=== PATIENT | female | born 1945 | race Caucasian/White ===

== ENCOUNTER → 2025-01-29 | Outpatient (CLI) | payer MEDICARE, SELFPAY ==
--- OUTSIDE RECORDS SUMMARY | 2025-01-29 06:44 | XMS RPT_ITS | CCD ---
Author Organization [facility] Care Team Providers Care Watermaster Name Role Phone Cyndi Horn Unavailable Ndiaye, Naveed L Unavailable Unavailable Ndiaye, Naveed L Unavailable Unavailable Ndiaye, Naveed L Unavailable Unavailable Ndiaye, Naveed L Unavailable Unavailable Cyndi Horn Unavailable Unavailable Cyndi Horn Unavailable Unavailable Cyndi Horn Unavailable Unavailable Blanca Quinonez A Unavailable Unavailab Cyndi Gonzalez Unavailable Unavailable Blanca Quinonez A Unavailable Unavailab david Quinonez Blanca A Unavailable Unavailab Blanca Smith A Unavailable Unavailab Cyndi Gonzalez Unavailable Unavailable Cyndi Horn Unavailable Unavailable Cyndi Horn Unavailable Unavailable Cyndi Horn Unavailable Unavailable Cyndi Horn Unavailable Unavailable Cyndi Horn Unavailable Unavailable Cyndi Horn Unavailable Unavailable Cyndi Horn Primary Care Provider Cyndi Horn Unavailable Unavailable Unavailable Cyndi Horn MD Primary Care Provider [phone] Unavailable Unavailable Unavailable Primary Care Provider Cyndi Shannon MD Unavailable Cyndi Horn MD Primary Care Provider [phone] Dr. Cyndi Horn Primary Care Unavail Dr. Cyndi Hale Attending Unavail Dr. Cyndi Hale Referring Unavail Cyndi Hale MD Primary Care Provider Cyndi Horn MD Primary Care Provider Cyndi Horn MD Primary Care Provider RODRI BENOIT Attending Unavailable HORN CYNDI ROCKWELL Primary Care Unavailable CORODRI Fitch R Referring Unavailable JUSTINA CYNDI ROCKWELL Primary Care Unavailable DEVNANI, NAOMI Referring Unavailable CORODRI Fitch R Referring Unavailable CORODRI Fitch R Attending Unavailable JUSTINA CYNDI ROCKWELL Primary Care Unavailable JUSTINA CYNDI ROCKWELL Primary Care Unavailable COConstantine, RODRI R Referring Unavailable CORODRI Fitch R Attending Unavailable JUSTINA CYNDI ROCKWELL Primary Care Unavailable CORODRI Fitch R Attending Unavailable DEVNANI, NAOMI Referring Unavailable JUSTINA CYNDI ROCKWELL Primary Care Unavailable LORENA URBINA Attending Unavailabl e CYNDI HORN Primary Care Unavailable HARLEY HOFFMAN Attending Unavailable CYNDI HORN Primary Care Unavailable CORODRI Fitch R Attending Unavailable DEVNANI, NAOMI Referring Unavailable HORN CYNDI ROCKWELL Primary Care Unavailable CORODRI Fitch R Attending Unavailable DEVNANI, NAOMI Referring Unavailable HORN CYNDI ROCKWELL Primary Care Unavailable DEVNANI, NAOMI Referring Unavailable CORODRI Fitch Attending Unavailable CYNDI HORN Primary Care Unavailable Cyndi Horn MD Unavailable Cyndi Horn MD Primary Care Provider Cyndi Horn MD Unavailable Cyndi Horn MD Primary Care Provider CYNDI HORN Primary Care Unavailable JOSE QUISPE Attending Unavailable Etherington, Napoleon Unavailable Unavailable Etherhector, Napoleon Unavailable Unavailable Denilson, Napoleon Unavailable Unavailable Cyndi Horn MD Unavailable Cyndi Horn MD Primary Care Provider [phone] CYNDI HORN Primary Care Unavailable SAVANNA CALDERON Referring Unavailable CYNDI HORN Primary Care Unavailable SUZANNE STEWARD Referring Unavailable CYNDI HORN Primary Care Unavailable LEWinnie SAVANNA B Referring Unavailable CYNDI HORN Primary Care Unavailable CYNDI HORN Primary Care Unavailable CYNDI HORN Admitting Unavailable ZACH VEGA Attending UnavailCYNDI Elena Referring Unavailable CYNDI HORN Admitting Unavailable RASHMI COHEN Attending Unavailable CYNDI HORN Referring Unavailable CYNDI HORN Primary Care Unavailable CYNDI HORN Attending Unavailable CYNDI HORN Primary Care Unavailable CYNDI HORN Attending Unavailable CYNDI HORN Primary Care Unavailable GERSON RAM Attending Unavailable CYNDI HORN Primary Care Unavailable GERSON RAM Attending Unavailable GERSON RAM Referring Unavailable CYNDI HORN Primary Care Unavailable CYNDI HORN Attending Unavailable CYNDI HORN Primary Care Unavailable SAVANNA CALDERON Attending Unavailable CYNDI HORN Referring Unavailable CYNDI HORN Primary Care Unavailable CYNDI HORN Attending Unavailable CYNDI HORN Primary Care Unavailable CYNDI HONR Attending Unavailable CYNDI HORN Primary Care Unavailable CYNDI HORN Attending Unavailable CYNDI HORN Primary Care Unavailable RACHAEL RAM Attending Unavailable CYNDI HORN Primary Care Unavailable CYNDI HORN Attending Unavailable CYNDI HORN Primary Care Unavailable CYNID HORN Attending Unavailable CYNDI HORN Primary Care Unavailable SAVANNA CALDERON Attending Unavailable CYNDI HORN Primary Care Unavailable Asya Cunha MD Unavailable CYNDI HONR Referring Unavailable CYNDI HORN Primary Care Unavailable CYNDI HORN Referring Unavailable CYNDI HORN Primary Care Unavailable CYNDI HORN Primary Care Unavailable CAMRYN CHILD Admitting Unavailable GERSON RAM Consulting Unavailable HUNG IYER Attending Unavailable CYNDI HORN Referring Unavailable CYNDI HORN Primary Care Unavailable CYNDI HORN Primary Care Unavailable TARIK HORN Attending Unavailable CYNDI HORN Referring Unavailable CYNDI HORN Primary Care Unavailable CYNDI HORN Referring Unavailable CYNDI HORN Primary Care Unavailable CYNDI HORN Referring Unavailable CYNDI HORN Primary Care Unavailable CYNDI HORN Referring Unavailable CYNDI HORN Primary Care Unavailable CYNDI HORN Referring Unavailable CYNDI HORN Primary Care Unavailable TARIK HORN Attending Unavailable TARIK HORN Referring Unavailable CNYDI HORN Primary Care Unavailable CYNDI HORN Referring Unavailable CYNDI HORN Primary Care Unavailable CYNDI HORN Referring Unavailable CYNDI HORN Primary Care Unavailable CYNDI HORN Referring Unavailable CYNDI HORN Primary Care Unavailable SAVANNA CALDERON Referring Unavailable CYNDI HORN Primary Care Unavailable CYNDI HORN Primary Care Unavailable RALEIGH STEWART Attending Unavailable CYNDI HORN Referring Unavailable CYNDI HORN Primary Care Unavailable CYNDI HORN Referring Unavailable CYNDI HORN Primary Care Unavailable CYNDI HORN Primary Care Unavailable NICHELLE, HAFIZ A Admitting Unavailable NICHELLE, HAFIZ A Attending Unavailable NAVEED GUSTAFSON Attending Unavailable CYNDI HORN Primary Care Unavailable NICHELLE, HAFIZ A Referring Unavailable CYNDI HORN Primary Care Unavailable ELIZABETH ROUSSEAU Attending Unavailable NICHELLE, HAFIZ A Referring Unavailable CYNDI HORN O Primary Care Unavailable NICHELLE, HAFIZ A Referring Unavailable CYNDI HORN Primary Care Unavailable NICHELLE, HAFIZ A Referring Unavailable CYNDI HORN Primary Care Unavailable NICHELLE, HAFIZ A Referring Unavailable CYNDI HORN Primary Care Unavailable NAVEED GUSTAFSON Attending Unavailable CYNDI HORN Primary Care Unavailable NICHELLE, HAFIZ A Referring Unavailable CYNDI HORN Primary Care Unavailable NICHELLE, HAFIZ A Referring Unavailable CYNDI HORN Primary Care Unavailable NICHELLE, HAFIZ A Referring Unavailable CYNDI HORN Primary Care Unavailable NICHELLE, HAFIZ A Referring Unavailable CYNDI HORN Primary Care Unavailable ASYA CUNHA Attending Unavailable CYNDI HORN Referring Unavailable CYNDI HORN Primary Care Unavailable Allergies Allergy Classification Reported Allergen(s) Allergy Type Date of Onset Reaction(s) Facility (10 sources) Penicillins; Translations: [penicillins] Propensity to adverse reactions to drug 7 [facility] Work Phone: (11 sources) Penicillins; Translations: [Penicillins] Allergy to drug (finding) [facility] Work Phone: (1 source) Penicillins Propensity to adverse reactions to drug 7 [facility] (20 sources) Penicillins Drug Allergy 7 [facility] (20 sources) amLODIPine; Translations: [AMLODIPINE] Drug Allergy 3 [facility] Work Phone: (20 sources) Penicillins Drug Allergy 7 [facility] Medications Current Medications Medication Drug Class(es) Dates Sig (Normalized) Sig (Original) acetaminophen 325 mg oral tablet (7 sources) Start: 11-14-2024 take 1 tablet by mouth every four hours as needed Start: 09-21-2024 take 1 tablet by ari th every four hours as needed 650 mg, oral, Every 4 hours PRN, pain mild (1-3), first line, Starting on 09/21/24 at 2039, Administer tablet or oral liquid per patient preference., If ordered PRN for pain, nurse is permitted to administer this medication for higher pain scores based on patient preference? Yes End: 12-16-2024 take 2 tablets by mouth every six hours as needed acetaminophen (Tylenol) 325 mg tablet Take 2 tablets (650 mg) by mouth every 6 hours if needed for mild pain (1 - 3). 12/16/2024 Discontinued (Med List Cleanup) albuterol 0.833 mg/ml / ipratropium bromide 0.167 mg/ml inhalation solution (1 source) Anticholinergic, beta2-Adrenergic Agonist Start: 11-14-2024 take 3 mL by inhalation every six hours as needed 3 mL, nebulization, Every 6 hours PRN, wheezing, Starting on [place] 11/14/24 at 1629 ALPRAZolam 0.25 mg oral tablet (5 sources) Benzodiazepine Start: 10-19-2023 End: 02-09-2024 take 1 tablet by mouth every twenty-four hours as needed for anxiety and anxiety ALPRAZolam (Xanax) 0.25 mg tablet Indications: Anxiety with flying Take 1 tablet (0.25 mg) by mouth once daily as needed for anxiety. 4 tablet 10/19/2023 02/09/2024 Discontinued (Therapy completed) aluminum hydroxide 40 mg/ml / magnesium hydroxide 40 mg/ml / simethicone 4 mg/ml oral suspension (1 source) Start: 09-21-2024 amLODIPine 5 mg oral tablet (3 sources) Dihydropyridine Calcium Channel Marisela Start: 07-18-2022 End: 02-02-2023 amLODIPine (Norvasc) 5 mg tablet Indications: Primary hypertension TAKE 1 TABLET EVERY DAY 90 tablet 1 07/18/2022 02/02/2023 Discontinued (Therapy completed) Start: 04-18-2022 End: 06-01-2022 take 1 tablet by mouth once daily amLODIPine (Norvasc) 5 mg tablet Take 1 tablet (5 mg) by mouth once daily. 0 04/18/2022 06/01/2022 Discontinued (Side effects) Start: 03-10-2022 take 1 tablet by ari once daily amLODIPine Besylate 5 MG Oral Tablet Take 1 tablet daily Quantity: 30 Refills: 5 Ordered: 10-Mar-2022 Cyndi Horn MD Start : 10-Mar-2022 Active apixaban 5 mg oral tablet (9 sources) Factor Xa Inhibitor Start: 12-16-2024 take 1 tablet by mouth twice daily apixaban (Eliquis) 5 mg (74 tabs) tablet Indications: Other acute pulmonary embolism without acute cor pulmonale Take 1 tablet (5 mg) by mouth 2 times a day. 180 tablet 12/16/2024 Active Start: 11-16-2024 End: 12-16-2024 take 2 tablets by mouth twice daily in the evening, then take 1 tablet by mouth twice daily apixaban (Eliquis) 5 mg (74 tabs) tablet Indications: Other acute pulmonary embolism without acute cor pulmonale Take 2 tablets (10 mg) by mouth 2 times a day for 7 days, THEN 1 tablet (5 mg) 2 times a day. 74 tablet 11/16/2024 1:39 PM EDT 11/16/2024 12/16/2024 Discontinued (Reorder) Start: 11-16-2024 End: 12-23-2024 take 2 tablets by mouth twice daily in the evening, then take 1 tablet by mouth twice daily apixaban (Eliquis) 5 mg (74 tabs) tablet Indications: Other acute pulmonary embolism without acute cor pulmonale Take 2 tablets (10 mg) by mouth 2 times a day for 7 days, THEN 1 tablet (5 mg) 2 times a day. 74 tablet 11/16/2024 1:39 PM EDT 11/16/2024 12/23/2024 Active Start: 11-16-2024 End: 12-23-2024 take 2 tablets by mouth twice daily, then take 1 tablet by mouth twice daily apixaban (Eliquis) 5 mg (74 tabs) tablet Indications: Other acute pulmonary embolism without acute cor pulmonale Take 2 tablets (10 mg) by mouth 2 times a day for 7 days, THEN 1 tablet (5 mg) 2 times a day. 74 tablet 11/16/2024 12/23/2024 Active Start: 11-16-2024 End: 11-23-2024 apixaban (Eliquis) tablet 10 mg aspirin 81 mg delayed release oral tablet (9 sources) Platelet Aggregation Inhibitor, Nonsteroidal Anti-inflammatory Drug Start: 09-22-2024 End: 09-22-2024 take 81 mg by mouth once daily 81 mg, oral, Daily, First dose on 09/22/24 at 0900, Do not crush, chew, or split. atorvastatin 20 mg oral tablet (20 sources) HMG-CoA Reductase Inhibitor Start: 11-15-2024 take 20 mg by mouth once daily 20 mg, oral, Daily, First dose on Mon11/15/24 at 0900 Start: 09-10-2024 take 0.5 tablet by m outh once daily atorvastatin (Lipitor) 40 mg tablet Indications: Hyperlipidemia, unspecified hyperlipidemia type Take 0.5 tablets (20 mg) by mouth once daily. 09/10/2024 Active Start: 07-16-2024 End: 09-10-2024 take 1 tablet by mouth once daily atorvastatin (Lipitor) 40 mg tablet Indications: Hyperlipidemia, unspecified hyperlipidemia type Take 1 tablet (40 mg) by mouth once daily. 7 tablet 07/16/2024 09/10/2024 Discontinued (Reorder) Start: 12-07-2023 take 1 tablet by ari th once daily atorvastatin (Lipitor) 40 mg tablet Indications: Hyperlipidemia, unspecified hyperlipidemia type Take 1 tablet (40 mg) by mouth once daily. 90 tablet 1 12/07/2023 Active Start: 03-07-2016 End: 12-07-2023 take 1 tablet by mouth once daily atorvastatin (LIPITOR) 20 MG tablet Take 1 (one) tablet (20 mg total) by mouth daily . 0 03/07/2016 Active Start: 03-07-2016 atorvastatin ( LIPITOR) 20 mg tablet Take by mouth q 24 HR. 03/07/2016 Active Comment on above: Take by mouth q 24 H R. benzocaine 15 mg / menthol 3 .6 mg oral lozenge (1 source) Standardized Chemical Allergen Start: 09-21-2024 benzonatate 100 mg oral caps ule (3 sources) Non-narcotic Antitussive Start: 09-21-2024 Start: 01-03-2023 End: 01-10-2023 take 1 capsule by mouth three times daily as needed for cough benzonatate (TESSALON) 100 MG capsule Indications: Cough, unspecified type Take 1 (one) capsule (100 mg total) by mouth 3 (three) times a day as needed for cough . 20 capsule 0 01/03/2023 01/10/2023 Active bifidobacterium animalis [id number] unt / lactobacillus acidophilus [id number] unt oral capsule (20 sources) take 1 capsule by mouth once daily L. acidophilus/Bifid. animalis 32 billion cell capsule Take 1 capsule by mouth once daily. Active L. acidophilus/B ifid. animalis 32 billion cell capsule Take by mouth. Active bisacodyl 10 mg rectal suppository (1 source) Stimulant Laxative Start: 09-21-2024 take 10 mg rectal route every twenty-four hours as needed calcium carbonate 500 mg chewable tablet (1 source) Start: 09-21-2024 calcium carbonate 1625 mg / cholecalciferol 0.0125 mg / vitamin k 0.04 mg chewable tablet (8 sources) Vitamin D End: 02-09-2024 calcium-vitamin D3-vitamin K (Viactiv) 650 mg-12.5 mcg-40 mcg chewable tablet Chew 2 tablets once daily. 02/09/2024 Discontinued (Therapy completed) cyanocobalamin, vitamin B-12, (VITAMIN B-12 ORAL) (20 sources) take 1 tablet by mouth in the morning cyanocobalamin, vitamin B-12, (VITAMIN B-12 ORAL) Take 1 tablet by mouth early in the morning.. Active cyanocobalamin, vitamin B-12, (VITAMIN B-12 ORAL) Take by mouth. Active cyanocobalamin, vitamin B-12, (VITAMIN B-12 ORAL) Take by mouth. 0 Active diclofenac sodium 0.01 mg/mg topical gel (12 sources) Nonsteroidal Anti-inflammatory Drug Start: 11-01-2024 End: 12-16-2024 diclofenac sodium (Voltaren) 1 % gel Indications: osteoarthritis Apply 4.5 inches (4 g) topically 4 times a day as needed (as needed for pain). 100 g 1 11/01/2024 12/16/2024 Discontinued (Med List Cleanup) docosahexaenoic acid/epa (FISH OIL ORAL) (20 sources) take 1 capsule by mouth in the morning docosahexaenoic acid/epa (FISH OIL ORAL) Take 1 capsule by mouth early in the morning.. Active take 1 capsule by mouth twice da [place] docosahexaenoic acid/epa (FISH OIL ORAL) 1,000mg. 1 capsule twice daily Active take 1 capsule by mouth twice da [place] docosahexaenoic acid/epa (FISH OIL ORAL) 1,000mg. 1 capsule twice daily 0 Active docusate sodium 100 mg oral capsule (2 sources) Start: 11-16-2022 End: 12-16-2022 take 1 capsule by mouth twice daily docusate sodium (COLACE) 100 mg capsule Take 1 capsule by mouth twice daily. 60 capsule 0 11/16/2022 12/16/2022 Active Comment on above: Take 1 capsule by mo [facility] twice daily. 0.4 ml enoxaparin sodium 100 mg/ml prefilled syringe (1 source) Low Molecular Weight Heparin Start: 09-21-2024 inject 40 mg by subcutaneous injection every twenty-four hours 40 mg, subcutaneous, Every 24 hours, First dose on 09/21/24 at 2100, Indications: deep vein thrombosis prevention famotidine 20 mg oral tablet (3 sources) Histamine-2 Receptor Antagonist Start: 11-18-2024 End: 05-17-2025 take 1 tablet by mouth once daily famotidine (Pepcid) 20 mg tablet Indications: dyspepsia Take 1 tablet (20 mg) by mouth once daily. 30 tablet 2 11/18/2024 12/16/2024 Discontinued (Med List Cleanup) furosemide 20 mg oral tablet (20 sources) Loop Diuretic Start: 12-16-2024 End: 02-16-2025 take 2 tablets by mouth twice daily furosemide (Lasix) 20 mg tablet Indications: Hyponatremia Take 2 tablets (40 mg) by mouth 2 times daily (morning and late afternoon). 120 tablet 1 12/18/2024 02/16/2025 Active Start: 10-29-2024 End: 01-07-2025 take 1 tablet by mouth twice daily furosemide (Lasix) 20 mg tablet Indications: Hyponatremia Take 1 tablet (20 mg) by mouth 2 times daily (morning and late afternoon). 60 tablet 1 12/16/2024 12/16/2024 Discontinued (Reorder) Start: 10-03-2024 End: 12-02-2024 take 2 tablets by mouth twice daily furosemide (Lasix) 20 mg tablet Indications: Hyponatremia Take 2 tablets (40 mg) by mouth 2 times daily (morning and late afternoon). 60 tablet 1 10/03/2024 10/29/2024 Discontinued (Reorder) Start: 09-24-2024 take 20 mg by mouth twice saray y 20 mg, oral, 2 times daily (morning and late afternoon), First dose on Mon09/24/24 at 1700 Start: 09-24-2024 End: 11-23-2024 take 1 tablet by mouth twice daily furosemide (Lasix) 20 mg tablet Indications: Hyponatremia Take 1 tablet (20 mg) by mouth 2 times daily (morning and late afternoon). 60 tablet 1 09/24/2024 2:50 PM EDT 09/24/2024 10/03/2024 Discontinued (Reorder) gabapentin 300 mg oral capsule (3 sources) Anti-epileptic Agent Start: 09-20-2024 End: 03-19-2025 gabapentin (Neurontin) 300 mg capsule Indications: Lumbar radiculopathy Take 1 capsule (300 mg) by mouth as needed at bedtime (pain). 30 capsule 1 09/20/2024 10/01/2024 Discontinued (Med List Cleanup) 12 hr guaiFENesin 600 mg extended release oral tablet (1 source) Start: 09-21-2024 1 ml hydrALAZINE hydrochloride 20 mg/ml injection (1 source) Arteriolar Vasodilator Start: 09-21-2024 take 10 mg intravenously every four hours as needed 0.5 ml HYDROmorphone hydrochloride 1 mg/ml prefilled syringe (1 source) Opioid Agonist Start: 09-21-2024 0.4 mg, intravenous, Every 3 hours PRN, pain breakthrough, Starting on 09/21/24 at 2202 hydrOXYzine hydrochloride 50 mg oral tablet (1 source) Antihistamine Start: 09-21-2024 take 1 tablet by mouth every four hours as needed lactobacillus acidophilus [id number] unt / pectin 100 mg oral capsule (1 source) Start: 11-15-2024 take 1 capsule by mouth once daily 1 capsule, oral, Daily, First dose on Mon11/15/24 at 0900 lisinopril 10 mg oral tablet (2 sources) Angiotensin Converting Enzyme Inhibitor Start: 06-01-2022 End: 11-28-2022 take 1 tablet by mouth once daily lisinopril 10 mg tablet Indications: Primary hypertension Take 1 tablet (10 mg) by mouth once daily. 30 tablet 5 06/01/2022 06/30/2022 Discontinued (Other) losartan potassium 25 mg oral tablet (20 sources) Angiotensin 2 Receptor Marisela Start: 11-05-2024 End: 12-10-2025 take 1 tablet by mouth once daily losartan (Cozaar) 25 mg tablet Indications: Primary hypertension Take 1 tablet (25 mg) by mouth once daily. 11/05/2024 12/10/2025 Active Start: 03-08-2024 End: 03-08-2025 take 1 tablet by mouth once daily losartan (Cozaar) 50 mg tablet Indications: Primary hypertension Take 1 tablet (50 mg) by mouth once daily. 30 tablet 5 09/10/2024 10/03/2024 Discontinued (Med List Cleanup) Start: 06-30-2022 End: 02-02-2024 take 1 tablet by mouth once daily losartan (Cozaar) 50 mg tablet Indications: Primary hypertension Take 1 tablet (50 mg) by mouth once daily. 90 tablet 3 02/02/2023 02/02/2024 Active Start: 06-30-2022 End: 06-30-2023 take 1 tablet by mouth every twenty-four hours losartan (COZAAR) 50 mg tablet Take 50 mg by mouth every 24 hours. 06/30/2022 Active Comment on above: Take 50 mg by mouth every 24 hours. Take 1 tablet by ari th every afternoon. melatonin 3 mg oral tablet (1 source) Start: take 6 mg by mouth once daily as needed for sleep 6 mg, oral, Nightly PRN, sleep, Starting on 09/21/24 at 2038 meloxicam 15 mg oral tablet (9 sources) Nonsteroidal Anti-inflammatory Drug Start: End: take 15 mg by mouth once daily at mealtime 15 mg, oral, Daily with breakfast, First dose (after last modification) on Mon09/24/24 at 0915, May administer with food to reduce GI upset. Start: 09-19-2024 End: 09-19-2025 take 1 tablet by mouth once daily at breakfast meloxicam (Mobic) 15 mg tablet Indications: Acute left-sided low back pain with left-sided sciatica Take 1 tablet (15 mg) by mouth once daily with breakfast. 30 tablet 09/25/2024 10/01/2024 Discontinued (Med List Cleanup) methocarbamol 500 mg oral tablet (15 sources) Muscle Relaxant Start: 09-21-2024 take 500 mg by mouth once daily as needed for muscle spasms 500 mg, oral, Nightly PRN, muscle spasms, Starting on 09/21/24 at 2038 Start: 09-10-2024 End: 10-29-2024 methocarbamol (Robaxin) 500 mg tablet Indications: Acute pain of right shoulder Take 1 tablet (500 mg) by mouth as needed at bedtime for muscle spasms for up to 10 days. 10 tablet 09/10/2024 10/29/2024 Discontinued (Therapy completed) 5 ml metoprolol tartrate 1 mg/ml injection (1 source) beta-Adrenergic Marisela Start: 09-21-2024 take 5 mg intravenously every six hours as needed mirtazapine 15 mg oral tablet (18 sources) Start: 12-19-2024 take 1 tablet by mouth once daily at bedtime mirtazapine (Remeron) 15 mg tablet Indications: Mood change Take 1 tablet (15 mg) by mouth once daily at bedtime. 90 tablet 1 12/19/2024 Active Start: 11-05-2024 take 1 tablet by ari th once daily at bedtime mirtazapine (Remeron) 15 mg tablet Indications: Mood change Take 1 tablet (15 mg) by mouth once daily at bedtime. 30 tablet 2 11/05/2024 Active Start: 10-29-2024 End: 01-27-2025 take 1 tablet by mouth once daily at bedtime mirtazapine (Remeron) 7.5 mg tablet Indications: Mood change Take 1 tablet (7.5 mg) by mouth once daily at bedtime. 30 tablet 2 10/29/2024 11/05/2024 Discontinued (Reorder) 1 ml morphine sulfate 2 mg/ml prefilled syringe (2 sources) Opioid Agonist Start: 11-14-2024 take 1 mg intravenously every four hours as needed 1 mg, intravenous, Every 4 hours PRN, pain severe (7-10), first line, Starting on [place] 11/14/24 at 1629 Start: 11-14-2024 take 0.5 mg intravenously ever y four hours as needed multivit-min/ferrous fumarate (MULTI VITAMIN ORAL) (1 source) End: 06-01-2022 multivit-min/ferrous fumarate (MULTI VITAMIN ORAL) Take by mouth. 0 06/01/2022 Discontinued (Therapy completed) ondansetron 8 mg disintegrating oral tablet (18 sources) Serotonin-3 Receptor Antagonist Start: 10-29-2024 End: 11-18-2024 take 1 tablet by mouth every eight hours for nausea ondansetron ODT (Zofran-ODT) 8 mg disintegrating tablet Indications: prevention of chemotherapy-induced nausea and vomiting Dissolve 1 tablet (8 mg) in the mouth every 8 hours if needed for nausea or vomiting. 20 tablet 1 11/18/2024 Active Start: 09-21-2024 take 4 mg intravenously every four hours as needed ondansetron ODT (Zofran-ODT) disintegrating tablet 4 mg (1 source) Start: 11-14-2024 take 1 tablet by mouth every eight hours as needed ondansetron ODT (Zofran-ODT) disintegrating tablet 4 mg polyethylene glycol 3350 [id number] mg powder for oral solution (4 sources) Osmotic Laxative Start: 11-14-2024 17 g, oral, Daily, First dose on [place] 11/14/24 at 1645, Bowel Regimen - for prevention of constipation. Start: 09-21-2024 take 17 g by mouth e very twenty-four hours as needed Start: 11-16-2022 End: 12-16-2022 polyethylene glycol 3350 (MT RALAX) 17 gram/dose powder Take 17 g by mouth once daily. Dissolve dose in 4 - 8 ounces of liquid and take as directed. 510 g 0 11/16/2022 12/16/2022 Active Comment on above: Take 17 g by mouth o nce daily. Dissolve dose in 4 - 8 ounces of liquid and take as directed. potassium chloride 20 meq powder for oral solution (20 sources) Start: 12-16-2024 take 20 mEq by mouth once daily potassium chloride (Klor-Con) 20 mEq packet Indications: Hyponatremia Take 20 mEq by mouth once daily. 30 packet 2 12/16/2024 Active Start: 11-14-2024 End: 11-16-2024 take 1 [oz_av] by mouth once 20 mEq, oral, Once, On Sa t 11/16/24 at 1230, For 1 dose, Dissolve each packet in 4 ounces of water = 5 mEq per 1 oz fluid. Start: 11-05-2024 End: 12-16-2024 take 15 mL by mouth once daily potassium chloride 20 m Eq/15 mL liquid Indications: Hypokalemia Take 15 mL (20 mEq) by mouth once daily. 473 mL 1 11/05/2024 12/16/2024 Discontinued (Med List Cleanup) Start: 10-17-2024 End: 10-17-2025 take 1 tablet by mouth once daily potassium chloride CR 20 mEq ER tablet Indications: Hypokalemia Take 1 tablet (20 mEq) by mouth once daily. Do not crush or chew. 30 tablet 11 10/17/2024 11/05/2024 Discontinued (Therapy completed) Start: 09-21-2024 End: 09-21-2024 40 mEq, oral, Once, On Sat at 1830, For 1 dose, Best given with food and plenty of water to minimize gastric irritation. Do not crush or chew. predniSONE 20 mg oral tablet (12 sources) Start: 11-18-2024 End: 12-03-2024 take 1 tablet by mouth three times daily, then take 1 tablet by mouth twice daily, then take 1 tablet by mouth once daily predniSONE (Deltasone) 20 mg tablet Indications: lumbar radiculopathy Take 1 tablet (20 mg) by mouth 3 times a day for 5 days, THEN 1 tablet (20 mg) 2 times a day for 5 days, THEN 1 tablet (20 mg) once daily for 5 days. 30 tablet 11/18/2024 12/03/2024 Active Start: 10-03-2024 End: 10-29-2024 predniSONE (Deltasone) 10 mg tablet Indications: Lumbar radiculopathy 4 tabs daily for 3 days, 3 tabs daily for 3 days, 2 tabs daily for 3 days, 1 tab daily for 3 days, then discontinue 30 tablet 10/03/2024 10/29/2024 Discontinued (Therapy completed) Start: 09-10-2024 End: 09-24-2024 predniSONE (Deltasone) 10 mg tablet Indications: Acute left- sided low back pain with left-sided sciatica 4 tabs daily for 3 days, 3 tabs daily for 3 days, 2 tabs daily for 3 days, 1 tab daily for 3 days, then discontinue 30 tablet 09/10/2024 09/24/2024 Discontinued (Stop Taking at Discharge) pregabalin 50 mg oral capsule (7 sources) Start: 12-16-2024 take 1 capsule by mouth twice daily pregabalin (Lyrica) 50 mg capsule Indications: lumbar radiculopathy Take 1 capsule (50 mg) by mouth 2 times a day. 60 capsule 2 12/16/2024 Active Start: 11-18-2024 End: 12-16-2024 take 1 capsule by mouth twice daily pregabalin (Lyrica) 25 mg capsule Indications: lumbar radiculopathy Take 1 capsule (25 mg) by mouth 2 times a day. 60 capsule 2 11/18/2024 12/16/2024 Discontinued (Reorder) prochlorperazine 5 mg/ml injectable solution (1 source) Phenothiazine Start: 09-21-2024 take 10 mg intravenously every six hours as needed sodium chloride 1000 mg oral tablet (20 sources) Start: 12-16-2024 End: 02-14-2025 take 2 tablets by mouth twice daily sodium chloride 1,000 mg tablet Indications: hyponatremia Take 2 tablets (2 g) by mouth 2 times daily (morning and late afternoon). 120 tablet 1 12/16/2024 02/14/2025 Active Start: 11-14-2024 take 2 g by mouth twice daily 2 g (2,000 mg), oral, 2 times daily (morning and late afternoon), First dose on [place] 11/14/24 at 1700 Start: 11-02-2024 End: 11-03-2024 take 150 mL intravenously every hour 150 mL/hr, intravenous, Continuous, Starting on 11/02/24 at 1450, For 1 day Start: 10-15-2024 End: 10-15-2024 As needed, Starting on Tue at 1415, Intraprocedure Start: 09-24-2024 take 2 g by mouth twice daily 2 g (2,000 mg), oral, 2 times daily (morning and late afternoon), First dose on Mon09/24/24 at 1700 Start: 09-24-2024 End: 11-23-2024 take 2 tablets by mouth twice daily sodium chloride 1,000 mg tablet Indications: Hyponatremia Take 2 tablets (2 g) by mouth 2 times daily (morning and late afternoon). 120 tablet 1 09/24/2024 2:50 PM EDT 09/24/2024 11/20/2024 Discontinued (Reorder) Start: 09-21-2024 End: 09-22-2024 take 125 mL intravenously every hour 125 mL/hr, intravenous, Continuous, Starting on 09/21/24 at 1935, For 1 day traMADol hydrochloride 50 mg oral tablet (5 sources) Opioid Agonist Start: 09-24-2024 End: 10-03-2024 take 1 tablet by mouth every eight hours in the evening for pain traMADol (Ultram) 50 mg tablet Indications: Acute left-sided low back pain with left-sided sciatica Take 1 tablet (50 mg) by mouth every 8 hours if needed for severe pain (7 - 10) for up to 21 doses. 21 tablet 09/24/2024 2:50 PM EDT 09/24/2024 10/03/2024 Discontinued (Med List Cleanup) Zinc (20 sources) End: 08-03-2023 ZINC ORAL Take by mouth. 08/03/2023 Discontinued (Therapy completed) ZINC ORAL Take b y mouth. Active ZINC ORAL Take b y mouth. 0 Active Zinc 25 MG TABS Quantity: 0 Refills: 0 Ordered: 04-Feb-2020 DO Active Zinc 25 MG Oral Tablet Quantity: 0 Refills: 0 Ordered: 04-Feb-2020 DO Active zolpidem tartrate 5 mg oral tablet (1 source) gamma-Aminobutyric Acid-ergic Agonist Start: 11-14-2024 take 5 mg by mouth once daily as needed for sleep 5 mg, oral, Nightly PRN, sleep, Starting on [place] 11/14/24 at 1843 Completed/Discontinued Medications Medication Drug Class(es) Dates Sig (Normalized) Sig (Original) ascorbic acid/collagen hydr (COLLAGEN SKIN RENEWAL ORAL) (20 sources) End: 11-14-2024 ascorbic acid/collagen hydr (COLLAGEN SKIN RENEWAL ORAL) Take by mouth once daily. 11/14/2024 Discontinued (Entered in Error) ascorbic acid/co llagen hydr (COLLAGEN SKIN RENEWAL ORAL) Take by mouth once daily. Active ascorbic acid/co llagen hydr (COLLAGEN SKIN RENEWAL ORAL) Take by mouth. Active DULoxetine 30 mg delayed release oral capsule (14 sources) Serotonin and Norepinephrine Reuptake Inhibitor Start: 11-05-2024 End: 12-05-2024 take 1 capsule by mouth once daily at mealtime DULoxetine (Cymbalta) [address] capsule Indications: Lumbar radiculopathy Take 1 capsule (30 mg) by mouth once daily. Do not crush or chew. Take in the morning with food. 11/05/2024 11/18/2024 Discontinued (Side effects) Start: 10-02-2024 End: 11-01-2024 take 1 capsule by mouth once daily at mealtime DULoxetine (Cymbalta) [address] capsule Indications: Lumbar radiculopathy Take 1 capsule (30 mg) by mouth once daily. Do not crush or chew. Take in the morning with food. 30 capsule 10/02/2024 10/29/2024 Discontinued (Med List Cleanup) estradiol 0.1 mg/ml vaginal cream (8 sources) Estrogen Start: 02-01-2022 End: 11-08-2022 estradiol (ESTRACE) 0.01 % (0.1 mg/gram) vaginal cream Apply 1 pea-sized amount of cream into the lower vagina with fingertip every night for 2 weeks then 3 times weekly. 42.5 g 3 02/01/2022 11/08/2022 Discontinued (Course of therapy completed) Comment on above: Apply 1 pea-sized am ount of cream into the lower vagina with fingertip every night for 2 weeks then 3 times weekly. Fish Oil OIL (11 sources) Fish Oil OIL 1,0 00mg. 1 capsule twice daily Quantity: 0 Refills: 0 Ordered: 14-Feb-2019 DO Active 250 ml heparin sodium, porcine 100 unt/ml injection (1 source) Unfractionated Heparin, Anti-coagulant Start: 11-14-2024 End: 11-16-2024 0-4,500 Units/hr (0-45 mL/hr), intravenous, Continuous, Starting on [place] 11/14/24 at 0915, Until 11/16/24 at 1028, High Intensity Heparin Protocol ( Use heparin calculator for units/hr rate Maximum Initial Dose: 2000 units/hr Recheck Heparin Assay, UFH level 4 hours after any rate change, or per protocol. Titration Table: Heparin Assay, UFH 1.2: NoBolus. HOLD heparin infusion for 1 hour, then recheck heparin assay: *If repeat is > 0.7, continue to HOLD INFUSION. -Confirm last draw was performed correctly (pump was paused for a minimum of 2 minutes, sample NOT drawn off line/lumen where medication was infusing) -Contact provider for further orders. *If repeat is 4 hours, contact provider for orders. Notify providerof last previous therapeutic dose, provider to place new orders (+/- bolus order). Provider to order any additional labs or monitoring, if needed. heparin bolus from bag 4,300 Units (1 source) Start: 11-14-2024 End: 11-14-2024 4,300 Units (rounded from 4,264 Units = 80 Units/kg 53.3 kg), intravenous, Once, On [place] 11/14/24 at 0915, For 1 dose, Initial bolus. iohexol (OMNIPaque) 300 mg iodine/mL solution 3 mL (2 sources) Start: 10-15-2024 End: 10-15-2024 3 mL, miscellaneous, Once in OR, Starting on 10/15/24 at 1445, For 1 dose, Intraprocedure iohexol (OMNIPaque) 350 mg iodine/mL solution 68 mL (2 sources) Start: 11-14-2024 End: 11-14-2024 68 mL, intravenous, Once in imaging, Starting on [place] 11/14/24 at 1215, For 1 dose Start: 09-21-2024 End: 09-21-2024 68 mL, intravenous, Once in imaging, Starting on 09/21/24 at 1806, For 1 dose iohexol (OMNIPaque) 350 mg iodine/mL solution 72 mL (1 source) Start: 11-12-2024 End: 11-12-2024 72 mL, intravenous, Once in imaging, Starting on 11/12/24 at 1329, For 1 dose 10 ml lidocaine hydrochloride 20 mg/ml injection (2 sources) Antiarrhythmic, Amide Local Anesthetic Start: 10-15-2024 End: 10-15-2024 120 mg (6 mL), infiltration, Once, On Mon10/15/24 at 1500, For 1 dose, Intraprocedure Start: 10-15-2024 End: 10-15-2024 120 mg (6 mL), infiltration, Once, On Mon10/15/24 at 1500, For 1 dose, Intraprocedure Magnesium (12 sources) End: 09-21-2024 magnesium 200 mg tablet Take by mouth. 09/21/2024 Discontinued (Entered in Error) magnesium 200 mg tablet Take by mouth. Active 1 ml methylPREDNISolone acetate 40 mg/ml injection (2 sources) Corticosteroid Start: 10-15-2024 End: 10-15-2024 As needed, Starting on Mon10/15/24 at 1415, Intraprocedure Multi Vitamin TABS (11 sources) Multi Vitamin TA BS Quantity: 0 Refills: 0 Ordered: 14-Feb-2019 DO Active oxyCODONE hydrochloride 5 mg oral tablet (1 source) Opioid Agonist Start: 09-22-2024 End: 09-24-2024 take 1 tablet by mouth every six hours as needed 5 mg, oral, Every 6 hours PRN, pain moderate (4-6), first line, Starting on Mon09/22/24 at 1250, If ordered PRN for pain, nurse is permitted to administer this medication for higher pain scores based on patient preference? Yes waskhyn-unqz-sizew-oreg- capryl 100 mg-150 mg- 50 mg-150 mg capsule (20 sources) End: 11-05-2024 take 1 capsule by mouth in the morning rrvnpbe-hpfj-iberq- oreg-capryl 100 mg-150 mg- 50 mg-150 mg capsule Take 1 capsule by mouth early in the morning.. 11/05/2024 Discontinued (Med List Cleanup) take 1 capsule by mo uth in the morning yffhljy-iuoj-qlsda-oreg-capryl 100 mg-15 0 mg- 50 mg-150 mg capsule Take 1 capsule by mouth early in the morning.. Active bmmdgpx-zaqx-afn wi-wiwe-rihwkm 100 mg-150 mg- 50 mg-150 mg capsule Take by mouth. Active cvgdnfe-jvyc-eft qa-figj-qcijod 100 mg-150 mg- 50 mg-150 mg capsule Take by mouth. 0 Active Unspecified Homeopathic (11 sources) Unspecified Home opathic ELDEBERRY SYRUP Quantity: 0 Refills: 0 Ordered: 04-Feb-2020 DO Active Viactiv CHEW (2 sources) Viactiv CHEW Gil ntity: 0 Refills: 0 Ordered: 03-Feb-2022 DO Active Vitamin B 12 TABS (11 sources) Vitamin B 12 TAB S Quantity: 0 Refills: 0 Ordered: 14-Feb-2019 DO Active Vitamin D3 CAPS (9 sources) Vitamin D3 CAPS Quantity: 0 Refills: 0 Ordered: 14-Feb-2019 DO Active zinc gluconate 50 mg oral tablet (14 sources) End: 11-05-2024 take 1 tablet by mouth once daily zinc gluconate 50 mg elemental tablet Take 1 tablet by mouth once daily. 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] 10-19-2023 Chronic Coronary atherosclerosis and other heart disease (1 source) Calcification of coronary artery 12-20-2023 Chronic Diseases of mouth; excluding dental (1 source) Dribbling from mouth; Translations: [Disturbances of salivary secretion] 06-30-2022 Episodic Disorders of lipid metabolism (20 sources) Hyperlipidemia; Translations: [Other and unspecified hyperlipidemia] Onset: 05-31-2022 05-31-2022 Chronic Essential hypertension (20 sources) Hypertensive disorder; Translations: [Unspecified essential hypertension] Onset: 05-31-2022 06-01-2022 Chronic Genitourinary symptoms and ill-defined conditions (1 source) Nocturia; Translations: [Nocturia] 02-10-2023 Episodic Immunizations and screening for infectious disease (8 sources) Requires vaccination; Translations: [Encounter for immunization] Onset: 02-07-2024 06-30-2022 Episodic Miscellaneous mental health disorders (2 sources) Chronic insomnia; Translations: [Psychophysiologic insomnia] Chronic Mood disorders (2 sources) Disturbance in mood; Translations: [Emotional lability] 10-29-2024 Episodic Nausea and vomiting (7 sources) Nausea; Translations: [Nausea] Onset: 11-18-2024 10-29-2024 Episodic Osteoarthritis (10 sources) Degenerative joint disease of hand; Translations: [Osteoarthritis of joint of left hand] Onset: 05-20-2016 05-20-2016 Chronic Osteoarthritis (1 source) Osteoarthritis of joint of left hand; Translations: [Primary osteoarthritis of left hand] Onset: 05-20-2016 05-20-2016 Osteoporosis (20 sources) Osteoporosis; Translations: [Osteoporosis, unspecified] Onset: 05-31-2022 05-31-2022 Chronic Other acquired deformities (1 source) Mallet finger of right hand; Translations: [Mallet finger of right finger(s)] Episodic Other aftercare (1 source) Surgical follow-up; Translations: [Encounter for follow-up examination after completed treatment for conditions other than malignant neoplasm] 02-10-2023 Episodic Other bone disease and musculoskeletal deformities (4 sources) Osteopenia; Translations: [Disorder of bone and cartilage, unspecified] Episodic Other connective tissue disease (1 source) Cramp in lower limb; Translations: [Cramp and spasm] 06-30-2022 Episodic Other connective tissue disease (1 source) Pain in left lower limb; Translations: [Pain in left leg] 09-08-2024 Episodic Other connective tissue disease (2 sources) Pain in left leg; Translations: [Pain in left leg] Onset: 09-08-2024 Episodic Other connective tissue disease (1 source) Recurrent falls ; Translations: [Repeated falls] 09-21-2024 Episodic Other connective tissue disease (4 sources) Pain in right hand; Translations: [Pain in right hand] 11-01-2024 Episodic Other connective tissue disease (3 sources) Other symptoms and signs involving the musculoskeletal system; Translations: [Other musculoskeletal symptoms referable to limbs] Onset: 11-02-2024 11-02-2024 Episodic Other connective tissue disease (4 sources) Pain in right hand; Translations: [Pain in right hand] Onset: 11-01-2024 Episodic Other connective tissue disease (1 source) Trigger thumb of left hand; Translations: [Trigger finger of left thumb] Onset: 05-20-2016 05-20-2016 Other gastrointestinal disorders (3 sources) Dysphagia; Translations: [Other dysphagia] Onset: 11-05-2024 11-05-2024 Episodic Other gastrointestinal disorders (1 source) Other dysphagia; Translations: [Other dysphagia] Onset: 11-05-2024 Episodic Other lower respiratory disease (2 sources) Cough; Translations: [Cough, unspecified type] 01-03-2023 Episodic Other lower respiratory disease (2 sources) Dyspnea; Translations: [Shortness of breath] Onset: 11-14-2024 11-15-2024 Episodic Other lower respiratory disease (1 source) Shortness of breath; Translations: [Shortness of breath] Onset: 11-14-2024 Episodic Other nervous system disorders (20 sources) Carpal tunnel syndrome of right wrist; Translations: [Carpal tunnel syndrome, right upper limb] Onset: 11-01-2024 10-21-2024 Chronic Other nervous system disorders (3 sources) Lesion of ulnar nerve, right upper limb; Translations: [Lesion of ulnar nerve] Onset: 10-21-2024 10-21-2024 Chronic Other nervous system disorders (4 sources) Carpal tunnel syndrome, right upper limb; Translations: [Carpal tunnel syndrome, right upper limb] Onset: 10-21-2024 Chronic Other nervous system disorders (4 sources) Paresthesia of hand ; Translations: [Anesthesia of skin] 10-01-2024 Episodic Other non-traumatic joint disorders (1 source) Pain in right shoulder; Translations: [Pain in joint, shoulder region] 09-10-2024 Episodic Other nutritional; endocrine; and metabolic disorders (2 sources) Decrease in appetite; Translations: [Anorexia] 11-02-2024 Episodic Other nutritional; endocrine; and metabolic disorders (4 sources) Weight decreased; Translations: [Abnormal weight loss] 11-05-2024 Episodic Other nutritional; endocrine; and metabolic disorders (2 sources) Abnormal weight loss; Translations: [Abnormal weight loss] Onset: 11-12-2024 Episodic Other nutritional; endocrine; and metabolic disorders (2 sources) Anorexia; Translations: [Anorexia] Onset: 11-02-2024 Episodic Other upper respiratory infections (2 sources) Sore throat symptom; Translations: [Acute pharyngitis, unspecified] 01-03-2023 Episodic Phlebitis; thrombophlebitis and thromboembolism (2 sources) Acute deep vein thrombosis of lower limb; Translations: [Acute embolism and thrombosis of other specified deep vein of left lower extremity] 11-18-2024 Episodic Pulmonary heart disease (3 sources) Chronic pulmonary embolism; Translations: [Chronic pulmonary embolism] Onset: 12-16-2024 12-30-2024 Chronic Pulmonary heart disease (20 sources) H/O: pulmonary embolus; Translations: [Personal history of pulmonary embolism] Onset: 11-14-2024 Resolved: 11-16-2024 11-14-2024 Episodic Residual codes; unclassified (20 sources) Obstructive sleep apnea syndrome; Translations: [Obstructive sleep apnea (adult)(pediatric)] Onset: 05-31-2022 Chronic Residual codes; unclassified (3 sources) Obstructive sleep apnea (adult) (pediatric); Translations: [MARCY (obstructive sleep apnea)] Onset: 05-31-2022 Chronic Residual codes; unclassified (1 source) Sleep apnea; Translations: [Sleep apnea, unspecified] 11-05-2024 Chronic Residual codes; unclassified (11 sources) At risk of heart disease; Translations: [Other specified conditions influencing health status] Episodic Residual codes; unclassified (1 source) Persistent insomnia; Translations: [Insomnia, unspecified] Episodic Residual codes; unclassified (1 source) Postoperative state; Translations: [Other specified postprocedural states] 12-28-2022 Episodic Residual codes; unclassified (3 sources) Noncompliance with medication regimen; Translations: [Noncompliance with medication regimen] 10-29-2024 Episodic Spondylosis; intervertebral disc disorders; other back problems (20 sources) Lumbar spondylosis; Translations: [Spondylosis without myelopathy or radiculopathy, lumbar region] Onset: 10-02-2024 Resolved: 10-29-2024 10-02-2024 Chronic Spondylosis; intervertebral disc disorders; other back problems (20 sources) Chronic thoracic back pain; Translations: [Pain in thoracic spine] Onset: 07-06-2023 Resolved: 10-29-2024 06-15-2023 Episodic Thyroid disorders (20 sources) Thyroid nodule; Translations: [Nontoxic uninodular goiter] Onset: 05-31-2022 05-31-2022 Chronic Unclassified (1 source) Post Op Onset: 02-10-2023 Unclassified (2 sources) Patient encounter status 02-09-2024 Unclassified (1 source) Weakness of left leg 11-02-2024 Viral infection (2 sources) Viral disease; Translations: [Viral infection, unspecified] 01-03-2023 Episodic Past or Other Problems Problem Classification Problem Date Documented Date Episodic/Chronic Diabetes mellitus without complication (20 sources) Increased glucose level; Translations: [Other abnormal glucose] Onset: 05-31-2022 05-31-2022 Episodic Fluid and electrolyte disorders (20 sources) Hyponatremia; Translations: [Hypo-osmolality and hyponatremia] Onset: 09-21-2024 09-21-2024 Episodic Malaise and fatigue (5 sources) Asthenia; Translations: [Weakness] Onset: 09-21-2024 09-21-2024 Episodic Other acquired deformities (20 sources) Mallet finger; Translations: [Mallet finger] Onset: 05-31-2022 Resolved: 02-02-2023 05-31-2022 Episodic Other and unspecified benign neoplasm (20 sources) Tubular adenoma of colon; Translations: [Benign neoplasm of colon] Onset: 05-31-2022 05-31-2022 Episodic Other connective tissue disease (10 sources) Trigger thumb, left thumb; Translations: [Snapping thumb syndrome] Onset: 05-20-2016 05-20-2016 Episodic Other connective tissue disease (20 sources) Myofascial pain; Translations: [Myalgia, other site] Onset: 10-02-2024 Resolved: 10-22-2024 10-02-2024 Episodic Other connective tissue disease (2 sources) Myalgia, other site; Translations: [Myalgia, other site] Onset: 10-02-2024 Episodic Other connective tissue disease (2 sources) Repeated falls; Translations: [Repeated falls] Onset: 09-21-2024 Episodic Other nervous system disorders (2 sources) Anesthesia of skin; Translations: [Anesthesia of skin] Onset: 10-01-2024 Episodic Other nervous system disorders (2 sources) Paresthesia of skin; Translations: [Paresthesia of skin] Onset: 10-01-2024 Episodic Other screening for suspected conditions (not mental disorders or infectious disease) (20 sources) Patient encounter status; Translations: [Breast screening, unspecified] Onset: 05-23-2022 Episodic Prolapse of female genital organs (20 sources) Vaginal vault prolapse; Translations: [Unspecified prolapse of vaginal maki] Onset: 05-31-2022 Resolved: 02-02-2023 Chronic Residual codes; unclassified (20 sources) Menopause present; Translations: [Symptomatic menopausal or female climacteric states] Onset: 05-31-2022 Resolved: 10-19-2023 05-31-2022 Episodic Residual codes; unclassified (3 sources) Other specified health status; Translations: [Other specified conditions influencing health status] Onset: 12-05-2022 Episodic Residual codes; unclassified (1 source) Other specified postprocedural states; Translations: [Post-operative state] Onset: 12-28-2022 Episodic Unclassified (20 sources) Onset: 06-01-2022 Resolved: 09-27-2024 06-01-2022 Unclassified (1 source) Acute pain of right shoulder 09-10-2024 Results Test Name Value Interpretation Reference Range Facility Serum Protein Electrophoresi s + ImmunofixationOrdered By: Baltazar Stanley on 01-02-2025 Albumin [Mass/Vol] 2.8 g/dL Low 3.4 - 5.0 g/dL [facility] Work Phone: Alpha 1 Globulin 0.6 g/dL 0.2 - 0.6 g/dL [facility] Work Phone: Alpha 2 Globulin 0.9 g/dL 0.4 - 1.1 g/dL [facility] Work Phone: Beta Globulin 0.9 g/dL 0.5 - 1.2 g/dL [facility] Work Phone: Gamma 0.9 g/dL 0.5 - 1.4 g/dL [facility] Work Phone: [phone] Immunofixation Comment [facility]: [phone] Interpretation and review of laboratory results Abnormal [facility] Work Phone: Path Review - Serum Immunofixation Reviewed and approved by BALTAZAR STANLEY on 01/02/25 at 10:20 AM. [facility] Work Phone: Path Review - Serum Protein Electrophoresis Reviewed and approved by BALTAZAR STANLEY on 01/02/25 at 10:20 AM. [facility] Work Phone: Protein Electrophoresis Comment Hypoalbuminemia. [facility] Work Phone: [facility] Work Phone: Immunoglobulin light chains. free panel (S)Ordered By: Kylah Irby on 12-31-2024 Immunoglobulin light chains.kappa [Mass/Vol] 3.26 mg/dL High 0.33 - 1.94 mg/dL [facility] Immunoglobulin light chains.kappa/Immunoglo bulin light chains.lambda (S) [Mass ratio] 0.66 0.26 - 1.65 [facility] Immunoglobulin light chains.lambda [Mass/Vol] 4.91 mg/dL High 0.57 - 2.63 mg/dL [facility] Interpretation and review of laboratory results Abnormal [facility] Undetected antigen excess is a rare event but cannot be excluded. If these free light chain results do not agree with other clinical or laboratory findings, or if the sample is from a patient that has previously demonstrated antigen excess, the result must be checked by retesting at a higher sample dilution. Results should always be interpreted in conjunction with other laboratory tests and clinical evidence; any anomalies should be discussed with the testing laboratory. [facility] Immunoglobulins (IgG, IgA, I gM)Ordered By: Sona Connolly on 12-31-2024 IgA [Mass/Vol] 265 mg/dL 70 - 400 mg/dL [facility] IgG [Mass/Vol] 930 mg/dL 700 - 1600 mg/dL [facility] IgM [Mass/Vol] 153 mg/dL 40 - 230 mg/dL [facility] Interpretation and review of laboratory results Normal [facility] MONOCLONAL PROTEINS MAY CAUSE FALSELY LOW RESULTS IN THIS ASSAY. SERUM PROTEIN ELECTROPHORESIS SHOULD BE DONE THE FIRST TEST TO EVALUATE MONOCLONAL GAMMOPATHY. [facility] F5 gene p.[id number] Molgen Q l (Bld/Tiss)on 12-30-2024 FACTOR V LEIDEN INTERPRETATION SEE COMMENT Normal [facility] Comment on above: Result Comment: INTE RPRETATION NORMAL result indicates there is no detection of Factor V Leiden (F5 R506Q, c.1601G>A). There would not be increased risk for thrombosis that is associated with this mutation. METHODOLOGY DNA was extracted from the specimen provided and analyzed using allele-specific TaqMan MGB probes following PCR. DISCLAIMER This laboratory developed test was developed and its analytical performance characteristics have been determined by [facility]. This test has not been cleared or approved by the FDA; however, the FDA has determined that such approval is not necessary. The [facility] is CAP accredited and certified under the Clinical Laboratory Improvement Amendments of 1988 (CLIA-88) as qualified to perform high complexity testing. Performed By: #### 1 9123-9 #### MISSAEL LAY ([id number]) [facility] ([facility]) [address] [place] [address] FACTOR V LEIDEN RESULT Normal Normal [facility] Comment on above: Performed By: #### 1 9123-9 #### MISSAEL LAY ([id number]) [facility] ([facility]) [address] [place] [address] F5 gene.p.[id number] 2024 ELECTRONICALLY SIGNED BY Camryn Travis MD [facility] Comment on above: Performed By: #### 1 9123-9 #### MISSAEL LAY ([id number]) [facility] ([facility]) [address] [place] [address] IMMUNOGLOBULINS (IGG, IGA, I GM)on 12-30-2024 IgA [Mass/Vol] 265 mg/dL Normal 70-400 [facility] Comment on above: Order Comment: MONOC LONAL PROTEINS MAY CAUSE FALSELY LOWRESULTS IN THIS ASSAY. SERUM PROTEINELECTROPHORESIS SHOULD BE DONE THEFIRST TEST TO EVALUATE MONOCLONAL GAMMOPATHY. Performed By: #### 1 9123-9 #### MISSAEL LAY ([id number]) [facility] ([facility]) [address] [place] [address] IgG [Mass/Vol] 930 mg/dL Normal 700-1600 [facility] Comment on above: Order Comment: MONOC LONAL PROTEINS MAY CAUSE FALSELY LOWRESULTS IN THIS ASSAY. SERUM PROTEINELECTROPHORESIS SHOULD BE DONE THEFIRST TEST TO EVALUATE MONOCLONAL GAMMOPATHY. Performed By: #### 1 9123-9 #### MISSAEL LAY ([id number]) [facility] ([facility]) [address] [place] [address] IgM [Mass/Vol] 153 mg/dL Normal 40-230 [facility] Comment on above: Order Comment: MONOC LONAL PROTEINS MAY CAUSE FALSELY LOWRESULTS IN THIS ASSAY. SERUM PROTEINELECTROPHORESIS SHOULD BE DONE THEFIRST TEST TO EVALUATE MONOCLONAL GAMMOPATHY. Performed By: #### 1 9123-9 #### MISSAEL LAY ([id number]) [facility] ([facility]) [address] [place] [address]9824 Immunoglobulin light chains. free panel (S)on 12-30-2024 Immunoglobulin light chains.kappa [Mass/Vol] 3.26 mg/dL High 0.33-1.94 [facility] Comment on above: Order Comment: Undet ected antigen excess is a rare event but cannot beexcluded. If these free light chain results do not agreewith other clinical or laboratory findings, or if thesample is from a patient that has previously demonstratedantigen excess, the result must be checked by retestingat a higher sample dilution. Results should always beinterpreted in conjunction with other laboratory testsand clinical evidence; any anomalies should be discussedwith the testing laboratory. Performed By: #### 2 4323-8 #### MISSAEL LAY ([id number]) [facility] ([facility]) [address] [place] [address] Immunoglobulin light chains.kappa/Immunoglo bulin light chains.lambda (S) [Mass ratio] 0.66 Normal 0.26-1.65 [facility] Comment on above: Order Comment: Undet ected antigen excess is a rare event but cannot beexcluded. If these free light chain results do not agreewith other clinical or laboratory findings, or if thesample is from a patient that has previously demonstratedantigen excess, the result must be checked by retestingat a higher sample dilution. Results should always beinterpreted in conjunction with other laboratory testsand clinical evidence; any anomalies should be discussedwith the testing laboratory. Performed By: #### 2 4323-8 #### MISSAEL LAY ([id number]) [facility] ([facility]) [address] [place] [address] 33074 Immunoglobulin light chains.lambda [Mass/Vol] 4.91 mg/dL High 0.57-2.63 [facility] Comment on above: Order Comment: Undet ected antigen excess is a rare event but cannot beexcluded. If these free light chain results do not agreewith other clinical or laboratory findings, or if thesample is from a patient that has previously demonstratedantigen excess, the result must be checked by retestingat a higher sample dilution. Results should always beinterpreted in conjunction with other laboratory testsand clinical evidence; any anomalies should be discussedwith the testing laboratory. Performed By: #### 2 4323-8 #### MISSAEL LAY ([id number]) [facility] ([facility]) [address] [place] [address] PROTHROMBIN GENE MUTATION AN ALYSISon 12-30-2024 FACTOR II-PROTHROMBIN INTERPRETATION SEE COMMENT Normal [facility] Comment on above: Result Comment: INTE RPRETATION NORMAL result indicates there is no detection of Prothrombin (F2) c.*97G>A (H05741C) pathogenic variant. There would not be increased risk for thrombosis that is associated with this mutation. METHODOLOGY DNA was extracted from the specimen provided and analyzed using allele-specific TaqMan MGB probes following PCR. DISCLAIMER This laboratory developed test was developed and its analytical performance characteristics have been determined by [facility]. This test has not been cleared or approved by the FDA; however, the FDA has determined that such approval is not necessary. The [facility] is CAP accredited and certified under the Clinical Laboratory Improvement Amendments of 1988 (CLIA-88) as qualified to perform high complexity testing. Performed By: #### 1 9123-9 #### MISSAEL LAY ([id number]) [facility] ([facility]) [address] [place], [place] [id number] FACTOR II-PROTHROMBIN RESULT Normal Normal Normal [facility] Comment on above: Performed By: #### 1 9123-9 #### MISSAEL LAY ([id number]) [facility] ([facility]) [address] [place] [address] 98298 Proteinon 12-30-2024 Protein [Mass/Vol] 6.1 g/dL Low 6.4-8.2 [facility] Comment on above: Performed By: #### 2 4323-8 #### MISSAEL LAY ([id number]) [facility] ([facility]) [address] [place] [address] 69289 Protein [Mass/Vol]on 025 Interpretation and review of laboratory results Abnormal [facility] Protein, Totalon 12-30-2024 Protein [Mass/Vol] 6.1 g/dL Low 6.4 - 8.2 g/dL [facility] SERUM PROTEIN ELECTROPHORESI S + IMMUNOFIXATIONon 12-30-2024 Albumin [Mass/Vol] 2.8 g/dL Low 3.4-5.0 [facility] Comment on above: Performed By: #### 1 9123-9 #### MISSAEL LAY ([id number]) [facility] ([facility]) [address] [place] [address] 45236 ALPHA 1 GLOBULIN 0.6 g/dL Normal 0.2-0.6 [facility] Comment on above: Performed By: #### 1 9123-9 #### MISSAEL LAY ([id number]) [facility] ([facility]) [address] [place] [address] 41836 ALPHA 2 GLOBULIN 0.9 g/dL Normal 0.4-1.1 [facility] Comment on above: Performed By: #### 1 9123-9 #### MISSAEL LAY ([id number]) [facility] ([facility]) [address] [place] [address] 47000 BETA GLOBULIN 0.9 g/dL Normal 0.5-1.2 [facility] Comment on above: Performed By: #### 1 9123-9 #### MISSAEL LAY ([id number]) [facility] ([facility]) [address] [place] [address] GAMMA GLOBULIN 0.9 g/dL Normal 0.5-1.4 [facility] Comment on above: Performed By: #### 1 9123-9 #### MISSAEL LAY ([id number]) [facility] ([facility]) [address] [place] [address] IMMUNOFIXATION COMMENT Detected [facility] Comment on above: Performed By: #### 1 9123-9 #### MISSAEL LAY ([id number]) [facility] ([facility]) [address] [place] [address] PATH REVIEW - SERUM IMMUNOFIXATION Reviewed and approved by BALTAZAR STANLEY on 01/02/25 at 10:20 AM. [facility] Comment on above: Performed By: #### 1 9123-9 #### MISSAEL LAY ([id number]) [facility] ([facility]) [address] [place] [address] PATH REVIEW-SERUM PROTEIN ELECTROPHORESIS Reviewed and approved by BALTAZAR STANLEY on 01/02/25 at 10:20 AM. [facility] Comment on above: Performed By: #### 1 9123-9 #### MISSAEL LAY ([id number]) [facility] ([facility]) [address] [place] [address] PROTEIN ELECTROPHORESIS COMMENT SEE COMMENT Normal [facility] Comment on above: Result Comment: Hypo albuminemia. Performed By: #### 1 9123-9 #### MISSAEL LAY ([id number]) [facility] ([facility]) [address] [place] [address] POINT OF CARE ULTRASOUND NO CHARGEon 12-17-2024 POINT OF CARE ULTRASOUND NO CHARGE These images are not reportable by radiology and will not be interpreted by Radiologists. Normal [facility] US Abdomenon 12-17-2024 These images are not reportable by radiology and will not be interpreted by Radiologists. IMAGING BASIC METABOLIC PANEL WITH A NION GAPon 12-13-2024 BUN/CREATININE RATIO SEE NOTE: Normal -22 [facility] Comment on above: Order Comment: FASTI NG:YES FASTING: YES Result Comment: Not Reported: BUN and Creatinine are within reference range. Performed By: #### 9 8138 #### [facility] [address], [address] [place] [address] Insurance Manager: Rob Simpson MD Calcium [Mass/Vol] 8.8 mg/dL Normal 8.6-10.4 [facility] Comment on above: Order Comment: FASTI NG:YES FASTING: YES Performed By: #### 9 7178 #### [facility] [address], [address] [place] [address] Insurance Manager: Rob Simpson MD Chloride [Moles/Vol] 100 mmol/L Normal 98-110 [facility] Comment on above: Order Comment: FASTI NG:YES FASTING: YES Performed By: #### 9 7948 #### [facility] [address], [address] [place] [address] Insurance Manager: Rob Simpson MD CO2 [Moles/Vol] 25 mmol/L Normal 20-32 [facility] Comment on above: Order Comment: FASTI NG:YES FASTING: YES Performed By: #### 9 2838 #### [facility] [address], [address] [place] [address] Insurance Manager: Rob Simpson MD Creatinine [Mass/Vol] 0.82 mg/dL Normal 0.60-1.00 [facility] Comment on above: Order Comment: FASTI NG:YES FASTING: YES Performed By: #### 9 2688 #### [facility] [address], [address] [place] [address] Insurance Manager: Rob Simpson MD ELECTROLYTE BALANCE 13 mmol/L (calc) Normal 7-17 [facility] Comment on above: Order Comment: FASTI NG:YES FASTING: YES Performed By: #### 9 8647 #### [facility] [place] [address] Insurance Manager: Rob Simpson MD GFR/1.73 sq M.predicted among non-blacks MDRD (S/P/Bld) [Vol rate/Area] 74 mL/min/{1.73_m2} Normal > OR = 60 [facility] Comment on above: Order Comment: FASTI NG:YES FASTING: YES Performed By: #### 9 7678 #### [facility] of [address], [address] [place] [address] Insurance Manager: Rob Simpson MD Glucose [Mass/Vol] 95 mg/dL Normal 65-99 [facility] Comment on above: Order Comment: FASTI NG:YES FASTING: YES Result Comment: Fasting reference interval Performed By: #### 9 4318 #### [facility] [address], [address] [place] [address] Insurance Manager: Rob Simpson MD Potassium [Moles/Vol] 3.5 mmol/L Normal 3.5-5.3 [facility] Comment on above: Order Comment: FASTI NG:YES FASTING: YES Performed By: #### 9 2928 #### [facility] [address], [address] [place] [address] Insurance Manager: Rob Simpson MD Sodium [Moles/Vol] 138 mmol/L Normal 135-146 [facility] Comment on above: Order Comment: FASTI NG:YES FASTING: YES Performed By: #### 9 0998 #### [facility] [address], [address] [place] [address] Insurance Manager: Rob Simpson MD Urea nitrogen [Mass/Vol] 21 mg/dL Normal 7-25 [facility] Comment on above: Order Comment: FASTI NG:YES FASTING: YES Performed By: #### 9 1558 #### [facility] [address], [address] [place] [address] Insurance Manager: Rob Simpson MD BUN/CREATININE RATIO SEE NOTE: Normal 6-22 [facility] Comment on above: Order Comment: FASTI NG:YES FASTING: YES Result Comment: Not Reported: BUN and Creatinine are within reference range. Performed By: #### 9 9158 #### [facility] [address], [address] [place] [address] Insurance Manager: Rob Simpson MD Calcium [Mass/Vol] 8.6 mg/dL Normal 8.6-10.4 [facility] Comment on above: Order Comment: FASTI NG:YES FASTING: YES Performed By: #### 9 9358 #### [facility] [address], [address] [place] [address] Insurance Manager: Rob Simpson MD Chloride [Moles/Vol] 99 mmol/L Normal 98-110 [facility] t [facility] Comment on above: Order Comment: FASTI NG:YES FASTING: YES Performed By: #### 9 2328 #### [facility] [place] [address] Insurance Manager: Rob Simpson MD CO2 [Moles/Vol] 25 mmol/L Normal 20-32 [facility] Comment on above: Order Comment: FASTI NG:YES FASTING: YES Performed By: #### 9 2218 #### [facility] [address], [address] [place] [address] Insurance Manager: Rob Simpson MD Creatinine [Mass/Vol] 0.81 mg/dL Normal 0.60-1.00 [facility] Comment on above: Order Comment: FASTI NG:YES FASTING: YES Performed By: #### 9 8538 #### [facility] [place] [address] Insurance Manager: Rob Simpson MD ELECTROLYTE BALANCE 13 mmol/L (calc) Normal 7-17 [facility] Comment on above: Order Comment: FASTI NG:YES FASTING: YES Performed By: #### 9 6328 #### [facility] [address], [address] [place] [address] Insurance Manager: Rob Simpson MD GFR/1.73 sq M.predicted among non-blacks MDRD (S/P/Bld) [Vol rate/Area] 75 mL/min/{1.73_m2} Normal > OR = 60 [facility] Comment on above: Order Comment: FASTI NG:YES FASTING: YES Performed By: #### 9 8623 #### [facility] [address], [address] [place] [address] Insurance Manager: Rob Simpson MD Glucose [Mass/Vol] 95 mg/dL Normal 65-99 [facility] Comment on above: Order Comment: FASTI NG:YES FASTING: YES Result Comment: Fasting reference interval Performed By: #### 9 2498 #### [facility] [address], [address] [place] [address] Insurance Manager: Rob Simpson MD Potassium [Moles/Vol] 3.5 mmol/L Normal 3.5-5.3 [facility] Comment on above: Order Comment: FASTI NG:YES FASTING: YES Performed By: #### 9 5618 #### [facility] [address], [address] [place] [address] Insurance Manager: Rob Simpson MD Sodium [Moles/Vol] 137 mmol/L Normal 135-146 [facility] Comment on above: Order Comment: FASTI NG:YES FASTING: YES Performed By: #### 9 9668 #### [facility] [address], [address] [place] [address] Insurance Manager: Rob Simpson MD Urea nitrogen [Mass/Vol] 21 mg/dL Normal 7-25 [facility] Comment on above: Order Comment: FASTI NG:YES FASTING: YES Performed By: #### 9 1468 #### [facility] [address], [address] [place] [address] Insurance Manager: Rob Simpson MD ECG 12 leadOrdered By: Gertrudis Haji on 11-16-2024 Atrial Rate 100 BPM [facility] Work Phone: P Essex 21 degrees [facility] Work Phone: P Offset 201 ms [facility] Work Phone: P Onset 152 ms [facility] Work Phone: MA Interval 136 ms [facility] Work Phone: Q Onset 220 ms [facility] Work Phone: [phone] QRS Count 16 beats [facility] Work Phone: [phone] QRS Duration 72 ms [facility] Work Phone: [phone] QT Interval 338 ms [facility] Work Phone: [phone] QTC Calculation(Bazett) 436 ms [facility] Work Phone: [phone] QTC Fredericia 401 ms [facility] Work Phone: [phone] R Essex 1 degrees [facility] Work Phone: [phone] T Essex 47 degrees [facility] Work Phone: [phone] T Offset 389 ms [facility] Work Phone: [phone] Ventricular Rate 100 BPM [facility] Work Phone: [phone] [facility] Work Phone: [phone] ECG 12 leadon 11-16-2024 Sinus rhythm with Premature supraventricular complexes and Premature ventricular complexes or Fusion complexes Inferior infarct (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-2024) Possible Anterior infarct , age undetermined Abnormal ECG When compared with ECG of 02-NOV-2024 15:09, Fusion complexes are now Present Premature ventricular complexes are now Present Premature supraventricular complexes are now Present Borderline criteria for Anterior infarct are now Present ST now depressed in Anterior leads See ED provider note for full interpretation and clinical correlation Confirmed by Gertrudis Haji ([id number]) on 11/16/2024 11:22:13 AM Gertrudis Lucas PA-C - 11/16/2024 Sinus rhythm with Premature supraventricular complexes and Premature ventricular complexes or Fusion complexes Inferior infarct (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-2024) Possible Anterior infarct , age undetermined Abnormal ECG When compared with ECG of 02-NOV-2024 15:09, Fusion complexes are now Present Premature ventricular complexes are now Present Premature supraventricular complexes are now Present Borderline criteria for Anterior infarct are now Present ST now depressed in Anterior leads See ED provider note for full interpretation and clinical correlation Confirmed by Gertrudis Haji ([id number]) on 11/16/2024 11:22:13 AM [facility] Work Phone: Heparin Assayon 11-16-2024 Heparin unfractionated Chromogenic method Qn (PPP) 0.5 [facility] Heparin unfractionated Chrom ogenic method Qn (PPP)on 11-16-2024 Interpretation and review of laboratory results Normal [facility] The therapeutic reference range for UFH may be either 0.3-0.6 IU/mL or 0.3-0.7 IU/mL based on the clinical setting for anticoagulant therapy and the associated nomogram used. For Heparin dosing guidelines based on clinical scenario and Heparin Assay results, please refer to local Pharmacy and the [facility] Guidelines for Anticoagulation Therapy available on the [facility] intranet at: [email or web address] [email or web address]_[facility]_ Guidelines_for_Anticoagu .aspx [facility] Heparin.unfractionatedon Heparin unfractionated Chromogenic method Qn (PPP) 0.5 IU/mL Normal See Comment Below for Therapeutic Ranges [facility] Comment on above: Order Comment: The t herapeutic reference range for UFH may be either 0.3-0.6 IU/mL or 0.3-0.7 IU/mL based on the clinical setting for anticoagulant therapy and the associated nomogram used. For Heparin dosing guidelines based on clinical scenario and Heparin Assay results, please refer to local Pharmacy and the [facility] Guidelines for Anticoagulation Therapy available on the [facility] intranet at: [email or web address] [email or web address]_[email or web address] Performed By: #### 2 4323-8 #### CANAS ALIREZA ([id number]) [facility] ([facility]) [address] [place] [address] Basic metabolic 2000 panelon 11-15-2024 Anion gap [Moles/Vol] 11 mmol/L 10 - 2 0 mmol/L [facility] Calcium [Mass/Vol] 8.6 mg/dL 8.6 - 10. 3 mg/dL [facility] Chloride [Moles/Vol] 98 mmol/L 98 - 10 7 mmol/L [facility] CO2 [Moles/Vol] 26 mmol/L 21 - 32 mmol/L [facility] Creatinine [Mass/Vol] 0.53 mg/dL 0.50 - 1.05 mg/dL [facility] eGFR - PINF [facility] Comment on above: Calculations of ernesto mated GFR are performed using the 2020 CKD-EPI Study Refit equation without the race variable for the IDMS-Traceable creatinine methods. https://jasn.asnjournals.org/content/early/ASN.92617 44455 Glucose [Mass/Vol] 108 mg/dL High 74 - 99 mg/dL [facility] Interpretation and review of laboratory results Abnormal [facility] Potassium [Moles/Vol] 3.3 mmol/L Low 3.5 - 5.3 mmol/L [facility] Sodium [Moles/Vol] 132 mmol/L Low 136 - 145 mmol/L [facility] Urea nitrogen [Mass/Vol] 13 mg/dL 6 - 23 mg/dL [facility] Anion gap [Moles/Vol] 11 mmol/L Normal 10-20 [facility] Comment on above: Performed By: #### 2 4323-8 #### MISASEL LAY ([id number]) [facility] ([facility]) [facility] [place] [address] Calcium [Mass/Vol] 8.6 mg/dL Normal 8.6-10.3 [facility] Comment on above: Performed By: #### 2 4323-8 #### MISSAEL LAY ([id number]) [facility] ([facility]) [address] [place] [address] Chloride [Moles/Vol] 98 mmol/L Normal 98-107 [facility] Comment on above: Performed By: #### 2 4323-8 #### MISSAEL LAY ([id number]) [facility] ([facility]) [address] [place] [address] CO2 [Moles/Vol] 26 mmol/L Normal 21-32 [facility] Comment on above: Performed By: #### 2 4323-8 #### MISSAEL LAY ([id number]) [facility] ([facility]) [address] [place] [address] 73411 Creatinine [Mass/Vol] 0.53 mg/dL Normal 0.50-1.05 [facility] Comment on above: Performed By: #### 2 4323-8 #### MISSAEL LAY ([id number]) [facility] ([facility]) [address] [place] [address] 28954 Glomerular filtration rate >90 Normal >60 [facility] Comment on above: Result Comment: Calc ulations of estimated GFR are performed using the 2020 CKD-EPI Study Refit equation without the race variable for the IDMS-Traceable creatinine methods. https://jasn.asnjournals.org/content/early//ASN.27485 94209 Performed By: #### 2 4323-8 #### MISSAEL LAY ([id number]) [facility] ([facility]) [address] [place] [address] 99970 Glucose [Mass/Vol] 108 mg/dL High 74-99 [facility] Comment on above: Performed By: #### 2 432-8 #### MISSAEL LAY ([id number]) [facility] ([facility]) [address] [place] [address] 70063 Potassium [Moles/Vol] 3.3 mmol/L Low 3.5-5.3 [facility] Comment on above: Performed By: #### 2 4323-8 #### MISSAEL LAY ([id number]) [facility] ([facility]) [address] [place] [address] 13477 Sodium [Moles/Vol] 132 mmol/L Low 136-145 [facility] Comment on above: Performed By: #### 2 4323-8 #### MISSAEL ALY ([id number]) [facility] ([facility]) [facility] [place] [address] Urea nitrogen [Mass/Vol] 13 mg/dL Normal 6-23 [facility] Comment on above: Performed By: #### 2 4323-8 #### MISSAEL LAY ([id number]) [facility] [facility] [address] [place] [address] 25678 CBC panel Auto (Bld)on 11-15 Erythrocyte distribution width (RBC) [Ratio] 13.7 % 11.5 - 14.5 % [facility] Hematocrit (Bld) [Volume fraction] 34.8 % Low 36.0 - 46.0 % [facility] Hemoglobin (Bld) [Mass/Vol] 11.6 g/dL Low 12.0 - 16.0 g/dL [facility] Interpretation and review of laboratory results Abnormal [facility] MCH (RBC) [Entitic mass] 32.0 pg 26.0 - 34.0 pg [facility] MCHC (RBC) [Mass/Vol] 33.3 g/dL 32.0 - 36.0 g/dL [facility] MCV (RBC) [Entitic vol] 96 fL 80 - 100 fL [facility] Nucleated RBC/100 WBC (Bld) [Ratio] 0.0 % [facility] Platelets (Bld) [#/Vol] 253 10*3/uL [facility] RBC (Bld) [#/Vol] 3.63 10*6/uL Low [facility]ive [facility] WBC (Bld) [#/Vol] 13.1 10*3/uL High Unive [facility] Erythrocyte distribution width (RBC) [Ratio] 13.7 % Normal 11.5-14.5 [facility] Comment on above: Performed By: #### 2 4323-8 #### MISSAEL LAY ([id number]) [facility] ([facility]) [address] [place] [address] 50316 Hematocrit (Bld) [Volume fraction] 34.8 % Low 36.0-46.0 [facility] Comment on above: Performed By: #### 2 4323-8 #### MISSAEL LAY ([id number]) [facility] ([facility]) [facility] [place] [address] Hemoglobin (Bld) [Mass/Vol] 11.6 g/dL Low 12.0-16.0 [facility] Comment on above: Performed By: #### 2 432-8 #### MISSAEL LAY ([id number]) [facility] ([facility]) [address] [place] [address] 29348 MCH (RBC) [Entitic mass] 32.0 pg Normal 26.0-34.0 [facility] Comment on above: Performed By: #### 2 4322-8 #### MISSAEL LAY ([id number]) [facility] ([facility]) [address] [place] [address] 67508 MCHC (RBC) [Mass/Vol] 33.3 g/dL Normal 32.0-36.0 [facility] Comment on above: Performed By: #### 2 432-8 #### MISSAEL LAY ([id number]) [facility] ([facility]) [address] [place] [address] 75673 MCV (RBC) [Entitic vol] 96 fL Normal 80-100 [facility] Comment on above: Performed By: #### 2 4322-8 #### MISSAEL LAY ([id number]) [facility] ([facility]) [address] [place] [address] 75299 Nucleated RBC/100 WBC (Bld) [Ratio] 0.0 /100 WBCs Normal 0.0-0.0 [facility] Comment on above: Performed By: #### 2 432-8 #### MISSAEL LAY ([id number]) [facility] ([facility]) [address] [place] [address] 83834 Platelets (Bld) [#/Vol] 253 x10*3/uL Normal 150-450 [facility] Comment on above: Performed By: #### 2 4322-8 #### MISSAEL LAY ([id number]) [facility] ([facility]) [address] [place] [address] 51025 RBC (Bld) [#/Vol] 3.63 x10*6/uL Low 4.00-5.20 [facility] Comment on above: Performed By: #### 2 4322-8 #### MISSAEL MCDANIELHRLI ([id number]) [facility] ([facility]) [address] [place] [address] WBC (Bld) [#/Vol] 13.1 x10*3/uL High 4.4-11.3 [facility] Comment on above: Performed By: #### 2 4323-8 #### CANAS ALIREZA ([id number]) [facility] ([facility]) [address] [place] [address] Heparin Assay, UFHon 025 Heparin unfractionated Chromogenic method Qn (PPP) 0.6 [facility] Heparin unfractionated Chrom ogenic method Qn (PPP)on 11-15-2024 Interpretation and review of laboratory results Normal [facility] The therapeutic reference range for UFH may be either 0.3-0.6 IU/mL or 0.3-0.7 IU/mL based on the clinical setting for anticoagulant therapy and the associated nomogram used. For Heparin dosing guidelines based on clinical scenario and Heparin Assay results, please refer to local Pharmacy and the [facility] Guidelines for Anticoagulation Therapy available on the [facility] intranet at: [email or web address]_ Guidelines_for_Anticoagu .aspx [facility] Heparin.unfractionatedon Heparin unfractionated Chromogenic method Qn (PPP) 0.6 IU/mL Normal See Comment Below for Therapeutic Ranges [facility] Comment on above: Order Comment: When two (2) consecutive Heparin Assay, UFH results obtained 4 hours apart are therapeutic, obtain STAT Heparin Assay, UFH every a.m. Nursing to release order.The therapeutic reference range for UFH may be either 0.3-0.6 IU/mL or 0.3-0.7 IU/mL based on the clinical setting for anticoagulant therapy and the associated nomogram used. For Heparin dosing guidelines based on clinical scenario and Heparin Assay results, please refer to local Pharmacy and the [facility] Guidelines for Anticoagulation Therapy available on the [facility] intranet at: [email or web address]_ [email or web address]_[email or web address] Performed By: #### 2 4323-8 #### CANAS ALIREZA ([id number]) [facility] ([facility]) [address] [place] [address] SST TOPOrdered By: Hernando Casey ma on 11-15-2024 Extra Tube Hold for add-ons. [facility] Work Phone: Comment on above: Auto resulted. 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 Right Lower Venous: No evidence of acute deep vein thrombus visualized in the right lower extremity. Additional Findings; Cystic Structure noted in the popliteal fossa measuring 4.1 x 2.3 x 1.1 cm. Left Lower Venous: There is acute occlusive deep vein thrombosis visualized in the posterior tibial, peroneal and soleal veins. There is acute non-occlusive deep vein thrombosis visualized in the popliteal vein. The remainder of the left leg is negative [place] [address] [phone], Vascular Lab Report [facility] US LOWER EXTREMITY VENOUS DUPLEX BILATERAL Patient Name: UZMA Montero RENEE Reading Physician: [id number] Shannan Bolaños MD Study Date: 11/14/2024 Ordering Provider: [id number] ARMOND HOFFMAN MRN/PID: [id number] Fellow: Technologist: Morales Taylor RVT Date of /Age: 10 1945 Technologist 2: years Gender: F Admission Status: Emergency Location Performed: [facility] Diagnosis/ICD: Shortness of breath-R06.02 CPT Codes: 90346 Peripheral venous duplex scan for DVT complete Pertinent History: Leg pain and PE. CRITICAL RESULT Critical Result: Left leg DVT Notification called to Dr Armond Hoffman on 11/14/2024 at 11:07:53 AM. Acknowledged critical results notification communicated via at bedside by Wero Glowacki RVT. 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 Right Lower Venous: No evidence of acute deep vein thrombus visualized in the right lower extremity. Additional Findings; Cystic Structure noted in the popliteal fossa measuring 4.1 x 2.3 x 1.1 cm. Left Lower Venous: There is acute occlusive deep vein thrombosis visualized in the posterior tibial, peroneal and soleal veins. There is acute non-occlusive deep vein thrombosis visualized in the popliteal vein. The remainder of the left leg is negative for deep vein thrombosis. Imaging & Doppler Findings: Right Compressible Thrombus Flow Distal External Iliac Spontaneous/Phasic CFV Yes None Spontaneous/Phasic PFV Yes None FV Proximal Yes None Spontaneous/Phasic FV Mid Yes None FV Distal Yes None Popliteal Yes None Reflux Peroneal Yes None PTV Yes None Left Compress Thrombus Flow Distal External Iliac Spontaneous/Phasic CFV Yes None Spontaneous/Phasic PFV Yes None FV Proximal Yes None Spontaneous/Phasic FV Mid Yes None FV Distal Yes None Popliteal Partial Acute non-occlusive Spontaneous/Phasic Peroneal No Acute occlusive PTV No Acute occlusive Soleal No Acute occlusive [id number] Shannan Bolaños MD Final Shannan Mills MD - 11/15/2024 [place] [address] [phone], Vascular Lab Report [facility] US LOWER EXTREMITY VENOUS DUPLEX BILATERAL Patient Name: UZMA DURAN Reading Physician: [id number] Shannan Bolaños MD Study Date: 11/14/2024 Ordering Provider: [id number] ARMOND HOFFMAN MRN/PID: [id number] Fellow: Technologist: Morales Taylor RVDon Date of /Age: 10 1945 Technologist 2: years Gender: F Admission Status: Emergency Location Performed: [facility] Diagnosis/ICD: Shortness of breath-R06.02 CPT Codes: 88673 Peripheral venous duplex scan for DVT complete Pertinent History: Leg pain and PE. CRITICAL RESULT Critical Result: Left leg DVT Notification called to Dr Armond Hoffman on 11/14/2024 at 11:07:53 AM. Acknowledged critical results notification communicated via at bedside by Wero Taylor RVT. 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 Right Lower Venous: No evidence of acute deep vein thrombus visualized in the right lower extremity. Additional Findings; Cystic Structure noted in the popliteal fossa measuring 4.1 x 2.3 x 1.1 cm. Left Lower Venous: There is acute occlusive deep vein thrombosis visualized in the posterior tibial, peroneal and soleal veins. There is acute non-occlusive deep vein thrombosis visualized in the popliteal vein. The remainder of the left leg is negative for deep vein thrombosis. Imaging & Doppler Findings: Right Compressible Thrombus Flow Distal External Iliac Spontaneous/Phasic CFV Yes None Spontaneous/Phasic PFV Yes None FV Proximal Yes None Spontaneous/Phasic FV Mid Yes None FV Distal Yes None Popliteal Yes None Reflux Peroneal Yes None PTV Yes None Left Compress Thrombus Flow Distal External Iliac Spontaneous/Phasic CFV Yes None Spontaneous/Phasic PFV Yes None FV Proximal Yes None Spontaneous/Phasic FV Mid Yes None FV Distal Yes None Popliteal Partial Acute non-occlusive Spontaneous/Phasic Peroneal No Acute occlusive PTV No Acute occlusive Soleal No Acute occlusive [id number] Shannan Bolaños MD Final IMPRESSION: CONCLUSIONS: Right Lower Venous Insufficiency: There is reflux noted in the popliteal vein. Right Lower Venous: No evidence of acute deep vein thrombus visualized in the right lower extremity. Additional Findings; Cystic Structure noted in the popliteal fossa measuring 4.1 x 2.3 x 1.1 cm. Left Lower Venous: There is acute occlusive deep vein thrombosis visualized in the posterior tibial, peroneal and soleal veins. There is acute non-occlusive deep vein thrombosis visualized in the popliteal vein. The remainder of the left leg is negative for deep vein thrombosis. [facility] Work Phone: US.doppler Lower extremity v ein - bilateralOrdered By: Shannan Bolaños on 11-15-2024 [facility] Work Phone: APTTon 11-14-2024 aPTT Coag (PPP) [Time] 24 s Low Un [facility] CBC W Auto Differential pane l (Bld)on 11-14-2024 Basophils (Bld) [#/Vol] 0.07 10*3/uL [facility] Basophils/100 WBC (Bld) 0.5 % 0.0 - 2.0 % [facility] Eosinophils (Bld) [#/Vol] 0.09 10*3/uL [facility] Eosinophils/100 WBC (Bld) 0.7 % 0.0 - 6.0 % [facility] Erythrocyte distribution width (RBC) [Ratio] 13.6 % 11.5 - 14.5 % [facility] Hematocrit (Bld) [Volume fraction] 37.5 % 36.0 - 46.0 % [facility] Hemoglobin (Bld) [Mass/Vol] 12.6 g/dL 12.0 - 16.0 g/dL [facility] Immature granulocytes (Bld) [#/Vol] 0.14 10*3/uL [facility] Immature granulocytes/100 WBC (Bld) 1.0 % High 0.0 - 0.9 % [facility] Comment on above: Immature Granulocyte Count (IG) includes promyelocytes, myelocytes and metamyelocytes but does not include bands. Percent differential counts (%) should be interpreted in the context of the absolute cell counts (cells/UL). Interpretation and review of laboratory results Abnormal [facility] Lymphocytes (Bld) [#/Vol] 0.94 10*3/uL [facility] Lymphocytes/100 WBC (Bld) 6.9 % 13.0 - 44.0 % [facility] MCH (RBC) [Entitic mass] 31.8 pg 26.0 - 34.0 pg [facility] MCHC (RBC) [Mass/Vol] 33.6 g/dL 32.0 - 36.0 g/dL [facility] MCV (RBC) [Entitic vol] 95 fL 80 - 100 fL [facility] Monocytes (Bld) [#/Vol] 0.81 10*3/uL High [facility] Monocytes/100 WBC (Bld) 5.9 % 2.0 - 10.0 % [facility] Neutrophils (Bld) [#/Vol] 11.60 10*3/uL High [facility] Comment on above: Percent differential counts (%) should be interpreted in the context of the absolute cell counts (cells/uL). Neutrophils/100 WBC (Bld) 85.0 % 40.0 - 80.0 % [facility] Nucleated RBC/100 WBC (Bld) [Ratio] 0.0 % [facility] Platelets (Bld) [#/Vol] 286 10*3/uL [facility] RBC (Bld) [#/Vol] 3.96 10*6/uL Low Unive [facility] WBC (Bld) [#/Vol] 13.7 10*3/uL High [facility] Basophils (Bld) [#/Vol] 0.07 x10*3/uL Normal 0.00-0.10 [facility] Comment on above: Performed By: #### 1 4979-9 #### MISSAEL LAY ([id number]) [facility] ([facility]) [address] [place] [address] 55354 Basophils/100 WBC (Bld) 0.5 % Normal 0.0-2.0 [facility] Comment on above: Performed By: #### 1 4979-9 #### MISSAEL LAY ([id number]) [facility] ([facility]) [address] [place] [address] 39628 Eosinophils (Bld) [#/Vol] 0.09 x10*3/uL Normal 0.00-0.40 [facility] Comment on above: Performed By: #### 1 4979-9 #### MISSAEL LAY ([id number]) [facility] ([facility]) [address] [place] [address] 65691 Eosinophils/100 WBC (Bld) 0.7 % Normal 0.0-6.0 [facility] Comment on above: Performed By: #### 1 4979-9 #### MISSAEL LAY ([id number]) [facility] ([facility]) [address] [place] [address] 87637 Erythrocyte distribution width (RBC) [Ratio] 13.6 % Normal 11.5-14.5 [facility] Comment on above: Performed By: #### 1 4979-9 #### MISSAEL LAY ([id number]) [facility] ([facility]) [address] [place] [address] 80808 Hematocrit (Bld) [Volume fraction] 37.5 % Normal 36.0-46.0 [facility] Comment on above: Performed By: #### 1 4979-9 #### MISSAEL LAY ([id number]) [facility] ([facility]) [address] [place] [address] 80323 Hemoglobin (Bld) [Mass/Vol] 12.6 g/dL Normal 12.0-16.0 [facility] Comment on above: Performed By: #### 1 4979-9 #### MISSAEL LAY ([id number]) [facility] ([facility]) [address] [place] [address] 75145 Immature granulocytes (Bld) [#/Vol] 0.14 x10*3/uL Normal 0.00-0.50 [facility] Comment on above: Performed By: #### 1 4979-9 #### MISSAEL LAY ([id number]) [facility] ([facility]) [address] [place] [address] 33905 Immature granulocytes/100 WBC (Bld) 1.0 % High 0.0-0.9 [facility] Comment on above: Result Comment: Shiela ture Granulocyte Count (IG) includes promyelocytes, myelocytes and metamyelocytes but does not include bands. Percent differential counts (%) should be interpreted in the context of the absolute cell counts (cells/UL). Performed By: #### 1 4979-9 #### MISSAEL LAY ([id number]) [facility] ([facility]) [address] [place] [address] 85405 Lymphocytes (Bld) [#/Vol] 0.94 x10*3/uL Normal 0.80-3.00 [facility] Comment on above: Performed By: #### 1 4979-9 #### MISSAEL LAY ([id number]) [facility] ([facility]) [address] [place] [address] 43264 Lymphocytes/100 WBC (Bld) 6.9 % Normal 13.0-44.0 [facility] Comment on above: Performed By: #### 1 4979-9 #### MISSAEL LAY ([id number]) [facility] ([facility]) [address] [place] [address] 34473 MCH (RBC) [Entitic mass] 31.8 pg Normal 26.0-34.0 [facility] Comment on above: Performed By: #### 1 4979-9 #### MISSAEL LAY ([id number]) [facility] ([facility]) [address] [place] [address] 02774 MCHC (RBC) [Mass/Vol] 33.6 g/dL Normal 32.0-36.0 [facility] Comment on above: Performed By: #### 1 4979-9 #### MISSAEL LAY ([id number]) [facility] ([facility]) [address] [place], [place] [address] MCV (RBC) [Entitic vol] 95 fL Normal 80-100 [facility] Comment on above: Performed By: #### 1 4979-9 #### MISSAEL LAY ([id number]) [facility] ([facility]) [address] [place] [address] 60624 Monocytes (Bld) [#/Vol] 0.81 x10*3/uL High 0.05-0.80 [facility] Comment on above: Performed By: #### 1 4979-9 #### MISSAEL LAY ([id number]) [facility] ([facility]) [address] [place] [address] 05439 Monocytes/100 WBC (Bld) 5.9 % Normal 2.0-10.0 [facility] Comment on above: Performed By: #### 1 4979-9 #### MISSAEL LAY ([id number]) [facility] ([facility]) [address] [place] [address] 34659 Neutrophils (Bld) [#/Vol] 11.60 x10*3/uL High 1.60-5.50 [facility] Comment on above: Result Comment: Perc ent differential counts (%) should be interpreted in the context of the absolute cell counts (cells/uL). Performed By: #### 1 4979-9 #### MISSAEL LAY ([id number]) [facility] ([facility]) [address] [place] [address] 87969 Neutrophils/100 WBC (Bld) 85.0 % Normal 40.0-80.0 [facility] Comment on above: Performed By: #### 1 4979-9 #### MISSAEL LAY ([id number]) [facility] ([facility]) [address] [place] [address] 45100 Nucleated RBC/100 WBC (Bld) [Ratio] 0.0 /100 WBCs Normal 0.0-0.0 [facility] Comment on above: Performed By: #### 1 4979-9 #### MISSAEL LAY ([id number]) [facility] ([facility]) [address] [place] [address] 51650 Platelets (Bld) [#/Vol] 286 x10*3/uL Normal 150-450 [facility] Comment on above: Performed By: #### 1 4979-9 #### MISSAEL LAY ([id number]) [facility] ([facility]) [address] [place] [address] 68323 RBC (Bld) [#/Vol] 3.96 x10*6/uL Low 4.00-5.20 [facility] Comment on above: Performed By: #### 1 4979-9 #### MISSAEL ALY ([id number]) [facility] ([facility]) [address] [place] [address] 74918 WBC (Bld) [#/Vol] 13.7 x10*3/uL High 4.4-11.3 [facility] Comment on above: Performed By: #### 1 4979-9 #### MISSAEL LAY ([id number]) [facility] ([facility]) [address] [place] [address] ANGIO CHEST FOR PULMONARY EMBOLISMon 11-14-2024 CT ANGIO CHEST FOR PULMONARY EMBOLISM Interpreted By: Michael Cerrato, STUDY: CT ANGIO CHEST FOR PULMONARY EMBOLISM; 11/14/2024 12:13 pm INDICATION: Signs/Symptoms:requested by [facility] team - known PE on CT chest with IV contrast done 2 days ago. COMPARISON: CT chest abdomen and pelvis 11/12/2024 ACCESSION NUMBER(S): [id number] ORDERING CLINICIAN: ARMOND HOFFMAN TECHNIQUE: Helical data acquisition of the chest was obtained after intravenous administration of 68 ML Omnipaque 350, as per PE protocol. Images were reformatted in coronal and sagittal planes. Axial and coronal maximum intensity projection (MIP) images were created and reviewed. FINDINGS: LOWER NECK, MEDIASTINUM /MINH, AND AXILLA: Posterior right thyroid lobe lesion with central low attenuation measuring 7 mm incompletely characterized No thoracic lymphadenopathy by CT criteria. Esophagus within normal limits. HEART AND VESSELS: Normal cardiac size. No evidence of pericardial effusion. RV/LV ratio 1.22 may reflect right heart strain. No coronary artery calcifications. The study is not optimized for evaluation of coronary arteries. Nonocclusive filling defects at the bifurcation of the distal left main pulmonary artery extending into apical upper lobe and basilar left lower lobe segmental and subsegmental pulmonary arteries. Nonocclusive filling defect within posterior basal right lower lobe segmental and subsegmental pulmonary arteries. Unchanged subcentimeter pulmonary nodules the largest a linear nodule measuring 5 mm in length. Main pulmonary artery and its branches are unremarkable in caliber. No thoracic aortic aneurysm. LUNGS AND AIRWAYS: Trachea and central airways are patent. No endobronchial lesion. Negative for pneumonia, pulmonary edema or mass. No pneumothorax or pleural effusion. Mild atelectasis and scarring. UPPER ABDOMEN: Visualized subdiaphragmatic structures demonstrate no acute abnormality. CHEST WALL AND OSSEOUS STRUCTURES: No acute osseous abnormality.Multilevel degenerative changes of the imaged spine. IMPRESSION: 1. Mild burden of nonocclusive acute bilateral pulmonary emboli unchanged. 2. Elevated RV/LV ratio may reflect right heart strain. 3. Additional chronic and/or ancillary findings detailed above. Findings communicated with ARMOND HOFFMAN via secure Epic chat by Michael Cerrato MD at 12:48 pm 11/14/2024. MACRO: None Signed by: Michael Cerrato 11/14/2024 12:51 PM Dictation workstation: [id number] [facility] CT Chest W contrast IV and C T angiogram Pulmonary arteries for pulmonary embolus W contrast Mally 11-14-2024 1. Mild burden of nonocclusive acute bilateral pulmonary emboli unchanged. 2. Elevated RV/LV ratio may reflect right heart strain. 3. Additional chronic and/or ancillary findings detailed above. Findings communicated with ARMOND HOFFMAN via secure Epic chat by Michael Cerrato MD at 12:48 pm 11/14/2024. MACRO: None Signed by: Michael Cerrato 11/14/2024 12:51 PM Dictation workstation: [id number] Interpreted By: Michael Jensen i, STUDY: CT ANGIO CHEST FOR PULMONARY EMBOLISM; 11/14/2024 12:13 pm INDICATION: Signs/Symptoms:requested by [facility] team - known PE on CT chest with IV contrast done 2 days ago. COMPARISON: CT chest abdomen and pelvis 11/12/2024 ACCESSION NUMBER(S): [id number] ORDERING CLINICIAN: ARMOND HOFFMAN TECHNIQUE: Helical data acquisition of the chest was obtained after intravenous administration of 68 ML Omnipaque 350, as per PE protocol. Images were reformatted in coronal and sagittal planes. Axial and coronal maximum intensity projection (MIP) images were created and reviewed. FINDINGS: LOWER NECK, MEDIASTINUM /MINH, AND AXILLA: Posterior right thyroid lobe lesion with central low attenuation measuring 7 mm incompletely characterized No thoracic lymphadenopathy by CT criteria. Esophagus within normal limits. HEART AND VESSELS: Normal cardiac size. No evidence of pericardial effusion. RV/LV ratio 1.22 may reflect right heart strain. No coronary artery calcifications. The study is not optimized for evaluation of coronary arteries. Nonocclusive filling defects at the bifurcation of the distal left main pulmonary artery extending into apical upper lobe and basilar left lower lobe segmental and subsegmental pulmonary arteries. Nonocclusive filling defect within posterior basal right lower lobe segmental and subsegmental pulmonary arteries. Unchanged subcentimeter pulmonary nodules the largest a linear nodule measuring 5 mm in length. Main pulmonary artery and its branches are unremarkable in caliber. No thoracic aortic aneurysm. LUNGS AND AIRWAYS: Trachea and central airways are patent. No endobronchial lesion. Negative for pneumonia, pulmonary edema or mass. No pneumothorax or pleural effusion. Mild atelectasis and scarring. UPPER ABDOMEN: Visualized subdiaphragmatic structures demonstrate no acute abnormality. CHEST WALL AND OSSEOUS STRUCTURES: No acute osseous abnormality.Multilevel degenerative changes of the imaged spine. MMODAL CT Chest W contrast IV and C T angiogram Pulmonary arteries for pulmonary embolus W contrast IVOrdered By: Michael Cerrato on 11-14-2024 [facility] Work Phone: CT HEAD WO IV CONTRASTon CT HEAD WO IV CONTRAST Interpreted By: Nghia Banks, STUDY: CT HEAD WO IV CONTRAST; ; 11/14/2024 12:13 pm INDICATION: Signs/Symptoms:dysphagia . COMPARISON: None. ACCESSION NUMBER(S): [id number] ORDERING CLINICIAN: ARMOND HOFFMAN TECHNIQUE: Serial axial unenhanced CT images obtained of the head. Images reformatted in the coronal and sagittal projection. All CT examinations are performed with 1 or more of the following dose reduction techniques: Automated exposure control, adjustment of mA and/or kv according to patient's size, or use of iterative reconstruction techniques. FINDINGS: Ventricles, sulci, and cisterns are unremarkable. Hughes-white matter differentiation maintained. Mild periventricular white matter change nonspecific and likely related to chronic small-vessel ischemic change. No intra-axial or extra-axial blood or fluid collections are identified. Visualized osseous structures demonstrate unremarkable paranasal sinuses. Mastoid air cells demonstrate partial opacification of the bilateral maxillary sinuses. IMPRESSION: 1. No acute intracranial abnormality. 2. Mild periventricular white matter change nonspecific and likely related to chronic small-vessel ischemic change. MACRO: None Signed by: Nghia Tony 11/14/2024 12:52 PM Dictation workstation: [id number] [facility] CT Head WO contraston 2024 1. No acute intracra nial abnormality. 2. Mild periventricular white matter change nonspecific and likely related to chronic small-vessel ischemic change. MACRO: None Signed by: Nghia Tony 11/14/2024 12:52 PM Dictation workstation: [id number] MMODAL Interpreted By: Nghia Guillermo, STUDY: CT HEAD WO IV CONTRAST; ; 11/14/2024 12:13 pm INDICATION: Signs/Symptoms:dysphagia . COMPARISON: None. ACCESSION NUMBER(S): [id number] ORDERING CLINICIAN: ARMOND HOFFMAN TECHNIQUE: Serial axial unenhanced CT images obtained of the head. Images reformatted in the coronal and sagittal projection. All CT examinations are performed with 1 or more of the following dose reduction techniques: Automated exposure control, adjustment of mA and/or kv according to patient's size, or use of iterative reconstruction techniques. FINDINGS: Ventricles, sulci, and cisterns are unremarkable. Hughes-white matter differentiation maintained. Mild periventricular white matter change nonspecific and likely related to chronic small-vessel ischemic change. No intra-axial or extra-axial blood or fluid collections are identified. Visualized osseous structures demonstrate unremarkable paranasal sinuses. Mastoid air cells demonstrate partial opacification of the bilateral maxillary sinuses. [facility]AL Nghia Tony MD - 11/14/2024 Interpreted By: Nghia Tony, STUDY: CT HEAD WO IV CONTRAST; ; 11/14/2024 12:13 pm INDICATION: Signs/Symptoms:dysphagia . COMPARISON: None. ACCESSION NUMBER(S): [id number] ORDERING CLINICIAN: ARMOND HOFFMAN TECHNIQUE: Serial axial unenhanced CT images obtained of the head. Images reformatted in the coronal and sagittal projection. All CT examinations are performed with 1 or more of the following dose reduction techniques: Automated exposure control, adjustment of mA and/or kv according to patient's size, or use of iterative reconstruction techniques. FINDINGS: Ventricles, sulci, and cisterns are unremarkable. Hughes-white matter differentiation maintained. Mild periventricular white matter change nonspecific and likely related to chronic small-vessel ischemic change. No intra-axial or extra-axial blood or fluid collections are identified. Visualized osseous structures demonstrate unremarkable paranasal sinuses. Mastoid air cells demonstrate partial opacification of the bilateral maxillary sinuses. IMPRESSION: 1. No acute intracranial abnormality. 2. Mild periventricular white matter change nonspecific and likely related to chronic small-vessel ischemic change. MACRO: None Signed by: Nghia oTny 11/14/2024 12:52 PM Dictation workstation: [id number] [facility] Work Phone: CT Head WO contrastOrdered B y: Nghia Tony on 11-14-2024 [facility] Work Phone: Coagulation surface inducedo n 11-14-2024 aPTT Coag (PPP) [Time] 24 s Low 26-36 Un [facility] Comment on above: Order Comment: The A PTT is no longer used for monitoring Unfractionated Heparin Therapy. For monitoring Heparin Therapy, use the Heparin Assay. Performed By: #### 1 4979-9 #### MISSAEL LAY ([id number]) [facility] ([facility]) [address] [place], [place] [id number] Coagulation tissue factor in ducedon 11-14-2024 PT Coag (PPP) [Time] 12.5 s High 9.8-12.4 [facility] Comment on above: Performed By: #### 5 902-2 #### MISSAEL LAY ([id number]) [facility] ([facility]) [address] [place], [place] [address] Comprehensive metabolic 2000 panelon 11-14-2024 Albumin BCP dye [Mass/Vol] 3.2 g/dL Low 3.4 - 5.0 g/dL [facility] ALP [Catalytic activity/Vol] 80 U/L 33 - 136 U/L [facility] ALT With P-5'-P [Catalytic activity/Vol] 19 U/L 7 - 45 U/L [facility] Comment on above: Patients treated wit h Sulfasalazine may generate falsely decreased results for ALT. Anion gap [Moles/Vol] 13 mmol/L 10 - 2 0 mmol/L [facility] AST With P-5'-P [Catalytic activity/Vol] 22 U/L 9 - 39 U/L [facility] Bilirubin [Mass/Vol] 0.6 mg/dL 0.0 - 1 .2 mg/dL [facility] Calcium [Mass/Vol] 8.9 mg/dL 8.6 - 10. 3 mg/dL [facility] Chloride [Moles/Vol] 99 mmol/L 98 - 10 7 mmol/L [facility] CO2 [Moles/Vol] 26 mmol/L 21 - 32 mmol/L [facility] Creatinine [Mass/Vol] 0.63 mg/dL 0.50 - 1.05 mg/dL [facility] eGFR - PINF [facility] Comment on above: Calculations of ernesto mated GFR are performed using the 2020 CKD-EPI Study Refit equation without the race variable for the IDMS-Traceable creatinine methods. https://jasn.asnjournals.org/content//ASN.59822 25134 Glucose [Mass/Vol] 102 mg/dL High 74 - 99 mg/dL [facility] Interpretation and review of laboratory results Abnormal [facility] Potassium [Moles/Vol] 3.6 mmol/L 3.5 - 5.3 mmol/L [facility] Protein [Mass/Vol] 6.5 g/dL 6.4 - 8.2 g/dL [facility] Sodium [Moles/Vol] 134 mmol/L Low 136 - 145 mmol/L [facility] Urea nitrogen [Mass/Vol] 19 mg/dL 6 - 23 mg/dL [facility] Albumin BCP dye [Mass/Vol] 3.2 g/dL Low 3.4-5.0 [facility] Comment on above: Performed By: #### 5 902-2 #### MISSAEL LAY ([id number]) [facility] ([facility]) [facility] [place] [address] ALP [Catalytic activity/Vol] 80 U/L Normal 33-136 [facility] Comment on above: Performed By: #### 5 902-2 #### MISSAEL LAY ([id number]) [facility] ([facility]) [address] [place] [address] ALT With P-5'-P [Catalytic activity/Vol] 19 U/L Normal 7-45 [facility] Comment on above: Result Comment: Addie ents treated with Sulfasalazine may generate falsely decreased results for ALT. Performed By: #### 5 902-2 #### MISSAEL LAY ([id number]) [facility] ([facility]) [facility] [place] [address] Anion gap [Moles/Vol] 13 mmol/L Normal 10-20 [facility] Comment on above: Performed By: #### 5 902-2 #### MISSAEL LAY ([id number]) [facility] ([facility]) [address] [place] [address] AST With P-5'-P [Catalytic activity/Vol] 22 U/L Normal 9-39 [facility] Comment on above: Performed By: #### 5 902-2 #### MISSAEL LAY ([id number]) [facility] ([facility]) [address] [place] [address] Bilirubin [Mass/Vol] 0.6 mg/dL Normal 0.0-1.2 [facility] Comment on above: Performed By: #### 5 902-2 #### MISSAEL LAY ([id number]) [facility] ([facility]) [address] [place] [address] Calcium [Mass/Vol] 8.9 mg/dL Normal 8.6-10.3 [facility] Comment on above: Performed By: #### 5 902-2 #### MISSAEL LAY ([id number]) [facility] ([facility]) [address] [place] [address] Chloride [Moles/Vol] 99 mmol/L Normal 98-107 [facility] Comment on above: Performed By: #### 5 902-2 #### MISSAEL LAY ([id number]) [facility] ([facility]) [address] [place] [address] CO2 [Moles/Vol] 26 mmol/L Normal 21-32 [facility] Comment on above: Performed By: #### 5 902-2 #### MISSAEL LAY ([id number]) [facility] ([facility]) [address] [place] [address] Creatinine [Mass/Vol] 0.63 mg/dL Normal 0.50-1.05 [facility] Comment on above: Performed By: #### 5 902-2 #### MISSAEL LAY ([id number]) [facility] ([facility]) [address] [place] [address] Glomerular filtration rate >90 Normal >60 [facility] Comment on above: Result Comment: Calc ulations of estimated GFR are performed using the 2020 CKD-EPI Study Refit equation without the race variable for the IDMS-Traceable creatinine methods. https://jasn.asnjournals.org/content//ASN.72201 76840 Performed By: #### 5 902-2 #### MISSAEL LAY ([id number]) [facility] ([facility]) [address] [place] [address] Glucose [Mass/Vol] 102 mg/dL High 74-99 [facility] Comment on above: Performed By: #### 5 902-2 #### MISSAEL LAY ([id number]) [facility] ([facility]) [address] [place] [address] Potassium [Moles/Vol] 3.6 mmol/L Normal 3.5-5.3 [facility] Comment on above: Performed By: #### 5 902-2 #### MISSAEL LAY ([id number]) [facility] ([facility]) [address] [place] [address] Protein [Mass/Vol] 6.5 g/dL Normal 6.4-8.2 [facility] Comment on above: Performed By: #### 5 902-2 #### MISSAEL LAY ([id number]) [facility] ([facility]) [address] [place] [address] Sodium [Moles/Vol] 134 mmol/L Low 136-145 [facility] Comment on above: Performed By: #### 5 902-2 #### MISSAEL LAY ([id number]) [facility] ([facility]) [address] [place] [address] Urea nitrogen [Mass/Vol] 19 mg/dL Normal 6-23 [facility] Comment on above: Performed By: #### 5 902-2 #### MISSAEL LAY ([id number]) [facility] ([facility]) [address] [place] [address]403 D-Dimer, VTE Exclusionon Fibrin D-dimer FEU (PPP) [Mass/Vol] 1761 High NINF [facility] ECG 12-LEADon 11-14-2024 ECG 12-LEAD Ventricular Rate 100 Atrial Rate 100 P-R Interval 136 QRS Duration 72 Q-T Interval 338 QTC Calculation(Bazett) 436 P Essex 21 R Essex 1 T Essex 47 QRS Count 16 Q Onset 220 P Onset 152 P Offset 201 T Offset 389 QTC Fredericia 401 Diagnosis Sinus rhythm with Premature supraventricular complexes and Premature ventricular complexes or Fusion complexes Inferior infarct (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-2024) Possible Anterior infarct , age undetermined Abnormal ECG When compared with ECG of 02-NOV-2024 15:09, Fusion complexes are now Present Premature ventricular complexes are now Present Premature supraventricular complexes are now Present Borderline criteria for Anterior infarct are now Present ST now depressed in Anterior leads See ED provider note for full interpretation and clinical correlation Confirmed by Gertrudis Haji ([id number]) on 11/16/2024 11:22:13 AM Normal [facility] Fibrin D-dimeron 11-14-2024 Fibrin D-dimer FEU (PPP) [Mass/Vol] 1761 ng/mL FEU High <=500 [facility] Comment on above: Order Comment: The V TE Exclusion D-Dimer assay is reported in ng/mL Fibrinogen Equivalent Units (FEU).Per pheresis nurse's instructions for use, a value of less than 500 ng/mL (FEU) may help to exclude DVT or PE in outpatients when the assay is used with a clinical pretest probability assessment.(AEMR must utilize and document eCalc 'Wells Score Deep Vein Thrombosis Risk' for DVT exclusion only. Emergency Department should utilize Guidelines for Emergency Department Use of the VTE Exclusion D-Dimer and Clinical Pretest probability assessment model for DVT or PE exclusion.) Performed By: #### 5 902-2 #### CANAS ALIREZA ([id number]) [facility] ([facility]) [address] [place] [address] Fibrin D-dimer FEU (PPP) [Ma ss/Vol]on 11-14-2024 The VTE Exclusion D-Dimer assay is reported in ng/mL Fibrinogen Equivalent Units (FEU). Per pheresis nurse's instructions for use, a value of less than 500 ng/mL (FEU) may help to exclude DVT or PE in outpatients when the assay is used with a clinical pretest probability assessment.(AEMR must utilize and document eCalc 'Wells Score Deep Vein Thrombosis Risk' for DVT exclusion only. Emergency Department should utilize Guidelines for Emergency Department Use of the VTE Exclusion D-Dimer and Clinical Pretest probability assessment model for DVT or PE exclusion.) [facility] Heparin Assay, UFHon 025 Heparin unfractionated Chromogenic method Qn (PPP) 0.6 [facility] Heparin unfractionated Chromogenic method Qn (PPP) 0.6 [facility] Heparin Assay, UFHOrdered By : Asya Ng on 11-14-2024 Heparin unfractionated Chromogenic method Qn (PPP) 1.1 Critically high [facility] Heparin unfractionated Chrom ogenic method Qn (PPP)on 11-14-2024 Interpretation and review of laboratory results Normal [facility] The therapeutic reference range for UFH may be either 0.3-0.6 IU/mL or 0.3-0.7 IU/mL based on the clinical setting for anticoagulant therapy and the associated nomogram used. For Heparin dosing guidelines based on clinical scenario and Heparin Assay results, please refer to local [facility] and [facility] Guidelines for Anticoagulation Therapy available on the [facility] intranet at: [email or web address]://[email or web address]/Pharmacy/Pag es/[place]_ Guidelines_for_Anticoagu .aspx [facility] Interpretation and review of laboratory results Normal [facility] The therapeutic reference range for UFH may be either 0.3-0.6 IU/mL or 0.3-0.7 IU/mL based on the clinical setting for anticoagulant therapy and the associated nomogram used. For Heparin dosing guidelines based on clinical scenario and Heparin Assay results, please refer to local [facility] and [facility] Guidelines for Anticoagulation Therapy available on the [facility] intranet at: [email or web address]://[facility] [place].[email or web address]/Pharmacy/Pag es/[place]_ Guidelines_for_Anticoagu .aspx [facility] Heparin unfractionated Chrom ogenic method Qn (PPP)Ordered By: Asya Ng on 11-14-2024 Interpretation and review of laboratory results Abnormal [facility] The therapeutic reference range for UFH may be either 0.3-0.6 IU/mL or 0.3-0.7 IU/mL based on the clinical setting for anticoagulant therapy and the associated nomogram used. For Heparin dosing guidelines based on clinical scenario and Heparin Assay results, please refer to local Pharmacy and the [facility] Guidelines for Anticoagulation Therapy available on the [facility] intranet at: https://[facility].[email or web address]/Pharmacy/Pag es/[place]_ Guidelines_for_Anticoagu .aspx [facility] Heparin.unfractionatedon Heparin unfractionated Chromogenic method Qn (PPP) 0.6 IU/mL Normal See Comment Below for Therapeutic Ranges [facility] Comment on above: Order Comment: Obtai n 4 hours after any Heparin dosage change. Nursing to release order.The therapeutic reference range for UFH may be either 0.3-0.6 IU/mL or 0.3-0.7 IU/mL based on the clinical setting for anticoagulant therapy and the associated nomogram used. For Heparin dosing guidelines based on clinical scenario and Heparin Assay results, please refer to local Pharmacy and the [facility] Guidelines for Anticoagulation Therapy available on the [facility] intranet at: [email or web address]://[email or web address]/Pharmacy/Pages/[place]_[facility]_Guidelines_for_Anticoagu.aspx Performed By: #### 2 4323-8 #### CANAS ALIREZA ([id number]) [facility] ([facility]) [address] [place] [address] Heparin unfractionated Chromogenic method Qn (PPP) 0.6 IU/mL Normal See Comment Below for Therapeutic Ranges [facility] Comment on above: Order Comment: Obtai n 4 hours after any Heparin dosage change. Nursing to release order.The therapeutic reference range for UFH may be either 0.3-0.6 IU/mL or 0.3-0.7 IU/mL based on the clinical setting for anticoagulant therapy and the associated nomogram used. For Heparin dosing guidelines based on clinical scenario and Heparin Assay results, please refer to local Pharmacy and the [facility] Guidelines for Anticoagulation Therapy available on the [facility] intranet at: https://[email or web address]/Pharmacy/Pages/[place]_ [facility]_Guidelines_for_Anticoagu.aspx Performed By: #### 2 4323-8 #### MISSAEL LAY ([id number]) [facility] ([facility]) [address] [place], [place] [address] Heparin unfractionated Chromogenic method Qn (PPP) 1.1 IU/mL Critically high See Comment Below for Therapeutic Ranges [facility] Comment on above: Order Comment: Obtai n 4 hours after initiation of heparin infusion. Nursing to release order.The therapeutic reference range for UFH may be either 0.3-0.6 IU/mL or 0.3-0.7 IU/mL based on the clinical setting for anticoagulant therapy and the associated nomogram used. For Heparin dosing guidelines based on clinical scenario and Heparin Assay results, please refer to local Pharmacy and the [facility] Guidelines for Anticoagulation Therapy available on the [facility] intranet at: https://[email or web address]/Pharmacy/Pages/[place]_ [facility]_Guidelines_for_Anticoagu.aspx Performed By: #### 5 902-2 #### MISSAEL LAY ([id number]) [facility] ([facility]) [address] [place] [address] Lactateon 11-14-2024 Lactate [Moles/Vol] 1.0 mmol/L 0.4 - 2. 0 mmol/L [facility] Lactate [Moles/Vol] 1.0 mmol/L Normal 0.4-2.0 [facility] Comment on above: Order Comment: Venip uncture immediately after or during the administration of Metamizole may lead to falsely low results. Testing should be performed immediately prior to Metamizole dosing. Performed By: #### 5 902-2 #### MISSAEL LAY ([id number]) [facility] ([facility]) [address] [place] [address]244 Lactate [Moles/Vol]on 2024 Interpretation and review of laboratory results Normal [facility] Venipuncture immedia tely after or during the administration of Metamizole may lead to falsely low results. Testing should be performed immediately prior to Metamizole dosing. [facility] Natriuretic peptide B [Mass/ Vol]on 11-14-2024 Interpretation and review of laboratory results Normal [facility] Natriuretic peptide B (Bld) [Mass/Vol] 55 pg/mL 0 - 99 pg/mL [facility] <100 pg/mL - Heart failure unlikely 100-299 pg/mL - Intermediate probability of acute heart failure exacerbation. Correlate with clinical context and patient history. >=300 pg/mL - Heart Failure likely. Correlate with clinical context and patient history. BNP testing is performed using different testing methodology at [facility] than at other [facility]. Direct result comparisons should only be made within the same method. [facility] Natriuretic peptide B (Bld) [Mass/Vol] 55 pg/mL Normal 0-99 [facility] Comment on above: Order Comment: <100 pg/mL - Heart failure [id number] pg/mL - Intermediate probability of acute heart failure exacerbation. Correlate with clinical context and patient history. >=300 pg/mL - Heart Failure likely. Correlate with clinical context and patient history.BNP testing is performed using different testing methodology at [facility] than at [facility]. Direct result comparisons should only be made within the same method. Performed By: #### 5 902-2 #### MISSAEL LAY ([id number]) [facility] ([facility]) [address] [place] [address] No Panel Informationon 11-14 Radiology Study observation (narrative) [facility] Work Phone: Interpretation and review of laboratory results Abnormal [facility] PT Coag (PPP) [Time]on 11-14 INR Coag (PPP) [Relative time] 1.1 {INR} 0.9 - 1.1 [facility] INR Coag (PPP) [Relative time] 1.1 Normal 0.9-1.1 [facility] Comment on above: Performed By: #### 5 902-2 #### MISSAEL LAY ([id number]) [facility] ([facility]) [address] [place] [address] Protime-INRon 11-14-2024 PT Coag (PPP) [Time] 12.5 s [facility] TRANSTHORACIC ECHO (TTE) COM QUIRINOTEfelicity 11-14-2024 TRANSTHORACIC ECHO (TTE) [place] [address] [phone], TRANSTHORACIC ECHOCARDIOGRAM REPORT Patient Name: UZMA DURAN Reading Physician: [id number] Ambika Burris MD Study Date: 11/14/2024 Ordering Provider: [id number] BLANCA ROJO MRN/PID: [id number] Fellow: Nurse: Date of /Age: 10 1945 [employer] Set Up Operator: Song Borden RDCS years Gender Assigned at F Additional Staff: : Height: 149.86 cm Admit Date: Weight: 53.52 kg Admission Status: Outpatient BSA / BMI: 1.47 m2 / 23.83 Department Location: [facility] ED kg/m2 Blood Pressure: 133 /94 mmHg Study Type: TRANSTHORACIC ECHO (TTE) COMPLETE Diagnosis/ICD: Personal history of pulmonary embolism-Z86.711 CPT Codes: Echo Complete w Full Doppler-82565 Study Detail: The following Echo studies were performed: 2D, M-Mode, Doppler and color flow. PHYSICIAN INTERPRETATION: Left Ventricle: Left ventricular ejection fraction is normal by visual estimate at 65-70%. There are no regional wall motion abnormalities. The left ventricular cavity size is normal. There is mild increased septal and mildly increased posterior left ventricular wall thickness. There is left ventricular concentric remodeling. Left ventricular diastolic filling was not assessed. Left Atrium: The left atrial size is normal. Right Ventricle: The right ventricle is normal in size. There is low normal right ventricular systolic function. Right Atrium: The right atrial size is normal. Aortic Valve: The aortic valve is probably trileaflet. The aortic valve area by VTI is 2.43 cm?? with a peak velocity of 1.38 m/s. The peak and mean gradients are 6 mmHg and 4 mmHg, respectively, with a dimensionless index of 0.77. There is no evidence of aortic valve regurgitation. Mitral Valve: The mitral valve is normal in structure. There is trace mitral valve regurgitation. The E Vmax is 0.76 m/s. Tricuspid Valve: The tricuspid valve is structurally normal. There is mild tricuspid regurgitation. The Doppler estimated right ventricular systolic pressure (RVSP) is within normal limits at 28 mmHg. Pulmonic Valve: The pulmonic valve is not well visualized. The pulmonic valve regurgitation was not assessed. Pericardium: No pericardial effusion noted. Aorta: The aortic root is normal. Systemic Veins: The inferior vena cava appears normal in size, with IVC inspiratory collapse greater than 50%. CONCLUSIONS: 1. Left ventricular ejection fraction is normal by visual estimate at 65-70%. 2. There is low normal right ventricular systolic function. 3. The Doppler estimated RVSP is within normal limits at 28 mmHg. QUANTITATIVE DATA SUMMARY: 2D MEASUREMENTS: Normal Ranges: Ao Root d: 3.00 cm (2.0-3.7cm) LAs: 2.50 cm (2.7-4.0cm) IVSd: 0.98 cm (0.6-1.1cm) LVPWd: 1.06 cm (0.6-1.1cm) LVIDd: 3.64 cm (3.9-5.9cm) LVIDs: 2.21 cm LV Mass Index: 76.9 g/m2 LVEDV Index: 27.85 ml/m2 LV % FS 39.3 % LEFT ATRIUM: Normal Ranges: LA Vol A4C: 8.4 ml (22+/-6mL/m2) LA Vol A2C: 13.9 ml LA Vol BP: 11.4 ml LA Vol Index A4C: 5.7ml/m2 LA Vol Index A2C: 9.5 ml/m2 LA Vol Index BP: 7.8 ml/m2 LA Area A4C: 5.7 cm2 LA Area A2C: 7.8 cm2 LA Major Essex A4C: 3.3 cm LA Major Essex A2C: 3.7 cm LA Volume Index: 5.6 ml/m2 LA Vol A4C: 8.2 ml LA Vol A2C: 13.9 ml LA Vol Index BSA: 7.5 ml/m2 AORTA MEASUREMENTS: Normal Ranges: Asc Ao, d: 2.70 cm (2.1-3.4cm) LV SYSTOLIC FUNCTION: Normal Ranges: EF-A4C View: 60 % (>=55%) EF-A2C View: 60 % EF-Biplane: 60 % EF-Visual: 68 % LV EF Reported: 68 % LV DIASTOLIC FUNCTION: Normal Ranges: MV Peak E: 0.76 m/s (0.7-1.2 m/s) MV Peak A: 1.10 m/s (0.42-0.7 m/s) E/A Ratio: 0.69 (1.0-2.2) MITRAL VALVE: Normal Ranges: MV DT: 166 msec (150-240msec) AORTIC VALVE: Normal Ranges: AoV Vmax: 1.38 m/s (<=1.7m/s) AoV Peak P.6 mmHg (<20mmHg) AoV Mean P.0 mmHg (1.7-11.5mmHg) LVOT Max Fan: 1.14 m/s (<=1.1m/s) AoV VTI: 25.00 cm (18-25cm) LVOT VTI: 19.30 cm LVOT Diameter: 2.00 cm (1.8-2.4cm) AoV Area, VTI: 2.43 cm2 (2.5-5.5cm2) AoV Area,Vmax: 2.60 cm2 (2.5-4.5cm2) AoV Dimensionless Index: 0.77 RIGHT VENTRICLE: RV Basal 3.02 cm RV Mid 2.81 cm RV Major 6.4 cm TAPSE: 15.4 mm RV s' 0.16 m/s TRICUSPID VALVE/RVSP: Normal Ranges: Peak TR Velocity: 2.49 m/s Est. RA Pressure: 3 mmHg RV Syst Pressure: 28 mmHg (< 30mmHg) IVC Diam: 1.60 cm [id number] Ambika Burris MD Electronically signed on 11/14/2024 at 3:25:42 PM Final CONCLUSIONS: 1. Left ventricular ejection fraction is normal by visual estimate at 65-70%. 2. There is low normal right ventricular systolic function. 3. The Doppler estimated RVSP is within normal limits at 28 mmHg. Normal [facility] Tropinin I.cardiac panel Hig h sensitivity methodon 11-14-2024 Interpretation and review of laboratory results Normal [facility] Less than 99th percentile of normal range cutoff- Female and children under 18 years old <14 ng/L; Male <21 ng/L: Negative Repeat testing should be performed if clinically indicated. Female and children under 18 years old 14-50 ng/L; Male 21-50 ng/L: Consistent with possible cardiac damage and possible increased clinical risk. Serial measurements may help to assess extent of myocardial damage. >50 ng/L: Consistent with cardiac damage, increased clinical risk and myocardial infarction. Serial measurements may help assess extent of myocardial damage. NOTE: Children less than 1 year old may have higher baseline troponin levels and results should be interpreted in conjunction with the overall clinical context. NOTE: Troponin I testing is performed using a different testing methodology at [facility] than at other [facility]. Direct result comparisons should only be made within the same method. [facility] Interpretation and review of laboratory results Normal [facility] Less than 99th percentile of normal range cutoff- Female and children under 18 years old <14 ng/L; Male <21 ng/L: Negative Repeat testing should be performed if clinically indicated. Female and children under 18 years old 14-50 ng/L; Male 21-50 ng/L: Consistent with possible cardiac damage and possible increased clinical risk. Serial measurements may help to assess extent of myocardial damage. >50 ng/L: Consistent with cardiac damage, increased clinical risk and myocardial infarction. Serial measurements may help assess extent of myocardial damage. NOTE: Children less than 1 year old may have higher baseline troponin levels and results should be interpreted in conjunction with the overall clinical context. NOTE: Troponin I testing is performed using a different testing methodology at [facility] than at other [facility]. Direct result comparisons should only be made within the same method. [facility] Troponin I, High Sensitivity on 11-14-2024 Tropinin I.cardiac panel High sensitivity method 9 ng/L 0 - 13 ng/L [facility] Tropinin I.cardiac panel High sensitivity method 9 ng/L 0 - 13 ng/L [facility] Troponin I.cardiac panelon 0 11-14-2024 Tropinin I.cardiac panel High sensitivity method 9 ng/L Normal 0-13 [facility] Comment on above: Order Comment: Less than 99th percentile of normal range cutoff-Female and children under 18 years old <14 ng/L; Male <21 ng/L: NegativeRepeat testing should be performed if clinically indicated.Female and children under 18 years old 14-50 ng/L; Male 21-50 ng/L:Consistent with possible cardiac damage and possible increased clinicalrisk. Serial measurements may help to assess extent of myocardial damage.>50 ng/L: Consistent with cardiac damage, increased clinical risk andmyocardial infarction. Serial measurements may help assess extent ofmyocardial damage.NOTE: Children less than 1 year old may have higher baseline troponinlevels and results should be interpreted in conjunction with the overallclinical context.NOTE: Troponin I testing is performed using a differenttesting methodology at [facility] than at [facility]. Direct result comparisons should onlybe made within the same method. Performed By: #### 5 902-2 #### MISSAEL LAY ([id number]) [facility] ([facility]) [facility] [place] [address] Tropinin I.cardiac panel High sensitivity method 9 ng/L Normal 0-13 [facility] Comment on above: Order Comment: Less than 99th percentile of normal range cutoff-Female and children under 18 years old <14 ng/L; Male <21 ng/L: NegativeRepeat testing should be performed if clinically indicated.Female and children under 18 years old 14-50 ng/L; Male 21-50 ng/L:Consistent with possible cardiac damage and possible increased clinicalrisk. Serial measurements may help to assess extent of myocardial damage.>50 ng/L: Consistent with cardiac damage, increased clinical risk andmyocardial infarction. Serial measurements may help assess extent ofmyocardial damage.NOTE: Children less than 1 year old may have higher baseline troponinlevels and results should be interpreted in conjunction with the overallclinical context.NOTE: Troponin I testing is performed using a differenttesting methodology at [facility] than at [facility]. Direct result comparisons should onlybe made within the same method. Performed By: #### 5 902-2 #### MISSAEL LAY ([id number]) [facility] ([facility]) [facility] [place] [id number] US Heart TransthoracicOrdere d By: Ambika Burris on 11-14-2024 Aortic Valve Area by Continuity of Peak Velocity 2.60 cm2 [facility] Work Phone: Aortic Valve Area by Continuity of VTI 2.43 cm2 [facility] Work Phone: AV mn grad 4 mmHg [facility] Work Phone: [phone] AV pk grad 8 mmHg [facility] Work Phone: [phone] AV pk fan 1.38 m/s [facility] Work Phone: [phone] LA vol index A/L 7.8 ml/m2 [facility] Work Phone: [phone] LV A4C EF 60.1 [facility] Work Phone: [phone] LV Biplane EF 60 % [facility] Work Phone: [phone] LV EF 68 % [facility] Work Phone: [phone] LVIDd 3.64 cm [facility] Work Phone: [phone] LVOT diam 2.00 cm [facility] Work Phone: [phone] MV E/A ratio 0.69 [facility] Work Phone: [phone] RV free wall pk S' 15.90 cm/s [facility] Work Phone: [phone] RVSP 28 mmHg [facility] Work Phone: [phone] Tricuspid annular plane systolic excursion 1.5 cm [facility] Work Phone: [phone] [facility] Work Phone: [phone] US Heart Transthoracicon CONCLUSIONS: 1. Left ventricular ejection fraction is normal by visual estimate at 65-70%. 2. There is low normal right ventricular systolic function. 3. The Doppler estimated RVSP is within normal limits at 28 [place] [address] [phone], TRANSTHORACIC ECHOCARDIOGRAM REPORT Patient Name: UZMA Morales Physician: [id number] Ambika Burris MD Study Date: 11/14/2024 Ordering Provider: [id number] BLANCA ROJO MRN/PID: [id number] Fellow: Nurse: Date of /Age: 10 1945 [employer] Set Up Operator: Song Borden RDCS years Gender Assigned at F Additional Staff: : Height: 149.86 cm Admit Date: Weight: 53.52 kg Admission Status: Outpatient BSA / BMI: 1.47 m2 / 23.83 Department Location: [facility] ED kg/m2 Blood Pressure: 133 /94 mmHg Study Type: TRANSTHORACIC ECHO (TTE) COMPLETE Diagnosis/ICD: Personal history of pulmonary embolism-Z86.711 CPT Codes: Echo Complete w Full Doppler-[id number] Study Detail: The following Echo studies were performed: 2D, M-Mode, Doppler and color flow. PHYSICIAN INTERPRETATION: Left Ventricle: Left ventricular ejection fraction is normal by visual estimate at 65-70%. There are no regional wall motion abnormalities. The left ventricular cavity size is normal. There is mild increased septal and mildly increased posterior left ventricular wall thickness. There is left ventricular concentric remodeling. Left ventricular diastolic filling was not assessed. Left Atrium: The left atrial size is normal. Right Ventricle: The right ventricle is normal in size. There is low normal right ventricular systolic function. Right Atrium: The right atrial size is normal. Aortic Valve: The aortic valve is probably trileaflet. The aortic valve area by VTI is 2.43 cm with a peak velocity of 1.38 m/s. The peak and mean gradients are 6 mmHg and 4 mmHg, respectively, with a dimensionless index of 0.77. There is no evidence of aortic valve regurgitation. Mitral Valve: The mitral valve is normal in structure. There is trace mitral valve regurgitation. The E Vmax is 0.76 m/s. Tricuspid Valve: The tricuspid valve is structurally normal. There is mild tricuspid regurgitation. The Doppler estimated right ventricular systolic pressure (RVSP) is within normal limits at 28 mmHg. Pulmonic Valve: The pulmonic valve is not well visualized. The pulmonic valve regurgitation was not assessed. Pericardium: No pericardial effusion noted. Aorta: The aortic root is normal. Systemic Veins: The inferior vena cava appears normal in size, with IVC inspiratory collapse greater than 50%. CONCLUSIONS: 1. Left ventricular ejection fraction is normal by visual estimate at 65-70%. 2. There is low normal right ventricular systolic function. 3. The Doppler estimated RVSP is within normal limits at 28 mmHg. QUANTITATIVE DATA SUMMARY: 2D MEASUREMENTS: Normal Ranges: Ao Root d: 3.00 cm (2.0-3.7cm) LAs: 2.50 cm (2.7-4.0cm) IVSd: 0.98 cm (0.6-1.1cm) LVPWd: 1.06 cm (0.6-1.1cm) LVIDd: 3.64 cm (3.9-5.9cm) LVIDs: 2.21 cm LV Mass Index: 76.9 g/m2 LVEDV Index: 27.85 ml/m2 LV % FS 39.3 % LEFT ATRIUM: Normal Ranges: LA Vol A4C: 8.4 ml (22+/-6mL/m2) LA Vol A2C: 13.9 ml LA Vol BP: 11.4 ml LA Vol Index A4C: 5.7ml/m2 LA Vol Index A2C: 9.5 ml/m2 LA Vol Index BP: 7.8 ml/m2 LA Area A4C: 5.7 cm2 LA Area A2C: 7.8 cm2 LA Major Essex A4C: 3.3 cm LA Major Essex A2C: 3.7 cm LA Volume Index: 5.6 ml/m2 LA Vol A4C: 8.2 ml LA Vol A2C: 13.9 ml LA Vol Index BSA: 7.5 ml/m2 AORTA MEASUREMENTS: Normal Ranges: Asc Ao, d: 2.70 cm (2.1-3.4cm) LV SYSTOLIC FUNCTION: Normal Ranges: EF-A4C View: 60 % (>=55%) EF-A2C View: 60 % EF-Biplane: 60 % EF-Visual: 68 % LV EF Reported: 68 % LV DIASTOLIC FUNCTION: Normal Ranges: MV Peak E: 0.76 m/s (0.7-1.2 m/s) MV Peak A: 1.10 m/s (0.42-0.7 m/s) E/A Ratio: 0.69 (1.0-2.2) MITRAL VALVE: Normal Ranges: MV DT: 166 msec (150-240msec) AORTIC VALVE: Normal Ranges: AoV Vmax: 1.38 m/s (<=1.7m/s) AoV Peak P.6 mmHg (<20mmHg) AoV Mean P.0 mmHg (1.7-11.5mmHg) LVOT Max Fan: 1.14 m/s (<=1.1m/s) AoV VTI: 25.00 cm (18-25cm) LVOT VTI: 19.30 cm LVOT Diameter: 2.00 cm (1.8-2.4cm) AoV Area, VTI: 2.43 cm2 (2.5-5.5cm2) AoV Area,Vmax: 2.60 cm2 (2.5-4.5cm2) AoV Dimensionless I (more content not included)... Ambika Michaud MD - 11/14/2024 [place] [address] [phone], TRANSTHORACIC ECHOCARDIOGRAM REPORT Patient Name: UZMA Montero RENEE Reading Physician: [id number] Ambika Burris MD Study Date: 11/14/2024 Ordering Provider: [id number] BLANCA ROJO MRN/PID: [id number] Fellow: Nurse: Date of /Age: 11 1945 [employer] Set Up Operator: Song Borden RDCS years Gender Assigned at F Additional Staff: : Height: 149.86 cm Admit Date: Weight: 53.52 kg Admission Status: Outpatient BSA / BMI: 1.47 m2 / 23.83 Department Location: [facility] ED kg/m2 Blood Pressure: 133 /94 mmHg Study Type: TRANSTHORACIC ECHO (TTE) COMPLETE Diagnosis/ICD: Personal history of pulmonary embolism-Z86.711 CPT Codes: Echo Complete w Full Doppler-[id number] Study Detail: The following Echo studies were performed: 2D, M-Mode, Doppler and color flow. PHYSICIAN INTERPRETATION: Left Ventricle: Left ventricular ejection fraction is normal by visual estimate at 65-70%. There are no regional wall motion abnormalities. The left ventricular cavity size is normal. There is mild increased septal and mildly increased posterior left ventricular wall thickness. There is left ventricular concentric remodeling. Left ventricular diastolic filling was not assessed. Left Atrium: The left atrial size is normal. Right Ventricle: The right ventricle is normal in size. There is low normal right ventricular systolic function. Right Atrium: The right atrial size is normal. Aortic Valve: The aortic valve is probably trileaflet. The aortic valve area by VTI is 2.43 cm with a peak velocity of 1.38 m/s. The peak and mean gradients are 6 mmHg and 4 mmHg, respectively, with a dimensionless index of 0.77. There is no evidence of aortic valve regurgitation. Mitral Valve: The mitral valve is normal in structure. There is trace mitral valve regurgitation. The E Vmax is 0.76 m/s. Tricuspid Valve: The tricuspid valve is structurally normal. There is mild tricuspid regurgitation. The Doppler estimated right ventricular systolic pressure (RVSP) is within normal limits at 28 mmHg. Pulmonic Valve: The pulmonic valve is not well visualized. The pulmonic valve regurgitation was not assessed. Pericardium: No pericardial effusion noted. Aorta: The aortic root is normal. Systemic Veins: The inferior vena cava appears normal in size, with IVC inspiratory collapse greater than 50%. CONCLUSIONS: 1. Left ventricular ejection fraction is normal by visual estimate at 65-70%. 2. There is low normal right ventricular systolic function. 3. The Doppler estimated RVSP is within normal limits at 28 mmHg. QUANTITATIVE DATA SUMMARY: 2D MEASUREMENTS: Normal Ranges: Ao Root d: 3.00 cm (2.0-3.7cm) LAs: 2.50 cm (2.7-4.0cm) IVSd: 0.98 cm (0.6-1.1cm) LVPWd: 1.06 cm (0.6-1.1cm) LVIDd: 3.64 cm (3.9-5.9cm) LVIDs: 2.21 cm LV Mass Index: 76.9 g/m2 LVEDV Index: 27.85 ml/m2 LV % FS 39.3 % LEFT ATRIUM: Normal Ranges: LA Vol A4C: 8.4 ml (22+/-6mL/m2) LA Vol A2C: 13.9 ml LA Vol BP: 11.4 ml LA Vol Index A4C: 5.7ml/m2 LA Vol Index A2C: 9.5 ml/m2 LA Vol Index BP: 7.8 ml/m2 LA Area A4C: 5.7 cm2 LA Area A2C: 7.8 cm2 LA Major Essex A4C: 3.3 cm LA Major Essex A2C: 3.7 cm LA Volume Index: 5.6 ml/m2 LA Vol A4C: 8.2 ml LA Vol A2C: 13.9 ml LA Vol Index BSA: 7.5 ml/m2 AORTA MEASUREMENTS: Normal Ranges: Asc Ao, d: 2.70 cm (2.1-3.4cm) LV SYSTOLIC FUNCTION: Normal Ranges: EF-A4C View: 60 % (>=55%) EF-A2C View: 60 % EF-Biplane: 60 % EF-Visual: 68 % LV EF Reported: 68 % LV DIASTOLIC FUNCTION: Normal Ranges: MV Peak E: 0.76 m/s (0.7-1.2 m/s) MV Peak A: 1.10 m/s (0.42-0.7 m/s) E/A Ratio: 0.69 (1.0-2.2) MITRAL VALVE: Normal Ranges: MV DT: 166 msec (150-240msec) AORTIC VALVE: Normal Ranges: AoV Vmax: 1.38 m/s (<=1.7m/s) AoV Peak P.6 mmHg (<20mmHg) AoV Mean P.0 mmHg (1.7-11.5mmHg) LVOT Max Fan: 1.14 m/s (<=1.1m/s) AoV VTI: 25.00 cm (18-25cm) LVOT VTI: 19.30 cm LVOT Diameter: 2.00 cm (1.8-2.4cm) AoV Area, VTI: 2.43 cm2 (2.5-5.5cm2) AoV Area,Vmax: 2.60 cm2 (2.5-4.5cm2) AoV Dimensionless Index: 0.77 RIGHT VENTRICLE: RV Basal 3.02 cm RV Mid 2.81 cm RV Major 6.4 cm TAPSE: 15.4 mm RV s' 0.16 m/s TRICUSPID VALVE/RVSP: Normal Ranges: Peak TR Velocity: 2.49 m/s Est. RA Pressure: 3 mmHg RV Syst Pressure: 28 mmHg (< 30mmHg) IVC Diam: 1.60 cm [id number] Ambika Burris MD Electronically signed on 11/14/2024 at 3:25:42 PM Final IMPRESSION: CONCLUSIONS: 1. Left ventricular ejection fraction is normal by visual estimate at 65-70%. 2. There is low normal right ventricular systolic function. 3. The Doppler estimated RVSP is within normal limits at 28 mmHg. [facility] Work Phone: US.doppler Lower extremity v ein - bilateralon 11-14-2024 Radiology Study observation (narrative) [facility] Work Phone: VASC US LOWER EXTREMITY VENO US DUPLEX BILATERALon 11-14-2024 VAS US LOWER EXTREMITY VENOUS [place] [address] [phone], Vascular Lab Report [facility] US LOWER EXTREMITY VENOUS DUPLEX BILATERAL Patient Name: UZMA Montero RENEE Reading Physician: [id number] Shannan Bolaños MD Study Date: 11/14/2024 Ordering Provider: [id number] ARMOND HOFFMAN MRN/PID: [id number] Fellow: Technologist: Morales [place] RVT Date of /Age: 11 1945 Technologist 2: years Gender: F Admission Status: Emergency Location Performed: [facility] Diagnosis/ICD: Shortness of breath-R06.02 CPT Codes: 73422 Peripheral venous duplex scan for DVT complete Pertinent History: Leg pain and PE. CRITICAL RESULT Critical Result: Left leg DVT Notification called to Dr Armond Hoffman on 11/14/2024 at 11:07:53 AM. Acknowledged critical results notification communicated via at bedside by Wero [place] RVT. 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 Right Lower Venous: No evidence of acute deep vein thrombus visualized in the right lower extremity. Additional Findings; Cystic Structure noted in the popliteal fossa measuring 4.1 x 2.3 x 1.1 cm. Left Lower Venous: There is acute occlusive deep vein thrombosis visualized in the posterior tibial, peroneal and soleal veins. There is acute non-occlusive deep vein thrombosis visualized in the popliteal vein. The remainder of the left leg is negative for deep vein thrombosis. Imaging & Doppler Findings: Right Compressible Thrombus Flow Distal External Iliac Spontaneous/Phasic CFV Yes None Spontaneous/Phasic PFV Yes None FV Proximal Yes None Spontaneous/Phasic FV Mid Yes None FV Distal Yes None Popliteal Yes None Reflux Peroneal Yes None PTV Yes None Left Compress Thrombus Flow Distal External Iliac Spontaneous/Phasic CFV Yes None Spontaneous/Phasic PFV Yes None FV Proximal Yes None Spontaneous/Phasic FV Mid Yes None FV Distal Yes None Popliteal Partial Acute non-occlusive Spontaneous/Phasic Peroneal No Acute occlusive PTV No Acute occlusive Soleal No Acute occlusive [id number] Shannan Bolaños MD Final CONCLUSIONS: Right Lower Venous Insufficiency: There is reflux noted in the popliteal vein. Right Lower Venous: No evidence of acute deep vein thrombus visualized in the right lower extremity. Additional Findings; Cystic Structure noted in the popliteal fossa measuring 4.1 x 2.3 x 1.1 cm. Left Lower Venous: There is acute occlusive deep vein thrombosis visualized in the posterior tibial, peroneal and soleal veins. There is acute non-occlusive deep vein thrombosis visualized in the popliteal vein. The remainder of the left leg is negative for deep vein thrombosis. Normal [facility] aPTT Coag (PPP) [Time]on The APTT is no longe r used for monitoring Unfractionated Heparin Therapy. For monitoring Heparin Therapy, use the Heparin Assay. [facility] CT CHEST ABDOMEN PELVIS W IV CONTRASTon 11-12-2024 CT CHEST ABDOMEN PELVIS W IV CONTRAST Interpreted By: Jeanmarie Carvalho and Bera Kaustav STUDY: CT CHEST ABDOMEN PELVIS W IV CONTRAST; 11/12/2024 1:32 pm INDICATION: Signs/Symptoms:dx. COMPARISON: Ultrasound ultrasound of the thyroid on 03/01/2023 ACCESSION NUMBER(S): [id number] ORDERING CLINICIAN: CYNDI HORN TECHNIQUE: Contiguous axial images of the chest, abdomen, and pelvis were obtained. Coronal and sagittal reformatted images were reconstructed from the axial data. 72 ML of Omnipaque 350 was administered intravenously without immediate complication. FINDINGS: CT CHEST: MEDIASTINUM AND LYMPH NODES: Multiple prominent mediastinal and axillary lymph nodes, however not enlarged by CT criteria. No pneumomediastinum. There is mild circumferential wall thickening of the esophagus, especially at the GE junction. VESSELS: Normal caliber aorta without dissection. No aortic atherosclerosis. Partially occlusive filling defects are seen within the right lower lobe segmental and subsegmental pulmonary arteries (series 3, image 52), and distal left main pulmonary artery (series 3, image 35 and segmental left lower lobe pulmonary arteries (series 2, image 38). HEART: Normal size. Moderate coronary artery calcifications. No significant pericardial effusion. LUNG, AIRWAYS, PLEURA: The trachea and central airways are patent. No endobronchial lesions. 0.6 cm linear right lower lobe pulmonary nodule (series 4, image 80). 0.3 cm right lower lobe pulmonary nodule (series 4, image 89). Mild scarring/atelectasis seen within the left lingula. Bibasilar subpleural reticulation. No consolidation, pulmonary edema, pleural effusion or pneumothorax. CHEST WALL SOFT TISSUES: No discernible abnormality. Mildly enlarged right thyroid lobe, which was better evaluated on recent ultrasound. OSSEOUS STRUCTURES: No acute osseous abnormality. CT ABDOMEN/PELVIS: ABDOMINAL WALL: No significant abnormality. LIVER: The liver is normal in size, with normal homogeneous attenuation. No focal liver lesions are noted. BILE DUCTS: No significant intrahepatic or extrahepatic dilatation. GALLBLADDER: No significant abnormality. PANCREAS: Slightly prominent appearance of the main pancreatic duct, otherwise unremarkable, without abrupt tapering or cut off. Normal enhancement of the pancreatic parenchyma. SPLEEN: No significant abnormality. ADRENALS: No significant abnormality. KIDNEYS, URETERS, BLADDER: Kidneys are mildly lobulated appearance, otherwise unremarkable. Bilateral patulous appearing collecting systems, without definite hydroureteronephrosis or nephroureterolithiasis. The urinary bladder is unremarkable for the degree of distension. REPRODUCTIVE ORGANS: Status post hysterectomy. VESSELS: Severe atherosclerotic calcification of the abdominal aorta and branching vessels without aneurysmal dilatation. The IVC is unremarkable. Limited evaluation of the iliac and femoral veins due to contrast timing, however no definite internal hypodensities to suggest venous thrombosis. Main portal vein is unremarkable. RETROPERITONEUM/LYMPH NODES: Few prominent upper abdominal lymph nodes, however not enlarged by CT criteria. BOWEL/MESENTERY/PERITONE UM: The stomach is decompressed and limited for evaluation. No inflammatory bowel wall thickening or dilatation. Moderate rectal and colonic stool burden. Fluid-filled loops of small bowel, especially within the pelvis. Normal appendix. No ascites, free air, or fluid collection. MUSCULOSKELETAL: No acute osseous abnormality. Moderate degenerative changes of the thoracolumbar spine, most prominent at L4-5. Grade 1 anterolisthesis of L4 on L5. No suspicious osseous lesions. IMPRESSION: 1. Partially occlusive pulmonary emboli seen within the distal left main pulmonary artery, segmental and subsegmental left lower lobe and right lower lobe pulmonary artery, as described above (series 2, image 35, 38, 52). No definite thrombus seen within the iliac and superficial femoral veins, although limited due to contrast timing. Recommend follow-up with duplex ultrasound of the lower extremities. 2. Few pulmonary nodules measuring up to 0.6 cm within the right lower lobe. No follow-up is required. 3. No definite for patient's weight loss is seen on this examination. If weight loss persists, recommend follow-up with PET-CT. 4. Mild circumferential wall thickening of the esophagus and gastroesophageal junction, is nonspecific. Recommend correlation with symptoms for esophagitis/reflux. 5. Fluid-filled loops of small bowel especially within the pelvis. Correlate with concern for diarrhea/enteritis. I personally reviewed the images/study and I agree with the findings of Financial Aid Advisor Zoya Rodriguez as stated. This study was interpreted at [facility], [place], [place]. MACRO: Zoya Zhou (more content not included)... Normal [facility] CBC W Auto Differential pane l (Bld)on 11-02-2024 Basophils (Bld) [#/Vol] 0.04 10*3/uL [facility] Basophils/100 WBC (Bld) 0.3 % 0.0 - 2.0 % [facility] Eosinophils (Bld) [#/Vol] 0.07 10*3/uL [facility] Eosinophils/100 WBC (Bld) 0.5 % 0.0 - 6.0 % [facility] Erythrocyte distribution width (RBC) [Ratio] 13.5 % 11.5 - 14.5 % [facility] Hematocrit (Bld) [Volume fraction] 38.9 % 36.0 - 46.0 % [facility] Hemoglobin (Bld) [Mass/Vol] 13.2 g/dL 12.0 - 16.0 g/dL [facility] Immature granulocytes (Bld) [#/Vol] 0.14 10*3/uL [facility] Immature granulocytes/100 WBC (Bld) 1.1 % High 0.0 - 0.9 % [facility] Comment on above: Immature Granulocyte Count (IG) includes promyelocytes, myelocytes and metamyelocytes but does not include bands. Percent differential counts (%) should be interpreted in the context of the absolute cell counts (cells/UL). Interpretation and review of laboratory results Abnormal [facility] Lymphocytes (Bld) [#/Vol] 1.02 10*3/uL [facility] Lymphocytes/100 WBC (Bld) 7.9 % 13.0 - 44.0 % [facility] MCH (RBC) [Entitic mass] 32.0 pg 26.0 - 34.0 pg [facility] MCHC (RBC) [Mass/Vol] 33.9 g/dL 32.0 - 36.0 g/dL [facility] MCV (RBC) [Entitic vol] 94 fL 80 - 100 fL [facility] Monocytes (Bld) [#/Vol] 0.81 10*3/uL [facility] Monocytes/100 WBC (Bld) 6.3 % 2.0 - 10.0 % [facility] Neutrophils (Bld) [#/Vol] 10.87 10*3/uL High [facility] Comment on above: Percent differential counts (%) should be interpreted in the context of the absolute cell counts (cells/uL). Neutrophils/100 WBC (Bld) 83.9 % 40.0 - 80.0 % [facility] Nucleated RBC/100 WBC (Bld) [Ratio] 0.0 % [facility] Platelets (Bld) [#/Vol] 349 10*3/uL [facility] RBC (Bld) [#/Vol] 4.12 10*6/uL [facility] WBC (Bld) [#/Vol] 13.0 10*3/uL High [facility] Basophils (Bld) [#/Vol] 0.04 x10*3/uL Normal 0.00-0.10 [facility] Comment on above: Performed By: #### 5 7021-8 #### MISSAEL LAY ([id number]) [facility] ([facility]) [address] [place] [address] Basophils/100 WBC (Bld) 0.3 % Normal 0.0-2.0 [facility] Comment on above: Performed By: #### 5 7021-8 #### MISSAEL LAY ([id number]) [facility] ([facility]) [address] [place] [address] 13577 Eosinophils (Bld) [#/Vol] 0.07 x10*3/uL Normal 0.00-0.40 [facility] Comment on above: Performed By: #### 5 7021-8 #### MISSAEL LAY ([id number]) [facility] ([facility]) [address] [place] [address] 91618 Eosinophils/100 WBC (Bld) 0.5 % Normal 0.0-6.0 [facility] Comment on above: Performed By: #### 5 7021-8 #### MISSAEL LAY ([id number]) [facility] ([facility]) [address] [place] [address] 47703 Erythrocyte distribution width (RBC) [Ratio] 13.5 % Normal 11.5-14.5 [facility] Comment on above: Performed By: #### 5 7021-8 #### MISSAEL LAY ([id number]) [facility] ([facility]) [address] [place] [address] 82494 Hematocrit (Bld) [Volume fraction] 38.9 % Normal 36.0-46.0 [facility] Comment on above: Performed By: #### 5 7021-8 #### MISSAEL LAY ([id number]) [facility] ([facility]) [address] [place] [address] 90875 Hemoglobin (Bld) [Mass/Vol] 13.2 g/dL Normal 12.0-16.0 [facility] Comment on above: Performed By: #### 5 7021-8 #### MISSAEL LAY ([id number]) [facility] ([facility]) [address] [place] [address]79 Immature granulocytes (Bld) [#/Vol] 0.14 x10*3/uL Normal 0.00-0.50 [facility] Comment on above: Performed By: #### 5 7021-8 #### MISSAEL LAY ([id number]) [facility] ([facility]) [address] [place] [address] 80557 Immature granulocytes/100 WBC (Bld) 1.1 % High 0.0-0.9 [facility] Comment on above: Result Comment: Shiela ture Granulocyte Count (IG) includes promyelocytes, myelocytes and metamyelocytes but does not include bands. Percent differential counts (%) should be interpreted in the context of the absolute cell counts (cells/UL). Performed By: #### 5 7021-8 #### MISSAEL LAY ([id number]) [facility] ([facility]) [address] [place], [place] [address] Lymphocytes (Bld) [#/Vol] 1.02 x10*3/uL Normal 0.80-3.00 [facility] Comment on above: Performed By: #### 5 7021-8 #### MISSAEL LAY ([id number]) [facility] ([facility]) [address] [place] [address] 53351 Lymphocytes/100 WBC (Bld) 7.9 % Normal 13.0-44.0 [facility] Comment on above: Performed By: #### 5 7021-8 #### MISSAEL LAY ([id number]) [facility] ([facility]) [address] [place] [address] 90115 MCH (RBC) [Entitic mass] 32.0 pg Normal 26.0-34.0 [facility] Comment on above: Performed By: #### 5 7021-8 #### MISSAEL LAY ([id number]) [facility] ([facility]) [address] [place] [address] 08282 MCHC (RBC) [Mass/Vol] 33.9 g/dL Normal 32.0-36.0 [facility] Comment on above: Performed By: #### 5 7021-8 #### MISSAEL LAY ([id number]) [facility] ([facility]) [address] [place] [address] 12567 MCV (RBC) [Entitic vol] 94 fL Normal 80-100 [facility] Comment on above: Performed By: #### 5 7021-8 #### MISSAEL LAY ([id number]) [facility] ([facility]) [address] [place] [address] Monocytes (Bld) [#/Vol] 0.81 x10*3/uL High 0.05-0.80 [facility] Comment on above: Performed By: #### 5 7021-8 #### MISSAEL LAY ([id number]) [facility] ([facility]) [address] [place] [address] 43883 Monocytes/100 WBC (Bld) 6.3 % Normal 2.0-10.0 [facility] Comment on above: Performed By: #### 5 7021-8 #### MISSAEL LAY ([id number]) [facility] ([facility]) [address] [place] [address] 90381 Neutrophils (Bld) [#/Vol] 10.87 x10*3/uL High 1.60-5.50 [facility] Comment on above: Result Comment: Perc ent differential counts (%) should be interpreted in the context of the absolute cell counts (cells/uL). Performed By: #### 5 7021-8 #### MISSAEL LAY ([id number]) [facility] ([facility]) [address] [place] [address] 44941 Neutrophils/100 WBC (Bld) 83.9 % Normal 40.0-80.0 [facility] Comment on above: Performed By: #### 5 7021-8 #### MISSAEL LAY ([id number]) [facility] ([facility]) [address] [place] [address] 74285 Nucleated RBC/100 WBC (Bld) [Ratio] 0.0 /100 WBCs Normal 0.0-0.0 [facility] Comment on above: Performed By: #### 5 7021-8 #### MISSAEL LAY ([id number]) [facility] ([facility]) [address] [place] [address] 78779 Platelets (Bld) [#/Vol] 349 x10*3/uL Normal 150-450 [facility] Comment on above: Performed By: #### 5 7021-8 #### MISSAEL LAY ([id number]) [facility] ([facility]) [address] [place] [address] RBC (Bld) [#/Vol] 4.12 x10*6/uL Normal 4.00-5.20 [facility] Comment on above: Performed By: #### 5 7021-8 #### CANAS CLAUDIADEBRA ([id number]) [facility] ([facility]) [address] [place] [address] WBC (Bld) [#/Vol] 13.0 x10*3/uL High 4.4-11.3 [facility] Comment on above: Performed By: #### 5 7021-8 #### CANAS CLAUDIADEBRA ([id number]) [facility] ([facility]) [address] [place] [address] CT HEAD WO IV CONTRASTon CT HEAD WO IV CONTRAST Interpreted By: Chris Piper, STUDY: CT HEAD WO IV CONTRAST; 11/02/2024 3:57 pm INDICATION: Signs/Symptoms:Fall. COMPARISON: None. ACCESSION NUMBER(S): [id number] ORDERING CLINICIAN: RALEIGH STEWART TECHNIQUE: Contiguous axial CT images were obtained through the head at 2 mm slice thickness without contrast administration. FINDINGS: INTRACRANIAL: The ventricles, sulci and basal cisterns are within normal limits for size and configuration. The herring-white differentiation is intact. There is no mass effect or midline shift. There is no extraaxial fluid collection. There is no intracranial hemorrhage. The calvarium is unremarkable. EXTRACRANIAL: There is near complete opacification of the right mastoid air cells and partial opacification of the left mastoid air cells. The visualized paranasal sinuses are clear. IMPRESSION: 1. No evidence of acute cortical infarct or intracranial hemorrhage. 2. Opacification of the mastoid air cells bilaterally. MACRO: None Signed by: Chris Piper 11/02/2024 4:28 PM Dictation workstation: [id number] [facility] CT Head WO contraston 2024 1. No evidence of ac joe cortical infarct or intracranial hemorrhage. 2. Opacification of the mastoid air cells bilaterally. MACRO: None Signed by: Chris Piper 11/02/2024 4:28 PM Dictation workstation: [id number] MMODAL Interpreted By: Chris Piper, STUDY: CT HEAD WO IV CONTRAST; 11/02/2024 3:57 pm INDICATION: Signs/Symptoms:Fall. COMPARISON: None. ACCESSION NUMBER(S): [id number] ORDERING CLINICIAN: RALEIGH STEWART TECHNIQUE: Contiguous axial CT images were obtained through the head at 2 mm slice thickness without contrast administration. FINDINGS: INTRACRANIAL: The ventricles, sulci and basal cisterns are within normal limits for size and configuration. The herring-white differentiation is intact. There is no mass effect or midline shift. There is no extraaxial fluid collection. There is no intracranial hemorrhage. The calvarium is unremarkable. EXTRACRANIAL: There is near complete opacification of the right mastoid air cells and partial opacification of the left mastoid air cells. The visualized paranasal sinuses are clear. MMODAL Chris Piper MD - 11/02/2024 Interpreted By: Chris Piper, STUDY: CT HEAD WO IV CONTRAST; 11/02/2024 3:57 pm INDICATION: Signs/Symptoms:Fall. COMPARISON: None. ACCESSION NUMBER(S): [id number] ORDERING CLINICIAN: RALEIGH STEWART TECHNIQUE: Contiguous axial CT images were obtained through the head at 2 mm slice thickness without contrast administration. FINDINGS: INTRACRANIAL: The ventricles, sulci and basal cisterns are within normal limits for size and configuration. The herring-white differentiation is intact. There is no mass effect or midline shift. There is no extraaxial fluid collection. There is no intracranial hemorrhage. The calvarium is unremarkable. EXTRACRANIAL: There is near complete opacification of the right mastoid air cells and partial opacification of the left mastoid air cells. The visualized paranasal sinuses are clear. IMPRESSION: 1. No evidence of acute cortical infarct or intracranial hemorrhage. 2. Opacification of the mastoid air cells bilaterally. MACRO: None Signed by: Chris Piper 11/02/2024 4:28 PM Dictation workstation: [id number] [facility] Work Phone: Radiology Study observation (narrative) [facility] Work Phone: CT Head WO contrastOrdered B y: Chris Kayneil on 11-02-2024 [facility] Work Phone: Comprehensive metabolic 2000 panelon 11-02-2024 Albumin BCP dye [Mass/Vol] 3.6 g/dL 3.4 - 5.0 g/dL [facility] ALP [Catalytic activity/Vol] 81 U/L 33 - 136 U/L [facility] ALT With P-5'-P [Catalytic activity/Vol] 21 U/L 7 - 45 U/L [facility] Comment on above: Patients treated wit h Sulfasalazine may generate falsely decreased results for ALT. Anion gap [Moles/Vol] 12 mmol/L 10 - 2 0 mmol/L [facility] AST With P-5'-P [Catalytic activity/Vol] 20 U/L 9 - 39 U/L [facility] Bilirubin [Mass/Vol] 0.5 mg/dL 0.0 - 1 .2 mg/dL [facility] Calcium [Mass/Vol] 9.1 mg/dL 8.6 - 10. 3 mg/dL [facility] Chloride [Moles/Vol] 95 mmol/L Low 98 - 10 7 mmol/L [facility] CO2 [Moles/Vol] 27 mmol/L 21 - 32 mmol/L [facility] Creatinine [Mass/Vol] 0.63 mg/dL 0.50 - 1.05 mg/dL [facility] eGFR - PINF [facility] Comment on above: Calculations of ernesto mated GFR are performed using the 2020 CKD-EPI Study Refit equation without the race variable for the IDMS-Traceable creatinine methods. https://jasn.asnjournals.org/content/early//ASN.53628 22852 Glucose [Mass/Vol] 111 mg/dL High 74 - 99 mg/dL [facility] Interpretation and review of laboratory results Abnormal [facility] Potassium [Moles/Vol] 3.8 mmol/L 3.5 - 5.3 mmol/L [facility] Protein [Mass/Vol] 7.1 g/dL 6.4 - 8.2 g/dL [facility] Sodium [Moles/Vol] 130 mmol/L Low 136 - 145 mmol/L [facility] Urea nitrogen [Mass/Vol] 17 mg/dL 6 - 23 mg/dL [facility] Albumin BCP dye [Mass/Vol] 3.6 g/dL Normal 3.4-5.0 [facility] Comment on above: Performed By: #### 1 4979-9 #### MISSAEL LAY ([id number]) [facility] ([facility]) [address] [place] [address] ALP [Catalytic activity/Vol] 81 U/L Normal 33-136 [facility] Comment on above: Performed By: #### 1 4979-9 #### MISSAEL LAY ([id number]) [facility] ([facility]) [address] [place] [address] ALT With P-5'-P [Catalytic activity/Vol] 21 U/L Normal 7-45 [facility] Comment on above: Result Comment: Addie ents treated with Sulfasalazine may generate falsely decreased results for ALT. Performed By: #### 1 4979-9 #### MISSAEL LAY ([id number]) [facility] ([facility]) [address] [place] [address] Anion gap [Moles/Vol] 12 mmol/L Normal 10-20 [facility] Comment on above: Performed By: #### 1 4979-9 #### MISSAEL LAY ([id number]) [facility] ([facility]) [address] [place], [place] [id number] AST With P-5'-P [Catalytic activity/Vol] 20 U/L Normal 9-39 [facility] Comment on above: Performed By: #### 1 4979-9 #### MISSAEL LAY ([id number]) [facility] ([facility]) [address] [place] [address] Bilirubin [Mass/Vol] 0.5 mg/dL Normal 0.0-1.2 [facility] Comment on above: Performed By: #### 1 4979-9 #### MISSAEL LAY ([id number]) [facility] ([facility]) [facility] [place] [address] Calcium [Mass/Vol] 9.1 mg/dL Normal 8.6-10.3 [facility] Comment on above: Performed By: #### 1 4979-9 #### MISSAEL LAY ([id number]) [facility] ([facility]) [address] [place] [address] 52780 Chloride [Moles/Vol] 95 mmol/L Low 98-107 [facility] Comment on above: Performed By: #### 1 4979-9 #### MISSAEL LAY ([id number]) [facility] ([facility]) [address] [place] [address] 46722 CO2 [Moles/Vol] 27 mmol/L Normal 21-32 [facility] Comment on above: Performed By: #### 1 4979-9 #### MISSAEL LAY ([id number]) [facility] ([facility]) [address] [place] [address] 76205 Creatinine [Mass/Vol] 0.63 mg/dL Normal 0.50-1.05 [facility] Comment on above: Performed By: #### 1 4979-9 #### MISSAEL LAY ([id number]) [facility] ([facility]) [address] [place] [address] 71485 Glomerular filtration rate >90 Normal >60 [facility] Comment on above: Result Comment: Calc ulations of estimated GFR are performed using the 2020 CKD-EPI Study Refit equation without the race variable for the IDMS-Traceable creatinine methods. https://jasn.asnjournals.org/content/early/ASN.19261 27009 Performed By: #### 1 4979-9 #### MISSAEL LAY ([id number]) [facility] ([facility]) [address] [place] [address] 88034 Glucose [Mass/Vol] 111 mg/dL High 74-99 [facility] Comment on above: Performed By: #### 1 4979-9 #### MISSAEL LAY ([id number]) [facility] ([facility]) [address] [place] [address] Potassium [Moles/Vol] 3.8 mmol/L Normal 3.5-5.3 [facility] Comment on above: Performed By: #### 1 4979-9 #### MISSAEL LAY ([id number]) [facility] ([facility]) [address] [place] [address] Protein [Mass/Vol] 7.1 g/dL Normal 6.4-8.2 [facility] Comment on above: Performed By: #### 1 4979-9 #### MISSAEL LAY ([id number]) [facility] ([facility]) [address] [place] [address] Sodium [Moles/Vol] 130 mmol/L Low 136-145 [facility] Comment on above: Performed By: #### 1 4979-9 #### MISSAEL LAY ([id number]) [facility] ([facility]) [address] [place] [address] Urea nitrogen [Mass/Vol] 17 mg/dL Normal 6-23 [facility] Comment on above: Performed By: #### 1 4979-9 #### MISSAEL LAY ([id number]) [facility] ([facility]) [address] [place] [address] ECG 12-LEADon 11-02-2024 ECG 12-LEAD Ventricular Rate 97 Atrial Rate 97 P-R Interval 128 QRS Duration 86 Q-T Interval 336 QTC Calculation(Bazett) 426 P Essex 12 R Essex -1 T Essex 46 QRS Count 16 Q Onset 229 P Onset 165 P Offset 215 T Offset 397 QTC Fredericia 394 Diagnosis Normal sinus rhythm Inferior infarct , age undetermined Abnormal ECG When compared with ECG of 21-SEP-2024 16:17, Minimal criteria for Anterior infarct are no longer Present Inferior infarct is now Present See ED provider note for full interpretation and clinical correlation Confirmed by Gertrudis Haji ([id number]) on 11/03/2024 11:15:32 AM Normal [facility] FLUAV and FLUBV RNA COOPER+prob e Nom (Unsp spec)on 11-02-2024 FLUAV RNA COOPER+probe Ql (Resp) Not detected Not Detected [facility] FLUBV RNA COOPER+probe Ql (Resp) Not detected Not Detected [facility] This assay is an in vitro diagnostic multiplex nucleic acid amplification test for the detection and discrimination of Influenza A & B from nasopharyngeal specimens, and has been validated for use at [facility]. Negative results do not preclude Influenza A/B infections, and should not be used as the sole basis for diagnosis, treatment, or other management decisions. If Influenza A/B and RSV PCR results are negative, testing for Parainfluenza virus, Adenovirus and Metapneumovirus is routinely performed for [facility] pediatric oncology and intensive care inpatients, and is available on other patients by placing an add-on request. [facility] FLUAV RNA COOPER+probe Ql (Resp) Not detected Normal Not Detected [facility] Comment on above: Order Comment: The A PTT is no longer used for monitoring Unfractionated Heparin Therapy. For monitoring Heparin Therapy, use the Heparin Assay. Performed By: #### 1 4979-9 #### MISSAEL LAY ([id number]) [facility] ([facility]) [address] [place] [address] FLUBV RNA COOPER+probe Ql (Resp) Not detected Normal Not Detected [facility] Comment on above: Order Comment: The A PTT is no longer used for monitoring Unfractionated Heparin Therapy. For monitoring Heparin Therapy, use the Heparin Assay. Performed By: #### 1 4979-9 #### MISSAEL LAY ([id number]) [facility] ([facility]) [address] [place] [address] Lactateon 11-02-2024 Lactate [Moles/Vol] 1.0 mmol/L 0.4 - 2. 0 mmol/L [facility] Lactate [Moles/Vol] 1.0 mmol/L Normal 0.4-2.0 [facility] Comment on above: Order Comment: Venip uncture immediately after or during the administration of Metamizole may lead to falsely low results. Testing should be performed immediately prior to Metamizole dosing. Performed By: #### 5 7021-8 #### MISSAEL LAY ([id number]) [facility] ([facility]) [address] [place] [address] Lactate [Moles/Vol]on 2024 Interpretation and review of laboratory results Normal [facility] Venipuncture immedia tely after or during the administration of Metamizole may lead to falsely low results. Testing should be performed immediately prior to Metamizole dosing. [facility] No Panel Informationon 11-02 Interpretation and review of laboratory results Normal [facility] Radiology Study observation (narrative) [facility] Work Phone: RSV PCRon 11-02-2024 RSV RNA COOPER+probe Ql (Resp) Not detected Not Detected [facility] RSV RNA COOPER+probe Ql (Resp)o n 11-02-2024 This assay is an FDA-cleared, in vitro diagnostic nucleic acid amplification test for the detection of RSV from nasopharyngeal specimens, and has been validated for use at [facility]. Negative results do not preclude RSV infections, and should not be used as the sole basis for diagnosis, treatment, or other management decisions. If Influenza A/B and RSV PCR results are negative, testing for Parainfluenza virus, Adenovirus and Metapneumovirus is routinely performed for pediatric oncology and intensive care inpatients at [facility], and is available on other patients by placing an add-on request. [facility] Respiratory syncytial virus RNAon 11-02-2024 RSV RNA COOPER+probe Ql (Resp) Not detected Normal Not Detected [facility] Comment on above: Order Comment: The A PTT is no longer used for monitoring Unfractionated Heparin Therapy. For monitoring Heparin Therapy, use the Heparin Assay. Performed By: #### 1 4979-9 #### MISSAEL LAY ([id number]) [facility] ([facility]) [address] [place] [address] SARS coronavirus 2 RNAon SARS-CoV-2 (COVID-19) RNA COOPER+probe Ql (Resp) Not detected Normal Not Detected [facility] Comment on above: Order Comment: The A PTT is no longer used for monitoring Unfractionated Heparin Therapy. For monitoring Heparin Therapy, use the Heparin Assay. Performed By: #### 1 4979-9 #### MISSAEL LAY ([id number]) [facility] ([facility]) [address] [place] [address] SARS-CoV-2 (COVID-19) RNA NA A+probe Ql (Resp)on 11-02-2024 This assay is an FDA-cleared, in vitro diagnostic nucleic acid amplification test for the qualitative detection and differentiation of SARS CoV-2 from nasopharyngeal specimens collected from individuals with signs and symptoms of respiratory tract infections, and has been validated for use at [facility]. Negative results do not preclude COVID-19 infections and should not be used as the sole basis for diagnosis, treatment, or other management decisions. Testing for SARS CoV-2 is recommended only for patients who meet current clinical and/or epidemiological criteria defined by federal, state, or local public health directives. [facility] Sars-CoV-2 PCRon 11-02-2024 SARS-CoV-2 (COVID-19) RNA COOPER+probe Ql (Resp) Not detected Not Detected [facility] Tropinin I.cardiac panel Hig h sensitivity methodon 11-02-2024 Interpretation and review of laboratory results Normal [facility] Less than 99th percentile of normal range cutoff- Female and children under 18 years old <14 ng/L; Male <21 ng/L: Negative Repeat testing should be performed if clinically indicated. Female and children under 18 years old 14-50 ng/L; Male 21-50 ng/L: Consistent with possible cardiac damage and possible increased clinical risk. Serial measurements may help to assess extent of myocardial damage. >50 ng/L: Consistent with cardiac damage, increased clinical risk and myocardial infarction. Serial measurements may help assess extent of myocardial damage. NOTE: Children less than 1 year old may have higher baseline troponin levels and results should be interpreted in conjunction with the overall clinical context. NOTE: Troponin I testing is performed using a different testing methodology at [facility] than at other [facility]. Direct result comparisons should only be made within the same method. [facility] Interpretation and review of laboratory results Normal [facility] Less than 99th percentile of normal range cutoff- Female and children under 18 years old <14 ng/L; Male <21 ng/L: Negative Repeat testing should be performed if clinically indicated. Female and children under 18 years old 14-50 ng/L; Male 21-50 ng/L: Consistent with possible cardiac damage and possible increased clinical risk. Serial measurements may help to assess extent of myocardial damage. >50 ng/L: Consistent with cardiac damage, increased clinical risk and myocardial infarction. Serial measurements may help assess extent of myocardial damage. NOTE: Children less than 1 year old may have higher baseline troponin levels and results should be interpreted in conjunction with the overall clinical context. NOTE: Troponin I testing is performed using a different testing methodology at [facility] than at other [facility]. Direct result comparisons should only be made within the same method. [facility] Troponin I, High Sensitivity , Initialon 11-02-2024 Tropinin I.cardiac panel High sensitivity method 8 ng/L 0 - 13 ng/L [facility] Troponin I.cardiac panelon 0 11-02-2024 Tropinin I.cardiac panel High sensitivity method 7 ng/L Normal 0-13 [facility] Comment on above: Order Comment: The A PTT is no longer used for monitoring Unfractionated Heparin Therapy. For monitoring Heparin Therapy, use the Heparin Assay. Performed By: #### 1 4979-9 #### MISSAEL LAY ([id number]) [facility] ([facility]) [facility] [place] [address] Tropinin I.cardiac panel High sensitivity method 8 ng/L Normal 0-13 [facility] Comment on above: Order Comment: The A PTT is no longer used for monitoring Unfractionated Heparin Therapy. For monitoring Heparin Therapy, use the Heparin Assay. Performed By: #### 1 4979-9 #### MISSAEL LAY ([id number]) [facility] ([facility]) [address] [place] [address] Troponin, High Sensitivity, 1 Houron 11-02-2024 Tropinin I.cardiac panel High sensitivity method 7 ng/L 0 - 13 ng/L [facility] Urinalysis complete W Reflex Culture panel (U)on 11-02-2024 Appearance (U) Clear Clear [facility] Bilirubin (U) [Mass/Vol] Negative NEGATIVE mg/dL [facility] Color (U) Yellow Light-Yellow , Yellow, Dark-Yellow [facility] Glucose Auto test strip (U) [Mass/Vol] Normal Normal mg/dL [facility] Interpretation and review of laboratory results Normal [facility] Ketones (U) [Mass/Vol] Negative NEGAT ARNOLD mg/dL [facility] Leukocyte esterase Auto test strip Ql (U) Negative NEGATIVE [facility] Nitrite Auto test strip Ql (U) Negative NEGATIVE [facility] pH (U) 7.0 [pH] 5.0, 5.5, 6.0, 6.5, 7.0, 7.5, 8.0 [facility] Protein (U) [Mass/Vol] Negative NEGAT ARNOLD, 10 (TRACE), 20 (TRACE) mg/dL [facility] RBC (U) [#/Vol] Negative NEGATIVE mg/dL [facility] Specific gravity (U) [Rel density] 1.007 1.005 - 1.035 [facility] Urobilinogen (U) [Mass/Vol] Normal Normal mg/dL [facility] Appearance (U) Clear Normal Clear [facility] Comment on above: Performed By: #### 5 7021-8 #### MISSAEL LAY ([id number]) [facility] ([facility]) [address] [place] [address] Bilirubin (U) [Mass/Vol] Negative Normal NEGATIVE [facility] Comment on above: Performed By: #### 5 7021-8 #### MISSAEL LAY ([id number]) [facility] ([facility]) [address] [place] [address] Color (U) Yellow Normal Light-Yellow , Yellow, Dark-Yellow [facility] Comment on above: Performed By: #### 5 7021-8 #### MISSAEL LAY ([id number]) [facility] ([facility]) [address] [place] [address]73 Glucose Auto test strip (U) [Mass/Vol] Normal Normal Normal [facility] Comment on above: Performed By: #### 5 7021-8 #### MISSAEL LAY ([id number]) [facility] ([facility]) [address] [place] [address] Ketones (U) [Mass/Vol] Negative Normal NEGATIVE [facility] Comment on above: Performed By: #### 5 7021-8 #### MISSAEL LAY ([id number]) [facility] ([facility]) [address] [place] [address] Leukocyte esterase Auto test strip Ql (U) Negative Normal NEGATIVE [facility] Comment on above: Performed By: #### 5 7021-8 #### MISSAEL LAY ([id number]) [facility] ([facility]) [address] [place] [address]14 Nitrite Auto test strip Ql (U) Negative Normal NEGATIVE [facility] Comment on above: Performed By: #### 5 7021-8 #### MISSAEL LAY ([id number]) [facility] ([facility]) [address] [place] [address] pH (U) 7.0 [pH] Normal 5.0, 5.5, 6.0, 6.5, 7.0, 7.5, 8.0 [facility] Comment on above: Performed By: #### 5 7021-8 #### MISSAEL LAY ([id number]) [facility] ([facility]) [address] [place] [address] Protein (U) [Mass/Vol] Negative Normal NEGAT ARNOLD, 10 (TRACE), 20 (TRACE) [facility] Comment on above: Performed By: #### 5 7021-8 #### MISSAEL LAY ([id number]) [facility] ([facility]) [address] [place] [address] RBC (U) [#/Vol] Negative Normal NEGATIVE [facility] Comment on above: Performed By: #### 5 7021-8 #### MISSAEL LAY ([id number]) [facility] ([facility]) [address] [place] [address]461 Specific gravity (U) [Rel density] 1.007 Normal 1.005-1.035 [facility] Comment on above: Performed By: #### 5 7021-8 #### MISSAEL LAY ([id number]) [facility] ([facility]) [address] [place] [address] 38600 Urobilinogen (U) [Mass/Vol] Normal Normal Normal [facility] Comment on above: Performed By: #### 5 7021-8 #### CANAS ALIREZA ([id number]) [facility] ([facility]) [address] [place] [address] XR CHEST 1 VIEWon 11-02-2024 XR CHEST 1 VIEW Interpreted By: Ernesto Massey, STUDY: XR CHEST 1 VIEW;; 11/02/2024 3:05 pm INDICATION: Signs/Symptoms:Weakness. COMPARISON: 09/21/2024 ACCESSION NUMBER(S): [id number] ORDERING CLINICIAN: RALEIGH STEWART FINDINGS: The cardiac silhouette is stable for the technique. No consolidations, effusions, infiltrates or pneumothorax. IMPRESSION: No evidence for acute cardiopulmonary process. If there is clinical concern for acute pulmonary embolic disease or acute aortic pathology, further evaluation with chest CT should be considered for better assessment. Signed by: Ernesto Hemphill 11/02/2024 3:38 PM Dictation workstation: [id number] Normal [facility] XR Chest Single viewon 11-02 No evidence for acut e cardiopulmonary process. If there is clinical concern for acute pulmonary embolic disease or acute aortic pathology, further evaluation with chest CT should be considered for better assessment. Signed by: Ernesto Hemphill 11/02/2024 3:38 PM Dictation workstation: [id number] [facility] Interpreted By: Ernesto Massey, STUDY: XR CHEST 1 VIEW;; 11/02/2024 3:05 pm INDICATION: Signs/Symptoms:Weakness. COMPARISON: 09/21/2024 ACCESSION NUMBER(S): [id number] ORDERING CLINICIAN: RALEIGH STEWART FINDINGS: The cardiac silhouette is stable for the technique. No consolidations, effusions, infiltrates or pneumothorax. [facility] Ernesto Hemphill MD - 11/02/2024 Interpreted By: Ernesto Hemphill, STUDY: XR CHEST 1 VIEW;; 11/02/2024 3:05 pm INDICATION: Signs/Symptoms:Weakness. COMPARISON: 09/21/2024 ACCESSION NUMBER(S): [id number] ORDERING CLINICIAN: RALEIGH STEWART FINDINGS: The cardiac silhouette is stable for the technique. No consolidations, effusions, infiltrates or pneumothorax. IMPRESSION: No evidence for acute cardiopulmonary process. If there is clinical concern for acute pulmonary embolic disease or acute aortic pathology, further evaluation with chest CT should be considered for better assessment. Signed by: Ernesto Hemphill 11/02/2024 3:38 PM Dictation workstation: [id number] [facility] Work Phone: XR Chest Single viewOrdered By: Ernesto Hemphill on 11-02-2024 [facility] Work Phone: XR HIP LEFT WITH PELVIS WHEN PERFORMED 2 OR 3 VIEWSon 11-02-2024 XR HIP LEFT WITH PELVIS WHEN PERFORMED 2 OR 3 VIEWS Interpreted By: Ernesto Hemphill, STUDY: XR HIP LEFT WITH PELVIS WHEN PERFORMED 2 OR 3 VIEWS;; 11/02/2024 3:05 pm INDICATION: Signs/Symptoms:Left hip pain. COMPARISON: None. ACCESSION NUMBER(S): [id number] ORDERING CLINICIAN: RALEIGH STEWART FINDINGS: Degenerative changes of bilateral hip joints including joint space narrowing, subchondral sclerosis and spurring, worse on the right. Mild degenerative changes of visualized lower lumbar spine. There is no evidence for acute fracture or dislocation identified. No bone lesions or cortical erosions. No radiopaque foreign body. IMPRESSION: Mild osteoarthritis of bilateral hip joints, worse on the right. No evidence for acute displaced fracture or dislocation is seen. Signed by: Ernesto Hemphill 11/02/2024 3:39 PM Dictation workstation: [id number] [facility] XR Hip Viewson 11-02-2024 Mild osteoarthritis of bilateral hip joints, worse on the right. No evidence for acute displaced fracture or dislocation is seen. Signed by: Ernesto Hemphill 11/02/2024 3:39 PM Dictation workstation: [id number] [facility] Interpreted By: Ernesto Massey, STUDY: XR HIP LEFT WITH PELVIS WHEN PERFORMED 2 OR 3 VIEWS;; 11/02/2024 3:05 pm INDICATION: Signs/Symptoms:Left hip pain. COMPARISON: None. ACCESSION NUMBER(S): [id number] ORDERING CLINICIAN: RALEIGH STEWART FINDINGS: Degenerative changes of bilateral hip joints including joint space narrowing, subchondral sclerosis and spurring, worse on the right. Mild degenerative changes of visualized lower lumbar spine. There is no evidence for acute fracture or dislocation identified. No bone lesions or cortical erosions. No radiopaque foreign body. MMErnesto Orosco MD - 11/02/2024 Interpreted By: Ernesto Hemphill, STUDY: XR HIP LEFT WITH PELVIS WHEN PERFORMED 2 OR 3 VIEWS;; 11/02/2024 3:05 pm INDICATION: Signs/Symptoms:Left hip pain. COMPARISON: None. ACCESSION NUMBER(S): [id number] ORDERING CLINICIAN: RALEIGH STEWART FINDINGS: Degenerative changes of bilateral hip joints including joint space narrowing, subchondral sclerosis and spurring, worse on the right. Mild degenerative changes of visualized lower lumbar spine. There is no evidence for acute fracture or dislocation identified. No bone lesions or cortical erosions. No radiopaque foreign body. IMPRESSION: Mild osteoarthritis of bilateral hip joints, worse on the right. No evidence for acute displaced fracture or dislocation is seen. Signed by: Ernesto Hemphill 11/02/2024 3:39 PM Dictation workstation: [id number] [facility] Work Phone: [facility] Work Phone: POINT OF CARE ULTRASOUND NO CHARGEon 11-01-2024 POINT OF CARE ULTRASOUND NO CHARGE These images are not reportable by radiology and will not be interpreted by Radiologists. Normal [facility] US Abdomenon 11-01-2024 These images are not reportable by radiology and will not be interpreted by Radiologists. IMAGING XR HAND RIGHT 3+ VIEWSon XR HAND RIGHT 3+ VIEWS Interpreted By: Abdiaziz Chavez, STUDY: XR HAND RIGHT 3+ VIEWS; ; 11/01/2024 11:27 am INDICATION: Signs/Symptoms:RIGHT HAND PAIN. ,M79.641 Pain in right hand COMPARISON: 06/02/2021 ACCESSION NUMBER(S): [id number] ORDERING CLINICIAN: SAVANNA CALDERON FINDINGS: There is a chronic 0.5 cm x 0.2 cm low corticated bone fragment dorsal to the head of the 3rd middle phalanx. It is from the base of the distal phalanx by 0.2 cm. This represents a previous acute avulsion fracture of an osteophyte from the dorsal base of the 3rd distal phalanx. No evidence of new acute osseous injury to the left hand. There is mild degenerative change of the 1st carpometacarpal joint and interphalangeal joints. No osseous destruction or erosive change. No radiopaque foreign bodies or soft tissue gas. IMPRESSION: Mild osteoarthrosis of the interphalangeal joints and 1st carpometacarpal joints similar to prior study. 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 MACRO: None. Signed by: Abdiaziz Chavez 11/02/2024 2:09 PM Dictation workstation: [id number] [facility] EMGon 10-21-2024 Rashmi Cohen MD 10/21/2024 9:32 AM EMG Date/Time: 10/21/2024 9:29 AM Performed by: Rashmi Cohen MD Authorized by: Rashmi Cohen MD Verbal consent: obtained Consent given by: patient Time out: Immediately prior to procedure a time out was called to verify the correct patient, procedure, equipment, director sales support and site/side marked as required. Patient tolerance: Patient tolerated the procedure well with no immediate complications NATUS [facility] BASIC METABOLIC PANEL WITH A NION GAPon 10-15-2024 BUN/CREATININE RATIO SEE NOTE: Normal 6-22 [facility] Comment on above: Order Comment: FASTI NG:YES FASTING: YES Result Comment: Not Reported: BUN and Creatinine are within reference range. Performed By: #### 9 [id number] #### [facility] [address], [address] [place] [address] Insurance Manager: Rob Simpson MD Calcium [Mass/Vol] 8.4 mg/dL Low 8.6-10.4 [facility] Comment on above: Order Comment: FASTI NG:YES FASTING: YES Performed By: #### 9 3352 #### [facility] [address], [address] [place] [address] Insurance Manager: Rob Simpson MD Chloride [Moles/Vol] 97 mmol/L Low 98-110 [facility] t [facility] Comment on above: Order Comment: FASTI NG:YES FASTING: YES Performed By: #### 9 2498 #### [facility] [place] [address] Insurance Manager: Rob Simpson MD CO2 [Moles/Vol] 26 mmol/L Normal 20-32 [facility] Comment on above: Order Comment: FASTI NG:YES FASTING: YES Performed By: #### 9 2498 #### [facility] [address], [address] [place] [address] Insurance Manager: Rob Simpson MD Creatinine [Mass/Vol] 0.90 mg/dL Normal 0.60-1.00 [facility] Comment on above: Order Comment: FASTI NG:YES FASTING: YES Performed By: #### 9 2498 #### [facility] [place] [address] Insurance Manager: Rob Smipson MD ELECTROLYTE BALANCE 12 mmol/L (calc) Normal 7-17 [facility] Comment on above: Order Comment: FASTI NG:YES FASTING: YES Performed By: #### 9 6248 #### [facility] [place] [address] Insurance Manager: Rob Simpson MD GFR/1.73 sq M.predicted among non-blacks MDRD (S/P/Bld) [Vol rate/Area] 66 mL/min/{1.73_m2} Normal > OR = 60 [facility] Comment on above: Order Comment: FASTI NG:YES FASTING: YES Performed By: #### 9 6428 #### [facility] [place] [address] Insurance Manager: Rob Simpson MD Glucose [Mass/Vol] 114 mg/dL High 65-99 [facility] Comment on above: Order Comment: FASTI NG:YES FASTING: YES Result Comment: Fasting reference interval For someone without known diabetes, a glucose value between 100 and 125 mg/dL is consistent with prediabetes and should be confirmed with a follow-up test. Performed By: #### 9 2498 #### [facility] [address], [address] [place] [address] Insurance Manager: Rob Simpson MD Potassium [Moles/Vol] 2.9 mmol/L Low 3.5-5.3 [facility] Comment on above: Order Comment: FASTI NG:YES FASTING: YES Performed By: #### 9 2498 #### [facility] [address], [address] [place] [address] Insurance Manager: Rob Simpson MD Sodium [Moles/Vol] 135 mmol/L Normal 135-146 [facility] Comment on above: Order Comment: FASTI NG:YES FASTING: YES Performed By: #### 9 2498 #### [facility] [address], [address] [place] [address] Insurance Manager: Rob Simpson MD Urea nitrogen [Mass/Vol] 23 mg/dL Normal 7-25 [facility] Comment on above: Order Comment: FASTI NG:YES FASTING: YES Performed By: #### 9 2498 #### [facility] [address], [address] [place] [address] Insurance Manager: Rob Simpson MD [place] PAIN MANAGEMENTon 025 PR PAIN MANAGEMENT These images are not reportable by radiology and will not be interpreted by Radiologists. Normal [facility] No Panel Informationon 10-15 [facility] Work Phone: These images are not reportable by radiology and will not be interpreted by Radiologists. IMAGING Radiology Study observation (narrative) [facility] Work Phone: MR LUMBAR SPINE WO IV CONTRA STon 10-04-2024 MR LUMBAR SPINE WO IV CONTRAST Interpreted By: Leonidas Maynard, STUDY: MR LUMBAR SPINE WO IV CONTRAST; 10/04/2024 4:19 pm INDICATION: Signs/Symptoms:dx. ,M54.16 Radiculopathy, lumbar region COMPARISON: None. ACCESSION NUMBER(S): [id number] ORDERING CLINICIAN: CYNDI HORN TECHNIQUE: The lumbar spine was studied in the sagital, axial and coronal planes utiliing T1 and T2 weighted images. FINDINGS: Loss of height and signal at intervertebral disc spaces throughout the lumbar spine. The marrow signal and vertebral body height are normal. The conus and sacrum are normal. Images at each interspace reveal the following: T12/L1 There is normal alignment and vertebral body height. The disc space is normal. There is no evidence of canal or foraminal narrowing. There is no evidence of bulging or herniated disc. L1/L2 There is normal alignment and vertebral body height. The disc space is normal. There is no evidence of canal or foraminal narrowing. There is no evidence of bulging or herniated disc. L2/L3 There is normal alignment and vertebral body height. The disc space is normal. There is no evidence of canal or foraminal narrowing. There is no evidence of bulging or herniated disc. L3/L4 Mild bulging disc and facet hypertrophy without canal stenosis. Mild bilateral foraminal narrowing. L4/L5 Trace spondylolisthesis. Bilateral facet hypertrophy. Bilateral ligamentum flavum hypertrophy. Flattening of the thecal sac which measures a proximally 7 mm in AP dimension in the midline. Moderate bilateral foraminal narrowing. L5/S1 Bilateral facet hypertrophy without canal or foraminal narrowing IMPRESSION: Lumbar spondylosis as described Moderate foraminal narrowing and lumbar canal stenosis at L4/L5 MACRO: none Signed by: Leonidas Maynard 10/07/2024 8:51 AM Dictation workstation: [id number] Normal [facility] CBC W Auto Differential pane l (Bld)on 09-30-2024 Basophils (Bld) [#/Vol] 0.05 x10*3/uL Normal 0.00-0.10 [facility] Comment on above: Performed By: #### 5 7021-8 ####MISSAEL LAY ([id number])[facility] ([facility])[address] [place] [address] Basophils/100 WBC (Bld) 0.4 % Normal 0.0-2.0 [facility] Comment on above: Performed By: #### 5 7021-8 ####MISSAEL LAY ([id number])[facility] ([facility])[address] [place] [address] Eosinophils (Bld) [#/Vol] 0.07 x10*3/uL Normal 0.00-0.40 [facility] Comment on above: Performed By: #### 5 7021-8 ####MISSAEL LAY ([id number])[facility] ([facility])[address] [place] [address] Eosinophils/100 WBC (Bld) 0.6 % Normal 0.0-6.0 [facility] Comment on above: Performed By: #### 5 7021-8 ####MISSAEL LAY ([id number])[facility] ([facility])[address] [place] [address]39[address] Erythrocyte distribution width (RBC) [Ratio] 13.6 % Normal 11.5-14.5 [facility] Comment on above: Performed By: #### 5 7021-8 ####MISSAEL LAY ([id number])[facility] ([facility])[address] [place] [address] 916[address] Hematocrit (Bld) [Volume fraction] 38.0 % Normal 36.0-46.0 [facility] Comment on above: Performed By: #### 5 7021-8 ####MISSAEL LAY ([id number])[facility] ([facility])[address] [place] [address] 31858 Hemoglobin (Bld) [Mass/Vol] 12.8 g/dL Normal 12.0-16.0 [facility] Comment on above: Performed By: #### 5 7021-8 ####MISSAEL LAY ([id number])[facility] ([facility])[address] [place] [address] 77341 Immature granulocytes (Bld) [#/Vol] 0.07 x10*3/uL Normal 0.00-0.50 [facility] Comment on above: Performed By: #### 5 7021-8 ####MISSAEL LAY ([id number])[facility] ([facility])[address] [place] [address] 79352 Immature granulocytes/100 WBC (Bld) 0.6 % Normal 0.0-0.9 [facility] Comment on above: Result Comment: Shiela ture Granulocyte Count (IG) includes promyelocytes, myelocytes and metamyelocytes but does not include bands. Percent differential counts (%) should be interpreted in the context of the absolute cell counts (cells/UL). Performed By: #### 5 7021-8 ####MISSAEL LAY ([id number])[facility] ([facility])[address] [place] [address] 62460 Lymphocytes (Bld) [#/Vol] 1.38 x10*3/uL Normal 0.80-3.00 [facility] Comment on above: Performed By: #### 5 7021-8 ####MISSAEL LAY ([id number])[facility] ([facility])[address] [place], [place] [id number] Lymphocytes/100 WBC (Bld) 12.1 % Normal 13.0-44.0 [facility] Comment on above: Performed By: #### 5 7021-8 ####MISSAEL LAY ([id number])[facility] ([facility])[address] [place] [address] 87952 MCH (RBC) [Entitic mass] 32.2 pg Normal 26.0-34.0 [facility] Comment on above: Performed By: #### 5 7021-8 ####MISSAEL LAY ([id number])[facility] ([facility])[address] [place] [address] 33389 MCHC (RBC) [Mass/Vol] 33.7 g/dL Normal 32.0-36.0 [facility] Comment on above: Performed By: #### 5 7021-8 ####MISSAEL LAY ([id number])[facility] ([facility])[address] [place] [address] 54408 MCV (RBC) [Entitic vol] 96 fL Normal 80-100 [facility] Comment on above: Performed By: #### 5 7021-8 ####MISSAEL LAY ([id number])[facility] ([facility])[address] [place] [address] 13058 Monocytes (Bld) [#/Vol] 0.72 x10*3/uL Normal 0.05-0.80 [facility] Comment on above: Performed By: #### 5 7021-8 ####MISSAEL LAY ([id number])[facility] ([facility])[address] [place] [address] 955[address] Monocytes/100 WBC (Bld) 6.3 % Normal 2.0-10.0 [facility] Comment on above: Performed By: #### 5 7021-8 ####MISSAEL LAY ([id number])[facility] ([facility])[address] [place] [address] 63858 Neutrophils (Bld) [#/Vol] 9.12 x10*3/uL High 1.60-5.50 [facility] Comment on above: Result Comment: Perc ent differential counts (%) should be interpreted in the context of the absolute cell counts (cells/uL). Performed By: #### 5 7021-8 ####MISSAEL LAY ([id number])[facility] ([facility])[address] [place] [address] 06424 Neutrophils/100 WBC (Bld) 80.0 % Normal 40.0-80.0 [facility] Comment on above: Performed By: #### 5 7021-8 ####MISSAEL LAY ([id number])[facility] ([facility])[address] [place] [address] 24169 Nucleated RBC/100 WBC (Bld) [Ratio] 0.0 /100 WBCs Normal 0.0-0.0 [facility] Comment on above: Performed By: #### 5 7021-8 ####MISSAEL LAY ([id number])[facility] ([facility])[address] [place] [address] 06787 Platelets (Bld) [#/Vol] 323 x10*3/uL Normal 150-450 [facility] Comment on above: Performed By: #### 5 7021-8 ####MISSAEL LAY ([id number])[facility] ([facility])[address] [place] [address] 24964 RBC (Bld) [#/Vol] 3.97 x10*6/uL Low 4.00-5.20 [facility] Comment on above: Performed By: #### 5 7021-8 ####MISSAEL LAY ([id number])[facility] ([facility])[address] [place], [place] [id number] WBC (Bld) [#/Vol] 11.4 x10*3/uL High 4.4-11.3 [facility] Comment on above: Performed By: #### 5 7021-8 ####MISSAEL LAY ([id number])[facility] ([facility])[address] [place] [address] Calcidiolon 09-30-2024 25-hydroxyvitamin D3 [Mass/Vol] 67 ng/mL Normal 30-100 [facility] Comment on above: Order Comment: Defic iency: < 20 ng/mlInsufficiency: 20-29 ng/mlSufficiency: 30-100 ng/mlThis assay accurately quantifies the sum of Vitamin D3, 25-Hydroxy and Vitamin D2,25-Hydroxy. Performed By: #### 5 7021-8 #### MISSAEL LAY ([id number]) [facility] ([facility]) [address] [place], [place] [address] Cobalaminson 09-30-2024 Cobalamin (Vitamin B12) [Mass/Vol] 682 pg/mL Normal 211-911 [facility] Comment on above: Performed By: #### 5 7021-8 #### MISSAEL LAY ([id number]) [facility] ([facility]) [address] [place], [place] [address] Comprehensive metabolic 2000 panelon 09-30-2024 Albumin BCP dye [Mass/Vol] 3.7 g/dL Normal 3.4-5.0 [facility] Comment on above: Performed By: #### 2 4323-8 ####MISSAEL LAY ([id number])[facility] ([facility])[address] [place] [address] 50860 ALP [Catalytic activity/Vol] 74 U/L Normal 33-136 [facility] Comment on above: Performed By: #### 2 4323-8 ####MISSAEL LAY ([id number])[facility] ([facility])[address] [place] [address] ALT With P-5'-P [Catalytic activity/Vol] 20 U/L Normal 7-45 [facility] Comment on above: Result Comment: Addie ents treated with Sulfasalazine may generate falsely decreased results for ALT. Performed By: #### 2 4323-8 ####MISSAEL LAY ([id number])[facility] ([facility])[address] [place] [address] 11363 Anion gap [Moles/Vol] 13 mmol/L Normal 10-20 [facility] Comment on above: Performed By: #### 2 4323-8 ####MISSAEL LAY ([id number])[facility] ([facility])[address] [place] [address] 09548 AST With P-5'-P [Catalytic activity/Vol] 17 U/L Normal 9-39 [facility] Comment on above: Performed By: #### 2 4323-8 ####MISSAEL LAY ([id number])[facility] ([facility])[address] [place] [address] 51849 Bilirubin [Mass/Vol] 0.8 mg/dL Normal 0.0-1.2 [facility] Comment on above: Performed By: #### 2 4323-8 ####MISSAEL LAY ([id number])[facility] ([facility])[address] [place] [address] 38586 Calcium [Mass/Vol] 9.1 mg/dL Normal 8.6-10.3 [facility] Comment on above: Performed By: #### 2 4323-8 ####MISSAEL LAY ([id number])[facility] ([facility])[address] [place] [address] 74607 Chloride [Moles/Vol] 94 mmol/L Low 98-107 [facility] Comment on above: Performed By: #### 2 4323-8 ####MISSAEL LAY ([id number])[facility] ([facility])[address] [place] [address] 74156 CO2 [Moles/Vol] 27 mmol/L Normal 21-32 [facility] Comment on above: Performed By: #### 2 4323-8 ####MISSAEL LAY ([id number])[facility] ([facility])[address] [place] [address] 69168 Creatinine [Mass/Vol] 0.80 mg/dL Normal 0.50-1.05 [facility] Comment on above: Performed By: #### 2 4323-8 ####MISSAEL LAY ([id number])[facility] ([facility])[address] [place] [address] 68325 Glomerular filtration rate 76 mL/min/1.73m*2 Normal >60 [facility] Comment on above: Result Comment: Calc ulations of estimated GFR are performed using the 2020 CKD-EPI Study Refit equation without the race variable for the IDMS-Traceable creatinine methods. https://jasn.asnjournals.org/content/early//ASN.13634 98499 Performed By: #### 2 4323-8 ####MISSAEL LAY ([id number])[facility] ([facility])[address] [place] [address] 98633 Glucose [Mass/Vol] 110 mg/dL High 74-99 [facility] Comment on above: Performed By: #### 2 4323-8 ####MISSAEL LAY ([id number])[facility] ([facility])[address] [place] [address] 55417 Potassium [Moles/Vol] 3.5 mmol/L Normal 3.5-5.3 [facility] Comment on above: Performed By: #### 2 4323-8 ####MISSAEL LAY ([id number])[facility] ([facility])[address] [place] [address] 66336 Protein [Mass/Vol] 6.2 g/dL Low 6.4-8.2 [facility] Comment on above: Performed By: #### 2 4323-8 ####MISSAEL LAY ([id number])[facility] ([facility])[address] [place] [address] Sodium [Moles/Vol] 130 mmol/L Low 136-145 [facility] Comment on above: Performed By: #### 2 4323-8 ####MISSAEL LAY ([id number])[facility] ([facility])[address] [place] [address] Urea nitrogen [Mass/Vol] 31 mg/dL High 6-23 [facility] Comment on above: Performed By: #### 2 4323-8 ####MISSAEL LAY ([id number])[facility] ([facility])[address] [place] [address] 33174 HbA1c (Bld) [Mass fraction]o n 09-30-2024 Average glucose Estimated from glycated hemoglobin (Bld) [Mass/Vol] 105 mg/dL Normal Not Established [facility] Comment on above: Order Comment: Diagn osis of Tbxcozlw-ZubqswQrc-Evxohtxf: < or = 5.6%Increased risk for developing diabetes: 5.7-6.4%Diagnostic of diabetes: > or = 6.5% Performed By: #### 4 548-4 ####ADELE Esposito ([id number])[facility] ([facility])[id number] [place], [place] [address] Hemoglobin A1c/Hemoglobin.to kylee 09-30-2024 HbA1c (Bld) [Mass fraction] 5.3 % Normal See comment [facility] Comment on above: Order Comment: Diagn osis of Xaugarya-JahddkKhj-Nsvmasbe: < or = 5.6%Increased risk for developing diabetes: 5.7-6.4%Diagnostic of diabetes: > or = 6.5% Performed By: #### 4 548-4 ####ADELE Esposito ([id number])[facility] ([facility])[address] [place] [address] 47519 Lipid 1996 panelon 5 Cholesterol [Mass/Vol] 169 mg/dL Normal 0-199 [facility] Comment on above: Result Comment: Age Desirable Borderline High High 0-19 Y 0 - 169 170 - 199 >/= 200 20-24 Y 0 - 189 190 - 224 >/= 225 >24 Y 0 - 199 200 - 239 >/= 240 All ranges are based on fasting samples. Specific therapeutic targets will vary based on patient-specific cardiac risk. Pediatric guidelines reference:Pediatrics 2011, 128(S5).Adult guidelines reference: NCEP ATPIII Guidelines,DYLAN 2001, 258:2486-97 Venipuncture immediately after or during the administration of Metamizole may lead to falsely low results. Testing should be performed immediately prior to Metamizole dosing. Performed By: #### 2 4331-1 ####MISSAEL LAY ([id number])[facility] ([facility])[address] [place] [address] 24337 Cholesterol in HDL [Mass/Vol] 66.0 mg/dL Normal [facility] Comment on above: Result Comment: Age Very Low Low Normal High 0-19 Y < 35 < 40 40-45 ---- 20-24 Y ---- < 40 >45 ---- >24 Y ---- < 40 40-60 >60 Performed By: #### 2 4331-1 ####MISSAEL LAY ([id number])[facility] ([facility])[address] [place] [address] 08599 Cholesterol in LDL [Mass/Vol] 85 mg/dL Normal <=99 [facility] Comment on above: Result Comment: Near Borderline AGE Desirable Optimal High High Very High 0-19 Y 0 - 109 --- 110-129 >/= 130 ---- 20-24 Y 0 - 119 --- 120-159 >/= 160 ---- >24 Y 0 - 99 100-129 130-159 160-189 >/=190 LDL Cholesterol is calculated using the Friedewald equation. Performed By: #### 2 4331-1 ####MISSAEL LAY ([id number])[facility] ([facility])[address] [place] [address] 38357 Cholesterol in VLDL [Mass/Vol] 18 mg/dL Normal 0-40 [facility] Comment on above: Performed By: #### 2 4331-1 ####MISSAEL LAY ([id number])[facility] ([facility])[address] [place] [address] 84934 CHOLESTEROL/HDL RATIO 2.6 Normal [facility] Comment on above: Result Comment: Ref Values Desirable < 3.4 High Risk > 5.0 Performed By: #### 2 4331-1 ####MISSAEL LAY ([id number])[facility] ([facility])[address] [place] [address] 05926 NON HDL CHOLESTEROL 103 mg/dL Normal 0-149 [facility] Comment on above: Result Comment: Age Desirable Borderline High High Very High 0-19 Y 0 - 119 120 - 144 >/= 145 >/= 160 20-24 Y 0 - 149 150 - 189 >/= 190 ---- >24 Y 30 mg/dL above LDL Cholesterol goal Performed By: #### 2 4331-1 ####MISSAEL LAY ([id number])[facility] ([facility])[address] [place] [address] 38444 Triglyceride [Mass/Vol] 92 mg/dL Normal 0-149 [facility] Comment on above: Result Comment: Age Desirable Borderline High Very High SEX:B mg/dL mg/dL mg/dL mg/dL <=14D 86-277 ---- ---- ---- 15D-365D 55-277 ---- ---- ---- 1Y-9Y 0-74 75-99 >=100 ---- 10Y-19Y 0-89 90-129 >=130 ---- 20Y-24Y 0-114 115-149 >=150 ---- >= 25Y 0-149 150-199 200-499 >=500 Venipuncture immediately after or during the administration of Metamizole may lead to falsely low results. Testing should be performed immediately prior to Metamizole dosing. Performed By: #### 2 4331-1 ####MISSAEL LAY ([id number])[facility] ([facility])[address] [place] [address] 87842 TSH WITH REFLEX TO FREE T4 I F ABNORMALon 09-30-2024 TSH Qn 1.01 m[IU]/L Normal 0.44-3.98 [facility] Comment on above: Order Comment: TSH t esting is performed using different testing methodology at [facility] than at other [facility]. Direct result comparisons should only be made within the same method. Performed By: #### T AYDEE ####MISSAEL LAY ([id number])[facility] ([facility])[address] [place] [address] Basic metabolic 2000 panelon 09-24-2024 Anion gap [Moles/Vol] 12 mmol/L 10 - 2 0 mmol/L [facility] Calcium [Mass/Vol] 8.0 mg/dL Low 8.6 - 10. 3 mg/dL [facility] Chloride [Moles/Vol] 100 mmol/L 98 - 10 7 mmol/L [facility] CO2 [Moles/Vol] 21 mmol/L 21 - 32 mmol/L [facility] Creatinine [Mass/Vol] 0.72 mg/dL 0.50 - 1.05 mg/dL [facility] GFR/1.73 sq M.predicted among non-blacks MDRD (S/P/Bld) [Vol rate/Area] 86 mL/min/{1.73_m2} - PINF [facility] Comment on above: Calculations of ernesto mated GFR are performed using the 2020 CKD-EPI Study Refit equation without the race variable for the IDMS-Traceable creatinine methods. https://jasn.asnjournals.org/content//ASN.13966 84672 Glucose [Mass/Vol] 169 mg/dL High 74 - 99 mg/dL [facility] Interpretation and review of laboratory results Abnormal [facility] Potassium [Moles/Vol] 3.6 mmol/L 3.5 - 5.3 mmol/L [facility] Sodium [Moles/Vol] 129 mmol/L Low 136 - 145 mmol/L [facility] Comment on above: Reviewed with previo us results Urea nitrogen [Mass/Vol] 20 mg/dL 6 - 23 mg/dL [facility] Anion gap [Moles/Vol] 12 mmol/L Normal 10-20 [facility] Comment on above: Performed By: #### 2 4321-2 ####MISSAEL LAY ([id number])[facility] ([facility] [place] [address] Calcium [Mass/Vol] 8.0 mg/dL Low 8.6-10.3 [facility] Comment on above: Performed By: #### 2 4321-2 ####MISSAEL LAY ([id number])[facility] ([facility])[address] [place] [address] 72108 Chloride [Moles/Vol] 100 mmol/L Normal 98-107 [facility] Comment on above: Performed By: #### 2 4321-2 ####MISSAEL LAY ([id number])[facility] ([facility])[address] [place] [address] 74237 CO2 [Moles/Vol] 21 mmol/L Normal 21-32 [facility] Comment on above: Performed By: #### 2 4321-2 ####MISSAEL LAY ([id number])[facility] ([facility])[address] [place] [address] 52869 Creatinine [Mass/Vol] 0.72 mg/dL Normal 0.50-1.05 [facility] Comment on above: Performed By: #### 2 4320-2 ####MISSAEL LAY ([id number])[facility] ([facility])[address] [place] [address] 74729 Glomerular filtration rate 86 mL/min/1.73m*2 Normal >60 [facility] Comment on above: Result Comment: Calc ulations of estimated GFR are performed using the 2020 CKD-EPI Study Refit equation without the race variable for the IDMS-Traceable creatinine methods. https://jasn.asnjournals.org/content//ASN.75412 20346 Performed By: #### 2 4320-2 ####MISSAEL LAY ([id number])[facility] ([facility])[address] [place] [address] 64091 Glucose [Mass/Vol] 169 mg/dL High 74-99 [facility] Comment on above: Performed By: #### 2 4321-2 ####MISSAEL LAY ([id number])[facility] ([facility])[address] [place] [address] 12926 Potassium [Moles/Vol] 3.6 mmol/L Normal 3.5-5.3 [facility] Comment on above: Performed By: #### 2 4321-2 ####MISSAEL LAY ([id number])[facility] ([facility])[address] [place] [address] Sodium [Moles/Vol] 129 mmol/L Low 136-145 [facility] Comment on above: Result Comment: Revi ewed with previous results Performed By: #### 2 4321-2 ####MISSAEL LAY ([id number])[facility] ([facility])[address] [place] [address] Urea nitrogen [Mass/Vol] 20 mg/dL Normal 6-23 [facility] Comment on above: Performed By: #### 2 4321-2 ####MISSAEL LAY ([id number])[facility] ([facility])[address] [place] [address] 85020 CBC panel Auto (Bld)on 09-24 Erythrocyte distribution width (RBC) [Ratio] 13.2 % 11.5 - 14.5 % [facility] Hematocrit (Bld) [Volume fraction] 32.9 % Low 36.0 - 46.0 % [facility] Hemoglobin (Bld) [Mass/Vol] 11.0 g/dL Low 12.0 - 16.0 g/dL [facility] Interpretation and review of laboratory results Abnormal [facility] MCH (RBC) [Entitic mass] 32.3 pg 26.0 - 34.0 pg [facility] MCHC (RBC) [Mass/Vol] 33.4 g/dL 32.0 - 36.0 g/dL [facility] MCV (RBC) [Entitic vol] 97 fL 80 - 100 fL [facility] Nucleated RBC/100 WBC (Bld) [Ratio] 0.0 % [facility] Platelets (Bld) [#/Vol] 235 10*3/uL [facility] RBC (Bld) [#/Vol] 3.41 10*6/uL [facility] WBC (Bld) [#/Vol] 12.2 10*3/uL [facility] Erythrocyte distribution width (RBC) [Ratio] 13.2 % Normal 11.5-14.5 [facility] Comment on above: Performed By: #### 5 8410-2 ####MISSAEL LAY ([id number])[facility] ([facility])[address] [place] [address] 37350 Hematocrit (Bld) [Volume fraction] 32.9 % Low 36.0-46.0 [facility] Comment on above: Performed By: #### 5 8410-2 ####MISSAEL LAY ([id number])[facility] ([facility])[address] [place] [address] 88643 Hemoglobin (Bld) [Mass/Vol] 11.0 g/dL Low 12.0-16.0 [facility] Comment on above: Performed By: #### 5 8410-2 ####MISSAEL LAY ([id number])[facility] ([facility])[address] [place] [address] 18837 MCH (RBC) [Entitic mass] 32.3 pg Normal 26.0-34.0 [facility] Comment on above: Performed By: #### 5 8410-2 ####MISSAEL LAY ([id number])[facility] ([facility])[address] [place] [address] 84334 MCHC (RBC) [Mass/Vol] 33.4 g/dL Normal 32.0-36.0 [facility] Comment on above: Performed By: #### 5 8410-2 ####MISSAEL LAY ([id number])[facility] ([facility])[address] [place] [address] 91023 MCV (RBC) [Entitic vol] 97 fL Normal 80-100 [facility] Comment on above: Performed By: #### 5 8410-2 ####MISSAEL LAY ([id number])[facility] ([facility])[address] [place] [address] 55827 Nucleated RBC/100 WBC (Bld) [Ratio] 0.0 /100 WBCs Normal 0.0-0.0 [facility] Comment on above: Performed By: #### 5 8410-2 ####MISSAEL LAY ([id number])[facility] ([facility])[address] [place] [address] 13286 Platelets (Bld) [#/Vol] 235 x10*3/uL Normal 150-450 [facility] Comment on above: Performed By: #### 5 8410-2 ####MISSAEL LAY ([id number])[facility] ([facility])[address] [place] [address] 45867 RBC (Bld) [#/Vol] 3.41 x10*6/uL Low 4.00-5.20 [facility] Comment on above: Performed By: #### 5 8410-2 ####MISSAEL LAY ([id number])[facility] ([facility])[address] [place] [address] 44878 WBC (Bld) [#/Vol] 12.2 x10*3/uL High 4.4-11.3 [facility] Comment on above: Performed By: #### 5 8410-2 ####MISSAEL LAY ([id number])[facility] ([facility])[address] [place] [address] 31951 CBC panel Auto (Bld)on 09-23 Erythrocyte distribution width (RBC) [Ratio] 13.2 % 11.5 - 14.5 % [facility] Hematocrit (Bld) [Volume fraction] 35.2 % Low 36.0 - 46.0 % [facility] Hemoglobin (Bld) [Mass/Vol] 11.6 g/dL Low 12.0 - 16.0 g/dL [facility] Interpretation and review of laboratory results Abnormal [facility] MCH (RBC) [Entitic mass] 31.5 pg 26.0 - 34.0 pg [facility] MCHC (RBC) [Mass/Vol] 33.0 g/dL 32.0 - 36.0 g/dL [facility] MCV (RBC) [Entitic vol] 96 fL 80 - 100 fL [facility] Nucleated RBC/100 WBC (Bld) [Ratio] 0.0 % [facility] Platelets (Bld) [#/Vol] 263 10*3/uL [facility] RBC (Bld) [#/Vol] 3.68 10*6/uL Low Unive [facility] WBC (Bld) [#/Vol] 11.7 10*3/uL High Unive [facility] Erythrocyte distribution width (RBC) [Ratio] 13.2 % Normal 11.5-14.5 [facility] Comment on above: Performed By: #### 5 8410-2 ####MISSAEL LAY ([id number])[facility] ([facility])[address] [place] [address] 91019 Hematocrit (Bld) [Volume fraction] 35.2 % Low 36.0-46.0 [facility] Comment on above: Performed By: #### 5 8410-2 ####MISSAEL LAY ([id number])[facility] ([facility])[address] [place] [address] 50372 Hemoglobin (Bld) [Mass/Vol] 11.6 g/dL Low 12.0-16.0 [facility] Comment on above: Performed By: #### 5 8410-2 ####MISSAEL LAY ([id number])[facility] ([facility])[address] [place] [address] 23100 MCH (RBC) [Entitic mass] 31.5 pg Normal 26.0-34.0 [facility] Comment on above: Performed By: #### 5 8410-2 ####MISSAEL LAY ([id number])[facility] ([facility])[address] [place] [address] 15235 MCHC (RBC) [Mass/Vol] 33.0 g/dL Normal 32.0-36.0 [facility] Comment on above: Performed By: #### 5 8410-2 ####MISSAEL LAY ([id number])[facility] ([facility])[address] [place] [address] 23694 MCV (RBC) [Entitic vol] 96 fL Normal 80-100 [facility] Comment on above: Performed By: #### 5 8410-2 ####MISSAEL LAY ([id number])[facility] ([facility])[address] [place] [address] 74362 Nucleated RBC/100 WBC (Bld) [Ratio] 0.0 /100 WBCs Normal 0.0-0.0 [facility] Comment on above: Performed By: #### 5 8410-2 ####MISSAEL LAY ([id number])[facility] ([facility])[address] [place] [address] 55544 Platelets (Bld) [#/Vol] 263 x10*3/uL Normal 150-450 [facility] Comment on above: Performed By: #### 5 8410-2 ####MISSAEL LAY ([id number])[facility] ([facility])[address] [place], [place] [phone] RBC (Bld) [#/Vol] 3.68 x10*6/uL Low 4.00-5.20 [facility] Comment on above: Performed By: #### 5 8410-2 ####MISSAEL LAY ([id number])[facility] ([facility])[address] [place] [address] 43291 WBC (Bld) [#/Vol] 11.7 x10*3/uL High 4.4-11.3 [facility] Comment on above: Performed By: #### 5 8410-2 ####MISSAEL LAY ([id number])[facility] ([facility])[address] [place] [id number] Comprehensive metabolic 2000 panelon 09-23-2024 Albumin BCP dye [Mass/Vol] 2.9 g/dL Low 3.4 - 5.0 g/dL [facility] ALP [Catalytic activity/Vol] 48 U/L 33 - 136 U/L [facility] ALT With P-5'-P [Catalytic activity/Vol] 14 U/L 7 - 45 U/L [facility] Comment on above: Patients treated wit h Sulfasalazine may generate falsely decreased results for ALT. Anion gap [Moles/Vol] 9 mmol/L Low 10 - 2 0 mmol/L [facility] AST With P-5'-P [Catalytic activity/Vol] 11 U/L 9 - 39 U/L [facility] Bilirubin [Mass/Vol] 0.6 mg/dL 0.0 - 1 .2 mg/dL [facility] Calcium [Mass/Vol] 8.1 mg/dL Low 8.6 - 10. 3 mg/dL [facility] Chloride [Moles/Vol] 101 mmol/L 98 - 10 7 mmol/L [facility] CO2 [Moles/Vol] 23 mmol/L 21 - 32 mmol/L [facility] Creatinine [Mass/Vol] 0.58 mg/dL 0.50 - 1.05 mg/dL [facility] eGFR - PINF [facility] Comment on above: Calculations of ernesto mated GFR are performed using the 2020 CKD-EPI Study Refit equation without the race variable for the IDMS-Traceable creatinine methods. https://jasn.asnjournals.org/content/early/ASN.99932 63200 Glucose [Mass/Vol] 115 mg/dL High 74 - 99 mg/dL [facility] Interpretation and review of laboratory results Abnormal [facility] Potassium [Moles/Vol] 4.1 mmol/L 3.5 - 5.3 mmol/L [facility] Protein [Mass/Vol] 5.3 g/dL Low 6.4 - 8.2 g/dL [facility] Sodium [Moles/Vol] 129 mmol/L Low 136 - 145 mmol/L [facility] Comment on above: Reviewed with previo us results Urea nitrogen [Mass/Vol] 18 mg/dL 6 - 23 mg/dL [facility] Albumin BCP dye [Mass/Vol] 2.9 g/dL Low 3.4-5.0 [facility] Comment on above: Performed By: #### 2 4323-8 ####CANAS ALIREZA ([id number])[facility] ([facility])[address] [place] [address] ALP [Catalytic activity/Vol] 48 U/L Normal 33-136 [facility] Comment on above: Performed By: #### 2 432-8 ####MISSAEL LAY ([id number])[facility] ([facility])[address] [place] [address] ALT With P-5'-P [Catalytic activity/Vol] 14 U/L Normal 7-45 [facility] Comment on above: Result Comment: Addie ents treated with Sulfasalazine may generate falsely decreased results for ALT. Performed By: #### 2 432-8 ####MISSAEL LAY ([id number])[facility] ([facility])[address] [place] [address] Anion gap [Moles/Vol] 9 mmol/L Low 10-20 [facility] Comment on above: Performed By: #### 2 4322-8 ####MISSAEL LAY ([id number])[facility] ([facility])[address] [place] [address] AST With P-5'-P [Catalytic activity/Vol] 11 U/L Normal 9-39 [facility] Comment on above: Performed By: #### 2 432-8 ####MISSAEL LAY ([id number])[facility] ([facility])[address] [place] [address] Bilirubin [Mass/Vol] 0.6 mg/dL Normal 0.0-1.2 [facility] Comment on above: Performed By: #### 2 432-8 ####MISSAEL LAY ([id number])[facility] ([facility])[address] [place] [address] Calcium [Mass/Vol] 8.1 mg/dL Low 8.6-10.3 [facility] Comment on above: Performed By: #### 2 4323-8 ####MISSAEL LAY ([id number])[facility] ([facility])[address] [place] [address] Chloride [Moles/Vol] 101 mmol/L Normal 98-107 [facility] Comment on above: Performed By: #### 2 4323-8 ####MISSAEL LAY ([id number])[facility] ([facility])[address] [place] [address]206 CO2 [Moles/Vol] 23 mmol/L Normal 21-32 [facility] Comment on above: Performed By: #### 2 4323-8 ####MISSAEL LAY ([id number])[facility] ([facility])[address] [place] [address]70[address] Creatinine [Mass/Vol] 0.58 mg/dL Normal 0.50-1.05 [facility] Comment on above: Performed By: #### 2 4323-8 ####MISSAEL LAY ([id number])[facility] ([facility])[address] [place] [address]3343 Glomerular filtration rate >90 Normal >60 [facility] Comment on above: Result Comment: Calc ulations of estimated GFR are performed using the 2020 CKD-EPI Study Refit equation without the race variable for the IDMS-Traceable creatinine methods. https://jasn.asnjournals.org/content//ASN.90595 97873 Performed By: #### 2 4323-8 ####MISSAEL LAY ([id number])[facility] ([facility])[address] [place] [address]1583 Glucose [Mass/Vol] 115 mg/dL High 74-99 [facility] Comment on above: Performed By: #### 2 4323-8 ####MISSAEL LAY ([id number])[facility] ([facility])[address] [place] [address] 82328 Potassium [Moles/Vol] 4.1 mmol/L Normal 3.5-5.3 [facility] Comment on above: Performed By: #### 2 4323-8 ####MISSAEL LAY ([id number])[facility] ([facility])[address] [place] [address] 62162 Protein [Mass/Vol] 5.3 g/dL Low 6.4-8.2 [facility] Comment on above: Performed By: #### 2 4323-8 ####MISSAEL LAY ([id number])[facility] ([facility])[address] [place] [address]507 Sodium [Moles/Vol] 129 mmol/L Low 136-145 [facility] Comment on above: Result Comment: Revi ewed with previous results Performed By: #### 2 4323-8 ####MISSAEL LAY ([id number])[facility] ([facility])[address] [place] [address] 25954 Urea nitrogen [Mass/Vol] 18 mg/dL Normal 6- [facility] Comment on above: Performed By: #### 2 4323-8 ####MISSAEL LAY ([id number])[facility] ([facility])[address] [place], [place] [id number] ECG 12 LeadOrdered By: Gertrudis Haji on 09-23-2024 Atrial Rate 76 BPM [facility] Work Phone: P Essex 82 degrees [facility] Work Phone: [phone] 98 P Offset 227 [facility] Work Phone: 1828-08 98 P Onset 151 [facility] Work Phone: 1828-08 98 MA Interval 158 ms [facility] Work Phone: 1828-08 98 Q Onset 230 ms [facility] Work Phone: QRS Count 12 beats [facility] Work Phone: [phone] QRS Duration 76 ms [facility] Work Phone: [phone] 98 QT Interval 368 [facility] Work Phone: [phone] 98 QTC Calculation(Bazett) 414 [facility] Work Phone: [phone] 98 QTC Fredericia 398 [facility] Work Phone: R Essex 82 degrees [facility] Work Phone: T Essex 88 degrees [facility] Work Phone: T Offset 414 ms [facility] Work Phone: Ventricular Rate 76 BPM [facility] Work Phone: [facility] Work Phone: ECG 12 Leadon 09-23-2024 Normal sinus rhythm Low voltage QRS Cannot rule out Anterior infarct , age undetermined Abnormal ECG No previous ECGs available See ED provider note for full interpretation and clinical correlation Confirmed by Gertrudis Haji ([id number]) on 09/23/2024 10:39:32 AM Gertrudis Lucas PA-C - 09/23/2024 Normal sinus rhythm Low voltage QRS Cannot rule out Anterior infarct , age undetermined Abnormal ECG No previous ECGs available See ED provider note for full interpretation and clinical correlation Confirmed by Gertrudis Haji ([id number]) on 09/23/2024 10:39:32 AM [facility] Work Phone: Extra Urine Hughes Tubeon 08-28 Extra Tube [facility] Work Phone: [facility] Work Phone: Observationon 09-23-2024 Osmolality (U) [Osmolality] 607 mosm/kg Normal 200-1200 [facility] Comment on above: Performed By: #### 2 695-5 ####ADELE Esposito ([id number])[facility] ([facility])[address] [place] [address] Osmolality (U) [Osmolality]O rdered By: Brianne Mazariegos on 09-23-2024 Interpretation and review of laboratory results Normal [facility] Osmolality, urineOrdered By: Brianne Mazariegos on 09-23-2024 Osmolality (U) [Osmolality] 607 mosm/kg [facility] SST TOPOrdered By: Hernando Casey ma on 09-23-2024 Extra Tube Hold for add-ons. [facility] Work Phone: Comment on above: Auto resulted. [facility] Work Phone: Sodiumon 09-23-2024 Sodium (U) [Moles/Vol] 55 mmol/L Normal Un [facility] Comment on above: Performed By: #### 2 955-3 ####ADELE Esposito ([id number])[facility] ([facility])[address] [place] [address] Sodium (U) [Moles/Vol]on Creatinine (U) [Mass/Vol] 110.4 mg/dL 20.0 - 320.0 mg/dL [facility] Sodium/Creatinine (U) [Ratio] 50 Not established. mmol/g Creat [facility] Creatinine (U) [Mass/Vol] 110.4 mg/dL Normal 20.0-320.0 [facility] Comment on above: Performed By: #### 2 955-3 ####ADELE Esposito ([id number])[facility] ([facility])[address] [place] [address] Sodium/Creatinine (U) [Ratio] 50 mmol/g Creat Normal Not established. [facility] Comment on above: Performed By: #### 2 955-3 ####ADELE Esposito ([id number])[facility] ([facility])[address] [place] [address] Sodium, Urine Randomon 09-23 Sodium (U) [Moles/Vol] 55 mmol/L Un [facility] TSHon 09-23-2024 TSH Qn 1.12 m[IU]/L [facility] TSH Qnon 09-23-2024 Interpretation and review of laboratory results Normal [facility] TSH testing is perfo rmed using different testing methodology at [facility] than at other [facility]. Direct result comparisons should only be made within the same method. [facility] Thyrotropinon 09-23-2024 TSH Qn 1.12 m[IU]/L Normal 0.44-3.98 [facility] Comment on above: Order Comment: TSH t esting is performed using different testing methodology at [facility] than at other [facility]. Direct result comparisons should only be made within the same method. Performed By: #### 3 016-3 ####MISSAEL LAY ([id number])[facility] ([facility])[address] [place] [address] CBC panel Auto (Bld)on 09-22 Erythrocyte distribution width (RBC) [Ratio] 12.7 % 11.5 - 14.5 % [facility] Hematocrit (Bld) [Volume fraction] 33.8 % Low 36.0 - 46.0 % [facility] Hemoglobin (Bld) [Mass/Vol] 11.8 g/dL Low 12.0 - 16.0 g/dL [facility] Interpretation and review of laboratory results Abnormal [facility] MCH (RBC) [Entitic mass] 32.3 pg 26.0 - 34.0 pg [facility] MCHC (RBC) [Mass/Vol] 34.9 g/dL 32.0 - 36.0 g/dL [facility] MCV (RBC) [Entitic vol] 93 fL 80 - 100 fL [facility] Nucleated RBC/100 WBC (Bld) [Ratio] 0.0 % [facility] Platelets (Bld) [#/Vol] 240 10*3/uL [facility] RBC (Bld) [#/Vol] 3.65 10*6/uL Low Unive [facility] WBC (Bld) [#/Vol] 12.1 10*3/uL High Unive [facility] Erythrocyte distribution width (RBC) [Ratio] 12.7 % Normal 11.5-14.5 [facility] Comment on above: Performed By: #### 5 8410-2 ####MISSAEL LAY ([id number])[facility] ([facility])[address] [place] [address] Hematocrit (Bld) [Volume fraction] 33.8 % Low 36.0-46.0 [facility] Comment on above: Performed By: #### 5 8410-2 ####MISSAEL LAY ([id number])[facility] ([facility])[address] [place] [address] 34252 Hemoglobin (Bld) [Mass/Vol] 11.8 g/dL Low 12.0-16.0 [facility] Comment on above: Performed By: #### 5 8410-2 ####MISSAEL LAY ([id number])[facility] ([facility])[address] [place] [address] 73479 MCH (RBC) [Entitic mass] 32.3 pg Normal 26.0-34.0 [facility] Comment on above: Performed By: #### 5 8410-2 ####MISSAEL LAY ([id number])[facility] ([facility])[address] [place] [address] 95659 MCHC (RBC) [Mass/Vol] 34.9 g/dL Normal 32.0-36.0 [facility] Comment on above: Performed By: #### 5 8410-2 ####MISSAEL LAY ([id number])[facility] ([facility])[address] [place] [address] 68777 MCV (RBC) [Entitic vol] 93 fL Normal 80-100 [facility] Comment on above: Performed By: #### 5 8410-2 ####MISSAEL LAY ([id number])[facility] ([facility])[address] [place] [address] 55003 Nucleated RBC/100 WBC (Bld) [Ratio] 0.0 /100 WBCs Normal 0.0-0.0 [facility] Comment on above: Performed By: #### 5 8410-2 ####MISSAEL LAY ([id number])[facility] ([facility])[address] [place] [address] 31053 Platelets (Bld) [#/Vol] 240 x10*3/uL Normal 150-450 [facility] Comment on above: Performed By: #### 5 8410-2 ####MISSAEL LAY ([id number])[facility] ([facility])[address] [place] [address] 60615 RBC (Bld) [#/Vol] 3.65 x10*6/uL Low 4.00-5.20 [facility] Comment on above: Performed By: #### 5 8410-2 ####MISSAEL LAY ([id number])[facility] ([facility] [place] [address] WBC (Bld) [#/Vol] 12.1 x10*3/uL High 4.4-11.3 [facility] Comment on above: Performed By: #### 5 8410-2 ####IMSSAEL LAY ([id number])[facility] ([facility] [place] [address] Comprehensive metabolic 2000 panelon 09-22-2024 Albumin BCP dye [Mass/Vol] 3.2 g/dL Low 3.4 - 5.0 g/dL [facility] ALP [Catalytic activity/Vol] 55 U/L 33 - 136 U/L [facility] ALT With P-5'-P [Catalytic activity/Vol] 15 U/L 7 - 45 U/L [facility] Comment on above: Patients treated wit h Sulfasalazine may generate falsely decreased results for ALT. Anion gap [Moles/Vol] 8 mmol/L Low 10 - 2 0 mmol/L [facility] AST With P-5'-P [Catalytic activity/Vol] 14 U/L 9 - 39 U/L [facility] Bilirubin [Mass/Vol] 0.8 mg/dL 0.0 - 1 .2 mg/dL [facility] Calcium [Mass/Vol] 7.8 mg/dL Low 8.6 - 10. 3 mg/dL [facility] Chloride [Moles/Vol] 94 mmol/L Low 98 - 10 7 mmol/L [facility] CO2 [Moles/Vol] 23 mmol/L 21 - 32 mmol/L [facility] Creatinine [Mass/Vol] 0.56 mg/dL 0.50 - 1.05 mg/dL [facility] eGFR - PINF [facility] Comment on above: Calculations of ernesto mated GFR are performed using the 2020 CKD-EPI Study Refit equation without the race variable for the IDMS-Traceable creatinine methods. https://jasn.asnjournals.org/content//ASN.34737 01809 Glucose [Mass/Vol] 116 mg/dL High 74 - 99 mg/dL [facility] Interpretation and review of laboratory results Abnormal [facility] Potassium [Moles/Vol] 4.0 mmol/L 3.5 - 5.3 mmol/L [facility] Protein [Mass/Vol] 5.6 g/dL Low 6.4 - 8.2 g/dL [facility] Sodium [Moles/Vol] 121 mmol/L Low 136 - 145 mmol/L [facility] Urea nitrogen [Mass/Vol] 12 mg/dL 6 - 23 mg/dL [facility] Albumin BCP dye [Mass/Vol] 3.2 g/dL Low 3.4-5.0 [facility] Comment on above: Performed By: #### 2 4323-8 ####MISSAEL LAY ([id number])[facility] ([facility])[address] [place] [address] ALP [Catalytic activity/Vol] 55 U/L Normal 33-136 [facility] Comment on above: Performed By: #### 2 4323-8 ####MISSAEL LAY ([id number])[facility] ([facility])[address] [place] [address] ALT With P-5'-P [Catalytic activity/Vol] 15 U/L Normal 7-45 [facility] Comment on above: Result Comment: Addie ents treated with Sulfasalazine may generate falsely decreased results for ALT. Performed By: #### 2 4323-8 ####MISSAEL LAY ([id number])[facility] ([facility])[address] [place] [address] 68334 Anion gap [Moles/Vol] 8 mmol/L Low 10-20 [facility] Comment on above: Performed By: #### 2 4323-8 ####MISSAEL LAY ([id number])[facility] ([facility])[address] [place] [address] 70301 AST With P-5'-P [Catalytic activity/Vol] 14 U/L Normal 9-39 [facility] Comment on above: Performed By: #### 2 4323-8 ####MISSAEL LAY ([id number])[facility] ([facility])[address] [place] [address] 07211 Bilirubin [Mass/Vol] 0.8 mg/dL Normal 0.0-1.2 [facility] Comment on above: Performed By: #### 2 4323-8 ####MISSAEL LAY ([id number])[facility] ([facility])[address] [place] [address] 46229 Calcium [Mass/Vol] 7.8 mg/dL Low 8.6-10.3 [facility] Comment on above: Performed By: #### 2 4323-8 ####MISSAEL LAY ([id number])[facility] ([facility])[address] [place] [address] 82267 Chloride [Moles/Vol] 94 mmol/L Low 98-107 [facility] Comment on above: Performed By: #### 2 4323-8 ####MISSAEL LAY ([id number])[facility] ([facility])[address] [place] [address] 94455 CO2 [Moles/Vol] 23 mmol/L Normal 21-32 [facility] Comment on above: Performed By: #### 2 4323-8 ####MISSAEL LAY ([id number])[facility] ([facility])[address] [place] [address] 49844 Creatinine [Mass/Vol] 0.56 mg/dL Normal 0.50-1.05 [facility] Comment on above: Performed By: #### 2 4323-8 ####MISSAEL LAY ([id number])[facility] ([facility])[address] [place] [address] 59221 Glomerular filtration rate >90 Normal >60 [facility] Comment on above: Result Comment: Calc ulations of estimated GFR are performed using the 2020 CKD-EPI Study Refit equation without the race variable for the IDMS-Traceable creatinine methods. https://jasn.asnjournals.org/content//ASN.28218 22960 Performed By: #### 2 4323-8 ####MISSAEL LAY ([id number])[facility] ([facility])[address] [place] [address] 08383 Glucose [Mass/Vol] 116 mg/dL High 74-99 [facility] Comment on above: Performed By: #### 2 4323-8 ####MISSAEL LAY ([id number])[facility] ([facility])[address] [place] [address] 11759 Potassium [Moles/Vol] 4.0 mmol/L Normal 3.5-5.3 [facility] Comment on above: Performed By: #### 2 4323-8 ####MISSAEL LAY ([id number])[facility] ([facility])[address] [place] [address] 37595 Protein [Mass/Vol] 5.6 g/dL Low 6.4-8.2 [facility] Comment on above: Performed By: #### 2 4323-8 ####MISSAEL LAY ([id number])[facility] ([facility])[address] [place] [address] 82336 Sodium [Moles/Vol] 121 mmol/L Low 136-145 [facility] Comment on above: Performed By: #### 2 4323-8 ####MISSAEL LAY ([id number])[facility] ([facility])[address] [place] [address] 74943 Urea nitrogen [Mass/Vol] 12 mg/dL Normal 6-23 [facility] Comment on above: Performed By: #### 2 4323-8 ####MISSAEL LAY ([id number])[facility] ([facility])[address] [place] [address] 96208 Magnesiumon 09-22-2024 Magnesium [Mass/Vol] 1.72 mg/dL 1.60 - 2.40 mg/dL [facility] Magnesium [Mass/Vol] 1.72 mg/dL Normal 1.60-2.40 [facility] Comment on above: Performed By: #### 1 9123-9 ####CANAS ALIREZA ([id number])[facility] ([facility])[address] [place] [address] Magnesium [Mass/Vol]on 09-22 Interpretation and review of laboratory results Normal [facility] CBC W Auto Differential pane l (Bld)on 09-21-2024 Basophils (Bld) [#/Vol] 0.02 10*3/uL [facility] Basophils/100 WBC (Bld) 0.2 % 0.0 - 2.0 % [facility] Eosinophils (Bld) [#/Vol] 0.03 10*3/uL [facility] Eosinophils/100 WBC (Bld) 0.2 % 0.0 - 6.0 % [facility] Erythrocyte distribution width (RBC) [Ratio] 12.5 % 11.5 - 14.5 % [facility] Hematocrit (Bld) [Volume fraction] 36.6 % 36.0 - 46.0 % [facility] Hemoglobin (Bld) [Mass/Vol] 13.0 g/dL 12.0 - 16.0 g/dL [facility] Immature granulocytes (Bld) [#/Vol] 0.11 10*3/uL [facility] Immature granulocytes/100 WBC (Bld) 0.9 % 0.0 - 0.9 % [facility] Comment on above: Immature Granulocyte Count (IG) includes promyelocytes, myelocytes and metamyelocytes but does not include bands. Percent differential counts (%) should be interpreted in the context of the absolute cell counts (cells/UL). Interpretation and review of laboratory results Abnormal [facility] Lymphocytes (Bld) [#/Vol] 1.11 10*3/uL [facility] Lymphocytes/100 WBC (Bld) 9.2 % 13.0 - 44.0 % [facility] MCH (RBC) [Entitic mass] 32.0 pg 26.0 - 34.0 pg [facility] MCHC (RBC) [Mass/Vol] 35.5 g/dL 32.0 - 36.0 g/dL [facility] MCV (RBC) [Entitic vol] 90 fL 80 - 100 fL [facility] Monocytes (Bld) [#/Vol] 0.86 10*3/uL High [facility] Monocytes/100 WBC (Bld) 7.2 % 2.0 - 10.0 % [facility] Neutrophils (Bld) [#/Vol] 9.89 10*3/uL High [facility] Comment on above: Percent differential counts (%) should be interpreted in the context of the absolute cell counts (cells/uL). Neutrophils/100 WBC (Bld) 82.3 % 40.0 - 80.0 % [facility] Nucleated RBC/100 WBC (Bld) [Ratio] 0.0 % [facility] Platelets (Bld) [#/Vol] 264 10*3/uL [facility] RBC (Bld) [#/Vol] 4.06 10*6/uL [facility] WBC (Bld) [#/Vol] 12.0 10*3/uL High [facility] Basophils (Bld) [#/Vol] 0.02 x10*3/uL Normal 0.00-0.10 [facility] Comment on above: Performed By: #### 5 7021-8 #### MISSAEL LAY ([id number]) [facility] ([facility]) [address] [place] [address] 41312 Basophils/100 WBC (Bld) 0.2 % Normal 0.0-2.0 [facility] Comment on above: Performed By: #### 5 7021-8 #### MISSAEL LAY ([id number]) [facility] ([facility]) [facility] [place] [address] Eosinophils (Bld) [#/Vol] 0.03 x10*3/uL Normal 0.00-0.40 [facility] Comment on above: Performed By: #### 5 7021-8 #### MISSAEL LAY ([id number]) [facility] ([facility]) [facility] [place] [address] Eosinophils/100 WBC (Bld) 0.2 % Normal 0.0-6.0 [facility] Comment on above: Performed By: #### 5 7021-8 #### MISSAEL LAY ([id number]) [facility] ([facility]) [address] [place] [address] Erythrocyte distribution width (RBC) [Ratio] 12.5 % Normal 11.5-14.5 [facility] Comment on above: Performed By: #### 5 7021-8 #### MISSAEL LAY ([id number]) [facility] ([facility]) [address] [place] [address] Hematocrit (Bld) [Volume fraction] 36.6 % Normal 36.0-46.0 [facility] Comment on above: Performed By: #### 5 7021-8 #### MISSAEL LAY ([id number]) [facility] ([facility]) [address] [place] [address] Hemoglobin (Bld) [Mass/Vol] 13.0 g/dL Normal 12.0-16.0 [facility] Comment on above: Performed By: #### 5 7021-8 #### MISSAEL LAY ([id number]) [facility] ([facility]) [address] [place], [place] [address] Immature granulocytes (Bld) [#/Vol] 0.11 x10*3/uL Normal 0.00-0.50 [facility] Comment on above: Performed By: #### 5 7021-8 #### MISSAEL LAY ([id number]) [facility] ([facility]) [address] [place], [place] [address] Immature granulocytes/100 WBC (Bld) 0.9 % Normal 0.0-0.9 [facility] Comment on above: Result Comment: Shiela ture Granulocyte Count (IG) includes promyelocytes, myelocytes and metamyelocytes but does not include bands. Percent differential counts (%) should be interpreted in the context of the absolute cell counts (cells/UL). Performed By: #### 5 7021-8 #### MISSAEL LAY ([id number]) [facility] ([facility]) [address] [place] [address] Lymphocytes (Bld) [#/Vol] 1.11 x10*3/uL Normal 0.80-3.00 [facility] Comment on above: Performed By: #### 5 7021-8 #### MISSAEL LAY ([id number]) [facility] ([facility]) [address] [place] [address] 98128 Lymphocytes/100 WBC (Bld) 9.2 % Normal 13.0-44.0 [facility] Comment on above: Performed By: #### 5 7021-8 #### MISSAEL LAY ([id number]) [facility] ([facility]) [address] [place] [address] 62116 MCH (RBC) [Entitic mass] 32.0 pg Normal 26.0-34.0 [facility] Comment on above: Performed By: #### 5 7021-8 #### MISSAEL LAY ([id number]) [facility] ([facility]) [address] [place] [address] [id number] MCHC (RBC) [Mass/Vol] 35.5 g/dL Normal 32.0-36.0 [facility] Comment on above: Performed By: #### 5 7021-8 #### MISSAEL LAY ([id number]) [facility] ([facility]) [address] [place] [address] 05635 MCV (RBC) [Entitic vol] 90 fL Normal 80-100 [facility] Comment on above: Performed By: #### 5 7021-8 #### MISSAEL LAY ([id number]) [facility] ([facility]) [address] [place] [address] 22279 Monocytes (Bld) [#/Vol] 0.86 x10*3/uL High 0.05-0.80 [facility] Comment on above: Performed By: #### 5 7021-8 #### MISSAEL LAY ([id number]) [facility] ([facility]) [address] [place] [address] 51156 Monocytes/100 WBC (Bld) 7.2 % Normal 2.0-10.0 [facility] Comment on above: Performed By: #### 5 7021-8 #### MISSAEL LAY ([id number]) [facility] ([facility]) [address] [place] [address] 16841 Neutrophils (Bld) [#/Vol] 9.89 x10*3/uL High 1.60-5.50 [facility] Comment on above: Result Comment: Perc ent differential counts (%) should be interpreted in the context of the absolute cell counts (cells/uL). Performed By: #### 5 7021-8 #### MISSAEL LAY ([id number]) [facility] ([facility]) [address] [place] [address] 71168 Neutrophils/100 WBC (Bld) 82.3 % Normal 40.0-80.0 [facility] Comment on above: Performed By: #### 5 7021-8 #### MISSAEL LAY ([id number]) [facility] ([facility]) [address] [place] [address] 65681 Nucleated RBC/100 WBC (Bld) [Ratio] 0.0 /100 WBCs Normal 0.0-0.0 [facility] Comment on above: Performed By: #### 5 7021-8 #### MISSAEL LAY ([id number]) [facility] ([facility]) [address] [place] [address] 55518 Platelets (Bld) [#/Vol] 264 x10*3/uL Normal 150-450 [facility] Comment on above: Performed By: #### 5 7021-8 #### MISSAEL LAY ([id number]) [facility] ([facility]) [address] [place] [address] 91614 RBC (Bld) [#/Vol] 4.06 x10*6/uL Normal 4.00-5.20 [facility] Comment on above: Performed By: #### 5 7021-8 #### MISSAEL LAY ([id number]) [facility] ([facility]) [address] [place] [address] 45243 WBC (Bld) [#/Vol] 12.0 x10*3/uL High 4.4-11.3 [facility] Comment on above: Performed By: #### 5 7021-8 #### CANAS ALIREZA ([id number]) [facility] ([facility]) [address] [place] [address] CT HEAD WO IV CONTRASTon CT HEAD WO IV CONTRAST Interpreted By: Igor Sharif, STUDY: CT HEAD WO IV CONTRAST; 09/21/2024 6:05 pm INDICATION: Signs/Symptoms:weakness. COMPARISON: None. ACCESSION NUMBER(S): [id number] ORDERING CLINICIAN: BLANCA ROJO TECHNIQUE: Noncontrast axial CT scan of head was performed. Angled reformats in brain and bone windows were generated. The images were reviewed in bone, brain, blood and soft tissue windows. FINDINGS: CSF Spaces: The ventricles, sulci and basal cisterns are within normal limits. There is no extraaxial fluid collection. Volume loss; frontal lobe predominant Parenchyma: The herring-white differentiation is intact. There is no mass effect or midline shift. There is no intracranial hemorrhage. Calvarium: The calvarium is unremarkable. Paranasal sinuses and mastoids: Bilateral mastoid opacification. Paranasal sinuses otherwise clear Vascular calcification IMPRESSION: No evidence of acute cortical infarct or intracranial hemorrhage. Frontal lobe predominant volume loss. Bilateral mastoid opacification MACRO: None Signed by: Igor Sharif 09/21/2024 6:47 PM Dictation workstation: [id number] [facility] CT Head WO contraston 2024 No evidence of acute cortical infarct or intracranial hemorrhage. Frontal lobe predominant volume loss. Bilateral mastoid opacification MACRO: None Signed by: Igor Sharif 09/21/2024 6:47 PM Dictation workstation: [id number] MMODAL Interpreted By: Igor Sharif, STUDY: CT HEAD WO IV CONTRAST; 09/21/2024 6:05 pm INDICATION: Signs/Symptoms:weakness. COMPARISON: None. ACCESSION NUMBER(S): [id number] ORDERING CLINICIAN: BLANCA ROJO TECHNIQUE: Noncontrast axial CT scan of head was performed. Angled reformats in brain and bone windows were generated. The images were reviewed in bone, brain, blood and soft tissue windows. FINDINGS: CSF Spaces: The ventricles, sulci and basal cisterns are within normal limits. There is no extraaxial fluid collection. Volume loss; frontal lobe predominant Parenchyma: The herring-white differentiation is intact. There is no mass effect or midline shift. There is no intracranial hemorrhage. Calvarium: The calvarium is unremarkable. Paranasal sinuses and mastoids: Bilateral mastoid opacification. Paranasal sinuses otherwise clear Vascular calcification [facility] MMODAL Igor Sharif MD - 09/21/2024 Interpreted By: Igor Sharif, STUDY: CT HEAD WO IV CONTRAST; 09/21/2024 6:05 pm INDICATION: Signs/Symptoms:weakness. COMPARISON: None. ACCESSION NUMBER(S): [id number] ORDERING CLINICIAN: BLANCA ROJO TECHNIQUE: Noncontrast axial CT scan of head was performed. Angled reformats in brain and bone windows were generated. The images were reviewed in bone, brain, blood and soft tissue windows. FINDINGS: CSF Spaces: The ventricles, sulci and basal cisterns are within normal limits. There is no extraaxial fluid collection. Volume loss; frontal lobe predominant Parenchyma: The herring-white differentiation is intact. There is no mass effect or midline shift. There is no intracranial hemorrhage. Calvarium: The calvarium is unremarkable. Paranasal sinuses and mastoids: Bilateral mastoid opacification. Paranasal sinuses otherwise clear Vascular calcification IMPRESSION: No evidence of acute cortical infarct or intracranial hemorrhage. Frontal lobe predominant volume loss. Bilateral mastoid opacification MACRO: None Signed by: Igor Sharif 09/21/2024 6:47 PM Dictation workstation: [id number] [facility] Work Phone: CT Head WO contrastOrdered B y: Igor Sharif on 09-21-2024 [facility] Work Phone: CT LUMBAR SPINE W IV CONTRAS Ton 09-21-2024 CT LUMBAR SPINE W IV CONTRAST Interpreted By: Igor Sharif, STUDY: CT LUMBAR SPINE W IV CONTRAST 09/21/2024 6:05 pm INDICATION: Signs/Symptoms:left leg weakness, sciatic type pain COMPARISON: None. ACCESSION NUMBER(S): [id number] ORDERING CLINICIAN: BLANCA ROJO TECHNIQUE: Axial CT images of the lumbar spine are obtained. Axial, coronal and sagittal reconstructions are provided for review. FINDINGS: Demineralized bones. Grade 1 anterolisthesis at L4-L5 with facet arthropathy and broad-based disc bulge. This causes mild spinal stenosis to about 8 mm with lateral recess stenosis. No evidence of acute fracture. Remaining levels are otherwise unremarkable with mild degenerative changes seen. No high-grade central canal or foraminal stenosis by CT criteria. Distended urinary bladder IMPRESSION: Degenerative changes most notable at L4-L5. Grade 1 degenerative anterolisthesis. If concern for nerve root impingement or other radiculopathy symptoms, consider MRI. Vascular calcification. Distended urinary bladder. No acute fracture. MACRO: None Signed by: Igor Sharif 09/21/2024 6:53 PM Dictation workstation: [id number] [facility] CT Lumbar spine W contrast I Von 09-21-2024 Degenerative changes most notable at L4-L5. Grade 1 degenerative anterolisthesis. If concern for nerve root impingement or other radiculopathy symptoms, consider MRI. Vascular calcification. Distended urinary bladder. No acute fracture. MACRO: None Signed by: Igor Sharif 09/21/2024 6:53 PM Dictation workstation: [id number] MMODAL Interpreted By: Igor Sharif, STUDY: CT LUMBAR SPINE W IV CONTRAST 09/21/2024 6:05 pm INDICATION: Signs/Symptoms:left leg weakness, sciatic type pain COMPARISON: None. ACCESSION NUMBER(S): [id number] ORDERING CLINICIAN: BLANCA ROJO TECHNIQUE: Axial CT images of the lumbar spine are obtained. Axial, coronal and sagittal reconstructions are provided for review. FINDINGS: Demineralized bones. Grade 1 anterolisthesis at L4-L5 with facet arthropathy and broad-based disc bulge. This causes mild spinal stenosis to about 8 mm with lateral recess stenosis. No evidence of acute fracture. Remaining levels are otherwise unremarkable with mild degenerative changes seen. No high-grade central canal or foraminal stenosis by CT criteria. Distended urinary bladder MMODAL Igor Sharif MD - 09/21/2024 Interpreted By: Igor Sharif, STUDY: CT LUMBAR SPINE W IV CONTRAST 09/21/2024 6:05 pm INDICATION: Signs/Symptoms:left leg weakness, sciatic type pain COMPARISON: None. ACCESSION NUMBER(S): [id number] ORDERING CLINICIAN: BLANCA ROJO TECHNIQUE: Axial CT images of the lumbar spine are obtained. Axial, coronal and sagittal reconstructions are provided for review. FINDINGS: Demineralized bones. Grade 1 anterolisthesis at L4-L5 with facet arthropathy and broad-based disc bulge. This causes mild spinal stenosis to about 8 mm with lateral recess stenosis. No evidence of acute fracture. Remaining levels are otherwise unremarkable with mild degenerative changes seen. No high-grade central canal or foraminal stenosis by CT criteria. Distended urinary bladder IMPRESSION: Degenerative changes most notable at L4-L5. Grade 1 degenerative anterolisthesis. If concern for nerve root impingement or other radiculopathy symptoms, consider MRI. Vascular calcification. Distended urinary bladder. No acute fracture. MACRO: None Signed by: Igor Sharif 09/21/2024 6:53 PM Dictation workstation: [id number] [facility] Work Phone: [facility] Work Phone: Coagulation surface inducedo n 09-21-2024 aPTT Coag (PPP) [Time] 21 s Low 26-36 [facility] Comment on above: Order Comment: The A PTT is no longer used for monitoring Unfractionated Heparin Therapy. For monitoring Heparin Therapy, use the Heparin Assay. Performed By: #### 1 4979-9 #### MISSAEL LAY ([id number]) [facility] ([facility]) [address] [place], [place] [id number] Coagulation tissue factor in ducedon 09-21-2024 PT Coag (PPP) [Time] 10.7 s Normal 9.8-12.4 [facility] Comment on above: Performed By: #### 5 902-2 #### MISSAEL LAY ([id number]) [facility] ([facility]) [address] [place] [address] 08923 Comprehensive metabolic 2000 panelon 09-21-2024 Albumin BCP dye [Mass/Vol] 3.7 g/dL 3.4 - 5.0 g/dL [facility] ALP [Catalytic activity/Vol] 61 U/L 33 - 136 U/L [facility] ALT With P-5'-P [Catalytic activity/Vol] 18 U/L 7 - 45 U/L [facility] Comment on above: Patients treated wit h Sulfasalazine may generate falsely decreased results for ALT. Anion gap [Moles/Vol] 10 mmol/L 10 - 2 0 mmol/L [facility] AST With P-5'-P [Catalytic activity/Vol] 14 U/L 9 - 39 U/L [facility] Bilirubin [Mass/Vol] 1.2 mg/dL 0.0 - 1 .2 mg/dL [facility] Calcium [Mass/Vol] 8.7 mg/dL 8.6 - 10. 3 mg/dL [facility] Chloride [Moles/Vol] 86 mmol/L Low 98 - 10 7 mmol/L [facility] CO2 [Moles/Vol] 25 mmol/L 21 - 32 mmol/L [facility] Creatinine [Mass/Vol] 0.80 mg/dL 0.50 - 1.05 mg/dL [facility] GFR/1.73 sq M.predicted among non-blacks MDRD (S/P/Bld) [Vol rate/Area] 76 mL/min/{1.73_m2} - PINF [facility] Comment on above: Calculations of ernesto mated GFR are performed using the 2020 CKD-EPI Study Refit equation without the race variable for the IDMS-Traceable creatinine methods. https://jasn.asnjournals.org/content/early/ASN.64508 36341 Glucose [Mass/Vol] 109 mg/dL High 74 - 99 mg/dL [facility] Interpretation and review of laboratory results Abnormal [facility] Potassium [Moles/Vol] 3.3 mmol/L Low 3.5 - 5.3 mmol/L [facility] Protein [Mass/Vol] 6.4 g/dL 6.4 - 8.2 g/dL [facility] Sodium [Moles/Vol] 118 mmol/L Critically low 136 - 1 45 mmol/L [facility] Comment on above: Confirmed by repeat analysis Urea nitrogen [Mass/Vol] 16 mg/dL 6 - 23 mg/dL [facility] Albumin BCP dye [Mass/Vol] 3.7 g/dL Normal 3.4-5.0 [facility] Comment on above: Performed By: #### 2 432-8 #### MISSAEL LAY ([id number]) [facility] ([facility]) [address] [place] [address] 06341 ALP [Catalytic activity/Vol] 61 U/L Normal 33-136 [facility] Comment on above: Performed By: #### 2 432-8 #### MISSAEL LAY ([id number]) [facility] ([facility]) [address] [place] [address] 52124 ALT With P-5'-P [Catalytic activity/Vol] 18 U/L Normal 7-45 [facility] Comment on above: Result Comment: Addie ents treated with Sulfasalazine may generate falsely decreased results for ALT. Performed By: #### 2 4322-8 #### MISSAEL LAY ([id number]) [facility] ([facility]) [address] [place] [address] 34557 Anion gap [Moles/Vol] 10 mmol/L Normal 10-20 [facility] Comment on above: Performed By: #### 2 4322-8 #### MISSAEL LAY ([id number]) [facility] ([facility]) [address] [place] [address] 08418 AST With P-5'-P [Catalytic activity/Vol] 14 U/L Normal 9-39 [facility] Comment on above: Performed By: #### 2 4322-8 #### MISSAEL LAY ([id number]) [facility] ([facility]) [address] [place] [address] 39634 Bilirubin [Mass/Vol] 1.2 mg/dL Normal 0.0-1.2 [facility] Comment on above: Performed By: #### 2 4322-8 #### MISSAEL LAY ([id number]) [facility] ([facility]) [address] [place] [address] 03879 Calcium [Mass/Vol] 8.7 mg/dL Normal 8.6-10.3 [facility] Comment on above: Performed By: #### 2 4322-8 #### MISSAEL LAY ([id number]) [facility] ([facility]) [address] [place] [address] Chloride [Moles/Vol] 86 mmol/L Low 98-107 [facility] Comment on above: Performed By: #### 2 4323-8 #### MISSAEL LAY ([id number]) [facility] ([facility]) [address] [place] [address] CO2 [Moles/Vol] 25 mmol/L Normal 21-32 [facility] Comment on above: Performed By: #### 2 4323-8 #### MISSAEL LAY ([id number]) [facility] ([facility]) [address] [place] [address] 05174 Creatinine [Mass/Vol] 0.80 mg/dL Normal 0.50-1.05 [facility] Comment on above: Performed By: #### 2 432-8 #### MISSAEL LAY ([id number]) [facility] ([facility]) [address] [place] [address] Glomerular filtration rate 76 mL/min/1.73m*2 Normal >60 [facility] Comment on above: Result Comment: Calc ulations of estimated GFR are performed using the 2020 CKD-EPI Study Refit equation without the race variable for the IDMS-Traceable creatinine methods. https://jasn.asnjournals.org/content//ASN.64282 92110 Performed By: #### 2 4323-8 #### MISSAEL LAY ([id number]) [facility] ([facility]) [address] [place] [address] Glucose [Mass/Vol] 109 mg/dL High 74-99 [facility] Comment on above: Performed By: #### 2 4323-8 #### MISSAEL LAY ([id number]) [facility] ([facility]) [address] [place] [address] Potassium [Moles/Vol] 3.3 mmol/L Low 3.5-5.3 [facility] Comment on above: Performed By: #### 2 4323-8 #### MISSAEL LAY ([id number]) [facility] ([facility]) [address] [place] [address] Protein [Mass/Vol] 6.4 g/dL Normal 6.4-8.2 [facility] Comment on above: Performed By: #### 2 4323-8 #### MISSAEL LAY ([id number]) [facility] ([facility]) [address] [place] [address] Sodium [Moles/Vol] 118 mmol/L Critically low 136-145 [facility] Comment on above: Result Comment: Conf irmed by repeat analysis Performed By: #### 2 4323-8 #### MISSAEL LAY ([id number]) [facility] ([facility]) [address] [place] [address] Urea nitrogen [Mass/Vol] 16 mg/dL Normal 6-23 [facility] Comment on above: Performed By: #### 2 4323-8 #### MISSAEL LAY ([id number]) [facility] ([facility]) [address] [place] [address] ECG 12-LEADon 09-21-2024 ECG 12-LEAD Ventricular Rate 76 Atrial Rate 76 P-R Interval 158 QRS Duration 76 Q-T Interval 368 QTC Calculation(Bazett) 414 P Essex 82 R Essex 82 T Essex 88 QRS Count 12 Q Onset 230 P Onset 151 P Offset 227 T Offset 414 QTC Fredericia 398 Diagnosis Normal sinus rhythm Low voltage QRS Cannot rule out Anterior infarct , age undetermined Abnormal ECG No previous ECGs available See ED provider note for full interpretation and clinical correlation Confirmed by Gertrudis Haji ([id number]) on 09/23/2024 10:39:32 AM Normal [facility] Magnesiumon 09-21-2024 Magnesium [Mass/Vol] 1.87 mg/dL 1.60 - 2.40 mg/dL [facility] Magnesium [Mass/Vol] 1.87 mg/dL Normal 1.60-2.40 [facility] Comment on above: Performed By: #### 1 9123-9 #### MISSAEL LAY ([id number]) [facility] ([facility]) [address] [place] [address] Magnesium [Mass/Vol]on 09-21 Interpretation and review of laboratory results Normal [facility] No Panel Informationon 09-21 Radiology Study observation (narrative) [facility] Work Phone: No Panel InformationOrdered By: Veronica Bess on 09-21-2024 [facility] PT Coag (PPP) [Time]on 09-21 INR Coag (PPP) [Relative time] 1.0 {INR} 0.9 - 1.1 [facility] Work Phone: Interpretation and review of laboratory results Normal [facility] Work Phone: INR Coag (PPP) [Relative time] 1.0 Normal 0.9-1.1 [facility] Comment on above: Performed By: #### 5 902-2 #### MISSAEL LAY ([id number]) [facility] ([facility]) [address] [place] [place] [id number] Protime-INRon 09-21-2024 PT Coag (PPP) [Time] 10.7 s [facility] Work Phone: SARS coronavirus 2 RNAon SARS-CoV-2 (COVID-19) RNA COOPER+probe Ql (Resp) Not detected Normal Not Detected [facility] Comment on above: Order Comment: This assay is an FDA-cleared, in vitro diagnostic nucleic acid amplification test for the qualitative detection and differentiation of SARS CoV-2 from nasopharyngeal specimens collected from individuals with signs and symptoms of respiratory tract infections, and has been validated for use at [facility]. Negative results do not preclude COVID-19 infections and should not be used as the sole basis for diagnosis, treatment, or other management decisions. Testing for SARS CoV-2 is recommended only for patients who meet current clinical and/or epidemiological criteria defined by federal, state, or local public health directives. Performed By: #### 9 4500-6 ####MISSAEL LAY ([id number])[facility] ([facility])[address] [place] [address] SARS-CoV-2 (COVID-19) RNA NA A+probe Ql (Resp)on 09-21-2024 Interpretation and review of laboratory results Normal [facility] This assay is an FDA-cleared, in vitro diagnostic nucleic acid amplification test for the qualitative detection and differentiation of SARS CoV-2 from nasopharyngeal specimens collected from individuals with signs and symptoms of respiratory tract infections, and has been validated for use at [facility]. Negative results do not preclude COVID-19 infections and should not be used as the sole basis for diagnosis, treatment, or other management decisions. Testing for SARS CoV-2 is recommended only for patients who meet current clinical and/or epidemiological criteria defined by federal, state, or local public health directives. [facility] Sars-CoV-2 PCRon 09-21-2024 SARS-CoV-2 (COVID-19) RNA COOPER+probe Ql (Resp) Not detected Not Detected [facility] Tropinin I.cardiac panel Hig h sensitivity methodon 09-21-2024 Interpretation and review of laboratory results Normal [facility] Less than 99th percentile of normal range cutoff- Female and children under 18 years old <14 ng/L; Male <21 ng/L: Negative Repeat testing should be performed if clinically indicated. Female and children under 18 years old 14-50 ng/L; Male 21-50 ng/L: Consistent with possible cardiac damage and possible increased clinical risk. Serial measurements may help to assess extent of myocardial damage. >50 ng/L: Consistent with cardiac damage, increased clinical risk and myocardial infarction. Serial measurements may help assess extent of myocardial damage. NOTE: Children less than 1 year old may have higher baseline troponin levels and results should be interpreted in conjunction with the overall clinical context. NOTE: Troponin I testing is performed using a different testing methodology at [facility] than at other [facility]. Direct result comparisons should only be made within the same method. [facility] Interpretation and review of laboratory results Normal [facility] Less than 99th percentile of normal range cutoff- Female and children under 18 years old <14 ng/L; Male <21 ng/L: Negative Repeat testing should be performed if clinically indicated. Female and children under 18 years old 14-50 ng/L; Male 21-50 ng/L: Consistent with possible cardiac damage and possible increased clinical risk. Serial measurements may help to assess extent of myocardial damage. >50 ng/L: Consistent with cardiac damage, increased clinical risk and myocardial infarction. Serial measurements may help assess extent of myocardial damage. NOTE: Children less than 1 year old may have higher baseline troponin levels and results should be interpreted in conjunction with the overall clinical context. NOTE: Troponin I testing is performed using a different testing methodology at [facility] than at other [facility]. Direct result comparisons should only be made within the same method. [facility] Troponin I, High Sensitivity , Initialon 09-21-2024 Tropinin I.cardiac panel High sensitivity method 7 ng/L 0 - 13 ng/L [facility] Troponin I.cardiac panelon 0 09-21-2024 Tropinin I.cardiac panel High sensitivity method 7 ng/L Normal 0-13 [facility] Comment on above: Order Comment: Less than 99th percentile of normal range cutoff-Female and children under 18 years old <14 ng/L; Male <21 ng/L: NegativeRepeat testing should be performed if clinically indicated.Female and children under 18 years old 14-50 ng/L; Male 21-50 ng/L:Consistent with possible cardiac damage and possible increased clinicalrisk. Serial measurements may help to assess extent of myocardial damage.>50 ng/L: Consistent with cardiac damage, increased clinical risk andmyocardial infarction. Serial measurements may help assess extent ofmyocardial damage.NOTE: Children less than 1 year old may have higher baseline troponinlevels and results should be interpreted in conjunction with the overallclinical context.NOTE: Troponin I testing is performed using a differenttesting methodology at [facility] than at [facility]. Direct result comparisons should onlybe made within the same method. Performed By: #### 8 9577-1 ####CANAS AILREZA ([id number])[facility] ([facility])[address] [place] [address] Tropinin I.cardiac panel High sensitivity method 7 ng/L Normal 0-13 [facility] Comment on above: Order Comment: Less than 99th percentile of normal range cutoff- Female and children under 18 years old <14 ng/L; Male <21 ng/L: Negative Repeat testing should be performed if clinically indicated. Female and children under 18 years old 14-50 ng/L; Male 21-50 ng/L: Consistent with possible cardiac damage and possible increased clinical risk. Serial measurements may help to assess extent of myocardial damage. >50 ng/L: Consistent with cardiac damage, increased clinical risk and myocardial infarction. Serial measurements may help assess extent of myocardial damage. NOTE: Children less than 1 year old may have higher baseline troponin levels and results should be interpreted in conjunction with the overall clinical context. NOTE: Troponin I testing is performed using a different testing methodology at [facility] than at other [facility]. Direct result comparisons should only be made within the same method. Performed By: #### 8 9577-1 #### CANAS ALIREZA ([id number]) [facility] ([facility]) [address] [place] [address] Troponin, High Sensitivity, 1 Houron 09-21-2024 Tropinin I.cardiac panel High sensitivity method 7 ng/L 0 - 13 ng/L [facility] Urinalysis complete W Reflex Culture panel (U)on 09-21-2024 Appearance (U) Clear Clear [facility] Bilirubin (U) [Mass/Vol] Negative NEGATIVE mg/dL [facility] Color (U) Colorless Abnormal Light-Yellow , Yellow, Dark-Yellow [facility] Glucose Auto test strip (U) [Mass/Vol] Normal Normal mg/dL [facility] Interpretation and review of laboratory results Abnormal [facility] Ketones (U) [Mass/Vol] Negative NEGAT ARNOLD mg/dL [facility] Leukocyte esterase Auto test strip Ql (U) [facility] N[facility] Ql (U) Negative NEGATIVE [facility] pH (U) 6.5 [pH] 5.0, 5.5, 6.0, 6.5, 7.0, 7.5, 8.0 [facility] Protein (U) [Mass/Vol] Negative NEGAT ARNOLD, 10 (TRACE), 20 (TRACE) mg/dL [facility] RBC (U) [#/Vol] Negative NEGATIVE mg/dL [facility] Specific gravity (U) [Rel density] 1.009 1.005 - 1.035 [facility] Urobilinogen (U) [Mass/Vol] Normal Normal mg/dL [facility] Appearance (U) Clear Normal Clear [facility] Comment on above: Performed By: #### 5 8077-9 ####MISSAEL LAY ([id number])[facility] ([facility])[address] [place] [address] Bilirubin (U) [Mass/Vol] Negative Normal NEGATIVE [facility] Comment on above: Performed By: #### 5 8077-9 ####MISSAEL LAY ([id number])[facility] ([facility])[address] [place] [address] Color (U) Colorless Normal Light-Yellow , Yellow, Dark-Yellow [facility] Comment on above: Performed By: #### 5 8077-9 ####MISSAEL LAY ([id number])[facility] ([facility])[address] [place], [place] [address] Glucose Auto test strip (U) [Mass/Vol] Normal Normal Normal [facility] Comment on above: Performed By: #### 5 8077-9 ####MISSAEL LAY ([id number])[facility] ([facility])[address] [place] [address] Ketones (U) [Mass/Vol] Negative Normal NEGATIVE [facility] Comment on above: Performed By: #### 5 8077-9 ####MISSAEL LAY ([id number])[facility] ([facility])[address] [place], [place] [address] Leukocyte esterase Auto test strip Ql (U) Negative Normal NEGATIVE [facility] Comment on above: Performed By: #### 5 8077-9 ####MISSAEL LAY ([id number])[facility] ([facility])[address] [place], [place] [address] Nitrite Auto test strip Ql (U) Negative Normal NEGATIVE [facility] Comment on above: Performed By: #### 5 8077-9 ####MISSAEL LAY ([id number])[facility] ([facility])[address] [place] [address] pH (U) 6.5 [pH] Normal 5.0, 5.5, 6.0, 6.5, 7.0, 7.5, 8.0 [facility] Comment on above: Performed By: #### 5 8077-9 ####MISSAEL LAY ([id number])[facility] ([facility])[address] [place] [address] Protein (U) [Mass/Vol] Negative Normal NEGAT ARNOLD, 10 (TRACE), 20 (TRACE) [facility] Comment on above: Performed By: #### 5 8077-9 ####MISSAEL LAY ([id number])[facility] ([facility])[address] [place] [address] RBC (U) [#/Vol] Negative Normal NEGATIVE [facility] Comment on above: Performed By: #### 5 8077-9 ####MISSAEL LAY ([id number])[facility] ([facility])[address] [place] [address] Specific gravity (U) [Rel density] 1.009 Normal 1.005-1.035 [facility] Comment on above: Performed By: #### 5 8077-9 ####MISSAEL LAY ([id number])[facility] ([facility])[address] [place] [address] Urobilinogen (U) [Mass/Vol] Normal Normal Normal [facility] Comment on above: Performed By: #### 5 8077-9 ####MISSAEL LAY ([id number])[facility] ([facility])[address] [place], [place] [address] XR CHEST 1 VIEWon 09-21-2024 XR CHEST 1 VIEW Interpreted By: Dee Dee Durbin, STUDY: Chest, single AP view. INDICATION: Signs/Symptoms:Chest Pain. COMPARISON: None. ACCESSION NUMBER(S): [id number] ORDERING CLINICIAN: BLANCA ROJO FINDINGS: The cardiac silhouette size is within normal limits. There is no focal consolidation, edema or pneumothorax. No sizeable pleural effusion. No acute osseous abnormality. IMPRESSION: 1. No acute cardiopulmonary process. MACRO: None. Signed by: Dee Dee Durbin 09/21/2024 5:08 PM Dictation workstation: [id number] [facility] XR Chest Single viewon 09-21 1. No acute cardiopulmonary process. MACRO: None. Signed by: Dee Dee Durbin 09/21/2024 5:08 PM Dictation workstation: [id number] MMODAL Interpreted By: Dee Dee Durbin, STUDY: Chest, single AP view. INDICATION: Signs/Symptoms:Chest Pain. COMPARISON: None. ACCESSION NUMBER(S): [id number] ORDERING CLINICIAN: BLANCA ROJO FINDINGS: The cardiac silhouette size is within normal limits. There is no focal consolidation, edema or pneumothorax. No sizeable pleural effusion. No acute osseous abnormality. MMODAL Dee Dee Durbin MD - 09/21/2024 Interpreted By: Dee Dee Durbin, STUDY: Chest, single AP view. INDICATION: Signs/Symptoms:Chest Pain. COMPARISON: None. ACCESSION NUMBER(S): [id number] ORDERING CLINICIAN: BLANCA ROJO FINDINGS: The cardiac silhouette size is within normal limits. There is no focal consolidation, edema or pneumothorax. No sizeable pleural effusion. No acute osseous abnormality. IMPRESSION: 1. No acute cardiopulmonary process. MACRO: None. Signed by: Dee Dee Durbin 09/21/2024 5:08 PM Dictation workstation: [id number] [facility] Work Phone: Radiology Study observation (narrative) [facility] Work Phone: XR Chest Single viewOrdered By: Dee Dee Durbin on 09-21-2024 [facility] Work Phone: aPTTOrdered By: Veronica Bess on 09-21-2024 aPTT Coag (PPP) [Time] 21 [facility]ag (PPP) [Time]Ordere d By: Veronica Bess on 09-21-2024 Interpretation and review of laboratory results Abnormal [facility] The APTT is no longe r used for monitoring Unfractionated Heparin Therapy. For monitoring Heparin Therapy, use the Heparin Assay. [facility] XR CERVICAL SPINE 2-3 VIEWSo n 09-19-2024 XR CERVICAL SPINE 2-3 VIEWS Interpreted By: Ramos Ram, STUDY: XR CERVICAL SPINE 2-3 VIEWS INDICATION: Signs/Symptoms:dx. COMPARISON: None ACCESSION NUMBER(S): [id number] ORDERING CLINICIAN: CYNDI HORN FINDINGS: Miay-kp-mbkdrpry cervical degenerative changes diffusely greatest C5 through C7. Alignment normal. Prevertebral soft tissues normal. IMPRESSION: Lerr-cd-tiailxnf cervical degenerative changes. Signed by: Ramos Ram 09/21/2024 1:07 PM Dictation workstation: [employer] [facility] XR LUMBAR SPINE 2-3 VIEWSon 09-19-2024 XR LUMBAR SPINE 2-3 VIEWS Interpreted By: Ramos Ram, STUDY: XR LUMBAR SPINE 2-3 VIEWS INDICATION: Signs/Symptoms:dx. COMPARISON: None ACCESSION NUMBER(S): [id number] ORDERING CLINICIAN: CYNDI HORN FINDINGS: Tiec-gf-bwyovrjf lumbar degenerative changes. Disc disease greatest thoracolumbar junction. Facet arthrosis greatest L3-S1 with a minimal anterolisthesis L4-5. No fracture. IMPRESSION: Ilth-kp-hfewvwqu lumbar degenerative changes. Signed by: Ramos Ram 09/21/2024 1:08 PM Dictation workstation: [employer] [facility] BI MAMMO BILATERAL SCREENING TOMOSYNTHESISon 06-06-2024 BI MAMMO BILATERAL SCREENING TOMOSYNTHESIS Interpreted By: Chris Piper, STUDY: BI MAMMO BILATERAL SCREENING TOMOSYNTHESIS; 06/06/2024 10:19 am ACCESSION NUMBER(S): [id number] ORDERING CLINICIAN: CYNDI HORN INDICATION: Screening. COMPARISON: Digital mammogram dated 05/31/2023 FINDINGS: CC and MLO 2D digital mammograms and digital breast tomosynthesis images were obtained of the bilateral breasts. 3-D volume images were reconstructed in 4 views at an independent workstation as 1 mm slices through the breasts in both the CC and MLO projections. Density: There are scattered areas of fibroglandular density. No discrete mass or focal asymmetry is identified. No suspicious microcalcifications or foci of architectural distortion are seen. There has been no significant change. This study was interpreted with CAD. IMPRESSION: No mammographic evidence of malignancy. BI-RADS CATEGORY: BI-RADS Category: 1 Negative. Recommendation: Annual Screening. Recommended Date: 1 Year. Laterality: Bilateral. MACRO: None Signed by: Chris Piper 06/07/2024 8:26 AM Dictation workstation: [id number] Normal [facility] CBC W Auto Differential pane l (Bld)on 02-07-2024 Basophils (Bld) [#/Vol] 0.04 x10*3/uL Normal 0.00-0.10 [facility] Comment on above: Performed By: #### 5 7021-8 #### MISSAEL LAY ([id number]) [facility] ([facility]) [address] [place] [address] 97745 Basophils/100 WBC (Bld) 0.6 % Normal 0.0-2.0 [facility] Comment on above: Performed By: #### 5 7021-8 #### MISSAEL LAY ([id number]) [facility] ([facility]) [address] [place] [address] 81690 Eosinophils (Bld) [#/Vol] 0.25 x10*3/uL Normal 0.00-0.40 [facility] Comment on above: Performed By: #### 5 7021-8 #### MISSAEL LAY ([id number]) [facility] ([facility]) [address] [place] [address] 51205 Eosinophils/100 WBC (Bld) 4.0 % Normal 0.0-6.0 [facility] Comment on above: Performed By: #### 5 7021-8 #### MISSAEL LAY ([id number]) [facility] ([facility]) [address] [place] [address] 92637 Erythrocyte distribution width (RBC) [Ratio] 12.5 % Normal 11.5-14.5 [facility] Comment on above: Performed By: #### 5 7021-8 #### MISSAEL LAY ([id number]) [facility] ([facility]) [address] [place] [address] 60515 Hematocrit (Bld) [Volume fraction] 39.1 % Normal 36.0-46.0 [facility] Comment on above: Performed By: #### 5 7021-8 #### MISSAEL LAY ([id number]) [facility] ([facility]) [address] [place] [address] 76354 Hemoglobin (Bld) [Mass/Vol] 12.8 g/dL Normal 12.0-16.0 [facility] Comment on above: Performed By: #### 5 7021-8 #### MISSAEL LAY ([id number]) [facility] ([facility]) [address] [place] [address] 50250 Immature granulocytes (Bld) [#/Vol] 0.02 x10*3/uL Normal 0.00-0.50 [facility] Comment on above: Performed By: #### 5 7021-8 #### MISSAEL LAY ([id number]) [facility] ([facility]) [address] [place] [address] 14310 Immature granulocytes/100 WBC (Bld) 0.3 % Normal 0.0-0.9 [facility] Comment on above: Result Comment: Shiela ture Granulocyte Count (IG) includes promyelocytes, myelocytes and metamyelocytes but does not include bands. Percent differential counts (%) should be interpreted in the context of the absolute cell counts (cells/UL). Performed By: #### 5 7021-8 #### MISSAEL LAY ([id number]) [facility] ([facility]) [address] [place] [address] 53038 Lymphocytes (Bld) [#/Vol] 1.56 x10*3/uL Normal 0.80-3.00 [facility] Comment on above: Performed By: #### 5 7021-8 #### MISSAEL LAY ([id number]) [facility] ([facility]) [address] [place] [address] 19918 Lymphocytes/100 WBC (Bld) 25.2 % Normal 13.0-44.0 [facility] Comment on above: Performed By: #### 5 7021-8 #### MISSAEL LAY ([id number]) [facility] ([facility]) [address] [place] [address] 40470 MCH (RBC) [Entitic mass] 32.1 pg Normal 26.0-34.0 [facility] Comment on above: Performed By: #### 5 7021-8 #### MISSAEL LAY ([id number]) [facility] ([facility]) [address] [place] [address] 12579 MCHC (RBC) [Mass/Vol] 32.7 g/dL Normal 32.0-36.0 [facility] Comment on above: Performed By: #### 5 7021-8 #### MISSAEL LAY ([id number]) [facility] ([facility]) [address] [place], [place] [address] MCV (RBC) [Entitic vol] 98 fL Normal 80-100 [facility] Comment on above: Performed By: #### 5 7021-8 #### MISSAEL LAY ([id number]) [facility] ([facility]) [address] [place], [place] [address] Monocytes (Bld) [#/Vol] 0.37 x10*3/uL Normal 0.05-0.80 [facility] Comment on above: Performed By: #### 5 7021-8 #### MISSAEL LAY ([id number]) [facility] ([facility]) [address] [place], [place] [address] Monocytes/100 WBC (Bld) 6.0 % Normal 2.0-10.0 [facility] Comment on above: Performed By: #### 5 7021-8 #### MISSAEL LAY ([id number]) [facility] ([facility]) [address] [place] [address] 99420 Neutrophils (Bld) [#/Vol] 3.95 x10*3/uL Normal 1.60-5.50 [facility] Comment on above: Result Comment: Perc ent differential counts (%) should be interpreted in the context of the absolute cell counts (cells/uL). Performed By: #### 5 7021-8 #### MISSAEL LAY ([id number]) [facility] ([facility]) [address] [place] [address] 93549 Neutrophils/100 WBC (Bld) 63.9 % Normal 40.0-80.0 [facility] Comment on above: Performed By: #### 5 7021-8 #### MISSAEL LAY ([id number]) [facility] ([facility]) [address] [place] [address] 30323 Nucleated RBC/100 WBC (Bld) [Ratio] 0.0 /100 WBCs Normal 0.0-0.0 [facility] Comment on above: Performed By: #### 5 7021-8 #### MISSAEL LAY ([id number]) [facility] ([facility]) [address] [place] [address] 96940 Platelets (Bld) [#/Vol] 230 x10*3/uL Normal 150-450 [facility] Comment on above: Performed By: #### 5 7021-8 #### MISSAEL LAY ([id number]) [facility] ([facility]) [address] [place] [address] 14926 RBC (Bld) [#/Vol] 3.99 x10*6/uL Low 4.00-5.20 [facility] Comment on above: Performed By: #### 5 7021-8 #### MISSAEL LAY ([id number]) [facility] ([facility]) [address] [place] [address] 64764 WBC (Bld) [#/Vol] 6.2 x10*3/uL Normal 4.4-11.3 [facility] Comment on above: Performed By: #### 5 7021-8 #### MISSAEL LAY ([id number]) [facility] ([facility]) [address] [place] [address] 48276 Calcidiolon 02-07-2024 25-hydroxyvitamin D3 [Mass/Vol] 39 ng/mL Normal 30-100 [facility] Comment on above: Order Comment: Defic iency: < 20 ng/ml Insufficiency: 20-29 ng/ml Sufficiency: 30-100 ng/ml This assay accurately quantifies the sum of Vitamin D3, 25-Hydroxy and Vitamin D2,25-Hydroxy. Performed By: #### 1 989-3 #### MISSAEL LAY ([id number]) [facility] ([facility]) [address] [id number] Cobalaminson 02-07-2024 Cobalamin (Vitamin B12) [Mass/Vol] 493 pg/mL Normal 211-911 [facility] Comment on above: Performed By: #### 2 132-9 #### MISSAEL LAY ([id number]) [facility] ([facility]) [address] [place], [place] [address] Comprehensive metabolic 2000 panelon 02-07-2024 Albumin BCP dye [Mass/Vol] 4.1 g/dL Normal 3.4-5.0 [facility] Comment on above: Performed By: #### 2 4323-8 #### MISSAEL LAY ([id number]) [facility] ([facility]) [address] [place] [address] 31041 ALP [Catalytic activity/Vol] 74 U/L Normal 33-136 [facility] Comment on above: Performed By: #### 2 4323-8 #### MISSAEL LAY ([id number]) [facility] ([facility]) [address] [place] [address] 07799 ALT With P-5'-P [Catalytic activity/Vol] 16 U/L Normal 7-45 [facility] Comment on above: Result Comment: Addie ents treated with Sulfasalazine may generate falsely decreased results for ALT. Performed By: #### 2 4323-8 #### MISSAEL LAY ([id number]) [facility] ([facility]) [address] [place] [address] 02152 Anion gap [Moles/Vol] 8 mmol/L Low 10-20 [facility] Comment on above: Performed By: #### 2 4323-8 #### MISSAEL LAY ([id number]) [facility] ([facility]) [address] [place] [address] 88747 AST With P-5'-P [Catalytic activity/Vol] 20 U/L Normal 9-39 [facility] Comment on above: Performed By: #### 2 4323-8 #### MISSAEL LAY ([id number]) [facility] ([facility]) [address] [place] [address] Bilirubin [Mass/Vol] 0.7 mg/dL Normal 0.0-1.2 [facility] Comment on above: Performed By: #### 2 4323-8 #### MISSEAL LAY ([id number]) [facility] ([facility]) [facility] [place] [address] Calcium [Mass/Vol] 9.1 mg/dL Normal 8.6-10.3 [facility] Comment on above: Performed By: #### 2 4323-8 #### MISSAEL LAY ([id number]) [facility] ([facility]) [address] [place] [address] 94665 Chloride [Moles/Vol] 107 mmol/L Normal 98-107 [facility] Comment on above: Performed By: #### 2 4323-8 #### MISSAEL LAY ([id number]) [facility] ([facility]) [address] [place] [address] 56451 CO2 [Moles/Vol] 29 mmol/L Normal 21-32 [facility] Comment on above: Performed By: #### 2 4323-8 #### MISSAEL LAY ([id number]) [facility] ([facility]) [address] [place] [address] 71224 Creatinine [Mass/Vol] 0.84 mg/dL Normal 0.50-1.05 [facility] Comment on above: Performed By: #### 2 4323-8 #### MISSAEL LAY ([id number]) [facility] ([facility]) [address] [place] [address] 67443 Glomerular filtration rate/1.73 sq M.predicted 72 mL/min/1.73m*2 Normal >60 [facility] Comment on above: Result Comment: Calc ulations of estimated GFR are performed using the 2020 CKD-EPI Study Refit equation without the race variable for the IDMS-Traceable creatinine methods. https://jasn.asnjournals.org/content//ASN.19188 98669 Performed By: #### 2 432-8 #### MISSAEL LAY ([id number]) [facility] ([facility]) [facility] [place] [address] Glucose [Mass/Vol] 86 mg/dL Normal 74-99 [facility] Comment on above: Performed By: #### 2 4322-8 #### MISSAEL LAY ([id number]) [facility] ([facility]) [address] [place] [address] 50341 Potassium [Moles/Vol] 4.0 mmol/L Normal 3.5-5.3 [facility] Comment on above: Performed By: #### 2 4322-8 #### MISSAEL LAY ([id number]) [facility] ([facility]) [address] [place] [address] 71817 Protein [Mass/Vol] 7.1 g/dL Normal 6.4-8.2 [facility] Comment on above: Performed By: #### 2 4322-8 #### MISSAEL LAY ([id number]) [facility] ([facility]) [address] [place] [address] 75773 Sodium [Moles/Vol] 140 mmol/L Normal 136-145 [facility] Comment on above: Performed By: #### 2 4322-8 #### MISSAEL LAY ([id number]) [facility] ([facility]) [facility] [place] [address] Urea nitrogen [Mass/Vol] 20 mg/dL Normal 6-23 [facility] Comment on above: Performed By: #### 2 4322-8 #### MISSAEL LAY ([id number]) [facility] ([facility]) [address] [place] [address] 84884 HbA1c (Bld) [Mass fraction]o n 02-07-2024 Average glucose Estimated from glycated hemoglobin (Bld) [Mass/Vol] 100 mg/dL Normal Not Established [facility] Comment on above: Order Comment: Diagn osis of Diabetes-Adults Non-Diabetic: < or = 5.6% Increased risk for developing diabetes: 5.7-6.4% Diagnostic of diabetes: > or = 6.5% Performed By: #### 4 548-4 #### ADELE Esposito ([id number]) [facility] ([facility]) [address] [place] [address] 57351 Hemoglobin A1c/Hemoglobin.to kylee 02-07-2024 HbA1c (Bld) [Mass fraction] 5.1 % Normal See comment [facility] Comment on above: Order Comment: Diagn osis of Diabetes-Adults Non-Diabetic: < or = 5.6% Increased risk for developing diabetes: 5.7-6.4% Diagnostic of diabetes: > or = 6.5% Performed By: #### 4 548-4 #### ADELE Esposito ([id number]) [facility] ([facility]) [address] [place], [place] [address] Hepatitis C virus Abon 02-06 HCV Ab Ql (S) Non-Reactive Normal Nonreactive [facility] Comment on above: Result Comment: Resu lts from patients taking biotin supplements or receiving high-dose biotin therapy should be interpreted with caution due to possible interference with this test. Providers may contact their local laboratory for further information. Performed By: #### 1 6128-1 #### ADELE Esposito ([id number]) [facility] ([facility]) [address] [place], [place] [address] Lipid 1996 panelon Cholesterol [Mass/Vol] 171 mg/dL Normal 0-199 [facility] Comment on above: Result Comment: Age Desirable Borderline High High 0-19 Y 0 - 169 170 - 199 >/= 200 20-24 Y 0 - 189 190 - 224 >/= 225 >24 Y 0 - 199 200 - 239 >/= 240 All ranges are based on fasting samples. Specific therapeutic targets will vary based on patient-specific cardiac risk. Pediatric guidelines reference:Pediatrics 2011, 128(S5).Adult guidelines reference: NCEP ATPIII Guidelines,DYLAN 2001, 258:2486-97 Venipuncture immediately after or during the administration of Metamizole may lead to falsely low results. Testing should be performed immediately prior to Metamizole dosing. Performed By: #### 2 4331-1 #### MISSAEL LAY ([id number]) [facility] ([facility]) [address] [place] [address] Cholesterol in HDL [Mass/Vol] 76.0 mg/dL Normal [facility] Comment on above: Result Comment: Age Very Low Low Normal High 0-19 Y < 35 < 40 40-45 ---- 20-24 Y ---- < 40 >45 ---- >24 Y ---- < 40 40-60 >60 Performed By: #### 2 4331-1 #### MISSAEL LAY ([id number]) [facility] ([facility]) [facility] [place] [address] Cholesterol in LDL [Mass/Vol] 83 mg/dL Normal <=99 [facility] Comment on above: Result Comment: Near Borderline AGE Desirable Optimal High High Very High 0-19 Y 0 - 109 --- 110-129 >/= 130 ---- 20-24 Y 0 - 119 --- 120-159 >/= 160 ---- >24 Y 0 - 99 100-129 130-159 160-189 >/=190 Performed By: #### 2 4331-1 #### MISSAEL LAY ([id number]) [facility] ([facility]) [address] [place] [address] 79199 Cholesterol in VLDL [Mass/Vol] 12 mg/dL Normal 0-40 [facility] Comment on above: Performed By: #### 2 4331-1 #### MISSAEL LAY ([id number]) [facility] ([facility]) [address] [place] [id number] CHOLESTEROL/HDL RATIO 2.[address] [facility] Comment on above: Result Comment: Ref Values Desirable < 3.4 High Risk > 5.0 Performed By: #### 2 4331-1 #### MISSAEL LAY ([id number]) [facility] ([facility]) [address] [place] [address] [id number] NON HDL CHOLESTEROL 95 mg/dL Normal 0-149 [facility] Comment on above: Result Comment: Age Desirable Borderline High High Very High 0-19 Y 0 - 119 120 - 144 >/= 145 >/= 160 20-24 Y 0 - 149 150 - 189 >/= 190 ---- >24 Y 30 mg/dL above LDL Cholesterol goal Performed By: #### 2 4331-1 #### MISSAEL LAY ([id number]) [facility] ([facility]) [address] [place] [address] Triglyceride [Mass/Vol] 62 mg/dL Normal 0-149 [facility] Comment on above: Result Comment: Age Desirable Borderline High Very High SEX:B mg/dL mg/dL mg/dL mg/dL <=14D 86-277 ---- ---- ---- 15D-365D 55-277 ---- ---- ---- 1Y-9Y 0-74 75-99 >=100 ---- 10Y-19Y 0-89 90-129 >=130 ---- 20Y-24Y 0-114 115-149 >=150 ---- >= 25Y 0-149 150-199 200-499 >=500 Venipuncture immediately after or during the administration of Metamizole may lead to falsely low results. Testing should be performed immediately prior to Metamizole dosing. Performed By: #### 2 4331-1 #### MISSAEL LAY ([id number]) [facility] ([facility]) [address] [place] [address] TSH WITH REFLEX TO FREE T4 I F ABNORMALon 02-07-2024 TSH Qn 1.52 m[IU]/L Normal 0.44-3.98 [facility] Comment on above: Order Comment: TSH t esting is performed using different testing methodology at [facility] than at other [facility]. Direct result comparisons should only be made within the same method. Performed By: #### T HYDS #### MISSAEL LAY ([id number]) [facility] ([facility]) [address] [place] [address] ECG 12 lead (Clinic Performe d)on 12-20-2023 Interpretation and review of laboratory results Normal [facility] Work Phone: [facility] Work Phone: Zach 10-17-2023 CNPN Telephone ([facility] -------- UZMA DURAN ([id number]) 1945 F Date Time Provider Department 10/17/23 NAOMI TREJO During your visit today, we recorded the following information about you: Allergies As of Date: 10/17/2023 Noted Allergy Reaction PENICILLINS 02/01/2022 2 - Rash Date Reviewed: 05/16/2023 Reviewed by: Wendie Graves Dent-A - Fully Assessed Prescriptions as of 10/17/2023 - losartan (COZAAR) 50 mg tablet Take 50 mg by mouth every 24 hours. - atorvastatin (LIPITOR) 20 mg tablet Take by mouth q 24 HR. Problem List As Of Date 10/17/2023 Noted Resolved MARCY (obstructive sleep apnea) [G47.33] 11/08/2022 HTN (hypertension) [I10] 11/08/2022 HLD (hyperlipidemia) [E78.5] 11/08/2022 Encounter Status:Closed by GOVIND FINNEGAN on 10/17/23 [facility]icity 07-27-2023 CNOV Office Visit (DMFPMN ) -------- UZMA DURAN ([id number]) 1945 F Date Time Provider Department 07/27/23 10:20 AM RODRI BENOIT DMFPMN During your visit today, we recorded the following information about you: Rodri Benoit, RANJEET 07/28/2023 9:16 AM Signed DENTISTRY AND MAXILLOFACIAL PROSTHETICS Uzma Duran [id number] 07/27/2023 SUBJECTIVE: Uzma Duran presents today for follow-up regarding the oral mandibular advancement device. She is using the oral appliance 7 nights per week for approximately 6-8 hours per night. She had a repeat sleep study with the oral appliance which showed an AHI of 18.4 which is up from the prior AHI of 9.6. She feels better with the appliance. Patient-Entered Questionnaires 02/15/2023 03/01/2023 Dental Intake Sleep Follow-up Night per week appliance 7 7 Hours per night appliance 6-8 6-8 Snore while wearing appliance Yes Yes Appliance comfortable Yes Yes More refreshed No Yes More energy No Yes Bite feels normal Yes Yes Teeth/jaw pain No No 07/03/2022 12/04/2022 02/15/2023 [place] Sleepiness Scale Sitting and Reading? Slight chance of dozing Slight chance of dozing Slight chance of dozing Watching TV? Slight chance of dozing Slight chance of dozing Slight chance of dozing Sitting inactive in a public place (e.g a theater or a meeting) No chance of dozing No chance of dozing No chance of dozing As a passenger in a car for an hour without a break? No chance of dozing No chance of dozing Slight chance of dozing Lying down to rest in the afternoon when circumstances permit? Slight chance of dozing Moderate chance of dozing Moderate chance of dozing Sitting and talking to someone? No chance of dozing No chance of dozing No chance of dozing Sitting quietly after lunch without alcohol? No chance of dozing Slight chance of dozing No chance of dozing In a car, while stopped for a few minutes in traffic? No chance of dozing No chance of dozing No chance of dozing Total Score 3 (No clinically significant daytime sleepiness) 5 (No clinically significant daytime sleepiness) 5 (No clinically significant daytime sleepiness) Score compared to last 3 (EQUAL = 3) 1 (GREATER = 1) 3 (EQUAL = 3) Patient Questionairre: Do you snore when using the appliance? YES Is the appliance comfortable? YES Do you feel any more refreshed during the day? NO Does your bite return to normal each day? YES Do you have any pain in your teeth or jaw? NO ESS today = 4 Medical history:reviewed, no change. OBJECTIVE: General appearance, eyes, ears, nose, neck, face, and salivary glands are grossly symmetric and remain unchanged. Dentition remains unchanged. Hard and soft palate are unchanged. Oral mucosa and tongue are unchanged. No facial pain. Exam reveals bilateral stable occlusal support and no significant change in teeth mobility. At the current position, the patient has 5mm of remaining protrusive ROM. Advanced 10 turns bilaterally in the office today. ASSESSMENT: She appears to have a fair response to the oral appliance. Obstructive sleep apnea is symptomatically somewhat improved but objectively shows residual MARCY. PLAN: Continue oral appliance therapy at this more advanced position. If use becomes painful during advancement then stop, go back to the last comfortable position and contact the office. Next appointment: 4 weeks for reassessment. Call sooner if use becomes painful or with any other concerns. Rodri Benoit DMD Referring Provider: RODRI BENOIT [[id number]] Allergies As of Date: 07/27/2023 Noted Allergy Reaction PENICILLINS 02/01/2022 2 - Rash Date Reviewed: 05/16/2023 Reviewed by: Wendie Graves Dent-A - Fully Assessed Reason for Visit: Sleep Apnea [1361] Primary Visit Diagnosis:MARCY (obstructive sleep apnea) [G47.33] Order(s):SLEEP FOLLOW UP [D5999.22] Order #: [id number]: 1 FUTURE POSTOP FOLLOW UP VISIT RELATED TO ORIGINAL PX [54109] Order #: [id number]: 1 FUTURE POSTOP FOLLOW UP VISIT RELATED TO ORIGINAL PX [82492] Order #: [id number]: 1 Prescriptions as of 07/28/2023 - losartan (COZAAR) 50 mg tablet Take 50 mg by mouth every 24 hours. - atorvastatin (LIPITOR) 20 mg tablet Take by mouth q 24 HR. Problem List As Of Date 07/27/2023 Noted Resolved MARCY (obstructive sleep apnea) [G47.33] 11/08/2022 HTN (hypertension) [I10] 11/08/2022 HLD (hyperlipidemia) [E78.5] 11/08/2022 Encounter Status:Closed by RODRI BENOIT on 07/28/23 [facility] [place] -------- UZMA DURAN ([id number]) 1945 F Date Time Provider Department 07/17/23 RODRI BENOIT During your visit today, we recorded the following information about you: Yon Salinas 07/17/2023 3:52 PM Signed ----- Message from Rodri Benoit DMD sent at 07/12/2023 9:00 PM EDT ----- Appointment Request (please link patient chart to message) Provider: Cy Appt date: tennille Time: Length: 20 Appt Notes: Sleep follow up for possible adjustment Does patient need to be contacted to confirm? yes Yon Salinas 07/17/2023 3:53 PM Signed Lvm for pt notifying to call to schedule the appt below. Sent MC message Allergies As of Date: 07/17/2023 Noted Allergy Reaction PENICILLINS 02/01/2022 2 - Rash Date Reviewed: 05/16/2023 Reviewed by: Wendie Graves Dent-A - Fully Assessed Reason for Visit: Appointment [186] Prescriptions as of 07/17/2023 - losartan (COZAAR) 50 mg tablet Take 50 mg by mouth every 24 hours. - atorvastatin (LIPITOR) 20 mg tablet Take by mouth q 24 HR. Problem List As Of Date 07/17/2023 Noted Resolved MARCY (obstructive sleep apnea) [G47.33] 11/08/2022 HTN (hypertension) [I10] 11/08/2022 HLD (hyperlipidemia) [E78.5] 11/08/2022 Encounter Status:Closed by YON SALINAS on 07/17/23 [facility] Zach 07-12-2023 CNPN Telephone ([facility] [place]) -------- UZMA DURAN ([id number]) 1945 F Date Time Provider Department 07/12/23 RODRI BENOIT DMFPMN During your visit today, we recorded the following information about you: Rodri Benoit, DMD 07/12/2023 8:59 PM Signed 07/11/23 Patient was scheduled for virtual visit today but was unable to log in. We connected via telephone to discuss her progress with OAT. She had a repeat sleep study using the appliance on 06/01/23 which showed an AHI of 18.4 as compared to the prior study with an AHI of 9.6. I have recommended she discuss with Dr. Trejo and will want to see her back to consider whether further advancement is possible. Rodri Benoit DMD Allergies As of Date: 07/12/2023 Noted Allergy Reaction PENICILLINS 02/01/2022 2 - Rash Date Reviewed: 05/16/2023 Reviewed by: Wendie Graves Dent-A - Fully Assessed Prescriptions as of 07/12/2023 - losartan (COZAAR) 50 mg tablet Take 50 mg by mouth every 24 hours. - atorvastatin (LIPITOR) 20 mg tablet Take by mouth q 24 HR. Problem List As Of Date 07/12/2023 Noted Resolved MARCY (obstructive sleep apnea) [G47.33] 11/08/2022 HTN (hypertension) [I10] 11/08/2022 HLD (hyperlipidemia) [E78.5] 11/08/2022 Encounter Status:Closed by RODRI BENOIT on 07/12/23 Normal [facility] DBT Breast - bilateralon No mammographic evid ence of malignancy. Based on the Tyrer-Cuzick model for breast cancer risk assessment, the patient's lifetime risk of breast cancer is 3.0%. Patients with over a 20% lifetime risk of developing breast cancer may benefit from additional screening with breast MRI or ultrasound. Please note that this estimate is based on responses provided on the patient questionnaire. For more information regarding high risk consultation, please call [phone]. BI-RADS CATEGORY: BI-RADS Category: 1 Negative. Recommendation: Routine Screening Mammogram in 1 Year. Recommended Date: 1 Year. Laterality: Bilateral. MACRO: None Signed by: Chris Piper 06/01/2023 10:16 AM Dictation workstation: [id number] MMODAL Interpreted By: Chris Piper, STUDY: BI MAMMO BILATERAL SCREENING TOMOSYNTHESIS; 05/31/2023 1:22 pm ACCESSION NUMBER(S): [id number] ORDERING CLINICIAN: CYNDI HORN INDICATION: Screening. COMPARISON: Digital mammograms dated 05/23/2022 FINDINGS: CC and MLO 2D digital mammograms and digital breast tomosynthesis images were obtained of the bilateral breasts. 3-D volume images were reconstructed in 4 views at an independent workstation as 1 mm slices through the breasts in both the CC and MLO projections. Density: There are areas of scattered fibroglandular tissue. No discrete mass or focal asymmetry is identified. No suspicious microcalcifications or foci of architectural distortion are seen. There has been no significant change. This study was interpreted with CAD. MMODAL Chris Piper MD - 06/01/2023 Interpreted By: Chris Piper, STUDY: BI MAMMO BILATERAL SCREENING TOMOSYNTHESIS; 05/31/2023 1:22 pm ACCESSION NUMBER(S): [id number] ORDERING CLINICIAN: CYNDI HORN INDICATION: Screening. COMPARISON: Digital mammograms dated 05/23/2022 FINDINGS: CC and MLO 2D digital mammograms and digital breast tomosynthesis images were obtained of the bilateral breasts. 3-D volume images were reconstructed in 4 views at an independent workstation as 1 mm slices through the breasts in both the CC and MLO projections. Density: There are areas of scattered fibroglandular tissue. No discrete mass or focal asymmetry is identified. No suspicious microcalcifications or foci of architectural distortion are seen. There has been no significant change. This study was interpreted with CAD. IMPRESSION: No mammographic evidence of malignancy. Based on the Tyrer-Cuzick model for breast cancer risk assessment, the patient's lifetime risk of breast cancer is 3.0%. Patients with over a 20% lifetime risk of developing breast cancer may benefit from additional screening with breast MRI or ultrasound. Please note that this estimate is based on responses provided on the patient questionnaire. For more information regarding high risk consultation, please call [phone]. BI-RADS CATEGORY: BI-RADS Category: 1 Negative. Recommendation: Routine Screening Mammogram in 1 Year. Recommended Date: 1 Year. Laterality: Bilateral. MACRO: None Signed by: Chris Piper 06/01/2023 10:16 AM Dictation workstation: [id number] [facility] Work Phone: DBT Breast - bilateralOrdere d By: Chris Piper on 06-01-2023 [facility] Work Phone: DXA Skeletal system Views fo r bone densityon 06-01-2023 DEXA: According to [place] or[employer] Health Organization criteria, classification is osteoporosis. Followup recommended in two years or sooner as clinically warranted. VFA: A possible compression fracture is seen at the T6 level. All images and detailed analysis are available on the Radiology PACS. MACRO: None Signed by: Chris Piper 06/01/2023 12:00 PM Dictation workstation: [id number] MMODAL Interpreted By: Chris Piper, STUDY: DEXA BONE DENSITY06/01/2023 11:24 am INDICATION: Signs/Symptoms:screen. The patient is a 77 y/o year old F. COMPARISON: 05/25/2021 ACCESSION NUMBER(S): [id number] ORDERING CLINICIAN: CYNDI HORN TECHNIQUE: DEXA BONE DENSITY FINDINGS: SPINE L1-L4 Bone Mineral Density: 1.039 T-Score -1.3 Z-Score 0.5 Bone Mineral Density change vs baseline: Not reported Bone Mineral Density change vs previous: Not reported LEFT FEMUR -TOTAL Bone Mineral Density: 0.776 T-Score -1.8 Z-Score 0.0 Bone Mineral Density change vs baseline: Not reported Bone Mineral Density change vs previous: Not reported LEFT FEMUR -NECK Bone Mineral Density: 0.651 T-Score -2.8 Z-Score -0.8 RIGHT FEMUR -TOTAL Bone Mineral Density: 0.787 T-Score -1.7 Z-Score 0.1 Bone Mineral Density change vs baseline: Not reported Bone Mineral Density change vs previous: Not reported RIGHT FEMUR -NECK Bone Mineral Density: 0.693 T-Score -2.5 Z-Score -0.5 World Health Organization (WHO) criteria for post-menopausal, Women: Normal: T-score at or above -1 SD Osteopenia: T-score between -1 and -2.5 SD Osteoporosis: T-score at or below -2.5 SD 10-year Fracture Risk: Major Osteoporotic Fracture 20.1 Hip Fracture 7.3 Note: If no FRAX score is reported, it is because: Some T-score for Spine Total or Hip Total or Femoral Neck at or below -2.5 Vertebral Deformity Assessment: Exam Date - 06/01/2023 11:24 am Vertebral Level Impression T4 None T5 None T6 Sev. Wedge T7 None T8 None T9 None T10 None T11 None T12 None L1 None L2 None L3 None L4 None A spine fracture indicates 5X risk for subsequent spine fracture and 2X risk for subsequent hip fracture. This exam was performed at [facility] on a [place] [facility] Dexa Unit. MMODAL Chris Piper MD - 06/01/2023 Interpreted By: Chris Piper, STUDY: DEXA BONE DENSITY06/01/2023 11:24 am INDICATION: Signs/Symptoms:screen. The patient is a 77 y/o year old F. COMPARISON: 05/25/2021 ACCESSION NUMBER(S): [id number] ORDERING CLINICIAN: CYNDI HORN TECHNIQUE: DEXA BONE DENSITY FINDINGS: SPINE L1-L4 Bone Mineral Density: 1.039 T-Score -1.3 Z-Score 0.5 Bone Mineral Density change vs baseline: Not reported Bone Mineral Density change vs previous: Not reported LEFT FEMUR -TOTAL Bone Mineral Density: 0.776 T-Score -1.8 Z-Score 0.0 Bone Mineral Density change vs baseline: Not reported Bone Mineral Density change vs previous: Not reported LEFT FEMUR -NECK Bone Mineral Density: 0.651 T-Score -2.8 Z-Score -0.8 RIGHT FEMUR -TOTAL Bone Mineral Density: 0.787 T-Score -1.7 Z-Score 0.1 Bone Mineral Density change vs baseline: Not reported Bone Mineral Density change vs previous: Not reported RIGHT FEMUR -NECK Bone Mineral Density: 0.693 T-Score -2.5 Z-Score -0.5 World Health Organization (WHO) criteria for post-menopausal, Women: Normal: T-score at or above -1 SD Osteopenia: T-score between -1 and -2.5 SD Osteoporosis: T-score at or below -2.5 SD 10-year Fracture Risk: Major Osteoporotic Fracture 20.1 Hip Fracture 7.3 Note: If no FRAX score is reported, it is because: Some T-score for Spine Total or Hip Total or Femoral Neck at or below -2.5 Vertebral Deformity Assessment: Exam Date - 06/01/2023 11:24 am Vertebral Level Impression T4 None T5 None T6 Sev. Wedge T7 None T8 None T9 None T10 None T11 None T12 None L1 None L2 None L3 None L4 None A spine fracture indicates 5X risk for subsequent spine fracture and 2X risk for subsequent hip fracture. This exam was performed at [facility] on a [place] [facility]. IMPRESSION: DEXA: According to World Health Organization criteria, classification is osteoporosis. Followup recommended in two years or sooner as clinically warranted. VFA: A possible compression fracture is seen at the T6 level. All images and detailed analysis are available on the Radiology PACS. MACRO: None Signed by: Chris Piper 06/01/2023 12:00 PM Dictation workstation: [id number] [facility] Work Phone: Radiology Study observation (narrative) [facility] Work Phone: DXA Skeletal system Views fo r bone densityOrdered By: Chris Piper on 06-01-2023 [facility] Work Phone: DBT Breast - bilateralon Radiology Study observation (narrative) [facility] Work Phone: CNOVon 05-16-2023 CNOV Office Visit (DMFPMN ) -------- UZMA DURAN ([id number]) 1945 F Date Time Provider Department 05/16/23 8:00 AM RODRI BENOIT DMFPMN During your visit today, we recorded the following information about you: Rodri Benoit, DMD 05/16/2023 8:46 AM Signed DENTISTRY AND MAXILLOFACIAL PROSTHETICS Uzma Duran [id number] 05/16/2023 SUBJECTIVE: Uzma Duran presents today for follow-up regarding the oral mandibular advancement device. She reports nearly full resolution of the prior ear pain when she stopped using the elastics. Patient-Entered Questionnaires Dental Intake Sleep Follow-up 02/15/2023 03/01/2023 Night per week appliance 7 7 Hours per night appliance 6-8 6-8 Snore while wearing appliance Yes Yes Appliance comfortable Yes Yes More refreshed No Yes More energy No Yes Bite feels normal Yes Yes Teeth/jaw pain No No [place]ake Sleepiness Scale 07/03/2022 12/04/2022 02/15/2023 Sitting and Reading Slight chance of dozing Slight chance of dozing Slight chance of dozing Watching TV Slight chance of dozing Slight chance of dozing Slight chance of dozing Sitting inactive in a public place (e.g. a theater or a meeting). No chance of dozing No chance of dozing No chance of dozing As a passenger in a car for an hour without a break No chance of dozing No chance of dozing Slight chance of dozing Lying down to rest in the afternoon when circumstances permit Slight chance of dozing Moderate chance of dozing Moderate chance of dozing Sitting and talking to someone No chance of dozing No chance of dozing No chance of dozing Sitting quietly after lunch without alcohol No chance of dozing Slight chance of dozing No chance of dozing In a car, while stopped for a few minutes in traffic No chance of dozing No chance of dozing No chance of dozing Total Score 3 (No daytime sleepiness) 5 (No daytime sleepiness) 5 (No daytime sleepiness) Score compared to last 3 (EQUAL = 3) 1 (GREATER = 1) 3 (EQUAL = 3) Patient Questionairre: Do you snore when using the appliance? YES Is the appliance comfortable? YES Do you feel any more refreshed during the day? YES Does your bite return to normal each day? unsure Do you have any pain in your teeth or jaw? Sometimes per above ESS today = 4 Medical history:reviewed, no change. OBJECTIVE: General appearance, eyes, ears, nose, neck, face, and salivary glands are grossly symmetric and remain unchanged. Dentition remains unchanged. Hard and soft palate are unchanged. Oral mucosa and tongue are unchanged. No facial pain. Appliance set to 1 mm on the left and 1mm on the right. Exam reveals bilateral stable occlusal support and no significant change in teeth mobility. At the current position, the patient has 8mm of remaining protrusive ROM. ASSESSMENT: She appears to have a good response to the oral appliance. Obstructive sleep apnea is symptomatically improved with oral appliance therapy though treatment may remain subtherapeutic. Assessment of oral appliance effectiveness is pending objective testing. PLAN: Referral back to Dr. Trejo to confirm efficacy. Next appointment: 6 weeks for reassessment. Call sooner if use becomes painful or with any other concerns. Rodri Benoit, RANJEET Referring Provider: RODRI BENOIT [[id number]] Allergies As of Date: 05/16/2023 Noted Allergy Reaction PENICILLINS 02/01/2022 2 - Rash Date Reviewed: 05/16/2023 Reviewed by: Wendie Graves Dent-A - Fully Assessed Reason for Visit: Sleep Apnea [1361] Primary Visit Diagnosis:MARCY (obstructive sleep apnea) [G47.33] Order(s):POSTOP FOLLOW UP VISIT RELATED TO ORIGINAL PX [44964] Order #: [id number]: 1 SLEEP FOLLOW UP [D5999.22] Order #: [id number]: 1 FUTURE Prescriptions as of 05/16/2023 - losartan (COZAAR) 50 mg tablet Take 50 mg by mouth every 24 hours. - atorvastatin (LIPITOR) 20 mg tablet Take by mouth q 24 HR. Problem List As Of Date 05/16/2023 Noted Resolved MARCY (obstructive sleep apnea) [G47.33] 11/08/2022 HTN (hypertension) [I10] 11/08/2022 HLD (hyperlipidemia) [E78.5] 11/08/2022 Encounter Status:Closed by RODRI BENOIT on 05/16/23 [facility] Zach 05-03-2023 [facility] Telephone (DMFN) -------- UZMA DURAN ([id number]) 1945 F Date Time Provider Department 05/03/23 RODRI BENOIT DMFPMN During your visit today, we recorded the following information about you: Rohit Calderon 05/03/2023 12:04 PM Signed Wendie Graves Dent-A P Dent Sched Pool Hello Can you contact this patient and get her in for Sleep follow up 20-30 min Whenever patient is available in the next few weeks Thank you! Allergies As of Date: 05/03/2023 Noted Allergy Reaction PENICILLINS 02/01/2022 2 - Rash Date Reviewed: 02/10/2023 Reviewed by: Harley Hoffman APRN.[employer] - Fully Assessed Reason for Visit: Appointment [186] Prescriptions as of 05/03/2023 - losartan (COZAAR) 50 mg tablet Take 50 mg by mouth every 24 hours. - atorvastatin (LIPITOR) 20 mg tablet Take by mouth q 24 HR. Problem List As Of Date 05/03/2023 Noted Resolved MARCY (obstructive sleep apnea) [G47.33] 11/08/2022 HTN (hypertension) [I10] 11/08/2022 HLD (hyperlipidemia) [E78.5] 11/08/2022 Encounter Status:Closed by ROHIT CALDERON on 05/03/23 [facility] -------- UZMA DURAN ([id number]) 1945 F Date Time Provider Department 04/13/23 RODRI BENOIT DMFPMN During your visit today, we recorded the following information about you: Rodri Benoit, DMD 04/13/2023 8:34 PM Signed 04/13/2023 Talked by phone with patient today about her oral appliance for MARCY. She continues to use it routinely and has had improvement in the earache discussed previously. She also stopped using the elastics and prefers without them. She will continue use at this position and follow up in the office in 4 weeks. Rodri Benoit DMD Allergies As of Date: 04/13/2023 Noted Allergy Reaction PENICILLINS 02/01/2022 2 - Rash Date Reviewed: 02/10/2023 Reviewed by: Harley Hoffman APRN.[employer] COACH - Fully Assessed Prescriptions as of 04/13/2023 - losartan (COZAAR) 50 mg tablet Take 50 mg by mouth every 24 hours. - atorvastatin (LIPITOR) 20 mg tablet Take by mouth q 24 HR. Problem List As Of Date 04/13/2023 Noted Resolved MARCY (obstructive sleep apnea) [G47.33] 11/08/2022 HTN (hypertension) [I10] 11/08/2022 HLD (hyperlipidemia) [E78.5] 11/08/2022 Encounter Status:Closed by RODRI BENOIT on 04/13/23 [facility] -------- UZMA DURAN ([id number]) 1945 F Date Time Provider Department 04/04/23 RODRI BENOIT [facility] [place] During your visit today, we recorded the following information about you: Rodri Benoit DMD 04/04/2023 8:08 PM Signed 03/31/23 Patient was scheduled for video visit but could not connect. Instead follow up was by phone. She reports using the oral appliance every night and she has moved it ahead two times. She reports overall doing well but does have a right earache. She is wondering if this could be related to the appliance which we discussed. Recommended to reverse 3 turns on the right and evaluate whether improved. Follow up 04/13 at 3:30 Rodri Benoit DMD Allergies As of Date: 04/04/2023 Noted Allergy Reaction PENICILLINS 02/01/2022 2 - Rash Date Reviewed: 02/10/2023 Reviewed by: Harley Hoffman APRN.MEN'S GOLF COACH - Fully Assessed Prescriptions as of 04/04/2023 - losartan (COZAAR) 50 mg tablet Take 50 mg by mouth every 24 hours. - atorvastatin (LIPITOR) 20 mg tablet Take by mouth q 24 HR. Problem List As Of Date 04/04/2023 Noted Resolved MARCY (obstructive sleep apnea) [G47.33] 11/08/2022 HTN (hypertension) [I10] 11/08/2022 HLD (hyperlipidemia) [E78.5] 11/08/2022 Encounter Status:Closed by RODRI BENOIT on 04/04/23 [facility] CNOVon 03-02-2023 CNOV Office Visit (DMFPMN ) -------- UZMA DURAN ([id number]) 1945 F Date Time Provider Department 03/02/23 4:00 PM RODRI BENOIT DMFPMN During your visit today, we recorded the following information about you: Rodri Benoit DMD 03/03/2023 9:09 AM Signed DENTISTRY AND MAXILLOFACIAL PROSTHETICS Uzma Duran [id number] 03/02/2023 SUBJECTIVE: Uzma Duran presents today for follow-up regarding the oral mandibular advancement device. Patient-Entered Questionnaires Dental Intake Sleep Follow-up 02/15/2023 03/01/2023 Night per week appliance 7 7 Hours per night appliance 6-8 6-8 Snore while wearing appliance Yes Yes Appliance comfortable Yes Yes More refreshed No Yes More energy No Yes Bite feels normal Yes Yes Teeth/jaw pain No No [place] Sleepiness Scale 07/03/2022 12/04/2022 02/15/2023 Sitting and Reading Slight chance of dozing Slight chance of dozing Slight chance of dozing Watching TV Slight chance of dozing Slight chance of dozing Slight chance of dozing Sitting inactive in a public place (e.g. a theater or a meeting). No chance of dozing No chance of dozing No chance of dozing As a passenger in a car for an hour without a break No chance of dozing No chance of dozing Slight chance of dozing Lying down to rest in the afternoon when circumstances permit Slight chance of dozing Moderate chance of dozing Moderate chance of dozing Sitting and talking to someone No chance of dozing No chance of dozing No chance of dozing Sitting quietly after lunch without alcohol No chance of dozing Slight chance of dozing No chance of dozing In a car, while stopped for a few minutes in traffic No chance of dozing No chance of dozing No chance of dozing Total Score 3 (No daytime sleepiness) 5 (No daytime sleepiness) 5 (No daytime sleepiness) Score compared to last 3 (EQUAL = 3) 1 (GREATER = 1) 3 (EQUAL = 3) OBJECTIVE: General appearance, eyes, ears, nose, neck, face, and salivary glands are grossly symmetric and remain unchanged. Dentition remains unchanged. Hard and soft palate are unchanged. Oral mucosa and tongue are unchanged. No facial pain. Adjusted intaglio at ULQ FPD for patient comfort Balanced left and right turns as pt turned one side forward and one side backwards. Reviewed advancement Demonstrated placement of elastics with instructions for use - replace daily. ASSESSMENT: She appears to have a good response to the oral appliance. Obstructive sleep apnea is symptomatically minimally with oral appliance therapy though treatment may remain subtherapeutic. Assessment of oral appliance effectiveness is pending objective testing. PLAN: Continue oral appliance calibration as is comfortable up to 5 turns per week for the next 3-4 weeks or until late afternoon sleepiness and snoring are improved. If use becomes painful during advancement then stop, go back to the last comfortable position and contact the office. The patient is reminded to follow-up with medical specialists for ongoing medical management. Next appointment: 4 weeks for reassessment. Call sooner if use becomes painful or with any other concerns. Rodri Benoit, RANJEET Referring Provider: RODRI BENOIT [[id number]] Allergies As of Date: 03/02/2023 Noted Allergy Reaction PENICILLINS 02/01/2022 2 - Rash Date Reviewed: 02/10/2023 Reviewed by: Harley Hoffman APRN.MEN'S GOLF COACH - Fully Assessed Primary Visit Diagnosis:MARCY (obstructive sleep apnea) [G47.33] Order(s):POSTOP FOLLOW UP VISIT RELATED TO ORIGINAL PX [70045] Order #: [id number]: 1 FUTURE POSTOP FOLLOW UP VISIT RELATED TO ORIGINAL PX [86478] Order #: [id number]: 1 Prescriptions as of 03/03/2023 - losartan (COZAAR) 50 mg tablet Take 50 mg by mouth every 24 hours. - atorvastatin (LIPITOR) 20 mg tablet Take by mouth q 24 HR. Problem List As Of Date 03/02/2023 Noted Resolved MARCY (obstructive sleep apnea) [G47.33] 11/08/2022 HTN (hypertension) [I10] 11/08/2022 HLD (hyperlipidemia) [E78.5] 11/08/2022 Encounter Status:Closed by RODRI BENOIT on 03/03/23 [facility] CNOVon 02-17-2023 CNOV Office Visit (DMFPCF ) -------- UZMA DURAN ([id number]) 1945 F Date Time Provider Department 02/17/23 11:00 AM RODRI BENOIT DMFPCF During your visit today, we recorded the following information about you: Rodri Benoit, DMD 02/28/2023 1:51 PM Signed DENTISTRY AND MAXILLOFACIAL PROSTHETICS 02/17/2023 Uzma Duran [id number] SUBJECTIVE: This 77 year old female presents for insertion of her oral appliance for obstructive sleep apnea. We have reviewed the risks, benefits, alternatives, limitations, and reasonable expectations of oral appliance therapy. Consent form reviewed, signed, and copy offered to patient. She demonstrates understanding and wishes to proceed. Medical history:reviewed, no change.. OBJECTIVE: Try-in and adjustment of the HAMIDA PH appliance. Check and adjustment of bilateral balancing occlusal stops. Midlines confirmed with and without the appliance. MOG x 2 tried in and fit confirmed. Photos taken. ASSESSMENT: Instructions given and reviewed for use and care of the appliance. Patient demonstrated ability to insert and remove effectively. Patient demonstrated ability to complete mandibular repositioning. Warranty information given. The patient is comfortable with the appliance in place. PLAN: We reviewed the importance of daily adherence with the prescribed morning exercises and reviewed the recommended protocol. Begin oral appliance therapy and monitor for symptomatic improvement. Next appointment: one week(s) virtual. Call sooner if use becomes painful or with any other concerns. Rodri Benoit, RANJEET Referring Provider: NAOMI TREJO [[id number]] Allergies As of Date: 02/17/2023 Noted Allergy Reaction PENICILLINS 02/01/2022 2 - Rash Date Reviewed: 02/10/2023 Reviewed by: Harley Hoffman APRN.MEN'S GOLF COACH - Fully Assessed Reason for Visit: Sleep Apnea [1361] Primary Visit Diagnosis:MARCY (obstructive sleep apnea) [G47.33] Order(s):ORAL DEVICE/APPLIANCE CUSFAB [E0486] Order #: [id number]: 1 Prescriptions as of 02/28/2023 - losartan (COZAAR) 50 mg tablet Take 50 mg by mouth every 24 hours. - atorvastatin (LIPITOR) 20 mg tablet Take by mouth q 24 HR. Problem List As Of Date 02/17/2023 Noted Resolved MARCY (obstructive sleep apnea) [G47.33] 11/08/2022 HTN (hypertension) [I10] 11/08/2022 HLD (hyperlipidemia) [E78.5] 11/08/2022 Encounter Status:Closed by RODRI BENOIT on 02/28/23 [facility] Laura 02-10-2023 CNOV Office Visit ([facility] ) -------- UZMA DURAN ([id number]) 1945 F Date Time Provider Department 02/10/23 1:00 PM LORENA URBINA [facility] During your visit today, we recorded the following information about you: Blood pressure Weight Height 140/90 63 kg 1.524 m Lorena Urbina MD 02/12/2023 9:51 PM Signed Female Pelvic Medicine AND Reconstructive Surgery Post-Op Visit Uzma Duran is a 77 year old female who presents for a 12 Week post-op check s/p Robotic assisted-Laparoscopic sacrocolpopexy, Posterior colporrhaphy, Perineorrhaphy, and Cystoscopy. HPI: Pt has had some urinary leakage since surgery. Pt states she notices leaking most with the feeling of urge. However, urine would be unexpected and it would trickle down. She states that she does not have a great sense of smell, so she is unsure if it smelled like urine on the panty liner she was wearing. On the pad, it would be kind of yellowish/clearish but she was unsure if it was from the vitamins she has been taking. This past week, pt states that the leakage has improved and she has not had to wear a panty liner. She gets up at least 2 times at night to urinate. She has had this prior to her surgery. During the day, she voids every 3-4 hours. She does not have as much urgency during the day. She drinks tea and water during the day. She states she has tried to reduce her liquid intake prior to bed and this has not helped her nocturia. She also states that if she wears a pad a night, it would be dry in the morning. She denies any urinary leakage with cough, sneezing, and bending over. Patient denies any pain or aches in the pelvic area. Post-op complications: no Bleeding: no Pain: no If you had pain related to your prolapse before surgery, has your pain resolved? Not Applicable Abnormal vaginal discharge: no PFDI-20 Do you: Usually experience pressure in the lower abdomen? No (0) Usually experience heaviness or dullness in the pelvic area? No (0) Usually have a bulge or something falling out that you can see or feel in your vaginal area? No (0) Ever have to push on the vagina or around the rectum to have or complete a bowel movement? No (0) Usually experience a feeling of incomplete bladder emptying? Yes, somewhat bothersome (2) Ever have to push up on a bulge in the vaginal area with your fingers to start or complete urination? No (0) Feel you need to strain too hard to have a bowel movement? No (0) Feel you have not completely emptied your bowels at the end of a bowel movement? No (0) Usually lose stool beyond your control if your stool is well formed? No (0) Usually lose stool beyond your control if your stool is loose? No (0) Usually lose gas from the rectum beyond your control? No (0) Usually have pain when you pass your stool? No (0) Experience a strong sense of urgency and have to haynes to the bathroom to have a bowel movement? Yes, somewhat bothersome (2) Does part of your bowel ever pass through the rectum and bulge outside during or after a bowel movement? No (0) Usually experience frequent urination? Yes, somewhat bothersome (2) Usually experience urine leakage associated with a feeling of urgency, that is, a strong sensation of needing to go to the bathroom? Yes, somewhat bothersome (2) Usually experience urine leakage related to coughing, sneezing or laughing? Yes, somewhat bothersome (2) Usually experience small amounts of urine leakage (that is, drops)? Yes, somewhat bothersome (2) Usually experience difficulty emptying your bladder? Yes, not at all bothersome (1) Usually experience pain or discomfort in the lower abdomen or genital region? No (0) [place] Machine Operator offered: Patient accepts, visit chaperoned by scribe. OBJECTIVE: Vitals: BP 140/90 Ht 152.4 cm (5') Wt 63 kg (139 lb) BMI 27.15 kg/m? General: Well appearing, alert, in no acute distress, well-hydrated, well nourished. Abdomen: Abdomen soft, non-tender, surgical incisions well-healed Pelvic: Ext. Genitalia: irritation from daily pad use Vagina: Good vaginal support and Surgical incisions are well healed POP-Q: Prolapse Noted: No Aa = -3.0 Ba = -3.0 C = -7.5 gh = 2.5 pb = 3.0 tvl = 7.5 Ap = -3.0 Bp = -3.0 D = N/A Cervix: Absent Urethra: Normal Bimanual: No tenderness Rectovaginal: Deferred ASSESMENT: Uzma Duran is a 77 year old female who is post-op; stable and doing well post-operative course uncomplicated PLAN: 1) S/P Gynecological Surgery: - May resume normal activities. - May resume intercourse, if desires. - Operative findings and pathology report reviewed, a copy was given to the patent for their records. - Patient expressed understanding. 2) Nocturia: - We discussed behavioral modifications including elevating legs 60-90 minutes prior to bed and overactive bladder medications. At th (more content not included)... [facility] Laboratory - Microbiology an d Antimicrobial susceptibilityon 01-03-2023 SARS-CoV-2 (COVID-19) RdRp gene COOPER+probe Ql (Resp) Not detected Not Detected [facility] Comment on above: Testing was performe d using the Dobbs ID NOW COVID-19 assay on the ID NOW platform. This test has not been approved for use in asymptomatic patients and its performance in this patient population has not been evaluated. Negative results do not rule out the presence of SARS-CoV-2/COVID-19. SARS-CoV-2 (COVID-19) RdRp g adele COOPER+probe Ql (Resp)on 01-03-2023 Interpretation and review of laboratory results Normal [facility] CNOVon 12-19-2022 CNOV Office Visit (DMFPMN ) -------- UZMA DURAN ([id number]) 1945 F Date Time Provider Department 12/19/22 9:30 AM RODRI BENOIT DMFPMN During your visit today, we recorded the following information about you: Rodri Benoit DMD 12/21/2022 10:17 AM Signed DENTISTRY AND MAXILLOFACIAL PROSTHETICS 12/19/2022 Uzma Duran SUBJECTIVE: This 76 year old female presents to begin fabrication of her oral mandibular advancement device. We have reviewed the risks, benefits, alternatives, and personnel involved with treatment. She demonstrates understanding and wishes to proceed. Medical history:reviewed, no change.. OBJECTIVE: Maxillary and mandibular digital impressions taken. Protrusive bite registration made at 50% at on the Progauge. MT bite registration ASSESSMENT/PLAN: The patient has tolerated today's appointment well and will return for insertion of the appliance. Rx for HAMIDA PH appliance [facility]. Rodri Benoit DMD Referring Provider: NAOMI TREJO [[id number]] Allergies As of Date: 12/19/2022 Noted Allergy Reaction PENICILLINS 02/01/2022 2 - Rash Date Reviewed: 12/19/2022 Reviewed by: Wendie Graves Dent-Sharon - Fully Assessed Reason for Visit: Sleep Apnea [1361] Primary Visit Diagnosis:MARCY (obstructive sleep apnea) [G47.33] Order(s):UNLISTED SPECIAL SERVICE OR REPORT [06521] Order #: [id number]: 1 Prescriptions as of 12/21/2022 - losartan (COZAAR) 50 mg tablet Take 50 mg by mouth every 24 hours. - atorvastatin (LIPITOR) 20 mg tablet Take by mouth q 24 HR. Problem List As Of Date 12/19/2022 Noted Resolved MARCY (obstructive sleep apnea) [G47.33] 11/08/2022 HTN (hypertension) [I10] 11/08/2022 HLD (hyperlipidemia) [E78.5] 11/08/2022 Encounter Status:Closed by RODRI BENOIT on 12/21/22 [facility] Laura 12-05-2022 CNOV Office Visit (DMFPMN ) -------- UZMA DURAN ([id number]) 1945 F Date Time Provider Department 12/05/22 11:00 AM RODRI BENOIT DMFPMN During your visit today, we recorded the following information about you: Rodri Benoit, DMD 12/05/2022 1:44 PM Signed [facility], Oral Surgery, AND Maxillofacial Prosthetics 12/05/2022 Uzma Duran SUBJECTIVE: This 76 year old female presents for consultation at the request of Naomi Trejo MD for evaluation of a possible oral mandibular advancement device for the treatment of MARCY. The patient tried CPAP 6 years ago for two months but could not use. She then got an oral appliance with a dentist and reports that it has worked well over the years. However, she is worried that it is 5 years old and might break. She also notes that it is not working quite as well as it once did. She learned that was a participating medicare provider and prefers not to pay out of pocket again for a new one. [place] Sleepiness Scale 12/04/2022 07/03/2022 03/06/2022 Score 5 (No daytime sleepiness) 3 (No daytime sleepiness) 3 (No daytime sleepiness) Bed partner? NO Snoring? YES Waking up gasping? NO Used CPAP in the past? YES Wake up during night? YES Daytime fatigue? NO Activities affected by fatigue? NO Hours of sleep per night? 7-8 Date of last dental exam? 07/2022 History of TMD? NO Current jaw/tooth pain? NO ACTIVE PROBLEM LIST Marcy (Obstructive Sleep Apnea) Htn (Hypertension) Hld (Hyperlipidemia) Current Outpatient Medications on File Prior to Visit Medication Sig docusate sodium (COLACE) 100 mg capsule Take 1 capsule by mouth twice daily. polyethylene glycol 3350 (MIRALAX) 17 gram/dose powder Take 17 g by mouth once daily. Dissolve dose in 4 - 8 ounces of liquid and take as directed. losartan (COZAAR) 50 mg tablet Take 50 mg by mouth every 24 hours. atorvastatin (LIPITOR) 20 mg tablet Take by mouth q 24 HR. No current facility-administered medications on file prior to visit. ALLERGIES Allergen Reactions Penicillins Rash OBJECTIVE: REVIEW OF SLEEP STUDY RESULTS: DATE MEAN O2% BASILIA O2% % BELOW 90% SUP AHI OFF SUP AHI AVG AHI AVG HR MAX HR 05/10/22 93 81 4.2 12 6.2 9.6 66 94 General appearance: pleasant, no distress. Pimentel Tongue Position: 3 Uvula: med Palatopharyngeal crowding: mild Maxillary kyaw: yes Mandibular lingual kyaw: bilateral Ridging of buccal mucosa: mild Scalloping of tongue: mild Bruxism: Mild Bilateral posterior open bite Existing appliance - JOCELYN DATE 12/05/2022 Mandibular ROM 48mm Midline At midline Right lateral 10mm Left lateral 10mm Protrusive ROM 9mm Overjet 0mm Overbite 0mm Angle class Right I Angle class Left I Crossbite #2-7, #11-15 Recession minimal Mobility none Open contacts , TMJ/muscle exam: no clicking, popping, or pain Radiographic Findings: Panorex taken today Thin condyle on the right Maxillary sinuses are clear bilaterally Alveolar bone levels show less than 50% bone loss ASSESSMENT: This pleasant 76 year old female has a history of MARCY diagnosed by Dr. Naomi Trejo. The medical history was reviewed and discussed with the patient and it was determined the patient is a candidate for a mandibular advancement device. Discussed the risks, benefits, alternatives, limitations, and reasonable expectations of oral appliance therapy with specific discussion focused on changes in occlusion, tooth movement and mobility, damage to teeth, facial pain, and TMD. Uzma Duran expressed understanding and agreed to proceed. All questions answered. PLAN: The patient will move forward with insurance predetermination and will return for impressions and records pending approval. The treatment plan consists of impressions and delivery of the oral appliance followed by continual evaluation of the patient's mandibular position until follow-up sleep study to confirm efficacy. The opinions/findings will be communicated to the referring provider via shared electronic medical record. Rodri Benoit DMD Referring Provider: NAOMI TREJO [[id number]] Allergies As of Date: 12/05/2022 Noted Allergy Reaction PENICILLINS 02/01/2022 2 - Rash Date Reviewed: 11/16/2022 Reviewed by: Yudy Awan RN - Fully Assessed Reason for Visit: Sleep Apnea [1361] Visit Diagnoses:MARCY (obstructive sleep apnea) [G47.33] Difficulty with CPAP use [Z78.9] Order(s):CONSULT TO DENTISTRY [] Order #: [id number]: 1 UNLISTED SPECIAL SERVICE OR REPORT [21634] Order #: [id number]: 1 FUTURE ORAL DEVICE/APPLIANCE CUSFAB [E0486] Order #: [id number]: 1 FUTURE ONLINE POST OP VISIT ($0) [1724784] Order #: [id number]: 1 FUTURE POSTOP FOLLOW UP VISIT RELATED TO ORIGINAL PX [37062] Order #: [id number]: 1 FUTURE Prescriptions as of 12/05/2022 - doc (more content not included)... [facility] -------- RENEE,DORIS ([id number]) 1945 F Date Time Provider Department 12/02/22 LORENA URBINA TRMN During your visit today, we recorded the following information about you: Cyndi Chaney 12/02/2022 11:53 AM Signed Patient: Uzma Duran : 1945 Provider: Lorena Urbina MD Caller Phone #: [phone] (home) [phone] (cell) Reason for call: pt post op 2 wks, still having leakage, very light yellow, changing pad 3 times/day. No blood, just drainage. Hard to tell where it's coming from. Vagina or urethra? Should she start using vaginal cream? Please call patient Message routed to nurse triage Date of next visit: Appointments for Next 60 Days Date Time Provider Location Dept Phone 12/05/2022 11:00 AM RODRI BENOIT [facility] [phone] 12/28/2022 1:45 PM HARLEY HOFFMAN [phone] Jolie Han RN 12/02/2022 12:09 PM Signed Called patient verified name and Surgery 11/16/2022 Procedure(s): Robotic assisted-Laparoscopic sacrocolpopexy, Posterior colporrhaphy, Perineorrhaphy, and Cystoscopy States she is having some light discharge, drainage not sure if its urine or discharge Only wear a light liner Advised her that this is normal and should subside over the next few weeks Advised her to continue to monitor for worsening side effect and a change in symptoms Otherwise not to worry Also was questioning about her vaginal cream States she forgot and never started the cream pre op and asking if she could start Advised her that she is ok to start her cream She will use a pea sized amount for 2 weeks then 3 times per week Patient understood and was thankful for the call Will reach out if she needs to prior to her post op 12/28/2022 Jolie Han RN Allergies As of Date: 12/02/2022 Noted Allergy Reaction PENICILLINS 02/01/2022 2 - Rash Date Reviewed: 11/16/2022 Reviewed by: Yudy Awan, ANI - Fully Assessed Reason for Visit: Patient Question [2847] Prescriptions as of 12/02/2022 - docusate sodium (COLACE) 100 mg capsule Take 1 capsule by mouth twice daily. - polyethylene glycol 3350 (MIRALAX) 17 gram/dose powder Take 17 g by mouth once daily. Dissolve dose in 4 - 8 ounces of liquid and take as directed. - losartan (COZAAR) 50 mg tablet Take 50 mg by mouth every 24 hours. - atorvastatin (LIPITOR) 20 mg tablet Take by mouth q 24 HR. Problem List As Of Date 12/02/2022 Noted Resolved MARCY (obstructive sleep apnea) [G47.33] 11/08/2022 HTN (hypertension) [I10] 11/08/2022 HLD (hyperlipidemia) [E78.5] 11/08/2022 Encounter Status:Closed by JOLIE HAN RN on 12/02/22 Normal [facility] Basic metabolic 2000 panelon 11-08-2022 Anion gap [Moles/Vol] 11 mmol/L 9 - 18 mmol/L [facility] Calcium [Mass/Vol] 9.8 mg/dL 8.5 - 10. 2 mg/dL [facility] Chloride [Moles/Vol] 104 mmol/L 97 - 10 5 mmol/L [facility] CO2 [Moles/Vol] 25 mmol/L 22 - 30 mmol/L [facility] Creatinine [Mass/Vol] 1.02 mg/dL High 0.58 - 0.96 mg/dL [facility] Estimated Glomerular Filtration Rate 57 mL/min/1.73m Low >=60 mL/min/1.73m [facility] Glucose [Mass/Vol] 90 mg/dL 74 - 99 mg/dL [facility] Potassium [Moles/Vol] 4.8 mmol/L 3.7 - 5.1 mmol/L [facility] Sodium [Moles/Vol] 140 mmol/L 136 - 144 mmol/L [facility] Urea nitrogen [Mass/Vol] 26 mg/dL High 7 - 21 mg/dL [facility] CBC W Auto Differential pane l (Bld)on 11-08-2022 Basophils (Bld) [#/Vol] 0.04 10*3/uL <0.11 k/uL [facility] Basophils/100 WBC (Bld) 0.5 % [facility] Differential cell count method Nom (Bld) Auto [facility] Eosinophils (Bld) [#/Vol] 0.19 10*3/uL <0.46 k/uL [facility] Eosinophils/100 WBC (Bld) 2.4 % [facility] Erythrocyte distribution width (RBC) [Ratio] 12.4 % 11.5 - 15.0 % [facility] Hematocrit (Bld) [Volume fraction] 39.5 % 36.0 - 46.0 % [facility] Hemoglobin (Bld) [Mass/Vol] 13.3 g/dL 11.5 - 15.5 g/dL [facility] Immature granulocytes (Bld) [#/Vol] <0.10 k/uL [facility] Immature granulocytes/100 WBC (Bld) 0.3 % [facility] Lymphocytes (Bld) [#/Vol] 1.81 10*3/uL 1.00 - 4.00 k/uL [facility] Lymphocytes/100 WBC (Bld) 22.7 % [facility] MCH (RBC) [Entitic mass] 32.4 pg 26.0 - 34.0 pg [facility] MCHC (RBC) [Mass/Vol] 33.7 g/dL 30.5 - 36.0 g/dL [facility] MCV (RBC) [Entitic vol] 96.1 fL 80.0 - 100.0 fL [facility] Monocytes (Bld) [#/Vol] 0.61 10*3/uL <0.87 k/uL [facility] Monocytes/100 WBC (Bld) 7.6 % [facility] Neutrophils (Bld) [#/Vol] 5.31 10*3/uL 1.45 - 7.50 k/uL [facility] Neutrophils/100 WBC (Bld) 66.5 % [facility] Nucleated RBC (Bld) [#/Vol] <0.01 k/uL [facility] Nucleated RBC/100 WBC (Bld) [Ratio] 0.0 /100 WBC [facility] Platelet mean volume (Bld) [Entitic vol] 8.4 fL Low 9.0 - 12.7 fL [facility] Platelets (Bld) [#/Vol] 221 10*3/uL 150 - 400 k/uL [facility] RBC (Bld) [#/Vol] 4.11 10*6/uL 3.90 - 5.2 0 m/uL [facility] WBC (Bld) [#/Vol] 7.98 10*3/uL 3.70 - 11. 00 k/uL [facility] UA DIP B/Oon 11-08-2022 Bilirubin Ql (U) Negative Neg [facility] Color/Appearance yellow clear [facility] Glucose Ql (U) Negative Neg mg/dL [facility] Hemoglobin Ql (U) Negative Neg [facility] Ketones Ql (U) Negative Neg [facility] Leukocytes ne Neg [facility] Nitrite Ql (U) Negative Neg [facility] pH (U) 6 [pH] 4.5 - 8.0 [facility] Protein.monoclonal (U) [Mass/Vol] Negative Neg mg/dL [facility] Specific [place], Ur 1.010 1.005 - 1.030 [facility] Urobilinogen, Urine reji Normal (<1.1) EU [facility] BASIC METABOLIC PANELon 05-0 Anion gap [Moles/Vol] 12 mmol/L Normal 10 - 20 [facility] Comment on above: Performed By: #### B MP #### [address] [address] Calcium [Mass/Vol] 9.5 mg/dL Normal 8.6 - 10.3 [facility] Comment on above: Performed By: #### B MP #### [address] [address] Chloride [Moles/Vol] 103 mmol/L Normal 98 - [address] [facility] Comment on above: Performed By: #### B MP #### [address] [address] Creatinine [Mass/Vol] 0.85 mg/dL Normal 0.50 - 1.05 [facility] Comment on above: Performed By: #### B MP #### [address] [address] GFR/1.73 sq M.predicted among non-blacks MDRD (S/P/Bld) [Vol rate/Area] 71 mL/min/{1.73_m2} Normal >90 [facility] Comment on above: Result Comment: CALC ULATIONS OF ESTIMATED GFR ARE PERFORMED USING THE 2020 CKD-EPI STUDY REFIT EQUATION WITHOUT THE RACE VARIABLE FOR THE IDMS-TRACEABLE CREATININE METHODS. https://jasn.asnjournals.org/content/early//ASN.25208 73325 Performed By: #### B MP #### [address] [address] Glucose [Mass/Vol] 72 mg/dL Low 74 - 99 [facility] Comment on above: Performed By: #### B MP #### [address] [address] HCO3 (Bld) [Moles/Vol] 27 mmol/L Normal 21 - 32 [facility] Comment on above: Performed By: #### B MP #### [address] [address] Potassium [Moles/Vol] 3.9 mmol/L Normal 3.5 - 5.3 [facility] Comment on above: Performed By: #### B MP #### [address] [address] Sodium [Moles/Vol] 138 mmol/L Normal 136 - 145 [facility] Comment on above: Performed By: #### B MP #### [address] [address] Urea nitrogen [Mass/Vol] 20 mg/dL Normal 6 - 23 [facility] Comment on above: Performed By: #### B MP #### [address] [address] Lab Specimen Source [facility] Comment on above: Performed By: #### B MP #### [address] [address] DIGITAL MAMM SCREENING W/ TO Betts 05-23-2022 DIGITAL MAMM SCREENING W/ LATISHA Patient Name: UZMA DURAN STUDY: Digital mammography screening with latisha; 05/23/2022 1:40 pm ACCESSION NUMBER(S): [id number] ORDERING CLINICIAN: CYNDI HORN INDICATION: Screening. COMPARISON: Comparison is made to prior digital mammograms dated 05/20/2021 FINDINGS: CC and MLO 2D digital mammograms and digital breast tomosynthesis images were obtained of the bilateral breasts. 3-D volume images were reconstructed in 4 views at an independent workstation as 1 mm slices through the breasts in both the CC and MLO projections. There are areas of scattered fibroglandular tissue. No discrete mass or focal asymmetry is identified. No suspicious microcalcifications or foci of architectural distortion are seen. There has been no significant change. This study was interpreted with CAD. IMPRESSION: No mammographic evidence of malignancy. BI-RADS CATEGORY: Category: 1 - Negative. Recommendation: 1 Year Screening. Electronically signed by: CHRIS PIPER MD [facility] Follow-up visit Diagnoses/Problems Hypertension (401.9) (I10) Severe obstructive sleep apnea (327.23) (G47.33) Orders Hypertension Start: amLODIPine Besylate 5 MG Oral Tablet; Take 1 tablet daily Patient Discussion/Summary As per hpi, fup 1 mos, keep bp log, call concerns. Chief Complaint Chief Complaint: UZMA DURAN is here with a chief complaint of C/O ELEVATED BP SINCE LAST VISIT WITH DERIK. BROUGHT HOME BP CUFF FOR COMPARISON BP 154/94. History of Present Illness Uzma presents for concerns of elevated blood pressure. She was here in January for check up, was elevated initially, and then normal on repeat . Went to dentist two days later and had two elevated readings. She feels fine. She hasn't been exercising as much as she normally does. She has known severe sleep apnea, she chose to treat with a dental appliance. Hasn't been working well, and saw sleep specialist at two days ago. They are in the process of ordering a new appliance for her. Has had some mild ankle edema as well Discussed the role of sleep apnea in elevated bp. Discussed risks of untreated hypertension . Recommend based on meeting criteria for htn, we treat, side effects discussed. She is leaving for [place] for two months next week, so will monitor with her home bp cuff and fup in office when they get back. Review of Systems Constitutional: as noted in HPI. Cardiovascular: no chest pain. Respiratory: no shortness of breath during exertion. Musculoskeletal: no arthralgias . occasional leg cramps posterior thigh when sitting in recliner. Neurological: as noted in HPI. Psychiatric: no anxiety and no depression. Active Problems 10 year risk of MT or stroke 7.5% or greater (V49.89) (Z91.89) Elevated glucose (790.29) (R73.09) Hyperlipidemia (272.4) (E78.5) Menopause (627.2) (Z78.0) Multiple thyroid nodules (241.1) (E04.2) Osteoporosis (733.00) (M81.0) Screening for breast cancer (V76.10) (Z12.39) Severe obstructive sleep apnea (327.23) (G47.33) Tubular adenoma of colon (211.3) (D12.6) Past Medical History 10 year risk of MT or stroke 7.5% or greater (V49.89) (Z91.89) Elevated glucose (790.29) (R73.09) Hyperlipidemia (272.4) (E78.5) Severe obstructive sleep apnea (327.23) (G47.33) Surgical History History of Colonoscopy Managed By: Bhaskar Davies (Internal Medicine) History of Hysterectomy Family History Family history of asthma (V17.5) (Z82.5) Family history of diabetes mellitus (V18.0) (Z83.3) Family history of osteoporosis (V17.81) (Z82.62) Family history of Primary malignant neoplasm of lung Family history of cardiac disorder (V17.49) (Z82.49) Family history of hypertension (V17.49) (Z82.49) Family history of Primary malignant neoplasm of prostate Family history of Psychological disorder Social History Former smoker (V15.82) (Z87.891) No caffeine use No illicit drug use Occasional alcohol use Patient has active durable power of consumer attorney (DPOA) designee for healthcare Patient has living will (V49.89) (Z78.9) Allergies Penicillins Rash; Recorded By: Marilee Ramon; 02/14/2019 7:57:52 AM Current Meds Medication NameInstructionReason Atorvastatin Calcium 20 MG Oral TabletTAKE 1 TABLET DAILY.10 year risk of MT or stroke 7.5% or greater, Hyperlipidemia Fish Oil OIL1,000mg. 1 capsule twice dailyHealth Maintenance Multi Vitamin TABSHealth Maintenance Probiotic CAPSHealth Maintenance Vitamin B 12 TABSHealth Maintenance Unspecified HomeopathicELDEBERRY SYRUP Viactiv CHEW Zinc 25 MG TABS Vitals Vital Signs Recorded: 10Mar2022 10:50AM Heart Rate88 Trtusbma102, LUE, Sitting Tcrshzhoh55, LUE, Sitting Height5 ft Rkhiup800 lb 2 oz BMI Rbwpxhkqkn13.15 kg/m2 BSA Calculated1.62 Tobacco Useb) No Falls Screening (Age 18+)a) No falls within the last year Physical Exam Constitutional: Alert and in no acute distress. Well developed, well nourished. Head and Face: Head and face: Normal. Cardiovascular: Heart rate and rhythm were normal, normal S1 and S2, no gallops, no murmurs and no pericardial rub. Musculoskeletal: Gait and station: Normal. 'Scores and Scales' Signatures Electronically signed by : Cyndi Horn MD; Mar 10 2022 11:18AM EST (Author) Normal [place] Tobacco Screening.on 023 Fall risk assessment a) [facility] falls [facility] the last year [facility] use status [facility] b) No [facility] Work Phone: Medicare Annual Wellness Vis ronnie 02-03-2022 Medicare Annual Wellness Visit History of Present Illness The patient is being seen for the subsequent annual wellness visit. Past Medical, Surgical and Family History: reviewed and updated in chart. Medications and Supplements: Review of all medications by a prescribing practitioner or clinical pharmacist (such as prescriptions, OTCs, herbal therapies and supplements) documented in the medical record. No, the patient is not using opioids. Patient Self Assessment of Health Status: excellent. Tobacco use: Non-User Alcohol use: Non-User Illicit drug use: Non-User Current diet: well balanced diet and Heart Healthy Diet. Exercise Frequency: regularly. Depression/Suicide Screening: . During the past 2 weeks, the patient has not felt down, depressed or hopeless. During the past 2 weeks, the patient has not felt little interest or pleasure in doing things. Hearing Impairment: none. Cognitive Impairment: No cognitive impairment observed. Bathing: performs independently. Dressing: performs independently. Walking: performs independently. Managing Finances: performs independently. Shopping: performs independently. Managing Medications: performs independently. Housework / Basic Home Maintenance: performs independently. *Active Problems 10 year risk of MT or stroke 7.5% or greater (V49.89) (Z91.89) Encounter for annual wellness exam in Medicare patient (V70.0) (Z00.00) Menopause (627.2) (Z78.0) Multiple thyroid nodules (241.1) (E04.2) Screening for breast cancer (V76.10) (Z12.39) Tubular adenoma of colon (211.3) (D12.6) Elevated glucose (790.29) (R73.09) Hyperlipidemia (272.4) (E78.5) Severe obstructive sleep apnea (327.23) (G47.33) Osteoporosis (733.00) (M81.0) Past Medical History 10 year risk of MT or stroke 7.5% or greater (V49.89) (Z91.89) Elevated glucose (790.29) (R73.09) Hyperlipidemia (272.4) (E78.5) Severe obstructive sleep apnea (327.23) (G47.33) Surgical History History of Colonoscopy Managed By: Bhaskar Davies (Internal Medicine) History of Hysterectomy Family History Family history of asthma (V17.5) (Z82.5) Family history of diabetes mellitus (V18.0) (Z83.3) Family history of osteoporosis (V17.81) (Z82.62) Family history of Primary malignant neoplasm of lung Family history of cardiac disorder (V17.49) (Z82.49) Family history of hypertension (V17.49) (Z82.49) Family history of Primary malignant neoplasm of prostate Family history of Psychological disorder Social History Former smoker (V15.82) (Z87.891) No caffeine use No illicit drug use Occasional alcohol use Patient has active durable power of consumer attorney (DPOA) designee for healthcare Patient has living will (V49.89) (Z78.9) *Allergies Penicillins Rash; Recorded By: Marilee Ramon; 02/14/2019 7:57:52 AM *Current Meds Medication NameInstruction Fish Oil OIL1,000mg. 1 capsule twice daily Multi Vitamin TABS Probiotic CAPS Unspecified HomeopathicELDEBERRY SYRUP Viactiv CHEW Vitamin B 12 TABS Zinc 25 MG TABS Immunizations Influenza --- Series1: Jan 03 2008 12:00AM (62y); Series2: Dec 16 2008 12:00AM (62y); Series3: Feb 07 2015 12:00AM (69y); Series4: Feb 15 2017 12:00AM (71y); Series5: Dec 11 2017 12:00AM (71y); Series6: Jan 07 2019 12:00AM (73y); Series7: 27-Nov-2019 (73y); Series8: Dec 08 2020 12:00AM (74y); Series9: 31-Dec-2021 (76y) Moderna COVID-19 Bival Booster 50 MCG/0.5ML Intramuscular Suspension --- Series1: 14-Jan-2022 (76y) Moderna COVID-19 Vaccine 100 MCG/0.5ML Intramuscular Suspension --- Series1: May 05 2020 12:00AM (74y); Series2: Jun 02 2020 12:00AM (74y); Series3: Jan 14 2021 12:00AM (75y); Series4: 21-Jul-2021 (75y) PCV --- Series1: 05-Mar-2015 (69y) PPSV --- Series1: 18-Oct-2013 (67y) Shingrix 50 MCG/0.5ML Intramuscular Suspension Reconstituted --- Series1: 27-Nov-2019 (73y); Series2: 17-Feb-2020 (74y) Td/DT --- Series1: Dec 16 2005 12:00AM (59y) Patient Care Team Care Team MemberRoleSpecialtyOffic rigo Horn MD, Cyndi [phone] Justina SONI, Cyndi [phone] Patient Discussion/Summary Risk Factors Identified During Visit: Weight: BMI < 18.5 or > 25. Influenza: influenza vaccine was previously given. Pneumovax 23/Prevnar 15: Pneumovax 23/Prevnar 15 vaccine was previously given. Prevnar 20: Prevnar 20 vaccine N/A. Shingles Vaccine: Shingles vaccine was previously given. Breast cancer screening: screening is current. Cervical cancer screening: screening not indicated. Osteoporosis screening: screening is current. Colorectal cancer screening: screening is current. HIV screening: screening not indicated. 'Scores and Scales' Medicare wellness scores and scales_: Signatures Electronically signed by : Cyndi Horn MD; Feb 03 2022 12:27PM EST (Author) Normal [facility] Medicare Annual Wellness Visit History of Present Illness The patient is being seen for the subsequent annual wellness visit. Past Medical, Surgical and Family History: reviewed and updated in chart. Medications and Supplements: Review of all medications by a prescribing practitioner or clinical pharmacist (such as prescriptions, OTCs, herbal therapies and supplements) documented in the medical record. No, the patient is not using opioids. Patient Self Assessment of Health Status: excellent. Tobacco use: Non-User Alcohol use: Non-User Illicit drug use: Non-User Current diet: well balanced diet and Heart Healthy Diet. Exercise Frequency: regularly. Depression/Suicide Screening: . During the past 2 weeks, the patient has not felt down, depressed or hopeless. During the past 2 weeks, the patient has not felt little interest or pleasure in doing things. Hearing Impairment: none. Cognitive Impairment: No cognitive impairment observed. Bathing: performs independently. Dressing: performs independently. Walking: performs independently. Managing Finances: performs independently. Shopping: performs independently. Managing Medications: performs independently. Housework / Basic Home Maintenance: performs independently. Advance directives:. Advance Care Planning discussed and documented in the medical record, patient did not wish or was not able to name a surrogate decision maker or provide an advance care plan. Patient has living will. Patient has healthcare POA. *Active Problems 10 year risk of MT or stroke 7.5% or greater (V49.89) (Z91.89) Encounter for annual wellness exam in Medicare patient (V70.0) (Z00.00) Menopause (627.2) (Z78.0) Multiple thyroid nodules (241.1) (E04.2) Screening for breast cancer (V76.10) (Z12.39) Tubular adenoma of colon (211.3) (D12.6) Elevated glucose (790.29) (R73.09) Hyperlipidemia (272.4) (E78.5) Severe obstructive sleep apnea (327.23) (G47.33) Osteoporosis (733.00) (M81.0) Past Medical History 10 year risk of MT or stroke 7.5% or greater (V49.89) (Z91.89) Elevated glucose (790.29) (R73.09) Hyperlipidemia (272.4) (E78.5) Severe obstructive sleep apnea (327.23) (G47.33) Surgical History History of Colonoscopy Managed By: Bhaskar Davies (Internal Medicine) History of Hysterectomy Family History Family history of asthma (V17.5) (Z82.5) Family history of diabetes mellitus (V18.0) (Z83.3) Family history of osteoporosis (V17.81) (Z82.62) Family history of Primary malignant neoplasm of lung Family history of cardiac disorder (V17.49) (Z82.49) Family history of hypertension (V17.49) (Z82.49) Family history of Primary malignant neoplasm of prostate Family history of Psychological disorder Social History Former smoker (V15.82) (Z87.891) No caffeine use No illicit drug use Occasional alcohol use Patient has active durable power of consumer attorney (DPOA) designee for healthcare Patient has living will (V49.89) (Z78.9) *Allergies Penicillins Rash; Recorded By: Marilee Ramon; 02/14/2019 7:57:52 AM *Current Meds Medication NameInstruction Fish Oil OIL1,000mg. 1 capsule twice daily Multi Vitamin TABS Probiotic CAPS Unspecified HomeopathicELDEBERRY SYRUP Viactiv CHEW Vitamin B 12 TABS Zinc 25 MG TABS Immunizations Influenza --- Series1: Jan 03 2008 12:00AM (62y); Series2: Dec 16 2008 12:00AM (62y); Series3: Feb 07 2015 12:00AM (69y); Series4: Feb 15 2017 12:00AM (71y); Series5: Dec 11 2017 12:00AM (71y); Series6: Jan 07 2019 12:00AM (73y); Series7: 27-Nov-2019 (73y); Series8: Dec 08 2020 12:00AM (74y); Series9: 31-Dec-2021 (76y) Moderna COVID-19 Bival Booster 50 MCG/0.5ML Intramuscular Suspension --- Series1: 14-Jan-2022 (76y) Moderna COVID-19 Vaccine 100 MCG/0.5ML Intramuscular Suspension --- Series1: May 05 2020 12:00AM (74y); Series2: Jun 02 2020 12:00AM (74y); Series3: Jan 14 2021 12:00AM (75y); Series4: 21-Jul-2021 (75y) PCV --- Series1: 05-Mar-2015 (69y) PPSV --- Series1: 18-Oct-2013 (67y) Shingrix 50 MCG/0.5ML Intramuscular Suspension Reconstituted --- Series1: 27-Nov-2019 (73y); Series2: 17-Feb-2020 (74y) Td/DT --- Series1: Dec 16 2005 12:00AM (59y) Patient Care Team Care Team MemberRoleSpecialtyOffic rigo Horn MD, Cyndi [phone] Justina SONI, Cyndi [phone] Patient Discussion/Summary Risk Factors Identified During Visit: Weight: BMI < 18.5 or > 25. Influenza: influenza vaccine was previously given. Pneumovax 23/Prevnar 15: Pneumovax 23/Prevnar 15 vaccine was previously given. Prevnar 20: Prevnar 20 vaccine N/A. Shingles Vaccine: Shingles vaccine was previously given. Breast cancer screening: screening is current. Cervical cancer screening: screening not indicated. Osteoporosis screening: screening is current. Colorectal cancer screening: screening is current. HIV screening: screening not indicated. 'Scores and Scales' Med (more content not included)... [facility] Follow-up visit Diagnoses/Problems Encounter for preventive health examination (V70.0) (Z00.00) History of Mallet finger, acquired (736.1) (M20.019) Osteoporosis (733.00) (M81.0) Hyperlipidemia (272.4) (E78.5) Elevated glucose (790.29) (R73.09) Severe obstructive sleep apnea (327.23) (G47.33) Orders 10 year risk of MT or stroke 7.5% or greater, Hyperlipidemia Renew: Atorvastatin Calcium 20 MG Oral Tablet; TAKE 1 TABLET DAILY Elevated glucose, Health Maintenance, Hyperlipidemia, Osteoporosis Complete Blood Count + Differential; Status:Active; Requested for:[id number]; Comprehensive Metabolic Panel; Status:Active; Requested for:[id number]; Hemoglobin A1C; Status:Active; Requested for:[id number]; Lipid Panel; Status:Active; Requested for:[id number]; TSH WITH REFLEX TO FREE T4 IF ABNORMAL; Status:Active; Requested for:[id number]; Vitamin B12, Serum; Status:Active; Requested for:[id number]; Vitamin D 25-Hydroxy; Status:Active; Requested for:[id number]; Patient Discussion/Summary Continue current care, fup 12 mos, labs prior, call concerns. Chief Complaint Chief Complaint: UZMA DURAN is here with a chief complaint of HERE FOR MED CHECK; F/U LABS; STATES WILL BE HAVING A UTERINE PROLAPSE REPAIR DONE APRIL 2022. History of Present Illness Uzma presents for periodic surveillance of chronic medical problems. Mallet finger, saw ortho, conservative treatment advised. Osteoporosis, bone density current, has declined treatment, gets regular weight bearing exercise and adequate calcium and vitamin D intake Severe sleep apnea, did not tolerate cpap has been using a dental appliance states has a snoring ivon and doesn't think she has been sleeping as well/snoring more, has appt with her dentist this month and is going to see a sleep specailist at the this winter, reviewed risks of untreated sleep apnea manager estate prolapse, surgery this spring planned Elevated glucose, improved Hyperlipidemia stable on medication Had mild case of covid this summer. Review of Systems Constitutional: as noted in HPI. Cardiovascular: no chest pain. Respiratory: no shortness of breath during exertion. Musculoskeletal: as noted in HPI and no history of falls. Psychiatric: no depression. Endocrine: as noted in HPI. Active Problems 10 year risk of MT or stroke 7.5% or greater (V49.89) (Z91.89) Elevated glucose (790.29) (R73.09) Encounter for annual wellness exam in Medicare patient (V70.0) (Z00.00) Hyperlipidemia (272.4) (E78.5) Menopause (627.2) (Z78.0) Multiple thyroid nodules (241.1) (E04.2) Osteoporosis (733.00) (M81.0) Screening for breast cancer (V76.10) (Z12.39) Severe obstructive sleep apnea (327.23) (G47.33) Tubular adenoma of colon (211.3) (D12.6) Past Medical History 10 year risk of MT or stroke 7.5% or greater (V49.89) (Z91.89) Elevated glucose (790.29) (R73.09) Hyperlipidemia (272.4) (E78.5) Severe obstructive sleep apnea (327.23) (G47.33) Surgical History History of Colonoscopy Managed By: Bhaskar Davies (Internal Medicine) History of Hysterectomy Family History Family history of asthma (V17.5) (Z82.5) Family history of diabetes mellitus (V18.0) (Z83.3) Family history of osteoporosis (V17.81) (Z82.62) Family history of Primary malignant neoplasm of lung Family history of cardiac disorder (V17.49) (Z82.49) Family history of hypertension (V17.49) (Z82.49) Family history of Primary malignant neoplasm of prostate Family history of Psychological disorder Social History Former smoker (V15.82) (Z87.891) No caffeine use No illicit drug use Occasional alcohol use Patient has active durable power of consumer attorney (DPOA) designee for healthcare Patient has living will (V49.89) (Z78.9) Allergies Penicillins Rash; Recorded By: Marilee Ramon; 02/14/2019 7:57:52 AM Current Meds Medication NameInstructionReason Atorvastatin Calcium 20 MG Oral TabletTAKE 1 TABLET DAILY.10 year risk of MT or stroke 7.5% or greater, Hyperlipidemia Fish Oil OIL1,000mg. 1 capsule twice dailyHealth Maintenance Multi Vitamin TABSHealth Maintenance Probiotic CAPSHealth Maintenance Vitamin B 12 TABSHealth Maintenance Unspecified HomeopathicELDEBERRY SYRUP Viactiv CHEW Zinc 25 MG TABS Vitals Vital Signs Recorded: [id number] 11:08AM Heart Rate64 Wiqildos775, LUE, Sitting Ecqcjxnbb70, LUE, Sitting Height5 ft Jgsxpe037 lb 3 oz BMI Wrufgiyazb38.18 kg/m2 BSA Calculated1.6 Tobacco Useb) No Falls Screening (Age 18+)b) One or more falls in the last year Physical Exam Constitutional: Alert and in no acute distress. Well developed, well nourished. Head and Face: Head and face: Normal. Cardiovascular: Heart rate and rhythm were normal, normal S1 and S2, no gallops, no murmurs and no pericardial rub. Pulmonary: No respiratory distress. Clear bilateral breath sounds. Musculoskeletal: Gait and station: Normal. Neurologic: Cranial nerves 2-12 grossly intact. Psychiatric: Judgment and insight: Inta (more content not included)... Normal [facility] Tobacco Screening.on 022 Fall risk assessment b) One or more fall s in the last year [employer] Phone: Tobacco use status [facility] b) No [employer] Phone: Complete Blood Count + Diffe rentialon 02-02-2022 Basophils/100 WBC (Bld) 0.4 % 0.0 - 2.0 [employer] Work Phone: Erythrocyte distribution width (RBC) [Ratio] 12.4 % See Below [facility] Phone: Comment on above: Reference Range: 11. 5 - 14.5 Hematocrit (Bld) [Volume fraction] 41.3 % See Below [facility] Phone: Comment on above: Reference Range: 36. 0 - 46.0 Hemoglobin (Bld) [Mass/Vol] 13.2 g/dL See Below [facility] Work Phone: Comment on above: Reference Range: 12. 0 - 16.0 Lymphocytes/100 WBC (Bld) 25.1 % See Below [facility] [employer] Phone: Comment on above: Reference Range: 13. 0 - 44.0 MCHC (RBC) [Mass/Vol] 32.0 g/dL See Below [facility] [employer] Phone: Comment on above: Reference Range: 32. 0 - 36.0 MCV (RBC) [Entitic vol] 99 fL 80 - 100 [facility] Phone: Monocytes/100 WBC (Bld) 7.9 % 2.0 - 10.0 [facility] [employer] Phone: Neutrophils/100 WBC (Bld) 65.2 % See Below [facility] [employer] Phone: Comment on above: Reference Range: 40. 0 - 80.0 Platelets (Bld) [#/Vol] 243 10*3/uL 150 - 450 [facility] Phone: RBC (Bld) [#/Vol] 4.16 {x10E12/L} See Below [facility] Phone: Comment on above: Reference Range: 4.0 0 - 5.20 WBC (Bld) [#/Vol] 6.7 10*3/uL 4.4 - 11.3 [facility] Work Phone: Complete Blood Count + Differential 0.03 {x10E9/L} See Below [facility] [employer] Phone: Comment on above: Reference Range: 0.0 0 - 0.10 Complete Blood Count + Differential 0.09 {x10E9/L} See Below [facility] [employer] Phone: Comment on above: Reference Range: 0.0 0 - 0.40 Complete Blood Count + Differential 0.53 {x10E9/L} See Below [facility] [employer] Phone: Comment on above: Reference Range: 0.0 5 - 0.80 Complete Blood Count + Differential 1.68 {x10E9/L} See Below [facility] [employer] Phone: Comment on above: Reference Range: 0.8 0 - 3.00 Complete Blood Count + Differential 4.36 {x10E9/L} See Below [facility] [employer] Phone: Comment on above: Reference Range: 1.6 0 - 5.50 Percent differential counts (%) should be interpreted in the context of the absolute cell counts (cells/L). Complete Blood Count + Differential 1.3 % 0.0 - 6.0 [facility] [employer] Phone: Complete Blood Count + Differential 0.1 % 0.0 - 0.9 [facility] [employer] Phone: Comment on above: Immature Granulocyte Count (IG) includes promyelocytes, myelocytes and metamyelocytes but does not include bands. Percent differential counts (%) should be interpreted in the context of the absolute cell counts (cells/L). Hemoglobin A1Con 02-02-2022 Glucose [Mass/Vol] 105 mg/dL [facility] [employer] Phone: HbA1c (Bld) [Mass fraction] 5.3 % [facility] [employer] Phone: Comment on above: Diagnosis of Diabete s-Adults Non-Diabetic: < or = 5.6% Increased risk for developing diabetes: 5.7-6.4% Diagnostic of diabetes: > or = 6.5%. Monitoring of Diabetes Age (y) Therapeutic Goal (%) Adults: >18 <7.0 Pediatrics: 13-18 <7.5 7-12 <8.0 0- 6 7.5-8.5 [employer]. Diabetes Care 33(S1), Feb 2009. Laboratory - Chemistry and C hemistry - challengeon 02-02-2022 Albumin BCP dye [Mass/Vol] 4.1 g/dL 3.4 - 5.0 [facility] Work Phone: ALP [Catalytic activity/Vol] 70 U/L 33 - 136 [facility] [employer] Phone: ALT With P-5'-P [Catalytic activity/Vol] 21 U/L 7 - 45 [facility] [employer] Work Phone: Comment on above: Patients treated wit h Sulfasalazine may generate falsely decreased results for ALT. Anion gap [Moles/Vol] 12 mmol/L 10 - 20 [facility] Phone: AST With P-5'-P [Catalytic activity/Vol] 21 U/L 9 - 39 [facility] Work Phone: Bilirubin [Mass/Vol] 0.6 mg/dL 0.0 - 1.2 [facility] [employer] Work Phone: Calcium [Mass/Vol] 9.2 mg/dL 8.6 - 10.3 [facility] Work Phone: Chloride [Moles/Vol] 106 mmol/L 98 - 107 [facility] [employer] Phone: CO2 [Moles/Vol] 26 mmol/L 21 - 32 [facility] Work Phone: Creatinine [Mass/Vol] 0.77 mg/dL See Below [facility] Phone: Comment on above: Reference Range: 0.5 0 - 1.05 Glucose [Mass/Vol] 83 mg/dL 74 - 99 [facility] [employer] Work Phone: Potassium [Moles/Vol] 3.9 mmol/L 3.5 - 5.3 [facility] [employer] Phone: Protein [Mass/Vol] 6.9 g/dL 6.4 - 8.2 [facility] Work Phone: Sodium [Moles/Vol] 140 mmol/L 136 - 145 [facility] [employer] Phone: TSH Qn 1.09 m[IU]/L See Below [facility] [employer] Phone: Comment on above: Reference Range: 0.4 4 - 3.98 TSH testing is performed using different testing methodology at [facility] than at [facility]. Direct result comparisons should only be made within the same method. Urea nitrogen [Mass/Vol] 18 mg/dL 6 - 23 [facility] [employer] Phone: Lipid Panelon 02-02-2022 Cholesterol [Mass/Vol] 165 mg/dL 0 - 199 [facility] [employer] Phone: Comment on above: . AGE DESIRABLE BORD OLIVIA HIGH HIGH 0-19 Y 0 - 169 170 - 199 >/= 200 20-24 Y 0 - 189 190 - 224 >/= 225 >24 Y 0 - 199 200 - 239 >/= 240 All ranges are based on fasting samples. Specific therapeutic targets will vary based on patient-specific cardiac risk.. Pediatric guidelines reference:Pediatrics 2011, 128(S5). Adult guidelines reference: NCEP ATPIII Guidelines, DYLAN 2001, 258:2486-97. Venipuncture immediately after or during the administration of Metamizole may lead to falsely low results. Testing should be performed immediately prior to Metamizole dosing. Cholesterol in HDL [Mass/Vol] 73.0 mg/dL [employer] [facility] Phone: Comment on above: . AGE VERY LOW LOW N ORMAL HIGH 0-19 Y < 35 < 40 40-45 ---- 20-24 Y ---- < 40 >45 ---- >24 Y ---- < 40 40-60 >60. Cholesterol in LDL [Mass/Vol] 79 mg/dL 0 - 99 [employer] [facility] Phone: Comment on above: . NEAR BORD AGE TALI RABLE OPTIMAL HIGH HIGH VERY HIGH 0-19 Y 0 - 109 --- 110-129 >/= 130 ---- 20-24 Y 0 - 119 --- 120-159 >/= 160 ---- >24 Y 0 - 99 100-129 130-159 160-189 >/=190. Cholesterol.total/Chol esterol in HDL [Mass ratio] 2.3 {ratio} [employer] [facility] Phone: Comment on above: REF VALUESDESIRABLE < 3.4HIGH RISK > 5.0 Triglyceride [Mass/Vol] 67 mg/dL 0 - 149 [employer] [facility] [employer] Phone: Comment on above: . AGE DESIRABLE BORD OLIVIA HIGH HIGH VERY HIGH 0 D-90 D 19 - 174 ---- ---- ----91 D- 9 Y 0 - 74 75 - 99 >/= 100 ---- 10-19 Y 0 - 89 90 - 129 >/= 130 ---- 20-24 Y 0 - 114 115 - 149 >/= 150 ---- >24 Y 0 - 149 150 - 199 200- 499 >/= 500. Venipuncture immediately after or during the administration of Metamizole may lead to falsely low results. Testing should be performed immediately prior to Metamizole dosing. Lipid Panel 13 mg/dL 0 - 40 [facility] Phone: No Panel Informationon 02-02 80 {mL/min/1.73m2} >90 [facility] [employer] [facility] Phone: Comment on above: CALCULATIONS OF ERNESTO MATED GFR ARE PERFORMED USING THE 2020 CKD-EPI STUDY REFIT EQUATION WITHOUT THE RACE VARIABLE FOR THE IDMS-TRACEABLE CREATININE METHODS.https://jasn.asnjournals.org/content//A SN.9727742610 Vitamin D 25-Hydroxyon 02-02 25-hydroxyvitamin D3 [Mass/Vol] 53 ng/mL [facility] Phone: Comment on above: .DEFICIENCY: < 20 NG /MLINSUFFICIENCY: 20-29 NG/MLSUFFICIENCY: 30-100 NG/MLTHIS ASSAY ACCURATELY QUANTIFIES THE SUM OFVITAMIN D3, 25-HYDROXY AND VIT D2,25-HYDROXY. Office Visit (Primary Care F ormt)on 06-02-2021 Follow-up visit Diagnosis/Problems Assessed Mallet finger, acquired (736.1) (M20.019) Orders Mallet finger, acquired Xray Hand Min 3 View; Status:Active; Requested for:02Jun2021; Perform:[facility]; Due:[id number];Ordered; For:Mallet finger, acquired; Ordered By:Cyndi Horn; Laterality : Right Radiologist to Determine Optimal Study : Y What are the patient's signs and symptoms? : mallet finger ,since February Orthopedic - General Referral Evaluation and Treatment Evaluate AND Treat Status: Hold For - Scheduling Requested for: [id number] Ordered;For: Mallet finger, acquired; Ordered By: Cyndi Horn Performed: Due: [id number] Patient Discussion/Summary Discussed extensor tendon injuries briefly, I don't know if its too late to fix, will get ortho involved and seek their opinion, get imaging for that. As per hpi. Chief Complaint follow up to bone density scan History of Present IllnessDoris is here today to review her bone density results. Reviewed with her findings of osteoporosis and fracture risk. Discussed risks of no treatment and natural progression of the disease with age. Discussed current treatment options, benefits, risks and side effects. For now she opts to choose not treatment, will continue calcium with D supplement twice daily and regular weight bearing exercise. She has been to Dr Davenport for thyroid nodules and plan is observation at this point. She notes end of February, she caught her finger on rug cleaning up a spilled plant, and her right middle finger has been bent distally since then . She was getting ready to leave to [place], states a friend told her all the doctor is going to do is have you wear a splint ,so she got a splint and has been wearing it at night only and hasn't had any improvement, still can' t straighten that distal joint of dominant right hand middle finger. 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) Past Medical History Problems 10 year risk of MT or stroke 7.5% or greater (V49.89) (Z91.89) Elevated glucose (790.29) (R73.09) Hyperlipidemia (272.4) (E78.5) Severe obstructive sleep apnea (327.23) (G47.33) Surgical History Problems History of Colonoscopy History of Hysterectomy Family History Mother Family history of asthma (V17.5) (Z82.5) Family history of diabetes mellitus (V18.0) (Z83.3) Family history of osteoporosis (V17.81) (Z82.62) Family history of Primary malignant neoplasm of lung Father Family history of cardiac disorder (V17.49) (Z82.49) Family history of hypertension (V17.49) (Z82.49) Family history of Primary malignant neoplasm of prostate Family history of Psychological disorder Social History Problems Former smoker (V15.82) (Z87.891) No caffeine use No illicit drug use Occasional alcohol use Patient has active durable power of consumer attorney (DPOA) designee for healthcare Patient has living will (V49.89) (Z78.9) Current Meds Medication NameInstruction Atorvastatin Calcium 20 MG Oral TabletTAKE 1 TABLET DAILY. Fish Oil OIL1,000mg. 1 capsule twice daily Multi Vitamin TABS Probiotic CAPS Unspecified HomeopathicELDEBERRY SYRUP Vitamin B 12 TABS Vitamin D3 CAPS Zinc 25 MG Oral Tablet Allergies Medication Penicillins Rash; Recorded By: Marilee Ramon; 02/14/2019 7:57:52 AM Vitals Vital Signs Recorded: 02Jun2021 10:27AM Heart Rate76 Dzuirpmh603 Nfqhldrla00 Height5 ft Ejekjr982 lb 8 oz BMI Sxbkixhguy78.24 kg/m2 BSA Calculated1.6 Tobacco Useb) No Fall Screeninga) No falls within the last year Physical Exam Constitutional - Well developed, well nourished, well hydrated and no acute distress. Vital signs reviewed. Head and Face - Normocephalic, atraumatic. Pulmonary - normal respiratory effort. Musculoskeletal - DIP flexed right middle finger. Signatures Electronically signed by : Cyndi Horn MD; Jun 02 2021 12:42PM EST (Author) Normal [facility] Radiologyon 06-02-2021 XR Hand 3 Views Please click on the link to view the study images Normal [facility] 205 DO Work Phone: XR Hand 3 Views Normal [facility] Work Phone: Tobacco Screening.on 022 Fall risk assessment a) No falls within the last year [facility] 205 DO Work Phone: Tobacco use status CP b) No [facility] 205 DO Work Phone: Xray Bone Density, Dexa 1 or More Siteson 05-25-2021 DXA Bone [Mass/Area] Bone density Normal [facility] 205 DO Work Phone: Mamm - Screening Mammogram w / Tomosynthesison 05-20-2021 MG Breast Screening Normal [facility] Phone: Radiologyon 05-14-2021 US Thyroid gland Normal [facility] [employer] Phone: Tobacco Screening.on 021 Fall risk assessment a) No falls within the last year [facility] [employer] Phone: Tobacco use status [facility] b) No [facility] [employer] Phone: Complete Blood Count + Diffe rentialon 02-02-2021 Basophils/100 WBC (Bld) 0.5 % 0.0 - 2.0 [facility] [employer] Phone: Erythrocyte distribution width (RBC) [Ratio] 13.1 % See Below [facility] [employer] Phone: Comment on above: Reference Range: 11. 5 - 14.5 Hematocrit (Bld) [Volume fraction] 40.7 % See Below [facility] [employer] Phone: Comment on above: Reference Range: 36. 0 - 46.0 Hemoglobin (Bld) [Mass/Vol] 13.6 g/dL See Below [facility] [employer] Phone: Comment on above: Reference Range: 12. 0 - 16.0 Lymphocytes/100 WBC (Bld) 26.0 % See Below [facility] [employer] Phone: Comment on above: Reference Range: 13. 0 - 44.0 MCHC (RBC) [Mass/Vol] 33.5 g/dL See Below [facility] [employer] Phone: Comment on above: Reference Range: 32. 0 - 36.0 MCV (RBC) [Entitic vol] 96 fL 80 - 100 [facility] [employer] Phone: Monocytes/100 WBC (Bld) 6.8 % 2.0 - 10.0 [facility] Phone: Neutrophils/100 WBC (Bld) 65.4 % See Below [facility] [employer] Phone: Comment on above: Reference Range: 40. 0 - 80.0 Platelets (Bld) [#/Vol] 270 10*3/uL 150 - 450 [facility] [employer] Phone: RBC (Bld) [#/Vol] 4.26 {x10E12/L} See Below [facility] [employer] Phone: Comment on above: Reference Range: 4.0 0 - 5.20 WBC (Bld) [#/Vol] 6.2 10*3/uL 4.4 - 11.3 [facility] [employer] Phone: Complete Blood Count + Differential 0.00 {x10E9/L} See Below [facility] [employer] Phone: Comment on above: Reference Range: 0.0 0 - 0.10 Complete Blood Count + Differential 0.10 {x10E9/L} See Below [facility] [employer] Phone: Comment on above: Reference Range: 0.0 0 - 0.40 Complete Blood Count + Differential 0.40 {x10E9/L} See Below [facility] [employer] Phone: Comment on above: Reference Range: 0.0 5 - 0.80 Complete Blood Count + Differential 1.60 {x10E9/L} See Below [facility] [employer] Phone: Comment on above: Reference Range: 0.8 0 - 3.00 Complete Blood Count + Differential 4.10 {x10E9/L} See Below [facility] [employer] Phone: Comment on above: Reference Range: 1.6 0 - 5.50 Percent differential counts (%) should be interpreted in the context of the absolute cell counts (cells/L). Complete Blood Count + Differential 1.3 % 0.0 - 6.0 [facility] Work Phone: Hemoglobin A1Con 02-02-2021 Glucose [Mass/Vol] 103 mg/dL [facility] Work Phone: HbA1c (Bld) [Mass fraction] 5.2 % [facility] [employer] Phone: Comment on above: Diagnosis of Diabete s-Adults Non-Diabetic: < or = 5.6% Increased risk for developing diabetes: 5.7-6.4% Diagnostic of diabetes: > or = 6.5%. Monitoring of Diabetes Age (y) Therapeutic Goal (%) Adults: >18 <7.0 Pediatrics: 13-18 <7.5 7-12 <8.0 0- 6 7.5-8.5 [employer]. Diabetes Care 33(S1), Feb 2009. Laboratory - Chemistry and C hemistry - challengeon 02-02-2021 Albumin BCP dye [Mass/Vol] 4.0 g/dL 3.4 - 5.0 [facility] Work Phone: ALP [Catalytic activity/Vol] 66 U/L 33 - 136 [facility] [employer] Phone: ALT With P-5'-P [Catalytic activity/Vol] 17 U/L 7 - 45 [facility] [employer] Phone: Comment on above: Patients treated wit h Sulfasalazine may generate falsely decreased results for ALT. Anion gap [Moles/Vol] 9 mmol/L below low threshold 10 - 20 [facility] [employer] Work Phone: AST With P-5'-P [Catalytic activity/Vol] 19 U/L 9 - 39 [facility] [employer] Phone: Bilirubin [Mass/Vol] 0.6 mg/dL 0.0 - 1.2 [facility] [employer] Work Phone: Calcium [Mass/Vol] 9.2 mg/dL 8.6 - 10.3 [facility] [employer] Work Phone: Chloride [Moles/Vol] 104 mmol/L 98 - 107 [facility] [employer] Work Phone: CO2 [Moles/Vol] 30 mmol/L 21 - 32 [facility] [employer] Work Phone: Creatinine [Mass/Vol] 0.79 mg/dL See Below [facility] [employer] Work Phone: Comment on above: Reference Range: 0.5 0 - 1.05 Glucose [Mass/Vol] 91 mg/dL 74 - 99 [facility] [employer] Work Phone: Potassium [Moles/Vol] 4.1 mmol/L 3.5 - 5.3 [facility] [employer] Work Phone: Protein [Mass/Vol] 7.0 g/dL 6.4 - 8.2 [facility] [employer] Work Phone: Sodium [Moles/Vol] 139 mmol/L 136 - 145 [facility] [employer] Work Phone: TSH Qn 1.33 m[IU]/L See Below [facility] [employer] Work Phone: Comment on above: Reference Range: 0.4 4 - 3.98 TSH testing is performed using different testing methodology at [facility] than at [facility]. Direct result comparisons should only be made within the same method. Urea nitrogen [Mass/Vol] 22 mg/dL 6 - 23 [facility] [employer] Work Phone: Lipid Panelon 02-02-2021 Cholesterol [Mass/Vol] 177 mg/dL 0 - 199 [facility] [employer] Work Phone: Comment on above: . AGE DESIRABLE BORD OLIVIA HIGH HIGH 0-19 Y 0 - 169 170 - 199 >/= 200 20-24 Y 0 - 189 190 - 224 >/= 225 >24 Y 0 - 199 200 - 239 >/= 240 All ranges are based on fasting samples. Specific therapeutic targets will vary based on patient-specific cardiac risk.. Pediatric guidelines reference:Pediatrics 2011, 128(S5). Adult guidelines reference: NCEP ATPIII Guidelines, DYLAN 2001, 258:2486-97. Venipuncture immediately after or during the administration of Metamizole may lead to falsely low results. Testing should be performed immediately prior to Metamizole dosing. Cholesterol in HDL [Mass/Vol] 72.0 mg/dL [employer] Phone: Comment on above: . AGE VERY LOW LOW N ORMAL HIGH 0-19 Y < 35 < 40 40-45 ---- 20-24 Y ---- < 40 >45 ---- >24 Y ---- < 40 40-60 >60. Cholesterol in LDL [Mass/Vol] 88 mg/dL 0 - 99 [employer] Phone: Comment on above: . NEAR BORD AGE TLAI RABLE OPTIMAL HIGH HIGH VERY HIGH 0-19 Y 0 - 109 --- 110-129 >/= 130 ---- 20-24 Y 0 - 119 --- 120-159 >/= 160 ---- >24 Y 0 - 99 100-129 130-159 160-189 >/=190. Cholesterol.total/Chol esterol in HDL [Mass ratio] 2.5 {ratio} [employer] Phone: Comment on above: REF VALUESDESIRABLE < 3.4HIGH RISK > 5.0 Triglyceride [Mass/Vol] 87 mg/dL 0 - 149 [employer] Phone: Comment on above: . AGE DESIRABLE BORD OLIVIA HIGH HIGH VERY HIGH 0 D-90 D 19 - 174 ---- ---- ----91 D- 9 Y 0 - 74 75 - 99 >/= 100 ---- 10-19 Y 0 - 89 90 - 129 >/= 130 ---- 20-24 Y 0 - 114 115 - 149 >/= 150 ---- >24 Y 0 - 149 150 - 199 200- 499 >/= 500. Venipuncture immediately after or during the administration of Metamizole may lead to falsely low results. Testing should be performed immediately prior to Metamizole dosing. Lipid Panel 17 mg/dL 0 - 40 [employer] [employer] Work Phone: No Panel Informationon 02-02 >60 >60 [facility] Phone: Comment on above: CALCULATIONS OF ERNESTO MATED GFR ARE PERFORMED USING THE MDRD STUDY EQUATION FOR THE IDMS-TRACEABLE CREATININE METHODS. CLIN CHEM 2007;53:766-72 Vitamin D 25-Hydroxyon 02-02 25-hydroxyvitamin D3 [Mass/Vol] 92 ng/mL [employer] Phone: Comment on above: .DEFICIENCY: < 20 NG /MLINSUFFICIENCY: 20-29 NG/MLSUFFICIENCY: 30-100 NG/MLTHIS ASSAY ACCURATELY QUANTIFIES THE SUM OFVITAMIN D3, 25-HYDROXY AND VIT D2,25-HYDROXY. [place] Mamm Screen w/CAD if perf and 3D Bilon 03-09-2018 Bilirubin.direct mass conc Exam Date/Time:03/09/2018 13:51 ESTReason for Exam:SCREENING 3D;ScreeningReportSTUDY: Digital mammography screening with latisha; 03/09/2018 1:51 pmACCESSION NUMBER(S):[id number] CLINICIAN:Cyndi HornINDICATION:Amanda harrisCOMPARISON:Comparison is made to prior digital mammograms dated03/08/2017 and 03/02/2016FINDINGS:CC and MLO 2D digital mammograms and digital breast tomosynthesis images were obtained of the bilateral breasts. 3-D volume images were reconstructed in 4 views at an independent workstation as 1 mm slices through the breasts in both the CC and MLO projections.There are areas of scattered fibroglandular tissue. No discrete mass or focal asymmetry is identified. No suspicious microcalcifications or foci of architectural distortion are seen. There has been no significant change.This study was interpreted with CAD.IMPRESSION:No mammographic evidence of malignancy.BI-RADS CATEGORY:Category: 1 - Negative.Recommendation: Normal Interval Follow-up, Over Age 40.Recall Interval: 12 Months.Breast Density: Scattered Fibroglandular Density. FINAL REPORT Dictated: 03/09/2018 3:06 pm Chris Piper MD CSigned (Electronic Signature): 03/09/2018 3:06 pmSigned by: Chris Piper MD Technologist: HERMESssessment: BI-RADS Category 1-NegativeRecommendation : Normal interval follow-up Normal [facility] US Thyroidon 03-06-2018 US Thyroid Exam Date/Time: 019 09:50 ESTReason for Exam:THYROID NODULE ELVATED GLUSOE HYPERLIPIDEMIA;Other (please specify)ReportSTUDY:US Thyroid; 03/05/2018 9:50 amINDICATION:Other (please specify).COMPARISON:Most recent prior thyroid ultrasound 03/02/2016ACCESSION NUMBER(S):[id number] CLINICIAN:Cyndi HornTECHNIMARTIN:Grayscale and color Doppler ultrasound of the thyroid.FINDINGS:RIGHT LOBE:Measured at 4.9 x 1.5 x 1.8 cm in the longitudinal, AP, and transverse dimensions. The parenchyma is heterogeneous, with several nodules. A midpole hypoechoic nodule posteriorly measures 0.9 x 0.7 x 0.8 cm, previously up to 0.8 cm. A lower pole spongiform nodule laterally measures 1.1 x 0.7 x 0.9 cm. Also laterally, at the lower pole, a solid nodule with calcification measures 1.6 x 1.5 x 1.4 cm, previously up to 1.5 cm.LEFT LOBE:Measured at 4.8 x 1.3 x 1.7 cm in the longitudinal, AP, and transverse dimensions. The parenchyma is heterogeneous, with multiple subcentimeter nodules. A midpole hypoechoic nodule measures up to 0.7 cm, stable.ISTHMUS:Measured at 0.1 cm in AP dimension.IMPRESSION:No significant change in multinodular goiter since 03/02/2016. FINAL REPORT Dictated: 03/06/2018 9:38 am Elicia Vallejo MD (Electronic Signature): 03/06/2018 9:38 amSigned by: Vannesa Vallejo MD Technologist: BS Normal [facility] CMPon 03-05-2018 Albumin mass conc 4.2 g/dL Normal 3.4-5.0 [facility] Comment on above: Performed By: #### [id number] ####AVERY [id number] [place] [address] Albumin/Globulin mass ratio 1.6 {ratio} Normal 1.1-1.9 [facility] [facility] Comment on above: Performed By: #### 2 [id number] ####AVERY [id number] [place] [address] Alk Phos 76 Int._Unit/L Normal 33-136 [facility] Comment on above: Performed By: #### 2 [id number] ####AVERY [id number] [place] [address] ALT enzyme act/vol 33 Int._Unit/L Normal 7-45 [facility] Comment on above: Performed By: #### 2 [id number] ####AVERY NjwCpna3221 [place] [address] Anion gap 3 molar conc 10 mmol/L Normal 10-20 [facility] Comment on above: Performed By: #### 2 [id number] ####AVERY CarranzaEqbXlin2192 [place] [address] AST enzyme act/vol 27 Int._Unit/L Normal 9-39 [facility] Comment on above: Performed By: #### 2 [id number] ####AVERY [id number] [place] [address] Bili Total 0.47 mg/dL Normal 0.00-1.20 [facility] Comment on above: Performed By: #### 2 [id number] ####AVERY LukNfcm1198 [place] [address] Calcium mass conc 9.5 mg/dL Normal 8.6-10.3 [facility] Comment on above: Performed By: #### 2 [id number] ####AVERY CarranzaVyyMccy2055 [place] [address] Chloride molar conc 103 mmol/L Normal 98-107 [facility] Comment on above: Performed By: #### 2 [id number] ####AVERY [id number] [place] [address] CO2 molar conc 30.0 mmol/L Normal 21.0-32.0 [facility] Comment on above: Performed By: #### 2 [id number] ####AVERY OzcWsod7873 [place] [address] Creatinine mass conc 0.8 mg/dL Normal 0.5-1.1 [facility] Comment on above: Performed By: #### 2 [id number] ####AVERY VmkQnwz2357 [place] [address] Globulin Calculated mass conc (S) 3.0 g/dL Normal 2.0-4.0 [facility] Comment on above: Performed By: #### 2 [id number] ####AVERY [id number] [place] [address] Glucose mass conc 91 mg/dL Normal 70-99 [facility] Comment on above: Performed By: #### 2 [id number] ####AVERY [id number] [place] [address] Potassium molar conc 3.9 mmol/L Normal 3.5-5.3 [facility] Comment on above: Performed By: #### 2 [id number] ####AVERY MirRlmq4127 [place] [address] Protein mass conc 6.9 g/dL Normal 6.4-8.2 [facility] Comment on above: Performed By: #### 2 [id number] ####AVERY ZamTqca3237 [place] [address] Sodium molar conc 139 mmol/L Normal 136-145 [facility] Comment on above: Performed By: #### 2 [id number] ####AVERY JspWbke9049 [place] [address] Urea nitrogen mass conc 19 mg/dL Normal 6-23 [facility] Comment on above: Performed By: #### 2 [id number] ####AVERY WwzStbl5297 [place] [address] Urea nitrogen/Creatinine mass ratio 23.8 ratio Normal 5.4-30.0 [facility] Comment on above: Performed By: #### 2 [id number] ####AVERY PohGved1122 [place] [address] [id number] 03-05-2018 Hemoglobin A1c/Hemoglobin.total mass fraction (Bld) 5.4 % Normal 4.0-6.3 [facility] Comment on above: Performed By: #### 3 [id number] ####AVERY Chemistry Manual Jecqapmgxz1014 [place] [address] Lipid Profileon 03-05-2018 Cholesterol in HDL mass conc 66 mg/dL High 40-60 [facility] Comment on above: Performed By: #### 3 [id number] ####AVERY [id number] [place] [address] Cholesterol in LDL mass conc 92 mg/dL Normal 0-130 [facility] Comment on above: Performed By: #### 3 [id number] ####AVERY CarranzaQodJrnb9905 [place] [address] Cholesterol in VLDL mass conc 20 mg/dL Normal 0-40 [facility] Comment on above: Performed By: #### 3 [id number] ####AVERY [id number] [place] [address] Cholesterol mass conc 178 mg/dL Normal 0-199 [facility] Comment on above: Performed By: #### 3 [id number] ####AVERY VntKzdq8988 [place] [address] Triglyceride mass conc 102 mg/dL Normal 0-149 [facility] Comment on above: Result Comment: AGE DESIRABLE BORDERLINE HIGH91 D - 9 Y 0 - 74 75 - 99 > 19134 - 19 Y 0 - 89 90 - 129 > 130 20 - 24 Y 0 - 114 115 - 149 > 150> 25 0 - 149 150 - 199 200 - 499 Performed By: #### 3 [id number] ####AVERY [id number] [place] [address] TSHon 03-05-2018 Thyrotropin Qn 1.22 mcIU/mL Normal 0.30-5.60 [facility] Comment on above: Performed By: #### 2 [id number] ####AVERY Ecaoyczs6579 [place] [address] eGFRon 03-05-2018 eGFR AA >60 Normal [facility] Comment on above: Order Comment: Order added by Discern Expert. Performed By: #### 1 [id number] ####AVERY [id number] [place] [address] GFR/1.73 sq M predicted among non-blacks MDRD vol rate/area (S/P/Bld) mL/min/{1.73_m2} Normal [facility] Comment on above: Order Comment: Order added by Discern Expert. Performed By: #### 1 [id number] ####AVERY [id number] [place] [address] Vital Signs Date Time Vital Sign Value Performing Clinician Facility 12-30-2024 14:15-0500 Body height 149.2 cm Asya Cunha MD Work Phone: [facility] 12-30-2024 14:15-0500 Body mass index (BMI) [Ratio] 24.77 kg/m2 Asya Cunha MD Work Phone: [facility] 12-30-2024 14:15-0500 Body temperature 97 [degF] Asya Cunha MD Work Phone: [phone] [place] [address] 12-30-2024 14:15-0500 Body weight 55.16 kg Asya Cunha MD Work Phone: [facility] 12-30-2024 14:15-0500 Diastolic blood pressure 70 mm[Hg] Asya Cunha MD Work Phone: [facility] 12-30-2024 14:15-0500 Heart rate 99 /min Asya Cunha MD Work Phone: [facility] 12-30-2024 14:15-0500 Respiratory rate 18 /min Asya Cunha MD Work Phone: [facility] 12-30-2024 14:15-0500 SaO2% (BldA) [Mass fraction] 97 % Asya Cunha MD Work Phone: [facility] 12-30-2024 14:15-0500 Systolic blood pressure 102 mm[Hg] Asya Cunha MD Work Phone: [facility] 12-16-2024 11:45-0400 Diastolic blood pressure 71 mm[Hg] Naveedjon Gustafson ANALYSIS REPORTING DEVELOPER-[employer] Work Phone: [facility] 12-16-2024 11:45-0400 Heart rate 101 /min Naveed Gustafson ANALYSIS REPORTING DEVELOPER-[employer]ACH Work Phone: [facility] 12-16-2024 11:45-0400 Respiratory rate 18 /min Naveed Gustafson ANALYSIS REPORTING DEVELOPER-[employer]ACH Work Phone: [facility] 12-16-2024 11:45-0400 SaO2% (BldA) [Mass fraction] 98 % Naveed Gustafson ANALYSIS REPORTING DEVELOPER-[employer]ACH Work Phone: [facility] 12-16-2024 11:45-0400 Systolic blood pressure 103 mm[Hg] Naveedjon Gustafson ANALYSIS REPORTING DEVELOPER-[employer]ACH Work Phone: [facility] 12-16-2024 10:39-0400 Body height 149.9 cm Cyndi Horn MD Work Phone: [facility] 12-16-2024 10:39-0400 Body mass index (BMI) [Ratio] 23.83 kg/m2 Cyndi Horn MD Work Phone: [facility] 12-16-2024 10:39-0400 Body weight 53.52 kg Cyndi Horn MD Work Phone: [facility] 12-16-2024 10:39-0400 Diastolic blood pressure 78 mm[Hg] Cyndi Horn MD Work Phone: [facility] 12-16-2024 10:39-0400 Heart rate 92 /min Cyndi Horn MD Work Phone: [facility] 12-16-2024 10:39-0400 Systolic blood pressure 128 mm[Hg] Cyndi Horn MD Work Phone: [facility] 11-18-2024 14:56-0400 Diastolic blood pressure 68 mm[Hg] Naveedjon Gustafson ANALYSIS REPORTING DEVELOPER-[employer] Work Phone: [facility] 11-18-2024 14:56-0400 Heart rate 106 /min Naveed Hajiley ANALYSIS REPORTING DEVELOPER-[employer] Work Phone: [facility] 11-18-2024 14:56-0400 Respiratory rate 16 /min Naveed Gustafson ANALYSIS REPORTING DEVELOPER-[employer]ACH Work Phone: [facility] 11-18-2024 14:56-0400 Systolic blood pressure 100 mm[Hg] Naveed Hajiley ANALYSIS REPORTING DEVELOPER-[employer]ACH Work Phone: [facility] 11-18-2024 10:17-0400 Diastolic blood pressure 60 mm[Hg] Cyndi Horn MD Work Phone: [facility] 11-18-2024 10:17-0400 Heart rate 104 /min Cyndi Horn MD Work Phone: [facility] 11-18-2024 10:17-0400 SaO2% (BldA) [Mass fraction] 97 % Cyndi Horn MD Work Phone: [facility] 11-18-2024 10:17-0400 Systolic blood pressure 120 mm[Hg] Cyndi Horn MD Work Phone: [facility] 11-16-2024 11:07-0400 SaO2% (BldA) [Mass fraction] 94 % Abdullahi Alarcon MD Work Phone: [facility] 11-16-2024 07:50-0400 Body temperature 97.11 [degF] Abdullahi Alarcon MD Work Phone: [facility] 11-16-2024 07:50-0400 Diastolic blood pressure 81 mm[Hg] Abdullahi Alarcon MD Work Phone: [facility] 11-16-2024 07:50-0400 Heart rate 87 /min Abdullahi Alarcon MD Work Phone: [facility] 11-16-2024 07:50-0400 Respiratory rate 18 /min Abdullahi Alarcon MD Work Phone: [facility] 11-16-2024 07:50-0400 Systolic blood pressure 148 mm[Hg] Abdullahi Alarcon MD Work Phone: [facility] 11-14-2024 16:30-0400 Body height 149.9 cm Abdullahi Alarcon MD Work Phone: [facility] 11-14-2024 16:30-0400 Body mass index (BMI) [Ratio] 23.91 kg/m2 Abdullahi Alarcon MD Work Phone: [facility] 11-14-2024 16:30-0400 Body weight 53.7 kg Abdullahi Alarcon MD Work Phone: [facility] 11-08-2024 10:54-0400 Body height 149.9 cm Rachael Ram APRN-IRENE, DNP Work Phone: [facility] 11-08-2024 10:54-0400 Body mass index (BMI) [Ratio] 23.71 kg/m2 Rachael Ram APRN-IRENE, DNP Work Phone: [facility] 11-08-2024 10:54-0400 Body weight 53.25 kg Rachael Ram APRN-IRENE, DNP Work Phone: [facility] 11-08-2024 10:54-0400 Diastolic blood pressure 76 mm[Hg] Rachael Ram APRN-IRENE, DNP Work Phone: [facility] 11-08-2024 10:54-0400 Heart rate 82 /min Rachael Ram APRN-IRENE, DNP Work Phone: [facility] 11-08-2024 10:54-0400 Systolic blood pressure 128 mm[Hg] Rachael Ram APRN-IRENE, DNP Work Phone: [facility] 11-05-2024 10:02-0400 Body height 149.9 cm Cyndi Horn MD Work Phone: [facility] 11-05-2024 10:02-0400 Body mass index (BMI) [Ratio] 23.43 kg/m2 Cyndi Horn MD Work Phone: [facility] 11-05-2024 10:02-0400 Body weight 52.62 kg Cyndi Horn MD Work Phone: [facility] 11-05-2024 10:02-0400 Diastolic blood pressure 82 mm[Hg] Cyndi Horn MD Work Phone: [facility] 11-05-2024 10:02-0400 Heart rate 100 /min Cyndi Horn MD Work Phone: [facility] 11-05-2024 10:02-0400 Systolic blood pressure 146 mm[Hg] Cyndi Horn MD Work Phone: [facility] 11-02-2024 18:03-0400 Diastolic blood pressure 88 mm[Hg] Raleigh Martinezersen DO Work Phone: [facility] 11-02-2024 18:03-0400 Heart rate 90 /min Raleigh Stewart DO Work Phone: [facility] 11-02-2024 18:03-0400 Respiratory rate 16 /min Raleigh Stewart DO Work Phone: [facility] 11-02-2024 18:03-0400 SaO2% (BldA) [Mass fraction] 97 % Raleigh Stewart DO Work Phone: [facility] 11-02-2024 18:03-0400 Systolic blood pressure 158 mm[Hg] Raleigh Stewart DO Work Phone: [facility] 11-02-2024 14:39-0400 Body height 149.9 cm Raleigh Stewart DO Work Phone: [facility] 11-02-2024 14:39-0400 Body mass index (BMI) [Ratio] 23.83 kg/m2 Raleigh Stewart DO Work Phone: [facility] 11-02-2024 14:39-0400 Body temperature 98.91 [degF] Raleigh Martinezersen DO Work Phone: [facility] 11-02-2024 14:39-0400 Body weight 53.52 kg Raleigh Stewart DO Work Phone: [facility] 11-01-2024 11:30-0400 Body mass index (BMI) [Ratio] 23.05 kg/m2 Savanna Calderon MD Work Phone: [facility] 11-01-2024 11:30-0400 Body weight 53.52 kg Savanna Calderon MD Work Phone: [facility] 10-29-2024 10:02-0400 Body height 152.4 cm Cyndi Horn MD Work Phone: [facility] 10-29-2024 10:02-0400 Body mass index (BMI) [Ratio] 22.85 kg/m2 Cyndi Horn MD Work Phone: [facility] 10-29-2024 10:02-0400 Body weight 53.07 kg Cyndi Horn MD Work Phone: [facility] 10-29-2024 10:02-0400 Diastolic blood pressure 80 mm[Hg] Cyndi Horn MD Work Phone: [facility] 10-29-2024 10:02-0400 Heart rate 88 /min Cyndi Horn MD Work Phone: [facility] 10-29-2024 10:02-0400 Systolic blood pressure 128 mm[Hg] Cyndi Horn MD Work Phone: [facility] 10-17-2024 09:13-0400 Body height 152.4 cm Gerson Ram DO Work Phone: [facility] 10-17-2024 09:13-0400 Body mass index (BMI) [Ratio] 23.05 kg/m2 Gerson Ram DO Work Phone: [facility] 10-17-2024 09:13-0400 Body weight 53.52 kg Gerson Ram DO Work Phone: [facility] 10-17-2024 09:13-0400 Diastolic blood pressure 68 mm[Hg] Gerson Young DO Work Phone: [facility] 10-17-2024 09:13-0400 Heart rate 90 /min Gerson Young DO Work Phone: [facility] 10-17-2024 09:13-0400 Systolic blood pressure 118 mm[Hg] Gerson Young DO Work Phone: [facility] 10-15-2024 14:35-0400 Diastolic blood pressure 68 mm[Hg] [address] 10-15-2024 14:35-0400 Heart rate 92 /min [address] 10-15-2024 14:35-0400 Respiratory rate 16 /min [address] 10-15-2024 14:35-0400 SaO2% (BldA) [Mass fraction] 98 % [address] 10-15-2024 14:35-0400 Systolic blood pressure 124 mm[Hg] [address] 10-15-2024 14:17-0400 Body temperature 98.71 [degF] [address] 10-03-2024 09:12-0400 Diastolic blood pressure 80 mm[Hg] Gerson Young DO Work Phone: [facility] 10-03-2024 09:12-0400 Heart rate 68 /min Gerson Young DO Work Phone: [facility] 10-03-2024 09:12-0400 Systolic blood pressure 126 mm[Hg] Gerson Young DO Work Phone: [facility] 10-02-2024 14:39-0400 Diastolic blood pressure 84 mm[Hg] Tarik Horn DO Work Phone: [facility] 10-02-2024 14:39-0400 Heart rate 70 /min Tarik Horn DO Work Phone: [facility] 10-02-2024 14:39-0400 Respiratory rate 16 /min Tarik Horn DO Work Phone: [facility] 10-02-2024 14:39-0400 Systolic blood pressure 141 mm[Hg] Tarik Horn DO Work Phone: [facility] 10-01-2024 10:15-0400 Body height 152.4 cm Cyndi Horn MD Work Phone: [facility] 10-01-2024 10:15-0400 Diastolic blood pressure 74 mm[Hg] Cyndi Horn MD Work Phone: [facility] 10-01-2024 10:15-0400 Heart rate 76 /min Cyndi Horn MD Work Phone: [facility] 10-01-2024 10:15-0400 Systolic blood pressure 120 mm[Hg] Cyndi Horn MD Work Phone: [facility] 09-24-2024 10:00-0400 Heart rate 82 /min Clif Caceres DO Work Phone: [facility] 09-24-2024 10:00-0400 Respiratory rate 22 /min Clif Redmanaddis DO Work Phone: [facility] 09-24-2024 07:37-0400 Body temperature 96.8 [degF] Clif Redmanaddis DO Work Phone: [facility] 09-24-2024 07:37-0400 Diastolic blood pressure 79 mm[Hg] Clif Caceres DO Work Phone: [facility] 09-24-2024 07:37-0400 SaO2% (BldA) [Mass fraction] 100 % Clif Lemasters DO Work Phone: [facility] 09-24-2024 07:37-0400 Systolic blood pressure 150 mm[Hg] Clif Caceres DO Work Phone: [facility] 09-23-2024 08:00-0400 Body mass index (BMI) [Ratio] 24.76 kg/m2 Clif Caceres DO Work Phone: [facility] 09-23-2024 08:00-0400 Body weight 57.5 kg Clif Caceres DO Work Phone: [facility] 09-21-2024 20:37-0400 Body height 152.4 cm Clif Caceres DO Work Phone: [facility] 09-19-2024 13:05-0400 Body height 152.4 cm Cyndi Horn MD Work Phone: [facility] 09-19-2024 13:05-0400 Body mass index (BMI) [Ratio] 25.39 kg/m2 Cyndi Horn MD Work Phone: [facility] 09-19-2024 13:05-0400 Body weight 58.97 kg Cyndi Horn MD Work Phone: [facility] 09-19-2024 13:05-0400 Diastolic blood pressure 70 mm[Hg] Cyndi Horn MD Work Phone: [facility] 09-19-2024 13:05-0400 Heart rate 80 /min Cyndi Horn MD Work Phone: [facility] 09-19-2024 13:05-0400 Systolic blood pressure 126 mm[Hg] Cyndi Horn MD Work Phone: [facility] 09-10-2024 13:09-0400 Body height 152.4 cm Cyndi Horn MD Work Phone: [facility] 09-10-2024 13:09-0400 Body mass index (BMI) [Ratio] 25.19 kg/m2 Cyndi Horn MD Work Phone: [facility] 09-10-2024 13:09-0400 Body weight 58.51 kg Cyndi Horn MD Work Phone: [facility] 09-10-2024 13:09-0400 Diastolic blood pressure 84 mm[Hg] Cyndi Horn MD Work Phone: [facility] 09-10-2024 13:09-0400 Heart rate 88 /min Cyndi Horn MD Work Phone: [facility] 09-10-2024 13:09-0400 Systolic blood pressure 134 mm[Hg] Cyndi Horn MD Work Phone: [facility] 09-08-2024 17:57-0400 Diastolic blood pressure 95 mm[Hg] Jose Quispe [employer] Work Phone: [facility] Comment on above: osrt 09-08-2024 17:57-0400 Systolic blood pressure 174 mm[Hg] Jose Brittaney M[employer]'S GOL[employer]ACH Work Phone: [facility] Comment on above: osrt 09-08-2024 17:47-0400 Body mass index (BMI) [Ratio] 25.19 kg/m2 Jose Brittaney M[employer]'S GOL[employer]ACH Work Phone: [facility] 09-08-2024 17:47-0400 Body temperature 98.4 [degF] Jose Brittaney M[employer]'S GOL[employer]ACH Work Phone: [facility] 09-08-2024 17:47-0400 Body weight 58.51 kg Jose Pattersonber M[employer]'S G[employer]ACH Work Phone: [facility] 09-08-2024 17:47-0400 Heart rate 80 /min Jose Brittaney M[employer]'S G[employer] Work Phone: [facility] 09-08-2024 17:47-0400 Respiratory rate 16 /min Jose Pattersonber M[employer]'S GOL[employer]ACH Work Phone: [facility] 09-08-2024 17:47-0400 SaO2% (BldA) [Mass fraction] 96 % Jose Brittaney M[employer]'S GOL[employer]ACH Work Phone: [facility] 06-06-2024 10:19-0400 Body height 152.4 cm [facility] 06-06-2024 10:19-0400 Body mass index (BMI) [Ratio] 24.41 kg/m2 [facility] 06-06-2024 10:19-0400 Body weight 56.7 kg [facility] 02-09-2024 11:22-0500 Body height 152.4 cm Cyndi Horn MD Work Phone: [facility] 02-09-2024 11:22-0500 Body mass index (BMI) [Ratio] 24.41 kg/m2 Cyndi Horn MD Work Phone: [facility] 02-09-2024 11:22-0500 Body weight 56.7 kg Cyndi Horn MD Work Phone: [facility] 02-09-2024 11:22-0500 Diastolic blood pressure 78 mm[Hg] Cyndi Horn MD Work Phone: [facility] 02-09-2024 11:22-0500 Heart rate 76 /min Cyndi Horn MD Work Phone: [facility] 02-09-2024 11:22-0500 Systolic blood pressure 126 mm[Hg] Cyndi Horn MD Work Phone: [facility] 12-20-2023 08:24-0400 Body height 152.4 cm Virginia MBOLEY DNP Work Phone: [facility] 12-20-2023 08:24-0400 Body mass index (BMI) [Ratio] 24.08 kg/m2 Virginia MOBLEY DNP Work Phone: [facility] 12-20-2023 08:24-0400 Body weight 55.93 kg Virginia MOBLEY DNP Work Phone: [facility] 12-20-2023 08:24-0400 Diastolic blood pressure 70 mm[Hg] Virginia MOBLEY DNP Work Phone: [facility] 12-20-2023 08:24-0400 Heart rate 74 /min Virginia MOBLEY DNP Work Phone: [facility] 12-20-2023 08:24-0400 SaO2% (BldA) [Mass fraction] 98 % Virginia MOBLEY DNP Work Phone: [facility] 12-20-2023 08:24-0400 Systolic blood pressure 110 mm[Hg] Virginia MOBLEY DNP Work Phone: [facility] 12-07-2023 10:02-0400 Body height 152.4 cm Cyndi Horn MD Work Phone: [facility] 12-07-2023 10:02-0400 Body mass index (BMI) [Ratio] 24.22 kg/m2 Cyndi Horn MD Work Phone: [facility] 12-07-2023 10:02-0400 Body weight 56.25 kg Cyndi Horn MD Work Phone: [facility] 12-07-2023 10:02-0400 Diastolic blood pressure 78 mm[Hg] Cyndi Horn MD Work Phone: [facility] 12-07-2023 10:02-0400 Heart rate 76 /min Cyndi Horn MD Work Phone: [facility] 12-07-2023 10:02-0400 Systolic blood pressure 130 mm[Hg] Cyndi Horn MD Work Phone: [facility] 10-19-2023 11:38-0400 Diastolic blood pressure 80 mm[Hg] Cyndi Horn MD Work Phone: [facility] 10-19-2023 11:38-0400 Systolic blood pressure 128 mm[Hg] Cyndi Horn MD Work Phone: [facility] 10-19-2023 11:23-0400 Body height 152.4 cm Cyndi Horn MD Work Phone: [facility] 10-19-2023 11:23-0400 Body mass index (BMI) [Ratio] 24.8 kg/m2 Cyndi Horn MD Work Phone: [facility] 10-19-2023 11:23-0400 Body weight 57.61 kg Cyndi Horn MD Work Phone: [facility] 10-19-2023 11:23-0400 Heart rate 76 /min Cyndi Horn MD Work Phone: [facility] 08-03-2023 10:24-0400 Body height 152.4 cm Cyndi Horn MD Work Phone: [facility] 08-03-2023 10:24-0400 Body mass index (BMI) [Ratio] 26.95 kg/m2 Cyndi Horn MD Work Phone: [facility] 08-03-2023 10:24-0400 Body weight 62.6 kg Cyndi Horn MD Work Phone: [facility] 08-03-2023 10:24-0400 Diastolic blood pressure 72 mm[Hg] Cyndi Horn MD Work Phone: [facility] 08-03-2023 10:24-0400 Heart rate 76 /min Cyndi Horn MD Work Phone: [facility] 08-03-2023 10:24-0400 Systolic blood pressure 124 mm[Hg] Cyndi Horn MD Work Phone: [facility] 06-15-2023 11:42-0400 Body height 152.4 cm Cyndi Horn MD Work Phone: [facility] 06-15-2023 11:42-0400 Body mass index (BMI) [Ratio] 27.54 kg/m2 Cyndi Horn MD Work Phone: [facility] 06-15-2023 11:42-0400 Body weight 63.96 kg Cyndi Horn MD Work Phone: [facility] 06-15-2023 11:42-0400 Diastolic blood pressure 70 mm[Hg] Cyndi Horn MD Work Phone: [facility] 06-15-2023 11:42-0400 Heart rate 76 /min Cyndi Horn MD Work Phone: [facility] 06-15-2023 11:42-0400 Systolic blood pressure 118 mm[Hg] Cyndi Horn MD Work Phone: [facility] 05-31-2023 [id number] Body height 152.4 cm [facility] 05-31-2023 13:23-0400 Body mass index (BMI) [Ratio] 27.67 kg/m2 [facility] 05-31-2023 13:23-0400 Body weight 64.27 kg [facility] 02-10-2023 13:31-0500 Body height 152.4 cm Lorena Urbina MD Work Phone: [facility] [id number] Body weight 63.05 kg Lorena Urbina MD Work Phone: [facility] 02-10-2023 13:31-0500 Diastolic blood pressure 90 mm[Hg] Lorena Urbina MD Work Phone: [facility] 02-10-2023 13:31-0500 Systolic blood pressure 140 mm[Hg] Lorena Urbina MD Work Phone: [facility] 02-02-2023 11:12-0500 Body height 152.4 cm Cyndi Horn MD Work Phone: [facility] 02-02-2023 11:12-0500 Body mass index (BMI) [Ratio] 27.67 kg/m2 Cyndi Horn MD Work Phone: [facility] 02-02-2023 11:12-0500 Body weight 64.28 kg Cyndi Horn MD Work Phone: [facility] 02-02-2023 11:12-0500 Diastolic blood pressure 74 mm[Hg] Cyndi Horn MD Work Phone: [facility] 02-02-2023 11:12-0500 Heart rate 80 /min Cyndi Horn MD Work Phone: [facility] 02-02-2023 11:12-0500 Systolic blood pressure 120 mm[Hg] Cyndi Horn MD Work Phone: [facility] 01-03-2023 09:31-0500 Diastolic blood pressure 81 mm[Hg] Nguyen Arredondo [employer] Work Phone: [facility] Comment on above: r/c tea/rt 01-03-2023 09:31-0500 Systolic blood pressure 124 mm[Hg] Nguyen Arredondo [employer] Work Phone: [facility] Comment on above: r/c tea/rt 01-03-2023 09:27-0500 Body height 152.4 cm Nguyen Newis [employer] Work Phone: [facility] 01-03-2023 09:27-0500 Body mass index (BMI) [Ratio] 27.34 kg/m2 Nguyen Newis [employer] Work Phone: [facility] 01-03-2023 09:27-0500 Body temperature 98.1 [degF] Nguyen Newis [employer] Work Phone: [facility] 01-03-2023 09:27-0500 Body weight 63.5 kg Nguyen Newis [employer] Work Phone: [facility] 01-03-2023 09:27-0500 Heart rate 93 /min Nguyen Newis [employer] Work Phone: [facility] 01-03-2023 09:27-0500 Respiratory rate 14 /min Nguyen Newis [employer] Work Phone: [facility] 01-03-2023 09:27-0500 SaO2% (BldA) [Mass fraction] 95 % Nguyen Newis [employer] Work Phone: [facility] 11-08-2022 14:46-0400 Diastolic blood pressure 78 mm[Hg] Susan Frias MD Work Phone: [facility] 11-08-2022 14:46-0400 Systolic blood pressure 116 mm[Hg] Susan Frias MD Work Phone: [facility] 11-08-2022 12:24-0400 Body height 152.4 cm Pacc 4 Work Phone: [facility] 11-08-2022 12:24-0400 Body temperature 97.81 [degF] Pacc 4 Work Phone: [facility] 11-08-2022 12:24-0400 Body weight 63.05 kg Pacc 4 Work Phone: [facility] 11-08-2022 12:24-0400 Diastolic blood pressure 72 mm[Hg] Pac 4 Work Phone: [facility] 11-08-2022 12:24-0400 Heart rate 77 /min Pac 4 Work Phone: [facility] 11-08-2022 12:24-0400 SaO2% (BldA) [Mass fraction] 97 % Pac 4 Work Phone: [facility] 11-08-2022 12:24-0400 Systolic blood pressure 142 mm[Hg] Pac 4 Work Phone: [facility] 06-30-2022 09:06-0400 Body height 152.4 cm Cyndi Horn MD Work Phone: [facility] 06-30-2022 09:06-0400 Body mass index (BMI) [Ratio] 27.38 kg/m2 Cyndi Horn MD Work Phone: [facility] 06-30-2022 09:06-0400 Body weight 63.59 kg Cyndi Horn MD Work Phone: [facility] 06-30-2022 09:06-0400 Diastolic blood pressure 78 mm[Hg] Cyndi Horn MD Work Phone: [facility] 06-30-2022 09:06-0400 Heart rate 76 /min Cyndi Horn MD Work Phone: [facility] 06-30-2022 09:06-0400 Systolic blood pressure 130 mm[Hg] Cyndi Horn MD Work Phone: [facility] 06-01-2022 11:10-0400 Body height 152.4 cm Cyndi Horn MD Work Phone: [facility] 06-01-2022 11:10-0400 Body mass index (BMI) [Ratio] 27.52 kg/m2 Cyndi Horn MD Work Phone: [facility] 06-01-2022 11:10-0400 Body weight 63.91 kg Cyndi Horn MD Work Phone: [facility] 06-01-2022 11:10-0400 Diastolic blood pressure 78 mm[Hg] Cyndi Horn MD Work Phone: [facility] 06-01-2022 11:10-0400 Heart rate 76 /min Cyndi Horn MD Work Phone: [facility] 06-01-2022 11:10-0400 Systolic blood pressure 144 mm[Hg] Cyndi Horn MD Work Phone: [facility] 03-10-2022 10:50-0500 Body height 152.4 cm Cyndi Horn Work Phone: [facility] Work Phone: 03-10-2022 10:50-0500 Body mass index (BMI) [Ratio] 28.15 kg/m2 Cyndi Horn Work Phone: [facility] Work Phone: 03-10-2022 10:50-0500 Body surface area Derived from formula 1.62 m2 Cyndi Horn Work Phone: [facility] Work Phone: 03-10-2022 10:50-0500 Body weight 65.38 kg Cyndi Horn Work Phone: [facility] Work Phone: 03-10-2022 10:50-0500 Diastolic blood pressure 84 mm[Hg] yCndi Horn Work Phone: [facility] Work Phone: 03-10-2022 10:50-0500 Heart rate 88 /min Cyndi Horn Work Phone: [facility] Work Phone: 03-10-2022 10:50-0500 Systolic blood pressure 160 mm[Hg] Cyndi Horn Work Phone: [facility] Work Phone: 02-03-2022 12:36-0500 Diastolic blood pressure 68 mm[Hg] Cyndi Horn Work Phone: [facility] Work Phone: 02-03-2022 12:36-0500 Systolic blood pressure 128 mm[Hg] Cyndi Horn Work Phone: [facility] Work Phone: 02-03-2022 11:08-0500 Body height 152.4 cm Cyndi Horn Work Phone: [facility] Work Phone: 02-03-2022 11:08-0500 Body mass index (BMI) [Ratio] 27.18 kg/m2 Cyndi Horn Work Phone: [facility] Work Phone: 02-03-2022 11:08-0500 Body surface area Derived from formula 1.6 m2 Cyndi Horn Work Phone: [facility] Work Phone: 02-03-2022 11:08-0500 Body weight 63.14 kg Cyndi Horn Work Phone: [facility] Work Phone: 02-03-2022 11:08-0500 Diastolic blood pressure 80 mm[Hg] Cyndi Horn Work Phone: [facility] Work Phone: 02-03-2022 11:08-0500 Heart rate 64 /min Cyndi Horn Work Phone: [facility] Work Phone: 02-03-2022 11:08-0500 Systolic blood pressure 148 mm[Hg] Cyndi Horn Work Phone: [facility] Work Phone: 06-02-2021 10:27-0400 Body height 152.4 cm Cyndi Horn Work Phone: [facility] 205 DO Work Phone: 06-02-2021 10:27-0400 Body mass index (BMI) [Ratio] 27.24 kg/m2 Cyndi Horn Work Phone: [facility] 205 DO Work Phone: 06-02-2021 10:27-0400 Body surface area Derived from formula 1.6 m2 Cyndi Horn Work Phone: [facility] 205 DO Work Phone: 06-02-2021 10:27-0400 Body weight 63.28 kg Cyndi Horn Work Phone: [facility] 205 DO Work Phone: 06-02-2021 10:27-0400 Diastolic blood pressure 74 mm[Hg] Cyndi Horn Work Phone: [facility] 205 DO Work Phone: 06-02-2021 10:27-0400 Heart rate 76 /min Cyndi Horn Work Phone: [facility] 205 DO Work Phone: 06-02-2021 10:27-0400 Systolic blood pressure 120 mm[Hg] Cyndi Horn Work Phone: [facility] 205 DO Work Phone: 02-04-2021 09:07-0500 Body height 152.4 cm Cyndi Horn Work Phone: [facility] Work Phone: 02-04-2021 09:07-0500 Body mass index (BMI) [Ratio] 26.05 kg/m2 Cyndi Horn Work Phone: [facility] Work Phone: 02-04-2021 09:07-0500 Body surface area Derived from formula 1.57 m2 Cyndi Horn Work Phone: [facility] Work Phone: 02-04-2021 09:07-0500 Body temperature 97.1 [degF] Cyndi Horn Work Phone: [facility] Work Phone: 02-04-2021 09:07-0500 Body weight 60.5 kg Cyndi Horn Work Phone: [facility] Work Phone: 02-04-2021 09:07-0500 Diastolic blood pressure 70 mm[Hg] Cyndi Horn Work Phone: [facility] Work Phone: 02-04-2021 09:07-0500 Heart rate 76 /min Cyndi Horn Work Phone: [facility] Work Phone: 02-04-2021 09:07-0500 Systolic blood pressure 124 mm[Hg] Cyndi Horn Work Phone: [facility] Work Phone: Encounters Encounter Date Encounter Type Care Provider Facility Start: 12-31-2024 End: 12-31-2024 ambulatory CYNDI HORN [facility] Start: 12-30-2024 End: 12-30-2024 Office outpatient new 60 minutes Asya Cunha MD Work Phone: [facility] [place] Comment on above: 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) Start: 12-30-2024 End: 12-30-2024 ambulatory ASYA CUNHA [facility] Start: 12-26-2024 End: 12-26-2024 ambulatory [facility] Start: 12-24-2024 End: 12-24-2024 ambulatory [facility] Start: 12-20-2024 End: 12-20-2024 ambulatory [facility] Start: 12-18-2024 End: 12-18-2024 ambulatory [facility] Start: 12-17-2024 End: 12-17-2024 Office outpatient visit 25 minutes Savanna Calderon MD Work Phone: [facility] Comment on above: Right carpal tunnel syndrome Start: 12-17-2024 End: 12-17-2024 Subsequent hospital visit by physician [facility] Comment on above: Arrived Start: 12-17-2024 End: 12-17-2024 ambulatory SAVANNA CALDERON [facility] Start: 12-16-2024 End: 12-16-2024 Office outpatient visit 15 minutes Naveed Gustafson ANALYSIS REPORTING DEVELOPER-[employer] Work Phone: [facility] Comment on above: Lumbar stenosis with neurogenic claudication (Primary Dx) Start: 12-16-2024 End: 12-16-2024 Office outpatient visit 40 minutes Cyndi Horn MD Work Phone: [facility] Comment on above: Lumbar radiculopathy (Primary Dx); Hyponatremia; Hypokalemia; Primary hypertension; Severe obstructive sleep apnea; Lumbar stenosis with neurogenic claudication; Acute deep vein thrombosis (DVT) of proximal vein of left lower extremity (Multi) Start: 12-16-2024 End: 12-16-2024 ambulatory [facility] Amb[facility] Start: 12-12-2024 End: 12-12-2024 ambulatory [facility] Start: 12-10-2024 End: 12-10-2024 ambulatory [facility] Start: 12-05-2024 End: 12-05-2024 ambulatory [facility] Start: 12-04-2024 End: 12-04-2024 ambulatory ELIZABETH ROUSSEAU [facility] Start: 11-28-2024 End: 11-28-2024 ambulatory [facility] Start: 11-20-2024 ambulatory [facility] Start: 11-18-2024 End: 11-18-2024 Office outpatient visit 25 minutes Naveed Gustafson ANALYSIS REPORTING DEVELOPER-[employer]ACH Work Phone: [facility] Office Building Comment on above: Lumbar radiculopathy (Primary Dx); Lumbar stenosis with neurogenic claudication Start: 11-18-2024 End: 11-18-2024 ambulatory NAVEED GUSTAFSON [facility] Start: 11-18-2024 End: 11-18-2024 Office outpatient visit 40 minutes Cyndi Horn MD Work Phone: [facility] Comment on above: Other acute pulmonar y embolism without acute cor pulmonale (Primary Dx); Nausea; Need for influenza vaccination; Dyspepsia; Lumbar radiculopathy; Severe obstructive sleep apnea; Hypokalemia; Hyponatremia; Right carpal tunnel syndrome; Acute deep vein thrombosis (DVT) of other specified vein of left lower extremity Start: 11-18-2024 End: 11-18-2024 ambulatory [facility] Ambulatory Start: 11-14-2024 End: 11-16-2024 Evaluation and management of inpatient Abdullahi Alarcon MD Work Phone: [facility] 3 Comment on above: Acute pulmonary embo lism without acute cor pulmonale, unspecified pulmonary embolism type (Multi) (Primary Dx); Personal history of pulmonary embolism; Shortness of breath; Lumbar radiculopathy; Other acute pulmonary embolism without acute cor pulmonale Start: 11-12-2024 End: 11-12-2024 Subsequent hospital visit by physician Steve Jeffery [facility] Comment on above: Weight loss Start: 11-12-2024 End: 11-12-2024 ambulatory CYNDI HORN [facility] Start: 11-11-2024 End: 11-11-2024 Transcribe Orders Cyndi Horn MD Work Phone: [facility] Comment on above: Lumbar radiculopathy (Primary Dx); Hypokalemia; Hyponatremia; Severe obstructive sleep apnea; Noncompliance with medication regimen; Nausea Start: 11-08-2024 End: 11-08-2024 ambulatory CYNDI Hicks [facility] Start: 11-08-2024 End: 11-08-2024 Office outpatient visit 15 minutes Rachael Ram APRN-IRENE, DNP Work Phone: [facility] Comment on above: Primary hypertension (Primary Dx); Hyponatremia; Hypokalemia Start: 11-08-2024 End: 11-08-2024 ambulatory RACHAEL M [facility] Ambulatory Start: 11-06-2024 End: 11-06-2024 [facility] Comment on above: Back pain, unspecifi ed back location, unspecified back pain laterality, unspecified chronicity (Primary Dx) Start: 11-05-2024 End: 11-05-2024 Office outpatient visit 40 minutes Cyndi Horn MD Work Phone: [facility] Comment on above: Lumbar radiculopathy (Primary Dx); Other dysphagia; Hypokalemia; Mood change; Weight loss; Severe sleep apnea; Primary hypertension Start: 11-05-2024 End: 11-05-2024 [facility] Start: 11-02-2024 End: 11-02-2024 Emergency department patient visit Raleigh Stewart DO Work Phone: [facility] Comment on above: Generalized weakness (Primary Dx); Weakness of left leg; Decreased appetite; Hyponatremia Start: 11-01-2024 End: 11-01-2024 Office outpatient new 45 minutes Savanna Calderon MD Work Phone: [facility] Comment on above: Right carpal tunnel syndrome (Primary Dx); Right hand pain Start: 11-01-2024 End: 11-01-2024 ambulatory SAVANNA CALDERON [facility] Start: 11-01-2024 End: 11-01-2024 Subsequent hospital visit by physician Steve [id number] X-Ray [facility] Comment on above: Right hand pain Arrived Start: 10-29-2024 End: 10-29-2024 Office outpatient visit 40 minutes Cyndi Horn MD Work Phone: [facility] Comment on above: Right carpal tunnel syndrome (Primary Dx); Hyponatremia; Hypokalemia; Mood change; Nausea; Noncompliance with medication regimen Start: 10-29-2024 End: 10-29-2024 ambulatory [facility] Ambulatory Start: 10-25-2024 End: 10-25-2024 ambulatory CYNDI JUSTINA [facility] Start: 10-22-2024 End: 10-22-2024 [facility] HORN [facility] Start: 10-21-2024 End: 10-21-2024 Patient encounter procedure Cyndi Horn MD Work Phone: [facility] Comment on above: Carpal tunnel syndro me on right (Primary Dx); Ulnar neuropathy at elbow, right Start: 10-21-2024 End: 10-21-2024 ambulatory CYNDI HORN [facility] Ambulato [facility] Start: 10-18-2024 End: 10-18-2024 ambulatory CYNDI HORN [facility] Start: 10-17-2024 End: 10-17-2024 Office outpatient visit 25 minutes Gerson Ram DO Work Phone: [facility] Office Building Comment on above: Hyponatremia (Primar y Dx); Severe obstructive sleep apnea; Hypokalemia Start: 10-17-2024 End: 10-17-2024 ambulatory [facility] Ambulatory Start: 10-15-2024 End: 10-15-2024 Subsequent hospital visit by physician Tarik Horn DO Work Phone: [facility] [place] Comment on above: Lumbar radiculopathy Start: 10-15-2024 End: 10-15-2024 ambulatory TARIK HORN [facility] Start: 10-14-2024 End: 10-14-2024 ambulatory CYNDI HORN [facility] Start: 10-11-2024 End: 10-11-2024 ambulatory CYNDI HORN [facility] Start: 10-08-2024 End: 10-08-2024 ambulatory CYNDI HORN [facility] Start: 10-04-2024 End: 10-04-2024 Subsequent hospital visit by physician [facility] Comment on above: Lumbar radiculopathy Start: 10-04-2024 End: 10-04-2024 ambulatory CYNDI HORN [facility] Start: 10-03-2024 End: 10-03-2024 Office outpatient visit 25 minutes Gerson Winston Maxim DO Work Phone: [facility] Comment on above: Hyponatremia (Primar y Dx) Start: 10-03-2024 End: 10-03-2024 ambulatory [facility] Ambulatory Start: 10-02-2024 End: 10-02-2024 Office outpatient new 30 minutes Tarik Horn DO Work Phone: [facility] Building Comment on above: Lumbar radiculopathy (Primary Dx); Lumbar spondylosis; Myofascial pain Start: 10-02-2024 End: 10-02-2024 Transcribe Orders Cyndi Horn MD Work Phone: [facility] Comment on above: Numbness and tinglin g in right hand (Primary Dx) Start: 10-01-2024 End: 10-01-2024 Transitional care manage srvc 7 day discharge Cyndi Horn MD Work Phone: [phone] [place] [address] Comment on above: Numbness and tinglin g in right hand (Primary Dx); Lumbar radiculopathy; Hyponatremia Start: 10-01-2024 End: 10-01-2024 ambulatory [facility] Ambulatory Start: 09-30-2024 End: [facility] Start: 09-27-2024 End: 09-27-2024 ambulatory [facility] Start: 09-21-2024 End: 09-24-2024 Evaluation and management of inpatient Clif Caceres DO Work Phone: [facility] Comment on above: Hyponatremia (Primar y Dx); Generalized weakness; Acute left-sided low back pain with left-sided sciatica; Multiple falls Start: 09-19-2024 End: 09-19-2024 Subsequent hospital visit by physician Steve X-Ray 1 [facility] Comment on above: Lumbar radiculopathy Cervical radiculopat hy Start: 09-19-2024 End: 09-19-2024 ambulatory [facility] Ambulatory Start: 09-19-2024 End: 09-19-2024 Office outpatient visit 25 minutes Cyndi Horn MD Work Phone: [facility] Comment on above: Lumbar radiculopathy (Primary Dx); Cervical radiculopathy Start: 09-10-2024 End: 09-10-[address] [facility] Ambulatory Start: 09-10-2024 End: 09-10-2024 Assay of hemosiderin, quant Cyndi Horn MD Work Phone: [facility] Work Phone: Start: 09-10-2024 End: 09-10-2024 Patient encounter procedure Cyndi Horn MD Work Phone: [facility] Comment on above: Acute left-sided low back pain with left-sided sciatica (Primary Dx); Primary hypertension; Hyperlipidemia, unspecified hyperlipidemia type; Acute pain of right shoulder; Routine general medical examination at health care facility Start: 09-08-2024 End: 09-08-2024 ambulatory CYNDI [facility] Start: 09-08-2024 End: 09-08-2024 Office outpatient visit 15 minutes Jose Quispe CNP Work Phone: [facility] [place] Comment on above: Acute left-sided low back pain with left-sided sciatica (Primary Dx); Left leg pain Start: 06-06-2024 End: 06-06-2024 ambulatory CYNDI HORN [facility] Start: 06-06-2024 End: 06-06-2024 Subsequent hospital visit by physician Steve Leyva Mammo [facility] Comment on above: Screening mammogram for breast cancer Start: 02-09-2024 End: 02-09-2024 Office outpatient visit 25 minutes Cyndi Horn MD Work Phone: [facility] Comment on above: Screening mammogram for breast cancer (Primary Dx); Hyperlipidemia, unspecified hyperlipidemia type; Primary hypertension; Elevated glucose; Other osteoporosis without current pathological fracture Start: 02-09-2024 End: 02-09-2024 ambulatory CYNDI HORN [facility] Ambulatory Start: 02-07-2024 End: 02-07-2024 ambulatory CYNDI HORN [facility] Start: 12-20-2023 End: 12-20-2023 Office outpatient new 45 minutes Virginia Velázquez APRN-IRENE, DNP Work Phone: [facility] Office Building Comment on above: Mixed hyperlipidemia (Primary Dx); Agatston CAC score, >400; Primary hypertension; Encounter to discuss test results Start: 12-07-2023 End: 12-07-2023 Office outpatient visit 15 minutes Cyndi Horn MD Work Phone: [facility] Comment on above: Abnormal screening c ardiac CT (Primary Dx); Need for influenza vaccination; Hyperlipidemia, unspecified hyperlipidemia type Start: 11-16-2023 End: 11-16-2023 Subsequent hospital visit by physician Steve Mcnally 1 [facility] Comment on above: Screening for heart disease Start: 11-14-2023 End: 11-15-2023 ambulatory CYNDI HORN Facility:[facility] Start: 10-22-2023 End: 11-17-2023 Chart abstracting [facility] Main Work Phone: Neurology Start: 10-19-2023 End: 10-19-2023 Office outpatient visit 25 minutes Cyndi Horn MD Work Phone: [facility] Comment on above: Anxiety with flying (Primary Dx); Screening for heart disease; Primary hypertension Start: 10-17-2023 End: 10-17-2023 Orders Only Naomi Trejo MD Work Phone: Neurology Comment on above: MARCY (obstructive sle ep apnea) (Primary Dx) Start: 10-13-2023 End: 10-13-2023 Telemedicine consultation with patient Rodri Benoit DMD Work Phone: Dentistry Start: 10-13-2023 End: 10-13-2023 ambulatory Rodri Benoit DMD Work Phone: Dentistry Comment on above: MARCY (obstructive sle ep apnea) (Primary Dx) Start: 08-03-2023 End: 08-03-2023 Assay of hemosiderin, quant Cyndi Horn MD Work Phone: [facility] Work Phone: Start: 08-03-2023 End: 08-03-2023 Office outpatient visit 25 minutes Cyndi Horn MD Work Phone: [facility] Comment on above: Routine general medi osorio examination at health care facility (Primary Dx); Need for hepatitis C screening test; Primary hypertension; Other hyperlipidemia; Elevated glucose; Other osteoporosis without current pathological fracture; Severe obstructive sleep apnea Start: 07-27-2023 End: 07-27-2023 ambulatory RODRI BENOIT Facility:[facility] Start: 07-27-2023 End: 07-27-2023 Patient encounter procedure Rodri Benoit DMD Work Phone: Dentistry Comment on above: MARCY (obstructive sle ep apnea) (Primary Dx) Start: 07-17-2023 Telephone encounter Rodri Benoit DMD Work Phone: Dentistry Comment on above: Appointment Start: 07-12-2023 Telephone encounter Rodri Benoit DMD Work Phone: Dentistry Start: 06-20-2023 End: 06-20-2023 Subsequent hospital visit by physician Steve [id number] X-Ray [facility] Comment on above: Chronic midline thor acic back pain Start: 06-15-2023 End: 06-15-2023 Office outpatient visit 15 minutes Cyndi Horn MD Work Phone: [facility] Comment on above: Chronic midline thor acic back pain (Primary Dx); Other osteoporosis, unspecified pathological fracture presence Start: 06-01-2023 End: 06-01-2023 Subsequent hospital visit by physician Steve Leyva Dxa [facility] Comment on above: Menopause Start: 05-31-2023 End: 06-01-2023 ambulatory CYNDI HORN Facility:[facility] Start: 05-31-2023 End: 05-31-2023 Subsequent hospital visit by physician Steve Leyva Mammo [facility] Comment on above: Screening mammogram for breast cancer Start: 05-21-2023 Chart abstracting [facility] Main Work Phone: Neurology Start: 05-16-2023 End: 05-16-2023 Patient encounter procedure Rodri Alistair Benoit DMD Work Phone: Dentistry Comment on above: MARCY (obstructive sle ep apnea) (Primary Dx) Start: 05-16-2023 End: 05-16-2023 ambulatory RODRI BENOIT Facility:[facility] Start: 05-03-2023 Telephone encounter Rodri Benoit DMD Work Phone: Dentistry Comment on above: Appointment Start: 04-13-2023 Telephone encounter Rodri Hally DMD Work Phone: Dentistry Start: 03-02-2023 End: 03-02-2023 ambulatory CYNDI HORN Facility:[facility] Start: 03-01-2023 End: 03-01-2023 Subsequent hospital visit by physician Steve Ultrasound 2 [facility] Comment on above: Nontoxic single thyr oid nodule Start: 02-17-2023 End: 02-17-2023 ambulatory CYNDI HORN Facility:[facility] Start: 02-10-2023 End: 02-10-2023 ambulatory CYNDI HORN Facility:[facility] Start: 02-10-2023 End: 02-10-2023 Patient encounter procedure Lorena Urbina MD Work Phone: Gynecology Comment on above: S/P gynecological bettencourt rgery, follow-up exam (Primary Dx); Nocturia Start: 02-02-2023 End: 02-02-2023 Office outpatient visit 25 minutes Cyndi Horn MD Work Phone: [facility] Comment on above: Screening mammogram for breast cancer (Primary Dx); Menopause; Other hyperlipidemia; Primary hypertension; Elevated glucose; Other osteoporosis without current pathological fracture Start: 01-03-2023 End: 01-03-2023 Office outpatient new 30 minutes Nguyen Arredondo CNP Work Phone: [facility] [place] Comment on above: Viral illness (Prima ry Dx); Sore throat; Cough, unspecified type Start: 12-28-2022 End: 12-28-2022 ambulatory Harley Hoffman [employer] Work Phone: Gynecology Comment on above: Post-operative state (Primary Dx) Start: 12-28-2022 End: 12-28-2022 Telemedicine consultation with patient Harley Hoffman RASHEED.MEN'S GOLF COACH Work Phone: [facility] Start: 12-19-2022 End: 12-19-2022 ambulatory CYNDI HORN Facility:[facility] Start: 12-19-2022 End: 12-19-2022 Patient encounter procedure Rodri Benoit DMD Work Phone: Dentistry Comment on above: MARCY (obstructive sle ep apnea) (Primary Dx) Start: 12-05-2022 End: 12-05-2022 ambulatory CYNDI HORN Facility:[facility] Start: 12-05-2022 End: 12-05-2022 Patient encounter procedure Rodri Benoit DMD Work Phone: Dentistry Comment on above: MARCY (obstructive sle ep apnea); Difficulty with CPAP use Start: 12-02-2022 Telephone encounter Lorena Butt MD Work Phone: [facility] Comment on above: Patient Question Start: 11-14-2022 Telephone encounter Lorena Butt MD Work Phone: [facility]/Gynecology Start: 11-10-2022 Telephone encounter Lorena Butt MD Work Phone: [facility]Gynecology Comment on above: Results Start: 11-08-2022 End: 11-08-2022 ambulatory Susan Frias MD Work Phone: [facility]Gynecology Comment on above: Pre-Op Visit Start: 11-08-2022 End: 11-08-2022 Patient encounter procedure Susan Frias MD Work Phone: [facility] Start: 11-08-2022 End: 11-08-2022 Patient encounter status Susan Frias MD Work Phone: [facility] Start: 11-08-2022 End: 11-08-2022 Admission to [facility] Pacc Main 4 Work Phone: [facility] Start: 11-08-2022 End: 11-08-2022 ambulatory Pac Main 4 Work Phone: Pre Anesthesia Comment on above: Pre-op evaluation (P rimary Dx); MARCY (obstructive sleep apnea); Primary hypertension; Hyperlipidemia, unspecified hyperlipidemia type Start: 11-08-2022 End: 11-08-2022 Preprocedural examination done Pac Main 4 Work Phone: [facility] Work Phone: Start: 11-03-2022 End: 11-03-2022 ambulatory Nurse Truss Designer Work Phone: Gynecology Comment on above: Educational circumst ances (Primary Dx) Start: 11-03-2022 End: 11-03-2022 Telemedicine consultation with patient Nurse Truss Designer Work Phone: [facility] Start: 07-04-2022 End: 07-04-2022 ambulatory Naomi Trejo MD Work Phone: Neurology Comment on above: MARCY (obstructive sle ep apnea) (Primary Dx); Difficulty with CPAP use; Chronic insomnia; Psychophysiological insomnia Start: 07-04-2022 End: 07-04-2022 Telemedicine consultation with patient Naomi Maya SONI Work Phone: [facility] Start: 06-30-2022 End: 06-30-2022 Assay of hemosiderin, quant Cyndi Horn MD Work Phone: [facility] Work Phone: Start: 06-30-2022 End: 06-30-2022 Office outpatient visit 25 minutes Cyndi Horn MD Work Phone: [facility] Comment on above: Routine general medi osorio examination at [facility] (Primary Dx); Primary hypertension; Need for vaccination; Drooling; Leg cramps; Elevated glucose; Age-related osteoporosis without current pathological fracture Start: 06-12-2022 Chart abstracting Claudine Beal MD Work Phone: URO/Gynecology Start: 06-01-2022 End: 06-01-2022 Assay of hemosiderin, quant Cyndi Horn MD Work Phone: [facility] Work Phone: Start: 06-01-2022 End: 06-01-2022 Office outpatient visit 15 minutes Cyndi Horn MD Work Phone: [facility] Comment on above: Routine general medi osorio examination at health care facility (Primary Dx); Primary hypertension Start: 05-23-[address] Cyndi Horn Facility:[id number] Start: 05-20-2022 Telephone encounter Lorena Butt MD Work Phone: Gynecology Comment on above: Surgery Scheduling C larification; Future Appointment Start: 03-10-2022 Office outpatient vi sit 15 minutes Cyndi Horn Work Phone: [facility] Work Phone: Start: 03-07-2022 End: 03-07-2022 ambulatory Lin Morin MD Work Phone: Neurology Comment on above: Persistent insomnia (Primary Dx); MARCY (obstructive sleep apnea) Start: 03-07-2022 End: 03-07-2022 Telemedicine consultation with patient Lin Morin MD Work Phone: [facility] Start: 02-07-2022 ambulatory Nury Forest on ANALYSIS REPORTING DEVELOPER.[employer]'S GOLF COACH Work Phone: Urogynecology Start: 02-07-2022 Patient encounter status Abiga il Kole ANALYSIS REPORTING DEVELOPER.MEN'S GOLF COACH Work Phone: Urogynecology Start: 02-03-2022 EPV, Provider: Cyndi Horn, Status: Pen, Time: 11:00 AM Cyndi Horn Work Phone: [facility] Work Phone: Start: 02-03-2022 Chart Update Cyndi Horn Work Phone: [facility] Work Phone: Start: 02-02-2022 AUDIT Cyndi Horn Work Phone: [facility] Work Phone: Start: 06-16-2021 End: 06-16-2021 Office outpatient visit 10 minutes Edvin Green MD Work Phone: [facility] Comment on above: Mallet finger, right (Primary Dx) Start: 06-04-2021 Chart Update Cyndi Horn Work Phone: [facility] Work Phone: Start: 06-02-2021 Office outpatient vi sit 25 minutes Cyndi Horn Work Phone: [facility] 205 DO Work Phone: Start: 03-30-2022 Chart Update Cyndi Horn Work Phone: [facility] 205 DO Work Phone: Start: 05-20-2021 Chart Update Cyndi O Horn Work Phone: [facility] Work Phone: Start: 05-17-2021 Chart Update Cyndi Fabiola Horn Work Phone: [facility] Work Phone: Start: 02-04-2021 Office outpatient vi sit 25 minutes Cyndi Horn Work Phone: [facility] Work Phone: Start: 04-04-2020 End: 04-04-2020 Orders Only Lovely Devlin Work Phone: [facility] Start: 03-09-2018 End: 03-10-2018 Patient encounter procedure Cyndi Horn Facility:[facility] Start: 03-08-2018 End: 03-09-2018 Patient encounter procedure Cyndi Horn Facility:[facility] Start: 03-05-2018 End: 03-06-2018 Patient encounter procedure Cyndi Fabiola Horn Facility:[facility] Start: 06-26-2017 End: 09-11-2017 Patient encounter procedure Blanca Herrera [facility] Facility:[facility] Start: 06-20-2017 End: 06-21-2017 Patient encounter procedure Blanca Herrera [facility] Facility:[facility] Start: 06-17-2017 Patient encounter procedure Naveed L Ndiaye Facility:[place] Start: 06-17-2017 End: 06-17-2017 Ambulatory Naveedjon Carrillo Senthil Work Phone: [facility] Start: 02-06-2017 Patient encounter procedure Naveed L Ndiaye Facility:[place] Start: 02-06-2017 End: 02-06-2017 Ambulatory Naveedjon Ramirez Ndiaye Work Phone: [facility] Patient encounter procedure Cyndi Fabiola Horn Work Phone: [facility] Work Phone: Procedures Date Procedure Procedure Detail Performing Clinician Start: 12-30-2024 Assay of gammaglobul in iga igd igg igm each Asya Cunha MD Work Phone: Start: 12-30-2024 Immunofixj electroph oresis serum Asya Cunha MD Work Phone: Start: 12-30-2024 Immunoglobulin light chains.free panel - Serum Asya Cunha MD Work Phone: Start: 12-30-2024 PROTEIN ELECTROPHORE SIS + IMMUNOFIXATION, SERUM Asya Cunha MD Work Phone: Start: 12-17-2024 US Abdomen Savanna weller MD Work Phone: Start: 12-16-2024 Follow-up visit Follow-up CYNDI HORN Start: 11-16-2024 LAVENDER TOP Suzanne kerr MD Work Phone: Start: 11-16-2024 PST TOP Suzanne kerr MD Work Phone: Start: 11-16-2024 Heparin assay Rigoberto Hall MD Work Phone: Start: 11-15-2024 Basic metabolic pane l calcium total Suzanne Steward MD Work Phone: Start: 11-14-2024 Heparin assay Suzanne nicole MD Work Phone: Start: 11-14-2024 Heparin assay Suzanne nicole MD Work Phone: Start: 11-14-2024 RESPIRATORY CARE YANELIS LUATION ONLY Suzanne Steward MD Work Phone: Start: 11-14-2024 Echo tthrc r-t 2d w/ wom-mode compl spec&colr d Blanca Rojo PA-C Work Phone: Start: 11-14-2024 Heparin assay Abdullahi atkinson MD Work Phone: Start: 11-14-2024 Ct angiography chest w/contrast/noncontrast Armond Hoffman DO Work Phone: Start: 11-14-2024 Ct head/brain w/o co ntrast material Armond Hoffman DO Work Phone: Start: 11-14-2024 Assay of lactate Christal Hoffman DO Work Phone: Start: 11-14-2024 Dup-scan xtr veins c omplete bilateral study Suzanne Steward MD Work Phone: Start: 11-14-2024 Ecg routine ecg w/le ast 12 lds trcg only w/o i&r Suzanne Steward MD Work Phone: Start: 11-14-2024 EXTRA TUBES Armond Hoffman DO Work Phone: Start: 11-14-2024 SST TOP Armond Hoffman DO Work Phone: Start: 11-14-2024 End: 11-14-2024 Comprehensive metabolic panel Abdullahi naidu MD Work Phone: Start: 11-02-2024 Influenza virus A an d B RNA [Identifier] in Unspecified specimen by COOPER with probe detection Raleigh Stewart DO Work Phone: Start: 11-02-2024 Respiratory syncytia l virus RNA [Presence] in Respiratory specimen by COOPER with probe detection Raleigh Stewart DO Work Phone: Start: 11-02-2024 SARS-CoV-2 (COVID-19 ) RNA [Presence] in Respiratory specimen by COOPER with probe detection Raleigh Stewart DO Work Phone: Start: 11-02-2024 Ct head/brain w/o co ntrast material Raleigh Stewart DO Work Phone: Start: 11-02-2024 Urnls dip stick/tabl et rgnt auto w/o microscopy Raleigh Stewart DO Work Phone: Start: 11-02-2024 End: 11-02-2024 Comprehensive metabolic panel Raleigh Stewart DO Work Phone: Start: 11-02-2024 Troponin I.cardiac p margie - Serum or Plasma by High sensitivity method Raleigh Lukas Pat DO Work Phone: Start: 11-02-2024 Radex hip unilateral with pelvis 2-3 views Raleigh Lukas Pta DO Work Phone: Start: 11-02-2024 Radiologic exam ches t single view Raleigh Lukas Pat DO Work Phone: Start: 11-01-2024 US Abdomen Savanna weller MD Work Phone: Start: 10-21-2024 Electromyography Rashmi Cohen MD Work Phone: Start: 10-15-2024 FL PAIN MANAGEMENT Nael Herrera Horn DO Work Phone: Start: 10-15-2024 Njx dx/ther sbst int rlmnr lmbr/sac w/img gdn Tarik Horn DO Work Phone: Start: 09-30-2024 Lipid 1996 panel - S juventino or Plasma Cyndi Horn MD Work Phone: Start: 09-24-2024 Basic metabolic pane l calcium total Gerson Ram DO Work Phone: Start: 09-23-2024 Assay of osmolality urine Camryn Child MD Work Phone: Start: 09-23-2024 Comprehensive metabolic panel Gerson Ram DO Work Phone: Start: 09-22-2024 Comprehensive metabolic panel Camryn Child MD Work Phone: Start: 09-21-2024 PULSE OXIMETRY, CONTINUOUS Camryn Child MD Work Phone: Start: 09-21-2024 Ecg routine ecg w/le ast 12 lds trcg only w/o i&r Blanca GONZALEZ-C Work Phone: Start: 09-21-2024 EXTRA URINE HUGHES TUBE K donna Rojo PA-C Work Phone: Start: 09-21-2024 Urinalysis complete W Reflex Culture panel - Urine Blanca Rojo PA-C Work Phone: Start: 09-21-2024 Urnls dip stick/tabl et rgnt auto w/o microscopy Blanca Rojo PA-C Work Phone: Start: 09-21-2024 Ct head/brain w/o co ntrast material Blanca Rojo PA-C Work Phone: Start: 09-21-2024 Ct lumbar spine w/co ntrast material Blanca Rojo PA-C Work Phone: Start: 09-21-2024 EXTRA TUBES Clif D Lemasters DO Work Phone: Start: 09-21-2024 SST TOP Clif D Lemasters DO Work Phone: Start: 09-21-2024 Sars-cov-2 detection by dna/rna Blanca Rojo PA-C Work Phone: Start: 09-21-2024 Radiologic exam ches t single view Blanca Rojo PA-C Work Phone: Start: 09-21-2024 End: 09-21-2024 Comprehensive metabolic panel Blanca Rojo PA-C Work Phone: Start: 09-21-2024 Troponin I.cardiac p margie - Serum or Plasma by High sensitivity method Blanca Rojo PA-C Work Phone: Start: 06-06-2024 Mammography Jose Grab er [employer] GOL[employer] COACH Work Phone: Start: 02-07-2024 Lipid 1996 panel - S juventino or Plasma Cyndi Horn MD Work Phone: Start: 12-20-2023 Ecg routine ecg w/le ast 12 lds w/i&r Virginia Velázquez ANALYSIS REPORTING DEVELOPER-MEN'S GOLF COACH, DNP Work Phone: Start: 06-01-2023 Dxa bone density levon dy 1/> sites axial skel Cyndi Horn MD Work Phone: Start: 05-31-2023 Screening digital br east tomosynthesis bi Cyndi Horn MD Work Phone: Start: 01-31-2023 Lipid 1996 panel - S juventino or Plasma Cyndi Horn MD Work Phone: Start: 01-03-2023 Sars-cov-2 detection by dna/rna Nguyen Fernandezemani Raphael MEN'S GOLF COACH Work Phone: Start: 11-08-2022 Urnls dip stick/tabl et rgnt auto w/o microscopy Susan Frias MD Work Phone: Start: 02-02-2022 Lipid 1996 panel - S juventino or Plasma Cyndi Horn MD Work Phone: Start: 07-24-2019 Colonoscopy Cyndi howell MD Work Phone: Start: 05-19-2016 Colonoscopy Edvin liu MD Work Phone: Start: 05-19-2016 Colonoscopy Cyndi keita Work Phone: Hysterectomy Cyndi Horn Work Phone: Plan of Treatment Date Care Activity Detail Author Start: 09-30-2029 Lipid panel Lipid Panel [facility] Start: 07-23-2029 Screening for malign ant neoplasm of colon [facility] Start: 02-06-2029 Lipid panel Lipid Panel [facility] Start: 02-01-2028 Lipid panel Lipid Panel [facility] Start: 02-02-2027 Lipid 1996 panel - S juventino or Plasma Lipid Screening [facility] Start: 02-02-2027 Lipid panel Lipid Panel [facility] Start: 02-02-2027 LIPID SCREEN LIPID SCREEN [facility] Start: 05-19-2026 Screening for malign ant neoplasm of colon [facility] Start: 01-31-2026 Diabetes Screening Diabetes Screenin [facility] Start: 11-15-2025 Diabetes mellitus screening Diabetes Screening [facility] Start: 11-08-2025 Diabetes Screening Diabetes Screenin g [facility] Start: 11-02-2025 Diabetes mellitus screening Diabetes Screening [facility] Start: 09-30-2025 Diabetes mellitus screening Diabetes Screening [facility] Start: 09-24-2025 Diabetes mellitus screening Diabetes Screening [facility] Start: 09-11-2025 Medicare Annual Well ness Visit Medicare Annual Wellness Visit (AWV) [facility] Start: 06-28-2025 DIABETES SCREEN DIABETES SCREEN [facility] Start: 06-06-2025 Screening for malign ant neoplasm of breast Mammogram [facility] Start: 05-31-2025 Screening for osteoporosis Bone Density Scan [facility] Start: 03-11-2025 End: 03-11-2025 Patient encounter procedure 03/11/2025 1:00 PM EST Office Visit [facility] [address] [place] [address] Savanna Calderon MD [address] [place] [address] [facility] Start: 02-07-2025 End: 02-07-2025 Patient encounter procedure 02/07/2025 11:00 AM EST Office Visit [place] [id number] [facility] [address] [place] [address] Cyndi Horn MD [address] [facility] [address] [place] [address] [facility] Start: 02-06-2025 Diabetes mellitus screening Diabetes Screening [facility] Start: 01-16-2025 End: 01-16-2025 Patient encounter procedure [facility] Start: 01-15-2025 End: 01-15-2025 Patient encounter procedure 01/15/2025 11:30 AM EST Office Visit [facility] [address] [place] [address] Rachael Ram, ANALYSIS REPORTING DEVELOPER-MEN'S GOLF COACH, DNP [address] [place] [address] [facility] Start: 01-13-2025 End: 01-13-2025 Patient encounter procedure [facility] Start: 01-09-2025 End: 02-08-2025 25-hydroxyvitamin D3 [Mass/volume] in Serum or Plasma Vitamin D 25-Hydroxy,Total (for eval of Vitamin D levels) Lab Routine Other osteoporosis without current pathological fracture Expected: 01/09/2025 (Approximate), Expires: 02/08/2025 [facility] Work Phone: Comment on above: Expected: 01/09/2025 (Approximate), Expires: 02/08/2025 Start: 01-09-2025 End: 02-08-2025 CBC W Auto Differential panel - Blood CBC and Auto Differential Lab Routine Hyperlipidemia, unspecified hyperlipidemia type Expected: 01/09/2025 (Approximate), Expires: 02/08/2025 [facility] Work Phone: Comment on above: Expected: 01/09/2025 (Approximate), Expires: 02/08/2025 Start: 01-09-2025 End: 02-08-2025 Cobalamin (Vitamin B12) [Mass/volume] in Serum or Plasma Vitamin B12 Lab Routine Hyperlipidemia, unspecified hyperlipidemia type Expected: 01/09/2025 (Approximate), Expires: 02/08/2025 [facility] Work Phone: Comment on above: Expected: 01/09/2025 (Approximate), Expires: 02/08/2025 Start: 01-09-2025 End: 02-08-2025 Comprehensive metabolic 2000 panel - Serum or Plasma Comprehensive Metabolic Panel Lab Routine Hyperlipidemia, unspecified hyperlipidemia type Expected: 01/09/2025 (Approximate), Expires: 02/08/2025 [facility] Work Phone: Comment on above: Expected: 01/09/2025 (Approximate), Expires: 02/08/2025 Start: 01-09-2025 End: 02-08-2025 Hemoglobin A1c/Hemoglobin.total in Blood Hemoglobin A1C Lab Routine Elevated glucose Expected: 01/09/2025 (Approximate), Expires: 02/08/2025 [facility] Work Phone: Comment on above: Expected: 01/09/2025 (Approximate), Expires: 02/08/2025 Start: 01-09-2025 End: 02-08-2025 Lipid 1996 panel - Serum or Plasma Lipid Panel Lab Routine Hyperlipidemia, unspecified hyperlipidemia type Expected: 01/09/2025 (Approximate), Expires: 02/08/2025 [facility] Work Phone: Comment on above: Expected: 01/09/2025 (Approximate), Expires: 02/08/2025 Start: 01-09-2025 End: 02-08-2025 TSH with reflex to Free T4 if abnormal TSH with reflex to Free T4 if abnormal Lab Routine Hyperlipidemia, unspecified hyperlipidemia type Expected: 01/09/2025 (Approximate), Expires: 02/08/2025 [facility] Work Phone: Comment on above: Expected: 01/09/2025 (Approximate), Expires: 02/08/2025 Start: 12-30-2024 End: 12-30-2025 F5 gene [id number] [Presence] in Blood or Tissue by Molecular genetics method [facility] Service Area Work Phone: Comment on above: Expected: 12/30/2024 (Approximate), Expires: 12/30/2025 Start: 12-30-2024 End: 12-30-2024 Patient encounter procedure 12/30/2024 2:00 PM EST Office Visit [facility] [address] [place] [address] Asya Cunha MD [address] [place] [address] [facility] Start: 12-30-2024 End: 12-30-2025 Prothrombin Gene Mutation [facility] Work Phone: Comment on above: Expected: 12/30/2024 (Approximate), Expires: 12/30/2025 Start: 12-26-2024 End: 12-26-2024 ambulatory 12/26/2024 10:45 AM EDT [facility] [address] [place] [address] Jaydon Harrell, PT [address] [facility] [place] [id number] [facility] Start: 12-24-2024 End: 12-24-2024 ambulatory 12/24/2024 10:45 AM EDT Treatment [facility] [address] [place] [address] Brenda Hernandez, RUG RECEIVING CLERK [address] [facility] [place] [id number] [facility] Start: 12-20-2024 End: 12-20-2024 ambulatory 12/20/2024 10:45 AM EDT Treatment [place] [address] [place] [address] Brenda Hernandez, RUG RECEIVING CLERK [address] [facility] [place] [id number] [facility] Start: 12-18-2024 End: 12-18-2024 ambulatory 12/18/2024 10:45 AM EDT Treatment [place] [id number] [place] [address] Brenda Hernandez, RUG RECEIVING CLERK [address] [facility] [place] [id number] [facility] Start: 12-17-2024 End: 12-17-2024 Patient encounter procedure 12/17/2024 1:00 PM EDT Office Visit [facility] [address] [place] [phone] Savanna Calderon MD [address] [place] [address] [facility] Start: 12-16-2024 End: 12-16-2024 Patient encounter procedure 12/16/2024 11:45 AM EDT Office Visit [facility] Building [address] [place] [address] Naveed Gustafson, ANALYSIS REPORTING DEVELOPER-MEN'S GOLF COACH [address] [place] [address] [facility] Start: 12-16-2024 End: 12-16-2024 Patient encounter procedure 12/16/2024 10:40 AM EDT Office Visit [place] [address] [address] Cyndi Horn MD [address] [address] [facility] Start: 12-12-2024 End: 12-12-2024 ambulatory 12/12/2024 10:45 AM EDT Treatment [place] [address] [place] [phone] Lin Zapata, RUG RECEIVING CLERK [address] [place] [address] [facility] Start: 12-10-2024 End: 12-10-2024 ambulatory 12/10/2024 11:30 AM EDT Treatment [place] [address] [place] [address] Lin Zapata, RUG RECEIVING CLERK [address] [place] [address] [facility] Start: 12-05-2024 End: 12-05-2024 ambulatory 12/05/2024 10:45 AM EDT [facility] [address] [place] [phone] Lin Zapata, RUG RECEIVING CLERK [address] [facility] [place] [address] [facility] Start: 12-04-2024 End: 12-04-2024 ambulatory 12/04/2024 9:00 AM EDT Treatment [facility] [address] [place] [phone] Elizabeth Rousseau, RUG RECEIVING CLERK [address] [facility] [place] [id number] [facility] Start: 11-18-2024 End: 11-18-2024 Patient encounter procedure 11/18/2024 2:45 PM EDT Office Visit [facility] Building [address] [place] [address] Naveed Gustafson, ANALYSIS REPORTING DEVELOPER-MEN'S GOLF COACH [address] [place] [address] [facility] Start: 11-18-2024 End: 11-18-2024 Patient encounter procedure 11/18/2024 10:20 AM EDT Office Visit [address] [phone] Cyndi Horn MD [address] [place] [address] [facility] Start: 11-15-2024 End: 11-08-2025 Basic metabolic 2000 panel - Serum or Plasma Basic metabolic panel Lab Routine Hyponatremia Expected: 11/15/2024 (Approximate), Expires: 11/08/2025 [facility] Service Area Work Phone: Comment on above: Expected: 11/15/2024 (Approximate), Expires: 11/08/2025 Start: 11-15-2024 Orders Only 11/15/2024 Ord ers Only [facility] [address] [place] [address] Rachael Ram, ANALYSIS REPORTING DEVELOPER-MEN'S GOLF COACH, DNP [address] [place] [id number] Hyponatremia [facility] Comment on above: Hyponatremia Start: 11-08-2024 End: 11-08-2024 ambulatory [facility] Start: 11-07-2024 End: 11-07-2024 ambulatory 11/07/2024 1:15 PM EDT Treatment [place] [id number] Jaydon aHrrell, PT [address] [facility] [place] [id number] [facility] Start: 11-05-2024 End: 11-05-2025 CT Chest and Abdomen and Pelvis W contrast IV CT chest abdomen pelvis w IV contrast Imaging Routine Weight loss Expected: 11/05/2024, Expires: 11/05/2025 [facility] Service Area Work Phone: Comment on above: Expected: 11/05/2024 , Expires: 11/05/2025 Start: 11-05-2024 End: 11-05-2024 Patient encounter procedure 11/05/2024 10:00 AM EDT Office Visit [place] [address] [phone] Cyndi Horn MD [address] [place] [phone] [facility] Start: 11-05-2024 End: 11-05-2024 ambulatory 11/05/2024 9:15 AM EDT Treatment [address] [place] [phone] Brenda Hernandez PTA [address] [facility] [place] [id number] [facility] Start: 11-01-2024 End: 11-01-2024 ambulatory 11/01/2024 2:15 PM EDT Treatment [address] [phone] Jaydon Harrell PT [address] [facility] [place], [place] [id number] [facility] Start: 11-01-2024 End: 11-01-2024 Patient encounter procedure 11/01/2024 11:00 AM EDT Office Visit [facility] [address] [place] [address] Mason Phillips PA-C [address] [facility] [place] [address] [facility] Start: 11-01-2024 End: 11-01-2024 ambulatory [facility] Start: 10-31-2024 End: 10-31-2025 XR Hand - right 3 Views XR hand right 3+ views Imaging Routine Right hand pain Expected: 10/31/2024 (Approximate), Expires: 10/31/2025 [facility] Service Area Work Phone: Comment on above: Expected: 10/31/2024 (Approximate), Expires: 10/31/2025 Start: 10-29-2024 End: 10-29-2024 ambulatory 10/29/2024 2:45 PM EDT Treatment [address] [phone] Brenda Hernandez PTA [address] [facility] [place] [address] [facility] Start: 10-29-2024 End: 10-29-2025 Basic metabolic 2000 panel - Serum or Plasma Basic Metabolic Panel Lab Routine Hyponatremia Expected: 10/29/2024 (Approximate), Expires: 10/29/2025 [facility] Work Phone: Comment on above: Expected: 10/29/2024 (Approximate), Expires: 10/29/2025 Start: 10-29-2024 End: 10-29-2025 CBC panel - Blood by Automated count CBC Lab Routine Hyponatremia Expected: 10/29/2024 (Approximate), Expires: 10/29/2025 [facility] Service Area Work Phone: Comment on above: Expected: 10/29/2024 (Approximate), Expires: 10/29/2025 Start: 10-29-2024 End: 10-29-2024 ambulatory 10/29/2024 9:15 AM EDT Treatment [facility] [address] [place] [phone] Brenda Hernandez PTA [address] [facility] [place] [phone] [facility] Start: 10-28-2024 COVID-19 Vaccine ( season) COVID-19 Vaccine ( season) [facility] Start: 10-28-2024 COVID-19 Vaccine ( season) COVID-19 Vaccine ( season) [facility] Start: 10-28-2024 Influenza vaccination Influenza Vacc ine (#1) [facility] Start: 10-25-2024 End: 10-25-2024 [facility] Start: 10-22-2024 End: 10-22-2024 ambulatory 10/22/2024 2:45 PM EDT [facility] [address] [place] [address] Brenda Hernandez RUG RECEIVING CLERK [address] [facility] [place], [place] [id number] [facility] Start: 10-22-2024 End: 10-22-2024 ambulatory 10/22/2024 9:15 AM EDT Treatment [facility] [address] [place] [phone] Brenda Hernandez PTA [address] [facility] [place] [address] [facility] Start: 10-18-2024 End: 10-18-2024 [facility]ulatory [facility] Start: 10-17-2024 End: 10-17-2025 Basic metabolic 2000 panel - Serum or Plasma Basic metabolic panel Lab Routine Hyponatremia Expected: 10/17/2024 (Approximate), Expires: 10/17/2025 [facility] Service Area Work Phone: Comment on above: Expected: 10/17/2024 (Approximate), Expires: 10/17/2025 Start: 10-17-2024 End: 10-17-2024 Patient encounter procedure 10/17/2024 9:30 AM EDT Office Visit [facility] [address] [place] [address] Gerson Ram, [address] [facility] 3 [place], [place] [phone] [facility] Start: 10-15-2024 End: 10-15-2024 ambulatory 10/15/2024 9:15 AM EDT Treatment [address] [phone] Brenda Hernandez PTA [address] [facility] [place] [address] [facility] Start: 10-11-2024 End: 10-11-2024 ambulatory 10/11/2024 9:15 AM EDT Treatment [address] [phone] Valerie Goodwin, RUG RECEIVING CLERK [address] [facility] [place] [address] [facility] Start: 10-08-2024 End: 10-08-2024 ambulatory 10/08/2024 2:45 PM EDT [facility] [address] [place] [address] Valerie Goodwin, RUG RECEIVING CLERK [address] [facility] [place] [address] [facility] Start: 10-04-2024 End: 10-04-2024 Patient encounter procedure 10/04/2024 3:[address] [facility] [address] [place] [address] [facility] Start: 10-03-2024 End: 10-03-2025 Basic metabolic 2000 panel - Serum or Plasma Basic metabolic panel Lab Routine Hyponatremia Expected: 10/03/2024 (Approximate), Expires: 10/03/2025 [facility] Service Area Work Phone: Comment on above: Expected: 10/03/2024 (Approximate), Expires: 10/03/2025 Start: 10-03-2024 End: 10-03-2024 Patient encounter procedure 10/03/2024 9:30 AM EDT Office Visit [facility] [address] [place] [address] Gerson Ram, [address] [facility] 3 [place] [address] [facility] Start: 10-02-2024 End: 10-02-2025 Epidural steroid injection Epidural Steroid Injection Pain Management Routine Lumbar radiculopathy Expected: 10/02/2024, Expires: 10/02/2025 [facility] Work Phone: Comment on above: Expected: 10/02/2024 , Expires: 10/02/2025 Start: 10-02-2024 End: 10-02-2025 FL pain management [place] pain management Imaging Routine Lumbar radiculopathy Expected: 10/02/2024 (Approximate), Expires: 10/02/2025 [facility] Service Area Work Phone: Comment on above: Expected: 10/02/2024 (Approximate), Expires: 10/02/2025 Start: 10-01-2024 End: 10-01-2025 EMG & nerve conduction EMG & nerve conduction Neurology Routine Numbness and tingling in right hand Expected: 10/01/2024 (Approximate), Expires: 10/01/2025 [facility] Service Area Work Phone: Comment on above: Expected: 10/01/2024 (Approximate), Expires: 10/01/2025 Start: 10-01-2024 End: 10-01-2025 MR Lumbar spine WO contrast MR lumbar spine wo IV contrast Imaging Routine Lumbar radiculopathy Expected: 10/01/2024, Expires: 10/01/2025 [facility] Work Phone: Comment on above: Expected: 10/01/2024 , Expires: 10/01/2025 Start: 10-01-2024 End: 10-01-2024 Patient encounter procedure 10/01/2024 10:20 AM EDT Office Visit [address] [phone] Cyndi Horn MD [address] [place] [address] [facility] Start: 09-27-2024 End: 09-27-2024 ambulatory 09/27/2024 11:30 AM EDT [facility] [address] [place] [phone] Jaydon Harrell PT [address] [facility] [place] [address] [facility] Start: 09-24-2024 End: 10-02-2025 Basic metabolic 2000 panel - Serum or Plasma Basic metabolic panel Lab Routine Hyponatremia Expected: 09/24/2024 (Approximate), Expires: 10/02/2025 [facility] Area Work Phone: Comment on above: Expected: 09/24/2024 (Approximate), Expires: 10/02/2025 Start: 09-19-2024 End: 09-19-2025 XR Cervical spine 2 or 3 Views [facility] Work Phone: Comment on above: Expected: 09/19/2024 , Expires: 09/19/2025 Once for 1 Occurrenc es starting 09/19/2024 until 09/19/2024 Start: 09-19-2024 End: 09-19-2025 XR Lumbar spine 2 or 3 Views [facility] Work Phone: Comment on above: Expected: 09/19/2024 , Expires: 09/19/2025 Once for 1 Occurrenc es starting 09/19/2024 until 09/19/2024 Start: 08-03-2024 Medicare Annual Well ness Visit Medicare Annual Wellness Visit (AWV) [facility] Start: 06-06-2024 End: 06-06-2024 Patient encounter procedure 06/06/2024 10:00 AM EDT Appointment [address] [phone] [facility] Start: 02-09-2024 End: 04-11-2025 DBT Breast - bilateral BI mammo bilateral screening tomosynthesis Imaging Routine Screening mammogram for breast cancer Expected: 02/09/2024, Expires: 04/11/2025 [facility] Work Phone: Comment on above: Expected: 02/09/2024 , Expires: 04/11/2025 Start: 02-01-2024 Diabetes mellitus screening Diabetes Screening [facility] Start: 02-01-2024 End: 02-01-2024 Patient encounter procedure [facility] Start: 01-03-2024 End: 08-02-2024 25-hydroxyvitamin D3 [Mass/volume] in Serum or Plasma Vitamin D 25-Hydroxy,Total (for eval of Vitamin D levels) Lab Routine Primary hypertension Other osteoporosis without current pathological fracture Expected: 01/03/2024 (Approximate), Expires: 08/02/2024 [facility] Work Phone: Comment on above: Expected: 01/03/2024 (Approximate), Expires: 08/02/2024 Start: 01-03-2024 End: 08-02-2024 CBC W Auto Differential panel - Blood CBC and Auto Differential Lab Routine Primary hypertension Expected: 01/03/2024 (Approximate), Expires: 08/02/2024 [facility] Work Phone: Comment on above: Expected: 01/03/2024 (Approximate), Expires: 08/02/2024 Start: 01-03-2024 End: 08-02-2024 Cobalamin (Vitamin B12) [Mass/volume] in Serum or Plasma Vitamin B12 Lab Routine Primary hypertension Expected: 01/03/2024 (Approximate), Expires: 08/02/2024 [facility] Work Phone: Comment on above: Expected: 01/03/2024 (Approximate), Expires: 08/02/2024 Start: 01-03-2024 End: 08-02-2024 Comprehensive metabolic 2000 panel - Serum or Plasma Comprehensive Metabolic Panel Lab Routine Primary hypertension Expected: 01/03/2024 (Approximate), Expires: 08/02/2024 [facility] Work Phone: Comment on above: Expected: 01/03/2024 (Approximate), Expires: 08/02/2024 Start: 01-03-2024 End: 08-02-2024 Hemoglobin A1c/Hemoglobin.total in Blood Hemoglobin A1C Lab Routine Primary hypertension Elevated glucose Expected: 01/03/2024 (Approximate), Expires: 08/02/2024 [facility] Work Phone: Comment on above: Expected: 01/03/2024 (Approximate), Expires: 08/02/2024 Start: 01-03-2024 End: 08-02-2024 Lipid 1996 panel - Serum or Plasma Lipid Panel Lab Routine Primary hypertension Other hyperlipidemia Expected: 01/03/2024 (Approximate), Expires: 08/02/2024 [facility] Work Phone: Comment on above: Expected: 01/03/2024 (Approximate), Expires: 08/02/2024 Start: 01-03-2024 End: 08-02-2024 TSH with reflex to Free T4 if abnormal TSH with reflex to Free T4 if abnormal Lab Routine Primary hypertension Expected: 01/03/2024 (Approximate), Expires: 08/02/2024 [facility] Work Phone: Comment on above: Expected: 01/03/2024 (Approximate), Expires: 08/02/2024 Start: 12-13-2023 End: 12-13-2023 Patient encounter procedure 12/13/2023 3:15 PM EDT Office Visit [facility] [address] [place] [phone] Virginia Velázquez, ANALYSIS REPORTING DEVELOPER-MEN'S GOLF COACH, DNP [address], [facility] 2 [place] [address] [facility] Start: 11-16-2023 End: 11-16-2023 Patient encounter procedure 11/16/2023 10:[address] [facility] [address] [place] [phone] [facility] Start: 10-29-2023 COVID-19 Vaccine () COVID-19 Vaccine () [facility] Start: 10-29-2023 COVID-19 Vaccine () COVID-19 Vaccine () [facility] Start: 10-29-2023 Covid-19 Vaccine () Covid-19 Vaccine () [facility] Start: 10-29-2023 COVID-19 Vaccine () COVID-19 Vaccine () [facility] Start: 10-29-2023 Influenza vaccination Influenza Vacc ine (#1) [facility] Start: 10-19-2023 End: 10-18-2024 CT for calcium scoring WO contrast and CTA W contrast IV Heart and coronary arteries CT cardiac scoring wo IV contrast Imaging Routine Screening for heart disease Expected: 10/19/2023, Expires: 10/18/2024 [facility] Service Area Work Phone: Comment on above: Expected: 10/19/2023 , Expires: 10/18/2024 Start: 10-13-2023 End: 10-13-2023 Patient encounter procedure 10/13/2023 1:45 PM EDT Office Visit Dentistry [address] [place], [place] [phone] Rodri Benoit, DMD [address] [place], [place] [phone] 1 month follow up Dentistry Comment on above: 1 month follow up Start: 08-29-2023 End: 08-29-2023 ambulatory 08/29/2023 1:45 PM EDT Treatment [address] [phone] Song Chen, PT [address] [facility] [place], [place] [phone] [facility] Start: 08-24-2023 End: 08-24-2023 ambulatory 08/24/2023 1:30 PM EDT Treatment [address] [phone] oSng Chen, PT [address] [facility] [place], [place] [phone] [facility] Start: 08-10-2023 End: 08-10-2023 ambulatory 08/10/2023 1:30 PM EDT Treatment [address] [phone] Song Chen, PT [address] [facility] [place] [phone] [facility] Start: 08-03-2023 End: 08-02-2024 Hepatitis C virus Ab [Presence] in Serum Hepatitis C antibody Lab Routine Need for hepatitis C screening test Expected: 08/03/2023 (Approximate), Expires: 08/02/2024 [facility] Service Area Work Phone: Comment on above: Expected: 08/03/2023 (Approximate), Expires: 08/02/2024 Start: 08-03-2023 End: 08-03-2023 Patient encounter procedure 08/03/2023 10:20 AM EDT Office Visit [address] [phone] [place] [address] [place] [address] Medical Office [place], [place] [phone] [facility] Start: 07-27-2023 End: 07-27-2023 Patient encounter procedure 07/27/2023 10:20 AM EDT Office Visit Dentistry [address] [address] Rodri Benoit, DMD [address] [place], [place] [phone] Sleep follow up for possible adjustment Dentistry Comment on above: Sleep follow up for possible adjustment Start: 07-02-2023 Covid-19 Vaccine ( season) Covid-19 Vaccine () [facility] Start: 07-02-2023 Medicare Annual Well ness Visit Medicare Annual Wellness Visit (AWV) [facility] Start: 06-15-2023 End: 06-14-2024 XR Thoracic spine 3 Views XR thoracic spine 3 views Imaging Routine Chronic midline thoracic back pain Expected: 06/15/2023, Expires: 06/14/2024 [facility] Service Area Work Phone: Comment on above: Expected: 06/15/2023 , Expires: 06/14/2024 Start: 06-15-2023 End: 06-15-2023 Patient encounter procedure 06/15/2023 11:40 AM EDT Office Visit [facility] [address] [place] [phone] Cyndi Horn MD [address] [facility] [place] [address] [facility] Start: 06-03-2023 Medicare Annual Well ness Visit Medicare Annual Wellness Visit (AWV) [facility] Start: 06-02-2023 End: 04-05-2024 DBT Breast - bilateral BI mammo bilateral screening tomosynthesis Imaging Routine Screening mammogram for breast cancer Expected: 06/02/2023 (Approximate), Expires: 04/05/2024 [facility] Work Phone: Comment on above: Expected: 06/02/2023 (Approximate), Expires: 04/05/2024 Start: 06-02-2023 End: 02-03-2024 DXA Skeletal system Views for bone density XR DEXA bone density Imaging Routine Menopause Expected: 06/02/2023 (Approximate), Expires: 02/03/2024 [facility] Service Area Work Phone: Comment on above: Expected: 06/02/2023 (Approximate), Expires: 02/03/2024 Start: 06-01-2023 End: 06-01-2023 Patient encounter procedure 06/01/2023 11:15 AM EDT Appointment [facility] [address] [facility] [address] [place] [phone] [facility] Start: 05-31-2023 End: 05-31-2023 Professional / ancillary services management [facility] Start: 05-26-2023 Screening for osteoporosis Bone Density Scan [facility] Start: 04-28-2023 COVID-19 Vaccine () COVID-19 Vaccine () [facility] Start: 04-28-2023 COVID-19 Vaccine () COVID-19 Vaccine () [facility] Start: 03-03-2023 COVID-19 Vaccine () COVID-19 Vaccine () [facility] Start: 02-27-2023 Advance Directive Discussion Advance Directive Discussion [facility] Start: 02-27-2023 Behavioral Health Screening Behavioral Health Screening [facility] Start: 02-27-2023 Depression Assessment Depression Ass essment [facility] Start: 02-02-2023 Diabetes mellitus screening Diabetes Screening [facility] Start: 02-02-2023 EPV, Provider: Cyndi Horn, Status: Pen, Time: 11:00 AM EPV, Provider: Cyndi Horn, Status: Pen, Time: 11:00 AM [facility] Work Phone: Start: 02-02-2023 End: 02-02-2023 Patient encounter procedure 02/02/2023 11:00 AM EST Office Visit [address] [phone] [place] [address] [place] [address] [place] [address] [facility] Start: 01-27-2023 End: 07-01-2023 25-hydroxyvitamin D3 [Mass/volume] in Serum or Plasma Vitamin D, Total Lab Routine Age-related osteoporosis without current pathological fracture Expected: 01/27/2023 (Approximate), Expires: 07/01/2023 [facility] Work Phone: Comment on above: Expected: 01/27/2023 (Approximate), Expires: 07/01/2023 Start: 01-27-2023 End: 07-01-2023 CBC W Auto Differential panel - Blood CBC and Auto Differential Lab Routine Primary hypertension Expected: 01/27/2023 (Approximate), Expires: 07/01/2023 [facility] Service Area Work Phone: Comment on above: Expected: 01/27/2023 (Approximate), Expires: 07/01/2023 Start: 01-27-2023 End: 07-01-2023 Cobalamin (Vitamin B12) [Mass/volume] in Serum or Plasma Vitamin B12 Lab Routine Primary hypertension Expected: 01/27/2023 (Approximate), Expires: 07/01/2023 [facility] Work Phone: Comment on above: Expected: 01/27/2023 (Approximate), Expires: 07/01/2023 Start: 01-27-2023 End: 07-01-2023 Comprehensive metabolic 2000 panel - Serum or Plasma Comprehensive Metabolic Panel Lab Routine Primary hypertension Expected: 01/27/2023 (Approximate), Expires: 07/01/2023 [facility] Work Phone: Comment on above: Expected: 01/27/2023 (Approximate), Expires: 07/01/2023 Start: 01-27-2023 End: 07-01-2023 Hemoglobin A1c/Hemoglobin.total in Blood Hemoglobin A1C Lab Routine Primary hypertension Elevated glucose Expected: 01/27/2023 (Approximate), Expires: 07/01/2023 [facility] Work Phone: Comment on above: Expected: 01/27/2023 (Approximate), Expires: 07/01/2023 Start: 01-27-2023 End: 07-01-2023 Lipid 1996 panel - Serum or Plasma Lipid Panel Lab Routine Primary hypertension Expected: 01/27/2023 (Approximate), Expires: 07/01/2023 [facility] Work Phone: Comment on above: Expected: 01/27/2023 (Approximate), Expires: 07/01/2023 Start: 01-27-2023 End: 07-01-2023 Microalbumin/Creatinine [Mass Ratio] in Urine Albumin , Urine Random Lab Routine Primary hypertension Expected: 01/27/2023 (Approximate), Expires: 07/01/2023 [facility] Work Phone: Comment on above: Expected: 01/27/2023 (Approximate), Expires: 07/01/2023 Start: 01-27-2023 End: 07-01-2023 TSH with reflex to Free T4 if abnormal TSH with reflex to Free T4 if abnormal Lab Routine Primary hypertension Expected: 01/27/2023 (Approximate), Expires: 07/01/2023 [facility] Work Phone: Comment on above: Expected: 01/27/2023 (Approximate), Expires: 07/01/2023 Start: 01-27-2023 End: 07-01-2023 Urinalysis microscopic panel - Urine Qualitative by Automated Urinalysis Microscopic Only Lab Routine Primary hypertension Expected: 01/27/2023 (Approximate), Expires: 07/01/2023 [facility] Work Phone: Comment on above: Expected: 01/27/2023 (Approximate), Expires: 07/01/2023 Start: 10-28-2022 Covid-19 Vaccine ( season) Covid-19 Vaccine ( season) [facility] Start: 10-28-2022 Influenza vaccination [facility] Start: 06-30-2022 End: 06-30-2022 Patient encounter procedure 06/30/2022 9:00 AM EDT Office Visit [facility] [address] [place] [phone] Cyndi Horn MD [address] [facility] [place] [address] [facility] Start: 06-01-2022 End: 06-02-2023 Basic metabolic 2000 panel - Serum or Plasma Basic Metabolic Panel Lab Routine Primary hypertension Expected: 06/01/2022 (Approximate), Expires: 06/02/2023 [facility] Service Area Work Phone: Comment on above: Expected: 06/01/2022 (Approximate), Expires: 06/02/2023 Start: 05-25-2022 Screening for osteoporosis Bone Density Scan [facility] Start: 05-14-2022 COVID-19 VACCINE (6 - Moderna series) COVID-19 VACCINE (6 - Moderna series) [facility] Start: 03-11-2022 COVID-19 Vaccine (5 - Booster for Moderna series) COVID-19 Vaccine (5 - Booster for Moderna series) [facility] Start: 03-11-2022 COVID-19 Vaccine (5 - Moderna series) COVID-19 Vaccine (5 - Moderna series) [facility] Start: 02-27-2022 ADVANCE DIRECTIVE DISCUSSION ADVANCE DIRECTIVE DISCUSSION [facility] Start: 02-27-2022 DEPRESSION ASSESSMENT DEPRESSION ASS ESSMENT [facility] Start: 02-07-2022 End: 04-09-2022 Basic metabolic 2000 panel - Serum or Plasma BASIC METABOLIC PNL Lab Routine Vaginal vault prolapse Cystocele, midline Pre-op testing Expected: 02/07/2022, Expires: 04/09/2022 [facility] Work Phone: Comment on above: Expected: 02/07/2022 , Expires: 04/09/2022 Start: 02-07-2022 End: 04-09-2022 CBC W Auto Differential panel - Blood CBC + DIFF Lab Routine Vaginal vault prolapse Cystocele, midline Pre-op testing Expected: 02/07/2022, Expires: 04/09/2022 [facility] Work Phone: Comment on above: Expected: 02/07/2022 , Expires: 04/09/2022 Start: 02-07-2022 End: 04-09-2022 TYPE AND SCREEN,30 DAY TYPE AND SCREEN,30 DAY Blood Bank Routine Vaginal vault prolapse Cystocele, midline Pre-op testing Expected: 02/07/2022, Expires: 04/09/2022 [facility] Work Phone: Comment on above: Expected: 02/07/2022 , Expires: 04/09/2022 Start: 02-03-2022 EPV, Provider: Cyndi Horn, Status: Pen, Time: 11:00 AM EPV, Provider: Cyndi Horn, Status: Pen, Time: 11:00 AM [facility] Work Phone: Start: 10-28-2021 Influenza vaccination INFLUENZA (#1) [facility] Start: 07-13-2021 NPV, Provider: Brody Becker, Status: Pen, Time: 8:30 AM NPV, Provider: Brody Becker, Status: Pen, Time: 8:30 AM [facility] Work Phone: Start: 06-02-2021 FUV, Provider: Cyndi Horn, Status: Pen, Time: 10:20 AM FUV, Provider: Cyndi Horn, Status: Pen, Time: 10:20 AM [facility] 205 DO Work Phone: Start: 02-27-2021 ADVANCE DIRECTIVE DISCUSSION ADVANCE DIRECTIVE DISCUSSION [facility] Start: 02-27-2021 DEPRESSION ASSESSMENT DEPRESSION ASS ESSMENT [facility] Start: 10-29-2019 Influenza vaccinatio n given Sequential Influenza Vaccine (#1) [facility] Start: 10-28-2016 Influenza vaccination SEQUENTI AL INFLUENZA VACCINE (#1) [facility] Work Phone: Start: 12-17-2015 Tetanus vaccination Tetanus: Every 1 0yrs [facility] Start: 12-28-2011 BONE DENSITY BONE DENSITY [facility] Start: 12-28-2011 Bone Density Screening Bone Density Screening [facility] Start: 12-28-2011 Fall risk assessment Falls Risk Asse ssment [facility] Start: 12-28-2011 Pneumococcal vaccination PNEUM OCOCCAL VACCINE AGE 65+ (1 of 2 - PCV13) [facility] Work Phone: Start: 12-28-2011 Pneumococcal Vaccine : 65+ (1 - PCV) Pneumococcal Vaccine: 65+ (1 - PCV) [facility] Start: 12-28-2011 PNEUMOCOCCAL: 65+ (1 - PCV) PNEUMOCOCCAL: 65+ (1 - PCV) [facility] Start: 12-28-2011 Screening for osteoporosis Bone Density Screening [facility] Start: 2006 RSV patient s and/or patients aged 60+ years (1 - 1-dose 60+ series) RSV patients and/or patients aged 60+ years (1 - 1-dose 60+ series) [facility] Start: 2006 RSV Vaccine (1 - 1-d ose 60+ series) RSV Vaccine (1 - 1-dose 60+ series) [facility] Start: 2006 Zoster vacc, sc ZOSTER VACCINE [facility] Work Phone: Start: 12-17-2005 DTaP/Tdap/Td Vaccine s (1 - Tdap) DTaP/Tdap/Td Vaccines (1 - Tdap) [facility] Start: 12-17-2005 Urine microalbumin profile DTaP,Tdap,Td Vaccine (1 - Tdap) [facility] Start: 1996 Administration of he rpes zoster vaccine Zoster Vaccines (1 of 2) [facility] Start: 1996 Screening for malign ant neoplasm of colon [facility] Start: 1996 SHINGRIX VACCINE (1 of 2) SHINGRIX VACCINE (1 of 2) [facility] Start: 12-28-1991 COLOGUARD (FIT-DNA) COLOGUARD (FIT-D NA) [facility] Start: 12-28-1991 Colonoscopy COLONOSCOPY [facility] Start: 12-28-1991 COLORECTAL CANCER SCREENING COLORECTAL CANCER SCREENING [facility] Start: 12-28-[address] COLONOGRAPHY [facility] Start: 12-28-1991 DIABETES SCREEN DIABETES SCREEN [facility] Start: 12-28-1991 FECAL OCCULT BLOOD FECAL OCCULT BLOO D [facility] Start: 12-28-1991 LIPID SCREEN LIPID SCREEN [facility] Start: 12-28-1991 SIGMOIDOSCOPY SIGMOIDOSCOPY [facility] Start: 1986 Screening for malign ant neoplasm of breast Mammogram [facility] Start: 1965 Urine microalbumin profile [facility] Start: 1964 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 Annual PCP Team Chronic Disease Visit [facility] Start: 1964 Anxiety Screening Anxiety Screening [facility] Start: 1964 BP Controlled (<130/80) BP Controlle d (<130/80) [facility] [facility] Start: 1964 Depression Screening Depression Scre ening [facility] Start: 1964 Hepatitis C antibody , confirmatory test Hepatitis C Screening [facility] Start: 1964 Hepatitis C screening Hepatitis C Sc reening [facility] Start: 1964 HEPATITIS C SCREENING HEPATITIS C SC REENING [facility] Start: 1962 COVID-19 Vaccine (1 of 2) COVID-19 Vaccine (1 of 2) [facility] Start: 1958 Adolescent depressio n screening assessment Depression Screening (PHQ9) [facility] Start: 1958 Depression screening using PHQ-9 (Patient Health Questionnaire 9) score [facility] Start: 1949 History and physical examination, annual for health maintenance Wellness Visit [facility] Start: 1949 Medicare Wellness Visit Medicare Wel lness Visit [facility] Start: 1946 Fall risk assessment Falls Risk Asse ssment [facility] Start: 1946 Medicare Annual Well ness Visit Medicare Annual Wellness Visit (AWV) [facility] Start: 1946 Screening for malign ant neoplasm of colon [facility] Start: 1946 Screening mammography Mammogram [facility] Start: 1946 HEPATITIS C SCREENING HEPATITIS C SC [facility] Work Phone: Start: 1946 Screening colonoscopy COLONOSCOPY [facility] Work Phone: Start: 1946 End: 1946 Screening for osteoporosis DEXA SCAN [facility] Start: 1946 End: 1946 Tetanus vaccination [facility] Work Phone: End: 11-12-2024 CT Chest and Abdomen and Pelvis W contrast IV [facility] Service Area Work Phone: Comment on above: Once for 1 Occurrenc es starting 11/12/2024 until 11/12/2024 End: 11-16-2023 CT for calcium scoring WO contrast and CTA W contrast IV Heart and coronary arteries [facility] Service Area Work Phone: Comment on above: Once for 1 Occurrenc es starting 11/16/2023 until 11/16/2023 End: 05-31-2023 DBT Breast - bilateral [facility] Service Area Work Phone: Comment on above: Once for 1 Occurrenc es starting 05/31/2023 until 05/31/2023 End: 06-06-2024 DBT Breast - bilateral [facility] Work Phone: Comment on above: Once for 1 Occurrenc es starting 06/06/2024 until 06/06/2024 End: 11-02-2024 ECG 12 Lead ECG 12 Lead ECG STAT Once for 1 Occurrences starting 11/02/2024 until 11/02/2024 [facility] Work Phone: Comment on above: Once for 1 Occurrenc es starting 11/02/2024 until 11/02/2024 Electrocardiogram, 12-lead PRN ACS symptoms Electrocardiogram, 12-lead PRN ACS symptoms ECG Routine As needed until discontinued starting 09/21/2024 [facility] Work Phone: Comment on above: As needed until disc ontinued starting 09/21/2024 Electrocardiogram, 12-lead PRN ACS symptoms Electrocardiogram, 12-lead PRN ACS symptoms ECG Routine As needed until discontinued starting 11/14/2024 [facility] Work Phone: Comment on above: As needed until disc ontinued starting 11/14/2024 End: 11-16-2024 Extra Tubes [facility] Work Phone: Comment on above: Once (Lab) for 1 Occ urrences starting 11/16/2024 until 11/16/2024 End: 11-02-2024 Extra Urine [facility] Work Phone: Comment on above: Once for 1 Occurrenc es starting 11/02/2024 until 11/02/2024 Heparin unfractionat ed [Units/volume] in Platelet poor plasma by Chromogenic method Heparin Assay, [facility] Lab STAT As needed (Lab) for 30 Occurrences starting 11/14/2024 [facility] Work Phone: Comment on above: As needed (Lab) for 30 Occurrences starting 11/14/2024 End: 11-17-2024 Heparin unfractionated [Units/volume] in Platelet poor plasma by Chromogenic method Heparin Assay Lab Routine Morning draw (Lab) for 1 Occurrences starting 11/17/2024 until 11/17/2024 [facility] Work Phone: Comment on above: Morning draw (Lab) f or 1 Occurrences starting 11/17/2024 until 11/17/2024 End: 03-07-2023 HOME SLEEP APNEA TEST (HSAT) HOME SLEEP APNEA TEST (HSAT) Procedures Routine MARCY (obstructive sleep apnea) 1 Occurrences starting 03/07/2022 until 03/07/2023 [facility] Work Phone: Comment on above: 1 Occurrences starti ng 03/07/2022 until 03/07/2023 End: 05-15-2024 HOME SLEEP APNEA TEST (HSAT) HOME SLEEP APNEA TEST (HSAT) Procedures Routine MARCY (obstructive sleep apnea) 1 Occurrences starting 05/16/2023 until 05/15/2024 [facility] Work Phone: Comment on above: 1 Occurrences starti ng 05/16/2023 until 05/15/2024 End: 10-16-2024 HOME SLEEP APNEA TEST (HSAT) HOME SLEEP APNEA TEST (HSAT) Procedures Routine MARCY (obstructive sleep apnea) 1 Occurrences starting 10/17/2023 until 10/16/2024 [facility] Work Phone: Comment on above: 1 Occurrences starti ng 10/17/2023 until 10/16/2024 Lavender Top Lavender Top Lab Routine 11/16/2024 5:12 AM EDT [facility] Work Phone: End: 10-04-2024 MR Lumbar spine WO contrast [facility] Service Area Work Phone: Comment on above: Once for 1 Occurrenc es starting 10/04/2024 until 10/04/2024 PST Top PST Top Lab Rout ine 11/16/2024 5:12 AM EDT [facility] Work Phone: SLEEP FOLLOW UP SLEEP FOLLOW UP Dental Routine 1 Occurrences starting 05/16/2023 [facility] Work Phone: Comment on above: 1 Occurrences starti ng 05/16/2023 SLEEP FOLLOW UP SLEEP FOLLOW UP Dental Routine 1 Occurrences starting 07/27/2023 [facility] Work Phone: Comment on above: 1 Occurrences starti ng 07/27/2023 End: 11-02-2024 Urinalysis complete W Reflex Culture panel - Urine [facility] Service Area Work Phone: Comment on above: STAT (Lab) for 1 Occ urrences starting 11/02/2024 until 11/02/2024 End: 03-01-2023 US Thyroid gland [facility] Service Area Work Phone: Comment on above: Once for 1 Occurrenc es starting 03/01/2023 until 03/01/2023 End: 11-01-2024 XR Hand - right 3 Views [facility] Work Phone: Comment on above: Once for 1 Occurrenc es starting 11/01/2024 until 11/01/2024 End: 06-20-2023 XR Thoracic spine 3 Views [facility] Service Area Work Phone: Comment on above: Once for 1 Occurrenc es starting 06/20/2023 until 06/20/2023 [facility] Immunizations Immunization Date Immunization Notes Care Provider Raad martinez 11-18-2024 influenza, high dose seasonal, preservative-free Cyndi Horn MD Work Phone: [facility] Work Phone: 12-07-2023 Seasonal, trivalent, recombinant, injectable influenza vaccine, preservative free Cyndi Horn MD Work Phone: [facility] Work Phone: 12-07-2023 influenza virus vacc ine, unspecified formulation Jose Quispe [employer] Work Phone: [facility] 03-03-2023 Pfizer SARS-CoV-2 3 mcg/0.2 mL [facility] Work Phone: 12-26-2022 INFLUENZA IIV4 FLUAD [id number] Nguyen Arredondo [employer] Work Phone: [facility] 12-26-2022 Respiratory Syncytia l Virus Vaccine, Adjuvanted (Arexvy/RSV), Historical Nguyen Arredondo [employer] Work Phone: [facility] 12-26-2022 Seasonal, quadrivale nt, recombinant, injectable influenza vaccine, preservative free Cyndi Horn MD Work Phone: [facility] 12-26-2022 influenza virus vacc ine, unspecified formulation Rodri Benoit DMD Work Phone: [facility] 06-30-2022 Pneumococcal Conjuga te Pcv 20 Cyndi Horn MD Work Phone: [facility] 01-14-2022 Moderna COVID-19 Biv al Booster 50 MCG/0.5ML Intramuscular Suspension Cyndi Horn Work Phone: [facility] Work Phone: Comment on above: Series: 12-31-2021 influenza virus vacc ine, unspecified formulation Cyndi Horn Work Phone: [facility] Work Phone: Comment on above: Series: 07-21-2021 Moderna COVID-19 Vac cine 100 MCG/0.5ML Intramuscular Suspension Cyndi Horn Work Phone: [facility] Work Phone: Comment on above: Series: 01-14-2021 Moderna COVID-19 Vac cine 100 MCG/0.5ML Intramuscular Suspension Cyndi Horn Work Phone: [facility] Work Phone: 12-08-2020 Fluzone High-Dose Quadrivalent 0.7 ML Intramuscular Suspension Prefilled Syringe Cyndi Horn Work Phone: [facility] Work Phone: 12-08-2020 influenza virus vacc ine, unspecified formulation Cyndi Horn MD Work Phone: [facility] Work Phone: 06-02-2020 Moderna COVID-19 Vac cine 100 MCG/0.5ML Intramuscular Suspension Cyndi Horn Work Phone: [facility] Work Phone: 05-05-2020 Moderna COVID-19 Vac cine 100 MCG/0.5ML Intramuscular Suspension Cyndi Horn Work Phone: [facility] Work Phone: 02-17-2020 zoster vaccine recombinant Cyndi Horn Work Phone: [facility] Work Phone: Comment on above: Series: 11-27-2019 influenza virus vacc ine, unspecified formulation Cyndi Horn Work Phone: [facility] Work Phone: Comment on above: Series: 11-27-2019 influenza, injectabl e, quadrivalent, preservative free Cyndi Horn MD Work Phone: [facility] Work Phone: 11-27-2019 zoster vaccine recombinant Cyndi Horn Work Phone: [facility] Work Phone: Comment on above: Series: 01-07-2019 Seasonal trivalent influenza vaccine, adjuvanted, preservative free Cyndi Horn Work Phone: [facility] Work Phone: 12-11-2017 Seasonal trivalent influenza vaccine, adjuvanted, preservative free Cyndi Horn Work Phone: [facility] Work Phone: 02-15-2017 influenza, injectabl e, quadrivalent, preservative free Cyndi Horn Work Phone: [facility] Work Phone: 03-05-2015 pneumococcal conjuga te vaccine, 13 valent Cyndi Horn Work Phone: [facility] Work Phone: Comment on above: Series: 02-07-2015 influenza, injectabl e, quadrivalent, preservative free Cyndi Horn Work Phone: [facility] Work Phone: 10-18-2013 pneumococcal polysaccharide vaccine, 23 valent Cyndi Horn Work Phone: [facility] Work Phone: Comment on above: Series: 12-16-2008 influenza virus vacc ine, whole virus Cyndi Horn Work Phone: [facility] Work Phone: 01-03-2008 influenza virus vacc ine, whole virus Cyndi Horn Work Phone: [facility] Work Phone: 12-16-2005 tetanus and diphther ia toxoids, adsorbed, preservative free, for adult use (5 Lf of tetanus toxoid and 2 Lf of diphtheria toxoid) Cyndi Horn Work Phone: [facility] Work Phone: Payers Date Payer Category Payer Medicare (Managed Care) [employer] ALIX HERNANDEZ MEDICARE [id number] 2017 Private Health Insurance 2016 Medicare [employer]ET[employer] MANAGED [place] AETNA MEDICARE PLAN (PPO) [id number] 2016-Present [id number] 2016 Medicare [id number] 2016 Medicare PPO [employer]ETNA MEDICARE P [place] (PPO) [id number] 2016 Private Health Insurance [id number] 1946 Unknown [id number] 2.840.1.776265.3.579.2. 1069 1946 Unknown [id number] 2.840.1.798602.3.579.2. 1946 Unknown [id number] 2.16840.1.111128.3.579.2. 1946 Unknown [id number] 2.16840.1.657689.3.579.2. 1946 Unknown [id number] 2.16840.1.951894.3.579.2. 1946 Unknown [id number] 2.16.840.1.761556.3.579.2. 71 1946 Unknown [id number] 2.16840.1.337270.3.579.2. 903 1946 Unknown [id number] 2.16.840.1.259816.3.579.2. 5 1946 Unknown [id number] 2.16.840.1.329801.3.579.2. 1245 1946 Unknown [id number] 2.16.840.1.507788.3.579.2. 1244 1946 Unknown [id number] 2.16.840.1.376508.3.579.2. 1244 1946 Unknown [id number] 2.16.840.1.685731.3.579.2. 1946 Unknown [id number] 2.16.840.1.280020.3.579.2. 3 1946 Unknown [id number] 2.840.1.122332.3.579.2. 1243 1946 Unknown [id number] 2.16840.1.587430.3.579.2. 1243 1946 Unknown [id number] 2.840.1.435932.3.579.2. 1243 1946 Unknown [id number] 2.16.840.1.373833.3.579.2. 1243 1946 Unknown [id number] 2.16840.1.909250.3.579.2. 1243 1946 Unknown [id number] 2.16.840.1.861328.3.579.2. 1243 1946 Unknown [id number] 2.16.840.1.687811.3.579.2. 1243 1946 Unknown [id number] 2.16.840.1.001541.3.579.2. 1244 1946 Unknown [id number] 2.16.840.1.096222.3.579.2. 1244 1946 Unknown [id number] 2.16.840.1.772378.3.579.2. 1244 1946 Unknown [id number] 2.16.840.1.847630.3.579.2. 1244 1946 Unknown [id number] 2.16.840.1.942490.3.579.2. 1244 1946 Unknown [id number] 2.16.840.1.859975.3.579.2. 1244 1946 Unknown [id number] 2.16.840.1.898295.3.579.2. 1242 1946 Unknown [id number] 2.16.840.1.035903.3.579.2. 1243 1946 Unknown [id number] 2.16.840.1.299977.3.579.2. 1242 1946 Unknown [id number] 2.16.840.1.880468.3.579.2. 1243 1946 Unknown [id number] 2.16.840.1.539583.3.579.2. 3 1946 Unknown [id number] 2.16.840.1.949942.3.579.2. 1243 1946 Unknown [id number] 2.16.840.1.267467.3.579.2. 1243 1946 Unknown [id number] 2.16.840.1.663367.3.579.2. 1243 1946 Unknown [id number] 2.16.840.1.731200.3.579.2. 1243 1946 Unknown [id number] 2.16.840.1.314800.3.579.2. 1243 1946 Unknown [id number] 2.16.840.1.286811.3.579.2. 1243 1946 Unknown [id number] 2.16.840.1.535438.3.579.2. 124 1946 Unknown [id number] 2.16.840.1.977958.3.579.2. 1242 1946 Unknown [id number] 2.16.840.1.952185.3.579.2. 124 1946 Unknown [id number] 2.16.840.1.541683.3.579.2. 124 1946 Unknown [id number] 2.16.840.1.270556.3.579.2. 1242 1946 Unknown [id number] 2.16.840.1.569892.3.579.2. 1242 1946 Unknown [id number] 2.840.1.129443.3.579.2. 1242 1946 Unknown [id number] 2.16.840.1.840599.3.579.2. 1242 1946 Unknown [id number] 2.16.840.1.675197.3.579.2. 1242 1946 Unknown [id number] 2.16840.1.020287.3.579.2. 1242 1946 Unknown [id number] 2.840.1.763917.3.579.2. 1242 1946 Unknown [id number] 2.16.840.1.311760.3.579.2. 124 1946 Unknown [id number] 2.16.840.1.496573.3.579.2. 1242 1946 Unknown [id number] 2.16.840.1.878211.3.579.2. 1242 1946 Unknown [id number] 2.16.840.1.603119.3.579.2. 1242 1946 Unknown [id number] 2.16.840.1.242851.3.579.2. 1243 1946 Unknown [id number] 2.16.840.1.330741.3.579.2. 1243 1946 Unknown [id number] 2.16.840.1.376950.3.579.2. 1243 1946 Unknown [id number] 2.16.840.1.699739.3.579.2. 1243 1946 Unknown [id number] 2.16.840.1.827784.3.579.2. 1243 1946 Unknown [id number] 2.16.840.1.334363.3.579.2. 1243 Medicare [id number] 2.16.840.1.749552.3.249.13 Unknown [employer] Social History Date Type Detail Facility Start: 05-20-2016 End: 01-03-2023 Tobacco smoking status TXIS Never smoker [facility] Work Phone: Start: 1945 Sex Assigned At Not on file [facility] Work Phone: Start: 02-01-2022 End: 12-29-2024 No illicit drug use No illicit drug use [facility] Work Phone: Start: 06-06-2021 End: 06-06-2024 Exposure to SARS-CoV-2 (event) Not sure [facility] Start: 02-01-2022 End: 09-19-2024 Alcohol intake Current drinker of alcohol (finding) [facility] Start: 06-01-2022 Tobacco smoking status NHIS Ex-smoker [facility] History of tobacco use Current smoker [facility] Work Phone: History of tobacco use Cigarette Smoker [facility] Work Phone: Start: 06-01-2022 End: 11-08-2022 Tobacco use and exposure Smokeless tobacco non-user [facility] Work Phone: Start: 06-01-2022 End: 12-29-2024 Gender identity Not on file [facility] Work Phone: Start: 01-21-2022 Adult Depression Screening Assessment 0 [facility] Start: 11-08-2022 Alcohol Comment 2 glassses of wine a week per pt 11/08/2022 [facility] Start: 1945 [facility] Start: 09-19-2024 Gender identity Identifies as female gender (finding) [facility] Work Phone: Start: 09-19-2024 Sexual orientation Heterosexual (fin ding) [facility] Work Phone: Start: 09-21-2024 End: 12-17-2024 Alcoholic beverage intake Ex-drinker (finding) [facility] Work Phone: Within the last year , have you been afraid of your partner or ex-partner? No [facility] Work Phone: How often to you hav e a drink containing alcohol? Never [facility] Work Phone: (I/We) worried whether (my/our) food would run out before (I/we) got money to buy more. Never true [facility] Work Phone: Start: 01-21-2022 Sex Female (finding) [facility] NEGATED: Highlighted rowStart: NINF History of tobacco use Passive smoker [facility] Medical Equipment Procedure Code Equipment Code Equipment Origin al Text Equipment Identifier Dates Mesh Restorelle Y Smartmesh 1.8mm 24x4cm Surgical Large Macropore Tailore - [id number] Start: 11-16-2022 Functional Status Date Assessment Result Facility 12-30-2024 Functional status 102/70 [facility] 12-30-2024 Vital signs 99 12/30/2024 2: 15 PM Eliana Reynolds MA [facility] Work Phone: 12-30-2024 [facility] Work Phone: 12-16-2024 Functional status /71 025 11:45 AM EDT Shanta Tierney RN [facility] Work Phone: 12-16-2024 Vital signs 101 12/16/2024 1 1:45 AM EDT Shanta Tierney RN [facility] Work Phone: 12-16-2024 [place] - suicide s everity rating scale screener - recent [C-SSRS] [facility] Work Phone: 12-16-2024 Functional status [facility] 12-16-2024 [facility] Work Phone: 11-18-2024 Functional status 100/68 025 2:56 PM EDT Xiomy Carias CMA 100 [facility] Work Phone: 11-18-2024 Vital signs 106 11/18/2024 2 :56 PM EDT Xiomy Carias CMA [facility] Work Phone: 11-18-2024 Patient [facility] ionnaire 2 item (PHQ-2) [Reported] [facility] Work Phone: 11-18-2024 [place] - suicide s everity rating scale screener - recent [C-SSRS] [facility] Work Phone: 11-14-2024 [facility] Work Phone: 11-14-2024 Total score [AUDIT-C] 0 11/15/19 25 4:53 PM EDT Rachel Curran RN [facility] Work Phone: 11-14-2024 Patient [facility] ionnaire 2 item (PHQ-2) [Reported] [facility] Work Phone: 11-14-2024 Functional status [facility] Work Phone: 11-14-2024 Functional status 1 [facility] Work Phone: 11-14-2024 [facility] Work Phone: 11-14-2024 [place] - suicide s everity rating scale screener - recent [C-SSRS] [facility] Work Phone: 11-02-2024 [place] - suicide s everity rating scale screener - recent [C-SSRS] [facility] Work Phone: 11-02-2024 [facility]24 [place] - suicide s everity rating scale screener - recent [C-SSRS] [facility] Work Phone: 10-15-2024 Functional status [facility] 10-15-2024 [facility] Work Phone: 09-21-2024 Total score [AUDIT-C] 0 09/22/19 10:43 PM EDT Lin Malone RN [facility] Work Phone: 09-21-2024 Patient [facility] ionnaire 2 item (PHQ-2) [Reported] [facility] Work Phone: 09-21-2024 [place] - suicide s everity rating scale screener - recent [C-SSRS] [facility] Work Phone: 09-10-2024 [facility] ionnaire 2 item (PHQ-2) [Reported] [facility] Work Phone: [facility] Work [facility] Work Phone: Mental Status Date Assessment Result Facility 10-15-2024 Cognitive function finding Negat arnold 10/15/2024 2:17 PM EDT Nereida Adorno RN [facility] Work Phone: Clinical Notes 01-27-2022 to 12-30-2024 Camryn Jamil RN - 12/30/2024 2:00 PM Mely Cunha MD - 12/30/2024 2:00 PM ESTPatient InstructionsAssessment & Plan Note - Savanna Calderon MD - 12/17/2024 1:15 PM EDTPatient Instructions Note Date & Type Note Facility 12-30-2024 History of Present illness Narrative Pt scored a 1/10 on her distress survey R/T pain and worry 0/10 on her SDOH survey Labs drawn at OV and hand delivered to lab Rtc in 2 weeks 01/[address] Cunha Reviewed AVS with patient- patient verbalizes understanding Patient ID:Uzma Duran is a 79 y.o. 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 Duran is a 79-year-old white female who has had recent unexplained weight loss and had been found to have a pulmonary embolus of unknown time of onset History of the Present Illness 02/04/2020. She has been a long-term patient of Dr. Cyndi Horn. Her weight was 138 pounds. 06/02/2021. Acquired mallet finger due to injury for which she decided not to undergo surgery because it did not interfere with her function. 03/10/2022. Weight was 144 with some peripheral edema 11/16/2022. Robotic laparoscopic colpopexy laparoscopic sacral colpopexy, posterior colporrhaphy, perineorrhaphy with cystoscopy and repair of rectocele. 12/19/2022. Treatment of sleep apnea with oral mandibular advancement device overseen by her dentist 06/01/2023. Bone mineral density showed a possible compression fracture T6 and osteoporosis. She was referred to physical therapy and that is helpful. She was taking calcium and vitamin D and getting regular exercise and decided not to be treated further at that time. 02/28/2023. Thyroid ultrasound showed heterogeneous thyroid echotexture and no significant interval change in the size or morphology of her 2 right thyroid lobe TI-RADS 4 nodules. She had multiple other nodules also. 11/16/2023. Cardiac calcium score was 489, highest in her LAD. It was said that the annual risk with a score was 2.4%. Punctate calcified granuloma was seen in the left lower lobe. Ascending aorta measured 3.5. Heart was mildly enlarged there is no pericardial effusion or gross evidence of mediastinal or hilar adenopathy. She was referred to cardiology for an opinion. 12/20/2023. Cardiology evaluation by Virginia Velázquez DNP who said that the patient denied any chest pain pressure discomfort shortness of breath palpitations or any other cardiac symptoms and walked 8-10,000 steps a day and is actively working on lifestyle modification losing 15 pounds. Her atorvastatin had been increased from 20 to 40 mg a day and she was normotensive. She was started on aspirin 81 mg a day and no further testing was warranted because she was asymptomatic. 02/09/2024. Follow-up with Dr. Horn. At that time the patient wanted to cut her atorvastatin back to 20. Blood pressure was 126/78. At that time her weight was at 125. 09/08/2024. Urgent care visit for leg cramps which caused her not to be able to sleep. She said that the cramps were felt in her thigh and left hip right shoulder with shooting pains concerning for sciatica. She was taking [id number] NSAIDs for pain relief. She was encouraged to take Motrin and drink plenty of fluids. On physical examination she did have positive straight leg raising test. There was no swelling, tenderness or signs of injury. Weight was 129 pounds. 09/10/2024. Follow-up with Dr. Horn. The patient was compliant with an exercise regimen that helped. She was concerned because she was leaving for vacation with 2 trips planned. She had right posterior shoulder muscle tightness with spasm. She was given a prescription for prednisone and a tapering schedule as well as Robaxin. 09/19/2024. Saw Dr. Horn in follow-up for her sciatica. She said that the prednisone had helped. She had shooting pains at night. She had no new symptoms of loss of bowel or bladder control, no numbness or tingling. She did have insomnia and facial flushing. She said that Robaxin did not help. She just had a 9-hour car trip. Weight was 130. 09/21/2024 through 09/24/2024. She was admitted to the hospital through the emergency room at [facility] for low back pain radiating into the left lower leg for 2 weeks. She had been taking Tylenol with minimal relief. He had also recently taken gabapentin which had been prescribed for her but caused her to be weaker. She said that she is having trouble sleeping at night and that she had fallen a few times when her leg gave out. On physical examination she had 4 out of 5 strength in the left leg and 5 out of 5 strength in the right leg. Laboratory data showed normal blood count except for elevated white blood cell count of 12,000 possibly related to recent steroid therapy. Sugar was 109 but her sodium was markedly low at 118 with a potassium of 3.3. BUN and creatinine were normal liver function test were normal. Urine was essentially normal on urinalysis, magnesium and prothrombin time were normal. She was negative for COVID. Troponins were normal. CT scan of the head showed no evidence for acute disease and calvarium was unremarkable. CT scan lumbar spine showed degenerative change most notable at L4-5 with grade 1 degenerative anterolisthesis. If there was concern for nerve root impingement or other radiculopathy consider an MRI. There was vascular calcification and distended urinary bladder but no evidence of acute fracture. Chest x-ray was negative for acute process. It was not felt that an emergent MRI was indicated. It was noted that she had no history of hyponatremia. On admission she weighed 126 pounds. 09/23/2024. She remained on fluid restriction. TSH was normal. Sodium came up to 129 with a chloride of 101. She had been given Dilaudid IV for severe pain and oxycodone for moderate pain. 09/24/2024. 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 She was discharged on sodium chloride tablets 2 g twice a day with Lasix twice a day to follow-up to see Dr. Ram in his office. She was to limit her fluid intake to 40 to 60 ounces per day and eat a high-protein diet. She was prescribed Ultram for pain and told to take Mobic once a day 15 mg with breakfast. She was to continue her atorvastatin, fish oil, gabapentin 300 mg p.o. nightly, probiotics, Robaxin, vitamin B12 and zinc. She was off prednisone. She was continued on IV saline and was monitored closely. Home lisinopril was held. Dr. Gerson Ram was consulted. He documented that she drank water on a daily basis but it did not seem like an excessive amount. The next day she weighed 130 pounds on IV fluids which were then discontinued. Laboratory test included serum and urine osmolality and urine sodium. She was placed on a fluid restriction and TSH was ordered. 09/22/2024. Seen by Dr. Steward the hospitalist. He noted her blood pressure was 84/49 with a pulse rate of 83. Sugar was 116 sodium came up to 121 with a chloride of 94 BUN of 12 and creatinine 0.56. Her calcium was 7.8 and albumin was 3.2 with a total protein of 5.6. White count was 12.1 hemoglobin 11.8 hematocrit 33.8 with platelet count of 240,000. 09/24/2024. Discharge from the hospital on Lasix 20 mg twice a day, sodium chloride tablets 2 tablets twice a day, tramadol meloxicam 15 mg every morning atorvastatin, fish oil, gabapentin 300 mg p.o. nightly, Robaxin vitamin B12 and zinc. 10/01/2024. Follow-up with Dr. Cyndi Horn who prescribed MRI and ordered EMG and nerve conduction study. MRI showed lumbar spondylosis with moderate foraminal narrowing and lumbar canal stenosis at L4/L5. She was also referred to pain management and restarted on her prednisone. She noted that on physical examination her ankles were puffy from IV fluids and salt pills. 10/02/2024. Saw Dr. Tarik Horn from pain management who reviewed her history of her leg giving out and several falls and her improvement with prednisone. She came in in a wheelchair saying that her pain was 8 out of 10. She said that she had had pain for over a year but the radicular component started over the past 4 weeks. His assessment was lumbar radiculopathy with spondylosis and myofascial pain. She was scheduled for a caudal epidural steroid injection under fluoroscopy and a follow-up a month later. He started Cymbalta 30 mg once a day. 10/03/2024. Followed up with Dr. Gerson Ram. She had had chemistries on 09 30 which showed a sodium of 130 and a chloride of 94 with a BUN of 31 and a creatinine of 0.8. 10/14/2024. Sodium was 135 potassium was 2.9 chloride was 97 BUN was 23 creatinine 0.9. 10/15/2024. Epidural steroid injection by Dr. Tarik Horn. 10/17/2024. Followed up with Dr. Gerson Ram. Blood pressure was 118/68. We decreased her Lasix to 20 mg twice a day and if the swelling got worse she would take 40 mg. He told her to come back in 3 months. 10/21/2024. Nerve conduction and EMG by Dr. 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 There was no evidence of right cervical radiculopathy or brachial plexopathy. She was encouraged by Dr. Horn to use a right wrist splint and she referred her to orthopedic surgery. 10/29/2024. Followed up with Dr. Horn. The patient complained of not sleeping well. She had improvement after injection and her pain was 3 out of 10 at the worst. She stopped Cymbalta as she had no pain after her injection and it made her nauseated. She was taking Tylenol and Tylenol PM and getting physical therapy. She had to put an ice pack on her neck because of nausea and she had lost weight. She also complained of numbness and tingling in her left hand and she wanted this to be tested as well. She was encouraged to use braces bilaterally at night. She says she was not taking potassium because it made her nauseated but she was told to take it with antinausea medicine. Spouse asked if she needed a GI evaluation which Dr. Horn did not feel was necessary at that time. She said that she thought her symptoms were even a large part medication induced and or not taking medication as directed. Weight was 117 pounds. 11/01/2024. Saw Dr. Dr. Calderon for her right carpal tunnel syndrome who agreed with splints and the addition of Voltaren gel as well as nonsteroidal anti-inflammatory drugs and avoiding activity that aggravated the symptoms. She told him that she had fallen 2 months prior and landed on her outstretched hands at which time she began having median nerve symptoms with numbness and tingling. X-rays of the right hand showed mild osteoarthritis of the intra phalangeal joints and first carpometacarpal joints and the chronically ununited mildly displaced avulsion fracture of an osteophyte from the dorsal base of the right third distal phalanx. 11/02/2024. Emergency department visit for weakness that was generalized and weak worst in her left lower extremity along with left hip pain she said that she fell again the before that visit landing on her left side. She was concerned that her sodium might be low again. She denied striking her head. Physical examination did show some mild weakness of her left lower extremity. Sodium was 130 chloride 95 potassium was 3.8 BUN was 17 creatinine 0.63. CBC showed white count of 13,000 hemoglobin of 13.2 hematocrit 38.9 with a platelet count of 349,000 with 83% polys, 7 lymphs, 6 monos. She tested negative for COVID and influenza as well as RSV. CT scan of the head showed no evidence of acute process and chest x-ray did not show any acute process. Left hip x-ray showed mild osteoarthritis of the bilateral hip joints worse on the right than the left with no evidence for fracture. She was discharged home to primary care. 11/05/2024. Followed up with Cyndi Horn. She had tried Remeron to help her sleep at 7.5 and then 15 mg. It was noted that she had untreated sleep apnea because of intolerance of the machine and discontinuation of using her dental appliance. She was more agreeable to treatment again. She said that she was not taking her potassium pill because it was a large pill and she wanted to try the liquid potassium. She also had lack of appetite and weight loss which Dr. Horn felt was illness and medication related. She noted the patient had lost 10 pounds in 6 months. She restarted her losartan at 25 mg daily a blood pressure of 146/82. She had restarted her Cymbalta because of worsening radiculopathy. She had mood problems. She said that she was not used to being sick Dr. Horn recommended high calorie nutrient dense foods. She ordered a CAT scan of the chest abdomen and pelvis. She was also referred to gastroenterology, spine surgery and was told to use her CPAP. 11/08/2024. Followed up with Dr. Rachael Ram. The patient told her that she had decreased appetite and was forcing herself to eat and using some protein drinks. She was using a walker. She increased her salt tablets for the next week and get a BMP and continue her Lasix. 11/12/2024. CAT scan of the chest abdomen and pelvis showed partially occlusive filling defects in the right lower lobe segmental and subsegmental pulmonary arteries and distal left main pulmonary artery and segmental left lower lobe pulmonary arteries. Heart size was normal with moderate coronary artery calcifications and no significant pericardial effusion. Airways are clear. She had a 0.6 cm linear right lower lobe pulmonary nodule and a 0.3 cm right lower lobe pulmonary nodule with mild atelectasis in the lingula and subpleural reticulations. Within the abdomen the liver bile ducts gallbladder spleen adrenals were all normal. There was slightly prominent appearance of the main pancreatic duct and the kidneys were mildly lobulated in appearance without evidence of hydroureteronephrosis or nephrolithiasis. Bladder was unremarkable. She is status post hysterectomy. Severe atherosclerotic calcifications were seen in the abdominal aorta and its branches but the IVC was unremarkable. There were a few prominent upper abdominal lymph nodes that were not enlarged by CAT scan criteria. Stomach was decompressed and there were no acute bony abnormality seen. There was no cause for the patient's weight loss seen on that examination. There was mild circumferential wall thickening of the esophagus that was nonspecific. Correlation was recommended clinically. 11/14/2024. Dr. Horn instructed patient to go to the emergency room where she was evaluated by Dr. Alarcon who found mild left calf discomfort without swelling on physical examination. The PE team was informed and recommended that she have a CT for pulmonary embolus protocol study, echo, venous Dopplers, lactate, BNP, troponins and to continue her heparin drip and admit the patient to inpatient telemetry. Cancer screening per referring provider was recommended. Left lower extremity venous dopplers showed acute occlusive deep vein thrombosis in the posterior tibial peroneal and soleal veins with acute nonocclusive deep vein thrombosis in the popliteal vein. There is also a popliteal cyst on the right. 11/14/2024. CTA for pulmonary emboli showed normal cardiac size and no evidence of pericardial effusion. There was some right heart strain as evidenced by the RV/LV ratio of 1.2 to. Pulmonary emboli were seen described as mild burden. CT scan of the head showed no acute changes. Echocardiogram showed an ejection fraction of 65 to 70%. There was low normal right ventricular systolic function. Right ventricular systolic pressure was normal at 28. Weight at that time was 119 pounds. Serum sodium was 134. Chloride was 99. BUN and creatinine were 19 and 0.63. Albumin was 3.2. D-dimer was 1761. 11/15/2024. Patient was doing well. Her sodium was 132. She was encouraged to follow-up with hematology oncology at discharge for workup for occult malignancy. She was discharged on 11/16/2024 on Eliquis. She was also treated with Lasix twice a day, sodium chloride tablets 2 tablets twice a day, Tylenol, Lipitor, Voltaren gel, Cymbalta 30 mg daily, fish oil, probiotic, losartan 25 mg, mirtazapine 15 mg, Zofran as needed, potassium chloride and B12. 11/18/2024. Followed up with Dr. Cyndi Horn who said that she would consult hematology regarding how long to continue anticoagulation. She noted that neurosurgery and gastrointestinal referrals were pending. Daughter said that she was going to try to get her into a sleep specialist for her insomnia. Family requested neurology referral for concerns of MS. 11/18/2024. Follow-up with pain management. Patient reported falling twice a day before her visit she still had a lot of weakness in her legs and pain in the left leg down to her left lower leg. She came in a wheelchair. She was still trying to do physical therapy exercises. She was taking her Cymbalta 30 mg. She noted loss of appetite and weight loss. Naveed Gustafson of pain medicine suggested that the Cymbalta be discontinued. They discussed gabapentin but she did not like the side effects of that medication either. They recommended low-dose steroids while she was on the Eliquis which prevented her from getting her injections. They discussed trialing pregabalin 25 mg twice a day. 12/16/2024. Returned to see Dr. Horn in follow-up. Patient said that she was able to use her CPAP and was sleeping well. She continued her Lasix for her hyponatremia. She said that her left leg was still weak with neuropathy but the pain was better. Weakness was not improving and she had numbness and tingling in her toes left greater than right. She said that her dysphagia resolved and she did not start Pepcid. Her hypertension was controlled. Blood pressure the day was 128/78 and her weight was 118 pounds. 12/16/2024. Follow-up with pain management. At that time she had 2 out of 10 pain with most of this pain being in her thighs which she attributed to exercise. Patient noted that previously they had given her caudal epidural steroid injection which provided significant relief for about 2 weeks before the pain returned. The patient complained of intermittent blurred vision. The patient had been taking 1 Lyrica at dinnertime and 1 at bedtime and states she was told to spread the drug doses out more 1 in the morning and 1 in the evening. She has an appointment to see a neurosurgeon in December. 12/17/2024. She saw Dr. Dr. Calderon in follow-up of her carpal tunnel syndrome who recommended that she continue using her splints. Interval Note 12/30/2024. She is here today with her . We reviewed the extensive history detailed above, recent interventions and interactions. As I see if there are 2 major questions which include the underlying cause of her unintentional 10 pound weight loss in the last 6 months and the underlying cause of her pulmonary embolus and deep vein thrombosis and the length of time for anticoagulation. We will see if there is any relationship between these 2 problems such as a myeloma. She said that she had been stable at 136 pounds for about 2 years and then lost weight intentionally to about 126 pounds. Recently she has dropped down to as low as 114 pounds. Her weight today is 121 pounds. She tells me that she has had some trouble with swallowing which she feels is getting better. She especially has problems with big pills. She has been referred to gastroenterology. It is noted that she has had colon polyps in the past. She has had pain in her left sciatic joint area and has fallen at least 6-7 times. She says that her left leg just gives out and she falls. She says that she has not broken anything and prior to the onset of her sciatica she had no significant injury. She says that she also has right sided leg weakness 2. She has undergone various interventions and she is still plagued by weakness and falls. She feels that she might be getting little bit better with the caudal injections given by pain management. She said that she had physical therapy for 2 weeks and was able to use a cane but then fell again and was reinjured to the point where she was using her walker again. She has an appointment to see Dr. Jraa and neurosurgeon. She does complain of numbness and tingling in her left foot. The pulmonary embolus and deep vein thrombosis that she had was after she had been plagued with this left leg weakness and pain syndrome with multiple falls. She had also had long car rides. Her says that they never stop for 3 to 4 hours at a time to walk around. I told them that that is not in their best interest and that they should stop every hour and while sedentary may need to do heel pumps. Comorbidities Colon Polyps with colonoscopy by Dr. Davies in 2017 Trigger finger Osteoarthritis Hypertension Obstructive sleep apnea using oral appliance Euthyroid multinodular goiter, seen by Dr. Davenport osteoporosis Cystocele and rectocele status post hysterectomy Impaired glucose tolerance Hyperlipidemia Frequent severe leg cramps Monitoring Parameters Review of Systems - Oncology Review of Systems Constitutional: Positive for appetite change and fatigue. Negative for unexpected weight change. HENT: Positive for trouble swallowing (occasionally, more when she went into the hospital). Negative for dental problem, mouth sores and sore throat. Eyes: Negative for visual disturbance. Respiratory: Positive for shortness of breath. Negative for cough. Cardiovascular: Negative for leg swelling. Gastrointestinal: Negative for abdominal pain, constipation, diarrhea, nausea and vomiting. Endocrine: Negative for polyuria. Genitourinary: Negative for dysuria, frequency and urgency. Musculoskeletal: Positive for arthralgias and myalgias. Skin: Positive for pallor. Negative for rash. Neurological: Positive for weakness and numbness. Negative for tremors, light-headedness and headaches. Hematological: Negative for adenopathy. Bruises/bleeds easily. Psychiatric/Behavioral: Negative for self-injury, sleep disturbance and suicidal ideas. The patient is not nervous/anxious. Past Medical History Medical History[1] Surgical History Surgical History[2] Social History Social History[3] Family History family history includes Asthma in her mother; Diabetes in her mother; Hypertension in her father; Lung cancer in her mother; Osteoporosis in her mother; Prostate cancer in her father; Psychological disorder in her father; cardiac disorder in her father. Prostate cancer in her brother. She had to 1 son and 1 daughter. Current Medications Current Outpatient Medications Medication Instructions apixaban (ELIQUIS) 5 mg, oral, 2 times daily atorvastatin (LIPITOR) 20 mg, oral, Daily cyanocobalamin, vitamin B-12, (VITAMIN B-12 ORAL) 1 tablet, Daily docosahexaenoic acid/epa (FISH OIL ORAL) Take 1 capsule by mouth early in the morning.. furosemide (LASIX) 40 mg, oral, 2 times daily (morning and late afternoon) L. acidophilus/Bifid. animalis 32 billion cell capsule 1 capsule, Daily losartan (COZAAR) 25 mg, oral, Daily mirtazapine (REMERON) 15 mg, oral, Nightly ondansetron ODT (ZOFRAN-ODT) 8 mg, oral, Every 8 hours PRN potassium chloride (Klor-Con) 20 mEq packet 20 mEq, oral, Daily pregabalin (LYRICA) 50 mg, oral, 2 times daily sodium chloride 2 g, oral, 2 times daily (morning and late afternoon) Scheduled Medications[4] OARRS Review I have personally reviewed the OARRS report for Uzma Duran. I have considered the risks of abuse, dependence, addiction and diversion evaluation of this record shows that she has been on gabapentin tramadol and pregabalin during this year from primary care, emergency room and pain management. Vital Signs BP 102/70 Pulse 99 Temp 36.1 C (97 F) (Skin) Resp 18 Ht (S) 1.492 m (4' 10.75) Wt 55.2 kg (121 lb 9.6 oz) SpO2 97% BMI 24.77 kg/m Physical Exam Vitals and nursing note reviewed. Exam conducted with a tableau report developer present. Constitutional: General: She is not in acute distress. Appearance: Normal appearance. She is not ill-appearing or toxic-appearing. Comments: She is a well-developed well-nourished elderly white female who does not appear to be acutely or chronically ill. She is well-dressed, pleasant and appropriate. She is here today with her . HENT: Head: Normocephalic and atraumatic. Nose: Nose normal. Mouth/Throat: Mouth: Mucous membranes are moist. Pharynx: Oropharynx is clear. No oropharyngeal exudate or posterior oropharyngeal erythema. Eyes: General: No scleral icterus. Extraocular Movements: Extraocular movements intact. Conjunctiva/sclera: Conjunctivae normal. Pupils: Pupils are equal, round, and reactive to light. Neck: Comments: There is no significant lymphadenopathy that I can feel around the head neck region, supraclavicular axillary or inguinal regions bilaterally. Cardiovascular: Rate and Rhythm: Normal rate and regular rhythm. Heart sounds: Murmur (flow murmur) heard. Pulmonary: Effort: Pulmonary effort is normal. No respiratory distress. Breath sounds: No wheezing, rhonchi or rales. Abdominal: General: There is no distension. Palpations: Abdomen is soft. There is no mass. Tenderness: There is no abdominal tenderness. There is no guarding or rebound. Musculoskeletal: General: Normal range of motion. Cervical back: Normal range of motion and neck supple. No rigidity or tenderness. Right lower leg: Edema (less up to above her ankles) present. Left lower leg: Edema (1/2 way to knees) present. Lymphadenopathy: Cervical: No cervical adenopathy. Skin: General: Skin is warm and dry. Coloration: Skin is pale. Skin is not jaundiced. Findings: No lesion or rash. Neurological: Mental Status: She is alert and oriented to person, place, and time. Mental status is at baseline. Cranial Nerves: Cranial nerve deficit present. Sensory: No sensory deficit. Motor: No weakness. Gait: Gait normal. Comments: Somewhat hard of hearing Psychiatric: Mood and Affect: Mood normal. Behavior: Behavior normal. Thought Content: Thought content normal. Judgment: Judgment normal. Comments: Worried about weight loss, recent DVT with PE, weakness and falls Current Laboratory Data Recent Results (from the past week) Immunoglobulins (IgG, IgA, IgM) Collection Time: 12/30/24 3:32 PM Result Value Ref Range IgG 930 700 - 1,600 mg/dL IgA 265 70 - 400 mg/dL IgM 153 40 - 230 mg/dL [place]/Lambda Free Light Chain, Serum Collection Time: 12/30/24 3:32 PM Result Value Ref Range Ig [place] Free Light Chain 3.26 (H) 0.33 - 1.94 mg/dL Ig Lambda Free Light Chain 4.91 (H) 0.57 - 2.63 mg/dL [place]/Lambda Ratio 0.66 0.26 - 1.65 Protein, Total Collection Time: 12/30/24 3:32 PM Result Value Ref Range Total Protein 6.1 (L) 6.4 - 8.2 g/dL Serum Protein Electrophoresis + Immunofixation Collection Time: 12/30/24 3:32 PM Result Value Ref Range Albumin 2.8 (L) 3.4 - 5.0 g/dL Alpha 1 Globulin 0.6 0.2 - 0.6 g/dL Alpha 2 Globulin 0.9 0.4 - 1.1 g/dL Beta Globulin 0.9 0.5 - 1.2 g/dL Gamma 0.9 0.5 - 1.4 g/dL Protein Electrophoresis Comment Hypoalbuminemia. Immunofixation Comment No monoclonal protein detected by immunofixation. Path Review - Serum Protein Electrophoresis Reviewed and approved by BALTAZAR STANLEY on 01/02/25 at 10:20 AM. Path Review - Serum Immunofixation Reviewed and approved by BALTAZAR STANLEY on 01/02/25 at 10:20 AM. Recent Imaging Imaging No results found. See narrative for imaging Cardiology, Vascular, and Other Imaging No other imaging results found for the past 7 days Pathology DVT with pulmonary embolus Unintended weight loss Performance Status: Symptomatic; fully ambulatory Assessment/Plan 1. Deep vein thrombosis with pulmonary embolus. This appears to me to have been a precipitated episode probably brought on by her ongoing pain in her leg with decreased activity and recent multiple long car rides during which her says that they seldom take a break for 3 to 4 hours at a time. She has had significant pain and weakness in her leg for several weeks to months resulting in that she is not as physically active as she had been. She is anticoagulated at this time and we cannot check several of the hypercoagulability markers but we can check for factor V Leiden and prothrombin gene mutation, the results which are still pending. I think that she should be anticoagulated for a total of 6 months because she had a substantial pulmonary embolus. After that time it would be reasonable to stop her Eliquis, check for the other known risk factors for hypercoagulability and if any of them are present make the decision that she should or should not stay on anticoagulation for a longer period of time until the risks outweigh the benefits. With her unintended weight loss of about 10 pounds in the past 6 months, the specter of an undiagnosed malignancy arises. There is no apparent malignancy found so far. She has had multiple GI complaints and has been referred to gastroenterology where I expect that she will undergo endoscopy for her dysphagia and also to rule out colorectal cancer, having had colon polyps in the past on colonoscopy. I have also done an evaluation for myeloma with serum protein electrophoresis with immunofixation quantitative immunoglobulins, kappa lambda light chain ratio, all of which so far appear to be reactive. Myeloma of course can cause anemia which she has. I see no evidence of lytic or blastic bone disease. Her imaging studies suggest that this is a degenerative process in her spine that is causing her pain and weakness in her legs left greater than right. 2. Unintentional weight loss. Mrs. Duran has had intentional weight loss and then with her leg pain weakness and multiple falls, has lost another 10 pounds. I do not see evidence for an undiagnosed malignancy at this point but the investigation is ongoing especially with gastroenterology. I agree with Dr. Horn that medication and emotional causes are part of the reason for her weight loss. 3. 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 This is being managed by Dr. Ram. 4. Anxiety and depression. 5. Multiple comorbidities. These include but are not limited to: Colon Polyps with colonoscopy by Dr. Davies in 2017 Trigger finger Osteoarthritis Hypertension Obstructive sleep apnea using oral appliance Euthyroid multinodular goiter, seen by Dr. Davenport osteoporosis Cystocele and rectocele status post hysterectomy Impaired glucose tolerance Hyperlipidemia Frequent severe leg cramps We have asked her to come back and see us in 2 weeks to review our findings and recommendations. She knows that she can call if she has any change in her status, questions or concerns. 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 Discussed causes of her blood clot. Reviewed her labs and will plan to check for causes of her clots as well as other labs. Orders added. Return to see MD in 2 weeks to review. documented in this encounter [facility] Work Phone: 12-17-2024 Evaluation + Plan note Associated Problem(s): Right carpal tunnel syndrome Right wrist mild carpal tunnel syndrome In the interval since her last visit she had a PE and is on Eliquis Plan: Given that her symptoms are mild we can continue nonoperative treatment. Cock up wrist splints use as needed. Avoid activities that aggravate. Voltaren gel use as directed. Follow-up in 3 to 4 months for recheck. For symptoms worsen she can come back sooner for reevaluation. [facility] Work Phone: 12-17-2024 Miscellaneous Notes Associated Problem(s): Right carpal tunnel syndrome Right wrist mild carpal tunnel syndrome In the interval since her last visit she had a PE and is on Eliquis Plan: Given that her symptoms are mild we can continue nonoperative treatment. Cock up wrist splints use as needed. Avoid activities that aggravate. Voltaren gel use as directed. Follow-up in 3 to 4 months for recheck. For symptoms worsen she can come back sooner for reevaluation. documented in this encounter [facility] Work Phone: 12-17-2024 History of Present illness Narrative Assessment/Plan Encounter Diagnoses: Right carpal tunnel syndrome No problem-specific Assessment & Plan notes found for this encounter. Right carpal tunnel syndrome Right wrist mild carpal tunnel syndrome In the interval since her last visit she had a PE and is on Eliquis Plan: Given that her symptoms are mild we can continue nonoperative treatment. Cock up wrist splints use as needed. Avoid activities that aggravate. Voltaren gel use as directed. Follow-up in 3 to 4 months for recheck. For symptoms worsen she can come back sooner for reevaluation. Subjective Patient ID: Uzma Duran is a 78 y.o. female. Chief Complaint: Follow-up of the Right Wrist (X-RAYS 11-01-24/10-21-24 EMG/Has braces wearing them at night ) Last Surgery: No surgery found Last Surgery Date: No surgery found HPI 78-year-old who comes in today for evaluation of her mild carpal tunnel syndrome. She states that she is tolerating the symptoms quite well. They are somewhat better certainly have not worsened since her last visit. She started Eliquis twice daily because of a PE since the last visit. She has blood clots in her legs that she is hoping will dissolve. OBJECTIVE: ORTHO EXAM Right wrist/hand: No obvious swelling or masses Thenar eminence muscle mass: Minimal No atrophy noted of hypothenar eminence Equivocal Tinel's at carpal tunnel + Median nerve compression test- Eric's Test + Phalen's test Decreased sensation to light touch and 2 point discrimination in median nerve distribution this seems improved Motor exam within normal limits Good capillary refill IMAGE RESULTS: Point of Care Ultrasound These images are not reportable by radiology and will not be interpreted by Radiologists. ULTRASOUND Wrist Ultrasound DIAGNOSTIC ULTRASOUND REPORT FINAL: Right HAND AND WRIST [employer] Set Up Operator: Savanna Calderon MD Procedure: Ultrasound, extremity, nonvascular, real-time, COMPLETE, anatomic specific. Indication: Wrist Pain Technique: B-Mode Ultrasound Examination performed using 8-13 MHz linear transducer with [employer] Software STUDY TYPE: 1. ULTRASOUND EXTREMITY 2. REAL TIME WITH IMAGE DOCUMENTATION 3. NON-VASCULAR 4. COMPLETE STUDY Site: LEFT HAND AND WRIST Live ultrasound was performed with the patient's HAND AND WRIST and PERMANENTLY documented. COMPLETE and FINAL ULTRASOUND REPORT of the patient's HAND AND WRIST. . I personally performed the ultrasound and reviewed the findings. These show: Live ultrasound was performed of the patient's HAND AND WRIST that shows intact Extensor digitorum communis, Extensor digiti minimi, Extensor indicis proprius, Extensor Pollicus Longus, Flexor Pollicus Longus, Flexor digitorum profundus, Flexor digitorum superficialis tendon with the THENAR and HYPOTHENAR muscle fibers showing normal striations. NO FLUID NOTED WITHIN THE CARPAL TUNNEL, THE MEDIAN NERVE SHOWS NORMAL PATTERN OF ECHOGENICITY. The median n. remains swollen. The tendons appear normal in appearance and size as they pass the styloid process. No fracture is appreciated. Nonsterile gloves were used for this procedure gauze pads were then used to clean the area after the procedure was compete. The patient tolerated the procedure well. Mild thumb CMC joint arthritis. Med. nerve is swollen with an echogenic halo. Procedures Orders Placed This Encounter Point of Care Ultrasound The contents of this note were dictated into the [email or web address] software. Sometimes errors in wording, punctuation, or spelling are seen. documented in this encounter [facility] Work Phone: 12-16-2024 History of Present illness Narrative Subjective Patient ID: Uzma Duran is a 78 y.o. female who presents for Follow-up (Patient here in clinic for follow up visit after initiating Lyrica. Patient and patient's daughter state that they think this therapy has been helpful with her nerve pain. Patient states she does have intermittent low back pain, and complains of numbness/tingling in feet and toes. Left being more severe than the right. She uses lidocaine cream on her back for pain relief when needed. Patient does report that she has been taking her Lyrica at dinner time, then again at bedtime.). She is wondering if she should change the way she is taking this. Today she rates her pain 2/10, most of this being in her thighs which she thinks is just soreness from exercise. ELZA 40% Shanta Tierney RN 12/16/24 11:44 AM The patient is a 78-year-old female who presents today for 1 month follow-up appointment for medication management. She currently rates her pain a 2/10 across her lower back and in bilateral thighs with weakness primarily in the left thigh and tingling in bilateral toes, left worse than the right. We previously tried a caudal RADHA for her which provided significant relief for about 2 weeks before the pain returned back to baseline. At her last appointment we had started her on pregabalin 25 mg twice a day. She is unsure if the intermittent blurred vision she is having is related to the medication or not, she is unsure if it was going on before or after she started the Lyrica. She takes 1 Lyrica at dinnertime and 1 at bedtime. We discussed spreading these out a little more and taking 1 in the morning and 1 at night. She is set to see a neurosurgeon at the beginning of December. We discussed taking with medication management at least until after she sees the surgeon, patient is agreeable. Review of Systems Constitutional: Negative. HENT: Negative. Eyes: Negative. Respiratory: Negative for cough, shortness of breath and wheezing. Cardiovascular: Negative for chest pain, palpitations and leg swelling. Endocrine: Negative. Genitourinary: Negative. Musculoskeletal: Positive for back pain and myalgias. Negative for arthralgias. Skin: Negative. Allergic/Immunologic: Negative. Neurological: Negative for facial asymmetry, weakness and light-headedness. Hematological: Negative for adenopathy. Does not bruise/bleed easily. Psychiatric/Behavioral: Negative for dysphoric mood and suicidal ideas. Objective Physical Exam Constitutional: General: She is not in acute distress. Appearance: Normal appearance. HENT: Head: Normocephalic. Mouth/Throat: Mouth: Mucous membranes are moist. Eyes: Extraocular Movements: Extraocular movements intact. Cardiovascular: Rate and Rhythm: Normal rate and regular rhythm. Pulses: Normal pulses. Heart sounds: Normal heart sounds. No murmur heard. No friction rub. No gallop. Pulmonary: Effort: Pulmonary effort is normal. Breath sounds: Normal breath sounds. No wheezing, rhonchi or rales. Abdominal: General: Abdomen is flat. Palpations: Abdomen is soft. Musculoskeletal: Cervical back: Normal range of motion. Right lower leg: No edema. Left lower leg: No edema. Comments: Ambulates with a rollator Strength 5/5 RLE, 4/5 LLE Lymphadenopathy: Cervical: No cervical adenopathy. Skin: General: Skin is warm and dry. Neurological: General: No focal deficit present. Mental Status: She is alert and oriented to person, place, and time. Mental status is at baseline. Psychiatric: Mood and Affect: Mood normal. Behavior: Behavior normal. Assessment/Plan Diagnoses and all orders for this visit: Lumbar stenosis with neurogenic claudication - pregabalin (Lyrica) 50 mg capsule; Take 1 capsule (50 mg) by mouth 2 times a day. The patient is a 78-year-old female with past medical history significant for the above-mentioned problems. Lyrica is helping take the edge off of her pain, we discussed increasing the dose on an uptitrating schedule while paying close attention to the blurred vision to see if it worsens, which would mean it is a side effect, or if it is staying the same meaning it is a separate issue. We will uptitrate to a goal dose of 50 mg twice a day, patient and family voices understanding. PDMP reviewed, Rx sent. Otherwise, we will follow-up in 4 to 6 weeks to reevaluate and to be updated on what the surgeon says, call the clinic sooner if needed. documented in this encounter [facility] Work Phone: 12-16-2024 History of Present illness Narrative Follow up; would like to discuss potassium with DERIK Patient presents for periodic surveillance of chronic medical problems. Subjective Uzma Duran is a 78 y.o. female who presents for Follow-up. HPI -Sleep apnea, cpap is going well, sleeping well. -On Lasix for hyponatremia, dose recently increased back to original -Left leg still weak with radiculopathy, pain improved. Sees pain management. Weakness not improving with therapy per patient. States has numbness in tingling in toes, left greater than right -PE on anticoagulation, appt with hem/onc pending, asking for recommendations/opinion regarding duration of treatment Appetite improved. Dysphagia resolved, did not start pepcid. HTN, controlled on current regimen, she's going to double check and let us know whether she's taking 1/2 at 50 or 1/2 a 25 mg. Review of Systems All other systems reviewed and are negative. . Allergies[1] Medications Ordered Prior to Encounter[2] Problem List[3] Objective Visit Vitals BP 128/78 (BP Location: Left arm, Patient Position: Sitting) Pulse 92 Physical Exam Vitals and nursing note reviewed. Constitutional: General: She is not in acute distress. Appearance: Normal appearance. She is not toxic-appearing. HENT: Head: Normocephalic and atraumatic. Cardiovascular: Rate and Rhythm: Normal rate and regular rhythm. Heart sounds: No murmur heard. Pulmonary: Effort: Pulmonary effort is normal. Breath sounds: Normal breath sounds. Musculoskeletal: Cervical back: Neck supple. No rigidity. Comments: Skin: General: Skin is warm. Neurological: General: No focal deficit present. Mental Status: She is alert and oriented to person, place, and time. Psychiatric: Mood and Affect: Mood normal. Behavior: Behavior normal. Assessment/Plan Problem List Items Addressed This Visit Severe obstructive sleep apnea Hypertension Relevant Medications furosemide (Lasix) 20 mg tablet potassium chloride (Klor-Con) 20 mEq packet Hyponatremia Relevant Medications furosemide (Lasix) 20 mg tablet potassium chloride (Klor-Con) 20 mEq packet Lumbar radiculopathy - Primary Hypokalemia Lumbar stenosis with neurogenic claudication Other Visit Diagnoses Acute deep vein thrombosis (DVT) of proximal vein of left lower extremity (Multi) Time Spent Time spent directly with patient, family or caregiver: 24 minutes Other Time Spent: 17 minutes (documentation and chart review) Routine follow up 3 mos, call concerns. Cyndi Horn MD [1] Allergies Allergen Reactions Amlodipine Swelling Ankle swelling Penicillins Rash [2] Current Outpatient Medications on File Prior to Visit Medication Sig Dispense Refill atorvastatin (Lipitor) 40 mg tablet Take 0.5 tablets (20 mg) by mouth once daily. cyanocobalamin, vitamin B-12, (VITAMIN B-12 ORAL) Take 1 tablet by mouth early in the morning.. docosahexaenoic acid/epa (FISH OIL ORAL) Take 1 capsule by mouth early in the morning.. L. acidophilus/Bifid. animalis 32 billion cell capsule Take 1 capsule by mouth once daily. losartan (Cozaar) 25 mg tablet Take 1 tablet (25 mg) by mouth once daily. mirtazapine (Remeron) 15 mg tablet Take 1 tablet (15 mg) by mouth once daily at bedtime. 30 tablet 2 ondansetron ODT (Zofran-ODT) 8 mg disintegrating tablet Dissolve 1 tablet (8 mg) in the mouth every 8 hours if needed for nausea or vomiting. 20 tablet 1 [DISCONTINUED] acetaminophen (Tylenol) 325 mg tablet Take 2 tablets (650 mg) by mouth every 6 hours if needed for mild pain (1 - 3). (Patient not taking: Reported on 12/16/2024) [DISCONTINUED] apixaban (Eliquis) 5 mg (74 tabs) tablet Take 2 tablets (10 mg) by mouth 2 times a day for 7 days, THEN 1 tablet (5 mg) 2 times a day. 74 tablet 0 [DISCONTINUED] diclofenac sodium (Voltaren) 1 % gel Apply 4.5 inches (4 g) topically 4 times a day as needed (as needed for pain). (Patient not taking: Reported on 12/16/2024) 100 g 1 [DISCONTINUED] famotidine (Pepcid) 20 mg tablet Take 1 tablet (20 mg) by mouth once daily. 30 tablet 2 [DISCONTINUED] potassium chloride 20 mEq/15 mL liquid Take 15 mL (20 mEq) by mouth once daily. 473 mL 1 [DISCONTINUED] pregabalin (Lyrica) 25 mg capsule Take 1 capsule (25 mg) by mouth 2 times a day. 60 capsule 2 [DISCONTINUED] furosemide (Lasix) 20 mg tablet Take 1 tablet (20 mg) by mouth 2 times daily (morning and late afternoon). (Patient taking differently: Take 1 tablet (20 mg) by mouth 2 times daily (morning and late afternoon). 2 IN THE MORNING AND ONE AT NIGHT) 60 tablet 1 [DISCONTINUED] sodium chloride 1,000 mg tablet Take 2 tablets (2 g) by mouth 2 times daily (morning and late afternoon). 120 tablet 1 No current facility-administered medications on file prior to visit. [3] Patient Active Problem List Diagnosis Elevated glucose Hyperlipidemia Multiple thyroid nodules Osteoporosis Severe obstructive sleep apnea Tubular adenoma of colon Hypertension Agatston CAC score, >400 Hyponatremia Lumbar radiculopathy Hypokalemia Right carpal tunnel syndrome Lumbar stenosis with neurogenic claudication Other pulmonary embolism without acute cor pulmonale documented in this encounter [facility] Work Phone: 11-18-2024 History of Present illness Narrative Subjective Patient ID: Uzma Duran is a 78 y.o. female who presents for Follow-up (FOLLOW UP CAUDAL RADHA DONE ON 10/15/24 PATIENT HAD SHORT TERM RELIEF FOR 2 WEEKS, SHE WAS DOING PHYSICAL THERAPY EXERCISES AND WALKING WITH A WALKER, ON 11/02/24 SHE FELL AND LANDED ON HER LEFT SIDE WAS TAKEN TO THE ER, SHE STATES SHE FELT HER LEFT LEG GO OUT, SHE WENT TO THE ER, SHE HAS HAD MULTIPLE FALLS AND FEELING HER LEFT LEG GO OUT, ). MOST RECENTLY SHE FOUND OUT SHE HAD A PE AND IS ON ELIQUIS, SHE DID FALL YESTERDAY TWICE HAD TO HAVE ASSISTANCE GETTING UP , WEAKNESS IN LEGS, PAIN DOWN INTO THE LEFT LEG DOWN TO HER LEFT LOWER LEG, WHEN SHE TRANSITIONS SHE HAS TROUBLE STANDING NO STRENGTH, SHE PRESENTS IN A WHEELCHAIR TODAY, STILL TRYING TO DOING PHYSICAL THERAPY EXERCISES, SHE IS TAKING THE DULOXETINE 30 MG BUT HAS NOTICED LOSS OF APPETITE AND WEIGHT LOSS WOULD LIKE TO DISCUSS BECAUSE SHE JUST FINISHED THE LAST PILL YESTERDAY, SHE FEELS THE MEDICATION WEARING OFF BY THE EVENING WANTING TO KNOW IF IT IS SUPPOSED TO LAST 24 HOURS, PAIN SCORE 5/10, ELZA=74% Xiomy Carias, ROLDAN 11/18/24 2:50 PM The patient is a 78-year-old female presents today for follow-up after undergoing caudal epidural steroid injection on 10/15/2024. The patient reports moderate relief from this procedure with around 50% pain relief lasting for about 2 weeks before the pain returned. Unfortunately on 11/02/2024 she fell and landed on her left side, which is when the pain returned. She currently rates her pain a 5/10 across her lower back with weakness radiating into bilateral legs, left greater than right. She has had numerous falls, she says it feels as if her legs just give out. More recently on 11/14/2024 she was found to have DVTs and PEs, and has since been started on Eliquis. At her last appointment she was continued on duloxetine 30 mg daily, she has been having significant lack of appetite with around a 14 pound weight loss since starting this medication. We discussed discontinuing this medication, as those are some lesser common side effects to it. She has previously been on gabapentin, but did not like the side effects to this medication either. We discussed how with the blood clots and being started on a blood thinner, she will be unable to come off of it for the next 3 to 6 months to pursue any RADHA's. She is wondering what the next steps are to help with the plan, and the family is asking whether or not we would be able to pursue a low-dose maintenance prednisone while she is unable to come off of the blood thinner. Review of Systems Constitutional: Negative. HENT: Negative. Eyes: Negative. Respiratory: Negative for cough, shortness of breath and wheezing. Cardiovascular: Negative for chest pain, palpitations and leg swelling. Endocrine: Negative. Genitourinary: Negative. Musculoskeletal: Positive for back pain and myalgias. Negative for arthralgias. Skin: Negative. Allergic/Immunologic: Negative. Neurological: Negative for facial asymmetry, weakness and light-headedness. Hematological: Negative for adenopathy. Does not bruise/bleed easily. Psychiatric/Behavioral: Negative for dysphoric mood and suicidal ideas. Objective Physical Exam Constitutional: General: She is not in acute distress. Appearance: Normal appearance. HENT: Head: Normocephalic. Mouth/Throat: Mouth: Mucous membranes are moist. Eyes: Extraocular Movements: Extraocular movements intact. Cardiovascular: Rate and Rhythm: Normal rate and regular rhythm. Pulses: Normal pulses. Heart sounds: Normal heart sounds. No murmur heard. No friction rub. No gallop. Pulmonary: Effort: Pulmonary effort is normal. Breath sounds: Normal breath sounds. No wheezing, rhonchi or rales. Abdominal: General: Abdomen is flat. Palpations: Abdomen is soft. Musculoskeletal: Cervical back: Normal range of motion. Right lower leg: No edema. Left lower leg: No edema. Comments: Presents in wheelchair Strength 4/5 BLE Lymphadenopathy: Cervical: No cervical adenopathy. Skin: General: Skin is warm and dry. Neurological: General: No focal deficit present. Mental Status: She is alert and oriented to person, place, and time. Mental status is at baseline. Psychiatric: Mood and Affect: Mood normal. Behavior: Behavior normal. Assessment/Plan Diagnoses and all orders for this visit: Lumbar radiculopathy - predniSONE (Deltasone) 20 mg tablet; Take 1 tablet (20 mg) by mouth 3 times a day for 5 days, THEN 1 tablet (20 mg) 2 times a day for 5 days, THEN 1 tablet (20 mg) once daily for 5 days. - pregabalin (Lyrica) 25 mg capsule; Take 1 capsule (25 mg) by mouth 2 times a day. The patient is a 78-year-old female with a past medical history significant for the above-mentioned problems. We will discontinue the duloxetine. We reviewed her MRI imaging and discussed how she has stenosis at L4-5 that may be causing neurogenic claudication, which could contribute to the weakness in her legs and the falls. We discussed trialing pregabalin 25 mg twice a day on an uptitrating schedule, risks and side effects discussed with the patient, patient is agreeable. PDMP reviewed, Rx sent. We also discussed a steroid pack to see if this can help with the pain and weakness in her legs, and we will reach out to her PCP to see about the possibility of continuing on with a low-dose maintenance prednisone to see if this can help keep her symptoms manageable for the next 3 to 6 months, until she would be able to come off of the Eliquis for an injection. Otherwise, we will follow-up with her in 1 month, call the clinic sooner if needed. documented in this encounter [facility] Work Phone: 11-18-2024 Instructions Asya Aivla RN - 11/18/2024 2:45 PM EDT Injection education completed written and verbally. documented in this encounter [facility] Work Phone: 11-18-2024 History of Present illness Narrative Hospital follow up; weight at home today 114 Patient presents for periodic surveillance of chronic medical problems. Subjective Uzma Duran is a 78 y.o. female who presents for Follow-up. HPI Followup hospital stay. -Admitted 11/14 , discharged 11/16 for acute pulmonary embolism, and found to have left leg dvt, on anticoagulation. Its unclear when this developed, as PE was discovered on ct chest /abdomen/pelvis that was done for recent weight loss. She did have a couple of car trips this summer. She did not have calf swelling or pain, she did not have chest pain or shortness of breath, and at this time the timing /provoked/unprovoked status of the Clots are unknown. Will consult hematology regarding how long to continue anticoagulation, reviewed minimum is 3 mos, can be lifetime depending. -She has lumbar radiculopathy, had MRI of spine in September. This was her original presenting symptom this summer. Has been in pain management and had one injection which initially completely resolved her symptoms. Back on cymbalta for pain now, and has weakness in that leg, with two falls, and has neuro surg referral pending. -Concerns of difficulty swallowing, everything, unexplained weight changes, has GI appt and will start trial of pepcid. -Sleep apnea, on cpap,has used two nights. Diagnosed ten years ago and recently agreed to treatment with cpap. Naps during day, difficulty sleeping at night. Discussed I do not recommend prescription sleep meds due to risk and treating her cpap, should diminish her napping which should help the insomnia. Daughter knows an insomnia therapist she's going to try to get her in to. -Hyponatremia, discovered at ER visit for lumbar radiculopathy, was 11 initially. On sodium and lasix and potassium since then through nephrology. I believe her meds , that she needs, are in part contributing to her loss of appetite and weight changes. -Family requested neurology referral for concerns of MS, pending Review of Systems All other systems reviewed and are negative. . Allergies[1] Medications Ordered Prior to Encounter[2] Problem List[3] Objective Visit Vitals BP 120/60 (BP Location: Right arm, Patient Position: Sitting) Pulse 104 Physical Exam Vitals and nursing note reviewed. Constitutional: General: She is not in acute distress. Appearance: Normal appearance. She is not toxic-appearing. HENT: Head: Normocephalic and atraumatic. Cardiovascular: Rate and Rhythm: Normal rate and regular rhythm. Heart sounds: No murmur heard. Pulmonary: Effort: Pulmonary effort is normal. Breath sounds: Normal breath sounds. Musculoskeletal: Cervical back: Neck supple. No rigidity. Comments: Skin: General: Skin is warm and dry. Neurological: General: No focal deficit present. Mental Status: She is alert and oriented to person, place, and time. Psychiatric: Mood and Affect: Mood normal. Behavior: Behavior normal. Assessment/Plan Problem List Items Addressed This Visit Severe obstructive sleep apnea Hyponatremia Lumbar radiculopathy Hypokalemia Right carpal tunnel syndrome Other Visit Diagnoses Other acute pulmonary embolism without acute cor pulmonale - Primary Relevant Orders Referral To Hematology and Oncology Nausea Relevant Medications ondansetron ODT (Zofran-ODT) 8 mg disintegrating tablet Need for influenza vaccination Relevant Orders Flu vaccine, trivalent, preservative free, HIGH-DOSE, age 65y+ (Fluzone) (Completed) Dyspepsia Relevant Medications famotidine (Pepcid) 20 mg tablet Acute deep vein thrombosis (DVT) of other specified vein of left lower extremity Routine follow up monthly. Keep appt with specialists. Call concerns. High dose influenza vaccine today. Cyndi Horn MD Patient was identified as a fall risk. Risk prevention instructions provided. [1] Allergies Allergen Reactions Amlodipine Swelling Ankle swelling Penicillins Rash [2] Current Outpatient Medications on File Prior to Visit Medication Sig Dispense Refill acetaminophen (Tylenol) 325 mg tablet Take 2 tablets (650 mg) by mouth every 6 hours if needed for mild pain (1 - 3). apixaban (Eliquis) 5 mg (74 tabs) tablet Take 2 tablets (10 mg) by mouth 2 times a day for 7 days, THEN 1 tablet (5 mg) 2 times a day. 74 tablet 0 atorvastatin (Lipitor) 40 mg tablet Take 0.5 tablets (20 mg) by mouth once daily. cyanocobalamin, vitamin B-12, (VITAMIN B-12 ORAL) Take 1 tablet by mouth early in the morning.. diclofenac sodium (Voltaren) 1 % gel Apply 4.5 inches (4 g) topically 4 times a day as needed (as needed for pain). 100 g 1 docosahexaenoic acid/epa (FISH OIL ORAL) Take 1 capsule by mouth early in the morning.. DULoxetine (Cymbalta) [address] capsule Take 1 capsule (30 mg) by mouth once daily. Do not crush or chew. Take in the morning with food. furosemide (Lasix) 20 mg tablet Take 1 tablet (20 mg) by mouth 2 times daily (morning and late afternoon). 60 tablet 1 L. acidophilus/Bifid. animalis 32 billion cell capsule Take 1 capsule by mouth once daily. losartan (Cozaar) 25 mg tablet Take 1 tablet (25 mg) by mouth once daily. mirtazapine (Remeron) 15 mg tablet Take 1 tablet (15 mg) by mouth once daily at bedtime. 30 tablet 2 potassium chloride 20 mEq/15 mL liquid Take 15 mL (20 mEq) by mouth once daily. 473 mL 1 sodium chloride 1,000 mg tablet Take 2 tablets (2 g) by mouth 2 times daily (morning and late afternoon). 120 tablet 1 [DISCONTINUED] ondansetron ODT (Zofran-ODT) 8 mg disintegrating tablet Dissolve 1 tablet (8 mg) in the mouth every 8 hours if needed for nausea or vomiting. 20 tablet 1 [DISCONTINUED] ascorbic acid/collagen hydr (COLLAGEN SKIN RENEWAL ORAL) Take by mouth once daily. No current facility-administered medications on file prior to visit. [3] Patient Active Problem List Diagnosis Elevated glucose Hyperlipidemia Multiple thyroid nodules Osteoporosis Severe obstructive sleep apnea Tubular adenoma of colon Hypertension Agatston CAC score, >400 Hyponatremia Lumbar radiculopathy Hypokalemia Right carpal tunnel syndrome documented in this encounter [facility] Work Phone: 11-18-2024 Instructions Cyndi Horn MD - 11/18/2024 10:20 AM EDT Ways to Help Prevent Falls at Home Quick Tips ? Ask for help if you need it. Most people want to help! ? Get up slowly after sitting or laying down ? Wear a medical alert device or keep cell phone in your pocket ? Use night lights, especially areas near a bathroom ? Keep the items you use often within reach on a small stool or end table ? Use an assistive device such as walker or cane, as directed by provider/physical therapy ? Use a non-slip mat and grab bars in your bathroom. Look for home health sections for best options Other Areas to Focus On ? Exercise and nutrition: Regular exercise or taking a falls prevention class are great ways improve strength and balance. Don t forget to stay hydrated and bring a snack! ? Medicine side effects: Some medicines can make you sleepy or dizzy, which could cause a fall. Ask your healthcare provider about the side effects your medicines could cause. Be sure to let them know if you take any vitamins or supplements as well. ? Tripping hazards: Remove items you could trip on, such as loose mats, rugs, cords, and clutter. Wear closed toe shoes with rubber soles. ? Health and wellness: Get regular checkups with your healthcare provider, plus routine vision and hearing screenings. Talk with your healthcare provider about: o Your medicines and the possible side effects - bring them in a bag if that is easier! o Problems with balance or feeling dizzy o Ways to promote bone health, such as Vitamin D and calcium supplements o Questions or concerns about falling *Ask your healthcare team if you have questions [facility]2021 documented in this encounter [facility] Work Phone: 11-16-2024 Hospital course Narrative Discharge Diagnosis Personal history of pulmonary embolism Issues Requiring Follow-Up PCP and hematology Discharge Meds Medication List START taking these medications apixaban 5 mg (74 tabs) tablet; Commonly known as: Eliquis; Take 2 tablets (10 mg) by mouth 2 times a day for 7 days, THEN 1 tablet (5 mg) 2 times a day.; Start taking on: November 16, 2024 CHANGE how you take these medications furosemide 20 mg tablet; Commonly known as: Lasix; Take 1 tablet (20 mg) by mouth 2 times daily (morning and late afternoon).; What changed: additional instructions sodium chloride 1,000 mg tablet; Take 2 tablets (2 g) by mouth 2 times daily (morning and late afternoon).; What changed: how much to take, how to take this, when to take this, additional instructions CONTINUE taking these medications acetaminophen 325 mg tablet; Commonly known as: Tylenol atorvastatin 40 mg tablet; Commonly known as: Lipitor; Take 0.5 tablets (20 mg) by mouth once daily. diclofenac sodium 1 % gel; Commonly known as: Voltaren; Apply 4.5 inches (4 g) topically 4 times a day as needed (as needed for pain). DULoxetine [address] capsule; Commonly known as: Cymbalta; Take 1 capsule (30 mg) by mouth once daily. Do not crush or chew. Take in the morning with food. FISH OIL ORAL L. acidophilus/Bifid. animalis 32 billion cell capsule losartan 25 mg tablet; Commonly known as: Cozaar; Take 1 tablet (25 mg) by mouth once daily. mirtazapine 15 mg tablet; Commonly known as: Remeron; Take 1 tablet (15 mg) by mouth once daily at bedtime. ondansetron ODT 8 mg disintegrating tablet; Commonly known as: Zofran-ODT; Dissolve 1 tablet (8 mg) in the mouth every 8 hours if needed for nausea or vomiting. potassium chloride 20 mEq/15 mL liquid; Take 15 mL (20 mEq) by mouth once daily. VITAMIN B-12 ORAL Test Results Pending At Discharge Pending Labs Order Current Status Extra Tubes Preliminary result Lavender Top Preliminary result PST Top Preliminary result Hospital Course 78-year-old female with history of Sleep apnea Hyperlipidemia Hypertension Hyponatremia Depression Presenting with DVT/PE Plan Telemetry completed Follow vitals, pulse ox, stable Today CBC BMP monitored On heparin drip, switch to DOAC, Eliquis Follow clinical progress, doing well Attempted pain control with morphine IV on as need basis Follow hematology outpatient, discussed with patient as she is declining in last 2 months with weight loss and not as physically active with low energy and fatigue Continued home medicines Atorvastatin, losartan, Lasix, potassium supplement, sodium chloride tablet, probiotics, MiraLAX, Cymbalta, mirtazapine Nutrition Supportive care, education counseling done DVT prophylaxis addressed Pertinent Physical Exam At Time of Discharge Physical Exam General Appearance: AAO x 3, Skin: skin color pink, warm, and dry; no suspicious rashes or lesions Eyes : PERRL, EOM's intact ENT: mucous membranes pink and moist Neck: normocephalic Respiratory: lungs clear to auscultation anteriorly; no wheezing, rhonchi, or crackles. Heart: regular rate and rhythm. Abdomen: Nondistended, positive bowel sounds x4, soft, nontender Extremities: no edema Peripheral pulses: normal x4 extremities Neuro: alert, coherent and conversant, no focal motor deficits Outpatient Follow-Up Future Appointments Date Time Provider Department Center 11/18/2024 10:20 AM Cyndi Horn MD [id number] [facility] 11/18/2024 2:45 PM Naveed Gustafson, ANALYSIS REPORTING DEVELOPER-[employer] [id number] [facility] 12/17/2024 1:00 PM Savanna Calderon MD [id number] [facility] 01/13/2025 3:15 PM Bhaskar Davies DO [id number] [facility] 01/16/2025 9:30 AM Gerson Ram DO [id number] [facility] 02/07/2025 11:00 AM Cyndi Horn MD [id number] [facility] Time to dc > 35 minutes Suzanne Steward MD documented in this encounter [facility] Work Phone: 11-16-2024 Plan of care note The clinical goals for the shift include discharge. Problem: Nutrition Goal: Nutrient intake appropriate for maintaining nutritional needs Outcome: Not Progressing Problem: Skin Goal: Promote/optimize nutrition Outcome: Not Progressing Flowsheets (Taken 11/16/2024 1207) Promote/optimize nutrition: Monitor/record intake including meals [facility] 11-16-2024 Miscellaneous Notes The clinical goals for the shift include discharge. Problem: Nutrition Goal: Nutrient intake appropriate for maintaining nutritional needs Outcome: Not Progressing Problem: Skin Goal: Promote/optimize nutrition Outcome: Not Progressing Flowsheets (Taken 11/16/2024 1207) Promote/optimize nutrition: Monitor/record intake including meals The clinical goals for the shift include pain control Problem: Pain - Adult Goal: Verbalizes/displays adequate comfort level or baseline comfort level Outcome: Progressing Problem: Safety - Adult Goal: Free from fall injury Outcome: Progressing Problem: Discharge Planning Goal: Discharge to home or other facility with appropriate resources Outcome: Progressing Problem: Chronic Conditions and Co-morbidities Goal: Patient's chronic conditions and co-morbidity symptoms are monitored and maintained or improved Outcome: Progressing Problem: Nutrition Goal: Nutrient intake appropriate for maintaining nutritional needs Outcome: Progressing Problem: Skin Goal: Decreased wound size/increased tissue granulation at next dressing change Outcome: Progressing Goal: Participates in plan/prevention/treatment measures Outcome: Progressing Goal: Prevent/manage excess moisture Outcome: Progressing Goal: Prevent/minimize sheer/friction injuries Outcome: Progressing Goal: Promote/optimize nutrition Outcome: Progressing Goal: Promote skin healing Outcome: Progressing Problem: Fall/Injury Goal: Not fall by end of shift Outcome: Progressing Goal: Be free from injury by end of the shift Outcome: Progressing Goal: Verbalize understanding of personal risk factors for fall in the hospital Outcome: Progressing Goal: Verbalize understanding of risk factor reduction measures to prevent injury from fall in the home Outcome: Progressing Goal: Use assistive devices by end of the shift Outcome: Progressing Goal: Pace activities to prevent fatigue by end of the shift Outcome: Progressing Problem: Pain Goal: Takes deep breaths with improved pain control throughout the shift Outcome: Progressing Goal: Turns in bed with improved pain control throughout the shift Outcome: Progressing Goal: Walks with improved pain control throughout the shift Outcome: Progressing Goal: Performs ADL's with improved pain control throughout shift Outcome: Progressing Goal: Participates in PT with improved pain control throughout the shift Outcome: Progressing Goal: Free from opioid side effects throughout the shift Outcome: Progressing Goal: Free from acute confusion related to pain meds throughout the shift Outcome: Progressing Problem: Pain - Adult Goal: Verbalizes/displays adequate comfort level or baseline comfort level Outcome: Progressing Problem: Safety - Adult Goal: Free from fall injury Outcome: Progressing Problem: Discharge Planning Goal: Discharge to home or other facility with appropriate resources Outcome: Progressing Problem: Chronic Conditions and Co-morbidities Goal: Patient's chronic conditions and co-morbidity symptoms are monitored and maintained or improved Outcome: Progressing Problem: Nutrition Goal: Nutrient intake appropriate for maintaining nutritional needs Outcome: Progressing The patient's goals for the shift include The clinical goals for the shift include rest, titrate heparin gtt as ordered Problem: Pain - Adult Goal: Verbalizes/displays adequate comfort level or baseline comfort level Outcome: Progressing Problem: Safety - Adult Goal: Free from fall injury Outcome: Progressing Problem: Discharge Planning Goal: Discharge to home or other facility with appropriate resources Outcome: Progressing Problem: Chronic Conditions and Co-morbidities Goal: Patient's chronic conditions and co-morbidity symptoms are monitored and maintained or improved Outcome: Progressing Problem: Nutrition Goal: Nutrient intake appropriate for maintaining nutritional needs Outcome: Progressing Problem: Skin Goal: Promote/optimize nutrition Outcome: Progressing Flowsheets (Taken 11/15/2024 0109) Promote/optimize nutrition: Consume > 50% meals/supplements Problem: Pain - Adult Goal: Verbalizes/displays adequate comfort level or baseline comfort level Outcome: Progressing Problem: Safety - Adult Goal: Free from fall injury Outcome: Progressing Problem: Discharge Planning Goal: Discharge to home or other facility with appropriate resources Outcome: Progressing Problem: Chronic Conditions and Co-morbidities Goal: Patient's chronic conditions and co-morbidity symptoms are monitored and maintained or improved Outcome: Progressing Problem: Nutrition Goal: Nutrient intake appropriate for maintaining nutritional needs Outcome: Progressing Problem: Skin Goal: Decreased wound size/increased tissue granulation at next dressing change Outcome: Progressing Flowsheets (Taken 11/14/20241741) Decreased wound size/increased tissue granulation at next dressing change: Promote sleep for wound healing Goal: Participates in plan/prevention/treatment measures Outcome: Progressing Flowsheets (Taken 11/14/20241741) Participates in plan/prevention/treatment measures: Elevate heels Increase activity/out of bed for meals Goal: Prevent/manage excess moisture Outcome: Progressing Flowsheets (Taken 11/14/20241741) Prevent/manage excess moisture: Monitor for/manage infection if present Cleanse incontinence/protect with barrier cream Goal: Prevent/minimize sheer/friction injuries Outcome: Progressing Flowsheets (Taken 11/14/20241741) Prevent/minimize sheer/friction injuries: HOB 30 degrees or less Turn/reposition every 2 hours/use positioning/transfer devices Increase activity/out of bed for meals Goal: Promote/optimize nutrition Outcome: Progressing Flowsheets (Taken 11/14/20241741) Promote/optimize nutrition: Assist with feeding Consume > 50% meals/supplements Monitor/record intake including meals Offer water/supplements/favorite foods Goal: Promote skin healing Outcome: Progressing Flowsheets (Taken 11/14/20241741) Promote skin healing: Assess skin/pad under line(s)/device(s) Turn/reposition every 2 hours/use positioning/transfer devices The clinical goals for the shift include rest, titrate heparin gtt as ordered This note represents a summary of a virtual evaluation requested by Dr. Armond Hoffman. Suggestions and impression are summarized from the initial virtual encounter and discussion with the referring medical team. These suggestions supplement but should not be a substitute for bedside evaluation and management by the attending of record. 78yo F with who had a PE detected on outpatient CT scan (not PE protocol). No Heart disease/lung disease per referring provider. Not beta blocked per referring provider and looks well. US Duplex not released, but has clot in LLE. Vitals: Not tachycardic, SBP >100, not tachypneic, on RA saturating well. PESI Score: 77, consistent with [id number]: Class II, or Low risk (1.7-3.5% 30-day mortality risk) PE. Recommendations: -Echocardiogram -Complete LE US Duplex -CTPE protocol -lactate/BNP/repeat Trop -Leg exam to r/o ischemia as a result of venous thrombi which may need vasc surgery eval -Please re-engage if clinical changes occur / any of the above results are concerning -continue heparin drip (no Contraindications per referring provider) -admit to inpatient telemetry -cancer screening per referring provider / primary after discharge Discussed with Dr. Hong, ICU attending Cosigned by Zenia Hong MD at 11/14/2024 5:12 PM EDT documented in this encounter [facility] Work Phone: 11-16-2024 Plan of care note The clinical goals for the shift include pain control Problem: Pain - Adult Goal: Verbalizes/displays adequate comfort level or baseline comfort level Outcome: Progressing Problem: Safety - Adult Goal: Free from fall injury Outcome: Progressing Problem: Discharge Planning Goal: Discharge to home or other facility with appropriate resources Outcome: Progressing Problem: Chronic Conditions and Co-morbidities Goal: Patient's chronic conditions and co-morbidity symptoms are monitored and maintained or improved Outcome: Progressing Problem: Nutrition Goal: Nutrient intake appropriate for maintaining nutritional needs Outcome: Progressing Problem: Skin Goal: Decreased wound size/increased tissue granulation at next dressing change Outcome: Progressing Goal: Participates in plan/prevention/treatment measures Outcome: Progressing Goal: Prevent/manage excess moisture Outcome: Progressing Goal: Prevent/minimize sheer/friction injuries Outcome: Progressing Goal: Promote/optimize nutrition Outcome: Progressing Goal: Promote skin healing Outcome: Progressing Problem: Fall/Injury Goal: Not fall by end of shift Outcome: Progressing Goal: Be free from injury by end of the shift Outcome: Progressing Goal: Verbalize understanding of personal risk factors for fall in the hospital Outcome: Progressing Goal: Verbalize understanding of risk factor reduction measures to prevent injury from fall in the home Outcome: Progressing Goal: Use assistive devices by end of the shift Outcome: Progressing Goal: Pace activities to prevent fatigue by end of the shift Outcome: Progressing Problem: Pain Goal: Takes deep breaths with improved pain control throughout the shift Outcome: Progressing Goal: Turns in bed with improved pain control throughout the shift Outcome: Progressing Goal: Walks with improved pain control throughout the shift Outcome: Progressing Goal: Performs ADL's with improved pain control throughout shift Outcome: Progressing Goal: Participates in PT with improved pain control throughout the shift Outcome: Progressing Goal: Free from opioid side effects throughout the shift Outcome: Progressing Goal: Free from acute confusion related to pain meds throughout the shift Outcome: Progressing [facility] 11-15-2024 History of Present illness Narrative Uzma Duran is a 78 y.o. female on day 1 of admission presenting with Personal history of pulmonary embolism. Subjective No chest pain or shortness of breath Generalized weakness Weight loss Appetite low Objective Physical Exam General Appearance: AAO x 3, Skin: skin color pink, warm, and dry; no suspicious rashes or lesions Eyes : PERRL, EOM's intact ENT: mucous membranes pink and moist Neck: normocephalic Respiratory: lungs clear to auscultation anteriorly; no wheezing, rhonchi, or crackles. Heart: regular rate and rhythm. Abdomen: Nondistended, positive bowel sounds x4, soft, nontender Extremities: no edema Peripheral pulses: normal x4 extremities Neuro: alert, coherent and conversant, no focal motor deficits Last Recorded Vitals Blood pressure 104/68, pulse 90, temperature 36 C (96.8 F), temperature source Temporal, resp. rate 18, height 1.499 m (4' 11), weight 53.7 kg (118 lb 6.2 oz), SpO2 96%. Intake/Output last 3 Shifts: I/O last 3 completed shifts: In: 368.7 (6.9 mL/kg) [P.O.:240; I.V.:128.7 (2.4 mL/kg)] Out: 575 (10.7 mL/kg) [Urine:575 (0.3 mL/kg/hr)] Weight: 53.7 kg Relevant Results Results for orders placed or performed during the hospital encounter of 11/14/24 (from the past 24 hours) Heparin Assay, UFH Result Value Ref Range Heparin Unfractionated 0.6 See Comment Below for Therapeutic Ranges IU/mL Heparin Assay, UFH Result Value Ref Range Heparin Unfractionated 0.6 See Comment Below for Therapeutic Ranges IU/mL CBC Result Value Ref Range WBC 13.1 (H) 4.4 - 11.3 x10*3/uL nRBC 0.0 0.0 - 0.0 /100 WBCs RBC 3.63 (L) 4.00 - 5.20 x10*6/uL Hemoglobin 11.6 (L) 12.0 - 16.0 g/dL Hematocrit 34.8 (L) 36.0 - 46.0 % MCV 96 80 - 100 fL MCH 32.0 26.0 - 34.0 pg MCHC 33.3 32.0 - 36.0 g/dL RDW 13.7 11.5 - 14.5 % Platelets 253 150 - 450 x10*3/uL Basic metabolic panel Result Value Ref Range Glucose 108 (H) 74 - 99 mg/dL Sodium 132 (L) 136 - 145 mmol/L Potassium 3.3 (L) 3.5 - 5.3 mmol/L Chloride 98 98 - 107 mmol/L Bicarbonate 26 21 - 32 mmol/L Anion Gap 11 10 - 20 mmol/L Urea Nitrogen 13 6 - 23 mg/dL Creatinine 0.53 0.50 - 1.05 mg/dL eGFR >90 >60 mL/min/1.73m*2 Calcium 8.6 8.6 - 10.3 mg/dL Heparin Assay, UFH Result Value Ref Range Heparin Unfractionated 0.6 See Comment Below for Therapeutic Ranges IU/mL Vascular US lower extremity venous duplex bilateral Result Date: 11/15/2024 [place] [address] [phone], Vascular Lab Report VASC US LOWER EXTREMITY VENOUS DUPLEX BILATERAL Patient Name: UZMA Morales Physician: [id number] Shannan Bolaños MD Study Date: 11/14/2024 Ordering Provider: [id number] AMROND HOFFMAN MRN/PID: [id number] Fellow: Technologist: Morales Taylor RVT Date of /Age: 10 1945 Technologist 2: years Gender: F Admission Status: Emergency Location Performed: [facility] Diagnosis/ICD: Shortness of breath-R06.02 CPT Codes: 31412 Peripheral venous duplex scan for DVT complete Pertinent History: Leg pain and PE. CRITICAL RESULT Critical Result: Left leg DVT Notification called to Dr Armond Hoffman on 11/14/2024 at 11:07:53 AM. Acknowledged critical results notification communicated via at bedside by Wero Taylor RVT. 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 Right Lower Venous: No evidence of acute deep vein thrombus visualized in the right lower extremity. Additional Findings; Cystic Structure noted in the popliteal fossa measuring 4.1 x 2.3 x 1.1 cm. Left Lower Venous: There is acute occlusive deep vein thrombosis visualized in the posterior tibial, peroneal and soleal veins. There is acute non-occlusive deep vein thrombosis visualized in the popliteal vein. The remainder of the left leg is negative for deep vein thrombosis. Imaging & Doppler Findings: Right Compressible Thrombus Flow Distal External Iliac Spontaneous/Phasic CFV Yes None Spontaneous/Phasic PFV Yes None FV Proximal Yes None Spontaneous/Phasic FV Mid Yes None FV Distal Yes None Popliteal Yes None Reflux Peroneal Yes None PTV Yes None Left Compress Thrombus Flow Distal External Iliac Spontaneous/Phasic CFV Yes None Spontaneous/Phasic PFV Yes None FV Proximal Yes None Spontaneous/Phasic FV Mid Yes None FV Distal Yes None Popliteal Partial Acute non-occlusive Spontaneous/Phasic Peroneal No Acute occlusive PTV No Acute occlusive Soleal No Acute occlusive [id number] Shannan Bolaños MD Final CONCLUSIONS: Right Lower Venous Insufficiency: There is reflux noted in the popliteal vein. Right Lower Venous: No evidence of acute deep vein thrombus visualized in the right lower extremity. Additional Findings; Cystic Structure noted in the popliteal fossa measuring 4.1 x 2.3 x 1.1 cm. Left Lower Venous: There is acute occlusive deep vein thrombosis visualized in the posterior tibial, peroneal and soleal veins. There is acute non-occlusive deep vein thrombosis visualized in the popliteal vein. The remainder of the left leg is negative for deep vein thrombosis. ECG 12 lead Result Date: 11/15/2024 Sinus rhythm with Premature supraventricular complexes and Premature ventricular complexes or Fusion complexes Inferior infarct (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-2024) Possible Anterior infarct , age undetermined Abnormal ECG When compared with ECG of 02-NOV-2024 15:09, Fusion complexes are now Present Premature ventricular complexes are now Present Premature supraventricular complexes are now Present Borderline criteria for Anterior infarct are now Present ST now depressed in Anterior leads Transthoracic Echo Complete Result Date: 11/14/2024 [place] [address] [id number], TRANSTHORACIC ECHOCARDIOGRAM REPORT Patient Name: UZMA Montero RENEE Reading Physician: [id number] Ambika Burris MD Study Date: 11/14/2024 Ordering Provider: [id number] BLANCA ROJO MRN/PID: [id number] Fellow: Nurse: Date of /Age: 10 1945 [employer] Set Up Operator: Song Borden RDCS years Gender Assigned at F Additional Staff: : Height: 149.86 cm Admit Date: Weight: 53.52 kg Admission Status: Outpatient BSA / BMI: 1.47 m2 / 23.83 Department Location: [facility] ED kg/m2 Blood Pressure: 133 /94 mmHg Study Type: TRANSTHORACIC ECHO (TTE) COMPLETE Diagnosis/ICD: Personal history of pulmonary embolism-Z86.711 CPT Codes: Echo Complete w Full Doppler-08843 Study Detail: The following Echo studies were performed: 2D, M-Mode, Doppler and color flow. PHYSICIAN INTERPRETATION: Left Ventricle: Left ventricular ejection fraction is normal by visual estimate at 65-70%. There are no regional wall motion abnormalities. The left ventricular cavity size is normal. There is mild increased septal and mildly increased posterior left ventricular wall thickness. There is left ventricular concentric remodeling. Left ventricular diastolic filling was not assessed. Left Atrium: The left atrial size is normal. Right Ventricle: The right ventricle is normal in size. There is low normal right ventricular systolic function. Right Atrium: The right atrial size is normal. Aortic Valve: The aortic valve is probably trileaflet. The aortic valve area by VTI is 2.43 cm with a peak velocity of 1.38 m/s. The peak and mean gradients are 6 mmHg and 4 mmHg, respectively, with a dimensionless index of 0.77. There is no evidence of aortic valve regurgitation. Mitral Valve: The mitral valve is normal in structure. There is trace mitral valve regurgitation. The E Vmax is 0.76 m/s. Tricuspid Valve: The tricuspid valve is structurally normal. There is mild tricuspid regurgitation. The Doppler estimated right ventricular systolic pressure (RVSP) is within normal limits at 28 mmHg. Pulmonic Valve: The pulmonic valve is not well visualized. The pulmonic valve regurgitation was not assessed. Pericardium: No pericardial effusion noted. Aorta: The aortic root is normal. Systemic Veins: The inferior vena cava appears normal in size, with IVC inspiratory collapse greater than 50%. CONCLUSIONS: 1. Left ventricular ejection fraction is normal by visual estimate at 65-70%. 2. There is low normal right ventricular systolic function. 3. The Doppler estimated RVSP is within normal limits at 28 mmHg. QUANTITATIVE DATA SUMMARY: 2D MEASUREMENTS: Normal Ranges: Ao Root d: 3.00 cm (2.0-3.7cm) LAs: 2.50 cm (2.7-4.0cm) IVSd: 0.98 cm (0.6-1.1cm) LVPWd: 1.06 cm (0.6-1.1cm) LVIDd: 3.64 cm (3.9-5.9cm) LVIDs: 2.21 cm LV Mass Index: 76.9 g/m2 LVEDV Index: 27.85 ml/m2 LV % FS 39.3 % LEFT ATRIUM: Normal Ranges: LA Vol A4C: 8.4 ml (22+/-6mL/m2) LA Vol A2C: 13.9 ml LA Vol BP: 11.4 ml LA Vol Index A4C: 5.7ml/m2 LA Vol Index A2C: 9.5 ml/m2 LA Vol Index BP: 7.8 ml/m2 LA Area A4C: 5.7 cm2 LA Area A2C: 7.8 cm2 LA Major [place] A4C: 3.3 cm LA Major [place] A2C: 3.7 cm LA Volume Index: 5.6 ml/m2 LA Vol A4C: 8.2 ml LA Vol A2C: 13.9 ml LA Vol Index BSA: 7.5 ml/m2 AORTA MEASUREMENTS: Normal Ranges: Asc Ao, d: 2.70 cm (2.1-3.4cm) LV SYSTOLIC FUNCTION: Normal Ranges: EF-A4C View: 60 % (>=55%) EF-A2C View: 60 % EF-Biplane: 60 % EF-Visual: 68 % LV EF Reported: 68 % LV DIASTOLIC FUNCTION: Normal Ranges: MV Peak E: 0.76 m/s (0.7-1.2 m/s) MV Peak A: 1.10 m/s (0.42-0.7 m/s) E/A Ratio: 0.69 (1.0-2.2) MITRAL VALVE: Normal Ranges: MV DT: 166 msec (150-240msec) AORTIC VALVE: Normal Ranges: AoV Vmax: 1.38 m/s (<=1.7m/s) AoV Peak P.6 mmHg (<20mmHg) AoV Mean P.0 mmHg (1.7-11.5mmHg) LVOT Max Fan: 1.14 m/s (<=1.1m/s) AoV VTI: 25.00 cm (18-25cm) LVOT VTI: 19.30 cm LVOT Diameter: 2.00 cm (1.8-2.4cm) AoV Area, VTI: 2.43 cm2 (2.5-5.5cm2) AoV Area,Vmax: 2.60 cm2 (2.5-4.5cm2) AoV Dimensionless Index: 0.77 RIGHT VENTRICLE: RV Basal 3.02 cm RV Mid 2.81 cm RV Major 6.4 cm TAPSE: 15.4 mm RV s' 0.16 m/s TRICUSPID VALVE/RVSP: Normal Ranges: Peak TR Velocity: 2.49 m/s Est. RA Pressure: 3 mmHg RV Syst Pressure: 28 mmHg (< 30mmHg) IVC Diam: 1.60 cm [id number] Ambika Burris MD Electronically signed on 11/14/2024 at 3:25:42 PM Final CONCLUSIONS: 1. Left ventricular ejection fraction is normal by visual estimate at 65-70%. 2. There is low normal right ventricular systolic function. 3. The Doppler estimated RVSP is within normal limits at [address] head wo IV contrast Result Date: 11/14/2024 Interpreted By: Nghia Tony, STUDY: CT HEAD WO IV CONTRAST; ; 11/14/2024 12:13 pm INDICATION: Signs/Symptoms:dysphagia. COMPARISON: None. ACCESSION NUMBER(S): [id number] ORDERING CLINICIAN: ARMOND HOFFMAN TECHNIQUE: Serial axial unenhanced CT images obtained of the head. Images reformatted in the coronal and sagittal projection. All CT examinations are performed with 1 or more of the following dose reduction techniques: Automated exposure control, adjustment of mA and/or kv according to patient's size, or use of iterative reconstruction techniques. FINDINGS: Ventricles, sulci, and cisterns are unremarkable. Hughes-white matter differentiation maintained. Mild periventricular white matter change nonspecific and likely related to chronic small-vessel ischemic change. No intra-axial or extra-axial blood or fluid collections are identified. Visualized osseous structures demonstrate unremarkable paranasal sinuses. Mastoid air cells demonstrate partial opacification of the bilateral maxillary sinuses. 1. No acute intracranial abnormality. 2. Mild periventricular white matter change nonspecific and likely related to chronic small-vessel ischemic change. MACRO: None Signed by: Nghia Tony 11/14/2024 12:52 PM Dictation workstation: [id number] CT angio chest for pulmonary embolism Result Date: 11/14/2024 Interpreted By: Michael Cerrato, STUDY: CT ANGIO CHEST FOR PULMONARY EMBOLISM; 11/14/2024 12:13 pm INDICATION: Signs/Symptoms:requested by [facility] team - known PE on CT chest with IV contrast done 2 days ago. COMPARISON: CT chest abdomen and pelvis 11/12/2024 ACCESSION NUMBER(S): [id number] ORDERING CLINICIAN: ARMOND HOFFMAN TECHNIQUE: Helical data acquisition of the chest was obtained after intravenous administration of 68 ML Omnipaque 350, as per PE protocol. Images were reformatted in coronal and sagittal planes. Axial and coronal maximum intensity projection (MIP) images were created and reviewed. FINDINGS: LOWER NECK, MEDIASTINUM /MINH, AND AXILLA: Posterior right thyroid lobe lesion with central low attenuation measuring 7 mm incompletely characterized No thoracic lymphadenopathy by CT criteria. Esophagus within normal limits. HEART AND VESSELS: Normal cardiac size. No evidence of pericardial effusion. RV/LV ratio 1.22 may reflect right heart strain. No coronary artery calcifications. The study is not optimized for evaluation of coronary arteries. Nonocclusive filling defects at the bifurcation of the distal left main pulmonary artery extending into apical upper lobe and basilar left lower lobe segmental and subsegmental pulmonary arteries. Nonocclusive filling defect within posterior basal right lower lobe segmental and subsegmental pulmonary arteries. Unchanged subcentimeter pulmonary nodules the largest a linear nodule measuring 5 mm in length. Main pulmonary artery and its branches are unremarkable in caliber. No thoracic aortic aneurysm. LUNGS AND AIRWAYS: Trachea and central airways are patent. No endobronchial lesion. Negative for pneumonia, pulmonary edema or mass. No pneumothorax or pleural effusion. Mild atelectasis and scarring. UPPER ABDOMEN: Visualized subdiaphragmatic structures demonstrate no acute abnormality. CHEST WALL AND OSSEOUS STRUCTURES: No acute osseous abnormality.Multilevel degenerative changes of the imaged spine. 1. Mild burden of nonocclusive acute bilateral pulmonary emboli unchanged. 2. Elevated RV/LV ratio may reflect right heart strain. 3. Additional chronic and/or ancillary findings detailed above. Findings communicated with ARMOND HOFFMAN via secure Naytev chat by Michael Cerrato MD at 12:48 pm 11/14/2024. MACRO: None Signed by: Michael Cerrato 11/14/2024 12:51 PM Dictation workstation: [id number] Scheduled medications Scheduled Medications[1] Continuous medications Continuous Medications[2] PRN medications PRN Medications[3] Assessment & Plan Personal history of pulmonary embolism 78-year-old female with history of Sleep apnea Hyperlipidemia Hypertension Hyponatremia Depression Presenting with DVT/PE Plan Telemetry Follow vitals, pulse ox Today CBC BMP On heparin drip, switch to DOAC, consider Eliquis Follow clinical progress Pain control with morphine IV as required Follow hematology outpatient Continue home medicines Atorvastatin, losartan, Lasix, potassium supplement, sodium chloride tablet, probiotics, MiraLAX, Cymbalta, mirtazapine Nutrition Supportive care, education counseling DVT prophylaxis addressed Addendum Upon discussion with family, patient has significant weight loss at least 10 pounds in 2 months and decreasing appetite. Normally she is fairly active and healthy but unable to maintain her daily activities of living lately and being worked up by PCP for possible occult malignancy which is the reason why she had CT chest abdomen pelvis as outpatient that revealed possible PE confirmed later on with CTA PE protocol. Advised to follow PCP and hematology oncology upon discharge to continue workup in effort to find underlying cause of her decline in last 2 months and then treat accordingly. Suzanne Steward MD [1] atorvastatin, 20 mg, oral, Daily DULoxetine, 30 mg, oral, Daily furosemide, 20 mg, oral, BID lactobacillus acidophilus, 1 capsule, oral, Daily losartan, 25 mg, oral, Daily mirtazapine, 15 mg, oral, Nightly polyethylene glycol, 17 g, oral, Daily potassium chloride, 20 mEq, oral, Daily potassium chloride CR, 20 mEq, oral, Once sodium chloride, 2,000 mg, oral, BID [2] heparin, 0-4,500 Units/hr, Last Rate: 800 Units/hr (11/15/24 1321) [3] PRN medications: acetaminophen OR [DISCONTINUED] acetaminophen OR [DISCONTINUED] acetaminophen, heparin, ipratropium-albuteroL, morphine, morphine, ondansetron ODT OR ondansetron, zolpidem Occupational Therapy Evaluation Patient Name: Uzma Duran Today's Date: 11/15/2024 Time Calculation Start Time: 1120 Stop Time: 1137 Time Calculation (min): 17 min 319/319-A Assessment IP OT Assessment OT Assessment: pt is at baseline for ADLs. no OT intervention recommended at this time. Prognosis: Excellent Barriers to Discharge Home: No anticipated barriers Evaluation/Treatment Tolerance: Patient tolerated treatment well End of Session Communication: Bedside nurse End of Session Patient Position: Up in chair, Alarm on (call light in reach) Plan: No Skilled OT: At baseline function OT Discharge Recommendations: No further acute OT, No OT needed after discharge OT Recommended Transfer Status: Stand by assist OT - OK to Discharge: Yes (once medically stable) Subjective Current Problem: 1. Acute pulmonary embolism without acute cor pulmonale, unspecified pulmonary embolism type (Multi) 2. Personal history of pulmonary embolism Transthoracic Echo Complete 3. Shortness of breath Vascular US lower extremity venous duplex bilateral General: General Reason for Referral: impaired mobility Referred By: PT/OT Nichelle 11/15 Past Medical History Relevant to Rehab: MARCY, HLD, HTN Family/Caregiver Present: Yes Caregiver Feedback: present- supportive Co-Treatment: PT Co-Treatment Reason: Maximize pt/staff safety Prior to Session Communication: Bedside nurse Patient Position Received: Bed, 3 rail up, Alarm on General Comment: Pt to ED 11/14 from doctors office with concern for PE. 11/14: Vascular US LE venous duplex (+) acute L DVT, CTA Chest (+) B PE, CT head (-) Precautions: Medical Precautions: Fall precautions Vital Signs: Vital Signs Comment: no concerns Pain: Pain Assessment Pain Assessment: 0-10 0-10 (Numeric) Pain Score: 0 - No pain Objective Cognition: Overall Cognitive Status: Within Functional Limits Orientation Level: Oriented X4 Home Living: Type of Home: House Lives With: Spouse Home Layout: One level, Laundry in basement Home Access: Stairs to enter without rails Entrance Stairs-Number of Steps: 2 Prior Function: ADL Assistance: Needs assistance (pt's has been assisting with socks, shoes and starting pants since pt's most recent fall due to hip pain) Prior Function Comments: Per pt, ambulates mod I with rollator. Independnet with ADLs and IADLs. assists PRN. One fall reported in the last 3 months. IADL History: ADL: Eating Assistance: Independent Grooming Assistance: Independent Bathing Assistance: Stand by UE Dressing Assistance: Independent LE Dressing Assistance: Minimal Toileting Assistance with Device: Modified independent Activity Tolerance: Endurance: Endurance does not limit participation in activity Bed Mobility/Transfers: Bed Mobility Bed Mobility: (Supine > sit EOB: Min A, HOB elevated to 30 deg. Pt able to bring B LE off bed, needed assist advancing trunk) Transfers Transfer: (Sit <> stand x2: SBA + denia WW, gait belt, demonstrated proper hand placement.) Ambulation/Gait Training: Sitting Balance: Static Sitting Balance Static Sitting-Level of Assistance: Independent Dynamic Sitting Balance Dynamic Sitting-Level of Assistance: Independent Standing Balance: Static Standing Balance Static Standing-Level of Assistance: Independent Vision: Vision - Basic Assessment Current Vision: No visual deficits and Sensation: Light Touch: No apparent deficits Strength: Strength Comments: BUE WNL Coordination: Movements are Fluid and Coordinated: Yes Outcome Measures: [facility] Daily Activity Putting on and taking off regular lower body clothing: A little Bathing (including washing, rinsing, drying): A little Putting on and taking off regular upper body clothing: None Toileting, which includes using toilet, bedpan or urinal: None Taking care of personal grooming such as brushing teeth: None Eating Meals: None Daily Activity - Total Score: 22 EDUCATION: education on use of FWW versus rollator if hip pain is high 11/15/24 1301 Discharge Planning Living Arrangements Spouse/significant other;Children (daughter Muriel) Support Systems Spouse/significant other Assistance Needed Needs assistance with bathing, cooking. helps. Type of Residence Private residence Number of Stairs to Enter Residence 1 Number of Stairs Within Residence 12 Who is requesting discharge planning? Provider Home or Post Acute Services (Would like [facility] PT/OT out patient) Expected Discharge Disposition Home Stroke Family Assessment Stroke Family Assessment Needed No Intensity of Service Intensity of Service 0-30 min TCC reviewed pt. chart and met with pt. and at bedside to review plan. Pt answered above questions. Pharmacy [facility]. Dr Cyndi Horn is her pcp. Patients plan is to return home when ready. [facility]. She feels that since it has been harder to get around. Her has to help her shower. She was recently having PT through outpatient department, which ended two weeks ago. Care transitions team to follow. RUPESH LAW, TCC Physical Therapy Physical Therapy Evaluation Patient Name: Uzma Duran Department: [facility] Room: [address] [place] [address] Today's Date: 11/15/2024 Time Calculation Start Time: 1119 Stop Time: 1137 Time Calculation (min): 18 min Assessment/Plan PT Assessment PT Assessment Results: Decreased strength, Decreased range of motion, Decreased mobility, Impaired balance, Pain Rehab Prognosis: Good Barriers to Discharge Home: Physical needs Physical Needs: Intermittent mobility assistance needed, Intermittent ADL assistance needed, High falls risk due to function or environment Evaluation/Treatment Tolerance: Patient tolerated treatment well Medical Staff Made Aware: Yes Strengths: Attitude of self, Support of Caregivers, Rehab experience Barriers to Participation: Comorbidities End of Session Communication: Bedside nurse Assessment Comment: Pt would benefit from continued therapy to improve strength, ROM, and functional mobility. End of Session Patient Position: Up in chair, Alarm on (Call button within reach) IP OR SWING BED PT PLAN Inpatient or Swing Bed: Inpatient PT Plan Treatment/Interventions: Bed mobility, Transfer training, Gait training, Stair training, Strengthening, Therapeutic exercise, Home exercise program PT Plan: Ongoing PT PT Frequency for Current Admission: 4 times per week during this acute inpatient hospitalization PT Discharge Recommendations: Low intensity level of continued care PT Recommended Transfer Status: Assist x1, Total assist PT - OK to Discharge: Yes (Once medically appropriate) Subjective PT Visit Info: PT Received On: 11/15/24 General Visit Information: General Reason for Referral: impaired mobility Referred By: PT/OT Nichelle 11/15 Past Medical History Relevant to Rehab: MARCY, HLD, HTN Family/Caregiver Present: Yes Caregiver Feedback: present- supportive Co-Treatment: OT Co-Treatment Reason: Maximize pt/staff safety Prior to Session Communication: Bedside nurse Patient Position Received: Bed, 3 rail up, Alarm on General Comment: Pt to ED 11/14 from doctors office with concern for PE. 11/14: Vascular US LE venous duplex (+) acute L DVT, CTA Chest (+) B PE, CT head (-) Home Living: Home Living Type of Home: House Lives With: Spouse Home Adaptive Equipment: (WW and rollator) Home Layout: One level, Laundry in basement Home Access: Stairs to enter without rails Entrance Stairs-Number of Steps: 2 Prior Level of Function: Prior Function Per Pt/Caregiver Report Prior Function Comments: Per pt, ambulates mod I with rollator. Independnet with ADLs and IADLs. assists PRN. One fall reported in the last 3 months. Precautions: Precautions Medical Precautions: Fall precautions Date/Time Vitals Session Patient Position Pulse Resp SpO2 BP MAP (mmHg) 11/15/24 1151 -- -- -- -- 95 % -- -- Objective Pain: Pain Assessment Pain Assessment: 0-10 0-10 (Numeric) Pain Score: 0 - No pain Cognition: Cognition Orientation Level: Oriented X4 General Assessments: General Observation General Observation: Pt supine in bed with HOB elevated to 30 deg. in room. Pt has IV. Pt educated on PT POC and consents to PT evaluation Activity Tolerance Endurance: Endurance does not limit participation in activity Sensation Light Touch: No apparent deficits Static Sitting Balance Static Sitting-Comment/Number of Minutes: SBA + B UE/LE support Dynamic Sitting Balance Dynamic Sitting-Comments: SBA + B UE/LE support during strength assessment Static Standing Balance Static Standing-Comment/Number of Minutes: SBA + WW Dynamic Standing Balance Dynamic Standing-Comments: SBA + WW During ambulation Functional Assessments: Bed Mobility Bed Mobility: (Supine > sit EOB: Min A, HOB elevated to 30 deg. Pt able to bring B LE off bed, needed assist advancing trunk) Transfers Transfer: (Sit <> stand x2: SBA + denia WW, gait belt, demonstrated proper hand placement.) Ambulation/Gait Training Ambulation/Gait Training Performed: (70ft, WW, gait belt, SBA. Decreased speed and step length. Decreased heel strike B.) Extremity/Trunk Assessments: ROM RUE : Within Functional Limits LUE: Within Functional Limits RLE : Within Functional Limits LLE : Within Functional Limits Strength Strength Comments: B hip flexion strength: 4/5, B knee extension strength: 5/5, B DF strength: 5/5 Outcome Measures: [facility] Basic Mobility Turning from your back to your side while in a flat bed without using bedrails: A little Moving from lying on your back to sitting on the side of a flat bed without using bedrails: A little Moving to and from bed to chair (including a wheelchair): A little Standing up from a chair using your arms (e.g. wheelchair or bedside chair): A little To walk in hospital room: A little Climbing 3-5 steps with railing: A little Basic Mobility - Total Score: 18 Encounter Problems Encounter Problems (Active) PT Problem Pt will complete supine <> sit bed mobility from flat bed with [place] (Progressing) Start: 11/15/24 Expected End: 11/29/24 Pt will demonstrate sit to stand and bed/chair transfers with WW + Mod I (Progressing) Start: 11/15/24 Expected End: 11/29/24 Pt. will ambulate 100ft with WW + Mod I (Progressing) Start: 11/15/24 Expected End: 11/29/24 Pt will ascend/descend 2 stairs w/ 0 HR and independence (Not Progressing) Start: 11/15/24 Expected End: 11/29/24 Pt will complete B LE strengthening HEP with independence (Not Progressing) Start: 11/15/24 Expected End: 11/29/24 Education Documentation Mobility Training, taught by Marry Lux PT at 11/15/2024 12:44 PM. Learner: Patient Readiness: Acceptance Method: Explanation Response: Verbalizes Understanding, Demonstrated Understanding Emergency Medicine Transition of Care Note. I received Uzma Duran in signout from Dr. Alarcon. Please see the previous ED provider note for all HPI, PE and MDM up to the time of signout at 9:30 AM. This is in addition to the primary record. In brief Uzma Duran is an 78 y.o. female presenting for Chief Complaint Patient presents with pulmonary embolism Pt was called by Dr and told she has bilateral PE, pt denies SOB/chest pain. Pt reports bilateral leg and hip pain, left worse than right. At the time of signout we were awaiting: Laboratory and radiographic findings Medical Decision Making Patient was endorsed to me from the overnight physician. Please see their notes for prior history and physical exam details. Lower extremity duplex reveals extensive left leg DVT. The patient was started on heparin here in the ER. I did consult the [facility] team who agreed with heparinization and wished for the patient have a formal CTA of her chest as well as a stat 2D echocardiogram. There is no evidence of heart strain therefore they agree that the patient is appropriate to be admitted here to our facility. Patient case was discussed with the hospitalist who agrees and accepted the patient to their service Critical care time for this patient excluding billable procedures is 42 minutes secondary to multiple repeat physical examinations, chart review, interpretation of radiographic studies, and expert consultation. Final diagnoses: [Z86.711] Personal history of pulmonary embolism Procedure Procedures Armond Hoffman DO documented in this encounter [facility] Work Phone: 11-15-2024 Consult note Associated Order (s): IP CONSULT TO NUTRITION SERVICES Nutrition Initial Assessment: Nutrition Assessment Reason for Assessment: Admission nursing screening (weight loss and decreased PO intake). Patient is a 78 y.o. female presenting with personal history of pulmonary embolism. Medical History[1] Nutrition History: Energy Intake: Poor < 50 % Food and Nutrient History: Patient seen in chair ( in room). Patient reported decreased appetite since August and decreased ability to taste food. She reported disliking the mouthfeel of food and spitting it out often. She stated that she often forces herself to swallow certain foods, but is able to tolerate yogurt, cream of wheat, ensure, boost, and other soft and bite-sized foods. During encounter, she was forcing herself to consume the chopped salad ordered for lunch. Patient stated that she has lost 12lb since August unintentionally and is drinking 2 ensures or boosts per day for kcals and protein. She also mentioned allowing herself to consume sweets since she seems to tolerate them and likes the taste and mouthfeel. Patient endorsed abdominal pain and constipation. She is able to chew and swallow. NKFA. Patient also mentioned enjoying light movement when feeling well. Anthropometrics: Height: 149.9 cm (4' 11) Weight: 53.7 kg (118 lb 6.2 oz) BMI (Calculated): 23.9 IBW/kg (Dietitian Calculated): (90-95) Weight History: Wt Readings from Last 10 Encounters: 11/14/24 53.7 kg (118 lb 6.2 oz) 11/08/24 53.3 kg (117 lb 6.4 oz) 11/05/24 52.6 kg (116 lb) 11/02/24 53.5 kg (118 lb) 11/01/24 53.5 kg (118 lb) 10/29/24 53.1 kg (117 lb) 10/17/24 53.5 kg (118 lb) 09/23/24 57.5 kg (126 lb 12.2 oz) 09/19/24 59 kg (130 lb) 09/10/24 58.5 kg (129 lb) Weight Change %: Weight History / % Weight Change: 12lb wt loss over 1mo + 3 weeks (9.9%) d/t decreased appetite and PO intake. Significant Weight Loss: Yes Interpretation of Weight Loss: >5% in 1 month Nutrition Focused Physical Exam Findings: Subcutaneous Fat Loss: Orbital Fat Pads: Mild-Moderate (slight dark circles and slight hollowing) Buccal Fat Pads: Mild-Moderate (flat cheeks, minimal bounce) Triceps: Defer Ribs: Defer Muscle Wasting: Temporalis: Mild-Moderate (slight depression) Pectoralis (Clavicular Region): Defer Deltoid/Trapezius: Defer Interosseous: Mild-Moderate (slightly depressed area between thumb and forefinger) Trapezius/Infraspinatus/Supraspinat us (Scapular Region): Defer Quadriceps: Defer Gastrocnemius: Defer Edema: Edema: none Physical Findings: Deferred Nutrition Significant Labs: CBC Trend: Results from last 7 days Lab Units 11/15/24 0431 11/14/24 0927 WBC AUTO x10*3/uL 13.1* 13.7* RBC AUTO x10*6/uL 3.63* 3.96* HEMOGLOBIN g/dL 11.6* 12.6 HEMATOCRIT % 34.8* 37.5 MCV fL 96 95 PLATELETS AUTO x10*3/uL 253 286 , BMP Trend: Results from last 7 days Lab Units 11/15/24 0431 11/14/24 0927 GLUCOSE mg/dL 108* 102* CALCIUM mg/dL 8.6 8.9 SODIUM mmol/L 132* 134* POTASSIUM mmol/L 3.3* 3.6 CO2 mmol/L 26 26 CHLORIDE mmol/L 98 99 BUN mg/dL 13 19 CREATININE mg/dL 0.53 0.63 , A1C: Lab Results Component Value Date HGBA1C 5.3 09/30/2024 Nutrition Specific Medications: Scheduled medications Scheduled Medications[2] Continuous medications Continuous Medications[3] PRN medications PRN Medications[4] I/O: Last BM Date: 11/15/24; Dietary Orders (From admission, onward) Start Ordered 11/15/24 1611 Oral nutritional supplements Until discontinued Question Answer Comment Deliver with All meals Select supplement: Ensure Plus High Protein 11/15/24 1610 11/14/24 1650 May Participate in Room Service ( ROOM SERVICE MAY PARTICIPATE) Once Question: . Answer: Yes 11/14/24 1649 11/14/24 1630 Adult diet Cardiac; 70 gm fat; 2 - 3 grams Sodium Diet effective now Question Answer Comment Diet type Cardiac Fat restriction: 70 gm fat Sodium restriction: 2 - 3 grams Sodium 11/14/24 1629 Estimated Needs: Total Energy Estimated Needs in 24 hours (kCal): 1288 kCal Method for Estimating Needs: 24 kcal/kg (CHF, reduced EF, malnutrition) Total Protein Estimated Needs in 24 Hours (g): (64-76) Method for Estimating 24 Hour Protein Needs: 1.2-1.4 g/kg (CHF) Total Fluid Estimated Needs in 24 Hours (mL): 1288 mL Method for Estimating 24 Hour Fluid Needs: 1ml/kcal or per MD Patient on Order Fluid Restriction: No Nutrition Diagnosis Malnutrition Diagnosis Patient has Malnutrition Diagnosis: Yes Malnutrition Diagnosis: Severe malnutrition related to chronic disease or condition Related to: decreased appetite and PO intake for the past 6 months. As Evidenced by: Weight loss >5% in 1 month and NFPE (mild subcutaneous fat loss in orbital and buccal area & mild muscle wasting in temporalis & interosseous areas). Nutrition Interventions/Recommendations Nutrition Recommendations: Individualized Nutrition Prescription Provided for : Continue Cardiac diet. Send Ensure Plus TID for added calories and protein. Nutrition Interventions/Goals: Goal: Ensure plus high protein (350 kcals and 20g protein per 8 fl oz) Goal: Attend care rounds daily Education Documentation No documentation found. Nutrition Monitoring and Evaluation Estimated Energy Intake: Energy intake 50 -75% of estimated energy needs Intake / Amount of food: Consumes at least 50% or more of meals/snacks/supplements Additional Plans: Consume ONS if unable to consume meals and/or when feeling hungry. Body Weight: Body weight - Maintain stable weight Adipose Finding: Loss of subcutaneous fat Criteria: mild buccal & orbital Digestive System Finding: Abdominal pain, Constipation Goal Status: New goal(s) identified Time Spent (min): 60 minutes 11/15/24 at 5:08 PM - HIRA GUTIERREZ RDN, AILYN [1] Past Medical History: Diagnosis Date Hyperlipidemia, unspecified 02/03/2022 Hyperlipidemia Mallet finger, acquired 05/31/2022 Midline cystocele 05/31/2022 Obstructive sleep apnea (adult) (pediatric) 02/03/2022 Severe obstructive sleep apnea Other abnormal glucose 02/03/2022 Elevated glucose Other specified personal risk factors, not elsewhere classified 02/04/2020 10 year risk of MT or stroke 7.5% or greater Rectocele, female 05/31/2022 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 [2] atorvastatin, 20 mg, oral, Daily DULoxetine, 30 mg, oral, Daily furosemide, 20 mg, oral, BID lactobacillus acidophilus, 1 capsule, oral, Daily losartan, 25 mg, oral, Daily mirtazapine, 15 mg, oral, Nightly polyethylene glycol, 17 g, oral, Daily potassium chloride, 20 mEq, oral, Daily potassium chloride CR, 20 mEq, oral, Once sodium chloride, 2,000 mg, oral, BID [3] heparin, 0-4,500 Units/hr, Last Rate: 800 Units/hr (11/15/24 1543) [4] PRN medications: acetaminophen OR [DISCONTINUED] acetaminophen OR [DISCONTINUED] acetaminophen, heparin, ipratropium-albuteroL, morphine, morphine, ondansetron ODT OR ondansetron, zolpidem T [facility] 11-15-2024 Consult note Associated Order (s): IP CONSULT TO NUTRITION SERVICES Nutrition Initial Assessment: Nutrition Assessment Reason for Assessment: Admission nursing screening (weight loss and decreased PO intake). Patient is a 78 y.o. female presenting with personal history of pulmonary embolism. Medical History[1] Nutrition History: Energy Intake: Poor < 50 % Food and Nutrient History: Patient seen in chair ( in room). Patient reported decreased appetite since August and decreased ability to taste food. She reported disliking the mouthfeel of food and spitting it out often. She stated that she often forces herself to swallow certain foods, but is able to tolerate yogurt, cream of wheat, ensure, boost, and other soft and bite-sized foods. During encounter, she was forcing herself to consume the chopped salad ordered for lunch. Patient stated that she has lost 12lb since August unintentionally and is drinking 2 ensures or boosts per day for kcals and protein. She also mentioned allowing herself to consume sweets since she seems to tolerate them and likes the taste and mouthfeel. Patient endorsed abdominal pain and constipation. She is able to chew and swallow. NKFA. Patient also mentioned enjoying light movement when feeling well. Anthropometrics: Height: 149.9 cm (4' 11) Weight: 53.7 kg (118 lb 6.2 oz) BMI (Calculated): 23.9 IBW/kg (Dietitian Calculated): (90-95) Weight History: Wt Readings from Last 10 Encounters: 11/14/24 53.7 kg (118 lb 6.2 oz) 11/08/24 53.3 kg (117 lb 6.4 oz) 11/05/24 52.6 kg (116 lb) 11/02/24 53.5 kg (118 lb) 11/01/24 53.5 kg (118 lb) 10/29/24 53.1 kg (117 lb) 10/17/24 53.5 kg (118 lb) 09/23/24 57.5 kg (126 lb 12.2 oz) 09/19/24 59 kg (130 lb) 09/10/24 58.5 kg (129 lb) Weight Change %: Weight History / % Weight Change: 12lb wt loss over 1mo + 3 weeks (9.9%) d/t decreased appetite and PO intake. Significant Weight Loss: Yes Interpretation of Weight Loss: >5% in 1 month Nutrition Focused Physical Exam Findings: Subcutaneous Fat Loss: Orbital Fat Pads: Mild-Moderate (slight dark circles and slight hollowing) Buccal Fat Pads: Mild-Moderate (flat cheeks, minimal bounce) Triceps: Defer Ribs: Defer Muscle Wasting: Temporalis: Mild-Moderate (slight depression) Pectoralis (Clavicular Region): Defer Deltoid/Trapezius: Defer Interosseous: Mild-Moderate (slightly depressed area between thumb and forefinger) Trapezius/Infraspinatus/Supraspinat us (Scapular Region): Defer Quadriceps: Defer Gastrocnemius: Defer Edema: Edema: none Physical Findings: Deferred Nutrition Significant Labs: CBC Trend: Results from last 7 days Lab Units 11/15/24 0431 11/14/24 0927 WBC AUTO x10*3/uL 13.1* 13.7* RBC AUTO x10*6/uL 3.63* 3.96* HEMOGLOBIN g/dL 11.6* 12.6 HEMATOCRIT % 34.8* 37.5 MCV fL 96 95 PLATELETS AUTO x10*3/uL 253 286 , BMP Trend: Results from last 7 days Lab Units 11/15/24 0431 11/14/24 0927 GLUCOSE mg/dL 108* 102* CALCIUM mg/dL 8.6 8.9 SODIUM mmol/L 132* 134* POTASSIUM mmol/L 3.3* 3.6 CO2 mmol/L 26 26 CHLORIDE mmol/L 98 99 BUN mg/dL 13 19 CREATININE mg/dL 0.53 0.63 , A1C: Lab Results Component Value Date HGBA1C 5.3 09/30/2024 Nutrition Specific Medications: Scheduled medications Scheduled Medications[2] Continuous medications Continuous Medications[3] PRN medications PRN Medications[4] I/O: Last BM Date: 11/15/24; Dietary Orders (From admission, onward) Start Ordered 11/15/24 1611 Oral nutritional supplements Until discontinued Question Answer Comment Deliver with All meals Select supplement: Ensure Plus High Protein 11/15/24 1610 11/14/24 1650 May Participate in Room Service ( ROOM SERVICE MAY PARTICIPATE) Once Question: . Answer: Yes 11/14/24 1649 11/14/24 1630 Adult diet Cardiac; 70 gm fat; 2 - 3 grams Sodium Diet effective now Question Answer Comment Diet type Cardiac Fat restriction: 70 gm fat Sodium restriction: 2 - 3 grams Sodium 11/14/24 1629 Estimated Needs: Total Energy Estimated Needs in 24 hours (kCal): 1288 kCal Method for Estimating Needs: 24 kcal/kg (CHF, reduced EF, malnutrition) Total Protein Estimated Needs in 24 Hours (g): (64-76) Method for Estimating 24 Hour Protein Needs: 1.2-1.4 g/kg (CHF) Total Fluid Estimated Needs in 24 Hours (mL): 1288 mL Method for Estimating 24 Hour Fluid Needs: 1ml/kcal or per MD Patient on Order Fluid Restriction: No Nutrition Diagnosis Malnutrition Diagnosis Patient has Malnutrition Diagnosis: Yes Malnutrition Diagnosis: Severe malnutrition related to chronic disease or condition Related to: decreased appetite and PO intake for the past 6 months. As Evidenced by: Weight loss >5% in 1 month and NFPE (mild subcutaneous fat loss in orbital and buccal area & mild muscle wasting in temporalis & interosseous areas). Nutrition Interventions/Recommendations Nutrition Recommendations: Individualized Nutrition Prescription Provided for : Continue Cardiac diet. Send Ensure Plus TID for added calories and protein. Nutrition Interventions/Goals: Goal: Ensure plus high protein (350 kcals and 20g protein per 8 fl oz) Goal: Attend care rounds daily Education Documentation No documentation found. Nutrition Monitoring and Evaluation Estimated Energy Intake: Energy intake 50 -75% of estimated energy needs Intake / Amount of food: Consumes at least 50% or more of meals/snacks/supplements Additional Plans: Consume ONS if unable to consume meals and/or when feeling hungry. Body Weight: Body weight - Maintain stable weight Adipose Finding: Loss of subcutaneous fat Criteria: mild buccal & orbital Digestive System Finding: Abdominal pain, Constipation Goal Status: New goal(s) identified Time Spent (min): 60 minutes 11/15/24 at 5:08 PM - HIRA GUTIERREZ RDN, LD [1] Past Medical History: Diagnosis Date Hyperlipidemia, unspecified 02/03/2022 Hyperlipidemia Mallet finger, acquired 05/31/2022 Midline cystocele 05/31/2022 Obstructive sleep apnea (adult) (pediatric) 02/03/2022 Severe obstructive sleep apnea Other abnormal glucose 02/03/2022 Elevated glucose Other specified personal risk factors, not elsewhere classified 02/04/2020 10 year risk of MT or stroke 7.5% or greater Rectocele, female 05/31/2022 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 [2] atorvastatin, 20 mg, oral, Daily DULoxetine, 30 mg, oral, Daily furosemide, 20 mg, oral, BID lactobacillus acidophilus, 1 capsule, oral, Daily losartan, 25 mg, oral, Daily mirtazapine, 15 mg, oral, Nightly polyethylene glycol, 17 g, oral, Daily potassium chloride, 20 mEq, oral, Daily potassium chloride CR, 20 mEq, oral, Once sodium chloride, 2,000 mg, oral, BID [3] heparin, 0-4,500 Units/hr, Last Rate: 800 Units/hr (11/15/24 1543) [4] PRN medications: acetaminophen OR [DISCONTINUED] acetaminophen OR [DISCONTINUED] acetaminophen, heparin, ipratropium-albuteroL, morphine, morphine, ondansetron ODT OR ondansetron, zolpidem documented in this encounter [facility] Work Phone: 11-15-2024 Plan of care note Problem: Pain - Adult Goal: Verbalizes/displays adequate comfort level or baseline comfort level Outcome: Progressing Problem: Safety - Adult Goal: Free from fall injury Outcome: Progressing Problem: Discharge Planning Goal: Discharge to home or other facility with appropriate resources Outcome: Progressing Problem: Chronic Conditions and Co-morbidities Goal: Patient's chronic conditions and co-morbidity symptoms are monitored and maintained or improved Outcome: Progressing Problem: Nutrition Goal: Nutrient intake appropriate for maintaining nutritional needs Outcome: Progressing [facility] 11-15-2024 Plan of care note The patient's goals for the shift include The clinical goals for the shift include rest, titrate heparin gtt as ordered Problem: Pain - Adult Goal: Verbalizes/displays adequate comfort level or baseline comfort level Outcome: Progressing Problem: Safety - Adult Goal: Free from fall injury Outcome: Progressing Problem: Discharge Planning Goal: Discharge to home or other facility with appropriate resources Outcome: Progressing Problem: Chronic Conditions and Co-morbidities Goal: Patient's chronic conditions and co-morbidity symptoms are monitored and maintained or improved Outcome: Progressing Problem: Nutrition Goal: Nutrient intake appropriate for maintaining nutritional needs Outcome: Progressing Problem: Skin Goal: Promote/optimize nutrition Outcome: Progressing Flowsheets (Taken 11/15/2024 0109) Promote/optimize nutrition: Consume > 50% meals/supplements [facility] Work Phone: 11-14-2024 Nurse Note Patient stood with one assist and pivoted to [facility] 11-14-2024 Nurse Note Patient stood with one assist and pivoted to [facility] documented in this encounter [facility] Work Phone: 11-14-2024 History and physical note History Of Present Illness Uzma Duran is a 78 y.o. female presenting with abnormal report on outpatient CT scan of chest abdomen pelvis performed to evaluate pain/occult malignancy which started 2 months ago after a long road trip considering possible sciatica. Patient denies any bowel or bladder dysfunction. No fever chills nausea vomiting diarrhea or bleeding. No skin rash or joint pains. She is experiencing left lower extremity pain intermittently. However no chest pain or shortness of breath or palpitations or syncope. She has been noticing bilateral leg pain hip pain left worse than right. Found to have a left lower extremity DVT. On heparin drip. Vascular team recommended anticoagulation. No strain on echocardiogram. EKG sinus rhythm. No immobility or alarming weight loss but some weight loss but overall maintains healthy active lifestyle. No malignancy. No URI symptoms. No headache neck pain focal weakness. No flank pain hematuria or dysuria. No abdominal pain nausea vomiting diarrhea. CTA chest showing acute bilateral pulmonary emboli. Concern of right heart strain on CTA chest. Echo showing EF 65 to 70%. Low normal right ventricular systolic function Past Medical History Medical History[1] Surgical History Surgical History[2] Sleep apnea Hyperlipidemia Hypertension Hyponatremia Depression Social History She reports that she has quit smoking. Her smoking use included cigarettes. She has never used smokeless tobacco. She reports that she does not currently use alcohol. She reports that she does not use drugs. Family History Family History[3] Allergies Amlodipine and Penicillins Review of Systems All other 12 point review of systems negative except HPI Physical Exam General Appearance: AAO x 3, Skin: skin color pink, warm, and dry; no suspicious rashes or lesions Eyes : PERRL, EOM's intact ENT: mucous membranes pink and moist Neck: normocephalic Respiratory: lungs clear to auscultation anteriorly; no wheezing, rhonchi, or crackles. Heart: regular rate and rhythm. Abdomen: Nondistended, positive bowel sounds x4, soft, nontender Extremities: no edema Peripheral pulses: normal x4 extremities Neuro: alert, coherent and conversant, no focal motor deficits Last Recorded Vitals Blood pressure 114/69, pulse 86, temperature 36.4 C (97.5 F), temperature source Temporal, resp. rate 22, height 1.499 m (4' 11), weight 53.7 kg (118 lb 6.2 oz), SpO2 97%. Relevant Results Results for orders placed or performed during the hospital encounter of 11/14/24 (from the past 24 hours) CBC and Auto Differential Result Value Ref Range WBC 13.7 (H) 4.4 - 11.3 x10*3/uL nRBC 0.0 0.0 - 0.0 /100 WBCs RBC 3.96 (L) 4.00 - 5.20 x10*6/uL Hemoglobin 12.6 12.0 - 16.0 g/dL Hematocrit 37.5 36.0 - 46.0 % MCV 95 80 - 100 fL MCH 31.8 26.0 - 34.0 pg MCHC 33.6 32.0 - 36.0 g/dL RDW 13.6 11.5 - 14.5 % Platelets 286 150 - 450 x10*3/uL Neutrophils % 85.0 40.0 - 80.0 % Immature Granulocytes %, Automated 1.0 (H) 0.0 - 0.9 % Lymphocytes % 6.9 13.0 - 44.0 % Monocytes % 5.9 2.0 - 10.0 % Eosinophils % 0.7 0.0 - 6.0 % Basophils % 0.5 0.0 - 2.0 % Neutrophils Absolute 11.60 (H) 1.60 - 5.50 x10*3/uL Immature Granulocytes Absolute, Automated 0.14 0.00 - 0.50 x10*3/uL Lymphocytes Absolute 0.94 0.80 - 3.00 x10*3/uL Monocytes Absolute 0.81 (H) 0.05 - 0.80 x10*3/uL Eosinophils Absolute 0.09 0.00 - 0.40 x10*3/uL Basophils Absolute 0.07 0.00 - 0.10 x10*3/uL Comprehensive metabolic panel Result Value Ref Range Glucose 102 (H) 74 - 99 mg/dL Sodium 134 (L) 136 - 145 mmol/L Potassium 3.6 3.5 - 5.3 mmol/L Chloride 99 98 - 107 mmol/L Bicarbonate 26 21 - 32 mmol/L Anion Gap 13 10 - 20 mmol/L Urea Nitrogen 19 6 - 23 mg/dL Creatinine 0.63 0.50 - 1.05 mg/dL eGFR >90 >60 mL/min/1.73m*2 Calcium 8.9 8.6 - 10.3 mg/dL Albumin 3.2 (L) 3.4 - 5.0 g/dL Alkaline Phosphatase 80 33 - 136 U/L Total Protein 6.5 6.4 - 8.2 g/dL AST 22 9 - 39 U/L Bilirubin, Total 0.6 0.0 - 1.2 mg/dL ALT 19 7 - 45 U/L Troponin I, High Sensitivity Result Value Ref Range Troponin I, High Sensitivity 9 0 - 13 ng/L B-Type Natriuretic Peptide Result Value Ref Range BNP 55 0 - 99 pg/mL D-Dimer, VTE Exclusion Result Value Ref Range D-Dimer, Quantitative VTE Exclusion 1,761 (H) <=500 ng/mL FEU Protime-INR Result Value Ref Range Protime 12.5 (H) 9.8 - 12.4 seconds INR 1.1 0.9 - 1.1 APTT Result Value Ref Range aPTT 24 (L) 26 - 36 seconds SST TOP Result Value Ref Range Extra Tube Hold for add-ons. Lactate Result Value Ref Range Lactate 1.0 0.4 - 2.0 mmol/L Troponin I, High Sensitivity Result Value Ref Range Troponin I, High Sensitivity 9 0 - 13 ng/L Heparin Assay, UFH Result Value Ref Range Heparin Unfractionated 1.1 (HH) See Comment Below for Therapeutic Ranges IU/mL Transthoracic Echo Complete Result Value Ref Range LA vol index A/L 7.8 ml/m2 AV pk fan 1.38 m/s AV mn grad 4 mmHg LVOT diam 2.00 cm LV Biplane EF 60 % LV EF 68 % MV E/A ratio 0.69 Tricuspid annular plane systolic excursion 1.5 cm RV free wall pk S' 15.90 cm/s LVIDd 3.64 cm RVSP 28 mmHg Aortic Valve Area by Continuity of VTI 2.43 cm2 Aortic Valve Area by Continuity of Peak Velocity 2.60 cm2 AV pk grad 8 mmHg LV A4C EF 60.1 Transthoracic Echo Complete Result Date: 11/14/2024 [place] [address] [id number], TRANSTHORACIC ECHOCARDIOGRAM REPORT Patient Name: UZMA Winston DURAN Reading Physician: [id number] Ambika Burris MD Study Date: 11/14/2024 Ordering Provider: [id number] BLANCA ROJO MRN/PID: [id number] Fellow: Nurse: Date of /Age: 10 1945 [employer] Set Up Operator: Song Borden RDCS years Gender Assigned at F Additional Staff: : Height: 149.86 cm Admit Date: Weight: 53.52 kg Admission Status: Outpatient BSA / BMI: 1.47 m2 / 23.83 Department Location: [facility] ED kg/m2 Blood Pressure: 133 /94 mmHg Study Type: TRANSTHORACIC ECHO (TTE) COMPLETE Diagnosis/ICD: Personal history of pulmonary embolism-Z86.711 CPT Codes: Echo Complete w Full Doppler-[id number] Study Detail: The following Echo studies were performed: 2D, M-Mode, Doppler and color flow. PHYSICIAN INTERPRETATION: Left Ventricle: Left ventricular ejection fraction is normal by visual estimate at 65-70%. There are no regional wall motion abnormalities. The left ventricular cavity size is normal. There is mild increased septal and mildly increased posterior left ventricular wall thickness. There is left ventricular concentric remodeling. Left ventricular diastolic filling was not assessed. Left Atrium: The left atrial size is normal. Right Ventricle: The right ventricle is normal in size. There is low normal right ventricular systolic function. Right Atrium: The right atrial size is normal. Aortic Valve: The aortic valve is probably trileaflet. The aortic valve area by VTI is 2.43 cm with a peak velocity of 1.38 m/s. The peak and mean gradients are 6 mmHg and 4 mmHg, respectively, with a dimensionless index of 0.77. There is no evidence of aortic valve regurgitation. Mitral Valve: The mitral valve is normal in structure. There is trace mitral valve regurgitation. The E Vmax is 0.76 m/s. Tricuspid Valve: The tricuspid valve is structurally normal. There is mild tricuspid regurgitation. The Doppler estimated right ventricular systolic pressure (RVSP) is within normal limits at 28 mmHg. Pulmonic Valve: The pulmonic valve is not well visualized. The pulmonic valve regurgitation was not assessed. Pericardium: No pericardial effusion noted. Aorta: The aortic root is normal. Systemic Veins: The inferior vena cava appears normal in size, with IVC inspiratory collapse greater than 50%. CONCLUSIONS: 1. Left ventricular ejection fraction is normal by visual estimate at 65-70%. 2. There is low normal right ventricular systolic function. 3. The Doppler estimated RVSP is within normal limits at 28 mmHg. QUANTITATIVE DATA SUMMARY: 2D MEASUREMENTS: Normal Ranges: Ao Root d: 3.00 cm (2.0-3.7cm) LAs: 2.50 cm (2.7-4.0cm) IVSd: 0.98 cm (0.6-1.1cm) LVPWd: 1.06 cm (0.6-1.1cm) LVIDd: 3.64 cm (3.9-5.9cm) LVIDs: 2.21 cm LV Mass Index: 76.9 g/m2 LVEDV Index: 27.85 ml/m2 LV % FS 39.3 % LEFT ATRIUM: Normal Ranges: LA Vol A4C: 8.4 ml (22+/-6mL/m2) LA Vol A2C: 13.9 ml LA Vol BP: 11.4 ml LA Vol Index A4C: 5.7ml/m2 LA Vol Index A2C: 9.5 ml/m2 LA Vol Index BP: 7.8 ml/m2 LA Area A4C: 5.7 cm2 LA Area A2C: 7.8 cm2 LA Major Essex A4C: 3.3 cm LA Major Essex A2C: 3.7 cm LA Volume Index: 5.6 ml/m2 LA Vol A4C: 8.2 ml LA Vol A2C: 13.9 ml LA Vol Index BSA: 7.5 ml/m2 AORTA MEASUREMENTS: Normal Ranges: Asc Ao, d: 2.70 cm (2.1-3.4cm) LV SYSTOLIC FUNCTION: Normal Ranges: EF-A4C View: 60 % (>=55%) EF-A2C View: 60 % EF-Biplane: 60 % EF-Visual: 68 % LV EF Reported: 68 % LV DIASTOLIC FUNCTION: Normal Ranges: MV Peak E: 0.76 m/s (0.7-1.2 m/s) MV Peak A: 1.10 m/s (0.42-0.7 m/s) E/A Ratio: 0.69 (1.0-2.2) MITRAL VALVE: Normal Ranges: MV DT: 166 msec (150-240msec) AORTIC VALVE: Normal Ranges: AoV Vmax: 1.38 m/s (<=1.7m/s) AoV Peak P.6 mmHg (<20mmHg) AoV Mean P.0 mmHg (1.7-11.5mmHg) LVOT Max Fan: 1.14 m/s (<=1.1m/s) AoV VTI: 25.00 cm (18-25cm) LVOT VTI: 19.30 cm LVOT Diameter: 2.00 cm (1.8-2.4cm) AoV Area, VTI: 2.43 cm2 (2.5-5.5cm2) AoV Area,Vmax: 2.60 cm2 (2.5-4.5cm2) AoV Dimensionless Index: 0.77 RIGHT VENTRICLE: RV Basal 3.02 cm RV Mid 2.81 cm RV Major 6.4 cm TAPSE: 15.4 mm RV s' 0.16 m/s TRICUSPID VALVE/RVSP: Normal Ranges: Peak TR Velocity: 2.49 m/s Est. RA Pressure: 3 mmHg RV Syst Pressure: 28 mmHg (< 30mmHg) IVC Diam: 1.60 cm [id number] Ambika Burris MD Electronically signed on 11/14/2024 at 3:25:42 PM Final CONCLUSIONS: 1. Left ventricular ejection fraction is normal by visual estimate at 65-70%. 2. There is low normal right ventricular systolic function. 3. The Doppler estimated RVSP is within normal limits at [address] head wo IV contrast Result Date: 11/14/2024 Interpreted By: Nghia Tony, STUDY: CT HEAD WO IV CONTRAST; ; 11/14/2024 12:13 pm INDICATION: Signs/Symptoms:dysphagia. COMPARISON: None. ACCESSION NUMBER(S): [id number] ORDERING CLINICIAN: ARMOND HOFFMAN TECHNIQUE: Serial axial unenhanced CT images obtained of the head. Images reformatted in the coronal and sagittal projection. All CT examinations are performed with 1 or more of the following dose reduction techniques: Automated exposure control, adjustment of mA and/or kv according to patient's size, or use of iterative reconstruction techniques. FINDINGS: Ventricles, sulci, and cisterns are unremarkable. Hughes-white matter differentiation maintained. Mild periventricular white matter change nonspecific and likely related to chronic small-vessel ischemic change. No intra-axial or extra-axial blood or fluid collections are identified. Visualized osseous structures demonstrate unremarkable paranasal sinuses. Mastoid air cells demonstrate partial opacification of the bilateral maxillary sinuses. 1. No acute intracranial abnormality. 2. Mild periventricular white matter change nonspecific and likely related to chronic small-vessel ischemic change. MACRO: None Signed by: Nghia Tony 11/14/2024 12:52 PM Dictation workstation: [id number] CT angio chest for pulmonary embolism Result Date: 11/14/2024 Interpreted By: Michael Cerrato, STUDY: CT ANGIO CHEST FOR PULMONARY EMBOLISM; 11/14/2024 12:13 pm INDICATION: Signs/Symptoms:requested by [facility] team - known PE on CT chest with IV contrast done 2 days ago. COMPARISON: CT chest abdomen and pelvis 11/12/2024 ACCESSION NUMBER(S): [id number] ORDERING CLINICIAN: ARMOND HOFFMAN TECHNIQUE: Helical data acquisition of the chest was obtained after intravenous administration of 68 ML Omnipaque 350, as per PE protocol. Images were reformatted in coronal and sagittal planes. Axial and coronal maximum intensity projection (MIP) images were created and reviewed. FINDINGS: LOWER NECK, MEDIASTINUM /MINH, AND AXILLA: Posterior right thyroid lobe lesion with central low attenuation measuring 7 mm incompletely characterized No thoracic lymphadenopathy by CT criteria. Esophagus within normal limits. HEART AND VESSELS: Normal cardiac size. No evidence of pericardial effusion. RV/LV ratio 1.22 may reflect right heart strain. No coronary artery calcifications. The study is not optimized for evaluation of coronary arteries. Nonocclusive filling defects at the bifurcation of the distal left main pulmonary artery extending into apical upper lobe and basilar left lower lobe segmental and subsegmental pulmonary arteries. Nonocclusive filling defect within posterior basal right lower lobe segmental and subsegmental pulmonary arteries. Unchanged subcentimeter pulmonary nodules the largest a linear nodule measuring 5 mm in length. Main pulmonary artery and its branches are unremarkable in caliber. No thoracic aortic aneurysm. LUNGS AND AIRWAYS: Trachea and central airways are patent. No endobronchial lesion. Negative for pneumonia, pulmonary edema or mass. No pneumothorax or pleural effusion. Mild atelectasis and scarring. UPPER ABDOMEN: Visualized subdiaphragmatic structures demonstrate no acute abnormality. CHEST WALL AND OSSEOUS STRUCTURES: No acute osseous abnormality.Multilevel degenerative changes of the imaged spine. 1. Mild burden of nonocclusive acute bilateral pulmonary emboli unchanged. 2. Elevated RV/LV ratio may reflect right heart strain. 3. Additional chronic and/or ancillary findings detailed above. Findings communicated with ARMOND HOFFMAN via secure Epic chat by Michael Cerrato MD at 12:48 pm 11/14/2024. MACRO: None Signed by: Michael Cerrato 11/14/2024 12:51 PM Dictation workstation: [id number] Scheduled medications Scheduled Medications[4] Continuous medications Continuous Medications[5] PRN medications PRN Medications[6] Assessment & Plan Personal history of pulmonary embolism 78-year-old female with history of Sleep apnea Hyperlipidemia Hypertension Hyponatremia Depression Presenting with DVT/PE Plan Telemetry Follow vitals, pulse ox Today CBC BMP Heparin drip, vascular recommended anticoagulation at this time Will switch to DOAC upon discharge Follow clinical progress Pain control with morphine IV Follow hematology outpatient Continue home medicines Atorvastatin, losartan, Lasix, potassium supplement, sodium chloride tablet, probiotics, MiraLAX, Cymbalta, mirtazapine Nutrition Supportive care, education counseling DVT prophylaxis addressed Further management as clinical course evolves Suzanne Steward MD [1] Past Medical History: Diagnosis Date Hyperlipidemia, unspecified 02/03/2022 Hyperlipidemia Mallet finger, acquired 05/31/2022 Midline cystocele 05/31/2022 Obstructive sleep apnea (adult) (pediatric) 02/03/2022 Severe obstructive sleep apnea Other abnormal glucose 02/03/2022 Elevated glucose Other specified personal risk factors, not elsewhere classified 02/04/2020 10 year risk of MT or stroke 7.5% or greater Rectocele, female 05/31/2022 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 [2] Past Surgical History: Procedure Laterality Date INJECTION N/A 10/15/2024 Caudal RADHA OTHER SURGICAL HISTORY 02/14/2019 Hysterectomy OTHER SURGICAL HISTORY 02/14/2019 Colonoscopy OTHER SURGICAL HISTORY Uterine prolaps [3] Family History Problem Relation Name Age of Onset Asthma Mother Diabetes Mother Osteoporosis Mother Lung cancer Mother Other (cardiac disorder) Father Hypertension Father Prostate cancer Father Other (Psychological disorder) Father [4] [START ON 11/15/2024] atorvastatin, 20 mg, oral, Daily [START ON 11/15/2024] DULoxetine, 30 mg, oral, Daily furosemide, 20 mg, oral, BID [START ON 11/15/2024] lactobacillus acidophilus, 1 capsule, oral, Daily [START ON 11/15/2024] losartan, 25 mg, oral, Daily mirtazapine, 15 mg, oral, Nightly polyethylene glycol, 17 g, oral, Daily potassium chloride, 20 mEq, oral, Daily sodium chloride, 2,000 mg, oral, BID [5] heparin, 0-4,500 Units/hr, Last Rate: 800 Units/hr (11/14/24 1700) [6] PRN medications: acetaminophen OR [DISCONTINUED] acetaminophen OR [DISCONTINUED] acetaminophen, heparin, ipratropium-albuteroL, morphine, morphine, ondansetron ODT OR ondansetron, zolpidem T [facility] Work Phone: 11-14-2024 History and physical note History Of Present Illness Uzma Duran is a 78 y.o. female presenting with abnormal report on outpatient CT scan of chest abdomen pelvis performed to evaluate pain/occult malignancy which started 2 months ago after a long road trip considering possible sciatica. Patient denies any bowel or bladder dysfunction. No fever chills nausea vomiting diarrhea or bleeding. No skin rash or joint pains. She is experiencing left lower extremity pain intermittently. However no chest pain or shortness of breath or palpitations or syncope. She has been noticing bilateral leg pain hip pain left worse than right. Found to have a left lower extremity DVT. On heparin drip. Vascular team recommended anticoagulation. No strain on echocardiogram. EKG sinus rhythm. No immobility or alarming weight loss but some weight loss but overall maintains healthy active lifestyle. No malignancy. No URI symptoms. No headache neck pain focal weakness. No flank pain hematuria or dysuria. No abdominal pain nausea vomiting diarrhea. CTA chest showing acute bilateral pulmonary emboli. Concern of right heart strain on CTA chest. Echo showing EF 65 to 70%. Low normal right ventricular systolic function Past Medical History Medical History[1] Surgical History Surgical History[2] Sleep apnea Hyperlipidemia Hypertension Hyponatremia Depression Social History She reports that she has quit smoking. Her smoking use included cigarettes. She has never used smokeless tobacco. She reports that she does not currently use alcohol. She reports that she does not use drugs. Family History Family History[3] Allergies Amlodipine and Penicillins Review of Systems All other 12 point review of systems negative except HPI Physical Exam General Appearance: AAO x 3, Skin: skin color pink, warm, and dry; no suspicious rashes or lesions Eyes : PERRL, EOM's intact ENT: mucous membranes pink and moist Neck: normocephalic Respiratory: lungs clear to auscultation anteriorly; no wheezing, rhonchi, or crackles. Heart: regular rate and rhythm. Abdomen: Nondistended, positive bowel sounds x4, soft, nontender Extremities: no edema Peripheral pulses: normal x4 extremities Neuro: alert, coherent and conversant, no focal motor deficits Last Recorded Vitals Blood pressure 114/69, pulse 86, temperature 36.4 C (97.5 F), temperature source Temporal, resp. rate 22, height 1.499 m (4' 11), weight 53.7 kg (118 lb 6.2 oz), SpO2 97%. Relevant Results Results for orders placed or performed during the hospital encounter of 11/14/24 (from the past 24 hours) CBC and Auto Differential Result Value Ref Range WBC 13.7 (H) 4.4 - 11.3 x10*3/uL nRBC 0.0 0.0 - 0.0 /100 WBCs RBC 3.96 (L) 4.00 - 5.20 x10*6/uL Hemoglobin 12.6 12.0 - 16.0 g/dL Hematocrit 37.5 36.0 - 46.0 % MCV 95 80 - 100 fL MCH 31.8 26.0 - 34.0 pg MCHC 33.6 32.0 - 36.0 g/dL RDW 13.6 11.5 - 14.5 % Platelets 286 150 - 450 x10*3/uL Neutrophils % 85.0 40.0 - 80.0 % Immature Granulocytes %, Automated 1.0 (H) 0.0 - 0.9 % Lymphocytes % 6.9 13.0 - 44.0 % Monocytes % 5.9 2.0 - 10.0 % Eosinophils % 0.7 0.0 - 6.0 % Basophils % 0.5 0.0 - 2.0 % Neutrophils Absolute 11.60 (H) 1.60 - 5.50 x10*3/uL Immature Granulocytes Absolute, Automated 0.14 0.00 - 0.50 x10*3/uL Lymphocytes Absolute 0.94 0.80 - 3.00 x10*3/uL Monocytes Absolute 0.81 (H) 0.05 - 0.80 x10*3/uL Eosinophils Absolute 0.09 0.00 - 0.40 x10*3/uL Basophils Absolute 0.07 0.00 - 0.10 x10*3/uL Comprehensive metabolic panel Result Value Ref Range Glucose 102 (H) 74 - 99 mg/dL Sodium 134 (L) 136 - 145 mmol/L Potassium 3.6 3.5 - 5.3 mmol/L Chloride 99 98 - 107 mmol/L Bicarbonate 26 21 - 32 mmol/L Anion Gap 13 10 - 20 mmol/L Urea Nitrogen 19 6 - 23 mg/dL Creatinine 0.63 0.50 - 1.05 mg/dL eGFR >90 >60 mL/min/1.73m*2 Calcium 8.9 8.6 - 10.3 mg/dL Albumin 3.2 (L) 3.4 - 5.0 g/dL Alkaline Phosphatase 80 33 - 136 U/L Total Protein 6.5 6.4 - 8.2 g/dL AST 22 9 - 39 U/L Bilirubin, Total 0.6 0.0 - 1.2 mg/dL ALT 19 7 - 45 U/L Troponin I, High Sensitivity Result Value Ref Range Troponin I, High Sensitivity 9 0 - 13 ng/L B-Type Natriuretic Peptide Result Value Ref Range BNP 55 0 - 99 pg/mL D-Dimer, VTE Exclusion Result Value Ref Range D-Dimer, Quantitative VTE Exclusion 1,761 (H) <=500 ng/mL FEU Protime-INR Result Value Ref Range Protime 12.5 (H) 9.8 - 12.4 seconds INR 1.1 0.9 - 1.1 APTT Result Value Ref Range aPTT 24 (L) 26 - 36 seconds SST TOP Result Value Ref Range Extra Tube Hold for add-ons. Lactate Result Value Ref Range Lactate 1.0 0.4 - 2.0 mmol/L Troponin I, High Sensitivity Result Value Ref Range Troponin I, High Sensitivity 9 0 - 13 ng/L Heparin Assay, UFH Result Value Ref Range Heparin Unfractionated 1.1 (HH) See Comment Below for Therapeutic Ranges IU/mL Transthoracic Echo Complete Result Value Ref Range LA vol index A/L 7.8 ml/m2 AV pk fan 1.38 m/s AV mn grad 4 mmHg LVOT diam 2.00 cm LV Biplane EF 60 % LV EF 68 % MV E/A ratio 0.69 Tricuspid annular plane systolic excursion 1.5 cm RV free wall pk S' 15.90 cm/s LVIDd 3.64 cm RVSP 28 mmHg Aortic Valve Area by Continuity of VTI 2.43 cm2 Aortic Valve Area by Continuity of Peak Velocity 2.60 cm2 AV pk grad 8 mmHg LV A4C EF 60.1 Transthoracic Echo Complete Result Date: 11/14/2024 [place] [address] [id number], TRANSTHORACIC ECHOCARDIOGRAM REPORT Patient Name: UZMA DURAN Reading Physician: [id number] Ambika Burris MD Study Date: 11/14/2024 Ordering Provider: [id number] BLANCA ROJO MRN/PID: [id number] Fellow: Nurse: Date of /Age: 10 1945 [employer] Set Up Operator: Song Borden RDCS years Gender Assigned at F Additional Staff: : Height: 149.86 cm Admit Date: Weight: 53.52 kg Admission Status: Outpatient BSA / BMI: 1.47 m2 / 23.83 Department Location: [facility] ED kg/m2 Blood Pressure: 133 /94 mmHg Study Type: TRANSTHORACIC ECHO (TTE) COMPLETE Diagnosis/ICD: Personal history of pulmonary embolism-Z86.711 CPT Codes: Echo Complete w Full Doppler-[id number] Study Detail: The following Echo studies were performed: 2D, M-Mode, Doppler and color flow. PHYSICIAN INTERPRETATION: Left Ventricle: Left ventricular ejection fraction is normal by visual estimate at 65-70%. There are no regional wall motion abnormalities. The left ventricular cavity size is normal. There is mild increased septal and mildly increased posterior left ventricular wall thickness. There is left ventricular concentric remodeling. Left ventricular diastolic filling was not assessed. Left Atrium: The left atrial size is normal. Right Ventricle: The right ventricle is normal in size. There is low normal right ventricular systolic function. Right Atrium: The right atrial size is normal. Aortic Valve: The aortic valve is probably trileaflet. The aortic valve area by VTI is 2.43 cm with a peak velocity of 1.38 m/s. The peak and mean gradients are 6 mmHg and 4 mmHg, respectively, with a dimensionless index of 0.77. There is no evidence of aortic valve regurgitation. Mitral Valve: The mitral valve is normal in structure. There is trace mitral valve regurgitation. The E Vmax is 0.76 m/s. Tricuspid Valve: The tricuspid valve is structurally normal. There is mild tricuspid regurgitation. The Doppler estimated right ventricular systolic pressure (RVSP) is within normal limits at 28 mmHg. Pulmonic Valve: The pulmonic valve is not well visualized. The pulmonic valve regurgitation was not assessed. Pericardium: No pericardial effusion noted. Aorta: The aortic root is normal. Systemic Veins: The inferior vena cava appears normal in size, with IVC inspiratory collapse greater than 50%. CONCLUSIONS: 1. Left ventricular ejection fraction is normal by visual estimate at 65-70%. 2. There is low normal right ventricular systolic function. 3. The Doppler estimated RVSP is within normal limits at 28 mmHg. QUANTITATIVE DATA SUMMARY: 2D MEASUREMENTS: Normal Ranges: Ao Root d: 3.00 cm (2.0-3.7cm) LAs: 2.50 cm (2.7-4.0cm) IVSd: 0.98 cm (0.6-1.1cm) LVPWd: 1.06 cm (0.6-1.1cm) LVIDd: 3.64 cm (3.9-5.9cm) LVIDs: 2.21 cm LV Mass Index: 76.9 g/m2 LVEDV Index: 27.85 ml/m2 LV % FS 39.3 % LEFT ATRIUM: Normal Ranges: LA Vol A4C: 8.4 ml (22+/-6mL/m2) LA Vol A2C: 13.9 ml LA Vol BP: 11.4 ml LA Vol Index A4C: 5.7ml/m2 LA Vol Index A2C: 9.5 ml/m2 LA Vol Index BP: 7.8 ml/m2 LA Area A4C: 5.7 cm2 LA Area A2C: 7.8 cm2 LA Major Essex A4C: 3.3 cm LA Major [place] A2C: 3.7 cm LA Volume Index: 5.6 ml/m2 LA Vol A4C: 8.2 ml LA Vol A2C: 13.9 ml LA Vol Index BSA: 7.5 ml/m2 AORTA MEASUREMENTS: Normal Ranges: Asc Ao, d: 2.70 cm (2.1-3.4cm) LV SYSTOLIC FUNCTION: Normal Ranges: EF-A4C View: 60 % (>=55%) EF-A2C View: 60 % EF-Biplane: 60 % EF-Visual: 68 % LV EF Reported: 68 % LV DIASTOLIC FUNCTION: Normal Ranges: MV Peak E: 0.76 m/s (0.7-1.2 m/s) MV Peak A: 1.10 m/s (0.42-0.7 m/s) E/A Ratio: 0.69 (1.0-2.2) MITRAL VALVE: Normal Ranges: MV DT: 166 msec (150-240msec) AORTIC VALVE: Normal Ranges: AoV Vmax: 1.38 m/s (<=1.7m/s) AoV Peak P.6 mmHg (<20mmHg) AoV Mean P.0 mmHg (1.7-11.5mmHg) LVOT Max Fan: 1.14 m/s (<=1.1m/s) AoV VTI: 25.00 cm (18-25cm) LVOT VTI: 19.30 cm LVOT Diameter: 2.00 cm (1.8-2.4cm) AoV Area, VTI: 2.43 cm2 (2.5-5.5cm2) AoV Area,Vmax: 2.60 cm2 (2.5-4.5cm2) AoV Dimensionless Index: 0.77 RIGHT VENTRICLE: RV Basal 3.02 cm RV Mid 2.81 cm RV Major 6.4 cm TAPSE: 15.4 mm RV s' 0.16 m/s TRICUSPID VALVE/RVSP: Normal Ranges: Peak TR Velocity: 2.49 m/s Est. RA Pressure: 3 mmHg RV Syst Pressure: 28 mmHg (< 30mmHg) IVC Diam: 1.60 cm [id number] Ambika Burris MD Electronically signed on 11/14/2024 at 3:25:42 PM Final CONCLUSIONS: 1. Left ventricular ejection fraction is normal by visual estimate at 65-70%. 2. There is low normal right ventricular systolic function. 3. The Doppler estimated RVSP is within normal limits at [address] head wo IV contrast Result Date: 11/14/2024 Interpreted By: Nghia Tony, STUDY: CT HEAD WO IV CONTRAST; ; 11/14/2024 12:13 pm INDICATION: Signs/Symptoms:dysphagia. COMPARISON: None. ACCESSION NUMBER(S): [id number] ORDERING CLINICIAN: ARMOND HOFFMAN TECHNIQUE: Serial axial unenhanced CT images obtained of the head. Images reformatted in the coronal and sagittal projection. All CT examinations are performed with 1 or more of the following dose reduction techniques: Automated exposure control, adjustment of mA and/or kv according to patient's size, or use of iterative reconstruction techniques. FINDINGS: Ventricles, sulci, and cisterns are unremarkable. Hughes-white matter differentiation maintained. Mild periventricular white matter change nonspecific and likely related to chronic small-vessel ischemic change. No intra-axial or extra-axial blood or fluid collections are identified. Visualized osseous structures demonstrate unremarkable paranasal sinuses. Mastoid air cells demonstrate partial opacification of the bilateral maxillary sinuses. 1. No acute intracranial abnormality. 2. Mild periventricular white matter change nonspecific and likely related to chronic small-vessel ischemic change. MACRO: None Signed by: Nghia Tony 11/14/2024 12:52 PM Dictation workstation: [id number] CT angio chest for pulmonary embolism Result Date: 11/14/2024 Interpreted By: Michael Cerrato, STUDY: CT ANGIO CHEST FOR PULMONARY EMBOLISM; 11/14/2024 12:13 pm INDICATION: Signs/Symptoms:requested by [facility] team - known PE on CT chest with IV contrast done 2 days ago. COMPARISON: CT chest abdomen and pelvis 11/12/2024 ACCESSION NUMBER(S): [id number] ORDERING CLINICIAN: ARMOND HOFFMAN TECHNIQUE: Helical data acquisition of the chest was obtained after intravenous administration of 68 ML Omnipaque 350, as per PE protocol. Images were reformatted in coronal and sagittal planes. Axial and coronal maximum intensity projection (MIP) images were created and reviewed. FINDINGS: LOWER NECK, MEDIASTINUM /MINH, AND AXILLA: Posterior right thyroid lobe lesion with central low attenuation measuring 7 mm incompletely characterized No thoracic lymphadenopathy by CT criteria. Esophagus within normal limits. HEART AND VESSELS: Normal cardiac size. No evidence of pericardial effusion. RV/LV ratio 1.22 may reflect right heart strain. No coronary artery calcifications. The study is not optimized for evaluation of coronary arteries. Nonocclusive filling defects at the bifurcation of the distal left main pulmonary artery extending into apical upper lobe and basilar left lower lobe segmental and subsegmental pulmonary arteries. Nonocclusive filling defect within posterior basal right lower lobe segmental and subsegmental pulmonary arteries. Unchanged subcentimeter pulmonary nodules the largest a linear nodule measuring 5 mm in length. Main pulmonary artery and its branches are unremarkable in caliber. No thoracic aortic aneurysm. LUNGS AND AIRWAYS: Trachea and central airways are patent. No endobronchial lesion. Negative for pneumonia, pulmonary edema or mass. No pneumothorax or pleural effusion. Mild atelectasis and scarring. UPPER ABDOMEN: Visualized subdiaphragmatic structures demonstrate no acute abnormality. CHEST WALL AND OSSEOUS STRUCTURES: No acute osseous abnormality.Multilevel degenerative changes of the imaged spine. 1. Mild burden of nonocclusive acute bilateral pulmonary emboli unchanged. 2. Elevated RV/LV ratio may reflect right heart strain. 3. Additional chronic and/or ancillary findings detailed above. Findings communicated with ARMOND HOFFMAN via secure Epic chat by Michael Cerrato MD at 12:48 pm 11/14/2024. MACRO: None Signed by: Michael Cerrato 11/14/2024 12:51 PM Dictation workstation: [id number] Scheduled medications Scheduled Medications[4] Continuous medications Continuous Medications[5] PRN medications PRN Medications[6] Assessment & Plan Personal history of pulmonary embolism 78-year-old female with history of Sleep apnea Hyperlipidemia Hypertension Hyponatremia Depression Presenting with DVT/PE Plan Telemetry Follow vitals, pulse ox Today CBC BMP Heparin drip, vascular recommended anticoagulation at this time Will switch to DOAC upon discharge Follow clinical progress Pain control with morphine IV Follow hematology outpatient Continue home medicines Atorvastatin, losartan, Lasix, potassium supplement, sodium chloride tablet, probiotics, MiraLAX, Cymbalta, mirtazapine Nutrition Supportive care, education counseling DVT prophylaxis addressed Further management as clinical course evolves Suzanne Steward MD [1] Past Medical History: Diagnosis Date Hyperlipidemia, unspecified 02/03/2022 Hyperlipidemia Mallet finger, acquired 05/31/2022 Midline cystocele 05/31/2022 Obstructive sleep apnea (adult) (pediatric) 02/03/2022 Severe obstructive sleep apnea Other abnormal glucose 02/03/2022 Elevated glucose Other specified personal risk factors, not elsewhere classified 02/04/2020 10 year risk of MT or stroke 7.5% or greater Rectocele, female 05/31/2022 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 [2] Past Surgical History: Procedure Laterality Date INJECTION N/A 10/15/2024 Caudal RADHA OTHER SURGICAL HISTORY 02/14/2019 Hysterectomy OTHER SURGICAL HISTORY 02/14/2019 Colonoscopy OTHER SURGICAL HISTORY Uterine prolaps [3] Family History Problem Relation Name Age of Onset Asthma Mother Diabetes Mother Osteoporosis Mother Lung cancer Mother Other (cardiac disorder) Father Hypertension Father Prostate cancer Father Other (Psychological disorder) Father [4] [START ON 11/15/2024] atorvastatin, 20 mg, oral, Daily [START ON 11/15/2024] DULoxetine, 30 mg, oral, Daily furosemide, 20 mg, oral, BID [START ON 11/15/2024] lactobacillus acidophilus, 1 capsule, oral, Daily [START ON 11/15/2024] losartan, 25 mg, oral, Daily mirtazapine, 15 mg, oral, Nightly polyethylene glycol, 17 g, oral, Daily potassium chloride, 20 mEq, oral, Daily sodium chloride, 2,000 mg, oral, BID [5] heparin, 0-4,500 Units/hr, Last Rate: 800 Units/hr (11/14/24 1700) [6] PRN medications: acetaminophen OR [DISCONTINUED] acetaminophen OR [DISCONTINUED] acetaminophen, heparin, ipratropium-albuteroL, morphine, morphine, ondansetron ODT OR ondansetron, zolpidem documented in this encounter [facility] Work Phone: 11-14-2024 Plan of care note Problem: Pain - Adult Goal: Verbalizes/displays adequate comfort level or baseline comfort level Outcome: Progressing Problem: Safety - Adult Goal: Free from fall injury Outcome: Progressing Problem: Discharge Planning Goal: Discharge to home or other facility with appropriate resources Outcome: Progressing Problem: Chronic Conditions and Co-morbidities Goal: Patient's chronic conditions and co-morbidity symptoms are monitored and maintained or improved Outcome: Progressing Problem: Nutrition Goal: Nutrient intake appropriate for maintaining nutritional needs Outcome: Progressing Problem: Skin Goal: Decreased wound size/increased tissue granulation at next dressing change Outcome: Progressing Flowsheets (Taken 11/14/20241741) Decreased wound size/increased tissue granulation at next dressing change: Promote sleep for wound healing Goal: Participates in plan/prevention/treatment measures Outcome: Progressing Flowsheets (Taken 11/14/20241741) Participates in plan/prevention/treatment measures: Elevate heels Increase activity/out of bed for meals Goal: Prevent/manage excess moisture Outcome: Progressing Flowsheets (Taken 11/14/20241741) Prevent/manage excess moisture: Monitor for/manage infection if present Cleanse incontinence/protect with barrier cream Goal: Prevent/minimize sheer/friction injuries Outcome: Progressing Flowsheets (Taken 11/14/20241741) Prevent/minimize sheer/friction injuries: HOB 30 degrees or less Turn/reposition every 2 hours/use positioning/transfer devices Increase activity/out of bed for meals Goal: Promote/optimize nutrition Outcome: Progressing Flowsheets (Taken 11/14/20241741) Promote/optimize nutrition: Assist with feeding Consume > 50% meals/supplements Monitor/record intake including meals Offer water/supplements/favorite foods Goal: Promote skin healing Outcome: Progressing Flowsheets (Taken 11/14/20241741) Promote skin healing: Assess skin/pad under line(s)/device(s) Turn/reposition every 2 hours/use positioning/transfer devices The clinical goals for the shift include rest, titrate heparin gtt as ordered [facility] Work Phone: 11-14-2024 Emergency department Note Uzma Duran Full Code Chief Complaint Patient presents with pulmonary embolism Pt was called by and told she has bilateral PE, pt denies SOB/chest pain. Pt reports bilateral leg and hip pain, left worse than right. Patient Situation: Pt placed on a Heparin drip in ER and pulmonary/cardiac workup initiated. Confused : no 1 Assist IV: yes Glass: no Central Line/Port: no Tele: yes, SR Continuous infusion: yes Heparin drip at 8ml/800unit/hr I/O: No intake/output data recorded. Most RecentVisit Vitals BP 124/78 (BP Location: Left arm, Patient Position: Lying) Pulse 83 Resp 20 Abnormal Labs Reviewed CBC WITH AUTO DIFFERENTIAL - Abnormal; Notable for the following components: Result Value WBC 13.7 (*) RBC 3.96 (*) Immature Granulocytes %, Automated 1.0 (*) Neutrophils Absolute 11.60 (*) Monocytes Absolute 0.81 (*) All other components within normal limits COMPREHENSIVE METABOLIC PANEL - Abnormal; Notable for the following components: Glucose 102 (*) Sodium 134 (*) Albumin 3.2 (*) All other components within normal limits D-DIMER, VTE EXCLUSION - Abnormal; Notable for the following components: D-Dimer, Quantitative VTE Exclusion 1,761 (*) All other components within normal limits Narrative: The VTE Exclusion D-Dimer assay is reported in ng/mL Fibrinogen Equivalent Units (FEU). Per pheresis nurse's instructions for use, a value of less than 500 ng/mL (FEU) may help to exclude DVT or PE in outpatients when the assay is used with a clinical pretest probability assessment.(AEMR must utilize and document eCalc 'Wells Score Deep Vein Thrombosis Risk' for DVT exclusion only. Emergency Department should utilize Guidelines for Emergency Department Use of the VTE Exclusion D-Dimer and Clinical Pretest probability assessment model for DVT or PE exclusion.) PROTIME-INR - Abnormal; Notable for the following components: Protime 12.5 (*) All other components within normal limits APTT - Abnormal; Notable for the following components: aPTT 24 (*) All other components within normal limits Narrative: The APTT is no longer used for monitoring Unfractionated Heparin Therapy. For monitoring Heparin Therapy, use the Heparin Assay. HEPARIN ASSAY - Abnormal; Notable for the following components: Heparin Unfractionated 1.1 (*) All other components within normal limits Narrative: The therapeutic reference range for UFH may be either 0.3-0.6 IU/mL or 0.3-0.7 IU/mL based on the clinical setting for anticoagulant therapy and the associated nomogram used. For Heparin dosing guidelines based on clinical scenario and Heparin Assay results, please refer to local Pharmacy and the [facility] Guidelines for Anticoagulation Therapy available on the [facility] intranet at: [email or web address] Naveed Smiley RN 11/14/24 4403 [facility] Work Phone: 11-14-2024 Emergency department Note Uzma Montero Renee Full Code Chief Complaint Patient presents with pulmonary embolism Pt was called by Dr and told she has bilateral PE, pt denies SOB/chest pain. Pt reports bilateral leg and hip pain, left worse than right. Patient Situation: Pt placed on a Heparin drip in ER and pulmonary/cardiac workup initiated. Confused : no 1 Assist IV: yes Glass: no Central Line/Port: no Tele: yes, SR Continuous infusion: yes Heparin drip at 8ml/800unit/hr I/O: No intake/output data recorded. Most RecentVisit Vitals BP 124/78 (BP Location: Left arm, Patient Position: Lying) Pulse 83 Resp 20 Abnormal Labs Reviewed CBC WITH AUTO DIFFERENTIAL - Abnormal; Notable for the following components: Result Value WBC 13.7 (*) RBC 3.96 (*) Immature Granulocytes %, Automated 1.0 (*) Neutrophils Absolute 11.60 (*) Monocytes Absolute 0.81 (*) All other components within normal limits COMPREHENSIVE METABOLIC PANEL - Abnormal; Notable for the following components: Glucose 102 (*) Sodium 134 (*) Albumin 3.2 (*) All other components within normal limits D-DIMER, VTE EXCLUSION - Abnormal; Notable for the following components: D-Dimer, Quantitative VTE Exclusion 1,761 (*) All other components within normal limits Narrative: The VTE Exclusion D-Dimer assay is reported in ng/mL Fibrinogen Equivalent Units (FEU). Per pheresis nurse's instructions for use, a value of less than 500 ng/mL (FEU) may help to exclude DVT or PE in outpatients when the assay is used with a clinical pretest probability assessment.([facility]EMR must utilize and document eCalc 'Wells Score Deep Vein Thrombosis Risk' for DVT exclusion only. Emergency Department should utilize Guidelines for Emergency Department Use of the VTE Exclusion D-Dimer and Clinical Pretest probability assessment model for DVT or PE exclusion.) PROTIME-INR - Abnormal; Notable for the following components: Protime 12.5 (*) All other components within normal limits APTT - Abnormal; Notable for the following components: aPTT 24 (*) All other components within normal limits Narrative: The APTT is no longer used for monitoring Unfractionated Heparin Therapy. For monitoring Heparin Therapy, use the Heparin Assay. HEPARIN ASSAY - Abnormal; Notable for the following components: Heparin Unfractionated 1.1 (*) All other components within normal limits Narrative: The therapeutic reference range for UFH may be either 0.3-0.6 IU/mL or 0.3-0.7 IU/mL based on the clinical setting for anticoagulant therapy and the associated nomogram used. For Heparin dosing guidelines based on clinical scenario and Heparin Assay results, please refer to local Pharmacy and the [facility] Guidelines for Anticoagulation Therapy available on the [facility] intranet at: [email or web address] Naveed Smiley RN 11/14/24 1603 78-year-old female presents with a chief report of abnormal CT scan findings. She had a CT scan of the chest abdomen pelvis for what she states is persistent sciatica and low sodium. The order itself states abnormal weight loss. Pertinent findings included a partially occlusive pulmonary emboli seen in the distal left main pulmonary artery, segmental and subsegmental left lower lobe and right lower lobe pulmonary artery. Patient has been having some left discomfort diagnosed with sciatica. She did go on a long car trip about 2 months ago and thinks that is when this started. She denies any chest pain, radiating symptoms to the extremity neck or jaw or shortness of breath. Review of Systems Physical Exam Vitals and nursing note reviewed. Constitutional: Appearance: She is not ill-appearing or toxic-appearing. HENT: Head: Normocephalic and atraumatic. Right Ear: Tympanic membrane normal. Left Ear: Tympanic membrane normal. Nose: Nose normal. Mouth/Throat: Mouth: Mucous membranes are moist. Pharynx: No oropharyngeal exudate or posterior oropharyngeal erythema. Eyes: Extraocular Movements: Extraocular movements intact. Conjunctiva/sclera: Conjunctivae normal. Pupils: Pupils are equal, round, and reactive to light. Cardiovascular: Rate and Rhythm: Normal rate and regular rhythm. Pulmonary: Effort: Pulmonary effort is normal. No respiratory distress. Breath sounds: Normal breath sounds. No wheezing, rhonchi or rales. Abdominal: General: There is no distension. Palpations: Abdomen is soft. There is no mass. Tenderness: There is no abdominal tenderness. There is no guarding. Musculoskeletal: General: No deformity. Normal range of motion. Cervical back: Neck supple. No tenderness. Comments: Mild left calf discomfort without swelling Skin: General: Skin is warm and dry. Neurological: General: No focal deficit present. Mental Status: She is alert and oriented to person, place, and time. Psychiatric: Mood and Affect: Mood normal. Labs Reviewed CBC WITH AUTO DIFFERENTIAL COMPREHENSIVE METABOLIC PANEL TROPONIN I, HIGH SENSITIVITY D-DIMER, VTE EXCLUSION PROTIME-INR APTT No orders to display Procedures Medical Decision Making Amount and/or Complexity of Data Reviewed ECG/medicine tests: independent interpretation performed. Details: Sinus rhythm rate of 100, narrow complex, left axis deviation, no ST elevation or depression. Occasional premature supraventricular complexes. Diagnoses as of 11/15/24 0602 Acute pulmonary embolism without acute cor pulmonale, unspecified pulmonary embolism type (Multi) Abdullahi Alarcon MD 11/15/24601 documented in this encounter [facility] Work Phone: 11-14-2024 Plan of care note This note represents a summary of a virtual evaluation requested by Dr. Armond Hoffman. Suggestions and impression are summarized from the initial virtual encounter and discussion with the referring medical team. These suggestions supplement but should not be a substitute for bedside evaluation and management by the attending of record. 78yo F with who had a PE detected on outpatient CT scan (not PE protocol). No Heart disease/lung disease per referring provider. Not beta blocked per referring provider and looks well. US Duplex not released, but has clot in LLE. Vitals: Not tachycardic, SBP >100, not tachypneic, on RA saturating well. PESI Score: 77, consistent with JLPESIRISK: Class II, or Low risk (1.7-3.5% 30-day mortality risk) PE. Recommendations: -Echocardiogram -Complete LE US Duplex -CTPE protocol -lactate/BNP/repeat Trop -Leg exam to r/o ischemia as a result of venous thrombi which may need vasc surgery eval -Please re-engage if clinical changes occur / any of the above results are concerning -continue heparin drip (no Contraindications per referring provider) -admit to inpatient telemetry -cancer screening per referring provider / primary after discharge Discussed with Dr. Hong, ICU attending Cosigned by Zenia Hong MD at 11/14/2024 5:12 PM EDT [facility] Work Phone: 11-14-2024 Physician Emergency department Note 78-year-old female presents with a chief report of abnormal CT scan findings. She had a CT scan of the chest abdomen pelvis for what she states is persistent sciatica and low sodium. The order itself states abnormal weight loss. Pertinent findings included a partially occlusive pulmonary emboli seen in the distal left main pulmonary artery, segmental and subsegmental left lower lobe and right lower lobe pulmonary artery. Patient has been having some left discomfort diagnosed with sciatica. She did go on a long car trip about 2 months ago and thinks that is when this started. She denies any chest pain, radiating symptoms to the extremity neck or jaw or shortness of breath. Review of Systems Physical Exam Vitals and nursing note reviewed. Constitutional: Appearance: She is not ill-appearing or toxic-appearing. HENT: Head: Normocephalic and atraumatic. Right Ear: Tympanic membrane normal. Left Ear: Tympanic membrane normal. Nose: Nose normal. Mouth/Throat: Mouth: Mucous membranes are moist. Pharynx: No oropharyngeal exudate or posterior oropharyngeal erythema. Eyes: Extraocular Movements: Extraocular movements intact. Conjunctiva/sclera: Conjunctivae normal. Pupils: Pupils are equal, round, and reactive to light. Cardiovascular: Rate and Rhythm: Normal rate and regular rhythm. Pulmonary: Effort: Pulmonary effort is normal. No respiratory distress. Breath sounds: Normal breath sounds. No wheezing, rhonchi or rales. Abdominal: General: There is no distension. Palpations: Abdomen is soft. There is no mass. Tenderness: There is no abdominal tenderness. There is no guarding. Musculoskeletal: General: No deformity. Normal range of motion. Cervical back: Neck supple. No tenderness. Comments: Mild left calf discomfort without swelling Skin: General: Skin is warm and dry. Neurological: General: No focal deficit present. Mental Status: She is alert and oriented to person, place, and time. Psychiatric: Mood and Affect: Mood normal. Labs Reviewed CBC WITH AUTO DIFFERENTIAL COMPREHENSIVE METABOLIC PANEL TROPONIN I, HIGH SENSITIVITY D-DIMER, VTE EXCLUSION PROTIME-INR APTT No orders to display Procedures Medical Decision Making Amount and/or Complexity of Data Reviewed ECG/medicine tests: independent interpretation performed. Details: Sinus rhythm rate of 100, narrow complex, left axis deviation, no ST elevation or depression. Occasional premature supraventricular complexes. Diagnoses as of 11/15/24601 Acute pulmonary embolism without acute cor pulmonale, unspecified pulmonary embolism type (Multi) Abdullahi Alarcon MD 11/15/24601 [facility] Work Phone: 11-08-2024 Evaluation + Plan note Associated Problem(s): Hyponatremia Sodium levels can continue to be low, currently at 130, she is taking her salt tablets twice a day and Lasix 20 mg twice a day, will have her add a salt tablet at lunch for the next week, will recheck labs in 1 week and I will call her with these results Encouraged her to continue to try to increase her protein intake [facility] Work Phone: 11-08-2024 Miscellaneous Notes Associated Problem(s): Hyponatremia Sodium levels can continue to be low, currently at 130, she is taking her salt tablets twice a day and Lasix 20 mg twice a day, will have her add a salt tablet at lunch for the next week, will recheck labs in 1 week and I will call her with these results Encouraged her to continue to try to increase her protein intake documented in this encounter [facility] Work Phone: 11-08-2024 History of Present illness Narrative Subjective Patient ID: Uzma Duran is a 78 y.o. female who presents for Follow-up (ER visit 11/02). Patient being seen in follow-up per her request secondary to SIADH and peripheral edema Labs reviewed Glucose 111 Sodium 130, potassium 3.8, chloride 95, bicarb 27 Renal function a BUN of 17 and creatinine of 0.63, GFR is 90 H&H 13.2 and 38.9 Had recently been to the emergency room secondary to weakness, was found out at that time that her sodium level was 130 She states that her sodium level had been better controlled but has started to drop again Potassium level was good She does have decreased appetite and is forcing herself to eat She is using some protein drinks She is complaining of generalized weakness Review of Systems Constitutional: Positive for fatigue. HENT: Negative. Eyes: Negative. Respiratory: Negative. Cardiovascular: Negative. Gastrointestinal: Negative. Decreased appetite Endocrine: Negative. Genitourinary: Negative. Musculoskeletal: Negative. Skin: Negative. Allergic/Immunologic: Negative. Neurological: Positive for weakness. Hematological: Negative. Psychiatric/Behavioral: Negative. Objective Physical Exam Constitutional: Appearance: Normal appearance. HENT: Head: Normocephalic and atraumatic. Mouth/Throat: Mouth: Mucous membranes are moist. Eyes: Extraocular Movements: Extraocular movements intact. Cardiovascular: Rate and Rhythm: Normal rate and regular rhythm. Heart sounds: Normal heart sounds. Pulmonary: Effort: Pulmonary effort is normal. Breath sounds: Normal breath sounds. Abdominal: General: Bowel sounds are normal. Palpations: Abdomen is soft. Musculoskeletal: Comments: Uses a walker Skin: General: Skin is warm and dry. Neurological: Mental Status: She is alert. Psychiatric: Behavior: Behavior normal. Thought Content: Thought content normal. Assessment/Plan Problem List Items Addressed This Visit ICD-10-CM Hypertension - Primary I10 Relevant Medications furosemide (Lasix) 20 mg tablet Hyponatremia E87.1 Sodium levels can continue to be low, currently at 130, she is taking her salt tablets twice a day and Lasix 20 mg twice a day, will have her add a salt tablet at lunch for the next week, will recheck labs in 1 week and I will call her with these results Encouraged her to continue to try to increase her protein intake Relevant Medications furosemide (Lasix) 20 mg tablet Other Relevant Orders Basic metabolic panel Hypokalemia E87.6 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 Patient presents for periodic surveillance of chronic medical problems. Subjective Uzma Duran is a 78 y.o. female who presents for Follow-up. HPI Here with daughter, Muriel ( ?sp) and spouse for followup on several issues. -Chronic insomnia, worse of late, remeron at 7.5 mg did not help, trial of increased dose of remeron 15 at bedtime. -Severe sleep apnea, not treated. Risks have been previously reviewed with her. Had sleep study in 2014, was profoundly abnormal. Saw Dr Debbie Bean, sleep specialist here in town at the time and cpap was initiated. Pt did not tolerate well and she sought out on her own a dentist who made her a dental appliance. Per pt, she went back and had a follow up study that showed the dental appliance was not helping, and thus has been untreated since then. Agreeable to trial of treatment now. -Difficulty swallowing, potassium pills, and in general. Potassium wants the liquid. Taking due to lasix for hyponatremia. `Loss of appetite, weight loss- likely illness, medication related, will get imaging to rule out other causes as well -hyponatremia, per nephrology notes, sodium had been up to 135, from low of 118 when discovered, was 130 in the er. She had her lasix reduced due to intolerance -HTN, losartan 50 mg held since hospital stay, recommend restart at 25 mg, she will call to tell us if hers are scored -Radiculopathy-She stopped the cymbalta on her own, now back on it, worsening, weakness, fup pain management, neurosurg Carpal tunnel- follow up with ortho,keep wearing braces -Mood, stressed a bit, not used to being sick she states -Decreased appetite, possibly increased remeron will help, discussed high calorie, nutrient dense foods Review of Systems All other systems reviewed and are negative. . Allergies[1] Medications Ordered Prior to Encounter[2] Problem List[3] Objective Visit Vitals BP 146/82 (BP Location: Right arm, Patient Position: Sitting) Pulse 100 Physical Exam Vitals reviewed. HENT: Head: Normocephalic. Eyes: General: No scleral icterus. Cardiovascular: Rate and Rhythm: Normal rate and regular rhythm. Pulmonary: Effort: Pulmonary effort is normal. No respiratory distress. Breath sounds: Normal breath sounds. No wheezing or rales. Skin: Coloration: Skin is not pale. Neurological: Mental Status: She is alert. Mental status is at baseline. Assessment/Plan Problem List Items Addressed This Visit Hypertension Relevant Medications potassium chloride 20 mEq/15 mL liquid losartan (Cozaar) 25 mg tablet Lumbar radiculopathy - Primary Relevant Medications DULoxetine (Cymbalta) [address] capsule Other Relevant Orders Referral to Spine Surgery Hypokalemia Relevant Medications potassium chloride 20 mEq/15 mL liquid Other Visit Diagnoses Other dysphagia Relevant Orders Referral to Gastroenterology Mood change Relevant Medications mirtazapine (Remeron) 15 mg tablet Weight loss Relevant Orders CT chest abdomen pelvis w IV contrast Severe sleep apnea Relevant Orders Positive Airway Pressure (PAP) Therapy 75 minutes total face to face, documentation and chart review. As per hpi. Cbc and cmp prior to imaging. Frequent follow up for now. Cyndi Horn MD Patient was identified as a fall risk. Risk prevention instructions provided. [1] Allergies Allergen Reactions Amlodipine Swelling Ankle swelling Penicillins Rash [2] Current Outpatient Medications on File Prior to Visit Medication Sig Dispense Refill ascorbic acid/collagen hydr (COLLAGEN SKIN RENEWAL ORAL) Take by mouth once daily. atorvastatin (Lipitor) 40 mg tablet Take 0.5 tablets (20 mg) by mouth once daily. cyanocobalamin, vitamin B-12, (VITAMIN B-12 ORAL) Take 1 tablet by mouth early in the morning.. diclofenac sodium (Voltaren) 1 % gel Apply 4.5 inches (4 g) topically 4 times a day as needed (as needed for pain). 100 g 1 docosahexaenoic acid/epa (FISH OIL ORAL) Take 1 capsule by mouth early in the morning.. furosemide (Lasix) 20 mg tablet Take 1 tablet (20 mg) by mouth 2 times daily (morning and late afternoon). L. acidophilus/Bifid. animalis 32 billion cell capsule Take by mouth. ondansetron ODT (Zofran-ODT) 8 mg disintegrating tablet Dissolve 1 tablet (8 mg) in the mouth every 8 hours if needed for nausea or vomiting. 20 tablet 1 sodium chloride 1,000 mg tablet Take 2 tablets (2 g) by mouth 2 times daily (morning and late afternoon). 120 tablet 1 [DISCONTINUED] mirtazapine (Remeron) 7.5 mg tablet Take 1 tablet (7.5 mg) by mouth once daily at bedtime. 30 tablet 2 [DISCONTINUED] potassium chloride CR 20 mEq ER tablet Take 1 tablet (20 mEq) by mouth once daily. Do not crush or chew. 30 tablet 11 [DISCONTINUED] brsiroe-bqgr-gqcoe-oreg-capryl 100 mg-150 mg- 50 mg-150 mg capsule Take 1 capsule by mouth early in the morning.. (Patient not taking: Reported on 11/05/2024) [DISCONTINUED] zinc gluconate 50 mg elemental tablet Take 1 tablet by mouth once daily. (Patient not taking: Reported on 11/05/2024) No current facility-administered medications on file prior to visit. [3] Patient Active Problem List Diagnosis Elevated glucose Hyperlipidemia Multiple thyroid nodules Osteoporosis Severe obstructive sleep apnea Tubular adenoma of colon Hypertension Agatston CAC score, >400 Hyponatremia Lumbar radiculopathy Hypokalemia Right carpal tunnel syndrome documented in this encounter [facility] Work Phone: 11-05-2024 Instructions Cyndi Horn MD - 11/05/2024 10:00 AM EDT Ways to Help Prevent Falls at Home Quick Tips ? Ask for help if you need it. Most people want to help! ? Get up slowly after sitting or laying down ? Wear a medical alert device or keep cell phone in your pocket ? Use night lights, especially areas near a bathroom ? Keep the items you use often within reach on a small stool or end table ? Use an assistive device such as walker or cane, as directed by provider/physical therapy ? Use a non-slip mat and grab bars in your bathroom. Look for home health sections for best options Other Areas to Focus On ? Exercise and nutrition: Regular exercise or taking a falls prevention class are great ways improve strength and balance. Don t forget to stay hydrated and bring a snack! ? Medicine side effects: Some medicines can make you sleepy or dizzy, which could cause a fall. Ask your healthcare provider about the side effects your medicines could cause. Be sure to let them know if you take any vitamins or supplements as well. ? Tripping hazards: Remove items you could trip on, such as loose mats, rugs, cords, and clutter. Wear closed toe shoes with rubber soles. ? Health and wellness: Get regular checkups with your healthcare provider, plus routine vision and hearing screenings. Talk with your healthcare provider about: o Your medicines and the possible side effects - bring them in a bag if that is easier! o Problems with balance or feeling dizzy o Ways to promote bone health, such as Vitamin D and calcium supplements o Questions or concerns about falling *Ask your healthcare team if you have questions [facility], 2021 documented in this encounter [facility] Work Phone: 11-02-2024 Hospital Discharge instructions Raleigh Stewart DO - 11/02/2024 6:01 PM EDT I am not 100% sure why your left lower extremity is weak I would recommend you follow-up with your primary care doctor and referred to see a specialist such as a neurologist urgent or a loan operations specialist. I also would talk to your primary care doctor but your decrease in appetite and perhaps they can prescribe something to help you with your symptoms. Today your sodium level was 130. The following attachments cannot be sent through Care Everywhere.Minimize Weight Loss (Lebanese)Weakness ED discharge instructions (Lebanese)documented in this encounter [facility] Work Phone: 11-02-2024 Physician Emergency department Note Generalized weakness, weakness of left lower extremity, left hip pain. This 78-year-old white female states that 6 weeks ago she was seen and evaluated in the ED due to complaints of left-sided weakness of her lower extremity she was diagnosed with sciatica and when she was being evaluated for that they diagnosed her with hyponatremia with a sodium of 118 and she was then admitted to the hospital for 3 days and subsequently discharged home. She states last week her left leg gave out on her and she fell onto the left side and since then has not been feeling well. She is concerned that her sodium might be low again. She denies striking her head and denies any neck pain. She states that she has had some increase in pain of her left hip after the fall. She states that she saw Dr. Ram 2 weeks ago and her sodium level was 135 she does take salt tablets at home. 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 Constitutional: General: She is awake. Appearance: Normal appearance. She is normal weight. HENT: Head: Normocephalic and atraumatic. Jaw: There is normal jaw occlusion. Right Ear: Hearing and external ear normal. Left Ear: Hearing and external ear normal. Nose: Nose normal. No congestion or rhinorrhea. Mouth/Throat: Lips: [place]. Mouth: Mucous membranes are moist. Pharynx: Oropharynx is clear. Uvula midline. No oropharyngeal exudate or posterior oropharyngeal erythema. Eyes: General: Lids are normal. Vision grossly intact. Right eye: No discharge. Left eye: No discharge. Extraocular Movements: Extraocular movements intact. Conjunctiva/sclera: Conjunctivae normal. Pupils: Pupils are equal, round, and reactive to light. Neck: Trachea: Trachea and phonation normal. Cardiovascular: Rate and Rhythm: Regular rhythm. Tachycardia present. Pulses: Normal pulses. Heart sounds: Normal heart sounds. No murmur heard. No friction rub. No gallop. Pulmonary: Effort: Pulmonary effort is normal. No respiratory distress. Breath sounds: Normal breath sounds. No stridor. No wheezing, rhonchi or rales. Chest: Chest wall: No tenderness. Abdominal: General: Abdomen is flat. Bowel sounds are normal. There is no distension. Palpations: Abdomen is soft. There is no mass. Tenderness: There is no abdominal tenderness. There is no guarding or rebound. Hernia: No hernia is present. Musculoskeletal: General: No swelling, tenderness, deformity or signs of injury. Normal range of motion. Cervical back: Full passive range of motion without pain, normal range of motion and neck supple. Right lower leg: Normal. No edema. Left lower leg: Normal. No edema. Skin: General: Skin is warm and dry. Capillary Refill: Capillary refill takes less than 2 seconds. Coloration: Skin is not jaundiced or pale. Findings: No bruising, erythema, lesion or rash. Neurological: General: No focal deficit present. Mental Status: She is alert and oriented to person, place, and time. GCS: GCS eye subscore is 4. GCS verbal subscore is 5. GCS motor subscore is 6. Cranial Nerves: Cranial nerves 2-12 are intact. No cranial nerve deficit. Sensory: Sensation is intact. No sensory deficit. Motor: Weakness present. Coordination: Coordination is intact. Coordination normal. Gait: Gait is intact. Deep Tendon Reflexes: Reflexes normal. Comments: Patient does have some mild weakness with holding her left lower extremity up off the bed she is able to do this but it starts to drop. She does complain of sciatica type symptoms with hip flexion and 70 degrees. Upper extremities have normal strength. Patient has some tenderness with palpation over the left greater trochanter. Negative logroll. Still pulses are posterior form present at the dorsalis pedis and tibialis. Psychiatric: Attention and Perception: Attention and perception normal. Mood and Affect: Mood and affect normal. Speech: Speech normal. Behavior: Behavior normal. Behavior is cooperative. Thought Content: Thought content normal. Cognition and Memory: Cognition and memory normal. Judgment: Judgment normal. Labs Reviewed COMPREHENSIVE METABOLIC PANEL - Abnormal Result Value Glucose 111 (*) Sodium 130 (*) Potassium 3.8 Chloride 95 (*) Bicarbonate 27 Anion Gap 12 Urea Nitrogen 17 Creatinine 0.63 eGFR >90 Calcium 9.1 Albumin 3.6 Alkaline Phosphatase 81 Total Protein 7.1 AST 20 Bilirubin, Total 0.5 ALT 21 CBC WITH AUTO DIFFERENTIAL - Abnormal WBC 13.0 (*) nRBC 0.0 RBC 4.12 Hemoglobin 13.2 Hematocrit 38.9 MCV 94 MCH 32.0 MCHC 33.9 RDW 13.5 Platelets 349 Neutrophils % 83.9 Immature Granulocytes %, Automated 1.1 (*) Lymphocytes % 7.9 Monocytes % 6.3 Eosinophils % 0.5 Basophils % 0.3 Neutrophils Absolute 10.87 (*) Immature Granulocytes Absolute, Automated 0.14 Lymphocytes Absolute 1.02 Monocytes Absolute 0.81 (*) Eosinophils Absolute 0.07 Basophils Absolute 0.04 LACTATE - Normal Lactate 1.0 Narrative: Venipuncture immediately after or during the administration of Metamizole may lead to falsely low results. Testing should be performed immediately prior to Metamizole dosing. URINALYSIS WITH REFLEX CULTURE - Normal Color, Urine Yellow Appearance, Urine Clear Specific [place], Urine 1.007 pH, Urine 7.0 Protein, Urine NEGATIVE Glucose, Urine Normal Blood, Urine NEGATIVE Ketones, Urine NEGATIVE Bilirubin, Urine NEGATIVE Urobilinogen, Urine Normal Nitrite, Urine NEGATIVE Leukocyte Esterase, Urine NEGATIVE SERIAL TROPONIN-INITIAL - Normal Troponin I, High Sensitivity 8 Narrative: Less than 99th percentile of normal range cutoff- Female and children under 18 years old <14 ng/L; Male <21 ng/L: Negative Repeat testing should be performed if clinically indicated. Female and children under 18 years old 14-50 ng/L; Male 21-50 ng/L: Consistent with possible cardiac damage and possible increased clinical risk. Serial measurements may help to assess extent of myocardial damage. >50 ng/L: Consistent with cardiac damage, increased clinical risk and myocardial infarction. Serial measurements may help assess extent of myocardial damage. NOTE: Children less than 1 year old may have higher baseline troponin levels and results should be interpreted in conjunction with the overall clinical context. NOTE: Troponin I testing is performed using a different testing methodology at [facility] than at other [facility]. Direct result comparisons should only be made within the same method. SERIAL TROPONIN, 1 HOUR - Normal Troponin I, High Sensitivity 7 Narrative: Less than 99th percentile of normal range cutoff- Female and children under 18 years old <14 ng/L; Male <21 ng/L: Negative Repeat testing should be performed if clinically indicated. Female and children under 18 years old 14-50 ng/L; Male 21-50 ng/L: Consistent with possible cardiac damage and possible increased clinical risk. Serial measurements may help to assess extent of myocardial damage. >50 ng/L: Consistent with cardiac damage, increased clinical risk and myocardial infarction. Serial measurements may help assess extent of myocardial damage. NOTE: Children less than 1 year old may have higher baseline troponin levels and results should be interpreted in conjunction with the overall clinical context. NOTE: Troponin I testing is performed using a different testing methodology at [facility] than at [facility]. Direct result comparisons should only be made within the same method. SARS-COV-2 PCR - Normal Coronavirus 2019, PCR Not Detected Narrative: This assay is an FDA-cleared, in vitro diagnostic nucleic acid amplification test for the qualitative detection and differentiation of SARS CoV-2 from nasopharyngeal specimens collected from individuals with signs and symptoms of respiratory tract infections, and has been validated for use at [facility]. Negative results do not preclude COVID-19 infections and should not be used as the sole basis for diagnosis, treatment, or other management decisions. Testing for SARS CoV-2 is recommended only for patients who meet current clinical and/or epidemiological criteria defined by federal, state, or local public health directives. INFLUENZA A AND B PCR - Normal Flu A Result Not Detected Flu B Result Not Detected Narrative: This assay is an in vitro diagnostic multiplex nucleic acid amplification test for the detection and discrimination of Influenza A & B from nasopharyngeal specimens, and has been validated for use at [facility]. Negative results do not preclude Influenza A/B infections, and should not be used as the sole basis for diagnosis, treatment, or other management decisions. If Influenza A/B and RSV PCR results are negative, testing for Parainfluenza virus, Adenovirus and Metapneumovirus is routinely performed for [facility] pediatric oncology and intensive care inpatients, and is available on other patients by placing an add-on request. RSV PCR - Normal RSV PCR Not Detected Narrative: This assay is an FDA-cleared, in vitro diagnostic nucleic acid amplification test for the detection of RSV from nasopharyngeal specimens, and has been validated for use at [facility]. Negative results do not preclude RSV infections, and should not be used as the sole basis for diagnosis, treatment, or other management decisions. If Influenza A/B and RSV PCR results are negative, testing for Parainfluenza virus, Adenovirus and Metapneumovirus is routinely performed for pediatric oncology and intensive care inpatients at [facility], and is available on other patients by placing an add-on request. TROPONIN SERIES- (INITIAL, 1 HR) Narrative: The following orders were created for panel order Troponin I Series, High Sensitivity (0, 1 HR). Procedure Abnormality Status --------- ------ Troponin I, High Sensiti...[[id number]] Normal Final result Troponin, High Sensitivi...[[id number]] Normal Final result Please view results for these tests on the individual orders. URINALYSIS WITH REFLEX CULTURE Narrative: The following orders were created for panel order Urinalysis with Reflex Culture. Procedure Abnormality Status --------- ------ Urinalysis with Reflex C...[[id number]] Normal Final result Extra Urine Hughes Tube[[id number]] In process Please view results for these tests on the individual orders. EXTRA URINE HUGHES TUBE CT head wo IV contrast Final Result 1. No evidence of acute cortical infarct or intracranial hemorrhage. 2. Opacification of the mastoid air cells bilaterally. MACRO: None Signed by: Chris Piper 11/02/2024 4:28 PM Dictation workstation: [id number] XR chest 1 view Final Result No evidence for acute cardiopulmonary process. If there is clinical concern for acute pulmonary embolic disease or acute aortic pathology, further evaluation with chest CT should be considered for better assessment. Signed by: Ernesto Hemphill 11/02/2024 3:38 PM Dictation workstation: [id number] XR hip left with pelvis when performed 2 or 3 views Final Result Mild osteoarthritis of bilateral hip joints, worse on the right. No evidence for acute displaced fracture or dislocation is seen. Signed by: Ernesto Hemphill 11/02/2024 3:39 PM Dictation workstation: [id number] Procedures Medical Decision Making Patient was seen and evaluated in the ED due to generalized weakness, decrease in appetite, weight loss, fall with injury to left hip. This 78-year-old white female with history of hyperal natremia states that she saw Dr. Ram 2 weeks ago and her sodium level was 135 and she admits to taking salt tablets at home. She also was seen by Dr. Calderon for right wrist carpal tunnel syndrome. The patient admits to a fall because her left leg to give out on her. She had denied striking her head or having loss of consciousness. She clinically does have some weakness of her left lower extremity when attempting to lift it off the cot compared to her right lower extremity. She had minimal sciatic symptoms with complaints of pain at around 65 to 70 degrees of hip flexion. The patient was ordered lab work and imaging including hip x-ray chest x-ray and a CT scan of the brain. Patient does have a mild leukocytosis with a white cell count of 13. Hemoglobin hematocrit was normal. Neutrophil count was elevated at 10.87 absolute monocyte count was elevated 0.81 and immature granulocytes were elevated at 1.1. Glucose was 111 sodium was 130 and chloride was 95. Lactic acid was normal at 1. Urinalysis revealed no evidence of infection troponin and delta troponin were both negative. CT scan imaging of the brain revealed no evidence of acute cortical infarct or intracranial hemorrhage. Opacification of the mastoid air cells bilaterally. The x-rays of the left hip and pelvis revealed mild osteoarthritis of bilateral hip joints worse on the right. No evidence for acute displaced fracture or dislocation seen. X-rays of the chest revealed no evidence for acute or pulmonary process. I then tested the patient for COVID RSV and influenza and these were all negative. After getting CT and lab results I did have a detailed discussion with both the patient and the patient's I told her I am really not sure why she has weakness of her left lower extremity and perhaps she would need outpatient testing such as an EMG and/or consultation with a specialist such as her neurosurgeon or spine surgeon. I also recommended she contact her primary care doctor concerning her lack of appetite and perhaps she could be prescribed medication to help with that. She also wanted to follow-up with her primary care doctor to have her sodium levels monitored. Patient was discharged home with in stable satisfactory condition. Amount and/or Complexity of Data Reviewed ECG/medicine tests: independent interpretation performed. Details: EKG was interpreted by myself at 1509 reveals normal sinus rhythm with Q waves in inferior leads III and aVF. The heart rate is 97 bpm. The MA interval is 128 ms. The QRS durations 86 ms. The QTc is 426 ms. [place] is -1. Diagnoses as of 11/02/241805 Generalized weakness Weakness of left leg Decreased appetite Hyponatremia Raleigh Stewart DO 11/02/241805 [facility] Work Phone: 11-02-2024 Emergency department Note Generalized weakness, weakness of left lower extremity, left hip pain. This 78-year-old white female states that 6 weeks ago she was seen and evaluated in the ED due to complaints of left-sided weakness of her lower extremity she was diagnosed with sciatica and when she was being evaluated for that they diagnosed her with hyponatremia with a sodium of 118 and she was then admitted to the hospital for 3 days and subsequently discharged home. She states last week her left leg gave out on her and she fell onto the left side and since then has not been feeling well. She is concerned that her sodium might be low again. She denies striking her head and denies any neck pain. She states that she has had some increase in pain of her left hip after the fall. She states that she saw Dr. Ram 2 weeks ago and her sodium level was 135 she does take salt tablets at home. 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 Constitutional: General: She is awake. Appearance: Normal appearance. She is normal weight. HENT: Head: Normocephalic and atraumatic. Jaw: There is normal jaw occlusion. Right Ear: Hearing and external ear normal. Left Ear: Hearing and external ear normal. Nose: Nose normal. No congestion or rhinorrhea. Mouth/Throat: Lips: [place]. Mouth: Mucous membranes are moist. Pharynx: Oropharynx is clear. Uvula midline. No oropharyngeal exudate or posterior oropharyngeal erythema. Eyes: General: Lids are normal. Vision grossly intact. Right eye: No discharge. Left eye: No discharge. Extraocular Movements: Extraocular movements intact. Conjunctiva/sclera: Conjunctivae normal. Pupils: Pupils are equal, round, and reactive to light. Neck: Trachea: Trachea and phonation normal. Cardiovascular: Rate and Rhythm: Regular rhythm. Tachycardia present. Pulses: Normal pulses. Heart sounds: Normal heart sounds. No murmur heard. No friction rub. No gallop. Pulmonary: Effort: Pulmonary effort is normal. No respiratory distress. Breath sounds: Normal breath sounds. No stridor. No wheezing, rhonchi or rales. Chest: Chest wall: No tenderness. Abdominal: General: Abdomen is flat. Bowel sounds are normal. There is no distension. Palpations: Abdomen is soft. There is no mass. Tenderness: There is no abdominal tenderness. There is no guarding or rebound. Hernia: No hernia is present. Musculoskeletal: General: No swelling, tenderness, deformity or signs of injury. Normal range of motion. Cervical back: Full passive range of motion without pain, normal range of motion and neck supple. Right lower leg: Normal. No edema. Left lower leg: Normal. No edema. Skin: General: Skin is warm and dry. Capillary Refill: Capillary refill takes less than 2 seconds. Coloration: Skin is not jaundiced or pale. Findings: No bruising, erythema, lesion or rash. Neurological: General: No focal deficit present. Mental Status: She is alert and oriented to person, place, and time. GCS: GCS eye subscore is 4. GCS verbal subscore is 5. GCS motor subscore is 6. Cranial Nerves: Cranial nerves 2-12 are intact. No cranial nerve deficit. Sensory: Sensation is intact. No sensory deficit. Motor: Weakness present. Coordination: Coordination is intact. Coordination normal. Gait: Gait is intact. Deep Tendon Reflexes: Reflexes normal. Comments: Patient does have some mild weakness with holding her left lower extremity up off the bed she is able to do this but it starts to drop. She does complain of sciatica type symptoms with hip flexion and 70 degrees. Upper extremities have normal strength. Patient has some tenderness with palpation over the left greater trochanter. Negative logroll. Still pulses are posterior form present at the dorsalis pedis and tibialis. Psychiatric: Attention and Perception: Attention and perception normal. Mood and Affect: Mood and affect normal. Speech: Speech normal. Behavior: Behavior normal. Behavior is cooperative. Thought Content: Thought content normal. Cognition and Memory: Cognition and memory normal. Judgment: Judgment normal. Labs Reviewed COMPREHENSIVE METABOLIC PANEL - Abnormal Result Value Glucose 111 (*) Sodium 130 (*) Potassium 3.8 Chloride 95 (*) Bicarbonate 27 Anion Gap 12 Urea Nitrogen 17 Creatinine 0.63 eGFR >90 Calcium 9.1 Albumin 3.6 Alkaline Phosphatase 81 Total Protein 7.1 AST 20 Bilirubin, Total 0.5 ALT 21 CBC WITH AUTO DIFFERENTIAL - Abnormal WBC 13.0 (*) nRBC 0.0 RBC 4.12 Hemoglobin 13.2 Hematocrit 38.9 MCV 94 MCH 32.0 MCHC 33.9 RDW 13.5 Platelets 349 Neutrophils % 83.9 Immature Granulocytes %, Automated 1.1 (*) Lymphocytes % 7.9 Monocytes % 6.3 Eosinophils % 0.5 Basophils % 0.3 Neutrophils Absolute 10.87 (*) Immature Granulocytes Absolute, Automated 0.14 Lymphocytes Absolute 1.02 Monocytes Absolute 0.81 (*) Eosinophils Absolute 0.07 Basophils Absolute 0.04 LACTATE - Normal Lactate 1.0 Narrative: Venipuncture immediately after or during the administration of Metamizole may lead to falsely low results. Testing should be performed immediately prior to Metamizole dosing. URINALYSIS WITH REFLEX CULTURE - Normal Color, Urine Yellow Appearance, Urine Clear Specific [place], Urine 1.007 pH, Urine 7.0 Protein, Urine NEGATIVE Glucose, Urine Normal Blood, Urine NEGATIVE Ketones, Urine NEGATIVE Bilirubin, Urine NEGATIVE Urobilinogen, Urine Normal Nitrite, Urine NEGATIVE Leukocyte Esterase, Urine NEGATIVE SERIAL TROPONIN-INITIAL - Normal Troponin I, High Sensitivity 8 Narrative: Less than 99th percentile of normal range cutoff- Female and children under 18 years old <14 ng/L; Male <21 ng/L: Negative Repeat testing should be performed if clinically indicated. Female and children under 18 years old 14-50 ng/L; Male 21-50 ng/L: Consistent with possible cardiac damage and possible increased clinical risk. Serial measurements may help to assess extent of myocardial damage. >50 ng/L: Consistent with cardiac damage, increased clinical risk and myocardial infarction. Serial measurements may help assess extent of myocardial damage. NOTE: Children less than 1 year old may have higher baseline troponin levels and results should be interpreted in conjunction with the overall clinical context. NOTE: Troponin I testing is performed using a different testing methodology at [facility] than at other [facility]. Direct result comparisons should only be made within the same method. SERIAL TROPONIN, 1 HOUR - Normal Troponin I, High Sensitivity 7 Narrative: Less than 99th percentile of normal range cutoff- Female and children under 18 years old <14 ng/L; Male <21 ng/L: Negative Repeat testing should be performed if clinically indicated. Female and children under 18 years old 14-50 ng/L; Male 21-50 ng/L: Consistent with possible cardiac damage and possible increased clinical risk. Serial measurements may help to assess extent of myocardial damage. >50 ng/L: Consistent with cardiac damage, increased clinical risk and myocardial infarction. Serial measurements may help assess extent of myocardial damage. NOTE: Children less than 1 year old may have higher baseline troponin levels and results should be interpreted in conjunction with the overall clinical context. NOTE: Troponin I testing is performed using a different testing methodology at [facility] than at [facility]. Direct result comparisons should only be made within the same method. SARS-COV-2 PCR - Normal Coronavirus 2019, PCR Not Detected Narrative: This assay is an FDA-cleared, in vitro diagnostic nucleic acid amplification test for the qualitative detection and differentiation of SARS CoV-2 from nasopharyngeal specimens collected from individuals with signs and symptoms of respiratory tract infections, and has been validated for use at [facility]. Negative results do not preclude COVID-19 infections and should not be used as the sole basis for diagnosis, treatment, or other management decisions. Testing for SARS CoV-2 is recommended only for patients who meet current clinical and/or epidemiological criteria defined by federal, state, or local public health directives. INFLUENZA A AND B PCR - Normal Flu A Result Not Detected Flu B Result Not Detected Narrative: This assay is an in vitro diagnostic multiplex nucleic acid amplification test for the detection and discrimination of Influenza A & B from nasopharyngeal specimens, and has been validated for use at [facility]. Negative results do not preclude Influenza A/B infections, and should not be used as the sole basis for diagnosis, treatment, or other management decisions. If Influenza A/B and RSV PCR results are negative, testing for Parainfluenza virus, Adenovirus and Metapneumovirus is routinely performed for [facility] pediatric oncology and intensive care inpatients, and is available on other patients by placing an add-on request. RSV PCR - Normal RSV PCR Not Detected Narrative: This assay is an FDA-cleared, in vitro diagnostic nucleic acid amplification test for the detection of RSV from nasopharyngeal specimens, and has been validated for use at [facility]. Negative results do not preclude RSV infections, and should not be used as the sole basis for diagnosis, treatment, or other management decisions. If Influenza A/B and RSV PCR results are negative, testing for Parainfluenza virus, Adenovirus and Metapneumovirus is routinely performed for pediatric oncology and intensive care inpatients at [facility], and is available on other patients by placing an add-on request. TROPONIN SERIES- (INITIAL, 1 HR) Narrative: The following orders were created for panel order Troponin I Series, High Sensitivity (0, 1 HR). Procedure Abnormality Status --------- ------ Troponin I, High Sensiti...[[id number]] Normal Final result Troponin, High Sensitivi...[[id number]] Normal Final result Please view results for these tests on the individual orders. URINALYSIS WITH REFLEX CULTURE Narrative: The following orders were created for panel order Urinalysis with Reflex Culture. Procedure Abnormality Status --------- ------ Urinalysis with Reflex C...[[id number]] Normal Final result Extra Urine Hughes Tube[[id number]] In process Please view results for these tests on the individual orders. EXTRA URINE HUGHES TUBE CT head wo IV contrast Final Result 1. No evidence of acute cortical infarct or intracranial hemorrhage. 2. Opacification of the mastoid air cells bilaterally. MACRO: None Signed by: Chris Piper 11/02/2024 4:28 PM Dictation workstation: [id number] XR chest 1 view Final Result No evidence for acute cardiopulmonary process. If there is clinical concern for acute pulmonary embolic disease or acute aortic pathology, further evaluation with chest CT should be considered for better assessment. Signed by: Ernesto Hemphill 11/02/2024 3:38 PM Dictation workstation: [id number] XR hip left with pelvis when performed 2 or 3 views Final Result Mild osteoarthritis of bilateral hip joints, worse on the right. No evidence for acute displaced fracture or dislocation is seen. Signed by: Ernesto Hemphill 11/02/2024 3:39 PM Dictation workstation: [id number] Procedures Medical Decision Making Patient was seen and evaluated in the ED due to generalized weakness, decrease in appetite, weight loss, fall with injury to left hip. This 78-year-old white female with history of hyperal natremia states that she saw Dr. Ram 2 weeks ago and her sodium level was 135 and she admits to taking salt tablets at home. She also was seen by Dr. Calderon for right wrist carpal tunnel syndrome. The patient admits to a fall because her left leg to give out on her. She had denied striking her head or having loss of consciousness. She clinically does have some weakness of her left lower extremity when attempting to lift it off the cot compared to her right lower extremity. She had minimal sciatic symptoms with complaints of pain at around 65 to 70 degrees of hip flexion. The patient was ordered lab work and imaging including hip x-ray chest x-ray and a CT scan of the brain. Patient does have a mild leukocytosis with a white cell count of 13. Hemoglobin hematocrit was normal. Neutrophil count was elevated at 10.87 absolute monocyte count was elevated 0.81 and immature granulocytes were elevated at 1.1. Glucose was 111 sodium was 130 and chloride was 95. Lactic acid was normal at 1. Urinalysis revealed no evidence of infection troponin and delta troponin were both negative. CT scan imaging of the brain revealed no evidence of acute cortical infarct or intracranial hemorrhage. Opacification of the mastoid air cells bilaterally. The x-rays of the left hip and pelvis revealed mild osteoarthritis of bilateral hip joints worse on the right. No evidence for acute displaced fracture or dislocation seen. X-rays of the chest revealed no evidence for acute or pulmonary process. I then tested the patient for COVID RSV and influenza and these were all negative. After getting CT and lab results I did have a detailed discussion with both the patient and the patient's I told her I am really not sure why she has weakness of her left lower extremity and perhaps she would need outpatient testing such as an EMG and/or consultation with a specialist such as her neurosurgeon or spine surgeon. I also recommended she contact her primary care doctor concerning her lack of appetite and perhaps she could be prescribed medication to help with that. She also wanted to follow-up with her primary care doctor to have her sodium levels monitored. Patient was discharged home with in stable satisfactory condition. Amount and/or Complexity of Data Reviewed ECG/medicine tests: independent interpretation performed. Details: EKG was interpreted by myself at 1509 reveals normal sinus rhythm with Q waves in inferior leads III and aVF. The heart rate is 97 bpm. The MA interval is 128 ms. The QRS durations 86 ms. The QTc is 426 ms. [place] is -1. Diagnoses as of 11/02/24 180 Generalized weakness Weakness of left leg Decreased appetite Hyponatremia Raleigh Stewart DO 11/02/24 180 documented in this encounter [facility] Work Phone: 11-01-2024 Evaluation + Plan note Associated Problem(s): Right carpal tunnel syndrome Assessment: Right carpal tunnel syndrome with some early left wrist symptoms Plan: Cock up wrist splints Voltaren gel Nonsteroidal anti-inflammatories Avoidance of activities that aggravate I discussed risks and benefits of various treatment options including surgical release of the median nerve at the carpal canal [facility] Work Phone: 11-01-2024 Miscellaneous Notes Associated Problem(s): Right carpal tunnel syndrome Assessment: Right carpal tunnel syndrome with some early left wrist symptoms Plan: Cock up wrist splints Voltaren gel Nonsteroidal anti-inflammatories Avoidance of activities that aggravate I discussed risks and benefits of various treatment options including surgical release of the median nerve at the carpal canal documented in this encounter [facility] Work Phone: 11-01-2024 History of Present illness Narrative Assessment/Plan Encounter Diagnoses: Right carpal tunnel syndrome Right hand pain No problem-specific Assessment & Plan notes found for this encounter. Right carpal tunnel syndrome Assessment: Right carpal tunnel syndrome with some early left wrist symptoms Plan: Cock up wrist splints Voltaren gel Nonsteroidal anti-inflammatories Avoidance of activities that aggravate I discussed risks and benefits of various treatment options including surgical release of the median nerve at the carpal canal Subjective Patient ID: Uzma Duran is a 78 y.o. female. Chief Complaint: New Patient Visit of the Right Wrist (X-RAYS 11-01-24/10-21-24 EMG/Has braces wearing them at night ) Last Surgery: No surgery found Last Surgery Date: No surgery found HPI 78-year-old comes in today stating about 2 months ago she fell onto her outstretched hands. Subsequently she began having median nerve symptoms with numbness and tingling. Ultimately this did not improve and she obtained an EMG nerve conduction study. This showed involvement of the median nerve in the right wrist but without axonal findings. She was referred to us for definitive orthopedic evaluation. OBJECTIVE: ORTHO EXAM Right wrist/hand: No obvious swelling or masses Thenar eminence muscle mass: Within normal limits No atrophy noted of hypothenar eminence Equivocal Tinel's at carpal tunnel + Median nerve compression test- Eric's Test + Phalen's test Decreased sensation to light touch and 2 point discrimination in median nerve distribution Motor exam within normal limits Good capillary refill She does have some hypnesthesia's in the ulnar nerve distribution these are mild. She had a negative Tinel's and Phalen's at the elbow. She is able to cross and crisscross her fingers but has some difficulty doing repetitive reciprocal crossing. No intrinsic atrophy is noted. Left wrist/hand: No obvious swelling or masses Thenar eminence muscle mass: Within normal limits No atrophy noted of hypothenar eminence Negative Tinel's at carpal tunnel + Median nerve compression test- Eric's Test-and Phalen's test was equivocal + Phalen's test-equivocal decreased sensation to light touch and 2 point discrimination in median nerve distribution Motor exam within normal limits Good capillary refill IMAGE RESULTS: Point of Care Ultrasound These images are not reportable by radiology and will not be interpreted by Radiologists. ULTRASOUND Wrist Ultrasound DIAGNOSTIC ULTRASOUND REPORT FINAL: Right HAND AND WRIST [employer] Set Up Operator: Savanna Calderon MD Procedure: Ultrasound, extremity, nonvascular, real-time, COMPLETE, anatomic specific. Indication: Wrist Pain Technique: B-Mode Ultrasound Examination performed using 8-13 MHz linear transducer with [employer] Software STUDY TYPE: 1. ULTRASOUND EXTREMITY 2. REAL TIME WITH IMAGE DOCUMENTATION 3. NON-VASCULAR 4. COMPLETE STUDY Site: LEFT HAND AND WRIST Live ultrasound was performed with the patient's HAND AND WRIST and PERMANENTLY documented. COMPLETE and FINAL ULTRASOUND REPORT of the patient's HAND AND WRIST. . I personally performed the ultrasound and reviewed the findings. These show: Live ultrasound was performed of the patient's HAND AND WRIST that shows intact Extensor digitorum communis, Extensor digiti minimi, Extensor indicis proprius, Extensor Pollicus Longus, Flexor Pollicus Longus, Flexor digitorum profundus, Flexor digitorum superficialis tendon with the THENAR and HYPOTHENAR muscle fibers showing normal striations. NO FLUID NOTED WITHIN THE CARPAL TUNNEL, THE MEDIAN NERVE SHOWS NORMAL PATTERN OF ECHOGENICITY. The median n. remains swollen. The tendons appear normal in appearance and size as they pass the styloid process. No fracture is appreciated. Nonsterile gloves were used for this procedure gauze pads were then used to clean the area after the procedure was compete. The patient tolerated the procedure well. Some min arthritis to thumb CMC joint. Med. nerve is swollen with an echogenic halo. Wrist Ultrasound DIAGNOSTIC ULTRASOUND REPORT FINAL: Left HAND AND WRIST [employer] Set Up Operator: Savanna Calderon MD Procedure: Ultrasound, extremity, nonvascular, real-time, COMPLETE, anatomic specific. Indication: Wrist Pain Technique: B-Mode Ultrasound Examination performed using 8-13 MHz linear transducer with [employer] Software STUDY TYPE: 1. ULTRASOUND EXTREMITY 2. REAL TIME WITH IMAGE DOCUMENTATION 3. NON-VASCULAR 4. COMPLETE STUDY Site: LEFT HAND AND WRIST Live ultrasound was performed with the patient's HAND AND WRIST and PERMANENTLY documented. COMPLETE and FINAL ULTRASOUND REPORT of the patient's HAND AND WRIST. . I personally performed the ultrasound and reviewed the findings. These show: Live ultrasound was performed of the patient's HAND AND WRIST that shows intact Extensor digitorum communis, Extensor digiti minimi, Extensor indicis proprius, Extensor Pollicus Longus, Flexor Pollicus Longus, Flexor digitorum profundus, Flexor digitorum superficialis tendon with the THENAR and HYPOTHENAR muscle fibers showing normal striations. NO FLUID NOTED WITHIN THE CARPAL TUNNEL, THE MEDIAN NERVE SHOWS NORMAL PATTERN OF ECHOGENICITY. The median n. remains swollen. The tendons appear normal in appearance and size as they pass the styloid process. No fracture is appreciated. Nonsterile gloves were used for this procedure gauze pads were then used to clean the area after the procedure was compete. The patient tolerated the procedure well. Some min arthritis to thumb CMC joint. Med. nerve is slightly swollen with an echogenic halo. Procedures Orders Placed This Encounter XR hand right 3+ views Point of Care Ultrasound diclofenac sodium (Voltaren) 1 % gel The contents of this note were dictated into the [email or web address] software. Sometimes errors in wording, punctuation, or spelling are seen. documented in this encounter [facility] Work Phone: 10-29-2024 History of Present illness Narrative Here to discuss sleep issues; stopped taking potassium that Dr. Ram prescribed; called to let him know; never heard back from his office. Subjective Uzma Duran is a 78 y.o. female who presents for Follow-up. HPI Pt here with spouse. Follow up multiple issues, see previous notes. Recent hospital stay for rather incidental discovery of profound hyponatremia, found at presentation of severe lumbar radicular pain. States she is not sleeping well. Last four nights she has difficulty falling asleep. Barely slept last four nights. Lumbar radiculopathy, pain is better after injection through Dr Horn, pain management. States now a 3/10, worse in evening. Stopped duloxetine as she had no pain after her injection as her pain was better. She stopped that due to nausea. Does not think the pain is keeping her awake at this point. Taking tylenol and tylenol pm. Getting PT , is better. Improving , not back to baseline. Nausea. Right before dinner time. States has to put ice pack on her neck. Reports has lost weight. Right carpal tunnel, had emg, needs ortho eval. For two days has had symptoms in left hand and wants EMG in left hand. Recommend we get her to ortho. Recommend she wear bilateral carpal tunnel braces at night and when she can during the day. Do not recommend EMG yet for left hands, if brace does not help and persists will consider. Had recent normal b12 and tsh. Hyponatremia, on lasix and sodium, potassium 2.9 last visit potassium was added. She only took 1/2 pill and felt nauseous so hasn't taken any since. Discussed the risks of low potassium and lasix. She states nephrology cut her lasix back to 20 bid from 40 bid due to side effects. We reviewed the message from nephrology where they called her back regarding her potassium questions. Recommend she resume potassium as directed. It is likely contributing to why she is feeling so poorly and can be life threatening if not corrected, she verbalized understanding. States spouse wonders if she needs stomach testing. We discussed I do not think that is necessary yet. I think her symptoms are in large part medication and or not taking as directed induced. Review of Systems All other systems reviewed and are negative. . Allergies[1] Medications Ordered Prior to Encounter[2] Problem List[3] Objective Visit Vitals BP 128/80 (BP Location: Left arm, Patient Position: Sitting) Pulse 88 Physical Exam Vitals and nursing note reviewed. Constitutional: General: She is not in acute distress. Appearance: Normal appearance. She is not toxic-appearing. HENT: Head: Normocephalic and atraumatic. Cardiovascular: Rate and Rhythm: Normal rate and regular rhythm. Heart sounds: No murmur heard. Pulmonary: Effort: Pulmonary effort is normal. Breath sounds: Normal breath sounds. Musculoskeletal: Cervical back: Neck supple. No rigidity. Comments: Skin: General: Skin is warm and dry. Neurological: General: No focal deficit present. Mental Status: She is alert and oriented to person, place, and time. Psychiatric: Mood and Affect: Mood normal. Behavior: Behavior normal. Assessment/Plan Problem List Items Addressed This Visit Hyponatremia Relevant Medications furosemide (Lasix) 20 mg tablet Other Relevant Orders CBC Basic Metabolic Panel Hypokalemia Other Visit Diagnoses Right carpal tunnel syndrome - Primary Relevant Orders Referral to Orthopedics and Sports Medicine Mood change Relevant Medications mirtazapine (Remeron) 7.5 mg tablet Nausea Relevant Medications ondansetron ODT (Zofran-ODT) 8 mg disintegrating tablet Noncompliance with medication regimen Trial of zofran. Take lasix and potassium as directed. Follow up 1 week with labs prior. Remeron at bedtime to try and help with sleep and appetite. Time Spent Time spent directly with patient, family or caregiver: 32 minutes Documentation Time: 10 minutes Call concerns. As per hpi. Cyndi Horn MD [1] Allergies Allergen Reactions Amlodipine Swelling Ankle swelling Penicillins Rash [2] Current Outpatient Medications on File Prior to Visit Medication Sig Dispense Refill ascorbic acid/collagen hydr (COLLAGEN SKIN RENEWAL ORAL) Take by mouth once daily. atorvastatin (Lipitor) 40 mg tablet Take 0.5 tablets (20 mg) by mouth once daily. cyanocobalamin, vitamin B-12, (VITAMIN B-12 ORAL) Take 1 tablet by mouth early in the morning.. docosahexaenoic acid/epa (FISH OIL ORAL) Take 1 capsule by mouth early in the morning.. L. acidophilus/Bifid. animalis 32 billion cell capsule Take by mouth. sodium chloride 1,000 mg tablet Take 2 tablets (2 g) by mouth 2 times daily (morning and late afternoon). 120 tablet 1 [DISCONTINUED] furosemide (Lasix) 20 mg tablet Take 2 tablets (40 mg) by mouth 2 times daily (morning and late afternoon). (Patient taking differently: Take 1 tablet (20 mg) by mouth 2 times daily (morning and late afternoon).) 60 tablet 1 potassium chloride CR 20 mEq ER tablet Take 1 tablet (20 mEq) by mouth once daily. Do not crush or chew. (Patient not taking: Reported on 10/29/2024) 30 tablet 11 sfocxjo-arju-rvmyh-oreg-capryl 100 mg-150 mg- 50 mg-150 mg capsule Take 1 capsule by mouth early in the morning.. (Patient not taking: Reported on 10/29/2024) zinc gluconate 50 mg elemental tablet Take 1 tablet by mouth once daily. (Patient not taking: Reported on 10/29/2024) [DISCONTINUED] DULoxetine (Cymbalta) [address] capsule Take 1 capsule (30 mg) by mouth once daily. Do not crush or chew. Take in the morning with food. (Patient not taking: Reported on 10/29/2024) 30 capsule 0 [DISCONTINUED] methocarbamol (Robaxin) 500 mg tablet Take 1 tablet (500 mg) by mouth as needed at bedtime for muscle spasms for up to 10 days. 10 tablet 0 [DISCONTINUED] predniSONE (Deltasone) 10 mg tablet 4 tabs daily for 3 days, 3 tabs daily for 3 days, 2 tabs daily for 3 days, 1 tab daily for 3 days, then discontinue 30 tablet 0 No current facility-administered medications on file prior to visit. [3] Patient Active Problem List Diagnosis Elevated glucose Hyperlipidemia Multiple thyroid nodules Osteoporosis Severe obstructive sleep apnea Tubular adenoma of colon Hypertension Agatston CAC score, >400 Hyponatremia Lumbar radiculopathy Hypokalemia documented in this encounter [facility] Work Phone: 10-21-2024 Note [facility] Nerve Conduction & EMG Report Full Name: Uzma Duran Date of : 1945 Visit Date: 10/21/2024 9:19 AM Age: 78 Years Examining MD: Rashmi Cohen MD Referring Physician: Cyndi Horn MD Temperature: 35.7 Height: 4 feet 11 inch Referred for: EMG:RUE numbness and paresthesia for 3 weeks. No neck pain or DM. Plan: The study is design to evaluate for radiculopathy, plexopathy, entrapment neuropathy, median or ulnar neuropathy. Indication, risk, side effects, and alternatives were explained. Verbal consent obtained and patient agreed to proceed. Patient was instructed to clean the puncture site with soap and water and put some ice pack for bruising. Impression: This is an abnormal EMG. There is electrodiagnostic evidence of a right median nerve entrapment at the wrist without axonal damage at this time. There is also electrodiagnostic evidence of a right ulnar nerve entrapment across the elbow without axonal damage. There is NO electrodiagnostic evidence of right cervical radiculopathy or brachial plexopathy. EMG Summary: The right median motor nerve conduction study showed prolonged distal latency, decreased amplitude and normal conduction velocity. The right median sensory nerve conduction study showed prolonged distal latency and normal amplitude. The right ulnar motor nerve conduction study showed normal latency and amplitude with reduced conduction velocity across the elbow to 46.2 m/s. The right ulnar sensory nerve conduction study was normal. The right radial, medial and lateral antebrachial cutaneous sensory nerve conduction studies were normal. Needle EMG of the muscles tested showed no abnormal spontaneous activity. Normal motor unit action potentials and recruitment patterns were seen. Rashmi Cohen MD Diplomate, ABPN, NBPAS Clinical Neurophysiology, Neurology, Vascular Neurology and Sleep Medicine [facility] [place] [phone] Motor NCS Nerve / Sites Muscle Latency Amplitude Distance Velocity ms mV cm m/s R Median - APB Wrist APB 5.02 3.4 7 Elbow APB 8.58 3.4 19 53.3 R Ulnar - ADM Wrist ADM 2.88 8.9 6.5 B.Elbow ADM 6.25 8.0 19 56.3 A.Elbow ADM 8.42 7.5 10 46.2 Sensory NCS Nerve / Sites Peak Amp Amp.2-3 Distance Velocity ms V V cm m/s R Median - Digit II Wrist 4.04 53.7 90.8 13 42 R Ulnar - Digit V Wrist 2.67 20.5 10.7 11 60 R Radial - Snuff Forearm 2.35 52.2 47.7 10 57 R Lateral antebrachial cutaneous - Forearm Elbow 1.58 12.8 6.9 12 125 R Medial antebrachial cutaneous - Forearm Elbow 1.60 14.6 9.9 12 103 EMG Summary Table Spontaneous Activity Amplitude Duration Recruitment Polyphasia Activation Comment Muscle Ins Act Fib PSW Fasc - - - - - - R. Deltoid Normal 0 0 0 Normal Normal Normal Normal Normal Normal R. Triceps brachii Normal 0 0 0 Normal Normal Normal Normal Normal Normal R. Biceps brachii Normal 0 0 0 Normal Normal Normal Normal Normal Normal R. Pronator teres Normal 0 0 0 Normal Normal Normal Normal Normal Normal R. Extensor digitorum communis Normal 0 0 0 Normal Normal Normal Normal Normal Normal R. First dorsal interosseous Normal 0 0 0 Normal Normal Normal Normal Normal Normal R. Abductor pollicis brevis Normal 0 0 0 Normal Normal Normal Normal Normal Normal R. Flexor carpi ulnaris Normal 0 0 0 Normal Normal Normal Normal Normal Normal R. Abductor digiti minimi (manus) Normal 0 0 0 Normal Normal Normal Normal Normal Normal NORMAL VALUES FOR NERVE CONDUCTION STUDIES MOTOR Location of Recording Distance (cm) Distal Latency (msec) Amplitude (mV) CV (m/sec) Median APB 7 <4.5 >4.0 >48 Ulnar ADM 6.5 <3.6 >6.0 >51 Radial EDC - <3.1 - >67 Peroneal EDB 8.5 <6.6 >2.0 >41 Peroneal TA 10 <6.8 >5.1 >43 Tibial AH 8 <6.1 >4.0 >40 SENSORY Location of Recording Distance (cm) Distal Latency (msec) Amplitude (?V) CV (m/sec) Median Anti Digit 2 13 <3.6 >15 >56 Ulnar Anti Digit 5 11 <3.1 >10 >54 Radial Anti Snuff 10 <2.9 >15 >49 Median Palm Median Wrist 8 <2.3 >50 >56 Ulnar Palm Ulnar Wrist 8 <2.3 >15 >55 Median Ortho Median Wrist 13 <3.6 >10 - Ulnar Ortho Ulnar Wrist 11 <3.1 >0 - Sural L Malleolus 14 <4.5 >6 (<60yo) >40 Sup. Peroneal Ankle 14 <4.1 >0 - Med Plantar M Malleolus 12-14 <4.0 >7 (<55yo) - Lat Plantar M Malleolus - <4.6 >3 (<55yo) - Source of normal values: [facility] EMG Date/Time: 10/21/2024 9:29 AM Performed by: Rasmhi Cohen MD Authorized by: Rashmi Cohen MD Verbal consent: obtained Consent given by: patient Time out: Immediately prior to procedure a time out was called to verify the correct patient, procedure, equipment, director sales support and site/side marked as required. Patient tolerance: Patient tolerated the procedure well with no immediate complications AUTHENTICATED BY RASHMI COHEN, ON 10/21/2024 09:32:59 [facility] 10-21-2024 History of Present illness Narrative Associated Order(s): EMG Post-Procedure Diagnose(s): Carpal tunnel syndrome on right; Ulnar neuropathy at elbow, right Images from the original note were not included. [facility] Nerve Conduction & EMG Report Full Name: Uzma Duran Date of : 1945 Visit Date: 10/21/2024 9:19 AM Age: 78 Years Examining MD: Rashmi Cohen MD Referring Physician: Cyndi Horn MD Temperature: 35.7 Height: 4 feet 11 inch Referred for: EMG:RUE numbness and paresthesia for 3 weeks. No neck pain or DM. Plan: The study is design to evaluate for radiculopathy, plexopathy, entrapment neuropathy, median or ulnar neuropathy. Indication, risk, side effects, and alternatives were explained. Verbal consent obtained and patient agreed to proceed. Patient was instructed to clean the puncture site with soap and water and put some ice pack for bruising. Impression: This is an abnormal EMG. There is electrodiagnostic evidence of a right median nerve entrapment at the wrist without axonal damage at this time. There is also electrodiagnostic evidence of a right ulnar nerve entrapment across the elbow without axonal damage. There is NO electrodiagnostic evidence of right cervical radiculopathy or brachial plexopathy. EMG Summary: The right median motor nerve conduction study showed prolonged distal latency, decreased amplitude and normal conduction velocity. The right median sensory nerve conduction study showed prolonged distal latency and normal amplitude. The right ulnar motor nerve conduction study showed normal latency and amplitude with reduced conduction velocity across the elbow to 46.2 m/s. The right ulnar sensory nerve conduction study was normal. The right radial, medial and lateral antebrachial cutaneous sensory nerve conduction studies were normal. Needle EMG of the muscles tested showed no abnormal spontaneous activity. Normal motor unit action potentials and recruitment patterns were seen. Rashmi Cohen MD Diplomate, ABPN, NBPAS Clinical Neurophysiology, Neurology, Vascular Neurology and Sleep Medicine [facility] [place] [id number] [phone] Motor NCS Nerve / Sites Muscle Latency Amplitude Distance Velocity ms mV cm m/s R Median - APB Wrist APB 5.02 3.4 7 Elbow APB 8.58 3.4 19 53.3 R Ulnar - ADM Wrist ADM 2.88 8.9 6.5 B.Elbow ADM 6.25 8.0 19 56.3 A.Elbow ADM 8.42 7.5 10 46.2 Sensory NCS Nerve / Sites Peak Amp Amp.2-3 Distance Velocity ms V V cm m/s R Median - Digit II Wrist 4.04 53.7 90.8 13 42 R Ulnar - Digit V Wrist 2.67 20.5 10.7 11 60 R Radial - Snuff Forearm 2.35 52.2 47.7 10 57 R Lateral antebrachial cutaneous - Forearm Elbow 1.58 12.8 6.9 12 125 R Medial antebrachial cutaneous - Forearm Elbow 1.60 14.6 9.9 12 103 EMG Summary Table Spontaneous Activity Amplitude Duration Recruitment Polyphasia Activation Comment Muscle Ins Act Fib PSW Fasc - - - - - - R. Deltoid Normal 0 0 0 Normal Normal Normal Normal Normal Normal R. Triceps brachii Normal 0 0 0 Normal Normal Normal Normal Normal Normal R. Biceps brachii Normal 0 0 0 Normal Normal Normal Normal Normal Normal R. Pronator teres Normal 0 0 0 Normal Normal Normal Normal Normal Normal R. Extensor digitorum communis Normal 0 0 0 Normal Normal Normal Normal Normal Normal R. First dorsal interosseous Normal 0 0 0 Normal Normal Normal Normal Normal Normal R. Abductor pollicis brevis Normal 0 0 0 Normal Normal Normal Normal Normal Normal R. Flexor carpi ulnaris Normal 0 0 0 Normal Normal Normal Normal Normal Normal R. Abductor digiti minimi (manus) Normal 0 0 0 Normal Normal Normal Normal Normal Normal NORMAL VALUES FOR NERVE CONDUCTION STUDIES MOTOR Location of Recording Distance (cm) Distal Latency (msec) Amplitude (mV) CV (m/sec) Median APB 7 <4.5 >4.0 >48 Ulnar ADM 6.5 <3.6 >6.0 >51 Radial EDC - <3.1 - >67 Peroneal EDB 8.5 <6.6 >2.0 >41 Peroneal TA 10 <6.8 >5.1 >43 Tibial AH 8 <6.1 >4.0 >40 SENSORY Location of Recording Distance (cm) Distal Latency (msec) Amplitude (?V) CV (m/sec) Median Anti Digit 2 13 <3.6 >15 >56 Ulnar Anti Digit 5 11 <3.1 >10 >54 Radial Anti Snuff 10 <2.9 >15 >49 Median Palm Median Wrist 8 <2.3 >50 >56 Ulnar Palm Ulnar Wrist 8 <2.3 >15 >55 Median Ortho Median Wrist 13 <3.6 >10 - Ulnar Ortho Ulnar Wrist 11 <3.1 >0 - Sural L Malleolus 14 <4.5 >6 (<60yo) >40 Sup. Peroneal Ankle 14 <4.1 >0 - Med Plantar M Malleolus 12-14 <4.0 >7 (<55yo) - Lat Plantar M Malleolus - <4.6 >3 (<55yo) - Source of normal values: [facility] EMG Date/Time: 10/21/2024 9:29 AM Performed by: Rashmi Cohen MD Authorized by: Rashmi Cohen MD Verbal consent: obtained Consent given by: patient Time out: Immediately prior to procedure a time out was called to verify the correct patient, procedure, equipment, director sales support and site/side marked as required. Patient tolerance: Patient tolerated the procedure well with no immediate complications documented in this encounter [facility] 10-17-2024 History of Present illness Narrative Subjective She had a spinal injection. Swelling is gone. Walking with a walker Doing rehab. Patient ID: Uzma Duran is a 78 y.o. female who presents for Follow-up (2 weeks/Review labs 10/14). HPI She is here for follow-up secondary to hyponatremia with underlying SIADH. At last visit we increased her Lasix she was also having some peripheral edema and volume overload Labs were completed on the glucose is 114 BUN 23 with a creatinine of 0.9 sodium is up to 135 and normal range her potassium dropped to 2.9 bicarb is 26 calcium 8.4 medications are reviewed she is on Lasix as well as the salt tablets. Her blood pressure is 118/68 Review of Systems Constitutional: Negative. HENT: Negative. Eyes: Negative. Respiratory: Negative. Cardiovascular: Negative. Gastrointestinal: Negative. Endocrine: Negative. Genitourinary: Negative. Musculoskeletal: Negative. Skin: Negative. Allergic/Immunologic: Negative. Neurological: Negative. Hematological: Negative. Psychiatric/Behavioral: Negative. Objective Physical Exam Constitutional: Appearance: Normal appearance. HENT: Head: Normocephalic and atraumatic. Right Ear: External ear normal. Left Ear: External ear normal. Nose: Nose normal. Mouth/Throat: Mouth: Mucous membranes are moist. Pharynx: Oropharynx is clear. Eyes: Extraocular Movements: Extraocular movements intact. Conjunctiva/sclera: Conjunctivae normal. Pupils: Pupils are equal, round, and reactive to light. Cardiovascular: Rate and Rhythm: Normal rate and regular rhythm. Pulmonary: Effort: Pulmonary effort is normal. Breath sounds: Normal breath sounds. Abdominal: General: Abdomen is flat. Palpations: Abdomen is soft. Skin: General: Skin is warm and dry. Neurological: General: No focal deficit present. Mental Status: She is alert and oriented to person, place, and time. Psychiatric: Mood and Affect: Mood normal. Behavior: Behavior normal. Assessment/Plan Problem List Items Addressed This Visit ICD-10-CM Severe obstructive sleep apnea G47.33 Hyponatremia - Primary E87.1 Relevant Orders Basic metabolic panel Follow Up In Nephrology Hypokalemia E87.6 Relevant Medications potassium chloride CR 20 mEq ER tablet Plan: Start Potassium 20 mEq daily. Liberalize K rich food intake. Stay on Salt tabs as on. Decrease lasix to 20 mg 2x/day. If swelling occurs then take 40 mg till back and then back to 20. Recheck labs in 3 months. 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 The patient was examined and there are no changes to the H&P. Source Note - Tarik Horn DO - 10/02/2024 2:45 PM EDT Subjective Patient ID: Uzma Duran is a 78 y.o. female who presents for Back Pain (NEW PATIENT, LEFT LOWER BACK AND BILATERAL LEG SCIATIC PAIN AND WEAKNESS FOR THE PAST 4 WEEKS,NUMBNESS TO RIGHT LEG, SHE HAS FALLEN THREE TIMES TRYING TO STEP UP AND HER LEFT LEG GAVE OUT SHE BRACED HERSELF WITH HER RIGHT HAND AND HAS TINGLING WAITING ON EMG, SHE HAS WEAKNESS IN THE LEFT LEG CANNOT EVEN LIFT HER LEFT LEG, VERY PAINFUL, SHE WAS GIVEN PREDNISONE AND DID GET RELIEF WITH THE TAPER PACK, SHE TAKES TRAMADOL AND TYLENOL,). SHE HAS ANOTHER PENDING SCRIPT FOR PREDNISONE TO START IF DR. HORN RECOMMENDS, SHE HAD NAUSEA ON GABAPENTIN, METHOCARBAMOL DID NOT HELP, SHE HAD AN EVALUATION FOR PHYSICAL THERAPY AND IS SCHEDULED FOR VISITS , MRI ORDERED WAITING ON INSURANCE, SHE SLEEPS IN THE RECLINER, BOTH FEET STARTED SWELLING 2 DAYS AGO, NO LOSS OF BOWEL OR BLADDER FUNCTION, SHE PRESENTS IN A WHEELCHAIR TODAY, PAIN SCORE 8/10, DEP NO, FALLS YES ED GIVEN, SMOKING NO, ELZA= 68%SOAPP=1 HPI She has had intermittent history of low back pain and occasional radicular symptoms for over 1 year however she has never had radicular symptoms or leg weakness in the left lower extremity like she has had over the past 4 weeks. She has persistent weakness in this left lower extremity. She had a CT scan of her lumbar spine that we reviewed that did not mention any severe areas of central canal stenosis. She is working on obtaining a lumbar MRI. She rates her pain as an 8/10 at its worst in her back and down her leg. She has had intermittent relief with prednisone, minimal relief with tramadol, minimal relief with Tylenol. She would like to know what else can be done about her pain and symptoms as they are persistent and limiting her activities of daily living and functional status. She has diminished capacity to stand and walk secondary to pain levels. Gabapentin she did not tolerate side effects. Review of Systems All other systems reviewed and are negative. Objective Physical Exam Constitutional: No acute distress, well appearing and well nourished. Patient appears stated age. Eyes: Conjunctiva non-icteric and eye lids are without obvious rash or drooping. Pupils are symmetric. Ears, Nose, Mouth, and Throat: External ears and nose appear to be without deformity or rash. No lesions or masses noted. Hearing is grossly intact. Neck: No JVD noted, tracheal position is midline. Head and Face: Examination of the head and face revealed no abnormalities. Respiratory: No gasping or shortness of breath noted, no use of accessory muscles noted. Cardiovascular: Examination for edema is 1-2+ bilateral lower extremities. GI: Abdomen nontender to palpation. Skin: No rashes or open lesions/ulcers identified on examined areas. MSK: No asymmetry or masses noted of the musculature. Examination of the muscles/joints/bones show grossly normal range of motion unless noted below. Neurologic: Motor strength: 5/5 muscle strength of the upper extremities bilateral and equal. 5/5 muscle strength of the right lower extremity, 3-4/5 left lower extremity strength diffusely. Sensation: Sensation intact to light touch in the bilateral upper and lower extremities. Provocative tests: Negative reza's sign bilaterally, positive SLR on the left only. Positive Psychiatric: Mood and affect are normal. Assessment/Plan Diagnoses and all orders for this visit: Lumbar radiculopathy Lumbar spondylosis Myofascial pain Other orders - Referral to Pain Medicine The patient s history, physical exam and personal review of imaging indicate diagnoses of the above items. Plan description: - Will schedule for a caudal epidural steroid injection under fluoroscopic guidance and follow-up 1 month postinjection - Start duloxetine 30 mg once daily, risk-benefit side effects discussed, discussed cessation of this medication if any side effects develop. Discussed not taking this medication combination with tramadol -Fall prevention reviewed, moving rugs, using walker Counseling: The patient was counseled regarding diagnostic results, instructions for management, risk factor reductions, prognosis, patient and family education, impressions, risk and benefits of treatment options, as well as adherence to current treatment regimen. The importance of physical therapy/core strengthening was discussed in regard to an appropriate level for the patient to participate in currently, as well as progress as able. Nicotine and alcohol use were reviewed and discussed as appropriate in relation to cessation and abstinence as indiciated, time spent for smoking cessation counseling when appropriate is 3-10 minutes for F17.200 nicotine dependence. Appropriate use of opioid medications if prescribed as well as adherance and compliance to routine screening and avoidance of any medication that causes side effects in combination such as benzodiazepines. OARRS reviewed when indicated and naloxone offered if opioid medication prescribed. All questions and concerns were addressed during clinical visit. Patient verbalized understanding and agreement with the current plan and counselling. The patient was invited to contact us back anytime with any questions or concerns and follow-up with us in the future. Xiomy Carias CMA 10/02/24 2:35 PM [facility] Work Phone: 10-15-2024 History and physical note H&P reviewed. The patient was examined and there are no changes to the H&P. Source Note - Tarik Horn, - 10/02/2024 2:45 PM EDT Subjective Patient ID: Uzma Duran is a 78 y.o. female who presents for Back Pain (NEW PATIENT, LEFT LOWER BACK AND BILATERAL LEG SCIATIC PAIN AND WEAKNESS FOR THE PAST 4 WEEKS,NUMBNESS TO RIGHT LEG, SHE HAS FALLEN THREE TIMES TRYING TO STEP UP AND HER LEFT LEG GAVE OUT SHE BRACED HERSELF WITH HER RIGHT HAND AND HAS TINGLING WAITING ON EMG, SHE HAS WEAKNESS IN THE LEFT LEG CANNOT EVEN LIFT HER LEFT LEG, VERY PAINFUL, SHE WAS GIVEN PREDNISONE AND DID GET RELIEF WITH THE TAPER PACK, SHE TAKES TRAMADOL AND TYLENOL,). SHE HAS ANOTHER PENDING SCRIPT FOR PREDNISONE TO START IF DR. HORN RECOMMENDS, SHE HAD NAUSEA ON GABAPENTIN, METHOCARBAMOL DID NOT HELP, SHE HAD AN EVALUATION FOR PHYSICAL THERAPY AND IS SCHEDULED FOR VISITS , MRI ORDERED WAITING ON INSURANCE, SHE SLEEPS IN THE RECLINER, BOTH FEET STARTED SWELLING 2 DAYS AGO, NO LOSS OF BOWEL OR BLADDER FUNCTION, SHE PRESENTS IN A WHEELCHAIR TODAY, PAIN SCORE 8/10, DEP NO, FALLS YES ED GIVEN, SMOKING NO, ELZA= 68%SOAPP=1 HPI She has had intermittent history of low back pain and occasional radicular symptoms for over 1 year however she has never had radicular symptoms or leg weakness in the left lower extremity like she has had over the past 4 weeks. She has persistent weakness in this left lower extremity. She had a CT scan of her lumbar spine that we reviewed that did not mention any severe areas of central canal stenosis. She is working on obtaining a lumbar MRI. She rates her pain as an 8/10 at its worst in her back and down her leg. She has had intermittent relief with prednisone, minimal relief with tramadol, minimal relief with Tylenol. She would like to know what else can be done about her pain and symptoms as they are persistent and limiting her activities of daily living and functional status. She has diminished capacity to stand and walk secondary to pain levels. Gabapentin she did not tolerate side effects. Review of Systems All other systems reviewed and are negative. Objective Physical Exam Constitutional: No acute distress, well appearing and well nourished. Patient appears stated age. Eyes: Conjunctiva non-icteric and eye lids are without obvious rash or drooping. Pupils are symmetric. Ears, Nose, Mouth, and Throat: External ears and nose appear to be without deformity or rash. No lesions or masses noted. Hearing is grossly intact. Neck: No JVD noted, tracheal position is midline. Head and Face: Examination of the head and face revealed no abnormalities. Respiratory: No gasping or shortness of breath noted, no use of accessory muscles noted. Cardiovascular: Examination for edema is 1-2+ bilateral lower extremities. GI: Abdomen nontender to palpation. Skin: No rashes or open lesions/ulcers identified on examined areas. MSK: No asymmetry or masses noted of the musculature. Examination of the muscles/joints/bones show grossly normal range of motion unless noted below. Neurologic: Motor strength: 5/5 muscle strength of the upper extremities bilateral and equal. 5/5 muscle strength of the right lower extremity, 3-4/5 left lower extremity strength diffusely. Sensation: Sensation intact to light touch in the bilateral upper and lower extremities. Provocative tests: Negative reza's sign bilaterally, positive SLR on the left only. Positive Psychiatric: Mood and affect are normal. Assessment/Plan Diagnoses and all orders for this visit: Lumbar radiculopathy Lumbar spondylosis Myofascial pain Other orders - Referral to Pain Medicine The patient s history, physical exam and personal review of imaging indicate diagnoses of the above items. Plan description: - Will schedule for a caudal epidural steroid injection under fluoroscopic guidance and follow-up 1 month postinjection - Start duloxetine 30 mg once daily, risk-benefit side effects discussed, discussed cessation of this medication if any side effects develop. Discussed not taking this medication combination with tramadol -Fall prevention reviewed, moving rugs, using walker Counseling: The patient was counseled regarding diagnostic results, instructions for management, risk factor reductions, prognosis, patient and family education, impressions, risk and benefits of treatment options, as well as adherence to current treatment regimen. The importance of physical therapy/core strengthening was discussed in regard to an appropriate level for the patient to participate in currently, as well as progress as able. Nicotine and alcohol use were reviewed and discussed as appropriate in relation to cessation and abstinence as indiciated, time spent for smoking cessation counseling when appropriate is 3-10 minutes for F17.200 nicotine dependence. Appropriate use of opioid medications if prescribed as well as adherance and compliance to routine screening and avoidance of any medication that causes side effects in combination such as benzodiazepines. OARRS reviewed when indicated and naloxone offered if opioid medication prescribed. All questions and concerns were addressed during clinical visit. Patient verbalized understanding and agreement with the current plan and counselling. The patient was invited to contact us back anytime with any questions or concerns and follow-up with us in the future. Xiomy Carias CMA 10/02/24 2:35 PM documented in this encounter [facility] Work Phone: 10-15-2024 History and physical note H&P reviewed. The patient was examined and there are no changes to the H&P. Source Note - Tarik Horn DO - 10/02/2024 2:45 PM EDT Subjective Patient ID: Uzma Duran is a 78 y.o. female who presents for Back Pain (NEW PATIENT, LEFT LOWER BACK AND BILATERAL LEG SCIATIC PAIN AND WEAKNESS FOR THE PAST 4 WEEKS,NUMBNESS TO RIGHT LEG, SHE HAS FALLEN THREE TIMES TRYING TO STEP UP AND HER LEFT LEG GAVE OUT SHE BRACED HERSELF WITH HER RIGHT HAND AND HAS TINGLING WAITING ON EMG, SHE HAS WEAKNESS IN THE LEFT LEG CANNOT EVEN LIFT HER LEFT LEG, VERY PAINFUL, SHE WAS GIVEN PREDNISONE AND DID GET RELIEF WITH THE TAPER PACK, SHE TAKES TRAMADOL AND TYLENOL,). SHE HAS ANOTHER PENDING SCRIPT FOR PREDNISONE TO START IF DR. HORN RECOMMENDS, SHE HAD NAUSEA ON GABAPENTIN, METHOCARBAMOL DID NOT HELP, SHE HAD AN EVALUATION FOR PHYSICAL THERAPY AND IS SCHEDULED FOR VISITS , MRI ORDERED WAITING ON INSURANCE, SHE SLEEPS IN THE RECLINER, BOTH FEET STARTED SWELLING 2 DAYS AGO, NO LOSS OF BOWEL OR BLADDER FUNCTION, SHE PRESENTS IN A WHEELCHAIR TODAY, PAIN SCORE 8/10, DEP NO, FALLS YES ED GIVEN, SMOKING NO, ELZA= 68%SOAPP=1 HPI She has had intermittent history of low back pain and occasional radicular symptoms for over 1 year however she has never had radicular symptoms or leg weakness in the left lower extremity like she has had over the past 4 weeks. She has persistent weakness in this left lower extremity. She had a CT scan of her lumbar spine that we reviewed that did not mention any severe areas of central canal stenosis. She is working on obtaining a lumbar MRI. She rates her pain as an 8/10 at its worst in her back and down her leg. She has had intermittent relief with prednisone, minimal relief with tramadol, minimal relief with Tylenol. She would like to know what else can be done about her pain and symptoms as they are persistent and limiting her activities of daily living and functional status. She has diminished capacity to stand and walk secondary to pain levels. Gabapentin she did not tolerate side effects. Review of Systems All other systems reviewed and are negative. Objective Physical Exam Constitutional: No acute distress, well appearing and well nourished. Patient appears stated age. Eyes: Conjunctiva non-icteric and eye lids are without obvious rash or drooping. Pupils are symmetric. Ears, Nose, Mouth, and Throat: External ears and nose appear to be without deformity or rash. No lesions or masses noted. Hearing is grossly intact. Neck: No JVD noted, tracheal position is midline. Head and Face: Examination of the head and face revealed no abnormalities. Respiratory: No gasping or shortness of breath noted, no use of accessory muscles noted. Cardiovascular: Examination for edema is 1-2+ bilateral lower extremities. GI: Abdomen nontender to palpation. Skin: No rashes or open lesions/ulcers identified on examined areas. MSK: No asymmetry or masses noted of the musculature. Examination of the muscles/joints/bones show grossly normal range of motion unless noted below. Neurologic: Motor strength: 5/5 muscle strength of the upper extremities bilateral and equal. 5/5 muscle strength of the right lower extremity, 3-4/5 left lower extremity strength diffusely. Sensation: Sensation intact to light touch in the bilateral upper and lower extremities. Provocative tests: Negative reza's sign bilaterally, positive SLR on the left only. Positive Psychiatric: Mood and affect are normal. Assessment/Plan Diagnoses and all orders for this visit: Lumbar radiculopathy Lumbar spondylosis Myofascial pain Other orders - Referral to Pain Medicine The patient s history, physical exam and personal review of imaging indicate diagnoses of the above items. Plan description: - Will schedule for a caudal epidural steroid injection under fluoroscopic guidance and follow-up 1 month postinjection - Start duloxetine 30 mg once daily, risk-benefit side effects discussed, discussed cessation of this medication if any side effects develop. Discussed not taking this medication combination with tramadol -Fall prevention reviewed, moving rugs, using walker Counseling: The patient was counseled regarding diagnostic results, instructions for management, risk factor reductions, prognosis, patient and family education, impressions, risk and benefits of treatment options, as well as adherence to current treatment regimen. The importance of physical therapy/core strengthening was discussed in regard to an appropriate level for the patient to participate in currently, as well as progress as able. Nicotine and alcohol use were reviewed and discussed as appropriate in relation to cessation and abstinence as indiciated, time spent for smoking cessation counseling when appropriate is 3-10 minutes for F17.200 nicotine dependence. Appropriate use of opioid medications if prescribed as well as adherance and compliance to routine screening and avoidance of any medication that causes side effects in combination such as benzodiazepines. OARRS reviewed when indicated and naloxone offered if opioid medication prescribed. All questions and concerns were addressed during clinical visit. Patient verbalized understanding and agreement with the current plan and counselling. The patient was invited to contact us back anytime with any questions or concerns and follow-up with us in the future. Xiomy Carias CMA 10/02/24 2:35 PM documented in this encounter [facility] Work Phone: 10-15-2024 Miscellaneous Notes Wheeled to lobby via w/c; Driven home by Sebastian. documented in this encounter [facility] Work Phone: 10-15-2024 Miscellaneous Notes Wheeled to lobby via w/c; Driven home by Sebastian. documented in this encounter [facility] Work Phone: 10-15-2024 Nurse Surgical operation note Wheeled to lobby via w/c; Driven home by Sebastian. [facility] 10-15-2024 Note Table formatting fro m the original result was not included. Procedure Epidural Steroid Injection Indication Lumbar radiculopathy Medications lidocaine PF (Xylocaine) 20 mg/mL (2 %) injection 120 mg 3 mL iohexol (OMNIPaque) 300 mg iodine/mL solution 3 mL 2 mL sodium chloride (PF) 0.9% solution 9 mL methylPREDNISolone acetate (DEPO-Medrol) injection 40 mg (Totals for administrations occurring from 1406 to 1416 on 10/15/24) Preprocedure A history and physical has been performed, and patient medication allergies have been reviewed. The patient's tolerance of previous anesthesia has been reviewed. The risks and benefits of the procedure and the sedation options and risks were discussed with the patient. All questions were answered and informed consent obtained. Details of the Procedure Diagnosis: m54.16 lumbar radiculopathy Procedure: Caudal epidural steroid injection under fluoroscopic guidance Anesthesia: Local Complications: None After informed consent was obtained, the patient was brought to the procedure suite and placed in the prone position. Pulse oximetry and blood pressure were monitored throughout. The low back area was prepped and draped in the usual sterile fashion. Using fluoroscopic guidance, the skin and subcutaneous tissue overlying the needle trajectory were anesthetized with 2.0% lidocaine. A spinal needle was inserted and directed by fluoroscopy into the sacral hiatus. Injection of contrast revealed appropriate spread without vascular uptake. Needle tip position confirmed in at least two views. 9 mL of normal saline plus 40 mg of Methylprednisone was then injected. The needle was removed and the patient was then transferred to the recovery room in stable condition. The patient tolerated the procedure well. There were no apparent complications. FOLLOW UP: The patient will update us on their response to this procedure, and agrees to continue currently prescribed/recommended therapies Procedure Provider Tarik Horn DO Procedure Location [facility] [place] [address] [place] [address] [place] [id number] Referring Provider Tarik Horn DO [address] [place] [address] IMAGING 10-03-2024 History of Present illness Narrative Subjective She is trying to limit her fluid intake Has had some swelling Has not missed any meds. Patient ID: Uzma Duran is a 78 y.o. female who presents for Follow-up (Hospital). HPI She is here for follow-up secondary to a recent hospitalization in which she was diagnosed with SIADH She was discharged on salt tabs and Lasix. She did call and states that she was having some trouble with her medications and with her stomach Her sodium was rechecked on September 30 is up to 130. It is about the same as when she was discharged at 129 Blood pressure here in the office today is 126/80 Review of Systems Constitutional: Negative. HENT: Negative. Eyes: Negative. Respiratory: Negative. Cardiovascular: Positive for leg swelling. Gastrointestinal: Negative. Endocrine: Negative. Genitourinary: Negative. Musculoskeletal: Positive for back pain and myalgias. Skin: Negative. Allergic/Immunologic: Negative. Neurological: Negative. Hematological: Negative. Psychiatric/Behavioral: Negative. Objective Physical Exam Constitutional: Appearance: Normal appearance. HENT: Head: Normocephalic and atraumatic. Right Ear: External ear normal. Left Ear: External ear normal. Nose: Nose normal. Mouth/Throat: Mouth: Mucous membranes are moist. Pharynx: Oropharynx is clear. Eyes: Extraocular Movements: Extraocular movements intact. Conjunctiva/sclera: Conjunctivae normal. Pupils: Pupils are equal, round, and reactive to light. Cardiovascular: Rate and Rhythm: Normal rate and regular rhythm. Pulmonary: Effort: Pulmonary effort is normal. Breath sounds: Normal breath sounds. Abdominal: General: Abdomen is flat. Palpations: Abdomen is soft. Musculoskeletal: General: Swelling present. Comments: In wheelchair Skin: General: Skin is warm and dry. Neurological: General: No focal deficit present. Mental Status: She is alert and oriented to person, place, and time. Psychiatric: Mood and Affect: Mood normal. Behavior: Behavior normal. Assessment/Plan Problem List Items Addressed This Visit ICD-10-CM Hyponatremia - Primary E87.1 Relevant Medications furosemide (Lasix) 20 mg tablet Other Relevant Orders Basic metabolic panel Follow Up In Nephrology Plan: Increase lasix to 40 mg 2x/day with the salt tabs. Recheck labs in 2 weeks. 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 female who presents for Back Pain (NEW PATIENT, LEFT LOWER BACK AND BILATERAL LEG SCIATIC PAIN AND WEAKNESS FOR THE PAST 4 WEEKS,NUMBNESS TO RIGHT LEG, SHE HAS FALLEN THREE TIMES TRYING TO STEP UP AND HER LEFT LEG GAVE OUT SHE BRACED HERSELF WITH HER RIGHT HAND AND HAS TINGLING WAITING ON EMG, SHE HAS WEAKNESS IN THE LEFT LEG CANNOT EVEN LIFT HER LEFT LEG, VERY PAINFUL, SHE WAS GIVEN PREDNISONE AND DID GET RELIEF WITH THE TAPER PACK, SHE TAKES TRAMADOL AND TYLENOL,). SHE HAS ANOTHER PENDING SCRIPT FOR PREDNISONE TO START IF DR. HORN RECOMMENDS, SHE HAD NAUSEA ON GABAPENTIN, METHOCARBAMOL DID NOT HELP, SHE HAD AN EVALUATION FOR PHYSICAL THERAPY AND IS SCHEDULED FOR VISITS , MRI ORDERED WAITING ON INSURANCE, SHE SLEEPS IN THE RECLINER, BOTH FEET STARTED SWELLING 2 DAYS AGO, NO LOSS OF BOWEL OR BLADDER FUNCTION, SHE PRESENTS IN A WHEELCHAIR TODAY, PAIN SCORE 8/10, DEP NO, FALLS YES ED GIVEN, SMOKING NO, ELZA= SOAPP= HPI She has had intermittent history of low back pain and occasional radicular symptoms for over 1 year however she has never had radicular symptoms or leg weakness in the left lower extremity like she has had over the past 4 weeks. She has persistent weakness in this left lower extremity. She had a CT scan of her lumbar spine that we reviewed that did not mention any severe areas of central canal stenosis. She is working on obtaining a lumbar MRI. She rates her pain as an 8/10 at its worst in her back and down her leg. She has had intermittent relief with prednisone, minimal relief with tramadol, minimal relief with Tylenol. She would like to know what else can be done about her pain and symptoms as they are persistent and limiting her activities of daily living and functional status. She has diminished capacity to stand and walk secondary to pain levels. Gabapentin she did not tolerate side effects. Review of Systems All other systems reviewed and are negative. Objective Physical Exam Constitutional: No acute distress, well appearing and well nourished. Patient appears stated age. Eyes: Conjunctiva non-icteric and eye lids are without obvious rash or drooping. Pupils are symmetric. Ears, Nose, Mouth, and Throat: External ears and nose appear to be without deformity or rash. No lesions or masses noted. Hearing is grossly intact. Neck: No JVD noted, tracheal position is midline. Head and Face: Examination of the head and face revealed no abnormalities. Respiratory: No gasping or shortness of breath noted, no use of accessory muscles noted. Cardiovascular: Examination for edema is normal. GI: Abdomen nontender to palpation. Skin: No rashes or open lesions/ulcers identified on examined areas. MSK: No asymmetry or masses noted of the musculature. Examination of the muscles/joints/bones show grossly normal range of motion unless noted below. Neurologic: Motor strength: 5/5 muscle strength of the upper extremities bilateral and equal. 5/5 muscle strength of the right lower extremity, 3-4/5 left lower extremity strength diffusely. Sensation: Sensation intact to light touch in the bilateral upper and lower extremities. Provocative tests: Negative reza's sign bilaterally, positive SLR on the left only. Positive Psychiatric: Mood and affect are normal. Assessment/Plan Diagnoses and all orders for this visit: Lumbar radiculopathy Lumbar spondylosis Myofascial pain Other orders - Referral to Pain Medicine The patient s history, physical exam and personal review of imaging indicate diagnoses of the above items. Plan description: - Will schedule for a caudal epidural steroid injection under fluoroscopic guidance and follow-up 1 month postinjection - Start duloxetine 30 mg once daily, risk-benefit side effects discussed, discussed cessation of this medication if any side effects develop. Discussed not taking this medication combination with tramadol -Fall prevention reviewed, moving rugs, using walker Counseling: The patient was counseled regarding diagnostic results, instructions for management, risk factor reductions, prognosis, patient and family education, impressions, risk and benefits of treatment options, as well as adherence to current treatment regimen. The importance of physical therapy/core strengthening was discussed in regard to an appropriate level for the patient to participate in currently, as well as progress as able. Nicotine and alcohol use were reviewed and discussed as appropriate in relation to cessation and abstinence as indiciated, time spent for smoking cessation counseling when appropriate is 3-10 minutes for F17.200 nicotine dependence. Appropriate use of opioid medications if prescribed as well as adherance and compliance to routine screening and avoidance of any medication that causes side effects in combination such as benzodiazepines. OARRS reviewed when indicated and naloxone offered if opioid medication prescribed. All questions and concerns were addressed during clinical visit. Patient verbalized understanding and agreement with the current plan and counselling. The patient was invited to contact us back anytime with any questions or concerns and follow-up with us in the future. Xiomy Carias CMA 10/02/24 2:35 PM documented in this encounter [facility] Work Phone: 10-02-2024 Instructions Asya Avila RN - 10/02/2024 2:45 PM EDT Hold all nsaid's for 1 week, hold all vitamins/supplements for 1 week Injection education completed written and verbally. documented in this encounter [facility] Work Phone: 10-01-2024 History of Present illness Narrative Hospital follow up; here with ; having trouble sleeping. Taking melatonin 3mg. C/O left leg weakness; hard to get in and out of wheelchair and car. Patient presents for periodic surveillance of chronic medical problems. Subjective Uzma Duran is a 78 y.o. female who presents for Follow-up. HPI Right hand n/t- had neck imaging, right hand dominant, will get nerve conduction study Lef tleg weakness, no red flags, PT once, off meloxicam, tylenol doesn't help, on tramadol, prednisone helped, doesn't want to make insmonia worse, had ct during admission, mentions MRI, advised medicare advantage often require PT first but we can order and see Htn off cozaar for now Ankles puffy, advised think its due to decreased activity and water/salt balances, will monitor Hyponatremia- Recently admitted with profound incidentally discovered hyponatremia, with sodium of 118. Insomnia, recommend benadryl or melatonin From the discharge summary- Hospital Course 78 y.o. female presenting with generalized weakness and also left low back pain radiating to her left lower extremity. She states that her left lower extremity has given out multiple times in the past 3 weeks. 4 out of 5 strength to the left lower extremity noted. She denies any signs of cauda equina. CT scan of the lumbar spine shows degenerative changes especially at L4-L5 and grade 1 degenerative anterolisthesis. Her sodium was noted to be 118. No history of hyponatremia. During hospital stay, patient would be seen by nephrology. She would be placed on fluid restrictions and have improved to 129 at discharge. Symptoms would improve with improvement of sodium. She would be placed on salt tabs and lasix at discharge as well as continue fluid restrictions with close follow up with nephrology outpatient in a week with repeat BMP. Patient would also have her gabapentin discontinued and have her meloxicam ordered scheduled as well as prescribed tramadol for her left back/hip pain. She will need to continue outpatient follow up for her sciatica. Follow up with PCP in one week. Vital signs were stable at discharge. Patient agreed to discharge plan. Sodium up to 130, has apt with Dr Ram , thank you Dr Ram. Admitted 09/21, discharged 09/24. For unclear reasons maru honorio the labs I had ordered/dated for her routine check up in , but fortunately it did include the electrolyte imformation we needed. Review of Systems All other systems reviewed and are negative. . Allergies[1] Medications Ordered Prior to Encounter[2] Problem List[3] Objective Visit Vitals BP 120/74 (BP Location: Left arm, Patient Position: Sitting) Pulse 76 Physical Exam Vitals and nursing note reviewed. Constitutional: General: She is not in acute distress. Appearance: Normal appearance. She is not toxic-appearing. Comments: wheelchair HENT: Head: Normocephalic and atraumatic. Cardiovascular: Rate and Rhythm: Normal rate and regular rhythm. Heart sounds: No murmur heard. Pulmonary: Effort: Pulmonary effort is normal. Breath sounds: Normal breath sounds. Musculoskeletal: Cervical back: Neck supple. No rigidity. Comments: Skin: General: Skin is warm and dry. Neurological: General: No focal deficit present. Mental Status: She is alert and oriented to person, place, and time. Psychiatric: Mood and Affect: Mood normal. Behavior: Behavior normal. Lab Requisition on 09/30/2024 Component Date Value Ref Range Status WBC 09/30/2024 11.4 (H) 4.4 - 11.3 x10*3/uL Final nRBC 09/30/2024 0.0 0.0 - 0.0 /100 WBCs Final RBC 09/30/2024 3.97 (L) 4.00 - 5.20 x10*6/uL Final Hemoglobin 09/30/2024 12.8 12.0 - 16.0 g/dL Final Hematocrit 09/30/2024 38.0 36.0 - 46.0 % Final MCV 09/30/2024 96 80 - 100 fL Final MCH 09/30/2024 32.2 26.0 - 34.0 pg Final MCHC 09/30/2024 33.7 32.0 - 36.0 g/dL Final RDW 09/30/2024 13.6 11.5 - 14.5 % Final Platelets 09/30/2024 323 150 - 450 x10*3/uL Final Neutrophils % 09/30/2024 80.0 40.0 - 80.0 % Final Immature Granulocytes %, Automated 09/30/2024 0.6 0.0 - 0.9 % Final Immature Granulocyte Count (IG) includes promyelocytes, myelocytes and metamyelocytes but does not include bands. Percent differential counts (%) should be interpreted in the context of the absolute cell counts (cells/UL). Lymphocytes % 09/30/2024 12.1 13.0 - 44.0 % Final Monocytes % 09/30/2024 6.3 2.0 - 10.0 % Final Eosinophils % 09/30/2024 0.6 0.0 - 6.0 % Final Basophils % 09/30/2024 0.4 0.0 - 2.0 % Final Neutrophils Absolute 09/30/2024 9.12 (H) 1.60 - 5.50 x10*3/uL Final Percent differential counts (%) should be interpreted in the context of the absolute cell counts (cells/uL). Immature Granulocytes Absolute, Au* 09/30/2024 0.07 0.00 - 0.50 x10*3/uL Final Lymphocytes Absolute 09/30/2024 1.38 0.80 - 3.00 x10*3/uL Final Monocytes Absolute 09/30/2024 0.72 0.05 - 0.80 x10*3/uL Final Eosinophils Absolute 09/30/2024 0.07 0.00 - 0.40 x10*3/uL Final Basophils Absolute 09/30/2024 0.05 0.00 - 0.10 x10*3/uL Final Glucose 09/30/2024 110 (H) 74 - 99 mg/dL Final Sodium 09/30/2024 130 (L) 136 - 145 mmol/L Final Potassium 09/30/2024 3.5 3.5 - 5.3 mmol/L Final Chloride 09/30/2024 94 (L) 98 - 107 mmol/L Final Bicarbonate 09/30/2024 27 21 - 32 mmol/L Final Anion Gap 09/30/2024 13 10 - 20 mmol/L Final Urea Nitrogen 09/30/2024 31 (H) 6 - 23 mg/dL Final Creatinine 09/30/2024 0.80 0.50 - 1.05 mg/dL Final eGFR 09/30/2024 76 >60 mL/min/1.73m*2 Final Calculations of estimated GFR are performed using the 2020 CKD-EPI Study Refit equation without the race variable for the IDMS-Traceable creatinine methods. https://jasn.asnjournals.org/conten t/early//ASN.5754881136 Calcium 09/30/2024 9.1 8.6 - 10.3 mg/dL Final Albumin 09/30/2024 3.7 3.4 - 5.0 g/dL Final Alkaline Phosphatase 09/30/2024 74 33 - 136 U/L Final Total Protein 09/30/2024 6.2 (L) 6.4 - 8.2 g/dL Final AST 09/30/2024 17 9 - 39 U/L Final Bilirubin, Total 09/30/2024 0.8 0.0 - 1.2 mg/dL Final ALT 09/30/2024 20 7 - 45 U/L Final Patients treated with Sulfasalazine may generate falsely decreased results for ALT. Cholesterol 09/30/2024 169 0 - 199 mg/dL Final Age Desirable Borderline High High 0-19 Y 0 - 169 170 - 199 >/= 200 20-24 Y 0 - 189 190 - 224 >/= 225 >24 Y 0 - 199 200 - 239 >/= 240 All ranges are based on fasting samples. Specific therapeutic targets will vary based on patient-specific cardiac risk. Pediatric guidelines reference:Pediatrics 2011, 128(S5).Adult guidelines reference: NCEP ATPIII Guidelines,DYLAN 2001, 258:2486-97 Venipuncture immediately after or during the administration of Metamizole may lead to falsely low results. Testing should be performed immediately prior to Metamizole dosing. HDL-Cholesterol 09/30/2024 66.0 mg/dL Final Age Very Low Low Normal High 0-19 Y < 35 < 40 40-45 ---- 20-24 Y ---- < 40 >45 ---- >24 Y ---- < 40 40-60 >60 Cholesterol/HDL Ratio 09/30/2024 2.6 Final Ref Values Desirable < 3.4 High Risk > 5.0 LDL Calculated 09/30/2024 85 <=99 mg/dL Final Near Borderline AGE Desirable Optimal High High Very High 0-19 Y 0 - 109 --- 110-129 >/= 130 ---- 20-24 Y 0 - 119 --- 120-159 >/= 160 ---- >24 Y 0 - 99 100-129 130-159 160-189 >/=190 LDL Cholesterol is calculated using the Friedewald equation. VLDL 09/30/2024 18 0 - 40 mg/dL Final Triglycerides 09/30/2024 92 0 - 149 mg/dL Final Age Desirable Borderline High Very High SEX:B mg/dL mg/dL mg/dL mg/dL <=14D 86-277 ---- ---- ---- 15D-365D 55-277 ---- ---- ---- 1Y-9Y 0-74 75-99 >=100 ---- 10Y-19Y 0-89 90-129 >=130 ---- 20Y-24Y 0-114 115-149 >=150 ---- >= 25Y 0-149 150-199 200-499 >=500 Venipuncture immediately after or during the administration of Metamizole may lead to falsely low results. Testing should be performed immediately prior to Metamizole dosing. Non HDL Cholesterol 09/30/2024 103 0 - 149 mg/dL Final Age Desirable Borderline High High Very High 0-19 Y 0 - 119 120 - 144 >/= 145 >/= 160 20-24 Y 0 - 149 150 - 189 >/= 190 ---- >24 Y 30 mg/dL above LDL Cholesterol goal Thyroid Stimulating Hormone 09/30/2024 1.01 0.44 - 3.98 mIU/L Final Vitamin B12 09/30/2024 682 211 - 911 pg/mL Final Hemoglobin A1C 09/30/2024 5.3 See comment % Final Estimated Average Glucose 09/30/2024 105 Not Established mg/dL Final Vitamin D, 25-Hydroxy, Total 09/30/2024 67 30 - 100 ng/mL Final Admission on 09/21/2024, Discharged on 09/24/2024 Component Date Value Ref Range Status WBC 09/21/2024 12.0 (H) 4.4 - 11.3 x10*3/uL Final nRBC 09/21/2024 0.0 0.0 - 0.0 /100 WBCs Final RBC 09/21/2024 4.06 4.00 - 5.20 x10*6/uL Final Hemoglobin 09/21/2024 13.0 12.0 - 16.0 g/dL Final Hematocrit 09/21/2024 36.6 36.0 - 46.0 % Final MCV 09/21/2024 90 80 - 100 fL Final MCH 09/21/2024 32.0 26.0 - 34.0 pg Final MCHC 09/21/2024 35.5 32.0 - 36.0 g/dL Final RDW 09/21/2024 12.5 11.5 - 14.5 % Final Platelets 09/21/2024 264 150 - 450 x10*3/uL Final Neutrophils % 09/21/2024 82.3 40.0 - 80.0 % Final Immature Granulocytes %, Automated 09/21/2024 0.9 0.0 - 0.9 % Final Immature Granulocyte Count (IG) includes promyelocytes, myelocytes and metamyelocytes but does not include bands. Percent differential counts (%) should be interpreted in the context of the absolute cell counts (cells/UL). Lymphocytes % 09/21/2024 9.2 13.0 - 44.0 % Final Monocytes % 09/21/2024 7.2 2.0 - 10.0 % Final Eosinophils % 09/21/2024 0.2 0.0 - 6.0 % Final Basophils % 09/21/2024 0.2 0.0 - 2.0 % Final Neutrophils Absolute 09/21/2024 9.89 (H) 1.60 - 5.50 x10*3/uL Final Percent differential counts (%) should be interpreted in the context of the absolute cell counts (cells/uL). Immature Granulocytes Absolute, Au* 09/21/2024 0.11 0.00 - 0.50 x10*3/uL Final Lymphocytes Absolute 09/21/2024 1.11 0.80 - 3.00 x10*3/uL Final Monocytes Absolute 09/21/2024 0.86 (H) 0.05 - 0.80 x10*3/uL Final Eosinophils Absolute 09/21/2024 0.03 0.00 - 0.40 x10*3/uL Final Basophils Absolute 09/21/2024 0.02 0.00 - 0.10 x10*3/uL Final Glucose 09/21/2024 109 (H) 74 - 99 mg/dL Final Sodium 09/21/2024 118 (LL) 136 - 145 mmol/L Final Confirmed by repeat analysis Potassium 09/21/2024 3.3 (L) 3.5 - 5.3 mmol/L Final Chloride 09/21/2024 86 (L) 98 - 107 mmol/L Final Bicarbonate 09/21/2024 25 21 - 32 mmol/L Final Anion Gap 09/21/2024 10 10 - 20 mmol/L Final Urea Nitrogen 09/21/2024 16 6 - 23 mg/dL Final Creatinine 09/21/2024 0.80 0.50 - 1.05 mg/dL Final eGFR 09/21/2024 76 >60 mL/min/1.73m*2 Final Calculations of estimated GFR are performed using the 2020 CKD-EPI Study Refit equation without the race variable for the IDMS-Traceable creatinine methods. https://jasn.asnjournals.org/conten t/early//ASN.3924972781 Calcium 09/21/2024 8.7 8.6 - 10.3 mg/dL Final Albumin 09/21/2024 3.7 3.4 - 5.0 g/dL Final Alkaline Phosphatase 09/21/2024 61 33 - 136 U/L Final Total Protein 09/21/2024 6.4 6.4 - 8.2 g/dL Final AST 09/21/2024 14 9 - 39 U/L Final Bilirubin, Total 09/21/2024 1.2 0.0 - 1.2 mg/dL Final ALT 09/21/2024 18 7 - 45 U/L Final Patients treated with Sulfasalazine may generate falsely decreased results for ALT. Magnesium 09/21/2024 1.87 1.60 - 2.40 mg/dL Final aPTT 09/21/2024 21 (L) 26 - 36 seconds Final Protime 09/21/2024 10.7 9.8 - 12.4 seconds Final INR 09/21/2024 1.0 0.9 - 1.1 Final Coronavirus 2019, PCR 09/21/2024 Not Detected Not Detected Final Ventricular Rate 09/21/2024 76 BPM Final Atrial Rate 09/21/2024 76 BPM Final MA Interval 09/21/2024 158 ms Final QRS Duration 09/21/2024 76 ms Final QT Interval 09/21/2024 368 ms Final QTC Calculation(Bazett) 09/21/2024 414 ms Final P [place] 09/21/2024 82 degrees Final R [place] 09/21/2024 82 degrees Final T [place] 09/21/2024 88 degrees Final QRS Count 09/21/2024 12 beats Final Q Onset 09/21/2024 230 ms Final P Onset 09/21/2024 151 ms Final P Offset 09/21/2024 227 ms Final T Offset 09/21/2024 414 ms Final QTC Fredericia 09/21/2024 398 ms Final Troponin I, High Sensitivity 09/21/2024 7 0 - 13 ng/L Final Troponin I, High Sensitivity 09/21/2024 7 0 - 13 ng/L Final Extra Tube 09/21/2024 Hold for add-ons. Final Auto resulted. Color, Urine 09/21/2024 Colorless (N) Light-Yellow, Yellow, Dark-Yellow Final Appearance, Urine 09/21/2024 Clear Clear Final Specific [place], Urine 09/21/2024 1.009 1.005 - 1.035 Final pH, Urine 09/21/2024 6.5 5.0, 5.5, 6.0, 6.5, 7.0, 7.5, 8.0 Final Protein, Urine 09/21/2024 NEGATIVE NEGATIVE, 10 (TRACE), 20 (TRACE) mg/dL Final Glucose, Urine 09/21/2024 Normal Normal mg/dL Final Blood, Urine 09/21/2024 NEGATIVE NEGATIVE mg/dL Final Ketones, Urine 09/21/2024 NEGATIVE NEGATIVE mg/dL Final Bilirubin, Urine 09/21/2024 NEGATIVE NEGATIVE mg/dL Final Urobilinogen, Urine 09/21/2024 Normal Normal mg/dL Final Nitrite, Urine 09/21/2024 NEGATIVE NEGATIVE Final Leukocyte Esterase, Urine 09/21/2024 NEGATIVE NEGATIVE Final Osmolality, Urine Random 09/23/2024 607 200 - 1,200 mOsm/kg Final Sodium, Urine Random 09/23/2024 55 mmol/L Final Creatinine, Urine Random 09/23/2024 110.4 20.0 - 320.0 mg/dL Final Sodium/Creatinine Ratio 09/23/2024 50 Not established. mmol/g Creat Final Glucose 09/22/2024 116 (H) 74 - 99 mg/dL Final Sodium 09/22/2024 121 (L) 136 - 145 mmol/L Final Potassium 09/22/2024 4.0 3.5 - 5.3 mmol/L Final Chloride 09/22/2024 94 (L) 98 - 107 mmol/L Final Bicarbonate 09/22/2024 23 21 - 32 mmol/L Final Anion Gap 09/22/2024 8 (L) 10 - 20 mmol/L Final Urea Nitrogen 09/22/2024 12 6 - 23 mg/dL Final Creatinine 09/22/2024 0.56 0.50 - 1.05 mg/dL Final eGFR 09/22/2024 >90 >60 mL/min/1.73m*2 Final Calculations of estimated GFR are performed using the 2020 CKD-EPI Study Refit equation without the race variable for the IDMS-Traceable creatinine methods. https://jasn.asnjournals.org/conten t/early//ASN.3046467411 Calcium 09/22/2024 7.8 (L) 8.6 - 10.3 mg/dL Final Albumin 09/22/2024 3.2 (L) 3.4 - 5.0 g/dL Final Alkaline Phosphatase 09/22/2024 55 33 - 136 U/L Final Total Protein 09/22/2024 5.6 (L) 6.4 - 8.2 g/dL Final AST 09/22/2024 14 9 - 39 U/L Final Bilirubin, Total 09/22/2024 0.8 0.0 - 1.2 mg/dL Final ALT 09/22/2024 15 7 - 45 U/L Final Patients treated with Sulfasalazine may generate falsely decreased results for ALT. Magnesium 09/22/2024 1.72 1.60 - 2.40 mg/dL Final WBC 09/22/2024 12.1 (H) 4.4 - 11.3 x10*3/uL Final nRBC 09/22/2024 0.0 0.0 - 0.0 /100 WBCs Final RBC 09/22/2024 3.65 (L) 4.00 - 5.20 x10*6/uL Final Hemoglobin 09/22/2024 11.8 (L) 12.0 - 16.0 g/dL Final Hematocrit 09/22/2024 33.8 (L) 36.0 - 46.0 % Final MCV 09/22/2024 93 80 - 100 fL Final MCH 09/22/2024 32.3 26.0 - 34.0 pg Final MCHC 09/22/2024 34.9 32.0 - 36.0 g/dL Final RDW 09/22/2024 12.7 11.5 - 14.5 % Final Platelets 09/22/2024 240 150 - 450 x10*3/uL Final Thyroid Stimulating Hormone 09/23/2024 1.12 0.44 - 3.98 mIU/L Final Glucose 09/23/2024 115 (H) 74 - 99 mg/dL Final Sodium 09/23/2024 129 (L) 136 - 145 mmol/L Final Reviewed with previous results Potassium 09/23/2024 4.1 3.5 - 5.3 mmol/L Final Chloride 09/23/2024 101 98 - 107 mmol/L Final Bicarbonate 09/23/2024 23 21 - 32 mmol/L Final Anion Gap 09/23/2024 9 (L) 10 - 20 mmol/L Final Urea Nitrogen 09/23/2024 18 6 - 23 mg/dL Final Creatinine 09/23/2024 0.58 0.50 - 1.05 mg/dL Final eGFR 09/23/2024 >90 >60 mL/min/1.73m*2 Final Calculations of estimated GFR are performed using the 2020 CKD-EPI Study Refit equation without the race variable for the IDMS-Traceable creatinine methods. https://jasn.asnjournals.org/conten t/early//ASN.1455645527 Calcium 09/23/2024 8.1 (L) 8.6 - 10.3 mg/dL Final Albumin 09/23/2024 2.9 (L) 3.4 - 5.0 g/dL Final Alkaline Phosphatase 09/23/2024 48 33 - 136 U/L Final Total Protein 09/23/2024 5.3 (L) 6.4 - 8.2 g/dL Final AST 09/23/2024 11 9 - 39 U/L Final Bilirubin, Total 09/23/2024 0.6 0.0 - 1.2 mg/dL Final ALT 09/23/2024 14 7 - 45 U/L Final Patients treated with Sulfasalazine may generate falsely decreased results for ALT. WBC 09/23/2024 11.7 (H) 4.4 - 11.3 x10*3/uL Final nRBC 09/23/2024 0.0 0.0 - 0.0 /100 WBCs Final RBC 09/23/2024 3.68 (L) 4.00 - 5.20 x10*6/uL Final Hemoglobin 09/23/2024 11.6 (L) 12.0 - 16.0 g/dL Final Hematocrit 09/23/2024 35.2 (L) 36.0 - 46.0 % Final MCV 09/23/2024 96 80 - 100 fL Final MCH 09/23/2024 31.5 26.0 - 34.0 pg Final MCHC 09/23/2024 33.0 32.0 - 36.0 g/dL Final RDW 09/23/2024 13.2 11.5 - 14.5 % Final Platelets 09/23/2024 263 150 - 450 x10*3/uL Final Glucose 09/24/2024 169 (H) 74 - 99 mg/dL Final Sodium 09/24/2024 129 (L) 136 - 145 mmol/L Final Reviewed with previous results Potassium 09/24/2024 3.6 3.5 - 5.3 mmol/L Final Chloride 09/24/2024 100 98 - 107 mmol/L Final Bicarbonate 09/24/2024 21 21 - 32 mmol/L Final Anion Gap 09/24/2024 12 10 - 20 mmol/L Final Urea Nitrogen 09/24/2024 20 6 - 23 mg/dL Final Creatinine 09/24/2024 0.72 0.50 - 1.05 mg/dL Final eGFR 09/24/2024 86 >60 mL/min/1.73m*2 Final Calculations of estimated GFR are performed using the 2020 CKD-EPI Study Refit equation without the race variable for the IDMS-Traceable creatinine methods. https://jasn.asnjournals.org/conten t/early//ASN.9755034380 Calcium 09/24/2024 8.0 (L) 8.6 - 10.3 mg/dL Final WBC 09/24/2024 12.2 (H) 4.4 - 11.3 x10*3/uL Final nRBC 09/24/2024 0.0 0.0 - 0.0 /100 WBCs Final RBC 09/24/2024 3.41 (L) 4.00 - 5.20 x10*6/uL Final Hemoglobin 09/24/2024 11.0 (L) 12.0 - 16.0 g/dL Final Hematocrit 09/24/2024 32.9 (L) 36.0 - 46.0 % Final MCV 09/24/2024 97 80 - 100 fL Final MCH 09/24/2024 32.3 26.0 - 34.0 pg Final MCHC 09/24/2024 33.4 32.0 - 36.0 g/dL Final RDW 09/24/2024 13.2 11.5 - 14.5 % Final Platelets 09/24/2024 235 150 - 450 x10*3/uL Final Assessment/Plan Problem List Items Addressed This Visit Hyponatremia Lumbar radiculopathy Relevant Orders MR lumbar spine wo IV contrast Referral to Pain Medicine Other Visit Diagnoses Numbness and tingling in right hand - Primary Relevant Orders EMG & nerve conduction Followup 2-3 weeks, call concerns. Cyndi Horn MD [1] Allergies Allergen Reactions Amlodipine Swelling Ankle swelling Penicillins Rash [2] Current Outpatient Medications on File Prior to Visit Medication Sig Dispense Refill ascorbic acid/collagen hydr (COLLAGEN SKIN RENEWAL ORAL) Take by mouth once daily. atorvastatin (Lipitor) 40 mg tablet Take 0.5 tablets (20 mg) by mouth once daily. cyanocobalamin, vitamin B-12, (VITAMIN B-12 ORAL) Take 1 tablet by mouth early in the morning.. docosahexaenoic acid/epa (FISH OIL ORAL) Take 1 capsule by mouth early in the morning.. furosemide (Lasix) 20 mg tablet Take 1 tablet (20 mg) by mouth 2 times daily (morning and late afternoon). 60 tablet 1 L. acidophilus/Bifid. animalis 32 billion cell capsule Take by mouth. sodium chloride 1,000 mg tablet Take 2 tablets (2 g) by mouth 2 times daily (morning and late afternoon). 120 tablet 1 traMADol (Ultram) 50 mg tablet Take 1 tablet (50 mg) by mouth every 8 hours if needed for severe pain (7 - 10) for up to 21 doses. 21 tablet 0 vvwhkks-wkzh-xvgbx-oreg-capryl 100 mg-150 mg- 50 mg-150 mg capsule Take 1 capsule by mouth early in the morning.. zinc gluconate 50 mg elemental tablet Take 1 tablet by mouth once daily. [DISCONTINUED] meloxicam (Mobic) 15 mg tablet Take 1 tablet (15 mg) by mouth once daily with breakfast. 30 tablet 0 [Paused] losartan (Cozaar) 50 mg tablet Take 1 tablet (50 mg) by mouth once daily. (Patient not taking: Reported on 10/01/2024) 30 tablet 5 methocarbamol (Robaxin) 500 mg tablet Take 1 tablet (500 mg) by mouth as needed at bedtime for muscle spasms for up to 10 days. 10 tablet 0 [DISCONTINUED] gabapentin (Neurontin) 300 mg capsule Take 1 capsule (300 mg) by mouth as needed at bedtime (pain). (Patient not taking: Reported on 10/01/2024) 30 capsule 1 No current facility-administered medications on file prior to visit. [3] Patient Active Problem List Diagnosis Elevated glucose Hyperlipidemia Multiple thyroid nodules Osteoporosis Severe obstructive sleep apnea Tubular adenoma of colon Hypertension Agatston CAC score, >400 Hyponatremia Lumbar radiculopathy Cervical radiculopathy documented in this encounter [facility] Work Phone: 10-01-2024 Instructions Cyndi Horn MD - 10/01/2024 10:20 AM EDT Benadryl 25 mg one at bedtime OR increase melatonin to 5 mg at bedtime for sleep documented in this encounter [facility] Work Phone: 09-24-2024 Nurse Note Discharge Note: 09/24/2024 1528 AVS and pt responsibilities reviewed with pt, pt , and copy given. High protein diet, fluid restriction, education reviewed with pt, pt , and information sheets given. Pt verbalizes understanding of instructions received, verbalizes understanding of when to seek medical attention, denies any home going or personal care needs. Denies further questions or concerns. Reviewed follow up appts with pt and verbalizes understanding. Marquez LAW [facility] 09-24-2024 Nurse Note Discharge Note: 09/24/2024 1532 Discharged via wheelchair to private car accompanied by PCT, personal belongings taken with pt, no distress noted, no complaints voiced. Marquez LAW [facility] Work Phone: 09-24-2024 Nurse Note Discharge Note: 09/24/2024 1528 AVS and pt responsibilities reviewed with pt, pt , and copy given. High protein diet, fluid restriction, education reviewed with pt, pt , and information sheets given. Pt verbalizes understanding of instructions received, verbalizes understanding of when to seek medical attention, denies any home going or personal care needs. Denies further questions or concerns. Reviewed follow up appts with pt and verbalizes understanding. Marquez LAW Discharge Note: 09/24/2024 1532 Discharged via wheelchair to private car accompanied by PCT, personal belongings taken with pt, no distress noted, no complaints voiced. Marquez LAW Pt AMB from the bed to the bathroom and then to the chair for dinner, walker and one staff for stability. Spouse at bedside. Pt up to chair for lunch after AMB to the bathroom. Pt wobbly, but strength is good. Pt denies new or worsening pain while AMB w/ walker and one assist. Pt resting calmly in bed, AAOx4. Pt denies new or worsening pain, but states that her left leg pain is a 7/10 and the left leg has been giving out several times over the past few days. Long discussion and education provided. documented in this encounter [facility] Work Phone: 09-24-2024 History of Present illness Narrative Medication Education Medication education for Uzma Duran was provided to the patient and family for the following medication(s): Furosemide 20 mg BID Sodium chloride 2g BID Tramadol 50 mg Q8H PRN Meloxicam 15 mg daily Medication education provided by a Pharmacist: ADR Counseling Medication interactions Proper dose, indication, possible ADRs How the medication works and benefits of taking it Benefits of taking the medication Importance of compliance Necessary labs and/or other monitoring Any drug interactions (including OTCs and herbvals) and importance of notifying a healthcare provider of any medication changes Potential duration of therapy Identified potential barriers to education: None Method(s) of Education: Verbal Written materials provided and reviewed An opportunity to ask questions and receive answers was provided. Assessment of understanding the patient and family: 2= meets goals/outcomes Additional Notes (if applicable): Patient participated in the Meds to Beds program via the [facility]. The above 4 medications (not meloxicam) were delivered to the patient's bedside by the pharmacist and all question were addressed at that time. Patient asked about continuing her supplements and electrolytes. Patient was advised to continue her supplements and electrolytes as that is her normal and she is about to start on a medication that can cause some electrolyte disturbances (furosemide). The different mechanisms of increasing her serum sodium, including fluid restriction, diuresis, and sodium supplement were discussed Patient requested easy off lids on her prescriptions which were provided Priyanka Laura PharmD Uzma Duran is a 78 y.o. female on day 3 of admission presenting with Hyponatremia. Subjective Patient seen and examined at the bedside She is sitting comfortably in the bedside chair Her is present with her No complaints at this time States she is ready to go home Objective Vitals 24HR Heart Rate: [80-123] Temp: [36 C (96.8 F)-36.2 C (97.2 F)] Resp: [14-33] BP: (85-150)/(63-79) SpO2: [94 %-100 %] Intake/Output last 3 Shifts: Intake/Output Summary (Last 24 hours) at 09/24/2024 1219 Last data filed at 09/24/2024 0738 Gross per 24 hour Intake 720 ml Output -- Net 720 ml Physical Exam Constitutional: Appearance: Normal appearance. HENT: Head: Normocephalic and atraumatic. Right Ear: External ear normal. Left Ear: External ear normal. Nose: Nose normal. Mouth/Throat: Mouth: Mucous membranes are moist. Pharynx: Oropharynx is clear. Eyes: Extraocular Movements: Extraocular movements intact. Conjunctiva/sclera: Conjunctivae normal. Pupils: Pupils are equal, round, and reactive to light. Cardiovascular: Rate and Rhythm: Normal rate and regular rhythm. Pulmonary: Effort: Pulmonary effort is normal. Breath sounds: Normal breath sounds. Abdominal: General: Abdomen is flat. Palpations: Abdomen is soft. Skin: General: Skin is warm and dry. Neurological: General: No focal deficit present. Mental Status: She is alert and oriented to person, place, and time. Psychiatric: Mood and Affect: Mood normal. Behavior: Behavior normal. Relevant Results This patient currently has cardiac telemetry ordered; if you would like to modify or discontinue the telemetry order, click here to go to the orders activity to modify/discontinue the order. Assessment & Plan Hyponatremia : SIADH with urine sodium of 55 and urine osmole 607Hyponatremia: Euvolemic Left-sided leg pain and weakness Hypoalbuminemia with protein calorie malnutrition Normocytic anemia Plan: I had a long detailed discussion with her about her diagnosis and plan She can be discharged from my standpoint with following recommendations: 1. Start salt tablets 2 g twice per day 2. Start Lasix 20 mg twice per day 3. Follow-up in my office next week with labs 4. Limit fluid intake to 40 to 60 ounces per day 5. High-protein diet Gerson Ram DO Physical Therapy Physical Therapy Evaluation Patient Name: Uzma Duran Today's Date: 09/24/2024 Time Calculation Start Time: 1110 Stop Time: 1130 Time Calculation (min): 20 min Assessment/Plan Patient able to transfer and ambulate mod independently using FWW as needed due to L hip/leg pain. Patient already has an outpatient PT appointment scheduled later this week for leg pain and it is recommended patient keep this scheduled appointment. PT provided patient with education on use of FWW and education on treatment intervention strategies that may be used for outpatient PT. Patient and spouse voiced good understanding. No further acute PT needs at this time. PT Assessment Rehab Prognosis: Good Barriers to Discharge Home: No anticipated barriers Evaluation/Treatment Tolerance: Patient tolerated treatment well End of Session Communication: Bedside nurse (informed nurse patient and spouse have questions about patient's fluid restriction) End of Session Patient Position: Up in chair, Alarm off, not on at start of session (patient anticipates DC home today and is dressed and ready to go) IP OR SWING BED PT PLAN Inpatient or Swing Bed: Inpatient PT Plan PT Plan: PT Eval only PT Eval Only Reason: No acute PT needs identified PT Frequency: PT eval only PT Discharge Recommendations: Low intensity level of continued care (community based PT (outpatient level) for her L leg pain) PT Recommended Transfer Status: Independent PT - OK to Discharge: Yes Subjective Current Problem: Problem List[1] General Visit Information: General Reason for Referral: 78 year old female admitted for low back pain, sciatica with newly prescribed gabapentin with recent hx of legs giving out/falls. pt was found to have hyponatremia. Referred By: Bhupinder Family/Caregiver Present: Yes (spouse) Prior to Session Communication: Bedside nurse Patient Position Received: Up in chair, Alarm off, not on at start of session General Comment: patient agreeable to session. states she just took a shower and spouse was present just in case she needed anything but states she was able to shower independently. States she now has her own walker as it was delivered yesterday. Confirms she still has an outpatient PT appointment this Monday09/27/24 for her sciatica/leg pain and anticipates keeping the appointment. Home Living: Home Living Type of Home: House Lives With: Spouse Home Adaptive Equipment: Walker rolling or standard Home Layout: One level Home Access: Stairs to enter without rails Entrance Stairs-Number of Steps: 2 Prior Level of Function: Prior Function Per Pt/Caregiver Report ADL Assistance: Independent Homemaking Assistance: Independent Ambulatory Assistance: Independent (no device) Prior Function Comments: patient reports she is very active at baseline and was recently hiking; denies previous L leg/back pain Precautions: Precautions Medical Precautions: Fall precautions Vital Signs: Vital Signs Vital Signs Comment: no concerns during session Objective Pain: Pain Assessment Pain Assessment: 0-10 0-10 (Numeric) Pain Score: (mild pain in left hip and down leg) Cognition: Cognition Orientation Level: Oriented X4 General Assessments: Activity Tolerance Endurance: Endurance does not limit participation in activity Coordination Movements are Fluid and Coordinated: Yes Static Sitting Balance Static Sitting-Balance Support: Feet supported Static Sitting-Level of Assistance: Independent Dynamic Sitting Balance Dynamic Sitting-Balance Support: Feet supported Dynamic Sitting-Level of Assistance: Independent Functional Assessments: Bed Mobility Bed Mobility: No Transfers Transfer: Yes Transfer 1 Technique 1: Sit to stand, Stand to sit Transfer Device 1: Walker Transfer Level of Assistance 1: Modified independent Ambulation/Gait Training Ambulation/Gait Training Performed: Yes Ambulation/Gait Training 1 Surface 1: Level tile Device 1: Rolling walker Assistance 1: Modified independent Quality of Gait 1: Diminished heel strike, Decreased step length (slower herve) Comments/Distance (ft) 1: 124ft; patient asking how to use walker and gait pattern. PT educated patient on use of FWW and how the use could change if she is in more pain. PT encouraged patient to take normal (swing thru) steps as able Extremity/Trunk Assessments: LE strength grossly >/=3+/5 Reports leg pain down L buttock to foot at times. Mild pain at present Outcome Measures: [facility] Basic Mobility Turning from your back to your side while in a flat bed without using bedrails: None Moving from lying on your back to sitting on the side of a flat bed without using bedrails: None Moving to and from bed to chair (including a wheelchair): None Standing up from a chair using your arms (e.g. wheelchair or bedside chair): None To walk in hospital room: None Climbing 3-5 steps with railing: Total Basic Mobility - Total Score: 21 FSS-ICU Ambulation: Walks >/ or equal to 50 feet with any assistance x1 Rolling: Modified independence, requires use of assistive device Sitting: Complete independence Transfer Ckt-oc-Ngnes: Modified independence, requires use of assistive device Transfer Xkdozw-uq-Zqz: Modified independence, requires use of assistive device Total Score: 27 Goals: No further acute PT needs identified Education Documentation Mobility Training, taught by Liz Child PT at 09/24/2024 12:04 PM. Learner: Significant Other, Patient Readiness: Acceptance Method: Explanation, Demonstration Response: Verbalizes Understanding, Demonstrated Understanding Comment: how to use FWW and when it is indicated to use. gait pattern to use when in increased pain (step-to) vs normal gait pattern (step-thru); benefits of outpatient PT. sciatica vs spine/nerve root impingement differences and therapy intervention strategies Education Comments No comments found. [1] Patient Active Problem List Diagnosis Elevated glucose Hyperlipidemia Multiple thyroid nodules Osteoporosis Severe obstructive sleep apnea Tubular adenoma of colon Hypertension Agatston CAC score, >400 Hyponatremia Occupational Therapy Therapy Communication Note Patient Name: Uzma Duran Department: [facility] ICU Room: 330/330-A Today's Date: 09/24/2024 Discipline: Occupational Therapy Missed Visit: Missed Visit Reason: Missed Visit Reason: Other (Comment) (pt had just gotten out of the shower and is planned to go home today.) Care Transitions: Patient reviewed in care round meeting this AM, ADOD later today. Met with patient and spouse at bedside. She received her front wheeled walker yesterday from [facility]. Discharge plan is return home, denies any other needs or in home services at this time. Medicare IMM reviewed with patient yesterday with no questions. Care team available upon request. Lovely Bianchi RN/TCC Uzma Duran is a 78 y.o. female on day 2 of admission presenting with Hyponatremia. Subjective Slight generalized weakness Left leg pain likely sciatica Objective Physical Exam General Appearance: AAO x 3, Skin: skin color pink, warm, and dry; no suspicious rashes or lesions Eyes : PERRL, EOM's intact ENT: mucous membranes pink and moist Neck: normocephalic Respiratory: lungs clear to auscultation anteriorly; no wheezing, rhonchi, or crackles. Heart: regular rate and rhythm. Abdomen: Nondistended, positive bowel sounds x4, soft, nontender Extremities: no edema Peripheral pulses: normal x4 extremities Neuro: alert, coherent and conversant, no focal motor deficits Last Recorded Vitals Blood pressure 111/64, pulse 91, temperature 36 C (96.8 F), temperature source Temporal, resp. rate 18, height (!) 1.524 m (5'), weight 57.5 kg (126 lb 12.2 oz), SpO2 99%. Intake/Output last 3 Shifts: I/O last 3 completed shifts: In: 5720.8 (99.5 mL/kg) [I.V.:1154.2 (20.1 mL/kg); IV Piggyback:4566.7] Out: 725 (12.6 mL/kg) [Urine:725 (0.4 mL/kg/hr)] Weight: 57.5 kg Relevant Results Results for orders placed or performed during the hospital encounter of 09/21/24 (from the past 24 hours) TSH Result Value Ref Range Thyroid Stimulating Hormone 1.12 0.44 - 3.98 mIU/L Comprehensive Metabolic Panel Result Value Ref Range Glucose 115 (H) 74 - 99 mg/dL Sodium 129 (L) 136 - 145 mmol/L Potassium 4.1 3.5 - 5.3 mmol/L Chloride 101 98 - 107 mmol/L Bicarbonate 23 21 - 32 mmol/L Anion Gap 9 (L) 10 - 20 mmol/L Urea Nitrogen 18 6 - 23 mg/dL Creatinine 0.58 0.50 - 1.05 mg/dL eGFR >90 >60 mL/min/1.73m*2 Calcium 8.1 (L) 8.6 - 10.3 mg/dL Albumin 2.9 (L) 3.4 - 5.0 g/dL Alkaline Phosphatase 48 33 - 136 U/L Total Protein 5.3 (L) 6.4 - 8.2 g/dL AST 11 9 - 39 U/L Bilirubin, Total 0.6 0.0 - 1.2 mg/dL ALT 14 7 - 45 U/L CBC Result Value Ref Range WBC 11.7 (H) 4.4 - 11.3 x10*3/uL nRBC 0.0 0.0 - 0.0 /100 WBCs RBC 3.68 (L) 4.00 - 5.20 x10*6/uL Hemoglobin 11.6 (L) 12.0 - 16.0 g/dL Hematocrit 35.2 (L) 36.0 - 46.0 % MCV 96 80 - 100 fL MCH 31.5 26.0 - 34.0 pg MCHC 33.0 32.0 - 36.0 g/dL RDW 13.2 11.5 - 14.5 % Platelets 263 150 - 450 x10*3/uL ECG 12 Lead Result Date: 09/23/2024 Normal sinus rhythm Low voltage QRS Cannot rule out Anterior infarct , age undetermined Abnormal ECG No previous ECGs available See ED provider note for full interpretation and clinical correlation Confirmed by Gertrudis Haji ([id number]) on 09/23/2024 10:39:[address] lumbar spine w IV contrast Result Date: 09/21/2024 Interpreted By: Igor Sharif, STUDY: CT LUMBAR SPINE W IV CONTRAST 09/21/2024 6:05 pm INDICATION: Signs/Symptoms:left leg weakness, sciatic type pain COMPARISON: None. ACCESSION NUMBER(S): [id number] ORDERING CLINICIAN: BLANCA ROJO TECHNIQUE: Axial CT images of the lumbar spine are obtained. Axial, coronal and sagittal reconstructions are provided for review. FINDINGS: Demineralized bones. Grade 1 anterolisthesis at L4-L5 with facet arthropathy and broad-based disc bulge. This causes mild spinal stenosis to about 8 mm with lateral recess stenosis. No evidence of acute fracture. Remaining levels are otherwise unremarkable with mild degenerative changes seen. No high-grade central canal or foraminal stenosis by CT criteria. Distended urinary bladder Degenerative changes most notable at L4-L5. Grade 1 degenerative anterolisthesis. If concern for nerve root impingement or other radiculopathy symptoms, consider MRI. Vascular calcification. Distended urinary bladder. No acute fracture. MACRO: None Signed by: Igor Sharif 09/21/2024 6:53 PM Dictation workstation: [id number] CT head wo IV contrast Result Date: 09/21/2024 Interpreted By: Igor Sharif, STUDY: CT HEAD WO IV CONTRAST; 09/21/2024 6:05 pm INDICATION: Signs/Symptoms:weakness. COMPARISON: None. ACCESSION NUMBER(S): [id number] ORDERING CLINICIAN: BLANCA ROJO TECHNIQUE: Noncontrast axial CT scan of head was performed. Angled reformats in brain and bone windows were generated. The images were reviewed in bone, brain, blood and soft tissue windows. FINDINGS: CSF Spaces: The ventricles, sulci and basal cisterns are within normal limits. There is no extraaxial fluid collection. Volume loss; frontal lobe predominant Parenchyma: The herring-white differentiation is intact. There is no mass effect or midline shift. There is no intracranial hemorrhage. Calvarium: The calvarium is unremarkable. Paranasal sinuses and mastoids: Bilateral mastoid opacification. Paranasal sinuses otherwise clear Vascular calcification No evidence of acute cortical infarct or intracranial hemorrhage. Frontal lobe predominant volume loss. Bilateral mastoid opacification MACRO: None Signed by: Igor Sharif 09/21/2024 6:47 PM Dictation workstation: [id number] Assessment & Plan Hyponatremia 78-year-old female with 1. Hyponatremia generalized weakness Fluids were discontinued Fluid restriction Sodium level rising Follow urine osmole and sodium Euvolemic Check BMP daily TSH fine Continue cardiopulmonary monitoring Follow vitals Monitor clinical progress Follow mentation Education counseling Supportive care #2 left leg pain and weakness from sciatica Tylenol, PT CT head negative for acute process On Dilaudid IV for severe pain and oxycodone for moderate pain send Robaxin for muscle spasm CT lumbar spine with degenerative changes at L4-5. Can consider MRI outpatient to evaluate nerve impingement, radiculopathy #3 hypertension Holding lisinopril Monitor pressure Antihypertensives IV as required #4 neuropathy, Neurontin #5 hyperlipidemia atorvastatin 20 Mg daily #6 coronary artery disease prophylaxis Aspirin 81 mg daily #7 hypokalemia Potassium supplement #8 bowel regimen for constipation prophylaxis Lovenox for DVT prophylaxis Possible DC tomorrow if stable, follow sodium level and nephrology recommendation Suzanne Steward MD Physical Therapy Therapy Communication Note Patient Name: Uzma Duran Department[facility] Date: 09/23/2024 Discipline: Physical Therapy Missed Visit: Missed Visit Reason: attempt; patient in shower. Reattempt as schedule allows. Per nursing and OT patient is up in room with FWW and SBA Missed Time: Attempt Comment: 09/23/24 1124 Discharge Planning Living Arrangements Spouse/significant other Support Systems Spouse/significant other;Children Assistance Needed None Type of Residence Private residence Number of Stairs to Enter Residence 1 (1 story home with basement) Number of Stairs Within Residence 12 (basement) Do you have animals or pets at home? No Home or Post Acute Services None Expected Discharge Disposition Home Does the patient need discharge transport arranged? No Financial Resource Strain How hard is it for you to pay for the very basics like food, housing, medical care, and heating? Not hard Housing Stability In the last 12 months, was there a time when you were not able to pay the mortgage or rent on time? N In the past 12 months, how many times have you moved where you were living? 0 At any time in the past 12 months, were you homeless or living in a assisted (including now)? N Transportation Needs In the past 12 months, has lack of transportation kept you from medical appointments or from getting medications? no In the past 12 months, has lack of transportation kept you from meetings, work, or from getting things needed for daily living? No Stroke Family Assessment Stroke Family Assessment Needed No Intensity of Service Intensity of Service 0-30 min Care Transitions: Met with patient at beside, sitting up in chair. Patient spouse also present. Role of TCC explained. Demographics/contacts verified. PCP is Cyndi Horn. Preferred pharmacy [facility] in [place]. Denies any difficulty obtaining/affording medications. She has been independent at home with ADL's and drives self. States she has recently felt weak and mobility is decreased. PT/OT emma completed this AM with recommendations for a Front wheeled walker at home. Discussed DME provider choices for a FWW. Patient would like to use [facility] and have one delivered to hospital room before she discharged home. Discharge plan is return home, denies any other needs or in home services at this time. Spouse to transport home when medically ready. Medicare IMM reviewed, patient signed, copy provided, original placed in chart. Voiced understanding. Lovely Bianchi RN/TCC -[phone] Patient reviewed in care round meeting this AM, ADOD 24 hours. Obtained FWW order from hospital provider and faxed to [facility] @ [phone]. Spoke to Naveed @ [facility] to notify of FWW order faxed and needing delivered to patient hospital room before discharge. Care team to follow. Lovely Bianchi RN/TCC Uzma Duran is a 78 y.o. female on day 2 of admission presenting with Hyponatremia. Subjective Patient seen and examined at the bedside Sitting comfortably in bedside chair eating breakfast Has no major complaints at this time No acute issues or events noted Objective Vitals 24HR Heart Rate: [76-103] Temp: [35.9 C (96.6 F)-36.4 C (97.5 F)] Resp: [14-24] BP: (84-161)/(49-100) Weight: [57.5 kg (126 lb 12.2 oz)] SpO2: [87 %-100 %] Intake/Output last 3 Shifts: Intake/Output Summary (Last 24 hours) at 09/23/2024 0934 Last data filed at 09/23/2024 0900 Gross per 24 hour Intake 360 ml Output -- Net 360 ml Physical Exam Constitutional: Appearance: Normal appearance. HENT: Head: Normocephalic and atraumatic. Right Ear: External ear normal. Left Ear: External ear normal. Nose: Nose normal. Mouth/Throat: Mouth: Mucous membranes are moist. Pharynx: Oropharynx is clear. Eyes: Extraocular Movements: Extraocular movements intact. Conjunctiva/sclera: Conjunctivae normal. Pupils: Pupils are equal, round, and reactive to light. Cardiovascular: Rate and Rhythm: Normal rate and regular rhythm. Pulmonary: Effort: Pulmonary effort is normal. Breath sounds: Normal breath sounds. Abdominal: General: Abdomen is flat. Palpations: Abdomen is soft. Skin: General: Skin is warm and dry. Neurological: General: No focal deficit present. Mental Status: She is alert and oriented to person, place, and time. Psychiatric: Mood and Affect: Mood normal. Behavior: Behavior normal. Relevant Results This patient currently has cardiac telemetry ordered; if you would like to modify or discontinue the telemetry order, click here to go to the orders activity to modify/discontinue the order. Assessment & Plan Hyponatremia Hyponatremia: Euvolemic Left-sided leg pain and weakness Hypoalbuminemia with protein calorie malnutrition Slight leukocytosis Normocytic anemia Plan: With discontinuing IV fluids and a fluid restriction her sodium has risen to 129 It has risen by 8 which is just a little bit faster than we want but is still within a safe range Continue as she is I have asked that her urine sodium and urine osmole be sent off so that we can give her an explanation as to why this happened Otherwise continue as she is on currently Gerson Ram DO Occupational Therapy Evaluation and Treatment Patient Name: Uzma Duran Today's Date: 09/23/2024 Time Calculation Start Time: 747 Stop Time: 823 Time Calculation (min): 36 min 330/330-A Assessment IP OT Assessment OT Assessment: pt with recent frequent falls due to hyponatremia and sciatica. pt typically is very active and able to perform all mobility, ADL, and IADL with no device. pt currently is needing to use FWW and needing min assist for ADLs due to new onset of weakness. pt would benefit from OT services while in the hospital in order to ensure safe return home. Prognosis: Good Barriers to Discharge Home: No anticipated barriers Evaluation/Treatment Tolerance: Patient tolerated treatment well End of Session Communication: PCT/NA/CTA, Progressive Care Manager End of Session Patient Position: Up in chair, Alarm on (call light in reach) Plan: Treatment Interventions: ADL retraining, Functional transfer training, Neuromuscular reeducation, Endurance training OT Frequency: 2 times per week OT Discharge Recommendations: Other (Comment), No OT needed after discharge Equipment Recommended upon Discharge: Wheeled walker OT Recommended Transfer Status: Assist of 1 OT - OK to Discharge: Yes (once medically stable) Subjective Current Problem: 1. Hyponatremia 2. Generalized weakness 3. Acute left-sided low back pain with left-sided sciatica 4. Multiple falls General: General Reason for Referral: 78 year old female admitted for low back pain, sciatica with newly prescribed gabapentin with recent hx of legs giving out/falls. pt was found to have hyponatremia. Referred By: Bhupinder Family/Caregiver Present: No Prior to Session Communication: Bedside nurse Patient Position Received: Up in chair, Alarm on General Comment: pt agreeable to assessment Precautions: Medical Precautions: Fall precautions Vital Signs: Vital Signs Comment: no concerns on ICU monitor Pain: Pain Assessment Pain Assessment: 0-10 0-10 (Numeric) Pain Score: 0 - No pain (no c/o pain during assessment yet states that the sciatic pain has been severe. pt recently saw her PCP and has an appointment for outpt PT on 09/27/24) Objective Cognition: Overall Cognitive Status: Within Functional Limits Orientation Level: Oriented X4 Home Living: Type of Home: House Lives With: Spouse Home Adaptive Equipment: None Home Layout: One level Home Access: Stairs to enter without rails Entrance Stairs-Number of Steps: 2 Prior Function: ADL Assistance: Independent Homemaking Assistance: Independent Ambulatory Assistance: Independent (no device) ADL: Eating Assistance: Independent Grooming Assistance: Independent Bathing Assistance: Minimal UE Dressing Assistance: Independent LE Dressing Assistance: Minimal Toileting Assistance with Device: Stand by Activity Tolerance: Endurance: Endurance does not limit participation in activity Bed Mobility/Transfers: Bed Mobility Bed Mobility: No Transfers Transfer: Yes Transfer 1 Technique 1: Sit to stand, Stand to sit Transfer Device 1: Walker, Gait belt Transfer Level of Assistance 1: Contact guard Trials/Comments 1: education on correct hand placement. pt able to return demo with 100% accuracy Ambulation/Gait Training: Functional Mobility Functional Mobility Performed: Yes Functional Mobility 1 Surface 1: Level tile Device 1: Rolling walker Functional Mobility Support Devices: Gait belt Assistance 1: Contact guard Comments 1: education on walker height and appropriate use Sitting Balance: Static Sitting Balance Static Sitting-Level of Assistance: Independent Dynamic Sitting Balance Dynamic Sitting-Level of Assistance: Independent Vision: Vision - Basic Assessment Current Vision: No visual deficits Sensation: Light Touch: No apparent deficits Strength: Strength Comments: BUE WNL Coordination: Movements are Fluid and Coordinated: Yes Outcome Measures: [facility] Daily Activity Putting on and taking off regular lower body clothing: A little Bathing (including washing, rinsing, drying): A little Putting on and taking off regular upper body clothing: None Toileting, which includes using toilet, bedpan or urinal: A little Taking care of personal grooming such as brushing teeth: None Eating Meals: None Daily Activity - Total Score: 21 EDUCATION: Education Documentation Body Mechanics, taught by Gladis Stokes OT at 09/23/2024 8:52 AM. Learner: Patient Readiness: Acceptance Method: Explanation, Demonstration Response: Verbalizes Understanding, Demonstrated Understanding Comment: safety with FWW during ADL and mobility ADL Training, taught by Gladis Stokes OT at 09/23/2024 8:52 AM. Learner: Patient Readiness: Acceptance Method: Explanation, Demonstration Response: Verbalizes Understanding, Demonstrated Understanding Comment: safety with FWW during ADL and mobility Education Comments No comments found. Goals: Encounter Problems Encounter Problems (Active) ADLs Patient with complete lower body dressing with independent level of assistance (Progressing) Start: 09/23/24 Expected End: 10/07/24 pt will tolerate 25 minutes of ADL tasks with no LOB and good safety (Progressing) Start: 09/23/24 Expected End: 10/07/24 BALANCE Pt will maintain dynamic standing balance during ADL task with modified independent level of assistance in order to demonstrate decreased risk of falling and improved postural control. (Progressing) Start: 09/23/24 Expected End: 10/07/24 Uzma Duran is a 78 y.o. female on day 1 of admission presenting with Hyponatremia. Subjective Generalized weakness No focal weakness or paralysis or seizures or flaccid paralysis No blurry vision Low back pain with sciatica Objective Physical Exam General Appearance: AAO x 3, Skin: skin color pink, warm, and dry; no suspicious rashes or lesions Eyes : PERRL, EOM's intact ENT: mucous membranes pink and moist Neck: normocephalic Respiratory: lungs clear to auscultation anteriorly; no wheezing, rhonchi, or crackles. Heart: regular rate and rhythm. Abdomen: Nondistended, positive bowel sounds x4, soft, nontender Extremities: no edema Peripheral pulses: normal x4 extremities Neuro: alert, coherent and conversant, no focal motor deficits Last Recorded Vitals Blood pressure (!) 84/49, pulse 83, temperature 36.2 C (97.2 F), temperature source Temporal, resp. rate 23, height (!) 1.524 m (5'), weight 59.4 kg (130 lb 15.3 oz), SpO2 97%. Intake/Output last 3 Shifts: I/O last 3 completed shifts: In: 5720.8 (96.3 mL/kg) [I.V.:1154.2 (19.4 mL/kg); IV Piggyback:4566.7] Out: 725 (12.2 mL/kg) [Urine:725 (0.3 mL/kg/hr)] Weight: 59.4 kg Relevant Results Results for orders placed or performed during the hospital encounter of 09/21/24 (from the past 24 hours) Urinalysis with Reflex Culture and Microscopic Result Value Ref Range Color, Urine Colorless (N) Light-Yellow, Yellow, Dark-Yellow Appearance, Urine Clear Clear Specific [place], Urine 1.009 1.005 - 1.035 pH, Urine 6.5 5.0, 5.5, 6.0, 6.5, 7.0, 7.5, 8.0 Protein, Urine NEGATIVE NEGATIVE, 10 (TRACE), 20 (TRACE) mg/dL Glucose, Urine Normal Normal mg/dL Blood, Urine NEGATIVE NEGATIVE mg/dL Ketones, Urine NEGATIVE NEGATIVE mg/dL Bilirubin, Urine NEGATIVE NEGATIVE mg/dL Urobilinogen, Urine Normal Normal mg/dL Nitrite, Urine NEGATIVE NEGATIVE Leukocyte Esterase, Urine NEGATIVE NEGATIVE Comprehensive metabolic panel Result Value Ref Range Glucose 116 (H) 74 - 99 mg/dL Sodium 121 (L) 136 - 145 mmol/L Potassium 4.0 3.5 - 5.3 mmol/L Chloride 94 (L) 98 - 107 mmol/L Bicarbonate 23 21 - 32 mmol/L Anion Gap 8 (L) 10 - 20 mmol/L Urea Nitrogen 12 6 - 23 mg/dL Creatinine 0.56 0.50 - 1.05 mg/dL eGFR >90 >60 mL/min/1.73m*2 Calcium 7.8 (L) 8.6 - 10.3 mg/dL Albumin 3.2 (L) 3.4 - 5.0 g/dL Alkaline Phosphatase 55 33 - 136 U/L Total Protein 5.6 (L) 6.4 - 8.2 g/dL AST 14 9 - 39 U/L Bilirubin, Total 0.8 0.0 - 1.2 mg/dL ALT 15 7 - 45 U/L Magnesium Result Value Ref Range Magnesium 1.72 1.60 - 2.40 mg/dL CBC Result Value Ref Range WBC 12.1 (H) 4.4 - 11.3 x10*3/uL nRBC 0.0 0.0 - 0.0 /100 WBCs RBC 3.65 (L) 4.00 - 5.20 x10*6/uL Hemoglobin 11.8 (L) 12.0 - 16.0 g/dL Hematocrit 33.8 (L) 36.0 - 46.0 % MCV 93 80 - 100 fL MCH 32.3 26.0 - 34.0 pg MCHC 34.9 32.0 - 36.0 g/dL RDW 12.7 11.5 - 14.5 % Platelets 240 150 - 450 x10*3/uL CT lumbar spine w IV contrast Result Date: 09/21/2024 Interpreted By: Igor Sharif, STUDY: CT LUMBAR SPINE W IV CONTRAST 09/21/2024 6:05 pm INDICATION: Signs/Symptoms:left leg weakness, sciatic type pain COMPARISON: None. ACCESSION NUMBER(S): [id number] ORDERING CLINICIAN: BLANCA ROJO TECHNIQUE: Axial CT images of the lumbar spine are obtained. Axial, coronal and sagittal reconstructions are provided for review. FINDINGS: Demineralized bones. Grade 1 anterolisthesis at L4-L5 with facet arthropathy and broad-based disc bulge. This causes mild spinal stenosis to about 8 mm with lateral recess stenosis. No evidence of acute fracture. Remaining levels are otherwise unremarkable with mild degenerative changes seen. No high-grade central canal or foraminal stenosis by CT criteria. Distended urinary bladder Degenerative changes most notable at L4-L5. Grade 1 degenerative anterolisthesis. If concern for nerve root impingement or other radiculopathy symptoms, consider MRI. Vascular calcification. Distended urinary bladder. No acute fracture. MACRO: None Signed by: Igor Sharif 09/21/2024 6:53 PM Dictation workstation: [id number] CT head wo IV contrast Result Date: 09/21/2024 Interpreted By: Igor Sharif, STUDY: CT HEAD WO IV CONTRAST; 09/21/2024 6:05 pm INDICATION: Signs/Symptoms:weakness. COMPARISON: None. ACCESSION NUMBER(S): [id number] ORDERING CLINICIAN: BLANCA ROJO TECHNIQUE: Noncontrast axial CT scan of head was performed. Angled reformats in brain and bone windows were generated. The images were reviewed in bone, brain, blood and soft tissue windows. FINDINGS: CSF Spaces: The ventricles, sulci and basal cisterns are within normal limits. There is no extraaxial fluid collection. Volume loss; frontal lobe predominant Parenchyma: The herring-white differentiation is intact. There is no mass effect or midline shift. There is no intracranial hemorrhage. Calvarium: The calvarium is unremarkable. Paranasal sinuses and mastoids: Bilateral mastoid opacification. Paranasal sinuses otherwise clear Vascular calcification No evidence of acute cortical infarct or intracranial hemorrhage. Frontal lobe predominant volume loss. Bilateral mastoid opacification MACRO: None Signed by: Igor Sharif 09/21/2024 6:47 PM Dictation workstation: [id number] XR chest 1 view Result Date: 09/21/2024 Interpreted By: Dee Dee Durbin, STUDY: Chest, single AP view. INDICATION: Signs/Symptoms:Chest Pain. COMPARISON: None. ACCESSION NUMBER(S): [id number] ORDERING CLINICIAN: BLANCA ROJO FINDINGS: The cardiac silhouette size is within normal limits. There is no focal consolidation, edema or pneumothorax. No sizeable pleural effusion. No acute osseous abnormality. 1. No acute cardiopulmonary process. MACRO: None. Signed by: Dee Dee Durbin 09/21/2024 5:08 PM Dictation workstation: [id number] Scheduled medications Scheduled Medications[1] Continuous medications Continuous Medications[2] PRN medications PRN Medications[3] Assessment & Plan Hyponatremia 78-year-old female with 1. Hyponatremia generalized weakness Continue fluids Check urine osmole and sodium Fluid restriction Euvolemic Watch volume status Check BMP daily Follow vitals TSH Cardiopulmonary monitoring Follow clinically Follow mentation #2 left leg pain and weakness from sciatica Supportive care Recommend outpatient PT Tylenol Symptomatic management Education counseling CT head negative for acute process On oxycodone as well as Dilaudid IV Robaxin CT lumbar spine with degenerative changes at L4-5. To consider MRI outpatient to evaluate nerve impingement, radiculopathy #3 hypertension Holding lisinopril Monitor pressure Antihypertensives IV as required #4 neuropathy On Neurontin #5 hyperlipidemia Atorvastatin 20 Mg daily 6 coronary artery disease prophylaxis Aspirin 81 mg daily 7 hypokalemia KCl given #8 bowel regimen for constipation prophylaxis Lovenox for DVT prophylaxis Suzanne Steward MD [1] aspirin, 81 mg, oral, Daily atorvastatin, 20 mg, oral, Daily enoxaparin, 40 mg, subcutaneous, q24h [2] [3] PRN medications: acetaminophen, alum-mag hydroxide-simeth, benzocaine-menthol, benzonatate, bisacodyl, calcium carbonate, gabapentin, guaiFENesin, hydrALAZINE, HYDROmorphone, hydrOXYzine HCL, melatonin, meloxicam, methocarbamol, metoprolol, ondansetron, oxyCODONE, polyethylene glycol, prochlorperazine Physical Therapy Therapy Communication Note Patient Name: Uzma Duran Department[facility] Date: 09/22/2024 Discipline: Physical Therapy Missed Visit: PT Missed Visit: Yes Missed Visit Reason: Missed Visit Reason: Other (Comment) Missed Time: Attempt Comment: Patient agreeable for subjective portion of evaluation but requested PT evaluation be performed tomorrow to see baseline after receiving medical treatment and due to fatigue of already walking in room with nursing and sitting up in chair. Patient states chronic history of sciatic nerve pain with L radicular symptoms. However, the past 3 days, she has had x1 each day fall where Cate YAÑEZ just gave out on her but she was able to regain balance. She reports by yesterday, she felt so weak that she had to use transport chair which was a new symptom. She lives in 1 story home with full basement. 1-2 ONESIMO with no grab bars. She has an active lifestyle stating she hikes so does not own an assistive device. Lives with her spouse at home. Patient reporting that doctor told her sodium levels are low enough that would influence her muscle response. Patient is scheduled for outpatient physical therapy evaluation this upcoming Monday. Patient said she felt stable with use of RW but would not have felt confident to walk without use of the RW. Did discuss with patient to utilize assistive device and call light while in hospital to prevent falls with patient verbalizing agreement. PT evaluation tomorrow as appropriate documented in this encounter [facility] Work Phone: 09-24-2024 Hospital course Narrative Discharge Diagnosis Hyponatremia Issues Requiring Follow-Up Hyponatremia Discharge Meds Medication List PAUSE taking these medications losartan 50 mg tablet; Wait to take this until your doctor or other care provider tells you to start again.; Commonly known as: Cozaar; Take 1 tablet (50 mg) by mouth once daily. START taking these medications furosemide 20 mg tablet; Commonly known as: Lasix; Take 1 tablet (20 mg) by mouth 2 times daily (morning and late afternoon). sodium chloride 1,000 mg tablet; Take 2 tablets (2 g) by mouth 2 times daily (morning and late afternoon). traMADol 50 mg tablet; Commonly known as: Ultram; Take 1 tablet (50 mg) by mouth every 8 hours if needed for severe pain (7 - 10) for up to 21 doses. CHANGE how you take these medications meloxicam 15 mg tablet; Commonly known as: Mobic; Take 1 tablet (15 mg) by mouth once daily with breakfast.; Start taking on: September 25, 2024; What changed: when to take this, reasons to take this CONTINUE taking these medications atorvastatin 40 mg tablet; Commonly known as: Lipitor; Take 0.5 tablets (20 mg) by mouth once daily. COLLAGEN SKIN RENEWAL ORAL FISH OIL ORAL gabapentin 300 mg capsule; Commonly known as: Neurontin; Take 1 capsule (300 mg) by mouth as needed at bedtime (pain). L. acidophilus/Bifid. animalis 32 billion cell capsule methocarbamol 500 mg tablet; Commonly known as: Robaxin; Take 1 tablet (500 mg) by mouth as needed at bedtime for muscle spasms for up to 10 days. slkukjgb-tabd-duevl-oreg-capry 100 mg-150 mg- 50 mg-150 mg capsule VITAMIN B-12 ORAL zinc gluconate 50 mg elemental tablet STOP taking these medications predniSONE 10 mg tablet; Commonly known as: Deltasone Test Results Pending At Discharge Pending Labs No current pending labs. Disposition: home Hospital Course 78 y.o. female presenting with generalized weakness and also left low back pain radiating to her left lower extremity. She states that her left lower extremity has given out multiple times in the past 3 weeks. 4 out of 5 strength to the left lower extremity noted. She denies any signs of cauda equina. CT scan of the lumbar spine shows degenerative changes especially at L4-L5 and grade 1 degenerative anterolisthesis. Her sodium was noted to be 118. No history of hyponatremia. During hospital stay, patient would be seen by nephrology. She would be placed on fluid restrictions and have improved to 129 at discharge. Symptoms would improve with improvement of sodium. She would be placed on salt tabs and lasix at discharge as well as continue fluid restrictions with close follow up with nephrology outpatient in a week with repeat BMP. Patient would also have her gabapentin discontinued and have her meloxicam ordered scheduled as well as prescribed tramadol for her left back/hip pain. She will need to continue outpatient follow up for her sciatica. Follow up with PCP in one week. Vital signs were stable at discharge. Patient agreed to discharge plan. 35 minutes total was spent on discharge planning including chart review, medication ordering, and discussion with family and hospital staff. Pertinent Physical Exam At Time of Discharge Physical Exam General Appearance: AAO x 3, Skin: skin color pink, warm, and dry; no suspicious rashes or lesions Eyes : PERRL, EOM's intact ENT: mucous membranes pink and moist Neck: normocephalic Respiratory: lungs clear to auscultation anteriorly; no wheezing, rhonchi, or crackles. Heart: regular rate and rhythm. Abdomen: Nondistended, positive bowel sounds x4, soft, nontender Extremities: no edema Peripheral pulses: normal x4 extremities Neuro: alert, coherent and conversant, no focal motor deficits Outpatient Follow-Up Future Appointments Date Time Provider Department Center 09/27/2024 11:30 AM Jaydon Harrell, PT [id number] [facility] 10/01/2024 10:20 AM Cyndi Horn MD [id number] [facility] 10/03/2024 9:30 AM Gerson Ram DO [id number] [facility] 02/07/2025 11:00 AM Cyndi Horn MD [id number] [facility] Hung Iyer DO documented in this encounter [facility] [facility] Work Phone: 09-24-2024 Hospital Discharge instructions Hung Iyer DO - 09/24/2024 12:54 PM EDT You have been started on salt tablets and lasix to increase your sodium. Restrict yourself to 40-60 fl oz of fluid every day as well as a high protein diet. You will have your sodium level rechecked on 10/02 with follow up with Dr. Ram. The following attachments cannot be sent through Care Everywhere.High Calorie, High Protein Diet (Lebanese)Fluid Restricted Diet (Lebanese)documented in this encounter [facility] Work Phone: 09-24-2024 Plan of care note The patient's goals for the shift include The clinical goals for the shift include improved hyponatremia Problem: Pain - Adult Goal: Verbalizes/displays adequate comfort level or baseline comfort level Outcome: Progressing Problem: Safety - Adult Goal: Free from fall injury Outcome: Progressing Problem: Discharge Planning Goal: Discharge to home or other facility with appropriate resources Outcome: Progressing Problem: Chronic Conditions and Co-morbidities Goal: Patient's chronic conditions and co-morbidity symptoms are monitored and maintained or improved Outcome: Progressing Problem: Nutrition Goal: Nutrient intake appropriate for maintaining nutritional needs Outcome: Progressing Problem: Fall/Injury Goal: Not fall by end of shift Outcome: Progressing Goal: Verbalize understanding of personal risk factors for fall in the hospital Outcome: Progressing Problem: Pain Goal: Turns in bed with improved pain control throughout the shift Outcome: Progressing Goal: Performs ADL's with improved pain control throughout shift Outcome: Progressing Goal: Free from opioid side effects throughout the shift Outcome: Progressing Goal: Free from acute confusion related to pain meds throughout the shift Outcome: Progressing Problem: Skin Goal: Participates in plan/prevention/treatment measures Outcome: Progressing [facility] 09-24-2024 Miscellaneous Notes The patient's goals for the shift include The clinical goals for the shift include improved hyponatremia Problem: Pain - Adult Goal: Verbalizes/displays adequate comfort level or baseline comfort level Outcome: Progressing Problem: Safety - Adult Goal: Free from fall injury Outcome: Progressing Problem: Discharge Planning Goal: Discharge to home or other facility with appropriate resources Outcome: Progressing Problem: Chronic Conditions and Co-morbidities Goal: Patient's chronic conditions and co-morbidity symptoms are monitored and maintained or improved Outcome: Progressing Problem: Nutrition Goal: Nutrient intake appropriate for maintaining nutritional needs Outcome: Progressing Problem: Fall/Injury Goal: Not fall by end of shift Outcome: Progressing Goal: Verbalize understanding of personal risk factors for fall in the hospital Outcome: Progressing Problem: Pain Goal: Turns in bed with improved pain control throughout the shift Outcome: Progressing Goal: Performs ADL's with improved pain control throughout shift Outcome: Progressing Goal: Free from opioid side effects throughout the shift Outcome: Progressing Goal: Free from acute confusion related to pain meds throughout the shift Outcome: Progressing Problem: Skin Goal: Participates in plan/prevention/treatment measures Outcome: Progressing Problem: Pain - Adult Goal: Verbalizes/displays adequate comfort level or baseline comfort level Outcome: Progressing Problem: Safety - Adult Goal: Free from fall injury Outcome: Progressing Problem: Discharge Planning Goal: Discharge to home or other facility with appropriate resources Outcome: Progressing Problem: Chronic Conditions and Co-morbidities Goal: Patient's chronic conditions and co-morbidity symptoms are monitored and maintained or improved Outcome: Progressing Problem: Nutrition Goal: Nutrient intake appropriate for maintaining nutritional needs Outcome: Progressing Problem: Fall/Injury Goal: Not fall by end of shift Outcome: Progressing Goal: Verbalize understanding of personal risk factors for fall in the hospital Outcome: Progressing Problem: Pain Goal: Turns in bed with improved pain control throughout the shift Outcome: Progressing Goal: Performs ADL's with improved pain control throughout shift Outcome: Progressing Goal: Free from opioid side effects throughout the shift Outcome: Progressing Goal: Free from acute confusion related to pain meds throughout the shift Outcome: Progressing Problem: Skin Goal: Participates in plan/prevention/treatment measures Outcome: Progressing The clinical goals for the shift include improved hyponatremia The patient's goals for the shift include The clinical goals for the shift include Pt will maintain baseline LOC and remain free of neurological symptoms related to hyponatremia. Problem: Pain - Adult Goal: Verbalizes/displays adequate comfort level or baseline comfort level Outcome: Progressing Problem: Safety - Adult Goal: Free from fall injury Outcome: Progressing Problem: Discharge Planning Goal: Discharge to home or other facility with appropriate resources Outcome: Progressing Problem: Chronic Conditions and Co-morbidities Goal: Patient's chronic conditions and co-morbidity symptoms are monitored and maintained or improved Outcome: Progressing Problem: Nutrition Goal: Nutrient intake appropriate for maintaining nutritional needs Outcome: Progressing Problem: Fall/Injury Goal: Not fall by end of shift Outcome: Progressing Goal: Verbalize understanding of personal risk factors for fall in the hospital Outcome: Progressing Problem: Pain Goal: Turns in bed with improved pain control throughout the shift Outcome: Progressing Goal: Performs ADL's with improved pain control throughout shift Outcome: Progressing Goal: Free from opioid side effects throughout the shift Outcome: Progressing Goal: Free from acute confusion related to pain meds throughout the shift Outcome: Progressing Problem: Skin Goal: Participates in plan/prevention/treatment measures Outcome: Progressing The patient's goals for the shift include maintaining LE strength and safety while AMB. The clinical goals for the shift include maintaining baseline LOC and no neurological symptoms. The clinical goals for the shift include electrolytes WNL my EOS Problem: Pain - Adult Goal: Verbalizes/displays adequate comfort level or baseline comfort level Outcome: Progressing Problem: Safety - Adult Goal: Free from fall injury Outcome: Progressing Problem: Discharge Planning Goal: Discharge to home or other facility with appropriate resources Outcome: Progressing Problem: Chronic Conditions and Co-morbidities Goal: Patient's chronic conditions and co-morbidity symptoms are monitored and maintained or improved Outcome: Progressing Problem: Nutrition Goal: Nutrient intake appropriate for maintaining nutritional needs Outcome: Progressing Problem: Fall/Injury Goal: Not fall by end of shift Outcome: Progressing Goal: Verbalize understanding of personal risk factors for fall in the hospital Outcome: Progressing Problem: Pain Goal: Turns in bed with improved pain control throughout the shift Outcome: Progressing Goal: Performs ADL's with improved pain control throughout shift Outcome: Progressing Goal: Free from opioid side effects throughout the shift Outcome: Progressing Goal: Free from acute confusion related to pain meds throughout the shift Outcome: Progressing Problem: Skin Goal: Participates in plan/prevention/treatment measures Outcome: Progressing Flowsheets (Taken 09/22/2024 0355) Participates in plan/prevention/treatment measures: Elevate heels documented in this encounter [facility] Work Phone: 09-23-2024 Plan of care note Problem: Pain - Adult Goal: Verbalizes/displays adequate comfort level or baseline comfort level Outcome: Progressing Problem: Safety - Adult Goal: Free from fall injury Outcome: Progressing Problem: Discharge Planning Goal: Discharge to home or other facility with appropriate resources Outcome: Progressing Problem: Chronic Conditions and Co-morbidities Goal: Patient's chronic conditions and co-morbidity symptoms are monitored and maintained or improved Outcome: Progressing Problem: Nutrition Goal: Nutrient intake appropriate for maintaining nutritional needs Outcome: Progressing Problem: Fall/Injury Goal: Not fall by end of shift Outcome: Progressing Goal: Verbalize understanding of personal risk factors for fall in the hospital Outcome: Progressing Problem: Pain Goal: Turns in bed with improved pain control throughout the shift Outcome: Progressing Goal: Performs ADL's with improved pain control throughout shift Outcome: Progressing Goal: Free from opioid side effects throughout the shift Outcome: Progressing Goal: Free from acute confusion related to pain meds throughout the shift Outcome: Progressing Problem: Skin Goal: Participates in plan/prevention/treatment measures Outcome: Progressing The clinical goals for the shift include improved hyponatremia [facility] 09-23-2024 Plan of care note The patient's goals for the shift include The clinical goals for the shift include Pt will maintain baseline LOC and remain free of neurological symptoms related to hyponatremia. Problem: Pain - Adult Goal: Verbalizes/displays adequate comfort level or baseline comfort level Outcome: Progressing Problem: Safety - Adult Goal: Free from fall injury Outcome: Progressing Problem: Discharge Planning Goal: Discharge to home or other facility with appropriate resources Outcome: Progressing Problem: Chronic Conditions and Co-morbidities Goal: Patient's chronic conditions and co-morbidity symptoms are monitored and maintained or improved Outcome: Progressing Problem: Nutrition Goal: Nutrient intake appropriate for maintaining nutritional needs Outcome: Progressing Problem: Fall/Injury Goal: Not fall by end of shift Outcome: Progressing Goal: Verbalize understanding of personal risk factors for fall in the hospital Outcome: Progressing Problem: Pain Goal: Turns in bed with improved pain control throughout the shift Outcome: Progressing Goal: Performs ADL's with improved pain control throughout shift Outcome: Progressing Goal: Free from opioid side effects throughout the shift Outcome: Progressing Goal: Free from acute confusion related to pain meds throughout the shift Outcome: Progressing Problem: Skin Goal: Participates in plan/prevention/treatment measures Outcome: Progressing [facility] 09-22-2024 Plan of care note The patient's goals for the shift include maintaining LE strength and safety while AMB. The clinical goals for the shift include maintaining baseline LOC and no neurological symptoms. [facility] Work Phone: 09-22-2024 Nurse Note Pt AMB from the bed to the bathroom and then to the chair for dinner, walker and one staff for stability. Spouse at bedside. [facility] 09-22-2024 Nurse Note Pt up to chair for lunch after AMB to the bathroom. Pt wobbly, but strength is good. Pt denies new or worsening pain while AMB w/ walker and one assist. [facility] Work Phone: 09-22-2024 Consult note Associated Order (s): IP CONSULT TO NEPHROLOGY Reason For Consult Hyponatremia History Of Present Illness Uzma Duran is a 78 y.o. female presenting with back pain. She presented to the emergency room secondary to left-sided pain and also falls for the last 3 days secondary to her left leg giving out on her. She states that she has been having pain of her left side and then in the past 3 days her leg has pretty much been generally and she falls when this happens. She states that this is all a pretty new finding. She was found to have a low sodium. She states that she has never had this before. She states that she does drink water on a daily basis but it does not sound like she is drinking an excessive amount of fluids. 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 Surgical History She has a past surgical history that includes Other surgical history (02/14/2019); Other surgical history (02/14/2019); and Other surgical history. Social History She reports that she has quit smoking. Her smoking use included cigarettes. She has never used smokeless tobacco. She reports that she does not currently use alcohol. She reports that she does not use drugs. Family History Family History[1] Allergies Amlodipine and Penicillins Review of Systems A full 10 point review of systems was obtained is negative except HPI as above Physical Exam Physical Exam Constitutional: Appearance: Normal appearance. HENT: Head: Normocephalic and atraumatic. Right Ear: External ear normal. Left Ear: External ear normal. Nose: Nose normal. Mouth/Throat: Mouth: Mucous membranes are moist. Pharynx: Oropharynx is clear. Eyes: Extraocular Movements: Extraocular movements intact. Conjunctiva/sclera: Conjunctivae normal. Pupils: Pupils are equal, round, and reactive to light. Cardiovascular: Rate and Rhythm: Normal rate and regular rhythm. Pulmonary: Effort: Pulmonary effort is normal. Breath sounds: Normal breath sounds. Abdominal: General: Abdomen is flat. Palpations: Abdomen is soft. Skin: General: Skin is warm and dry. Neurological: General: No focal deficit present. Mental Status: She is alert and oriented to person, place, and time. Motor: Weakness present. Psychiatric: Mood and Affect: Mood normal. Behavior: Behavior normal. I&O 24HR Intake/Output Summary (Last 24 hours) at 09/22/2024 0900 Last data filed at 09/22/2024 0600 Gross per 24 hour Intake 5720.84 ml Output 725 ml Net 4995.84 ml Vitals 24HR Heart Rate: [75-89] Temp: [35.7 C (96.3 F)-36.8 C (98.2 F)] Resp: [14-23] BP: (133-168)/(62-104) Height: [152.4 cm (5')] Weight: [57.2 kg (126 lb)-59.4 kg (130 lb 15.3 oz)] SpO2: [94 %-98 %] Relevant Results Results reviewed Assessment & Plan Hyponatremia Hyponatremia: Euvolemic Left-sided leg pain and weakness Hypoalbuminemia with protein calorie malnutrition Slight leukocytosis Normocytic anemia Plan: Discontinue IV fluids Check TSH Will follow on urine osmole and urine sodium Placed on fluid restriction Thanks for the consult I spent 35 minutes in the professional and overall care of this patient. Gerson Ram DO [1] Family History Problem Relation Name Age of Onset Asthma Mother Diabetes Mother Osteoporosis Mother Lung cancer Mother Other (cardiac disorder) Father Hypertension Father Prostate cancer Father Other (Psychological disorder) Father [facility] Work Phone: 09-22-2024 Consult note Associated Order (s): IP CONSULT TO NEPHROLOGY Reason For Consult Hyponatremia History Of Present Illness Uzma Duran is a 78 y.o. female presenting with back pain. She presented to the emergency room secondary to left-sided pain and also falls for the last 3 days secondary to her left leg giving out on her. She states that she has been having pain of her left side and then in the past 3 days her leg has pretty much been generally and she falls when this happens. She states that this is all a pretty new finding. She was found to have a low sodium. She states that she has never had this before. She states that she does drink water on a daily basis but it does not sound like she is drinking an excessive amount of fluids. 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 Surgical History She has a past surgical history that includes Other surgical history (02/14/2019); Other surgical history (02/14/2019); and Other surgical history. Social History She reports that she has quit smoking. Her smoking use included cigarettes. She has never used smokeless tobacco. She reports that she does not currently use alcohol. She reports that she does not use drugs. Family History Family History[1] Allergies Amlodipine and Penicillins Review of Systems A full 10 point review of systems was obtained is negative except HPI as above Physical Exam Physical Exam Constitutional: Appearance: Normal appearance. HENT: Head: Normocephalic and atraumatic. Right Ear: External ear normal. Left Ear: External ear normal. Nose: Nose normal. Mouth/Throat: Mouth: Mucous membranes are moist. Pharynx: Oropharynx is clear. Eyes: Extraocular Movements: Extraocular movements intact. Conjunctiva/sclera: Conjunctivae normal. Pupils: Pupils are equal, round, and reactive to light. Cardiovascular: Rate and Rhythm: Normal rate and regular rhythm. Pulmonary: Effort: Pulmonary effort is normal. Breath sounds: Normal breath sounds. Abdominal: General: Abdomen is flat. Palpations: Abdomen is soft. Skin: General: Skin is warm and dry. Neurological: General: No focal deficit present. Mental Status: She is alert and oriented to person, place, and time. Motor: Weakness present. Psychiatric: Mood and Affect: Mood normal. Behavior: Behavior normal. I&O 24HR Intake/Output Summary (Last 24 hours) at 09/22/2024 0900 Last data filed at 09/22/2024 0600 Gross per 24 hour Intake 5720.84 ml Output 725 ml Net 4995.84 ml Vitals 24HR Heart Rate: [75-89] Temp: [35.7 C (96.3 F)-36.8 C (98.2 F)] Resp: [14-23] BP: (133-168)/(62-104) Height: [152.4 cm (5')] Weight: [57.2 kg (126 lb)-59.4 kg (130 lb 15.3 oz)] SpO2: [94 %-98 %] Relevant Results Results reviewed Assessment & Plan Hyponatremia Hyponatremia: Euvolemic Left-sided leg pain and weakness Hypoalbuminemia with protein calorie malnutrition Slight leukocytosis Normocytic anemia Plan: Discontinue IV fluids Check TSH Will follow on urine osmole and urine sodium Placed on fluid restriction Thanks for the consult I spent 35 minutes in the professional and overall care of this patient. Gerson Ram DO [1] Family History Problem Relation Name Age of Onset Asthma Mother Diabetes Mother Osteoporosis Mother Lung cancer Mother Other (cardiac disorder) Father Hypertension Father Prostate cancer Father Other (Psychological disorder) Father documented in this encounter [facility] Work Phone: 09-22-2024 Nurse Note Pt resting calmly in bed, AAOx4. Pt denies new or worsening pain, but states that her left leg pain is a 7/10 and the left leg has been giving out several times over the past few days. Long discussion and education provided. [facility] Work Phone: 09-22-2024 Plan of care note The clinical goals for the shift include electrolytes WNL my EOS Problem: Pain - Adult Goal: Verbalizes/displays adequate comfort level or baseline comfort level Outcome: Progressing Problem: Safety - Adult Goal: Free from fall injury Outcome: Progressing Problem: Discharge Planning Goal: Discharge to home or other facility with appropriate resources Outcome: Progressing Problem: Chronic Conditions and Co-morbidities Goal: Patient's chronic conditions and co-morbidity symptoms are monitored and maintained or improved Outcome: Progressing Problem: Nutrition Goal: Nutrient intake appropriate for maintaining nutritional needs Outcome: Progressing Problem: Fall/Injury Goal: Not fall by end of shift Outcome: Progressing Goal: Verbalize understanding of personal risk factors for fall in the hospital Outcome: Progressing Problem: Pain Goal: Turns in bed with improved pain control throughout the shift Outcome: Progressing Goal: Performs ADL's with improved pain control throughout shift Outcome: Progressing Goal: Free from opioid side effects throughout the shift Outcome: Progressing Goal: Free from acute confusion related to pain meds throughout the shift Outcome: Progressing Problem: Skin Goal: Participates in plan/prevention/treatment measures Outcome: Progressing Flowsheets (Taken 09/22/2024 0355) Participates in plan/prevention/treatment measures: Elevate heels [facility] Work Phone: 09-21-2024 History and physical note History Of Present Illness Uzma Duran is a 78 y.o. female presenting with generalized weakness and also left low back pain radiating to her left lower extremity. She states that her left lower extremity has given out multiple times in the past 3 weeks. 4 out of 5 strength to the left lower extremity noted. She denies any signs of cauda equina. CT scan of the lumbar spine shows degenerative changes especially at L4-L5 and grade 1 degenerative anterolisthesis. Her sodium was noted to be 118. No history of hyponatremia. Chief Complaint Patient presents with Back Pain Fall Pt recently diagnosed with sciatic pain. On prednisone, meloxicam and gabopentin. Pt reports falls x 3 this week, states my leg just gives out on me. Denies injury. HPI obtained from pt. Notes from ED physician and nurse reviewed. Case discussed with attending ED physician. Past Medical History Medical History[1] Surgical History Surgical History[2] Recent Surgeries in Hospitalist No cases to display Surgical History[3] Social History Social History Substance and Sexual Activity Alcohol Use Yes Social History Substance and Sexual Activity Drug Use Never Social History Substance and Sexual Activity Sexual Activity Not on file Tobacco Use History[4] Food Insecurity: Not on file Financial Resource Strain: Not on file Intimate Partner Violence: Not on file Transportation Needs: Not on file Family History Family History[5] Allergies RX Allergies[6] Allergies[7] Last Recorded Vitals Visit Vitals BP 162/87 Pulse 84 Temp 36.8 C (98.2 F) (Oral) Resp 19 Visit Vitals BP 162/87 Pulse 84 Temp 36.8 C (98.2 F) (Oral) Resp 19 Ht (!) 1.524 m (5') Wt 57.2 kg (126 lb) SpO2 95% BMI 24.61 kg/m OB Status Hysterectomy Smoking Status Former BSA 1.56 m Relevant Results Results for orders placed or performed during the hospital encounter of 09/21/24 (from the past 24 hours) CBC and Auto Differential Result Value Ref Range WBC 12.0 (H) 4.4 - 11.3 x10*3/uL nRBC 0.0 0.0 - 0.0 /100 WBCs RBC 4.06 4.00 - 5.20 x10*6/uL Hemoglobin 13.0 12.0 - 16.0 g/dL Hematocrit 36.6 36.0 - 46.0 % MCV 90 80 - 100 fL MCH 32.0 26.0 - 34.0 pg MCHC 35.5 32.0 - 36.0 g/dL RDW 12.5 11.5 - 14.5 % Platelets 264 150 - 450 x10*3/uL Neutrophils % 82.3 40.0 - 80.0 % Immature Granulocytes %, Automated 0.9 0.0 - 0.9 % Lymphocytes % 9.2 13.0 - 44.0 % Monocytes % 7.2 2.0 - 10.0 % Eosinophils % 0.2 0.0 - 6.0 % Basophils % 0.2 0.0 - 2.0 % Neutrophils Absolute 9.89 (H) 1.60 - 5.50 x10*3/uL Immature Granulocytes Absolute, Automated 0.11 0.00 - 0.50 x10*3/uL Lymphocytes Absolute 1.11 0.80 - 3.00 x10*3/uL Monocytes Absolute 0.86 (H) 0.05 - 0.80 x10*3/uL Eosinophils Absolute 0.03 0.00 - 0.40 x10*3/uL Basophils Absolute 0.02 0.00 - 0.10 x10*3/uL Comprehensive Metabolic Panel Result Value Ref Range Glucose 109 (H) 74 - 99 mg/dL Sodium 118 (LL) 136 - 145 mmol/L Potassium 3.3 (L) 3.5 - 5.3 mmol/L Chloride 86 (L) 98 - 107 mmol/L Bicarbonate 25 21 - 32 mmol/L Anion Gap 10 10 - 20 mmol/L Urea Nitrogen 16 6 - 23 mg/dL Creatinine 0.80 0.50 - 1.05 mg/dL eGFR 76 >60 mL/min/1.73m*2 Calcium 8.7 8.6 - 10.3 mg/dL Albumin 3.7 3.4 - 5.0 g/dL Alkaline Phosphatase 61 33 - 136 U/L Total Protein 6.4 6.4 - 8.2 g/dL AST 14 9 - 39 U/L Bilirubin, Total 1.2 0.0 - 1.2 mg/dL ALT 18 7 - 45 U/L Magnesium Result Value Ref Range Magnesium 1.87 1.60 - 2.40 mg/dL aPTT Result Value Ref Range aPTT 21 (L) 26 - 36 seconds Protime-INR Result Value Ref Range Protime 10.7 9.8 - 12.4 seconds INR 1.0 0.9 - 1.1 Troponin I, High Sensitivity, Initial Result Value Ref Range Troponin I, High Sensitivity 7 0 - 13 ng/L Sars-CoV-2 PCR Result Value Ref Range Coronavirus 2019, PCR Not Detected Not Detected Troponin, High Sensitivity, 1 Hour Result Value Ref Range Troponin I, High Sensitivity 7 0 - 13 ng/L SST TOP Result Value Ref Range Extra Tube Hold for add-ons. Urinalysis with Reflex Culture and Microscopic Result Value Ref Range Color, Urine Colorless (N) Light-Yellow, Yellow, Dark-Yellow Appearance, Urine Clear Clear Specific [place], Urine 1.009 1.005 - 1.035 pH, Urine 6.5 5.0, 5.5, 6.0, 6.5, 7.0, 7.5, 8.0 Protein, Urine NEGATIVE NEGATIVE, 10 (TRACE), 20 (TRACE) mg/dL Glucose, Urine Normal Normal mg/dL Blood, Urine NEGATIVE NEGATIVE mg/dL Ketones, Urine NEGATIVE NEGATIVE mg/dL Bilirubin, Urine NEGATIVE NEGATIVE mg/dL Urobilinogen, Urine Normal Normal mg/dL Nitrite, Urine NEGATIVE NEGATIVE Leukocyte Esterase, Urine NEGATIVE NEGATIVE Imaging CT lumbar spine w IV contrast Result Date: 09/21/2024 Degenerative changes most notable at L4-L5. Grade 1 degenerative anterolisthesis. If concern for nerve root impingement or other radiculopathy symptoms, consider MRI. Vascular calcification. Distended urinary bladder. No acute fracture. MACRO: None Signed by: Igor Sharif 09/21/2024 6:53 PM Dictation workstation: [id number] CT head wo IV contrast Result Date: 09/21/2024 No evidence of acute cortical infarct or intracranial hemorrhage. Frontal lobe predominant volume loss. Bilateral mastoid opacification MACRO: None Signed by: Igor Sharif 09/21/2024 6:47 PM Dictation workstation: [id number] XR chest 1 view Result Date: 09/21/2024 1. No acute cardiopulmonary process. MACRO: None. Signed by: Dee Dee Durbin 09/21/2024 5:08 PM Dictation workstation: [id number] Cardiology, Vascular, and Other Imaging No other imaging results found for the past 2 days I personally reviewed and interpreted the above results, multiple of which contributed to my medical making decisions. 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 Obstructive sleep apnea (adult) (pediatric) 02/03/2022 Severe obstructive sleep apnea Other abnormal glucose 02/03/2022 Elevated glucose Other specified personal risk factors, not elsewhere classified 02/04/2020 10 year risk of MT or stroke 7.5% or greater Rectocele, female 05/31/2022 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 [2] Past Surgical History: Procedure Laterality Date OTHER SURGICAL HISTORY 02/14/2019 Hysterectomy OTHER SURGICAL HISTORY 02/14/2019 Colonoscopy OTHER SURGICAL HISTORY Uterine prolaps [3] Past Surgical History: Procedure Laterality Date OTHER SURGICAL HISTORY 02/14/2019 Hysterectomy OTHER SURGICAL HISTORY 02/14/2019 Colonoscopy OTHER SURGICAL HISTORY Uterine prolaps [4] Social History Tobacco Use Smoking Status Former Types: Cigarettes Smokeless Tobacco Never [5] Family History Problem Relation Name Age of Onset Asthma Mother Diabetes Mother Osteoporosis Mother Lung cancer Mother Other (cardiac disorder) Father Hypertension Father Prostate cancer Father Other (Psychological disorder) Father [6] Allergies Allergen Reactions Amlodipine Swelling Ankle swelling Penicillins Rash [7] Allergies Allergen Reactions Amlodipine Swelling Ankle swelling Penicillins Rash T [facility] Work Phone: 09-21-2024 History and physical note History Of Present Illness Uzma Duran is a 78 y.o. female presenting with generalized weakness and also left low back pain radiating to her left lower extremity. She states that her left lower extremity has given out multiple times in the past 3 weeks. 4 out of 5 strength to the left lower extremity noted. She denies any signs of cauda equina. CT scan of the lumbar spine shows degenerative changes especially at L4-L5 and grade 1 degenerative anterolisthesis. Her sodium was noted to be 118. No history of hyponatremia. Chief Complaint Patient presents with Back Pain Fall Pt recently diagnosed with sciatic pain. On prednisone, meloxicam and gabopentin. Pt reports falls x 3 this week, states my leg just gives out on me. Denies injury. HPI obtained from pt. Notes from ED physician and nurse reviewed. Case discussed with attending ED physician. Past Medical History Medical History[1] Surgical History Surgical History[2] Recent Surgeries in Hospitalist No cases to display Surgical History[3] Social History Social History Substance and Sexual Activity Alcohol Use Yes Social History Substance and Sexual Activity Drug Use Never Social History Substance and Sexual Activity Sexual Activity Not on file Tobacco Use History[4] Food Insecurity: Not on file Financial Resource Strain: Not on file Intimate Partner Violence: Not on file Transportation Needs: Not on file Family History Family History[5] Allergies RX Allergies[6] Allergies[7] Last Recorded Vitals Visit Vitals BP 162/87 Pulse 84 Temp 36.8 C (98.2 F) (Oral) Resp 19 Visit Vitals BP 162/87 Pulse 84 Temp 36.8 C (98.2 F) (Oral) Resp 19 Ht (!) 1.524 m (5') Wt 57.2 kg (126 lb) SpO2 95% BMI 24.61 kg/m OB Status Hysterectomy Smoking Status Former BSA 1.56 m Relevant Results Results for orders placed or performed during the hospital encounter of 09/21/24 (from the past 24 hours) CBC and Auto Differential Result Value Ref Range WBC 12.0 (H) 4.4 - 11.3 x10*3/uL nRBC 0.0 0.0 - 0.0 /100 WBCs RBC 4.06 4.00 - 5.20 x10*6/uL Hemoglobin 13.0 12.0 - 16.0 g/dL Hematocrit 36.6 36.0 - 46.0 % MCV 90 80 - 100 fL MCH 32.0 26.0 - 34.0 pg MCHC 35.5 32.0 - 36.0 g/dL RDW 12.5 11.5 - 14.5 % Platelets 264 150 - 450 x10*3/uL Neutrophils % 82.3 40.0 - 80.0 % Immature Granulocytes %, Automated 0.9 0.0 - 0.9 % Lymphocytes % 9.2 13.0 - 44.0 % Monocytes % 7.2 2.0 - 10.0 % Eosinophils % 0.2 0.0 - 6.0 % Basophils % 0.2 0.0 - 2.0 % Neutrophils Absolute 9.89 (H) 1.60 - 5.50 x10*3/uL Immature Granulocytes Absolute, Automated 0.11 0.00 - 0.50 x10*3/uL Lymphocytes Absolute 1.11 0.80 - 3.00 x10*3/uL Monocytes Absolute 0.86 (H) 0.05 - 0.80 x10*3/uL Eosinophils Absolute 0.03 0.00 - 0.40 x10*3/uL Basophils Absolute 0.02 0.00 - 0.10 x10*3/uL Comprehensive Metabolic Panel Result Value Ref Range Glucose 109 (H) 74 - 99 mg/dL Sodium 118 (LL) 136 - 145 mmol/L Potassium 3.3 (L) 3.5 - 5.3 mmol/L Chloride 86 (L) 98 - 107 mmol/L Bicarbonate 25 21 - 32 mmol/L Anion Gap 10 10 - 20 mmol/L Urea Nitrogen 16 6 - 23 mg/dL Creatinine 0.80 0.50 - 1.05 mg/dL eGFR 76 >60 mL/min/1.73m*2 Calcium 8.7 8.6 - 10.3 mg/dL Albumin 3.7 3.4 - 5.0 g/dL Alkaline Phosphatase 61 33 - 136 U/L Total Protein 6.4 6.4 - 8.2 g/dL AST 14 9 - 39 U/L Bilirubin, Total 1.2 0.0 - 1.2 mg/dL ALT 18 7 - 45 U/L Magnesium Result Value Ref Range Magnesium 1.87 1.60 - 2.40 mg/dL aPTT Result Value Ref Range aPTT 21 (L) 26 - 36 seconds Protime-INR Result Value Ref Range Protime 10.7 9.8 - 12.4 seconds INR 1.0 0.9 - 1.1 Troponin I, High Sensitivity, Initial Result Value Ref Range Troponin I, High Sensitivity 7 0 - 13 ng/L Sars-CoV-2 PCR Result Value Ref Range Coronavirus 2019, PCR Not Detected Not Detected Troponin, High Sensitivity, 1 Hour Result Value Ref Range Troponin I, High Sensitivity 7 0 - 13 ng/L SST TOP Result Value Ref Range Extra Tube Hold for add-ons. Urinalysis with Reflex Culture and Microscopic Result Value Ref Range Color, Urine Colorless (N) Light-Yellow, Yellow, Dark-Yellow Appearance, Urine Clear Clear Specific [place], Urine 1.009 1.005 - 1.035 pH, Urine 6.5 5.0, 5.5, 6.0, 6.5, 7.0, 7.5, 8.0 Protein, Urine NEGATIVE NEGATIVE, 10 (TRACE), 20 (TRACE) mg/dL Glucose, Urine Normal Normal mg/dL Blood, Urine NEGATIVE NEGATIVE mg/dL Ketones, Urine NEGATIVE NEGATIVE mg/dL Bilirubin, Urine NEGATIVE NEGATIVE mg/dL Urobilinogen, Urine Normal Normal mg/dL Nitrite, Urine NEGATIVE NEGATIVE Leukocyte Esterase, Urine NEGATIVE NEGATIVE Imaging CT lumbar spine w IV contrast Result Date: 09/21/2024 Degenerative changes most notable at L4-L5. Grade 1 degenerative anterolisthesis. If concern for nerve root impingement or other radiculopathy symptoms, consider MRI. Vascular calcification. Distended urinary bladder. No acute fracture. MACRO: None Signed by: Igor Sharif 09/21/2024 6:53 PM Dictation workstation: [id number] CT head wo IV contrast Result Date: 09/21/2024 No evidence of acute cortical infarct or intracranial hemorrhage. Frontal lobe predominant volume loss. Bilateral mastoid opacification MACRO: None Signed by: Igor Sharif 09/21/2024 6:47 PM Dictation workstation: [id number] XR chest 1 view Result Date: 09/21/2024 1. No acute cardiopulmonary process. MACRO: None. Signed by: Dee Dee Durbin 09/21/2024 5:08 PM Dictation workstation: [id number] Cardiology, Vascular, and Other Imaging No other imaging results found for the past 2 days I personally reviewed and interpreted the above results, multiple of which contributed to my medical making decisions. 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 Obstructive sleep apnea (adult) (pediatric) 02/03/2022 Severe obstructive sleep apnea Other abnormal glucose 02/03/2022 Elevated glucose Other specified personal risk factors, not elsewhere classified 02/04/2020 10 year risk of MT or stroke 7.5% or greater Rectocele, female 05/31/2022 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 [2] Past Surgical History: Procedure Laterality Date OTHER SURGICAL HISTORY 02/14/2019 Hysterectomy OTHER SURGICAL HISTORY 02/14/2019 Colonoscopy OTHER SURGICAL HISTORY Uterine prolaps [3] Past Surgical History: Procedure Laterality Date OTHER SURGICAL HISTORY 02/14/2019 Hysterectomy OTHER SURGICAL HISTORY 02/14/2019 Colonoscopy OTHER SURGICAL HISTORY Uterine prolaps [4] Social History Tobacco Use Smoking Status Former Types: Cigarettes Smokeless Tobacco Never [5] Family History Problem Relation Name Age of Onset Asthma Mother Diabetes Mother Osteoporosis Mother Lung cancer Mother Other (cardiac disorder) Father Hypertension Father Prostate cancer Father Other (Psychological disorder) Father [6] Allergies Allergen Reactions Amlodipine Swelling Ankle swelling Penicillins Rash [7] Allergies Allergen Reactions Amlodipine Swelling Ankle swelling Penicillins Rash documented in this encounter [facility] Work Phone: 09-21-2024 Physician Emergency department Note Associated Order(s): ECG 12 Lead Patient is a 78-year-old female who presents to the emergency room with a concern for low back pain radiating to her left lower leg. She states that she had symptoms that began approximately 2 weeks ago. She states that she was seen at urgent care and told that she had sciatica. She was told to take Tylenol. She has been taking Tylenol with minimal relief. She recently saw her family doctor who prescribed her prednisone for her sciatica. She also prescribed her gabapentin which she took the other night and she is concerned that this may be contributing to her weakness. She states that she is having trouble sleeping at night. She denies any bowel or bladder incontinence or retention. No saddle anesthesia. She states that she has fallen a few times as her left leg is giving out. Review of Systems Constitutional: Negative for chills and fever. HENT: Negative for ear pain and sore throat. Eyes: Negative for pain and visual disturbance. Respiratory: Negative for cough and shortness of breath. Cardiovascular: Negative for chest pain and palpitations. Gastrointestinal: Negative for abdominal pain, diarrhea, nausea and vomiting. Genitourinary: Negative for dysuria and hematuria. Musculoskeletal: Negative for arthralgias and back pain. Skin: Negative for color change and rash. Neurological: Negative for seizures and syncope. All other systems reviewed and are negative. Physical Exam Vitals and nursing note reviewed. Constitutional: General: She is not in acute distress. Appearance: Normal appearance. She is well-developed. HENT: Head: Normocephalic and atraumatic. Nose: No congestion or rhinorrhea. Mouth/Throat: Pharynx: No oropharyngeal exudate or posterior oropharyngeal erythema. Eyes: Extraocular Movements: Extraocular movements intact. Conjunctiva/sclera: Conjunctivae normal. Pupils: Pupils are equal, round, and reactive to light. Cardiovascular: Rate and Rhythm: Normal rate and regular rhythm. Heart sounds: No murmur heard. Pulmonary: Effort: Pulmonary effort is normal. No respiratory distress. Breath sounds: Normal breath sounds. No stridor. No wheezing, rhonchi or rales. Abdominal: General: There is no distension. Palpations: Abdomen is soft. There is no mass. Tenderness: There is no abdominal tenderness. There is no guarding or rebound. Hernia: No hernia is present. Musculoskeletal: General: No swelling or deformity. Normal range of motion. Cervical back: Normal range of motion and neck supple. No rigidity. Right lower leg: No edema. Skin: General: Skin is warm and dry. Capillary Refill: Capillary refill takes less than 2 seconds. Neurological: General: No focal deficit present. Mental Status: She is alert. GCS: GCS eye subscore is 4. GCS verbal subscore is 5. GCS motor subscore is 6. Cranial Nerves: No cranial nerve deficit or facial asymmetry. Sensory: No sensory deficit. Motor: Weakness (4/5 strength to LLE, 5/5 to RLE) present. Coordination: Coordination is intact. Cdtoid-Whsr-Nfqugl Test normal. Psychiatric: Mood and Affect: Mood normal. Labs Reviewed CBC WITH AUTO DIFFERENTIAL - Abnormal Result Value WBC 12.0 (*) nRBC 0.0 RBC 4.06 Hemoglobin 13.0 Hematocrit 36.6 MCV 90 MCH 32.0 MCHC 35.5 RDW 12.5 Platelets 264 Neutrophils % 82.3 Immature Granulocytes %, Automated 0.9 Lymphocytes % 9.2 Monocytes % 7.2 Eosinophils % 0.2 Basophils % 0.2 Neutrophils Absolute 9.89 (*) Immature Granulocytes Absolute, Automated 0.11 Lymphocytes Absolute 1.11 Monocytes Absolute 0.86 (*) Eosinophils Absolute 0.03 Basophils Absolute 0.02 COMPREHENSIVE METABOLIC PANEL - Abnormal Glucose 109 (*) Sodium 118 (*) Potassium 3.3 (*) Chloride 86 (*) Bicarbonate 25 Anion Gap 10 Urea Nitrogen 16 Creatinine 0.80 eGFR 76 Calcium 8.7 Albumin 3.7 Alkaline Phosphatase 61 Total Protein 6.4 AST 14 Bilirubin, Total 1.2 ALT 18 APTT - Abnormal aPTT 21 (*) Narrative: The APTT is no longer used for monitoring Unfractionated Heparin Therapy. For monitoring Heparin Therapy, use the Heparin Assay. URINALYSIS WITH REFLEX CULTURE AND MICROSCOPIC - Abnormal Color, Urine Colorless (*) Appearance, Urine Clear Specific [place], Urine 1.009 pH, Urine 6.5 Protein, Urine NEGATIVE Glucose, Urine Normal Blood, Urine NEGATIVE Ketones, Urine NEGATIVE Bilirubin, Urine NEGATIVE Urobilinogen, Urine Normal Nitrite, Urine NEGATIVE Leukocyte Esterase, Urine NEGATIVE MAGNESIUM - Normal Magnesium 1.87 PROTIME-INR - Normal Protime 10.7 INR 1.0 SARS-COV-2 PCR - Normal Coronavirus 2018, PCR Not Detected Narrative: This assay is an FDA-cleared, in vitro diagnostic nucleic acid amplification test for the qualitative detection and differentiation of SARS CoV-2 from nasopharyngeal specimens collected from individuals with signs and symptoms of respiratory tract infections, and has been validated for use at [facility]. Negative results do not preclude COVID-19 infections and should not be used as the sole basis for diagnosis, treatment, or other management decisions. Testing for SARS CoV-2 is recommended only for patients who meet current clinical and/or epidemiological criteria defined by federal, state, or local public health directives. SERIAL TROPONIN-INITIAL - Normal Troponin I, High Sensitivity 7 Narrative: Less than 99th percentile of normal range cutoff- Female and children under 18 years old <14 ng/L; Male <21 ng/L: Negative Repeat testing should be performed if clinically indicated. Female and children under 18 years old 14-50 ng/L; Male 21-50 ng/L: Consistent with possible cardiac damage and possible increased clinical risk. Serial measurements may help to assess extent of myocardial damage. >50 ng/L: Consistent with cardiac damage, increased clinical risk and myocardial infarction. Serial measurements may help assess extent of myocardial damage. NOTE: Children less than 1 year old may have higher baseline troponin levels and results should be interpreted in conjunction with the overall clinical context. NOTE: Troponin I testing is performed using a different testing methodology at [facility] than at other [facility]. Direct result comparisons should only be made within the same method. SERIAL TROPONIN, 1 HOUR - Normal Troponin I, High Sensitivity 7 Narrative: Less than 99th percentile of normal range cutoff- Female and children under 18 years old <14 ng/L; Male <21 ng/L: Negative Repeat testing should be performed if clinically indicated. Female and children under 18 years old 14-50 ng/L; Male 21-50 ng/L: Consistent with possible cardiac damage and possible increased clinical risk. Serial measurements may help to assess extent of myocardial damage. >50 ng/L: Consistent with cardiac damage, increased clinical risk and myocardial infarction. Serial measurements may help assess extent of myocardial damage. NOTE: Children less than 1 year old may have higher baseline troponin levels and results should be interpreted in conjunction with the overall clinical context. NOTE: Troponin I testing is performed using a different testing methodology at [facility] than at other [facility]. Direct result comparisons should only be made within the same method. TROPONIN SERIES- (INITIAL, 1 HR) Narrative: The following orders were created for panel order Troponin I Series, High Sensitivity (0, 1 HR). Procedure Abnormality Status --------- ------ Troponin I, High Sensiti...[[id number]] Normal Final result Troponin, High Sensitivi...[[id number]] Normal Final result Please view results for these tests on the individual orders. URINALYSIS WITH REFLEX CULTURE AND MICROSCOPIC Narrative: The following orders were created for panel order Urinalysis with Reflex Culture and Microscopic. Procedure Abnormality Status --------- ------ Urinalysis with Reflex C...[[id number]] Abnormal Final result Extra Urine Hughes Tube[[id number]] In process Please view results for these tests on the individual orders. EXTRA URINE HUGHES TUBE CT head wo IV contrast Final Result No evidence of acute cortical infarct or intracranial hemorrhage. Frontal lobe predominant volume loss. Bilateral mastoid opacification MACRO: None Signed by: Igor Sharif 09/21/2024 6:47 PM Dictation workstation: [id number] CT lumbar spine w IV contrast Final Result Degenerative changes most notable at L4-L5. Grade 1 degenerative anterolisthesis. If concern for nerve root impingement or other radiculopathy symptoms, consider MRI. Vascular calcification. Distended urinary bladder. No acute fracture. MACRO: None Signed by: Igor Sharif 09/21/2024 6:53 PM Dictation workstation: [id number] XR chest 1 view Final Result 1. No acute cardiopulmonary process. MACRO: None. Signed by: Dee Dee Durbin 09/21/2024 5:08 PM Dictation workstation: [id number] ECG 12 Lead Performed by: Blanca Rojo PA-C Authorized by: Blanca Rojo PA-C ECG interpreted by ED Physician in the absence of a water system operator: yes Comments: EKG shows normal sinus rhythm with a rate of [address] elevation. MA interval is 158 ms and QRS duration is 76 ms. EKG interpretation per myself, Blanca Rojo Medical Decision Making Patient presented today for generalized weakness and also left low back pain radiating to her left lower extremity. She states that her left lower extremity has given out multiple times in the past 3 weeks. 4 out of 5 strength to the left lower extremity noted. She denies any signs of cauda equina. CT scan of the lumbar spine shows degenerative changes especially at L4-L5 and grade 1 degenerative anterolisthesis. At this time I do not feel that an emergent MRI is indicated, also reported feeling generally weak. Her sodium was noted to be 118. No history of hyponatremia. DDX includes but not limited to: generalized weakness, electrolyte abnormality, UTI, Pneumonia, ACS, cauda eqina Amount and/or Complexity of Data Reviewed Labs: ordered. Decision-making details documented in ED Course. Radiology: ordered. Decision-making details documented in ED Course. ECG/medicine tests: ordered and independent interpretation performed. Decision-making details documented in ED Course. Diagnoses as of 09/21/241932 Hyponatremia Generalized weakness Blanca Rojo PA-C 09/21/241932 Cosigned by Clif Caceres DO at 09/22/2024 8:24 AM EDT Associated attestation - Clif Caceres DO - 09/22/2024 8:24 AM EDT This patient was seen by the advanced practice provider. I have personally performed a substantive portion of the encounter. I have seen and examined the patient; agree with the workup, evaluation, MDM, management and diagnosis. The care plan has been discussed. I personally saw the patient and made/approved the management plan and take responsibility for the patient management. History: 78-year-old female presents with concern for right lower extremity pain and weakness. Began 2 weeks ago. Initially diagnosed with sciatica. Patient also states that she has been very fatigued and weak. Denies any chest pain or shortness of breath. Denies any fever, chills, saddle anesthesia, loss of bowel or bladder, fall or trauma. Exam: Patient appears well and nontoxic. Vital signs within normal limits. No focal neurologic deficit. Patient does have weakness on exam of her left lower extremity. Sensation grossly intact to the bilateral lower extremity. MDM: Patient found to have a sodium of 118. No history of chronic hyponatremia. CT of the lumbar spine shows degenerative changes without acute impingement. No emergent MRI necessary at this time but may be performed as an outpatient or later during her visit. Patient will be admitted to manage her hyponatremia. Stable at time of admission. Diagnosis: 1. Weakness 2. Hyponatremia 3. Left lower extremity pain and weakness [facility] Work Phone: 09-21-2024 Emergency department Note Associated Order(s): ECG 12 Lead Patient is a 78-year-old female who presents to the emergency room with a concern for low back pain radiating to her left lower leg. She states that she had symptoms that began approximately 2 weeks ago. She states that she was seen at urgent care and told that she had sciatica. She was told to take Tylenol. She has been taking Tylenol with minimal relief. She recently saw her family doctor who prescribed her prednisone for her sciatica. She also prescribed her gabapentin which she took the other night and she is concerned that this may be contributing to her weakness. She states that she is having trouble sleeping at night. She denies any bowel or bladder incontinence or retention. No saddle anesthesia. She states that she has fallen a few times as her left leg is giving out. Review of Systems Constitutional: Negative for chills and fever. HENT: Negative for ear pain and sore throat. Eyes: Negative for pain and visual disturbance. Respiratory: Negative for cough and shortness of breath. Cardiovascular: Negative for chest pain and palpitations. Gastrointestinal: Negative for abdominal pain, diarrhea, nausea and vomiting. Genitourinary: Negative for dysuria and hematuria. Musculoskeletal: Negative for arthralgias and back pain. Skin: Negative for color change and rash. Neurological: Negative for seizures and syncope. All other systems reviewed and are negative. Physical Exam Vitals and nursing note reviewed. Constitutional: General: She is not in acute distress. Appearance: Normal appearance. She is well-developed. HENT: Head: Normocephalic and atraumatic. Nose: No congestion or rhinorrhea. Mouth/Throat: Pharynx: No oropharyngeal exudate or posterior oropharyngeal erythema. Eyes: Extraocular Movements: Extraocular movements intact. Conjunctiva/sclera: Conjunctivae normal. Pupils: Pupils are equal, round, and reactive to light. Cardiovascular: Rate and Rhythm: Normal rate and regular rhythm. Heart sounds: No murmur heard. Pulmonary: Effort: Pulmonary effort is normal. No respiratory distress. Breath sounds: Normal breath sounds. No stridor. No wheezing, rhonchi or rales. Abdominal: General: There is no distension. Palpations: Abdomen is soft. There is no mass. Tenderness: There is no abdominal tenderness. There is no guarding or rebound. Hernia: No hernia is present. Musculoskeletal: General: No swelling or deformity. Normal range of motion. Cervical back: Normal range of motion and neck supple. No rigidity. Right lower leg: No edema. Skin: General: Skin is warm and dry. Capillary Refill: Capillary refill takes less than 2 seconds. Neurological: General: No focal deficit present. Mental Status: She is alert. GCS: GCS eye subscore is 4. GCS verbal subscore is 5. GCS motor subscore is 6. Cranial Nerves: No cranial nerve deficit or facial asymmetry. Sensory: No sensory deficit. Motor: Weakness (4/5 strength to LLE, 5/5 to RLE) present. Coordination: Coordination is intact. Aiujkq-Uakj-Revcen Test normal. Psychiatric: Mood and Affect: Mood normal. Labs Reviewed CBC WITH AUTO DIFFERENTIAL - Abnormal Result Value WBC 12.0 (*) nRBC 0.0 RBC 4.06 Hemoglobin 13.0 Hematocrit 36.6 MCV 90 MCH 32.0 MCHC 35.5 RDW 12.5 Platelets 264 Neutrophils % 82.3 Immature Granulocytes %, Automated 0.9 Lymphocytes % 9.2 Monocytes % 7.2 Eosinophils % 0.2 Basophils % 0.2 Neutrophils Absolute 9.89 (*) Immature Granulocytes Absolute, Automated 0.11 Lymphocytes Absolute 1.11 Monocytes Absolute 0.86 (*) Eosinophils Absolute 0.03 Basophils Absolute 0.02 COMPREHENSIVE METABOLIC PANEL - Abnormal Glucose 109 (*) Sodium 118 (*) Potassium 3.3 (*) Chloride 86 (*) Bicarbonate 25 Anion Gap 10 Urea Nitrogen 16 Creatinine 0.80 eGFR 76 Calcium 8.7 Albumin 3.7 Alkaline Phosphatase 61 Total Protein 6.4 AST 14 Bilirubin, Total 1.2 ALT 18 APTT - Abnormal aPTT 21 (*) Narrative: The APTT is no longer used for monitoring Unfractionated Heparin Therapy. For monitoring Heparin Therapy, use the Heparin Assay. URINALYSIS WITH REFLEX CULTURE AND MICROSCOPIC - Abnormal Color, Urine Colorless (*) Appearance, Urine Clear Specific [place], Urine 1.009 pH, Urine 6.5 Protein, Urine NEGATIVE Glucose, Urine Normal Blood, Urine NEGATIVE Ketones, Urine NEGATIVE Bilirubin, Urine NEGATIVE Urobilinogen, Urine Normal Nitrite, Urine NEGATIVE Leukocyte Esterase, Urine NEGATIVE MAGNESIUM - Normal Magnesium 1.87 PROTIME-INR - Normal Protime 10.7 INR 1.0 SARS-COV-2 PCR - Normal Coronavirus 2019, PCR Not Detected Narrative: This assay is an FDA-cleared, in vitro diagnostic nucleic acid amplification test for the qualitative detection and differentiation of SARS CoV-2 from nasopharyngeal specimens collected from individuals with signs and symptoms of respiratory tract infections, and has been validated for use at [facility]. Negative results do not preclude COVID-19 infections and should not be used as the sole basis for diagnosis, treatment, or other management decisions. Testing for SARS CoV-2 is recommended only for patients who meet current clinical and/or epidemiological criteria defined by federal, state, or local public health directives. SERIAL TROPONIN-INITIAL - Normal Troponin I, High Sensitivity 7 Narrative: Less than 99th percentile of normal range cutoff- Female and children under 18 years old <14 ng/L; Male <21 ng/L: Negative Repeat testing should be performed if clinically indicated. Female and children under 18 years old 14-50 ng/L; Male 21-50 ng/L: Consistent with possible cardiac damage and possible increased clinical risk. Serial measurements may help to assess extent of myocardial damage. >50 ng/L: Consistent with cardiac damage, increased clinical risk and myocardial infarction. Serial measurements may help assess extent of myocardial damage. NOTE: Children less than 1 year old may have higher baseline troponin levels and results should be interpreted in conjunction with the overall clinical context. NOTE: Troponin I testing is performed using a different testing methodology at [facility] than at other [facility]. Direct result comparisons should only be made within the same method. SERIAL TROPONIN, 1 HOUR - Normal Troponin I, High Sensitivity 7 Narrative: Less than 99th percentile of normal range cutoff- Female and children under 18 years old <14 ng/L; Male <21 ng/L: Negative Repeat testing should be performed if clinically indicated. Female and children under 18 years old 14-50 ng/L; Male 21-50 ng/L: Consistent with possible cardiac damage and possible increased clinical risk. Serial measurements may help to assess extent of myocardial damage. >50 ng/L: Consistent with cardiac damage, increased clinical risk and myocardial infarction. Serial measurements may help assess extent of myocardial damage. NOTE: Children less than 1 year old may have higher baseline troponin levels and results should be interpreted in conjunction with the overall clinical context. NOTE: Troponin I testing is performed using a different testing methodology at [facility] than at [facility]. Direct result comparisons should only be made within the same method. TROPONIN SERIES- (INITIAL, 1 HR) Narrative: The following orders were created for panel order Troponin I Series, High Sensitivity (0, 1 HR). Procedure Abnormality Status --------- ------ Troponin I, High Sensiti...[[id number]] Normal Final result Troponin, High Sensitivi...[[id number]] Normal Final result Please view results for these tests on the individual orders. URINALYSIS WITH REFLEX CULTURE AND MICROSCOPIC Narrative: The following orders were created for panel order Urinalysis with Reflex Culture and Microscopic. Procedure Abnormality Status --------- ------ Urinalysis with Reflex C...[[id number]] Abnormal Final result Extra Urine Hughes Tube[[id number]] In process Please view results for these tests on the individual orders. EXTRA URINE HUGHES TUBE CT head wo IV contrast Final Result No evidence of acute cortical infarct or intracranial hemorrhage. Frontal lobe predominant volume loss. Bilateral mastoid opacification MACRO: None Signed by: Igor Sharif 09/21/2024 6:47 PM Dictation workstation: [id number] CT lumbar spine w IV contrast Final Result Degenerative changes most notable at L4-L5. Grade 1 degenerative anterolisthesis. If concern for nerve root impingement or other radiculopathy symptoms, consider MRI. Vascular calcification. Distended urinary bladder. No acute fracture. MACRO: None Signed by: Igor Sharif 09/21/2024 6:53 PM Dictation workstation: [id number] XR chest 1 view Final Result 1. No acute cardiopulmonary process. MACRO: None. Signed by: Dee Dee Durbin 09/21/2024 5:08 PM Dictation workstation: [id number] ECG 12 Lead Performed by: Blanca Rojo PA-C Authorized by: Blanca Rojo PA-C ECG interpreted by ED Physician in the absence of a water system operator: yes Comments: EKG shows normal sinus rhythm with a rate of [address] elevation. MA interval is 158 ms and QRS duration is 76 ms. EKG interpretation per myself, Blanca Rojo Medical Decision Making Patient presented today for generalized weakness and also left low back pain radiating to her left lower extremity. She states that her left lower extremity has given out multiple times in the past 3 weeks. 4 out of 5 strength to the left lower extremity noted. She denies any signs of cauda equina. CT scan of the lumbar spine shows degenerative changes especially at L4-L5 and grade 1 degenerative anterolisthesis. At this time I do not feel that an emergent MRI is indicated, also reported feeling generally weak. Her sodium was noted to be 118. No history of hyponatremia. DDX includes but not limited to: generalized weakness, electrolyte abnormality, UTI, Pneumonia, ACS, cauda eqina Amount and/or Complexity of Data Reviewed Labs: ordered. Decision-making details documented in ED Course. Radiology: ordered. Decision-making details documented in ED Course. ECG/medicine tests: ordered and independent interpretation performed. Decision-making details documented in ED Course. Diagnoses as of 09/21/241932 Hyponatremia Generalized weakness Blanca Rojo PA-C 09/21/241932 Cosigned by Clif Caceres DO at 09/22/2024 8:24 AM EDT Associated attestation - Clif Caceres DO - 09/22/2024 8:24 AM EDT This patient was seen by the advanced practice provider. I have personally performed a substantive portion of the encounter. I have seen and examined the patient; agree with the workup, evaluation, MDM, management and diagnosis. The care plan has been discussed. I personally saw the patient and made/approved the management plan and take responsibility for the patient management. History: 78-year-old female presents with concern for right lower extremity pain and weakness. Began 2 weeks ago. Initially diagnosed with sciatica. Patient also states that she has been very fatigued and weak. Denies any chest pain or shortness of breath. Denies any fever, chills, saddle anesthesia, loss of bowel or bladder, fall or trauma. Exam: Patient appears well and nontoxic. Vital signs within normal limits. No focal neurologic deficit. Patient does have weakness on exam of her left lower extremity. Sensation grossly intact to the bilateral lower extremity. MDM: Patient found to have a sodium of 118. No history of chronic hyponatremia. CT of the lumbar spine shows degenerative changes without acute impingement. No emergent MRI necessary at this time but may be performed as an outpatient or later during her visit. Patient will be admitted to manage her hyponatremia. Stable at time of admission. Diagnosis: 1. Weakness 2. Hyponatremia 3. Left lower extremity pain and weakness documented in this encounter [facility] Work Phone: 09-19-2024 History of Present illness Narrative C/O sciatica pain getting worse Subjective Uzma Duran is a 78 y.o. female who presents for Sciatica. HPI Follow up left sciatica. Since last seen having pain still in left buttock down outside/front of leg leg to foot. Not constant. Tylenol helps. Prednisone helped. Last week shooting pain at night. No new loss of bowel or bladder control, no numbness/tingling down leg or in groin. On prednisone taper, has one dose left. Has had insomnia and facial flushing. Robaxin did not help. Right posterior shoulder pain, radiates down right arm, into hand. Hand feels asleep, started 3-4 days ago. Just had two 9 hour car trips, drove home yesterday. All five fingers,maybe not thumb. Positional Review of Systems All other systems reviewed and are negative. . Allergies[1] Medications Ordered Prior to Encounter[2] Problem List[3] Objective Visit Vitals BP 126/70 (BP Location: Left arm, Patient Position: Sitting) Pulse 80 Physical Exam Vitals reviewed. HENT: Head: Normocephalic. Neck: Comments: No midline tenderness Musculoskeletal: Comments: Upper extremities neurovascularly intact, negative Tinels, no thenar or hypothenar atrophy, strength symmetric Lower extremity strength symmetric. Neurological: Mental Status: She is alert. Assessment/Plan Problem List Items Addressed This Visit None Visit Diagnoses Lumbar radiculopathy - Primary Relevant Medications meloxicam (Mobic) 15 mg tablet Other Relevant Orders XR lumbar spine 2-3 views Referral to Physical Therapy Cervical radiculopathy Relevant Medications meloxicam (Mobic) 15 mg tablet Other Relevant Orders XR cervical spine 2-3 views Referral to Physical Therapy Complete prednisone, side effects discussed , continue tylenol, can start meloxicam after prednisone complete, call concerns. Discussed option of narcotics for pain, she wants to hold on that for now which I think is best if we can avoid. Cyndi Horn MD [1] Allergies Allergen Reactions Amlodipine Swelling Ankle swelling Penicillins Rash [2] Current Outpatient Medications on File Prior to Visit Medication Sig Dispense Refill ascorbic acid/collagen hydr (COLLAGEN SKIN RENEWAL ORAL) Take by mouth. aspirin 81 mg EC tablet Take 1 tablet (81 mg) by mouth once daily. atorvastatin (Lipitor) 40 mg tablet Take 0.5 tablets (20 mg) by mouth once daily. cyanocobalamin, vitamin B-12, (VITAMIN B-12 ORAL) Take by mouth. docosahexaenoic acid/epa (FISH OIL ORAL) 1,000mg. 1 capsule twice daily L. acidophilus/Bifid. animalis 32 billion cell capsule Take by mouth. losartan (Cozaar) 50 mg tablet Take 1 tablet (50 mg) by mouth once daily. 30 tablet 5 magnesium 200 mg tablet Take by mouth. methocarbamol (Robaxin) 500 mg tablet Take 1 tablet (500 mg) by mouth as needed at bedtime for muscle spasms for up to 10 days. 10 tablet 0 predniSONE (Deltasone) 10 mg tablet 4 tabs daily for 3 days, 3 tabs daily for 3 days, 2 tabs daily for 3 days, 1 tab daily for 3 days, then discontinue 30 tablet 0 jclmkge-qzyh-knoah-oreg-capryl 100 mg-150 mg- 50 mg-150 mg capsule Take by mouth. No current facility-administered medications on file prior to visit. [3] Patient Active Problem List Diagnosis Elevated glucose Hyperlipidemia Multiple thyroid nodules Osteoporosis Severe obstructive sleep apnea Tubular adenoma of colon Hypertension Agatston CAC score, >400 documented in this encounter [facility] Work Phone: 09-10-2024 Evaluation + Plan note Associated Problem(s): Hypertension Orders: losartan (Cozaar) 50 mg tablet; Take 1 tablet (50 mg) by mouth once daily. [facility] Work Phone: 09-10-2024 Evaluation + Plan note Associated Problem(s): Hyperlipidemia Orders: atorvastatin (Lipitor) 40 mg tablet; Take 0.5 tablets (20 mg) by mouth once daily. [facility] Work Phone: 09-10-2024 History of Present illness Narrative Left back leg pain; went to urgent care on 09/08/24 Images from the original note were not included. Subjective Reason for Visit: Uzma Duran is an 78 y.o. female here for a Medicare Wellness visit. Past Medical, Surgical, and Family History reviewed and updated in chart. Reviewed all medications by prescribing practitioner or clinical pharmacist (such as prescriptions, OTCs, herbal therapies and supplements) and documented in the medical record. HPI Started Monday morning with pain in low back, radiating down left leg. Went to Urgent care Monday night. She is on ibuprofen. Difficulty sleeping last two nights due to pain. Doing the exercises they gave her, and that does help. Pain in left buttock, left thigh and calf. No new loss of bowel or bladder control, no numbness/tingling in leg or groin. Concerned as she leaves for vacation with two trips planned. Also having some pain in right posterior shoulder. HTN, needs refill, bp was elevated at urgent care Patient Care Team: Cyndi Horn MD as PCP - General (Family Medicine) Cyndi Horn MD as PCP - [employer] PCP Review of Systems All other systems reviewed and are negative. Objective Vitals: BP 134/84 (BP Location: Left arm, Patient Position: Sitting) Pulse 88 Ht (!) 1.524 m (5') Wt 58.5 kg (129 lb) BMI 25.19 kg/m Physical Exam Vitals reviewed. HENT: Head: Normocephalic. Pulmonary: Effort: Pulmonary effort is normal. No respiratory distress. Musculoskeletal: Arms: Comments: Right posterior shoulder muscles tight with mild spasm Lower extremities strength symmetric, no calf swelling or tenderness, good distal pulses, symmetric, no edema. Skin: General: Skin is warm and dry. Coloration: Skin is not pale. Neurological: General: No focal deficit present. Mental Status: She is alert. Mental status is at baseline. Psychiatric: Mood and Affect: Mood normal. Assessment & Plan Primary hypertension Orders: losartan (Cozaar) 50 mg tablet; Take 1 tablet (50 mg) by mouth once daily. Hyperlipidemia, unspecified hyperlipidemia type Orders: atorvastatin (Lipitor) 40 mg tablet; Take 0.5 tablets (20 mg) by mouth once daily. Acute left-sided low back pain with left-sided sciatica Orders: predniSONE (Deltasone) 10 mg tablet; 4 tabs daily for 3 days, 3 tabs daily for 3 days, 2 tabs daily for 3 days, 1 tab daily for 3 days, then discontinue Acute pain of right shoulder Orders: methocarbamol (Robaxin) 500 mg tablet; Take 1 tablet (500 mg) by mouth as needed at bedtime for muscle spasms for up to 10 days. Routine general medical examination at health care facility Stop motrin/ibuprofen. Continue exercises. Side effects dicussed, call concerns. Follow up 2-3 weeks. documented in this encounter [facility] Work Phone: 09-10-2024 Miscellaneous Notes Associated Problem(s): Hypertension Orders: losartan (Cozaar) 50 mg tablet; Take 1 tablet (50 mg) by mouth once daily. Associated Problem(s): Hyperlipidemia Orders: atorvastatin (Lipitor) 40 mg tablet; Take 0.5 tablets (20 mg) by mouth once daily. documented in this encounter [facility] Work Phone: 09-08-2024 Instructions Jose Quispe CNP - 09/08/2024 6:15 PM EDT Rest and increase fluids Motrin/Tylenol for pain Motrin 600mg every 6 hours as needed for pain Ice application as discussed Massage See exercises To be re-evaluated for new or worsening symptoms Follow up with family doctor if cramping continues for further evaluation and testing as it could be related to an electrolyte imbalance or medication side effect The following attachments cannot be sent through Care Everywhere.Sciatica: Exercises (Lebanese)Sciatica (Lebanese)documented in this encounter [facility] 09-08-2024 Note Patient Name: [facility] Location: Uzma Duran [address] [place] [id number] Date Of : Date Of Visit: 1945 09/08/2024 MRN# Provider: [id number] Jose Quispe CNP Chief Complaint Patient presents with - Leg Pain X Monday, cramps in calf that caused her to be unable to sleep, states she now feels it in her thigh, is now traveling up L hip, R shoulder, shooting pains, concern for sciatica, family hx of heart issues Assessment & Plan 1. Acute left-sided low back pain with left-sided sciatica 2. Left leg pain No follow-ups on file. Medical Decision Making Presents with acute left lower back pain/sciatica. Discussed taking [id number]-ryanqtz NSAIDs for pain. Also discussed ice application, rest, massage. Discussed following up with family doctor if cramping continues in left leg as it could be related to electrolyte imbalance or medication side effects. Patient verbalized understanding. To be reevaluated for new or worsening symptoms. Patient verbalized understanding. Rest and increase fluids Motrin/Tylenol for pain Motrin 600mg every 6 hours as needed for pain Ice application as discussed Massage See exercises To be re-evaluated for new or worsening symptoms Follow up with family doctor if cramping continues for further evaluation and testing as it could be related to an electrolyte imbalance or medication side effect This note was created using dictation software. While every effort has been made to ensure accuracy, there may be barrel repairer errors due to software interpretation. Imaging Documentation After reviewing the chief complaint, HPI, review of systems and social history, and exam-at this time no imaging is ordered during the patient encounter. Additional Clinical Comments Discussed over the counter medications for symptomatic management and potential side effects of medications. Educated patient and/or guardian about signs and symptoms that would warrant immediate evaluation in the emergency room. Recommended that they should return to urgent care, make an appointment with their PCP, or go to the emergency room if symptoms persist or get acutely worse. Subjective 78 y.o. female presents with Leg Pain (X Monday, cramps in calf that caused her to be unable to sleep, states she now feels it in her thigh, is now traveling up L hip, R shoulder, shooting pains, concern for sciatica, family hx of heart issues ) 78-year-old female presents to urgent care with a 2-day history of symptoms. States Monday night she started having cramps in her left calf, states it was better on Monday. States she took ibuprofen 400 mg for pain. States that cramping started in her left lateral thigh. Reports that the discomfort went into her left hip today. Also reports some discomfort in her right posterior shoulder. Denies falling. Reports having pain in her left lower back that radiates down her leg. Denies numbness or tingling in lower extremities. Denies loss of bowel or bladder function. Review Of Systems Review of Systems Constitutional: Negative for activity change. HENT: Negative for sore throat. Respiratory: Negative for cough. Gastrointestinal: Negative for diarrhea, nausea and vomiting. Musculoskeletal: Positive for arthralgias and back pain. Negative for joint swelling, myalgias and neck pain. Neurological: Negative for weakness and headaches. Medical History Past Medical History: Diagnosis Date - Arthritis Past Surgical History: Procedure Laterality Date - CT COLONOSCOPY 03/11/2022 CT COLONOSCOPY - HYSTERECTOMY Problem List[1] Social History Social History[2] Family History History reviewed. No pertinent family history. Objective Physical Exam BP (!) 174/95 Comment: rc osrt Pulse 80 Temp 98.4 degrees F (36.9 degrees C) (Tympanic) Resp 16 Wt 58.5 kg (129 lb) SpO2 96% BMI 25.19 kg/m Vision/Hearing Exam:No results found. Physical Exam Vitals and nursing note reviewed. Constitutional: Appearance: Normal appearance. HENT: Head: Normocephalic and atraumatic. Mouth/Throat: Mouth: Mucous membranes are moist. Pharynx: Oropharynx is clear. Eyes: Pupils: Pupils are equal, round, and reactive to light. Pulmonary: Effort: Pulmonary effort is normal. Musculoskeletal: General: No swelling, tenderness, deformity or signs of injury. Lumbar back: No tenderness. Normal range of motion. Positive left straight leg raise test. Negative right straight leg raise test. Back: Legs: Comments: No point tenderness on palpation of spine. Reports pain to left lower back into the buttock. Area without redness or bruising or swelling. Skin: General: Skin is warm and dry. Findings: No bruising, erythema or rash. Neurological: Mental Status: She is alert and oriented to person, place, and time. Procedure Notes Procedures Results No results found for this (more content not included)... [facility] 09-08-2024 History of Present illness Narrative Images from the original note were not included. Patient Name: [facility] Location: Uzma Duran [address] [place] [id number] Date Of : Date Of Visit: 1945 09/08/2024 MRN# Provider: [id number] Jose Quispe CNP Chief Complaint Patient presents with Leg Pain X Monday, cramps in calf that caused her to be unable to sleep, states she now feels it in her thigh, is now traveling up L hip, R shoulder, shooting pains, concern for sciatica, family hx of heart issues Assessment & Plan 1. Acute left-sided low back pain with left-sided sciatica 2. Left leg pain No follow-ups on file. Medical Decision Making Presents with acute left lower back pain/sciatica. Discussed taking [id number] NSAIDs for pain. Also discussed ice application, rest, massage. Discussed following up with family doctor if cramping continues in left leg as it could be related to electrolyte imbalance or medication side effects. Patient verbalized understanding. To be reevaluated for new or worsening symptoms. Patient verbalized understanding. Rest and increase fluids Motrin/Tylenol for pain Motrin 600mg every 6 hours as needed for pain Ice application as discussed Massage See exercises To be re-evaluated for new or worsening symptoms Follow up with family doctor if cramping continues for further evaluation and testing as it could be related to an electrolyte imbalance or medication side effect This note was created using dictation software. While every effort has been made to ensure accuracy, there may be barrel repairer errors due to software interpretation. Imaging Documentation After reviewing the chief complaint, HPI, review of systems and social history, and exam-at this time no imaging is ordered during the patient encounter. Additional Clinical Comments Discussed over the counter medications for symptomatic management and potential side effects of medications. Educated patient and/or guardian about signs and symptoms that would warrant immediate evaluation in the emergency room. Recommended that they should return to urgent care, make an appointment with their PCP, or go to the emergency room if symptoms persist or get acutely worse. Subjective 78 y.o. female presents with Leg Pain (X Monday, cramps in calf that caused her to be unable to sleep, states she now feels it in her thigh, is now traveling up L hip, R shoulder, shooting pains, concern for sciatica, family hx of heart issues ) 78-year-old female presents to urgent care with a 2-day history of symptoms. States Monday night she started having cramps in her left calf, states it was better on Monday. States she took ibuprofen 400 mg for pain. States that cramping started in her left lateral thigh. Reports that the discomfort went into her left hip today. Also reports some discomfort in her right posterior shoulder. Denies falling. Reports having pain in her left lower back that radiates down her leg. Denies numbness or tingling in lower extremities. Denies loss of bowel or bladder function. Review Of Systems Review of Systems Constitutional: Negative for activity change. HENT: Negative for sore throat. Respiratory: Negative for cough. Gastrointestinal: Negative for diarrhea, nausea and vomiting. Musculoskeletal: Positive for arthralgias and back pain. Negative for joint swelling, myalgias and neck pain. Neurological: Negative for weakness and headaches. Medical History Past Medical History: Diagnosis Date Arthritis Past Surgical History: Procedure Laterality Date CT COLONOSCOPY 03/11/2022 CT COLONOSCOPY HYSTERECTOMY Problem List[1] Social History Social History[2] Family History History reviewed. No pertinent family history. Objective Physical Exam BP (!) 174/95 Comment: rc osrt Pulse 80 Temp 98.4 F (36.9 C) (Tympanic) Resp 16 Wt 58.5 kg (129 lb) SpO2 96% BMI 25.19 kg/m Vision/Hearing Exam:No results found. Physical Exam Vitals and nursing note reviewed. Constitutional: Appearance: Normal appearance. HENT: Head: Normocephalic and atraumatic. Mouth/Throat: Mouth: Mucous membranes are moist. Pharynx: Oropharynx is clear. Eyes: Pupils: Pupils are equal, round, and reactive to light. Pulmonary: Effort: Pulmonary effort is normal. Musculoskeletal: General: No swelling, tenderness, deformity or signs of injury. Lumbar back: No tenderness. Normal range of motion. Positive left straight leg raise test. Negative right straight leg raise test. Back: Legs: Comments: No point tenderness on palpation of spine. Reports pain to left lower back into the buttock. Area without redness or bruising or swelling. Skin: General: Skin is warm and dry. Findings: No bruising, erythema or rash. Neurological: Mental Status: She is alert and oriented to person, place, and time. Procedure Notes Procedures Results No results found for this or any previous visit (from the past week). No orders to display Orders Placed This Visit No orders of the defined types were placed in this encounter. Medication List At End Of Visit Current Medications[3] Patient Instructions Rest and increase fluids Motrin/Tylenol for pain Motrin 600mg every 6 hours as needed for pain Ice application as discussed Massage See exercises To be re-evaluated for new or worsening symptoms Follow up with family doctor if cramping continues for further evaluation and testing as it could be related to an electrolyte imbalance or medication side effect [1] Patient Active Problem List Diagnosis Trigger finger of left thumb Primary osteoarthritis of left hand [2] Social History Tobacco Use Smoking status: Never [3] Current Outpatient Medications Medication Sig Dispense Refill atorvastatin (LIPITOR) 20 MG tablet Take 1 (one) tablet (20 mg total) by mouth daily . 0 losartan (COZAAR) 50 MG tablet Take 1 (one) tablet (50 mg total) by mouth daily . No current facility-administered medications for this visit. documented in this encounter [facility] 02-09-2024 History of Present illness Narrative Follow up labs Subjective Uzma Duran is a 78 y.o. female who presents for Follow-up. HPI Htn, stable Hyperlipidemia, on atorvastatin, she prefers to take 20 over the 40 mg increase after her ct calcium score. Sees ENT for surveillance of thyroid nodules. Severe sleep apnea, was seeing specialist Review of Systems. Allergies Allergen Reactions Amlodipine Swelling Ankle swelling Penicillins Rash Current Outpatient Medications on File Prior to Visit Medication Sig Dispense Refill ascorbic acid/collagen hydr (COLLAGEN SKIN RENEWAL ORAL) Take by mouth. aspirin 81 mg EC tablet Take 1 tablet (81 mg) by mouth once daily. atorvastatin (Lipitor) 40 mg tablet Take 1 tablet (40 mg) by mouth once daily. (Patient taking differently: Take 0.5 tablets (20 mg) by mouth once daily.) 90 tablet 1 cyanocobalamin, vitamin B-12, (VITAMIN B-12 ORAL) Take by mouth. docosahexaenoic acid/epa (FISH OIL ORAL) 1,000mg. 1 capsule twice daily L. acidophilus/Bifid. animalis 32 billion cell capsule Take by mouth. magnesium 200 mg tablet Take by mouth. dmtigso-kbqy-rmtzj-oreg-capryl 100 mg-150 mg- 50 mg-150 mg capsule Take by mouth. losartan (Cozaar) 50 mg tablet Take 1 tablet (50 mg) by mouth once daily. 90 tablet 3 [DISCONTINUED] ALPRAZolam (Xanax) 0.25 mg tablet Take 1 tablet (0.25 mg) by mouth once daily as needed for anxiety. (Patient not taking: Reported on 12/20/2023) 4 tablet 0 [DISCONTINUED] calcium-vitamin D3-vitamin K (Viactiv) 650 mg-12.5 mcg-40 mcg chewable tablet Chew 2 tablets once daily. No current facility-administered medications on file prior to visit. Patient Active Problem List Diagnosis Elevated glucose Hyperlipidemia Multiple thyroid nodules Osteoporosis Severe obstructive sleep apnea Tubular adenoma of colon Hypertension Agatston CAC score, >400 Objective Visit Vitals BP 126/78 (BP Location: Left arm, Patient Position: Sitting) Pulse 76 Physical Exam Vitals and nursing note reviewed. Constitutional: General: She is not in acute distress. Appearance: Normal appearance. She is not toxic-appearing. HENT: Head: Normocephalic and atraumatic. Cardiovascular: Rate and Rhythm: Normal rate and regular rhythm. Heart sounds: No murmur heard. Pulmonary: Effort: Pulmonary effort is normal. Breath sounds: Normal breath sounds. Musculoskeletal: Cervical back: Neck supple. No rigidity. Comments: Skin: General: Skin is warm and dry. Neurological: General: No focal deficit present. Mental Status: She is alert and oriented to person, place, and time. Psychiatric: Mood and Affect: Mood normal. Behavior: Behavior normal. Assessment/Plan Problem List Items Addressed This Visit Elevated glucose Relevant Orders Hemoglobin A1C Hyperlipidemia Relevant Orders CBC and Auto Differential Comprehensive Metabolic Panel Lipid Panel TSH with reflex to Free T4 if abnormal Vitamin B12 Osteoporosis Relevant Orders Vitamin D 25-Hydroxy,Total (for eval of Vitamin D levels) Hypertension Other Visit Diagnoses Screening mammogram for breast cancer - Primary Relevant Orders BI mammo bilateral screening tomosynthesis Call concerns. Follow up 12 mos, labs prior. Cyndi Horn MD documented in this encounter [facility] Work Phone: 12-20-2023 History of Present illness Narrative Images from the original note were not included. CHIEF COMPLAINT Referred by PCP, Dr. Horn, for abnormal CAC score HISTORY OF PRESENT ILLNESS Patient presents to review CAC results. She underwent screening for heart disease with a CAC score of 489. Patient denies any chest pain/pressure/discomfort, SOB, palpitations, dizziness, syncope, or lower leg swelling. She walks 8-10,000 steps a day and is actively working on lifestyle modifications and has lost 15lbs. Patient does not routinely check BP at home and reports medication compliance. -Lipid panel (January,)-showing cholesterol and LDL at goal; currently on atorvastatin 40mg daily Cardiovascular testing: CAC score (October,)-489 Past Medical, Surgical, and Family History reviewed and updated in chart. Reviewed all medications by prescribing practitioner or clinical pharmacist (such as prescriptions, OTCs, herbal therapies and supplements) and documented in the medical record. Past Medical History Past Medical History: Diagnosis Date Hyperlipidemia, unspecified 02/03/2022 Hyperlipidemia Mallet finger, acquired 05/31/2022 Midline cystocele 05/31/2022 Obstructive sleep apnea (adult) (pediatric) 02/03/2022 Severe obstructive sleep apnea Other abnormal glucose 02/03/2022 Elevated glucose Other specified personal risk factors, not elsewhere classified 02/04/2020 10 year risk of MT or stroke 7.5% or greater Rectocele, female 05/31/2022 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 Social History Social History Tobacco Use Smoking status: Former Types: Cigarettes Smokeless tobacco: Never Substance Use Topics Alcohol use: Yes Drug use: Never Family History Family History Problem Relation Name Age of Onset Asthma Mother Diabetes Mother Osteoporosis Mother Lung cancer Mother Other (cardiac disorder) Father Hypertension Father Prostate cancer Father Other (Psychological disorder) Father Allergies: Allergies Allergen Reactions Amlodipine Swelling Ankle swelling Penicillins Rash Outpatient Medications: Current Outpatient Medications Medication Instructions ALPRAZolam (XANAX) 0.25 mg, oral, Daily PRN atorvastatin (LIPITOR) 40 mg, oral, Daily calcium-vitamin D3-vitamin K (Viactiv) 650 mg-12.5 mcg-40 mcg chewable tablet 2 tablets, Daily cyanocobalamin, vitamin B-12, (VITAMIN B-12 ORAL) Take by mouth. docosahexaenoic acid/epa (FISH OIL ORAL) 1,000mg. 1 capsule twice daily L. acidophilus/Bifid. animalis 32 billion cell capsule Take by mouth. losartan (COZAAR) 50 mg, oral, Daily magnesium 200 mg tablet Take by mouth. cajhtfr-sikn-ailbj-oreg-capryl 100 mg-150 mg- 50 mg-150 mg capsule Take by mouth. Labs: CMP: Recent Labs 01/31/23 1200 06/28/22 1058 02/02/22 1045 02/02/21 1002 02/03/20 1042 NA 138 138 140 139 140 K 3.9 3.9 3.9 4.1 4.1 CL 104 103 106 104 105 CO2 28 27 26 30 27 ANIONGAP 10 12 12 9* 12 BUN 18 20 18 22 16 CREATININE 0.85 0.85 0.77 0.79 0.76 EGFR 71 -- -- -- -- Recent Labs 01/31/23 1200 02/02/22 1045 02/02/21 1002 02/03/20 1042 02/13/19 1044 ALBUMIN 4.1 4.1 4.0 4.1 4.1 ALKPHOS 77 70 66 67 75 ALT 14 21 17 14 14 AST 18 21 19 19 17 BILITOT 0.6 0.6 0.6 0.8 0.6 CBC: Recent Labs 01/31/23 1200 02/02/22 1045 02/02/21 1002 02/03/20 1042 02/13/19 1044 WBC 8.0 6.7 6.2 6.9 6.9 HGB 12.9 13.2 13.6 13.8 13.5 HCT 40.3 41.3 40.7 41.1 40.4 PLT 228 243 270 251 234 MCV 99 99 96 97 97 COAG: No results for input(s): PTT, INR, HAUF, DDIMERVTE, HAPTOGLOBIN, FIBRINOGEN in the last 05604 hours. ABO: No results for input(s): ABO in the last 68348 hours. HEME/ENDO: Recent Labs 01/31/23 1200 02/02/22 1045 02/02/21 1002 02/03/20 1042 TSH 1.20 1.09 1.33 1.85 HGBA1C 5.2 5.3 5.2 5.2 CARDIAC: No results for input(s): LDH, CKMB, TROPHS, BNP in the last 18868 hours. No lab exists for component: CK, CKMBP Recent Labs 01/31/23 1200 02/02/22 1045 02/02/21 1002 02/03/20 1042 CHOL 170 165 177 184 LDLF -- 79 88 100* HDL 72.0 73.0 72.0 67.0 TRIG 74 67 87 84 MICRO: No results for input(s): ESR, CRP, PROCAL in the last 15790 hours. No results found for the last 90 days. Notable Studies: imaging personally reviewed EKG:No results found for this or any previous visit (from the past 4464 hours). Echocardiogram: No results found for this or any previous visit from the past 1825 days. Stress Testing: No results found for this or any previous visit from the past 1825 days. Cardiac Catheterization: No results found for this or any previous visit from the past 1825 days. No results found for this or any previous visit from the past 3650 days. REVIEW OF SYSTEMS A 10-point system review was completed and was negative except as noted in the HPI. VITALS Vitals: 12/20/23 0824 BP: 110/70 Pulse: 74 SpO2: 98% PHYSICAL EXAM General: awake, alert and oriented. No acute distress. Skin: Skin is warm, dry and intact without rashes or lesions. HEENT: normocephalic, atraumatic; conjunctivae are clear without exudates or hemorrhage. Sclera is non-icteric. Eyelids are normal in appearance without swelling or lesions. Hearing intact. Nares are patent bilaterally. Moist mucous membranes. Cardiovascular: heart rate and rhythm are normal. No murmurs, gallops, or rubs are auscultated. S1 and S2 are heard and are of normal intensity. No JVD, no carotid bruits Respiratory: bilateral lung sounds clear to auscultations without rales, rhonchi, or wheezes. No accessory muscle use or stridor Musculoskeletal: ROM intact, no deformities Extremities: no swelling or erythema Neurological: no focal deficits; gait steady Psychiatric: appropriate mood and affect; good judgment and insight ASSESSMENT AND PLAN Assessment/Plan Diagnoses and all orders for this visit: Encounter to discuss test results Mixed hyperlipidemia Agatston CAC score, >400 Primary hypertension -Reviewed CAC results -IOEKG showing NSR -Patient asymptomatic from a CV standpoint -BP is normotensive -Lipid panel at goal and PCP recently increased atorvastatin to 40mg daily for higher intensity dosing -Start ASA 81mg daily -No further testing warranted at this present time given patient is asymptomatic RTC: as needed Thank you for allowing me to participate in the care of this patient. Please reach me out if you have any questions or if you need any clarifications regarding the patient's care. Virginia Velázquez DNP, ANALYSIS REPORTING DEVELOPER, RACKING MACHINE OPERATOR-C Division of Cardiovascular Medicine [facility] documented in this encounter [facility] Work Phone: 12-07-2023 History of Present illness Narrative Follow up CT Subjective Uzma Duran is a 77 y.o. female who presents for Follow-up. HPI Here to discuss ct calcium score that she had requested. She has no symptoms, short of breath walking up inclines , chronic, stable, but can hike 3-4 miles with no symptoms. Reviewed results, recommend increase statin from 20 to 40, consider asa Review of Systems All other systems reviewed and are negative. .81 mg. Discussed option of cardiology opinion and she is agreeable to same. Allergies Allergen Reactions Amlodipine Swelling Ankle swelling Penicillins Rash Current Outpatient Medications on File Prior to Visit Medication Sig Dispense Refill ALPRAZolam (Xanax) 0.25 mg tablet Take 1 tablet (0.25 mg) by mouth once daily as needed for anxiety. 4 tablet 0 calcium-vitamin D3-vitamin K (Viactiv) 650 mg-12.5 mcg-40 mcg chewable tablet Chew 2 tablets once daily. cyanocobalamin, vitamin B-12, (VITAMIN B-12 ORAL) Take by mouth. docosahexaenoic acid/epa (FISH OIL ORAL) 1,000mg. 1 capsule twice daily L. acidophilus/Bifid. animalis 32 billion cell capsule Take by mouth. losartan (Cozaar) 50 mg tablet Take 1 tablet (50 mg) by mouth once daily. 90 tablet 3 magnesium 200 mg tablet Take by mouth. tkzzlxi-aolb-oabmc-oreg-capryl 100 mg-150 mg- 50 mg-150 mg capsule Take by mouth. [DISCONTINUED] atorvastatin (Lipitor) 20 mg tablet take 1 tablet by mouth once daily 90 tablet 1 No current facility-administered medications on file prior to visit. Patient Active Problem List Diagnosis Elevated glucose Hyperlipidemia Multiple thyroid nodules Osteoporosis Severe obstructive sleep apnea Tubular adenoma of colon Hypertension Objective Visit Vitals BP 130/78 (BP Location: Left arm, Patient Position: Sitting) Pulse 76 Physical Exam Vitals reviewed. HENT: Head: Normocephalic. Pulmonary: Effort: Pulmonary effort is normal. Skin: Coloration: Skin is not pale. Neurological: General: No focal deficit present. Mental Status: She is alert. Psychiatric: Mood and Affect: Mood normal. FINDINGS: The score and distribution of calcium in the coronary arteries is as follows: LM: 196. LAD: 243. LCx: 50. RCA: 0. Total: 489. The visualized segments of the lungs are normally expanded. Punctate calcified granuloma in the left lower lobe. The visualized mid/lower ascending thoracic aorta measures 3.5 cm in diameter. The heart is mildly enlarged. No pericardial effusion is present. No gross evidence of mediastinal or hilar lymphadenopathy is identified. IMPRESSION: 1. Coronary artery calcium score of 489*. Assessment/Plan Problem List Items Addressed This Visit Hyperlipidemia Relevant Medications atorvastatin (Lipitor) 40 mg tablet Other Visit Diagnoses Abnormal screening cardiac CT - Primary Relevant Orders Referral to Cardiology Need for influenza vaccination Relevant Orders Flu vaccine, trivalent, preservative free, no egg protein, age 18y+ (Flublok) (Completed) Cyndi Horn MD documented in this encounter [facility] Work Phone: 11-17-2023 History of Present illness Narrative Sleep Study Check-In Documentation Date: November 17, 2023 Name: Uzma Duran Comments: HST was returned in working order with all sleep questionnaires Soraya Garibay Nomad # [id number] , date shipped out 11-14-23 [employer] only Tracking mailout: [id number] Tracking return: [id number] October 22, 2023 An order has been received for Home Sleep Apnea Test (HSAT) from Naomi Torres MD , A. Sleep Center Staff/Recreational Programs Director Staff Orders. Visit prep complete - Please refer to the sleep study order (under procedures tab) for protocol details and special instructions. The sleep study is scheduled for 916. Insurance: Payor: A[employer] MEDICARE / Plan: A[employer] MEDICARE PPO / Product Type: PPO / Payer/Plan Subscr Sex Relation Sub. Ins. ID Effective Group Num 1. [employer] MEDICAR* UZMA DURAN 1945 Female Self [id number] [birth year] [id number] [id number] Krupa Champagne documented in this encounter [facility] 11-17-2023 Note HNO ID: [id number] Author: ?, ?, ? Service: ? Author Type: ? Type: Progress Notes Filed: 11/17/2023 14:52 Note Text: Sleep Study Check-In Documentation Date: November 17, 2023 Name: Uzma Renee Comments: HST was returned in working order with all sleep questionnaires Soraya Garibay [facility] 11-14-2023 Note HNO ID: [id number] Author: ?, ?, ? Service: ? Author Type: ? Type: Progress Notes Filed: 11/17/2023 14:52 Note Text: Nomad # [id number] , date shipped out 11-14-23 [employer] only Tracking mailout: [id number] Tracking return: [id number] [facility] 10-22-2023 Note HNO ID: [id number] Author: ?, ?, ? Service: ? Author Type: ? Type: Progress Notes Filed: 11/17/2023 14:52 Note Text: October 22, 2023 An order has been received for Home Sleep Apnea Test (HSAT) from Naomi Torres MD , A. Sleep Center Staff/Recreational Programs Director Staff Orders. Visit prep complete - Please refer to the sleep study order (under procedures tab) for protocol details and special instructions. The sleep study is scheduled for 916. Insurance: Payor: AETNA MEDICARE / Plan: AETNA MEDICARE PPO / Product Type: PPO / Payer/Plan Subscr Sex Relation Sub. Ins. ID Effective Group Num 1. [employer] MEDICAR* UZMA DURAN 1945 Female Self [id number] [birth year] [id number] [id number] Krupa Champagne [facility] 10-19-2023 History of Present illness Narrative Will be traveling soon and would like something to take to help her relax on the plane; also wants to discuss getting the CT calcium scoring test done. Subjective Uzma Duran is a 77 y.o. female who presents for Medication Question. HPI To discuss several things. States her friend a former toll bridge attendant recommended she get a script for xanax, she is requesting same. Discussed risks, side effects, habit forming nature and instructions for use. She would like to get a ct calcium score that her health public speaking coach recommended. Wonders my opinion on vibration tables, advised I know of no harm they can do, they are not anything I am currently recommending. HTN stable Review of Systems All other systems reviewed and are negative. . Objective Visit Vitals BP 128/80 Pulse 76 Physical Exam Vitals reviewed. HENT: Head: Normocephalic. Skin: Coloration: Skin is not pale. Neurological: General: No focal deficit present. Mental Status: She is alert. Psychiatric: Mood and Affect: Mood normal. Assessment/Plan Problem List Items Addressed This Visit Hypertension Other Visit Diagnoses Anxiety with flying - Primary Relevant Medications ALPRAZolam (Xanax) 0.25 mg tablet Screening for heart disease Relevant Orders CT cardiac scoring wo IV contrast As per hpi, call concerns. Cyndi Horn MD documented in this encounter [facility] Work Phone: 10-13-2023 History of Present illness Narrative VIRTUAL VISIT PROGRESS NOTE This is a virtual visit using MyChart Zoom Video Visit. It required patient-provider interaction for the medical decision making as documented below. The patient's identity and physical location were verified at the time of this visit. Either the patient or their legal surgical sales representative has been informed of the risks and benefits of -- and alternatives to -- treatment through a remote evaluation and consents to proceed with the evaluation remotely. Uzma Duran is a 77 year old female seen for OAT follow up. She reports sleeping well overall and has been working with a bookbinding machine operator on diet and lifestyle modification. She is also using mouth tape. She feels this along with the appliance adjustment at the last visit are improving her sleep quality. She has not made any advancements since the last visit. ACTIVE PROBLEM LIST Marcy (Obstructive Sleep Apnea) Htn (Hypertension) Hld (Hyperlipidemia) Current Outpatient Medications on File Prior to Visit Medication Sig losartan (COZAAR) 50 mg tablet Take 50 mg by mouth every 24 hours. atorvastatin (LIPITOR) 20 mg tablet Take by mouth q 24 HR. No current facility-administered medications on file prior to visit. ALLERGIES Allergen Reactions Penicillins Rash VIDEO EXAM: (if completed, performed via video enabled technology) No exam performed ASSESSMENT/PLAN: Doing well with OAT but difficult to assess change since the most repeat sleep study. Discussed with patient and will contact Dr. Trejo for next steps. Rodri Benoit DMD documented in this encounter [facility] 10-13-2023 Note HNO ID: [id number] Author: RODRI BENOIT DMD Service: ? Author Type: Dentist Type: Progress Notes Filed: 10/17/2023 10:26 Note Text: VIRTUAL VISIT PROGRESS NOTE This is a virtual visit using Se[employer] Video Visit. It required patient-provider interaction for the medical decision making as documented below. The patient's identity and physical location were verified at the time of this visit. Either the patient or their legal surgical sales representative has been informed of the risks and benefits of -- and alternatives to -- treatment through a remote evaluation and consents to proceed with the evaluation remotely. Uzma Duran is a 77 year old female seen for OAT follow up. She reports sleeping well overall and has been working with a bookbinding machine operator on diet and lifestyle modification. She is also using mouth tape. She feels this along with the appliance adjustment at the last visit are improving her sleep quality. She has not made any advancements since the last visit. ACTIVE PROBLEM LIST Marcy (Obstructive Sleep Apnea) Htn (Hypertension) Hld (Hyperlipidemia) Current Outpatient Medications on File Prior to Visit Medication Sig losartan (COZAAR) 50 mg tablet Take 50 mg by mouth every 24 hours. atorvastatin (LIPITOR) 20 mg tablet Take by mouth q 24 HR. No current facility-administered medications on file prior to visit. ALLERGIES Allergen Reactions Penicillins Rash VIDEO EXAM: (if completed, performed via video enabled technology) No exam performed ASSESSMENT/PLAN: Doing well with OAT but difficult to assess change since the most repeat sleep study. Discussed with patient and will contact Dr. Trejo for next steps. Rodri Benoit, RANJEET [facility] 08-03-2023 History of Present illness Narrative Med check Subjective Reason for Visit: Uzma Duran is an 77 y.o. female here for a Medicare Wellness visit. Was treated last week for poison veronica, uses Tecnu otc, went to urgent care and using steroid cream. Going to PT for back pain and is helping, states she is pleased. HTN, stable Hyperlipidemia, on statin Working with a friend who is a health public speaking coach, working on nutrition. And states she has two recommendations for labs. She will call us with those. Discussed may have to check on insurance coverage depending on what they are. Osteoporosis, on calcium with D supplement, trying to get regular exercise, declined prescription treatment for now Sleep apnea- seeing dentist in [facility], just had mouthpiece adjusted and will go back in September for follow up. Recommend she consider seeing a sleep specialist if not at goal with this treatment, reviewed risks of untreated sleep apnea. Past Medical, Surgical, and Family History reviewed and updated in chart. Current Outpatient Medications: atorvastatin (Lipitor) 20 mg tablet, take 1 tablet by mouth once daily, Disp: 90 tablet, Rfl: 1 calcium-vitamin D3-vitamin K (Viactiv) 650 mg-12.5 mcg-40 mcg chewable tablet, Chew 2 tablets once daily., Disp: , Rfl: cyanocobalamin, vitamin B-12, (VITAMIN B-12 ORAL), Take by mouth., Disp: , Rfl: docosahexaenoic acid/epa (FISH OIL ORAL), 1,000mg. 1 capsule twice daily, Disp: , Rfl: L. acidophilus/Bifid. animalis 32 billion cell capsule, Take by mouth., Disp: , Rfl: losartan (Cozaar) 50 mg tablet, Take 1 tablet (50 mg) by mouth once daily., Disp: 90 tablet, Rfl: 3 magnesium 200 mg tablet, Take by mouth., Disp: , Rfl: npplqbe-bqrb-dcqpu-oreg-capryl 100 mg-150 mg- 50 mg-150 mg capsule, Take by mouth., Disp: , Rfl: Reviewed all medications by prescribing practitioner or clinical pharmacist (such as prescriptions, OTCs, herbal therapies and supplements) and documented in the medical record. Patient Active Problem List Diagnosis Elevated glucose Hyperlipidemia Multiple thyroid nodules Osteoporosis Severe obstructive sleep apnea Tubular adenoma of colon Hypertension Menopause HPI Patient Care Team: Cyndi Horn MD as PCP - General (Family Medicine) Cyndi Horn MD as PCP - [employer]vantage PCP Review of Systems All other systems reviewed and are negative. Objective Vitals: BP 124/72 (BP Location: Left arm, Patient Position: Sitting) Pulse 76 Ht 1.524 m (5') Wt 62.6 kg (138 lb) BMI 26.95 kg/m Physical Exam Vitals reviewed. HENT: Head: Normocephalic. Eyes: General: No scleral icterus. Neck: Thyroid: No thyromegaly. Cardiovascular: Rate and Rhythm: Normal rate and regular rhythm. Pulmonary: Effort: Pulmonary effort is normal. Breath sounds: Normal breath sounds. Skin: Coloration: Skin is not pale. Neurological: General: No focal deficit present. Mental Status: She is alert. Psychiatric: Mood and Affect: Mood normal. Assessment/Plan Problem List Items Addressed This Visit Elevated glucose Relevant Orders Hemoglobin A1C Hyperlipidemia Relevant Orders Lipid Panel Osteoporosis Relevant Orders Vitamin D 25-Hydroxy,Total (for eval of Vitamin D levels) Severe obstructive sleep apnea Hypertension Relevant Orders CBC and Auto Differential TSH with reflex to Free T4 if abnormal Vitamin B12 Lipid Panel Hemoglobin A1C Comprehensive Metabolic Panel Vitamin D 25-Hydroxy,Total (for eval of Vitamin D levels) Other Visit Diagnoses Routine general medical examination at health care facility - Primary Need for hepatitis C screening test Relevant Orders Hepatitis C antibody Continue current care, followup six months, labs prior. Call concerns. documented in this encounter [facility] Work Phone: 07-27-2023 History of Present illness Narrative DENTISTRY AND MAXILLOFACIAL PROSTHETICS Uzma Duran [id number] 07/27/2023 SUBJECTIVE: Uzma Duran presents today for follow-up regarding the oral mandibular advancement device. She is using the oral appliance 7 nights per week for approximately 6-8 hours per night. She had a repeat sleep study with the oral appliance which showed an AHI of 18.4 which is up from the prior AHI of 9.6. She feels better with the appliance. Patient-Entered Questionnaires 02/15/2023 03/01/2023 Dental Intake Sleep Follow-up Night per week appliance 7 7 Hours per night appliance 6-8 6-8 Snore while wearing appliance Yes Yes Appliance comfortable Yes Yes More refreshed No Yes More energy No Yes Bite feels normal Yes Yes Teeth/jaw pain No No 07/03/2022 12/04/2022 02/15/2023 [place] Sleepiness Scale Sitting and Reading? Slight chance of dozing Slight chance of dozing Slight chance of dozing Watching TV? Slight chance of dozing Slight chance of dozing Slight chance of dozing Sitting inactive in a public place (e.g a theater or a meeting) No chance of dozing No chance of dozing No chance of dozing As a passenger in a car for an hour without a break? No chance of dozing No chance of dozing Slight chance of dozing Lying down to rest in the afternoon when circumstances permit? Slight chance of dozing Moderate chance of dozing Moderate chance of dozing Sitting and talking to someone? No chance of dozing No chance of dozing No chance of dozing Sitting quietly after lunch without alcohol? No chance of dozing Slight chance of dozing No chance of dozing In a car, while stopped for a few minutes in traffic? No chance of dozing No chance of dozing No chance of dozing Total Score 3 (No clinically significant daytime sleepiness) 5 (No clinically significant daytime sleepiness) 5 (No clinically significant daytime sleepiness) Score compared to last 3 (EQUAL = 3) 1 (GREATER = 1) 3 (EQUAL = 3) Patient Questionairre: Do you snore when using the appliance? YES Is the appliance comfortable? YES Do you feel any more refreshed during the day? NO Does your bite return to normal each day? YES Do you have any pain in your teeth or jaw? NO ESS today = 4 Medical history:reviewed, no change. OBJECTIVE: General appearance, eyes, ears, nose, neck, face, and salivary glands are grossly symmetric and remain unchanged. Dentition remains unchanged. Hard and soft palate are unchanged. Oral mucosa and tongue are unchanged. No facial pain. Exam reveals bilateral stable occlusal support and no significant change in teeth mobility. At the current position, the patient has 5mm of remaining protrusive ROM. Advanced 10 turns bilaterally in the office today. ASSESSMENT: She appears to have a fair response to the oral appliance. Obstructive sleep apnea is symptomatically somewhat improved but objectively shows residual MARCY. PLAN: Continue oral appliance therapy at this more advanced position. If use becomes painful during advancement then stop, go back to the last comfortable position and contact the office. Next appointment: 4 weeks for reassessment. Call sooner if use becomes painful or with any other concerns. Rodri Benoit DMD documented in this encounter [facility] 07-27-2023 Note HNO ID: [id number] Author: RODRI BENOIT DMD Service: ? Author Type: Dentist Type: Progress Notes Filed: 07/28/2023 09:16 Note Text: DENTISTRY AND MAXILLOFACIAL PROSTHETICS Uzma Renee [id number] 07/27/2023 SUBJECTIVE: Uzma Renee presents today for follow-up regarding the oral mandibular advancement device. She is using the oral appliance 7 nights per week for approximately 6-8 hours per night. She had a repeat sleep study with the oral appliance which showed an AHI of 18.4 which is up from the prior AHI of 9.6. She feels better with the appliance. Patient-Entered Questionnaires 02/15/2023 03/01/2023 Dental Intake Sleep Follow-up Night per week appliance 7 7 Hours per night appliance 6-8 6-8 Snore while wearing appliance Yes Yes Appliance comfortable Yes Yes More refreshed No Yes More energy No Yes Bite feels normal Yes Yes Teeth/jaw pain No No 07/03/2022 12/04/2022 02/15/2023 [place] Sleepiness Scale Sitting and Reading? Slight chance of dozing Slight chance of dozing Slight chance of dozing Watching TV? Slight chance of dozing Slight chance of dozing Slight chance of dozing Sitting inactive in a public place (e.g a theater or a meeting) No chance of dozing No chance of dozing No chance of dozing As a passenger in a car for an hour without a break? No chance of dozing No chance of dozing Slight chance of dozing Lying down to rest in the afternoon when circumstances permit? Slight chance of dozing Moderate chance of dozing Moderate chance of dozing Sitting and talking to someone? No chance of dozing No chance of dozing No chance of dozing Sitting quietly after lunch without alcohol? No chance of dozing Slight chance of dozing No chance of dozing In a car, while stopped for a few minutes in traffic? No chance of dozing No chance of dozing No chance of dozing Total Score 3 (No clinically significant daytime sleepiness) 5 (No clinically significant daytime sleepiness) 5 (No clinically significant daytime sleepiness) Score compared to last 3 (EQUAL = 3) 1 (GREATER = 1) 3 (EQUAL = 3) Patient Questionairre: Do you snore when using the appliance? YES Is the appliance comfortable? YES Do you feel any more refreshed during the day? NO Does your bite return to normal each day? YES Do you have any pain in your teeth or jaw? NO ESS today = 4 Medical history:reviewed, no change. OBJECTIVE: General appearance, eyes, ears, nose, neck, face, and salivary glands are grossly symmetric and remain unchanged. Dentition remains unchanged. Hard and soft palate are unchanged. Oral mucosa and tongue are unchanged. No facial pain. Exam reveals bilateral stable occlusal support and no significant change in teeth mobility. At the current position, the patient has 5mm of remaining protrusive ROM. Advanced 10 turns bilaterally in the office today. ASSESSMENT: She appears to have a fair response to the oral appliance. Obstructive sleep apnea is symptomatically somewhat improved but objectively shows residual MARCY. PLAN: Continue oral appliance therapy at this more advanced position. If use becomes painful during advancement then stop, go back to the last comfortable position and contact the office. Next appointment: 4 weeks for reassessment. Call sooner if use becomes painful or with any other concerns. Rodri Benoit DMD [facility] 07-17-2023 Telephone encounter Note Lvm for pt notifying to call to schedule the appt below. Sent MC message [facility] 07-17-2023 Miscellaneous Notes Lvm for pt notifying to call to schedule the appt below. Sent MC message ----- Message from Rodri Benoit DMD sent at 07/12/2023 9:00 PM EDT ----- Appointment Request (please link patient chart to message) Provider: Cy Appt date: tennille Time: Length: 20 Appt Notes: Sleep follow up for possible adjustment Does patient need to be contacted to confirm? yes documented in this encounter [facility] 07-17-2023 Telephone encounter Note ----- Message from Rodri Benoit DMD sent at 07/12/2023 9:00 PM EDT ----- Appointment Request (please link patient chart to message) Provider: Cy Appt date: tennille Time: Length: 20 Appt Notes: Sleep follow up for possible adjustment Does patient need to be contacted to confirm? yes [facility] 07-12-2023 Telephone encounter Note 07/11/23 Patient was scheduled for virtual visit today but was unable to log in. We connected via telephone to discuss her progress with OAT. She had a repeat sleep study using the appliance on 06/01/23 which showed an AHI of 18.4 as compared to the prior study with an AHI of 9.6. I have recommended she discuss with Dr. Trejo and will want to see her back to consider whether further advancement is possible. Rodri Benoit DMD [facility] Work Phone: 07-12-2023 Miscellaneous Notes 07/11/23 Patient was scheduled for virtual visit today but was unable to log in. We connected via telephone to discuss her progress with OAT. She had a repeat sleep study using the appliance on 06/01/23 which showed an AHI of 18.4 as compared to the prior study with an AHI of 9.6. I have recommended she discuss with Dr. Trejo and will want to see her back to consider whether further advancement is possible. Rodri Benoit DMD documented in this encounter [facility] 06-15-2023 History of Present illness Narrative Follow up bone density Subjective Uzma Duran is a 77 y.o. female who presents for Follow-up. HPI Here to review bone density report. Shows possible compression fracture at t6, she does have pain with prolonged standing in this area. Also shows osteoporosis. Discussed fracture risk, medications, and will give her handout to review. At this time she's not inclined toward treatment but will call if that changes. Discussed regular weight bearing exercise as well as adequate calcium and vitamin D intake. Sees chiropractor regularly for preventive care she states. Review of Systems All other systems reviewed and are negative. . Objective Visit Vitals BP 118/70 (BP Location: Left arm, Patient Position: Sitting) Pulse 76 Physical Exam Vitals reviewed. Pulmonary: Effort: Pulmonary effort is normal. Neurological: General: No focal deficit present. Mental Status: She is alert. Psychiatric: Mood and Affect: Mood normal. Assessment/Plan Problem List Items Addressed This Visit Osteoporosis Other Visit Diagnoses Chronic midline thoracic back pain - Primary Relevant Orders XR thoracic spine 3 views Follow up as scheduled, call concerns/questions. Cyndi Horn MD documented in this encounter [facility] Work Phone: 06-05-2023 Note HNO ID: [id number] Author: ?, ?, ? Service: ? Author Type: ? Type: Progress Notes Filed: 06/05/2023 13:09 Note Text: Sleep Study Check-In Documentation Date: June 05, 2023 Name: Uzma Duran Comments: HST was returned in working order without all sleep questionnaires Soraya Garibay [facility] 06-05-2023 History of Present illness Narrative Sleep Study Check-In Documentation Date: June 05, 2023 Name: Uzma Duran Comments: HST was returned in working order without all sleep questionnaires Soraya Garibay [facility]#[id number] , date shipped out 05/30 Tracking mailout:[id number] fedex Tracking return: [id number] May 21, 2023 An order has been received for Home Sleep Apnea Test (HSAT) from Naomi Torres MD , A. [facility] Staff/Recreational Programs Director Staff Orders. Visit prep complete - Please refer to the sleep study order (under procedures tab) for protocol details and special instructions. The sleep study is scheduled for 05/31. Insurance: Payor: [employer] MEDICARE / Plan: [employer] MEDICARE PPO / Product Type: PPO / Payer/Plan Subscr Sex Relation Sub. Ins. ID Effective Group Num 1. [employer]ESSIKA MEDICAR* UZMA DURAN 1945 Female Self [id number] [birth year] [id number] [id number] Krupa Champagne documented in this encounter [facility] 05-31-2023 Note HNO ID: [id number] Author: ?, ?, ? Service: ? Author Type: ? Type: Progress Notes Filed: 06/05/2023 13:09 Note Text: [facility]#[id number] , date shipped out 05/30 Tracking mailout:[id number] fedex Tracking return: [id number] [facility] 05-21-2023 Note HNO ID: [id number] Author: ?, ?, ? Service: ? Author Type: ? Type: Progress Notes Filed: 06/05/2023 13:09 Note Text: May 21, 2023 An order has been received for Home Sleep Apnea Test (HSAT) from Naomi Torres MD , A. Sleep Center Staff/Recreational Programs Director Staff Orders. Visit prep complete - Please refer to the sleep study order (under procedures tab) for protocol details and special instructions. The sleep study is scheduled for 05/31. Insurance: Payor: [employer] MEDICARE / Plan: [employer] MEDICARE PPO / Product Type: PPO / Payer/Plan Subscr Sex Relation Sub. Ins. ID Effective Group Num 1. [employer] MEDICMYRANDA* UZMA DURAN 1945 Female Self [id number] [birth year] [id number] [address] Krupa Champagne [facility] 05-16-2023 History of Present illness Narrative DENTISTRY AND MAXILLOFACIAL PROSTHETICS Uzma Duran [id number] 05/16/2023 SUBJECTIVE: Uzma Duran presents today for follow-up regarding the oral mandibular advancement device. She reports nearly full resolution of the prior ear pain when she stopped using the elastics. Patient-Entered Questionnaires Dental Intake Sleep Follow-up 02/15/2023 03/01/2023 Night per week appliance 7 7 Hours per night appliance 6-8 6-8 Snore while wearing appliance Yes Yes Appliance comfortable Yes Yes More refreshed No Yes More energy No Yes Bite feels normal Yes Yes Teeth/jaw pain No No [place] Sleepiness Scale 07/03/2022 12/04/2022 02/15/2023 Sitting and Reading Slight chance of dozing Slight chance of dozing Slight chance of dozing Watching TV Slight chance of dozing Slight chance of dozing Slight chance of dozing Sitting inactive in a public place (e.g. a theater or a meeting). No chance of dozing No chance of dozing No chance of dozing As a passenger in a car for an hour without a break No chance of dozing No chance of dozing Slight chance of dozing Lying down to rest in the afternoon when circumstances permit Slight chance of dozing Moderate chance of dozing Moderate chance of dozing Sitting and talking to someone No chance of dozing No chance of dozing No chance of dozing Sitting quietly after lunch without alcohol No chance of dozing Slight chance of dozing No chance of dozing In a car, while stopped for a few minutes in traffic No chance of dozing No chance of dozing No chance of dozing Total Score 3 (No daytime sleepiness) 5 (No daytime sleepiness) 5 (No daytime sleepiness) Score compared to last 3 (EQUAL = 3) 1 (GREATER = 1) 3 (EQUAL = 3) Patient Questionairre: Do you snore when using the appliance? YES Is the appliance comfortable? YES Do you feel any more refreshed during the day? YES Does your bite return to normal each day? unsure Do you have any pain in your teeth or jaw? Sometimes per above ESS today = 4 Medical history:reviewed, no change. OBJECTIVE: General appearance, eyes, ears, nose, neck, face, and salivary glands are grossly symmetric and remain unchanged. Dentition remains unchanged. Hard and soft palate are unchanged. Oral mucosa and tongue are unchanged. No facial pain. Appliance set to 1 mm on the left and 1mm on the right. Exam reveals bilateral stable occlusal support and no significant change in teeth mobility. At the current position, the patient has 8mm of remaining protrusive ROM. ASSESSMENT: She appears to have a good response to the oral appliance. Obstructive sleep apnea is symptomatically improved with oral appliance therapy though treatment may remain subtherapeutic. Assessment of oral appliance effectiveness is pending objective testing. PLAN: Referral back to Dr. Trejo to confirm efficacy. Next appointment: 6 weeks for reassessment. Call sooner if use becomes painful or with any other concerns. Rodri Benoit DMD documented in this encounter [facility] 05-16-2023 Note HNO ID: [id number] Author: RODRI BENOIT DMD Service: ? Author Type: Dentist Type: Progress Notes Filed: 05/16/2023 08:46 Note Text: DENTISTRY AND MAXILLOFACIAL PROSTHETICS Uzma Duran [id number] 05/16/2023 SUBJECTIVE: Uzma Duran presents today for follow-up regarding the oral mandibular advancement device. She reports nearly full resolution of the prior ear pain when she stopped using the elastics. Patient-Entered Questionnaires Dental Intake Sleep Follow-up 02/15/2023 03/01/2023 Night per week appliance 7 7 Hours per night appliance 6-8 6-8 Snore while wearing appliance Yes Yes Appliance comfortable Yes Yes More refreshed No Yes More energy No Yes Bite feels normal Yes Yes Teeth/jaw pain No No [place] Sleepiness Scale 07/03/2022 12/04/2022 02/15/2023 Sitting and Reading Slight chance of dozing Slight chance of dozing Slight chance of dozing Watching TV Slight chance of dozing Slight chance of dozing Slight chance of dozing Sitting inactive in a public place (e.g. a theater or a meeting). No chance of dozing No chance of dozing No chance of dozing As a passenger in a car for an hour without a break No chance of dozing No chance of dozing Slight chance of dozing Lying down to rest in the afternoon when circumstances permit Slight chance of dozing Moderate chance of dozing Moderate chance of dozing Sitting and talking to someone No chance of dozing No chance of dozing No chance of dozing Sitting quietly after lunch without alcohol No chance of dozing Slight chance of dozing No chance of dozing In a car, while stopped for a few minutes in traffic No chance of dozing No chance of dozing No chance of dozing Total Score 3 (No daytime sleepiness) 5 (No daytime sleepiness) 5 (No daytime sleepiness) Score compared to last 3 (EQUAL = 3) 1 (GREATER = 1) 3 (EQUAL = 3) Patient Questionairre: Do you snore when using the appliance? YES Is the appliance comfortable? YES Do you feel any more refreshed during the day? YES Does your bite return to normal each day? unsure Do you have any pain in your teeth or jaw? Sometimes per above ESS today = 4 Medical history:reviewed, no change. OBJECTIVE: General appearance, eyes, ears, nose, neck, face, and salivary glands are grossly symmetric and remain unchanged. Dentition remains unchanged. Hard and soft palate are unchanged. Oral mucosa and tongue are unchanged. No facial pain. Appliance set to 1 mm on the left and 1mm on the right. Exam reveals bilateral stable occlusal support and no significant change in teeth mobility. At the current position, the patient has 8mm of remaining protrusive ROM. ASSESSMENT: She appears to have a good response to the oral appliance. Obstructive sleep apnea is symptomatically improved with oral appliance therapy though treatment may remain subtherapeutic. Assessment of oral appliance effectiveness is pending objective testing. PLAN: Referral back to Dr. Terjo to confirm efficacy. Next appointment: 6 weeks for reassessment. Call sooner if use becomes painful or with any other concerns. Rodri Benoit, RANJEET [facility] 05-03-2023 Miscellaneous Notes Wendie Graves [facility] Sched Pool Hello Can you contact this patient and get her in for Sleep follow up 20-30 min Whenever patient is available in the next few weeks Thank you! documented in this encounter [facility] 04-13-2023 Miscellaneous Notes 04/13/2023 Talked by phone with patient today about her oral appliance for MARCY. She continues to use it routinely and has had improvement in the earache discussed previously. She also stopped using the elastics and prefers without them. She will continue use at this position and follow up in the office in 4 weeks. Rodri Benoit DMD documented in this encounter [facility] 03-03-2023 Note HNO ID: [id number] Author: RODRI BENOIT DMD Service: ? Author Type: Dentist Type: Progress Notes Filed: 03/03/2023 09:09 Note Text: DENTISTRY AND MAXILLOFACIAL PROSTHETICS Uzma Duran [id number] 03/02/2023 SUBJECTIVE: Uzma Duran presents today for follow-up regarding the oral mandibular advancement device. Patient-Entered Questionnaires Dental Intake Sleep Follow-up 02/15/2023 03/01/2023 Night per week appliance 7 7 Hours per night appliance 6-8 6-8 Snore while wearing appliance Yes Yes Appliance comfortable Yes Yes More refreshed No Yes More energy No Yes Bite feels normal Yes Yes Teeth/jaw pain No No [place] Sleepiness Scale 07/03/2022 12/04/2022 02/15/2023 Sitting and Reading Slight chance of dozing Slight chance of dozing Slight chance of dozing Watching TV Slight chance of dozing Slight chance of dozing Slight chance of dozing Sitting inactive in a public place (e.g. a theater or a meeting). No chance of dozing No chance of dozing No chance of dozing As a passenger in a car for an hour without a break No chance of dozing No chance of dozing Slight chance of dozing Lying down to rest in the afternoon when circumstances permit Slight chance of dozing Moderate chance of dozing Moderate chance of dozing Sitting and talking to someone No chance of dozing No chance of dozing No chance of dozing Sitting quietly after lunch without alcohol No chance of dozing Slight chance of dozing No chance of dozing In a car, while stopped for a few minutes in traffic No chance of dozing No chance of dozing No chance of dozing Total Score 3 (No daytime sleepiness) 5 (No daytime sleepiness) 5 (No daytime sleepiness) Score compared to last 3 (EQUAL = 3) 1 (GREATER = 1) 3 (EQUAL = 3) OBJECTIVE: General appearance, eyes, ears, nose, neck, face, and salivary glands are grossly symmetric and remain unchanged. Dentition remains unchanged. Hard and soft palate are unchanged. Oral mucosa and tongue are unchanged. No facial pain. Adjusted intaglio at ULQ FPD for patient comfort Balanced left and right turns as pt turned one side forward and one side backwards. Reviewed advancement Demonstrated placement of elastics with instructions for use - replace daily. ASSESSMENT: She appears to have a good response to the oral appliance. Obstructive sleep apnea is symptomatically minimally with oral appliance therapy though treatment may remain subtherapeutic. Assessment of oral appliance effectiveness is pending objective testing. PLAN: Continue oral appliance calibration as is comfortable up to 5 turns per week for the next 3-4 weeks or until late afternoon sleepiness and snoring are improved. If use becomes painful during advancement then stop, go back to the last comfortable position and contact the office. The patient is reminded to follow-up with medical specialists for ongoing medical management. Next appointment: 4 weeks for reassessment. Call sooner if use becomes painful or with any other concerns. Rodri Benoit DMD [facility] 02-17-2023 Note HNO ID: [id number] Author: Rodri Benoit DMD Service: ? Author Type: Dentist Type: Progress Notes Filed: 02/28/2023 1:51 PM Note Text: DENTISTRY AND MAXILLOFACIAL PROSTHETICS 02/17/2023 Uzma Duran [id number] SUBJECTIVE: This 77 year old female presents for insertion of her oral appliance for obstructive sleep apnea. We have reviewed the risks, benefits, alternatives, limitations, and reasonable expectations of oral appliance therapy. Consent form reviewed, signed, and copy offered to patient. She demonstrates understanding and wishes to proceed. Medical history:reviewed, no change.. OBJECTIVE: Try-in and adjustment of the HAMIDA PH appliance. Check and adjustment of bilateral balancing occlusal stops. Midlines confirmed with and without the appliance. MOG x 2 tried in and fit confirmed. Photos taken. ASSESSMENT: Instructions given and reviewed for use and care of the appliance. Patient demonstrated ability to insert and remove effectively. Patient demonstrated ability to complete mandibular repositioning. Warranty information given. The patient is comfortable with the appliance in place. PLAN: We reviewed the importance of daily adherence with the prescribed morning exercises and reviewed the recommended protocol. Begin oral appliance therapy and monitor for symptomatic improvement. Next appointment: one week(s) virtual. Call sooner if use becomes painful or with any other concerns. Rodri Benoit, RANJEET [facility] 02-10-2023 History of Present illness Narrative Female Pelvic Medicine & Reconstructive Surgery Post-Op Visit Uzma Durna is a 77 year old female who presents for a 12 Week post-op check s/p Robotic assisted-Laparoscopic sacrocolpopexy, Posterior colporrhaphy, Perineorrhaphy, and Cystoscopy. HPI: Pt has had some urinary leakage since surgery. Pt states she notices leaking most with the feeling of urge. However, urine would be unexpected and it would trickle down. She states that she does not have a great sense of smell, so she is unsure if it smelled like urine on the panty liner she was wearing. On the pad, it would be kind of yellowish/clearish but she was unsure if it was from the vitamins she has been taking. This past week, pt states that the leakage has improved and she has not had to wear a panty liner. She gets up at least 2 times at night to urinate. She has had this prior to her surgery. During the day, she voids every 3-4 hours. She does not have as much urgency during the day. She drinks tea and water during the day. She states she has tried to reduce her liquid intake prior to bed and this has not helped her nocturia. She also states that if she wears a pad a night, it would be dry in the morning. She denies any urinary leakage with cough, sneezing, and bending over. Patient denies any pain or aches in the pelvic area. Post-op complications: no Bleeding: no Pain: no If you had pain related to your prolapse before surgery, has your pain resolved? Not Applicable Abnormal vaginal discharge: no PFDI-20 Do you: Usually experience pressure in the lower abdomen? No (0) Usually experience heaviness or dullness in the pelvic area? No (0) Usually have a bulge or something falling out that you can see or feel in your vaginal area? No (0) Ever have to push on the vagina or around the rectum to have or complete a bowel movement? No (0) Usually experience a feeling of incomplete bladder emptying? Yes, somewhat bothersome (2) Ever have to push up on a bulge in the vaginal area with your fingers to start or complete urination? No (0) Feel you need to strain too hard to have a bowel movement? No (0) Feel you have not completely emptied your bowels at the end of a bowel movement? No (0) Usually lose stool beyond your control if your stool is well formed? No (0) Usually lose stool beyond your control if your stool is loose? No (0) Usually lose gas from the rectum beyond your control? No (0) Usually have pain when you pass your stool? No (0) Experience a strong sense of urgency and have to haynes to the bathroom to have a bowel movement? Yes, somewhat bothersome (2) Does part of your bowel ever pass through the rectum and bulge outside during or after a bowel movement? No (0) Usually experience frequent urination? Yes, somewhat bothersome (2) Usually experience urine leakage associated with a feeling of urgency, that is, a strong sensation of needing to go to the bathroom? Yes, somewhat bothersome (2) Usually experience urine leakage related to coughing, sneezing or laughing? Yes, somewhat bothersome (2) Usually experience small amounts of urine leakage (that is, drops)? Yes, somewhat bothersome (2) Usually experience difficulty emptying your bladder? Yes, not at all bothersome (1) Usually experience pain or discomfort in the lower abdomen or genital region? No (0) [place] Machine Operator offered: Patient accepts, visit chaperoned by scribe. OBJECTIVE: Vitals: BP 140/90 Ht 152.4 cm (5') Wt 63 kg (139 lb) BMI 27.15 kg/m General: Well appearing, alert, in no acute distress, well-hydrated, well nourished. Abdomen: Abdomen soft, non-tender, surgical incisions well-healed Pelvic: Ext. Genitalia: irritation from daily pad use Vagina: Good vaginal support and Surgical incisions are well healed POP-Q: Prolapse Noted: No Aa = -3.0 Ba = -3.0 C = -7.5 gh = 2.5 pb = 3.0 tvl = 7.5 Ap = -3.0 Bp = -3.0 D = N/A Cervix: Absent Urethra: Normal Bimanual: No tenderness Rectovaginal: Deferred ASSESMENT: Uzma Duran is a 77 year old female who is post-op; stable and doing well post-operative course uncomplicated PLAN: 1) S/P Gynecological Surgery: - May resume normal activities. - May resume intercourse, if desires. - Operative findings and pathology report reviewed, a copy was given to the patent for their records. - Patient expressed understanding. 2) Nocturia: - We discussed behavioral modifications including elevating legs 60-90 minutes prior to bed and overactive bladder medications. At this time, the patient would like to start with behavioral modifications over medications. RTC prn - pt will update our office through My Chart if she desires additional treatment for nocturia My final recommendations will be communicated back to the requesting physician by way of shared Medical record or letter via US mail. Medical Decision Making: Problems: Moderate: New problem with uncertain prognosis Data: Unique test result(s) reviewed: 1 Risk: Low: Low risk from testing/treatment Medical Decision Making Level: 3 - Low By signing my name below, Jazmyn Julio, attest that this documentation has been prepared under the direction and in the presence of Lorena Urbina MD and Harley Hoffman APRN.[employer] Electronically signed, Rowdy Montoya February 10, 2023 2:00 PM Provider Attestation: Lorena Julio MD, personally performed the services described in this documentation. All medical record entries made by the scribe were at my direction and in my presence. I have reviewed the chart and discharge instructions (if applicable) and agree that the record reflects my personal performance and is accurate and complete. Dr.Marie Verónica Urbina MD February 12, 2023 9:48 PM documented in this encounter [facility] 02-10-2023 Note HNO ID: [id number] Author: Lorena Urbina MD Service: ? Author Type: Physician Type: Progress Notes Filed: 02/12/2023 9:51 PM Note Text: Female Pelvic Medicine AND Reconstructive Surgery Post-Op Visit Uzma Renee is a 77 year old female who presents for a 12 Week post-op check s/p Robotic assisted-Laparoscopic sacrocolpopexy, Posterior colporrhaphy, Perineorrhaphy, and Cystoscopy. HPI: Pt has had some urinary leakage since surgery. Pt states she notices leaking most with the feeling of urge. However, urine would be unexpected and it would trickle down. She states that she does not have a great sense of smell, so she is unsure if it smelled like urine on the panty liner she was wearing. On the pad, it would be kind of yellowish/clearish but she was unsure if it was from the vitamins she has been taking. This past week, pt states that the leakage has improved and she has not had to wear a panty liner. She gets up at least 2 times at night to urinate. She has had this prior to her surgery. During the day, she voids every 3-4 hours. She does not have as much urgency during the day. She drinks tea and water during the day. She states she has tried to reduce her liquid intake prior to bed and this has not helped her nocturia. She also states that if she wears a pad a night, it would be dry in the morning. She denies any urinary leakage with cough, sneezing, and bending over. Patient denies any pain or aches in the pelvic area. Post-op complications: no Bleeding: no Pain: no If you had pain related to your prolapse before surgery, has your pain resolved? Not Applicable Abnormal vaginal discharge: no PFDI-20 Do you: Usually experience pressure in the lower abdomen? No (0) Usually experience heaviness or dullness in the pelvic area? No (0) Usually have a bulge or something falling out that you can see or feel in your vaginal area? No (0) Ever have to push on the vagina or around the rectum to have or complete a bowel movement? No (0) Usually experience a feeling of incomplete bladder emptying? Yes, somewhat bothersome (2) Ever have to push up on a bulge in the vaginal area with your fingers to start or complete urination? No (0) Feel you need to strain too hard to have a bowel movement? No (0) Feel you have not completely emptied your bowels at the end of a bowel movement? No (0) Usually lose stool beyond your control if your stool is well formed? No (0) Usually lose stool beyond your control if your stool is loose? No (0) Usually lose gas from the rectum beyond your control? No (0) Usually have pain when you pass your stool? No (0) Experience a strong sense of urgency and have to haynes to the bathroom to have a bowel movement? Yes, somewhat bothersome (2) Does part of your bowel ever pass through the rectum and bulge outside during or after a bowel movement? No (0) Usually experience frequent urination? Yes, somewhat bothersome (2) Usually experience urine leakage associated with a feeling of urgency, that is, a strong sensation of needing to go to the bathroom? Yes, somewhat bothersome (2) Usually experience urine leakage related to coughing, sneezing or laughing? Yes, somewhat bothersome (2) Usually experience small amounts of urine leakage (that is, drops)? Yes, somewhat bothersome (2) Usually experience difficulty emptying your bladder? Yes, not at all bothersome (1) Usually experience pain or discomfort in the lower abdomen or genital region? No (0) [employer] Machine Operator offered: Patient accepts, visit chaperoned by scrpaolo. OBJECTIVE: Vitals: BP 140/90 Ht 152.4 cm (5') Wt 63 kg (139 lb) BMI 27.15 kg/m? General: Well appearing, alert, in no acute distress, well-hydrated, well nourished. Abdomen: Abdomen soft, non-tender, surgical incisions well-healed Pelvic: Ext. Genitalia: irritation from daily pad use Vagina: Good vaginal support and Surgical incisions are well healed POP-Q: Prolapse Noted: No Aa = -3.0 Ba = -3.0 C = -7.5 gh = 2.5 pb = 3.0 tvl = 7.5 Ap = -3.0 Bp = -3.0 D = N/A Cervix: Absent Urethra: Normal Bimanual: No tenderness Rectovaginal: Deferred ASSESMENT: Uzma Duran is a 77 year old female who is post-op; stable and doing well post-operative course uncomplicated PLAN: 1) S/P Gynecological Surgery: - May resume normal activities. - May resume intercourse, if desires. - Operative findings and pathology report reviewed, a copy was given to the patent for their records. - Patient expressed understanding. 2) Nocturia: - We discussed behavioral modifications including elevating legs 60-90 minutes prior to bed and overactive bladder medications. At this time, the patient would like to start with behavioral modifications over medications. RTC prn - pt will update our office through My Chart if she desires additional treatment for nocturia My final recommendations will be communicated ba (more content not included)... [facility] 02-02-2023 History of Present illness Narrative Med check; labs Patient presents for periodic surveillance of chronic medical problems. Subjective Uzma Duran is a 77 y.o. female who presents for Annual Exam. HPI Htn, stable on current regimen Hyperlipidemia, stable on current regimen Sleep apnea, sees dentist and uses oral appliance Has thyroid nodules, saw Dr Davenport in 2021 and recommended she followup with him in a year, recommend she call and get that scheduled. Has severe leg cramps at times when watching tv. Drinks water and then takes care of it, discussed adequate hydration. Last week had a headache on the right side of her head. Was not worst headache of live and has resolved. She will call if recurs and discussed when to seek urgent /emergent care. Review of Systems All other systems reviewed and are negative. . Objective Visit Vitals BP 120/74 (BP Location: Left arm, Patient Position: Sitting) Pulse 80 Physical Exam Vitals and nursing note reviewed. Constitutional: General: She is not in acute distress. Appearance: Normal appearance. She is not toxic-appearing. HENT: Head: Normocephalic and atraumatic. Cardiovascular: Rate and Rhythm: Normal rate and regular rhythm. Heart sounds: No murmur heard. Pulmonary: Effort: Pulmonary effort is normal. Breath sounds: Normal breath sounds. Musculoskeletal: Cervical back: Neck supple. No rigidity. Comments: Skin: General: Skin is warm and dry. Neurological: General: No focal deficit present. Mental Status: She is alert and oriented to person, place, and time. Psychiatric: Mood and Affect: Mood normal. Behavior: Behavior normal. Assessment/Plan Problem List Items Addressed This Visit Elevated glucose Hyperlipidemia Osteoporosis Hypertension Menopause Relevant Orders XR DEXA bone density Other Visit Diagnoses Screening mammogram for breast cancer - Primary Relevant Orders BI mammo bilateral screening tomosynthesis Cyndi Horn MD documented in this encounter [facility] Work Phone: 01-03-2023 Note Addended by: NGUYEN ARREDONDO on: 01/03/2023 10:26 AM Modules accepted: Level of Service [facility] 01-03-2023 Note Addended by: NGUYEN ARREDONDO on: 01/03/2023 10:26 AM Modules accepted: Level of Service [facility] 01-03-2023 Miscellaneous Notes Addended by: NGUYEN ARREDONDO on: 01/03/2023 10:26 AM Modules accepted: Level of Service documented in this encounter [facility] 01-03-2023 Miscellaneous Notes Addended by: NGUYEN ARREDONDO on: 01/03/2023 10:26 AM Modules accepted: Level of Service documented in this encounter [facility] 01-03-2023 Instructions Nguyen Arredondo CNP - 01/03/2023 9:51 AM EST Viral illness, cough and sore throat. COVID test is negative. As we discussed, most likely a viral illness that is self-limiting. Tessalon Perles been prescribed to help with your cough, 1 capsule 3 times a day, stable last pill prior to bedtime. Warm salt water gargles, ibuprofen and warm steam inhalations to help with your symptoms. documented in this encounter [facility] 01-03-2023 Instructions Nguyen Arredondo CNP - 01/03/2023 9:51 AM EST Viral illness, cough and sore throat. COVID test is negative. As we discussed, most likely a viral illness that is self-limiting. Tessalon Perles been prescribed to help with your cough, 1 capsule 3 times a day, stable last pill prior to bedtime. Warm salt water gargles, ibuprofen and warm steam inhalations to help with your symptoms. documented in this encounter [facility] 01-03-2023 History of Present illness Narrative Images from the original note were not included. Patient Name: [facility] Location: Uzma Montero [address] [id number] Date Of : Date Of Visit: 1945 01/03/2023 MRN# Provider: [id number] Nguyen Arredondo CNP Chief Complaint Patient presents with Covid-19 Screening Cough, sroe throat, hoarse , x 5 days Assessment & Plan 1. Viral illness 2. Sore throat COVID-19, Molecular 3. Cough, unspecified type benzonatate (TESSALON) 100 MG capsule No follow-ups on file. Medical Decision Making I considered the length of time the patient has been symptomatic and that this would warrant being out of COVID quarantine and she does not qualify for FDA antivirals for COVID. She still would like to be tested since she has been around family. Physical exam did not reveal any acute findings. Mild nasal congestion with rhinorrhea and mild dysphonia. Most likely self-limiting viral symptoms. She is well-appearing and hemodynamically stable. COVID test is negative. Recommended [id number] symptomatic treatment and discussed this with the patient. She may continue to use DayQuil and NyQuil if she finds that beneficial. She has been prescribed Tessalon pearls to help with the cough, particularly during the night. Warm steam inhalations and warm salt water gargles. Additional Clinical Comments See AVS. Patient pleasant stable upon discharge. She is follow-up with PCP as needed. Parameters discussed as when to seek emergency care and she states understanding. Subjective 77 y.o. female presents with Covid-19 Screening (Cough, sroe throat, hoarse , x 5 days) Patient presents to the urgent care with concern for COVID. For the past 5 days she has had a sore throat, dry nonproductive cough that keeps her awake at night, and tiredness. 7 days ago she received both her flu shot and RSV shot as symptoms began the next day. Initially she dismissed it as a reaction from her shot but is concerned this is ongoing. She was around her teenage grandchildren and is concerned she could have caught COVID from them. She would like to be tested for COVID. Denies fever. Review Of Systems Review of Systems Constitutional: Positive for fatigue. Negative for activity change, appetite change, chills, diaphoresis and fever. HENT: Positive for congestion, rhinorrhea and sore throat. Negative for ear pain and postnasal drip. Mild dysphonia Respiratory: Positive for cough (Nonproductive). Negative for chest tightness, shortness of breath and wheezing. Cardiovascular: Negative for chest pain. Genitourinary: Negative for difficulty urinating. Musculoskeletal: Negative for arthralgias and myalgias. Neurological: Negative for dizziness and headaches. Psychiatric/Behavioral: Negative for confusion. Medical History Past Medical History: Diagnosis Date Arthritis Past Surgical History: Procedure Laterality Date HYSTERECTOMY Patient Active Problem List Diagnosis Trigger finger of left thumb Primary osteoarthritis of left hand Social History Social History Tobacco Use Smoking status: Never Family History History reviewed. No pertinent family history. Objective Physical Exam BP 124/81 (BP Location: Left arm, Patient Position: Sitting) Comment: r/c tea/rt Pulse 93 Temp 98.1 F (36.7 C) (Oral) Resp 14 Ht 5' Wt 63.5 kg (140 lb) SpO2 95% BMI 27.34 kg/m Vision/Hearing Exam:No results found. Physical Exam Vitals and nursing note reviewed. Constitutional: General: She is not in acute distress. Appearance: Normal appearance. She is well-developed. She is not ill-appearing, toxic-appearing or diaphoretic. HENT: Head: Normocephalic and atraumatic. Right Ear: Tympanic membrane, ear canal and external ear normal. Left Ear: Tympanic membrane, ear canal and external ear normal. Nose: Congestion and rhinorrhea present. Mouth/Throat: Lips: [place]. Mouth: Mucous membranes are moist. Pharynx: Uvula midline. Posterior oropharyngeal erythema present. No oropharyngeal exudate or uvula swelling. Tonsils: 0 on the right. 0 on the left. Comments: Mild posterior oropharyngeal erythema. Mild dysphonia, no dysphagia, swallows own secretions without difficulty. Eyes: General: Right eye: No discharge. Left eye: No discharge. Extraocular Movements: Extraocular movements intact. Conjunctiva/sclera: Conjunctivae normal. Cardiovascular: Rate and Rhythm: Normal rate and regular rhythm. Pulses: Normal pulses. Heart sounds: Normal heart sounds. No murmur heard. No friction rub. No gallop. Pulmonary: Effort: Pulmonary effort is normal. No respiratory distress. Breath sounds: Normal breath sounds. No stridor. No wheezing or rales. Musculoskeletal: Cervical back: Neck supple. Lymphadenopathy: Cervical: No cervical adenopathy. Skin: General: Skin is warm and dry. Capillary Refill: Capillary refill takes less than 2 seconds. Findings: No erythema or rash. Neurological: General: No focal deficit present. Mental Status: She is alert. Cranial Nerves: No cranial nerve deficit. Sensory: No sensory deficit. Psychiatric: Mood and Affect: Mood normal. Procedure Notes Procedures Results Recent Results (from the past 168 hour(s)) COVID-19, Molecular Collection Time: 01/03/23 9:48 AM Specimen: Nasal; Swab Result Value Ref Range SARS-CoV-2 Not Detected Not Detected No orders to display Orders Placed This Visit Orders Placed This Encounter Procedures COVID-19, Molecular Medication List At End Of Visit Current Outpatient Medications Medication Sig Dispense Refill atorvastatin (LIPITOR) 20 MG tablet Take 1 (one) tablet (20 mg total) by mouth daily . 0 losartan (COZAAR) 50 MG tablet Take 1 (one) tablet (50 mg total) by mouth daily . benzonatate (TESSALON) 100 MG capsule Take 1 (one) capsule (100 mg total) by mouth 3 (three) times a day as needed for cough . 20 capsule 0 No current facility-administered medications for this visit. Patient Instructions Viral illness, cough and sore throat. COVID test is negative. As we discussed, most likely a viral illness that is self-limiting. Tessalon Perles been prescribed to help with your cough, 1 capsule 3 times a day, stable last pill prior to bedtime. Warm salt water gargles, ibuprofen and warm steam inhalations to help with your symptoms. documented in this encounter [facility] 01-03-2023 History of Present illness Narrative Images from the original note were not included. Patient Name: [facility] Location: Uzma Duran [address] [place] [id number] Date Of : Date Of Visit: 1945 01/03/2023 MRN# Provider: [id number] Nguyen Arredondo CNP Chief Complaint Patient presents with Covid-19 Screening Cough, sroe throat, hoarse , x 5 days Assessment & Plan 1. Viral illness 2. Sore throat COVID-19, Molecular 3. Cough, unspecified type benzonatate (TESSALON) 100 MG capsule No follow-ups on file. Medical Decision Making I considered the length of time the patient has been symptomatic and that this would warrant being out of COVID quarantine and she does not qualify for FDA antivirals for COVID. She still would like to be tested since she has been around family. Physical exam did not reveal any acute findings. Mild nasal congestion with rhinorrhea and mild dysphonia. Most likely self-limiting viral symptoms. She is well-appearing and hemodynamically stable. COVID test is negative. Recommended [id number] symptomatic treatment and discussed this with the patient. She may continue to use DayQuil and NyQuil if she finds that beneficial. She has been prescribed Tessalon pearls to help with the cough, particularly during the night. Warm steam inhalations and warm salt water gargles. Additional Clinical Comments See AVS. Patient pleasant stable upon discharge. She is follow-up with PCP as needed. Parameters discussed as when to seek emergency care and she states understanding. Subjective 77 y.o. female presents with Covid-19 Screening (Cough, sroe throat, hoarse , x 5 days) Patient presents to the urgent care with concern for COVID. For the past 5 days she has had a sore throat, dry nonproductive cough that keeps her awake at night, and tiredness. 7 days ago she received both her flu shot and RSV shot as symptoms began the next day. Initially she dismissed it as a reaction from her shot but is concerned this is ongoing. She was around her teenage grandchildren and is concerned she could have caught COVID from them. She would like to be tested for COVID. Denies fever. Review Of Systems Review of Systems Constitutional: Positive for fatigue. Negative for activity change, appetite change, chills, diaphoresis and fever. HENT: Positive for congestion, rhinorrhea and sore throat. Negative for ear pain and postnasal drip. Mild dysphonia Respiratory: Positive for cough (Nonproductive). Negative for chest tightness, shortness of breath and wheezing. Cardiovascular: Negative for chest pain. Genitourinary: Negative for difficulty urinating. Musculoskeletal: Negative for arthralgias and myalgias. Neurological: Negative for dizziness and headaches. Psychiatric/Behavioral: Negative for confusion. Medical History Past Medical History: Diagnosis Date Arthritis Past Surgical History: Procedure Laterality Date HYSTERECTOMY Patient Active Problem List Diagnosis Trigger finger of left thumb Primary osteoarthritis of left hand Social History Social History Tobacco Use Smoking status: Never Family History History reviewed. No pertinent family history. Objective Physical Exam BP 124/81 (BP Location: Left arm, Patient Position: Sitting) Comment: r/c tea/rt Pulse 93 Temp 98.1 F (36.7 C) (Oral) Resp 14 Ht 5' Wt 63.5 kg (140 lb) SpO2 95% BMI 27.34 kg/m Vision/Hearing Exam:No results found. Physical Exam Vitals and nursing note reviewed. Constitutional: General: She is not in acute distress. Appearance: Normal appearance. She is well-developed. She is not ill-appearing, toxic-appearing or diaphoretic. HENT: Head: Normocephalic and atraumatic. Right Ear: Tympanic membrane, ear canal and external ear normal. Left Ear: Tympanic membrane, ear canal and external ear normal. Nose: Congestion and rhinorrhea present. Mouth/Throat: Lips: [place]. Mouth: Mucous membranes are moist. Pharynx: Uvula midline. Posterior oropharyngeal erythema present. No oropharyngeal exudate or uvula swelling. Tonsils: 0 on the right. 0 on the left. Comments: Mild posterior oropharyngeal erythema. Mild dysphonia, no dysphagia, swallows own secretions without difficulty. Eyes: General: Right eye: No discharge. Left eye: No discharge. Extraocular Movements: Extraocular movements intact. Conjunctiva/sclera: Conjunctivae normal. Cardiovascular: Rate and Rhythm: Normal rate and regular rhythm. Pulses: Normal pulses. Heart sounds: Normal heart sounds. No murmur heard. No friction rub. No gallop. Pulmonary: Effort: Pulmonary effort is normal. No respiratory distress. Breath sounds: Normal breath sounds. No stridor. No wheezing or rales. Musculoskeletal: Cervical back: Neck supple. Lymphadenopathy: Cervical: No cervical adenopathy. Skin: General: Skin is warm and dry. Capillary Refill: Capillary refill takes less than 2 seconds. Findings: No erythema or rash. Neurological: General: No focal deficit present. Mental Status: She is alert. Cranial Nerves: No cranial nerve deficit. Sensory: No sensory deficit. Psychiatric: Mood and Affect: Mood normal. Procedure Notes Procedures Results Recent Results (from the past 168 hour(s)) COVID-19, Molecular Collection Time: 01/03/23 9:48 AM Specimen: Nasal; Swab Result Value Ref Range SARS-CoV-2 Not Detected Not Detected No orders to display Orders Placed This Visit Orders Placed This Encounter Procedures COVID-19, Molecular Medication List At End Of Visit Current Outpatient Medications Medication Sig Dispense Refill atorvastatin (LIPITOR) 20 MG tablet Take 1 (one) tablet (20 mg total) by mouth daily . 0 losartan (COZAAR) 50 MG tablet Take 1 (one) tablet (50 mg total) by mouth daily . benzonatate (TESSALON) 100 MG capsule Take 1 (one) capsule (100 mg total) by mouth 3 (three) times a day as needed for cough . 20 capsule 0 No current facility-administered medications for this visit. Patient Instructions Viral illness, cough and sore throat. COVID test is negative. As we discussed, most likely a viral illness that is self-limiting. Tessalon Perles been prescribed to help with your cough, 1 capsule 3 times a day, stable last pill prior to bedtime. Warm salt water gargles, ibuprofen and warm steam inhalations to help with your symptoms. documented in this encounter [facility] 12-28-2022 Note HNO ID: [id number] Author: Harley Hoffman APRN.IRENE Service: ? Author Type: Nurse Practitioner Type: Progress Notes Filed: 12/28/2022 2:21 PM Note Text: UROGYN VIRTUAL POST-OP NOTE This is a virtual visit. It required patient-provider interaction for the medical decision making as documented below. Patient identified by and name. I obtained consent from the patient to complete the visit virtually. I have communicated my name and active licensure. The patient's identity and physical location were verified at the time of this visit. Either the patient or their legal surgical sales representative has been informed of the risks and benefits of -- and alternatives to -- treatment through a remote evaluation and consents to proceed with the evaluation remotely. Uzma Duran is a 77 year old female who presents for a 6 Week post-op check s/p Robotic assisted-Laparoscopic sacrocolpopexy, Posterior colporrhaphy, Perineorrhaphy, and Cystoscopy. Post-op complications: no Bleeding: no Pain: no - took pain medication for 48 hours If you had pain related to your prolapse before surgery, has your pain resolved? Not Applicable Abnormal vaginal discharge: no Urinary incontinence: no Voiding dysfunction: no Urinary frequency: slight increase in frequency - continues getting up twice per night Urinary urgency: no Prolapse symptoms: no Defecatory dysfunction: no Fecal incontinence: no Overall, how satisfied were you with your postoperative pain medication? Satisfied With regard to your expectations before surgery, did you have the amount of pain you expected, more pain, or less pain? Less pain than I expected Was the preoperative teaching you had about pain expectations helpful? Yes Were the discharge instructions you received about pain medications helpful? Yes PHYSICAL EXAMINATION: VIDEO EXAM: (if completed, performed via video enabled technology) GENERAL: alert and appropriate, in no distress, well-hydrated, well nourished, and happy, smiling, interactive ASSESSMENT: Uzma Duran is a pleasant 77 year old female who is post-op, doing well. PLAN: May resume normal activities. May resume intercourse. Operative findings reviewed, pathology N/A Continue Estrace 3x/weekly Follow up as scheduled with Dr. Urbina Patient expressed understanding. Education and counseling provided regarding lifting restrictions Patient acknowledged understanding. Harley Hoffman APRN.IRENE [facility] 12-28-2022 History of Present illness Narrative UROGYN VIRTUAL POST-OP NOTE This is a virtual visit. It required patient-provider interaction for the medical decision making as documented below. Patient identified by and name. I obtained consent from the patient to complete the visit virtually. I have communicated my name and active licensure. The patient's identity and physical location were verified at the time of this visit. Either the patient or their legal surgical sales representative has been informed of the risks and benefits of -- and alternatives to -- treatment through a remote evaluation and consents to proceed with the evaluation remotely. Uzma Duran is a 77 year old female who presents for a 6 Week post-op check s/p Robotic assisted-Laparoscopic sacrocolpopexy, Posterior colporrhaphy, Perineorrhaphy, and Cystoscopy. Post-op complications: no Bleeding: no Pain: no - took pain medication for 48 hours If you had pain related to your prolapse before surgery, has your pain resolved? Not Applicable Abnormal vaginal discharge: no Urinary incontinence: no Voiding dysfunction: no Urinary frequency: slight increase in frequency - continues getting up twice per night Urinary urgency: no Prolapse symptoms: no Defecatory dysfunction: no Fecal incontinence: no Overall, how satisfied were you with your postoperative pain medication? Satisfied With regard to your expectations before surgery, did you have the amount of pain you expected, more pain, or less pain? Less pain than I expected Was the preoperative teaching you had about pain expectations helpful? Yes Were the discharge instructions you received about pain medications helpful? Yes PHYSICAL EXAMINATION: VIDEO EXAM: (if completed, performed via video enabled technology) GENERAL: alert and appropriate, in no distress, well-hydrated, well nourished, and happy, smiling, interactive ASSESSMENT: Uzma Duran is a pleasant 77 year old female who is post-op, doing well. PLAN: May resume normal activities. May resume intercourse. Operative findings reviewed, pathology N/A Continue Estrace 3x/weekly Follow up as scheduled with Dr. Urbina Patient expressed understanding. Education and counseling provided regarding lifting restrictions Patient acknowledged understanding. Harley Hoffman APRN.IRENE documented in this encounter [facility] 12-19-2022 Note HNO ID: [id number] Author: Rodri Benoit DMD Service: ? Author Type: Dentist Type: Progress Notes Filed: 12/21/2022 10:17 AM Note Text: DENTISTRY AND MAXILLOFACIAL PROSTHETICS 12/19/2022 Uzma Duran SUBJECTIVE: This 76 year old female presents to begin fabrication of her oral mandibular advancement device. We have reviewed the risks, benefits, alternatives, and personnel involved with treatment. She demonstrates understanding and wishes to proceed. Medical history:reviewed, no change.. OBJECTIVE: Maxillary and mandibular digital impressions taken. Protrusive bite registration made at 50% at on the Progauge. MT bite registration ASSESSMENT/PLAN: The patient has tolerated today's appointment well and will return for insertion of the appliance. Rx for HAMIDA PH appliance sent to [facility]. Rodri Benoit DMD [facility] 12-19-2022 History of Present illness Narrative DENTISTRY AND MAXILLOFACIAL PROSTHETICS 12/19/2022 Uzma Duran SUBJECTIVE: This 76 year old female presents to begin fabrication of her oral mandibular advancement device. We have reviewed the risks, benefits, alternatives, and personnel involved with treatment. She demonstrates understanding and wishes to proceed. Medical history:reviewed, no change.. OBJECTIVE: Maxillary and mandibular digital impressions taken. Protrusive bite registration made at 50% at on the Progauge. MT bite registration ASSESSMENT/PLAN: The patient has tolerated today's appointment well and will return for insertion of the appliance. Rx for HAMIDA PH appliance sent to [facility]. Rodri Benoit DMD documented in this encounter [facility] 12-05-2022 History of Present illness Narrative [facility], Oral Surgery, & Maxillofacial Prosthetics 12/05/2022 Uzma Duran SUBJECTIVE: This 76 year old female presents for consultation at the request of Naomi Trejo MD for evaluation of a possible oral mandibular advancement device for the treatment of MARCY. The patient tried CPAP 6 years ago for two months but could not use. She then got an oral appliance with a dentist and reports that it has worked well over the years. However, she is worried that it is 5 years old and might break. She also notes that it is not working quite as well as it once did. She learned that was a participating medicare provider and prefers not to pay out of pocket again for a new one. [place] Sleepiness Scale 12/04/2022 07/03/2022 03/06/2022 Score 5 (No daytime sleepiness) 3 (No daytime sleepiness) 3 (No daytime sleepiness) Bed partner? NO Snoring? YES Waking up gasping? NO Used CPAP in the past? YES Wake up during night? YES Daytime fatigue? NO Activities affected by fatigue? NO Hours of sleep per night? 7-8 Date of last dental exam? 07/2022 History of TMD? NO Current jaw/tooth pain? NO ACTIVE PROBLEM LIST Marcy (Obstructive Sleep Apnea) Htn (Hypertension) Hld (Hyperlipidemia) Current Outpatient Medications on File Prior to Visit Medication Sig docusate sodium (COLACE) 100 mg capsule Take 1 capsule by mouth twice daily. polyethylene glycol 3350 (MIRALAX) 17 gram/dose powder Take 17 g by mouth once daily. Dissolve dose in 4 - 8 ounces of liquid and take as directed. losartan (COZAAR) 50 mg tablet Take 50 mg by mouth every 24 hours. atorvastatin (LIPITOR) 20 mg tablet Take by mouth q 24 HR. No current facility-administered medications on file prior to visit. ALLERGIES Allergen Reactions Penicillins Rash OBJECTIVE: REVIEW OF SLEEP STUDY RESULTS: DATE MEAN O2% [place] O2% % BELOW 90% SUP AHI OFF SUP AHI AVG AHI AVG HR MAX HR 05/10/22 93 81 4.2 12 6.2 9.6 66 94 General appearance: pleasant, no distress. Pimentel Tongue Position: 3 Uvula: med Palatopharyngeal crowding: mild Maxillary kyaw: yes Mandibular lingual kyaw: bilateral Ridging of buccal mucosa: mild Scalloping of tongue: mild Bruxism: Mild Bilateral posterior open bite Existing appliance - JOCELYN DATE 12/05/2022 Mandibular ROM 48mm Midline At midline Right lateral 10mm Left lateral 10mm Protrusive ROM 9mm Overjet 0mm Overbite 0mm Angle class Right I Angle class Left I Crossbite #2-7, #11-15 Recession minimal Mobility none Open contacts 17, TMJ/muscle exam: no clicking, popping, or pain Radiographic Findings: Panorex taken today Thin condyle on the right Maxillary sinuses are clear bilaterally Alveolar bone levels show less than 50% bone loss ASSESSMENT: This pleasant 76 year old female has a history of MARCY diagnosed by Dr. Naomi Trejo. The medical history was reviewed and discussed with the patient and it was determined the patient is a candidate for a mandibular advancement device. Discussed the risks, benefits, alternatives, limitations, and reasonable expectations of oral appliance therapy with specific discussion focused on changes in occlusion, tooth movement and mobility, damage to teeth, facial pain, and TMD. Uzma Duran expressed understanding and agreed to proceed. All questions answered. PLAN: The patient will move forward with insurance predetermination and will return for impressions and records pending approval. The treatment plan consists of impressions and delivery of the oral appliance followed by continual evaluation of the patient's mandibular position until follow-up sleep study to confirm efficacy. The opinions/findings will be communicated to the referring provider via shared electronic medical record. Rodri Benoit DMD documented in this encounter [facility] 12-05-2022 Note HNO ID: [id number] Author: Rodri Benoit DMD Service: ? Author Type: Dentist Type: Progress Notes Filed: 12/05/2022 1:44 PM Note Text: [facility] [place] [facility], Oral Surgery, AND Maxillofacial Prosthetics 12/05/2022 Uzma Duran SUBJECTIVE: This 76 year old female presents for consultation at the request of Naomi Trejo MD for evaluation of a possible oral mandibular advancement device for the treatment of MARCY. The patient tried CPAP 6 years ago for two months but could not use. She then got an oral appliance with a dentist and reports that it has worked well over the years. However, she is worried that it is 5 years old and might break. She also notes that it is not working quite as well as it once did. She learned that was a participating medicare provider and prefers not to pay out of pocket again for a new one. [place] Sleepiness Scale 12/04/2022 07/03/2022 03/06/2022 Score 5 (No daytime sleepiness) 3 (No daytime sleepiness) 3 (No daytime sleepiness) Bed partner? NO Snoring? YES Waking up gasping? NO Used CPAP in the past? YES Wake up during night? YES Daytime fatigue? NO Activities affected by fatigue? NO Hours of sleep per night? 7-8 Date of last dental exam? 07/2022 History of TMD? NO Current jaw/tooth pain? NO ACTIVE PROBLEM LIST Mar[place] (Obstructive Sleep Apnea) Htn (Hypertension) Hld (Hyperlipidemia) Current Outpatient Medications on File Prior to Visit Medication Sig docusate sodium (COLACE) 100 mg capsule Take 1 capsule by mouth twice daily. polyethylene glycol 3350 (MIRALAX) 17 gram/dose powder Take 17 g by mouth once daily. Dissolve dose in 4 - 8 ounces of liquid and take as directed. losartan (COZAAR) 50 mg tablet Take 50 mg by mouth every 24 hours. atorvastatin (LIPITOR) 20 mg tablet Take by mouth q 24 HR. No current facility-administered medications on file prior to visit. ALLERGIES Allergen Reactions Penicillins Rash OBJECTIVE: REVIEW OF SLEEP STUDY RESULTS: DATE MEAN O2% [place] O2% % BELOW 90% SUP AHI OFF SUP AHI AVG AHI AVG HR MAX HR 05/10/22 93 81 4.2 12 6.2 9.6 66 94 General appearance: pleasant, no distress. Pimentel Tongue Position: 3 Uvula: med Palatopharyngeal crowding: mild Maxillary kyaw: yes Mandibular lingual kyaw: bilateral Ridging of buccal mucosa: mild Scalloping of tongue: mild Bruxism: Mild Bilateral posterior open bite Existing appliance - JOCELYN DATE 12/05/2022 Mandibular ROM 48mm Midline At midline Right lateral 10mm Left lateral 10mm Protrusive ROM 9mm Overjet 0mm Overbite 0mm Angle class Right I Angle class Left I Crossbite #2-7, #11-15 Recession minimal Mobility none Open contacts , TMJ/muscle exam: no clicking, popping, or pain Radiographic Findings: Panorex taken today Thin condyle on the right Maxillary sinuses are clear bilaterally Alveolar bone levels show less than 50% bone loss ASSESSMENT: This pleasant 76 year old female has a history of MARCY diagnosed by Dr. Naomi Trejo. The medical history was reviewed and discussed with the patient and it was determined the patient is a candidate for a mandibular advancement device. Discussed the risks, benefits, alternatives, limitations, and reasonable expectations of oral appliance therapy with specific discussion focused on changes in occlusion, tooth movement and mobility, damage to teeth, facial pain, and TMD. Uzma Duran expressed understanding and agreed to proceed. All questions answered. PLAN: The patient will move forward with insurance predetermination and will return for impressions and records pending approval. The treatment plan consists of impressions and delivery of the oral appliance followed by continual evaluation of the patient's mandibular position until follow-up sleep study to confirm efficacy. The opinions/findings will be communicated to the referring provider via shared electronic medical record. Rodri Benoit DMD [facility] 12-02-2022 Miscellaneous Notes Called patient verified name and Surgery 11/16/2022 Procedure(s): Robotic assisted-Laparoscopic sacrocolpopexy, Posterior colporrhaphy, Perineorrhaphy, and Cystoscopy States she is having some light discharge, drainage not sure if its urine or discharge Only wear a light liner Advised her that this is normal and should subside over the next few weeks Advised her to continue to monitor for worsening side effect and a change in symptoms Otherwise not to worry Also was questioning about her vaginal cream States she forgot and never started the cream pre op and asking if she could start Advised her that she is ok to start her cream She will use a pea sized amount for 2 weeks then 3 times per week Patient understood and was thankful for the call Will reach out if she needs to prior to her post op 12/28/2022 Jolie Han RN Patient: Uzma Duran : 1945 Provider: Lorena Urbina MD Caller Phone #: [phone] (home) [phone] (cell) Reason for call: pt post op 2 wks, still having leakage, very light yellow, changing pad 3 times/day. No blood, just drainage. Hard to tell where it's coming from. Vagina or urethra? Should she start using vaginal cream? Please call patient Message routed to nurse triage Date of next visit: Appointments for Next 60 Days Date Time Provider Location Dept Phone 12/05/2022 11:00 AM [facility] B[facility] [phone] 12/28/2022 1:45 PM HARLEY HOFFMAN [phone] documented in this encounter [facility] 11-14-2022 Miscellaneous Notes I called the patient and discussed urodynamic testing with her. She will not have a continence surgery. We will proceed with robotic assisted lsc sacrocolpopexy, no sling procedure, rectocele repair, and cystourethrosocpy. She needs to be consented the morning of surgery even though I spoke to her about risks and benefits tonight. I saw her note and there was some miscommunication about her needing to be called late at night. She was given instructions for preoperative Day #1. She has not used the vaginal estrogen but will start if 10-14 days after surgery. I reassured her that she would likely go home without a catheter. She is not sexually active at present due to her spouses' medical condition. Lorena Urbina MD documented in this encounter [facility] 11-11-2022 Miscellaneous Notes Called and spoke with patient. Verified by name and . Advised patient that Dr. Urbina will be sure to give her a call before her Surgery next Monday to discuss urodynamics and surgery plan. Pt is worried Dr. Urbina may call at a time where she is busy. Pt states any night from 7pm-10pm would be best to reach her. Will route to Dr. Urbina as SRINIVASAN Shankar RN Patient: Uzma Duran : 1945 Provider: Lorena Urbina MD Caller Phone #: [phone] (home) [phone] (cell) Reason for call: Pt calling stating she thought Dr urbina was supposed to call her last night regarding her urodynamics tests? Pt following up on this. Message routed to nurse triage Date of next visit: Appointments for Next 60 Days Date Time Provider Location Dept Phone 12/05/2022 11:00 AM [facility] B[facility] [phone] 12/28/2022 1:45 PM HARLEY HOFFMAN [phone] I will call the patient with urodynamics results and surgery plan. Lorena Urbina MD documented in this encounter [facility] 11-08-2022 History of Present illness Narrative URODYNAMICS ID Verified by: Camryn Magaña RN URODYNAMIC PROCEDURE NOTE Pt presents for pre-op UDS with PMH of TLH, stage III/IV vaginal vault prolapse, stage III/IV cystocele, and stage II rectocele. B/O UA: WNL Standing RECORDS ASSISTANT (-) & Valsalva (-) with prolapse reduced UROFLOWMETRY Voided vol: 498 mL Flow time: 51 sec Q max: 21 mL/sec Q av mL/sec PVR: 125 mL Note: Pt was unable to void for uroflow. Pt voided 225 mL into a hat and had PVR of 120 mL from straight cath. Pt backfilled to 350 mL s/p CMG to repeat uroflow (results above). CYSTOMETROGRAM Subtracted: Yes Video: No EMG: Yes First desire: 175 mL Strong desire: 234 mL Max. capacity: 371 mL Maximum filling detrusor pressure 8 cm of water Instability associated with urge: No Instability associated with leakage: No Leaks urine with valsalva /coughs: No Lowest Leak point pressure: n/a Was patient assessed for VLPP: Yes Was UPP done: No PRESSURE-FLOW VOIDING STUDY Voided: 375 mL Max Voiding Detrusor Pressure (Peak Pressure) 23cm H2O P det Q max (Max Flow) (Pressure at peak): 19 cm H2O Maximum Flow Rate: 15 mL/sec Average Flow Rate: 7 mL/sec Vaginal Packing for prolapse support: yes Comments: Pt tolerated procedure well. Home going instructions provided. Chart routed to Dr. Urbina and Dr. Frias as attending in-house. Please use Urodynamic Graph. ASSESSMENT: Filling and Storage: Bladder sensation is normal without bladder pain, without urgency and with normal detrusor function. Bladder capacity is normal. There is normal urethral closure and no evidence of urodynamic stress incontinence. Voiding: Overall voiding function is normal. Urine flow is continuous with a smooth flow curve. Detrusor function during voiding is normal with a normal postvoid residual. Electromyography: Provocative maneuvers produced appropriate changes in waveforms. The EMG shows increased EMG activity with increased intraabdominal pressure. There was a decrease in the EMG activity during voiding consistent with normal function of the pelvic floor. PLAN: Dr. Urbina to FU with patient for care planning Susan Frias MD documented in this encounter [facility] 11-08-2022 Instructions Nury Henriquez PA-C - 11/08/2022 12:58 PM EDT PATIENT PREOPERATIVE INSTRUCTIONS Lorena Urbina, * has scheduled you for your procedure at this surgery center: [facility] [place] Scheduling Office: [phone] --[address] [place] [address]. Please read below carefully for your personalized instructions. Dietary Restrictions: - No solid food after midnight. - You may have 12 ounces of clear liquids (water, clear juices such as apple juice or gatorade, carbonated beverages, clear tea, black coffee, jello) until 2 hours before scheduled arrival at facility. Medications: Unless instructed differently below, stay on all of your medications until your surgery. If you start any new medications after today's visit, please contact your surgeon. Pre-Surgery Med Instructions Medication Instructions losartan (COZAAR) 50 mg tablet Do not take for 24 hours prior to surgery atorvastatin (LIPITOR) 20 mg tablet Take the day of surgery with a small sip of water If you start any new medications after today's visit, please contact the surgeon's office. Blood Thinning Medications: - Stop NSAIDS (Ibuprofen, Advil, Aleve, Motrin, Celebrex, Mobic, etc.) 7 days before surgery, as directed by your surgeon. - Stop Aspirin 7 days before surgery, as directed by your surgeon. - Stop Vitamin E, ALL multi-vitamins, herbals and dietary supplements 7 days before surgery. - You may take Tylenol (Acetaminophen) or any of your pain medications that do not contain aspirin or NSAIDS as needed. Important Reminders: - Candy, mints, and tobacco products are NOT permitted the morning of surgery. - Hearing aids, dentures and glasses may be worn the morning of surgery. - NO jewelry, body piercings, makeup, hairpins or contacts are to be worn the day of surgery. If you develop symptoms such as a fever, cold, or flu, or have other changes to your health within TWO DAYS of scheduled surgery or the morning of surgery, please contact the surgery center above. Personal Belongings: -Please have photo ID and insurance cards. -If you do not have a copy of advance directives on file with us, please bring a copy with you on the day of surgery. - Leave ALL valuables and money at home or with family members. For Outpatient Procedures: - YOU MUST HAVE A RESPONSIBLE SALES DEVELOPMENT MANAGER TAKE YOU HOME. A STAIN REMOVER OR ENGINEERING ANALYST CANNOT BE MADE A RESPONSIBLE SALES DEVELOPMENT MANAGER. - We recommend that a responsible person stays with you overnight to take care of you. - You cannot stay in a hotel alone after outpatient surgery. You will not be permitted to have your surgery, if you do not have someone to take care of you. Arrival Time for Surgery: - To obtain your arrival time for surgery, call your physician's office the day before your surgery. - If your surgery is scheduled for Monday, call the Monday before. Your surgeon s medical assembly will tell you what time to call the office. - If you have not reached the departmental medical assembly by 5 P.M., call [phone] after 5 P.M. the day before your surgery. Please be aware that emergency situations arise, which may delay or change your surgical time. If this happens, we will notify you as soon as possible and regret any inconvenience. If you already have an Advance Directive, please fax a copy to [phone] or email to for it to be added to your chart. If you do not have an Advance Directive, you can find the appropriate form and more information at [email or web address]. We recommend that you complete the Advance Directive form found on the website and bring it with you the day of your surgery. It can be witnessed and scanned into your chart that day. Nury Henriquez PA-C documented in this encounter [facility] 11-08-2022 History and physical note HISTORY AND PHYSICAL EXAMINATION SERVICE DATE: 11/08/2022 SERVICE TIME: 12:44 PM PRIMARY CARE PHYSICIAN: Cyndi Horn MD REASON FOR VISIT: Uzma Duran is a 76 year old female who is scheduled for ROBOTIC LAPAROSCOPIC COLPOPEXY with or without robot, CYSTOSCOPY, REPAIR RECTOCELE - (Possible), SUSPENSION BLADDER SLING - (Possible) at the request of Dr. Lorena Urbina for consultation. My final recommendation will be communicated back to the requesting physician by way of shared medical record or letter. The patient has the following: ACTIVE PROBLEM LIST Marcy (Obstructive Sleep Apnea) Htn (Hypertension) Hld (Hyperlipidemia) Subjective CHIEF COMPLAINT: vaginal vault prolapse HPI: 76 year old female scheduled for ROBOTIC LAPAROSCOPIC COLPOPEXY with or without robot, CYSTOSCOPY, REPAIR RECTOCELE - (Possible), SUSPENSION BLADDER SLING - (Possible) on 11/16/2022. Patient has vaginal vault prolapse that has been present for about 2 years. Denies any fever, chills, nausea, vomiting, chest pain, abdominal pain, SOB. PAST MEDICAL HISTORY Diagnosis Date HLD (hyperlipidemia) 11/08/2022 HTN (hypertension) 11/08/2022 Mixed hyperlipidemia MARCY (obstructive sleep apnea) 11/08/2022 Sleep apnea PAST SURGICAL HISTORY Procedure Laterality Date PAST SURGICAL HISTORY OF colonoscopy TOTAL ABDOM HYSTERECTOMY FAMILY HISTORY Problem Relation Age of Onset Anesthesia Problems No Family History SOCIAL HISTORY: Social History Tobacco Use Smoking status: Never Passive exposure: Never Smokeless tobacco: Never Substance Use Topics Alcohol use: Yes Alcohol/week: 3.0 standard drinks of alcohol Types: 3 Glasses of wine per week Comment: 2 glassses of wine a week per pt 11/08/2022 Drug use: Never Prior to Admission medications as of 11/08/22 1248 Medication Sig Last Dose Taking losartan (COZAAR) 50 mg tablet Take 50 mg by mouth every 24 hours. Taking Yes atorvastatin (LIPITOR) 20 mg tablet Take by mouth q 24 HR. Taking Yes estradiol (ESTRACE) 0.01 % (0.1 mg/gram) vaginal cream Apply 1 pea-sized amount of cream into the lower vagina with fingertip every night for 2 weeks then 3 times weekly. No medication comments found. ALLERGIES Allergen Reactions Penicillins Rash COVID VACCINATION STATUS: Fully vaccinated REVIEW OF SYSTEMS: PAIN ASSESSMENT: General: No weight loss, malaise or fevers. Neuro: No history of TIA's, stroke, INFRASTRUCTURE TECH tumor, impaired sensorium, hemiplegia, paraplegia or quadraplegia. No neurological symptoms or problems. Respiratory: Negative for Asthma, Bronchitis, COPD, Current cough, Dyspnea, Pneumonia within 6 weeks (date), Tobacco Use, URI < 2 weeks+MARCY-uses mouthpiece Cardiovascular: Negative for Recent MT, Angina, Arrhythmia, CAD, Chest Pain, CHF, PVD, Valvular Heart Disease +HTN, +HLD GI: No history of GI symptoms or problems. No history of esophageal varices, recent ascites, or ETOH greater than 2 drinks per day. : No history of dysuria, frequency or incontinence,, stones or chronic kidney disease ASSISTANT PURCHASING MANAGER: See HPI : Denies, No LMP recorded. Patient has had a hysterectomy. Endocrine: No history of diabetes. Has not taken steroids within the past 30 days. No history of endocrinological symptoms or problems. Hematology: No history of bleeding or clotting disorder. Pt is not taking anti-coagulation or platelet medications. No history of hematological symptoms or problems. Oncology: No history of CA metastasis, chemo within 30 days, or radiotherapy within 90 days. Has not lost 10% of body wt in 6 months. No history of oncological symptoms or problems. Psych: No history of psychiatric symptoms or problems. Musculoskeletal: Negative for joint pain or swelling, back pain or muscle pain. Skin: Negative for lesions, rash and itching. Objective PHYSICAL EXAM: VITALS: BP 142/72 Pulse 77 Temp (Src) 97.8 (Oral) Ht 5' 0 (1.52m) Wt 139 lb (63.1kg) SpO2 97% BMI 27.15 kg/(m^2). General: Alert and oriented, No acute distress Skin: Normal color, no rash, no lesions. HEENT: EOM, pupils equal, round and reactive., No carotid bruits Cardiovascular: Normal S1 & S2, no rubs, murmurs or gallops. No JVD. Pulse regular. Lungs: Normal breath sounds, no wheezes or crackles. Extremities: No deformity, no edema or tenderness, no joint swelling or clubbing. Neurological: Normal cognition and motor skills. Gait normal. No weakness or sensory deficit. Pulses: Radial pulses normal +2. Diagnostic tests reviewed for today's visit: Lab Value Units Date High Low HB No results within date range. HCT No results within date range. WBC No results within date range. PLT No results within date range. NA No results within date range. K No results within date range. GLUC No results within date range. BUN No results within date range. CREAT No results within date range. PTSEC No results within date range. INR No results within date range. APTT No results within date range. ALT No results within date range. AST No results within date range. TBILI No results within date range. TSH No results within date range. Lab Value Units Date High Low HCGQT No results within date range. UHCG No results within date range. HCG, BODY* No results within date range. Lab Value Units Date High Low ABORHD No results within date range. ABSCREEN No results within date range. No results found for: HBA1C Labs pending Assessment/Plan MARCY (obstructive sleep apnea) -uses a mouthpiece HTN (hypertension) -stable on losartan -BP in office 142/72 -denies cardiac symptoms HLD (hyperlipidemia) -stable on rx METS: Climb a flight of stairs or walk up a hill (5.50 METs) Patient denies any chest pain or undue shortness of breath with the above physical activity. Hikes regularly ANESTHESIA FINDINGS: Intubation History: No history of difficult intubation Significant Anesthesia Considerations: None Airway Exam: General: Normal appearance Mallampati Score is CLASS III ULBT: Class I - Lower incisors can bite the upper lip above the horacio line Neck: Normal appearance and function, Distance from hyoid to mentum during neck extension is at least 3 finger breaths Mouth: Normal tongue size and Mouth opening greater than 2 finger breaths Dentition: Caps/crowns and Bridge Airway History: No abnormal airway history Sleep Apnea Probability Snores loudly: No Tired, fatigued or sleepy in daytime: No Stops breathing or choking/gasping during sleep: No High blood pressure: Yes Sleep Apnea Probability Score 11/03/2022 Sleep Apnea Screen V2 35 (Sleep study not recommended) PLAN This patient is optimally prepared for surgery pending LABS. CONSULTS: Patient does not require consults for optimization at this time. The Following Tests/Procedures Have Been Initiated: Orders Placed This Encounter BMP Standing Status: Future Number of Occurrences: 1 Standing Expiration Date: 01/07/2023 CBC with Differential Standing Status: Future Number of Occurrences: 1 Standing Expiration Date: 01/07/2023 , EKG not indicated per [facility] protocol Planned Anesthetic: Per anesthesia choice Instructions Given to Patient: Instructions located in the after visit summary. Patient given verbal and written preop instructions and voices comprehension and compliance. SIGNATURE: Nury Henriquez PA-C PATIENT NAME: Uzma Duran DATE: November 08, 2022 TIME: 2:16 PM documented in this encounter [facility] 10-26-2022 Instructions Cierra Cobos LPN - 10/26/2022 12:58 PM EDT UROGYNECOLOGY PHYSICIAN CONTACT INFORMATION During business hours, these numbers connect to your doctor s office. During the evening and weekends, these numbers will connect you to the answering service to speak with the doctor engineer remote control diesel. Dr. Lorena Urbina After hours phone number: or toll free Ask the pressure tank operator to page the 'manager estate engineer remote control diesel.' Surgery Scheduling Office: Call the day before surgery after 2pm for your surgery arrival time PRE-OPERATIVE CHECKLIST: PATIENT INSTRUCTIONS PRIOR TO SURGERY Our guidelines have changed, so please read these instructions carefully. Your surgery may be cancelled if you do not follow these instructions. I have been instructed not to have any solid food to eat after midnight prior to my surgery (this includes no gum, mints, smoking). I am allowed to drink small amounts (up to 12 oz) of clear liquids up until 2 hours prior to my arrival time. Clear liquids include water, fruit juices without pulp, carbonated beverages (i.e. erum azul), electrolyte beverages (i.e. Gatorade), clear tea and black coffee, clear broth, popsicles and jello. (No milk). No alcohol the day before or day of surgery. MEDICATION STOPPAGE: Unless my surgeon tells me differently, I will STOP THESE MEDICATIONS 7 DAYS PRIOR TO SURGERY: (Motrin/ibuprofen/Naproxen/Aleve/Ad asif), Aspirin, vitamin E, herbal medications, diet pills, and oebi-svq-pcreomg medications. Tylenol (acetaminophen) is okay. I will not wear jewelry, body piercing(s), makeup, nail kenyan, hairpins, or contacts on the day of surgery. I am to leave valuables and money at home or with family members. If I am prescribed inhalers for breathing, I will use them and bring them to the hospital. Medication(s) to be taken on the morning of surgery with a few sips of water: If I am taking any of the following blood thinning medications - Aspirin, clopidogrel (Plavix), ticagrelor (Brilinta), prasugrel (Efficient), ticlodipine (Ticlid), warfarin (Coumadin), dibigatran (Pradaxa) or rivaroxaban (Xarelto) - I will discuss whether or not I should stop them before surgery with my surgeon. Discuss medication changes with your water system operator or primary care physician as well. If I stopped taking my blood-thinning medication, I will ask the surgeon when to resume taking it. If I am an outpatient, a responsible person will drive me home and it was suggested that someone stay with me for 24 hours. I understand that a business relationship manager or cabdriver is NOT a responsible caregiver. Patients with diabetes, I will not take my morning diabetes medication (pills) on the morning of surgery. If I am on insulin, someone has gone over those instructions with me for the morning of surgery. I understand if my surgery is delayed, I will notify the check in desk that I have diabetes. See the Diabetic Guidelines Before Surgery in the patient education section. If I have Obstructive Sleep Apnea and use a CPAP/BiPAP machine, I will bring my mask, tubing, and machine with me on the day of surgery. To find out my arrival time for surgery, I must call my ground operations supervisor after 2pm the day before surgery. PREOP INSTRUCTIONS THE DAY OF SURGERY/CHECK IN Report to DESK J1-9 for surgery. A map is located in Your Surgical Guide Book. The online version of the surgical guide book can be found at: [email or web address] The address is [address] [place] [address] INFECTION PREVENTION Please notify your doctor if you have any signs of an infection (i.e. fever, severe cough, nasal congestion, pain with urination, abnormal vaginal discharge, diarrhea, etc). Your surgeon will let you know if a bowel prep is needed before your surgery. If so, please see the attached instructions. Shower the night before surgery AND the morning of surgery with Hibiclens (provided by your surgeon). If you are allergic to Hibiclens or unable to obtain the Hibiclens, please wash with antibacterial soap. Wash your body from the neck down, focusing on your abdomen, belly button and external genitalia. Do not forget to scrub any skin folds and creases. No lotions, oils, creams, or powders after your shower. Underarm deodorant is okay. No shaving (abdominal or pubic hair) or douching the day before surgery. You may be asked to apply an antiseptic solution called Chlorhexidine Gluconate (CHG) which will be provided to you on arrival to the preop area. Hand washing is extremely important in preventing infection (for both you as the patient and for the caregivers). HOSPITALIZATION Before you leave the hospital, you typically need to be able to eat/drink, urinate, and have your pain controlled with oral medication. Your surgeon or other members of your surgeon s team will discuss any other specific medical issues related to your discharge with you. Your surgeon may order intermittent compression sleeves. These are massaging leg pumps to help prevent blood clots after surgery. See Your Surgical Guide Book for more information. It is also very important that you walk as soon as possible and as frequently as possible after surgery. This will help decrease your risk of blood clots, exercise your lungs and speed up your recovery after surgery. If you are admitted to the hospital overnight, you will be given an incentive spirometer, which is a breathing machine that will help make sure that you are taking deep breaths and expanding your lungs while in the hospital. See Your Surgical Guide Book for more information. [facility] TEAM At the [facility], we have a multidisciplinary team of caregivers that includes fellows, residents, nurse practitioners, physician assistants, clinical nurse specialists, nurses, medical assistants, patient care nursing assistants, social workers, caseworker intake and many others. We all have different roles and responsibilities but we are all here to help. UROGYNECOLOGY POSTOP INSTRUCTIONS ACTIVITY No heavy lifting/pushing/pulling for 4-6 weeks. Do not lift anything more than 10 lbs, vacuum, push heavy doors or grocery carts, etc. You may climb stairs as tolerated. Do not put anything in the vagina for 6 weeks after surgery unless otherwise instructed by your doctor (including tampons, douching, sexual intercourse, etc). No driving while you are taking narcotic pain medication, or until you feel that you are ready and can safely slam the brakes if needed. Avoid sitting or lying in bed for more than 2 hours at a time while you are awake to reduce your risk of blood clots. You may return to work when directed by your physician. Please contact your doctor if you need any return to work letters or medical leave paperwork to be completed. PAIN MANAGEMENT After you go home, you should take the prescribed acetaminophen (Tylenol) and ibuprofen (Motrin) as directed. These should be the first medications you use for pain. We recommend rotating the timing of these medications so that you are taking one of these medications every 3 to [address], you can help prevent pain. After the first 72 hours, you can take these medications as needed. Applying ice packs to your incisions (abdominal or vulvar/perineal) for 20 minutes as often as needed may also help. Some pain medications can cause constipation so you should take a stool softener (i.e. Colace) or laxative (i.e. Miralax) while you are on these medications (see the following section on constipation). You may have been prescribed an opioid medication, also known as a narcotic pill. These opiate medications have side effects like nausea or vomiting, constipation, and sleepiness. You should only take them if your pain is not controlled by ibuprofen and/or acetaminophen. It is important to keep this stronger pain medication safely stored, as it is at great risk of being stolen or misused by family, friends, or even strangers. Please be sure to dispose of leftover pain medication after you have recovered. You may dispose of unused narcotic medications in the trash with an unpleasant substance such as coffee grounds or cat litter. You can also check FDA.gov to assess which medications can be safely flushed down the toilet. There are locations to dispose of unused medications at three [facility] locations: [facility] pharmacy, [facility] pharmacy, and the Pharmacy at the [facility] for [facility] (inside the parking garage on the first floor). CONSTIPATION You may not have a bowel movement for 3-5 days after surgery. This is normal. To help prevent constipation after your surgery, you may receive prescriptions to take including the following: Colace (docusate sodium) 100 mg (1 capsule) two times a day Miralax (polyethylene glycol) 17 g (1 measured capful or 1 packet) once a day. If you have not had a bowel movement 3 days after surgery, you may take the Miralax two times a day. If you have any discomfort because of the need to have a bowel movement, you may add milk of magnesia or magnesium citrate (available at your local pharmacy without a prescription) at any time. Do not take milk of magnesia or magnesium citrate if you have kidney failure. If you have loose or watery stools, stop taking the medications and call your doctor s office. OTHER MEDICATIONS If you were prescribed vaginal estrogen, you should resume it in 7-10 days after surgery unless you were instructed otherwise. Please check your discharge instructions about when to resume other medications. WOUND CARE Shower daily after surgery. No tub baths until wound is completely healed. If you have any abdominal incisions, wash them daily with a mild antibacterial soap and water. Pat your incision dry with a clean towel. Wash your hands frequently, especially before touching your incision, changing any dressings, after using the restroom, and before eating. GLASS CATHETER CARE You may go home with a Glass catheter in your bladder. You will need to follow up for a nurse visit within 3-10 days for removal. You will be called by the office to get this appointment if it is not listed below. General Principles on Catheter Care: Always wash your hands with soap and water before handling your catheter tubing or bag. It is important to empty your catheter bag before it gets too full. Keep the catheter tubing free of kinks and Glass bag below the level of your bladder. Keep your genital region and catheter tubing clean. Instructions on Catheter Plug Use: A catheter plug is used to occlude the end of the catheter so that it can be disconnected from the drainage bag during the day. You may be sent home with catheter plugs. Your postop nurse will give you instructions on how to use the plug before going home. The Glass catheter must be disconnected from its drainage tubing and bag. The plug can then be inserted into the open end of the catheter. The plug should fit snugly. While the plug is in place, your bladder will fill with urine. You must empty your bladder by removing the plug and draining the catheter over the toilet at least every 3 to 4 hours, or sooner if you feel an urge to urinate. After you have drained the catheter, replace the plug. The catheter should be reconnected to the drainage bag at night so that your bladder can continuously drain while you are sleeping. The plug can be washed every night before bedtime with soap and water. Store it in a clean plastic Ziploc bag when it is not in use. You can continue daytime catheter plugging until your scheduled voiding trial. WHAT TO EXPECT AT HOME Recovery from surgery is generally 4 weeks, but sometimes longer for more strenuous activity. It is normal to be very tired during this time. It is normal to have some drainage or a small amount of vaginal bleeding after surgery which may last up to 6 weeks. It is normal to have some bruising around the vaginal opening or on the buttocks if you had a vaginal surgery or around your incisions if you had an abdominal or laparoscopic surgery. If you had a laparoscopic surgery, you may experience gas pain, abdominal swelling, or shoulder pain for 24-72 hours after surgery. A warm shower, heating pad, and/or walking may help. WHEN TO CALL YOUR DOCTOR: If you cannot urinate for 4 hours or are only able to urinate small amounts. Fever (>100.4 F or 38.0 C) or chills. Incision problems such as redness, warmth, swelling, or foul-smelling drainage. Severe nausea or persistent vomiting. Bright red vaginal bleeding (soaking >1 pad/hour) Foul smelling vaginal drainage (note that some vaginal discharge is normal) Severe pain not relieved with pain medication. Pain and swelling in your legs, especially if it is only on one side and not the other. Pain with urination, cloudy urine, or foul-smelling urine. Or if you have any other problems or questions. CALL 911 OR GO TO THE EMERGENCY ROOM IF YOU HAVE: shortness of breath, difficulty breathing, or chest pain. Please DO NOT use MyChart for post-surgery concerns. documented in this encounter [facility] 10-26-2022 History of Present illness Narrative DATE OF SERVICE: 11/03/2022 PROBLEM: Uzma Duran presents for pre-op teaching. PRE-OP DIAGNOSIS: vaginal vault prolapse and cystocele midline SCHEDULED SURGERY AND DATE: 11-16-22 [facility] ROBOTIC LAPAROSCOPIC COLPOPEXY with or without robot, CYSTOSCOPY, REPAIR RECTOCELE, and SUSPENSION BLADDER SLING PRIMARY SURGEON: Lorena Urbina MD NURSING PREOP ASSESSMENT: Fevers, chills, cough, or nasal congestion: No Vaginal itching, burning, discharge, or odor: No Pain with urination, frequency, urgency, cloudy or foul smelling urine: No If yes to any of the above then MD notified: Not Applicable ADVANCED CARE PLANNING: Does the patient have an advanced directive: No Does [facility] have a copy of the patient's advanced directive: No Was advanced directive given to the patient: No PATIENT LEARNING ASSESSMENT: Individual patient/family learning needs evaluated and addressed: Yes Cognitive ability: Alert and oriented Motivation to learn: Interested Factors affecting learning: None Physical limitations affecting learning: None Patient learns best by: Multiple Methods Method of instruction: Individual instruction Instructions provided to: Patient via telephone. Written material provided prior to education appointment. Family support: High - Very involved in pt care PRE- AND POST-OPERATIVE TEACHING Pre-operative teaching and supplemental material provided and reviewed with patient: Written pre-op and post-op instructions Antibacterial soap: patient will buy Pre-operative instructions provided and reviewed with patient/family: No eating, drinking, or smoking after midnight prior to surgery unless otherwise directed No alcohol the day before surgery Medications as prescribed by anesthesia, internal medicine, surgeon, or BUNDLE BREAKER Stop NSAIDs, Aspirin (ASA), vitamins, herbal supplements, herbal teas, and diet pills 7-10 days prior to surgery OK to take tylenol prn pain unless otherwise directed by physician Call surgery coordinators if any other questions about surgery date or pre-op appointments Bowel prep instructions: NPO after midnight Day of surgery instructions provided and reviewed with patient/family: Arrival time (call surgical coordinators on the office day prior to surgery for verification) No jewelry, body piercing, makeup, contacts, lotions, nail kenyan on fingers, or anything in hair on arrival to surgery Wear low healed shoes and loose fitting clothing Leave all valuables at home or with a family member Directions to [facility] Parking/parking validation on the day prior to surgery Admission/check in (Report to DESK J1-9 for surgery) Holding area Placement of IV Surgical positioning Family waiting area Surgical recovery room Post-operative instructions provided and reviewed with patient/family: SEE PATIENT INSTRUCTION SECTION FOR DETAILS. SYMPTOMS TO NOTIFY MD - Fever, chills, nausea, vomiting, increased or severe pain, heavy vaginal bleeding, foul smelling vaginal drainage, pain or swelling in extremities. URGENT SYMPTOMS - Call 911 or go to ER if any shortness of breath, difficulty breathing, or chest pain. HOW TO CONTACT PHYSICIAN - Physician's office phone number given to patient, if after hours patient instructed to call pressure tank operator and ask for engineer remote control diesel manager estate resident. AARON program offered to patient: Yes Additional teaching as indicated by patient/family learning needs. PATIENT LEARNING EVALUATION & FOLLOW UP PLAN: Patient and/or family express understanding of upcoming surgery, pre-operative preparation, the operative process, and post-operative instructions. Follow up plan: Patient instructed to call with any further issues Patient has a post-op appointment scheduled: Yes 12-28-22 at 1:45pm with Harley Hoffman Referral (recommentation): None Educator: Cierra Cobos LPN [facility] documented in this encounter [facility] 07-04-2022 Instructions Naomi Trejo MD - 07/04/2022 8:35 AM EDT Images from the original note were not included. Your most recent body mass index (BMI) that we have on record is 27.93 kg/m2. Obstructive sleep apnea (MARCY) worsens with an increase in weight; reduction in weight may improve or resolve your MARCY. If you are not already seeking treatment, there are resources available at the [facility] such as a nutrition consultation or referral to weight management programs at our [facility] [place]. Please let us know if we can assist with a referral. ALTERNATIVE TREATMENT OPTIONS FOR OBSTRUCTIVE SLEEP APNEA Positional therapy is where you use a device to stay on your side. The devices include a simple wedge pillow, MedClinePillow, Slumber Bump or REM-A-Carson, and can be found on line and at [employer]. There are electronic positional therapy trainers available that track when you are sleeping on your back, and help train you to reposition. These include Night Balance by Ijeoma and Strainer Cleaner Positional Broacher. Maintenance of normal weight will benefit sleep apnea: A Nutrition consult or BMI [facility] [place] Consult can be ordered for help in this area. For dental appliance: If you are considering a dental appliance for treatment of mild to moderate sleep apnea, please refer top the list below. Call and schedule an appointment. [facility] Dentistry All new appointments are at [facility]. Follow-ups can be at [facility] or [place] Rodri Benoit D.M.D. Garima Molina D.D.S. Examples of a few possible types of dental appliances are listed below Somnomed Alysha [email or web address] Somnomed Mirtha Somnomed Flex Prosomnus [email or web address] For surgical options and/or INSPIRE Rahul Tobar MD For Your Insomnia: Good Sleep Hygiene 1. Wake up at the same time every day, even on the weekends. 2. Use your bed for sleep and intimacy only. 3. If you have been in bed awake for 30 minutes, get up and leave the bedroom. Choose a dull activity not involving a blue screen (TV, computer, handheld devices). Go back to bed when you feel sleepy. 4. Avoid caffeine, nicotine and alcohol before you go to bed. 5. Avoid large meals before you go to bed. 6. Exercise regularly, but do not exercise right before you go to bed. 7. Avoid daytime naps. If you do take a nap, sleep for 20-40 minutes, and not after dinner. Patients with insomnia may associate their bed and bedroom with the fear of not sleeping or other arousing events, rather than the more pleasurable anticipation of sleep. The longer one stays in bed trying to sleep, the stronger the association becomes. This perpetuates the difficulty falling asleep. Stimulus control therapy is a strategy whose purpose is to disrupt this association by enhancing the likelihood of sleep . Patients should not go to bed until they are sleepy and should use the bed primarily for sleep (and not for reading, watching television, eating, or worrying). They should not spend more than 20 minutes in bed awake. If they are awake after 20 minutes, they should leave the bedroom and engage in a relaxing activity, such as reading or listening to soothing music. Patients should not engage in activities that stimulate them or reward them for being awake in the middle of the night, such as eating or watching television. In addition, they should not return to bed until they are tired and feel ready to sleep. If they return to bed and still cannot sleep within 20 minutes, the process should be repeated. An alarm clock should be set to wake the patient at the same time every morning, including weekends. Daytime naps are not allowed GO! to Sleep Instructions Your health care provider has recommended GO! to Sleep, a six-week online program developed by experts at the [facility]. GO! to Sleep follows a similar treatment plan to those used at the [facility] and other [facility] sleep clinics. How It Works The program uses proven methods to help you improve your sleep from the comfort and privacy of your own home. A recent study in the journal SLEEP found that 81 percent of patients who completed a five-week online program for insomnia reported improvement in sleep. What You Get Starting in Lesson 1, you will begin keeping a daily online sleep log. Each day after you fill out your log, you will get a sleep score. Based on your sleep log information and sleep score, you will receive individualized feedback and daily sleep-improvement recommendations. In addition, you will learn the basic science of sleep and why certain behaviors can be detrimental to your sleep. You will also be given activities to help you get the sleep you need, educational articles to help you get the most out of the program, motivational tips, and personalized progress charts. Plus, you will receive six specially crafted audio relaxation practices that will help you manage stress and improve your sleep. Who It's For GO! to Sleep was designed for those experiencing short-term insomnia (development of insomnia in the past one to six months) as well as people with ongoing difficulties with insomnia (six months or longer). If you use sleep medication on an occasional basis, the program will help you learn techniques that will likely help you sleep better without medication. Although GO! to Sleep was not designed for people who take prescription sleep medications on a nightly basis, you can follow the program while on sleep medication and learn tools to help you discontinue medication use. However, the program is not intended to help you implement a plan specifically to taper off your medication. If you are looking for this type of help, discuss this with your prescribing provider and/or ask for a referral to the [facility] for further assessment and an individualized treatment plan. Additionally, if you feel that depression, anxiety or a recent traumatic event may be causing or contributing to your poor sleep, you may want to consult with a mental health professional. The [facility] offers sleep specialists who can help patients taper off medications as well as mental health experts who can help with contributing factors of insomnia. For additional information about this option, call [phone]. The program in on the URL: https://Recommendi.Crowdmark with the specific link being: https://Geoforce.Floqq/collections/online-programs/p hakanucts/ya-bq-jskjz-online - Avoid driving when drowsy. Recommend that if you are dozing off while driving, that you do not drive until your sleepiness is appropriately treated. The best way to communicate with our office is My Chart. If you have not already done so; you can sign up for my chart by providing an e-mail address to our office staff. If you do not use My Chart, then we will call you with results. documented in this encounter [facility] 07-04-2022 History of Present illness Narrative Images from the original note were not included. [facility] New Patient Evaluation This is a virtual visit PATIENT NAME: Uzma Duran DATE OF SERVICE: July 04, 2022 CONSULTING PROVIDER: Lin Morin [address] [facility] [address] REASON FOR CONSULT: Lin Morin sends the patient for an opinion about sleep apnea. My findings and recommendations will be transmitted electronically via shared medical record to the consulting provider. Individuals who were included in, or assisted with the encounter were: MD Uzma Her I have communicated my name and active licensure. The patient s identity and physical location were verified at the time of this visit. Either the patient or their legal surgical sales representative has been informed of the risks and benefits of -- and alternatives to -- treatment through a remote evaluation and consents to proceed with the evaluation remotely. ? New Patient: I m Dr Naomi Trejo , I m a licensed - sleep medicine physician. I want to confirm your location in [place]. Virtual visits are a convenient way for us to meet for the first time, but there are some situations in which an in-person evaluation may be required at a later time. I want to check in to confirm your consent to be seen virtually today. HPI: Uzma Duran is a 76 year old female. Sleep-related history: Known h/o MARCY diagnosed with PSG performed in [facility] by Dr. Victor. Was a conference and sharing the room with a colleague who witnessed snoring and apneic pauses. Has observed residual snoring while wearing device. Was unable to tolerate CPAP. Found the sound to be disturbing, is a 'restless' sleeper, tried various mask interfaces. Since then been using the dental device. Had recent home sleep apnea test- did not wear MAD on the night of the study. Has trouble falling back to sleep , estimates reduced and fragmented sleep on the night of the test, Does not have sleep onset issues routinely. Takes melatonin 2-3 times per week, helps her relax and helps with sleep reintiation. Past medical history: MARCY diagnosed at an outside facility approximately 5 years ago, Hyperlipidemia, Hypertension, Insomnia SLEEP-WAKE SCHEDULE She is a self-described night person. Bedtime: 11.30 PM. She does not have a hard time falling asleep. Sleep onset latency 15 min Wake time: 7.30 AM, without an alarm. After falling asleep: she wakes up 1-2 time(s) per night, because of the need to urinate. Then she is unable to fall back to sleep. Tends to stay in bed, does not turn on electronics. On weekends, she maintains the same sleep schedule. Average total sleep time (in a 24 hour period): 5 hours. She does not take naps. SLEEP-RELATED DETAILS Preferred sleep position: side or back, 3 pillows Breathing disturbances and other behaviors during sleep: snoring and moving around a lot. Bruxism: No GERD or aspiration: No Waking up with heart pounding or racing: No Anxiety or rumination: No She does not report having an urge to move the legs in the evening (when resting) that is accompanied or caused by uncomfortable and/or unpleasant sensations in the legs. She has not been told that she has leg kicking during sleep. She denies any history of parasomnias. Daytime sleepiness is not a problem. She does not report sleep paralysis or sleep-related hallucinations or cataplexy. WAKE-RELATED DETAILS She does work, remotely She does not have difficulty with memory or concentration. May have some difficulty with names. She denies falling asleep or dozing off when driving. She does not drink caffeinated beverages. Has decaf tea. There has not been a recent change in weight. Patient Questionnaires Sleep Scores Sleep Questions 07/03/2022 Reason for visit: Sleep apnea, Difficulty falling or staying asleep or poor sleep quality Average hours slept in 24 hours: 7 Accidents or near accidents due to drowsy drivin [place] Sleepiness Scale 03/06/2022 07/03/2022 Score 3 (No daytime sleepiness) 3 (No daytime sleepiness) PROMIS CAT Sleep Disturbance 03/06/2022 07/03/2022 PROMIS Sleep Disturbance T-Score 59 (mild) 56 (mild) PROMIS Sleep Disturbance Percentile 18 % 27 % Insomnia Severity Index 03/06/2022 07/03/2022 Score 16 14 PHQ-9 03/06/2022 07/03/2022 Score 2 3 PROMIS Global Health - (T-Scores - the mean of general population = 50. Five points is a clinically meaningful difference.) 03/06/2022 07/03/2022 Physical T-Score 54.1 54.1 Mental T-Score 56 53.3 PAST TREATMENTS: AutoPAP, MAD Prior Insomnia Medications (last 20 years) Some values may be hidden. Unless noted otherwise, only the newest values recorded on each date are displayed. Insomnia Medications No data to display. PRIOR SLEEP STUDIES: A Home Sleep Test (HST) performed on 05/10/2022 revealed an AHI of 9.6; supine index of 12.0; and a minimum oxygen saturation of 81%. (Recalls previous PSG- was severe MARCY with oxygen basilia of 72%) OTHER RELEVANT LABS AND STUDIES: No results found for: TAIWO PAST MEDICAL HISTORY Diagnosis Date Mixed hyperlipidemia Sleep apnea PAST SURGICAL HISTORY Procedure Laterality Date TOTAL ABDOM HYSTERECTOMY There is no problem list on file for this patient. Allergies As of Date: 07/04/2022 Allergen Noted Reaction PENICILLINS 02/01/2022 Rash reviewed none CURRENT MEDICATIONS: atorvastatin (LIPITOR) 20 mg tablet Take by mouth q 24 HR. estradiol (ESTRACE) 0.01 % (0.1 mg/gram) vaginal cream Apply 1 pea-sized amount of cream into the lower vagina with fingertip every night for 2 weeks then 3 times weekly. Review of Systems No c/o recent fevers, malaise No c/o chest pain or palpitations No c/o shortness of breath No c/o nausea, vomiting SOCIAL HISTORY: Social History Tobacco Use Smoking status: Never Substance Use Topics Alcohol use: Yes Alcohol/week: 3.0 standard drinks Types: 3 Glasses of wine per week Drug use: Never FAMILY HISTORY: No family history on file. There is a family history of: Restless Legs Syndrome. Relative: siblings PHYSICAL EXAMINATION: General appearance: well groomed, pleasant, cooperative Mental status: alert, awake, oriented Neck: no goiter visible Constitutional: NL Skin: NL Eyes: conjunctivae/corneas clear, anicteric sclera, EOMI ENT : External ears normal. Nasal congestion absent, Nasal valve incompetence absent. Posterior airspace: Pimentel tongue position 3, retrognathia absent. Overbite absent. High arched palate absent. Tongue scalloping/ridging absent. Uvula: limited view Dentition: nl Neuro: NL CN, no tremors Psych: NL mood and affect IMPRESSION/PLAN: G47.33 MARCY (obstructive sleep apnea) (primary encounter diagnosis) Z78.9 Difficulty with CPAP use F51.04 Chronic insomnia F51.04 Psychophysiological insomnia Discussed the home sleep test results -Discussed the pathophysiology of obstructive sleep apnea -Untreated sleep apnea is associated with a variety of consequences, including, but not limited to hypertension, heart disease, stroke, obesity, and daytime sleepiness that can affect normal daytime functioning. Because of these consequences, treatment of sleep apnea is recommended. -Treatment options for sleep apnea, including positive airway pressure (PAP) therapy, surgery, oral appliance and conservative measures (avoidance of alcohol, sedative medications and sleeping in the back position, management of nasal obstruction and weight loss) She would like a new dental device, will provide a referral to optimize MAD therapy -Counseled in regards to CPAP therapy. Is not keen to revisit CPAP. Also is not keen on alternative therapies - has heard of Inspire. Ms. Duran has been suffering from sleep fragmentation and difficulty reinitiating sleep with reduced sleep duration for several years.Discussed hyperarousal state and underlying causes of insomnia. Suspect untreated sleep apnea and psychophysiological component are contributing factors. In addition predisposing factors include age, gender. Counseled in regards to the role of cognitive behavioral therapy and management of chronic insomnia, we discussed role of sleep restriction, good sleep hygiene measures and relaxation techniques. Start Go to Sleep! which is a 6 week online program for cognitive behavior therapy for insomnia. The cost is $40. Use www.New Travelcoo which to access the [facility] Wellness website to purchase the program ( go to Shop, and then Wellness Programs, and the find the Go! To Sleep product). -Target sleep duration 7-9 hours is recommended for adults - Avoid driving when drowsy. Recommend that if you are dozing off while driving, that you do not drive until your sleepiness is appropriately treated. Follow up in 3 months in the office. Recommend scheduling this appointment now to ensure the best time for you. [facility] on 07/04/22 CONSULT TO DENTISTRY CONSULT TO GO! TO SLEEP Naomi Trejo MD I spent a total of 42 minutes on the date of the service which included preparing to see the patient, [id number] patient care, performing a medically appropriate examination, counseling and educating the patient/family/caregiver and ordering medications/devices. documented in this encounter [facility] 07-04-2022 Nurse Note Spoke with patient regarding upcoming virtual visit with provider. The following information was provided. Reason for visit. discuss sleep study results Patient questionnaire completed. no - patient was advised this must be completed prior to the visit E-check in completed. no - patient was advised this must be completed prior to the visit Blood pressure: 142/80 mmHg on Height: 5'0 Weight: 140 lbs (self-reported). Allergies reviewed.Yes Insurance verified.Yes Medications have been reviewed/reconciled, and pharmacy has been verified.Yes Is the patient using PAP therapy (CPAP/BiPAP)? No - other therapies being used (if any): NOT ON PAP Name of PAP machine. other N/A PAP download status - other N/A Is patient transferring care from another Sleep Center provider? No: Are there any external records from a previous sleep provider that need to be provided prior to visit? For new patients, this includes any sleep testing records and a recent chart note from outside provider managing Sleep Disorder. No External medical records have been uploaded to patient's chart. no - patient was advised this must be completed prior to the visit Informed patient that any data from health apps (Sleep health apps - Boostable, [employer], [employer], etc.) can be uploaded to [employer] by attaching the image; and that the image would be available in scanned documents section of Naytev. Velasquez Franco [employer] documented in this encounter [facility] 06-30-2022 History of Present illness Narrative Follow up HTN Patient presents for periodic surveillance of chronic medical problems. Subjective Uzma Duran is a 76 y.o. female who presents for Follow-up. HPI Mrs Duran presents for followup hypertension. She had been on amlodipine and had some swelling with that. Now on lisinopril, working well, has developed a dry hacky cough. BMP reviewed and okay. We discussed switching to losartan, cough should resolved, and followup bp check in a month. Has noticed some drooling at time in corners of mouth. States mentioned to her dentist and he/she felt it was a normal variant, more common with aging. Adivsed same. Has had leg cramps in both legs at times, worse when stretched out in recliner. Discussed hydration, and some people find benefit with tonic water, calcium/magnesium supplements. No swelling. Review of Systems. Objective Visit Vitals BP 130/78 (BP Location: Left arm, Patient Position: Sitting) Pulse 76 Physical Exam Assessment/Plan Problem List Items Addressed This Visit Circulatory Hypertension Relevant Medications losartan (Cozaar) 50 mg tablet Other Relevant Orders CBC and Auto Differential Comprehensive Metabolic Panel Lipid Panel TSH with reflex to Free T4 if abnormal Urinalysis Microscopic Only Albumin , Urine Random Vitamin B12 Hemoglobin A1C Musculoskeletal Osteoporosis Relevant Orders Vitamin D, Total Other Elevated glucose Relevant Orders Hemoglobin A1C Other Visit Diagnoses Routine general medical examination at health care facility - Primary Need for vaccination Relevant Orders Pneumococcal conjugate vaccine 20-valent IM Drooling Leg cramps Cyndi Horn MD documented in this encounter [facility] Work Phone: 06-30-2022 Instructions Cyndi Horn MD - 06/30/2022 9:00 AM EDT BP check in a month, followup in January with labs prior documented in this encounter [facility] Work Phone: 06-27-2022 Miscellaneous Notes Spoke with patient and gave her the date and time for Admit & PACC appts Spoke with patient and rescheduled UDS/consent appt, scheduled other pre op appts & post op appts, except Admit, PACC & lab because PACC schedule is not available yet, will schedule once available Patient called the office regarding June 07 pre op appointment. She requests to speak to ground operations supervisor because her surgery was moved to October and was advised by the surgical team all the appointments related to her surgery would be scheduled or rescheduled for Oct. Contact number [phone] Gayle Adm documented in this encounter [facility] 06-12-2022 History of Present illness Narrative [facility] [employer]UMINUM BOAT INSPECTOR & [facility] IRB#: [id number] Study title: Are Virtual Visits for Delivery of Postoperative Care Following Urogynecologic Surgery Equal to Office Visits? The VIDEO Randomized Trial. Purse Seiner: Susan Frias M.D. [facility] INFORMED CONSENT Inclusion and exclusion criteria reviewed and confirmed by Claudine Beal MD MPH. Discussed study protocol and potential risks/benefits, treatment alternatives, data confidentiality measures, participant compensation, and follow up with patient/family. The patient states understanding and has agreed to participate and have the informed consent form emailed to her. DocuSign discussed and the patient is agreeable to proceed with that method of consent. Date and time: 06/12/2022 2:55:12 PM The patient read the informed consent and verbalized her understanding. All questions were answered. DocuSign sent and signed by the patient and myself. Patient has received a fully executed copy of the ICF via [employer]. Date and Time: The Patient Preparedness Questionnaire will be emailed via [employer] after her preop appointments are completed. (10/18/[address] Urbina, and 10/19/22 with RN) Patient prefers a text message to remind her of her 6- week postoperative visit. Patient prefers [employer] e-mail questionnaires for postoperative visit. Patient prefers a text message for reminders to complete study questionnaires. Patient is randomized to the TBD- will get randomized on 10/19/22 . Patient notified of randomization? Patient will be notified on 10/19/22. . Patient's post op appointment changed? NA. Date of surgery is November 02, 2022. Claudine Beal MD 3:46 PM June 12, 2022 documented in this encounter [facility] 06-01-2022 History of Present illness Narrative Discuss amlodipine; had swelling in feet and ankles; stopped taking 3-4D ago Subjective Uzma Duran is a 76 y.o. female who presents for Hypertension and Foot Swelling. Eddie Gusman presents for followup hypertension. Had recently started amlodipine . Developed new ankle swelling. She stopped the medicine a few days ago and swelling has resolved. Recommend replace with lisinopril 10 mg Side effects discussed including cough and angioedema. Recommend followup 1 mos, labs prior. Discussed Prevnar 20, shes going to check with [facility] to see if she might have gotten it there. Review of Systems All other systems reviewed and are negative. . Objective Visit Vitals BP 144/78 (BP Location: Left arm, Patient Position: Sitting) Pulse 76 Physical Exam Vitals and nursing note reviewed. Constitutional: General: She is not in acute distress. Appearance: Normal appearance. She is not toxic-appearing. HENT: Head: Normocephalic and atraumatic. Cardiovascular: Rate and Rhythm: Normal rate and regular rhythm. Heart sounds: No murmur heard. Pulmonary: Effort: Pulmonary effort is normal. Breath sounds: Normal breath sounds. Musculoskeletal: Cervical back: Neck supple. No rigidity. Right lower leg: No edema. Left lower leg: No edema. Comments: Neurological: General: No focal deficit present. Mental Status: She is alert and oriented to person, place, and time. Psychiatric: Mood and Affect: Mood normal. Behavior: Behavior normal. Assessment/Plan Problem List Items Addressed This Visit Circulatory Hypertension Relevant Medications lisinopril 10 mg tablet Other Relevant Orders Follow Up In Primary Care Follow Up In Primary Care Basic Metabolic Panel Other Visit Diagnoses Routine general medical examination at health care facility - Primary Cyndi Horn MD documented in this encounter [facility] Work Phone: 06-01-2022 Instructions Cyndi Horn MD - 06/01/2022 11:00 AM EDT Follow up one month, labs prior. Call concerns. documented in this encounter [facility] Work Phone: 03-07-2022 Instructions Lin Morin MD - 03/07/2022 5:02 PM EST Obstructive Sleep Apnea (MARCY): - Obstructive sleep apnea is a serious sleep disorder that occurs when a person's breathing is interrupted during sleep. People with untreated sleep apnea stop breathing repeatedly during their sleep, sometimes hundreds of times during the night. - If left untreated, obstructive sleep apnea can result in a number of health problems including hypertension, heart attack, stroke, arrhythmias, cardiomyopathy (enlargement of the muscle tissue of the heart), heart failure, diabetes, obesity, and dementia. - It can also cause excessive daytime sleepiness/fatigue, unrefreshing sleep, frequent awakenings from sleep, mood disturbance, memory and concentration issues. - Will order HSAT (home sleep apnea test) to reassess sleep apnea severity. - Will do 2-3 week follow up (virtually) after study has been done to discuss results and plan. Persistent Insomnia (difficulties falling or staying asleep): - Consult to behavioral sleep medicine for cognitive behavioral therapy for insomnia (CBTi) for penitentiary treatment of insomnia. - Please call [phone] to schedule HSAT, 2-3 week follow up after study is done, and evaluation with behavioral sleep medicine for treatment of insomnia. Treatments for obstructive sleep apnea Positive Airway Pressure (PAP) therapy - machine that is attached to a hose and mask that delivers pressurized room air to the nose and/or mouth to help keep the airway open during sleep - considered first line treatment for patients with moderate to severe MARCY - also first line treatment for patients with mild MARCY who have a comorbid condition (hypertension, ischemic heart disease, heart arrhythmias, history of stroke, or mood disorder) or daytime symptoms including excessive daytime sleepiness/fatigue or memory/concentration issues - may require several weeks/months to acclimate to device - at least yearly follow ups with sleep provider for compliance checks Oral Appliance (Mandibular Advancement Device - MAD) - dental device that fits over the upper and lower teeth that positions the lower jaw and tongue forward to help open the airway - considered first line treatment for patients with mild MARCY who have a comorbid condition (hypertension, ischemic heart disease, heart arrhythmias, history of stroke, or mood disorder) or daytime symptoms including excessive daytime sleepiness/fatigue or memory/concentration issues - alternative therapy for patients with moderate or severe MARCY who do not tolerate or refuse to trial PAP therapy - custom made by dental sleep medicine dentists, requiring several months of adjustments and a follow up sleep study to determine effectiveness - at least yearly follow ups with dentist for compliance checks and bite changes Hypoglossal Nerve Stimulator (Inspire Therapy) - implanted impulse pattern generator (IPG), which looks similar to a pace maker that lightly stimulates the tongue to move forward and opens the airway with every breath to prevent obstruction - alternative therapy for patients with moderate to severe MARCY who have been unable to tolerate PAP therapy - general requirements: BMI < 32-35 (depending on insurance), AHI 15-65, PAP therapy trial of at least 3 months - requires further evaluation and testing by ENT surgeon before approval - frequent follow ups after implant to acclimate to device and determine proper settings for optimal stimulation - follow ups at least every 6 months once stable Upper Airway Surgery - various nose/throat surgeries to help clear and enlarge airway - alternative therapy that is generally considered after one or more of the other treatment options have been unsuccessful - requires evaluation by ENT to determine possible surgical strategies Conservative Measures - weight loss, side sleeping (positional therapy), treatment of nasal congestion, or avoidance of medications/substances that can relax the airway muscles (alcohol, benzodiazepines, and opioids) - used in conjunction with other treatment options above, or for patients with very mild MARCY who do not have any comorbid medical conditions or daytime symptoms TIPS FOR A BETTER NIGHT OF SLEEP BEFORE GETTING INTO BED: -Establish a regular routine for bedtime. -Create a positive sleep environment. -Relax before getting into bed. -Avoid alcohol, smoking, caffeine for at least a few hours before bedtime. -Do not go to bed unless you are sleepy. WHILE IN BED: -Turn your clock around (or cover it) and use your alarm if needed. - If you can't fall asleep in 20 minutes (based on your internal sense of time), get out of bed and do something relaxing or boring (reading, listening to music, etc). Return to bed only when sleepy. -Use your bed only for sleep and sex. IN THE MORNING AND DURING THE DAYTIME: -Wake up at the same time every morning, even on weekends. -Avoid naps during the day. -Avoid caffeinated beverages and food in the evening. -Exercise regularly but not within 4 hours of bedtime. documented in this encounter [facility] 03-07-2022 History of Present illness Narrative Spoke with patient regarding upcoming virtual visit with provider. The following information was provided. Reason for visit. other SLEEP APNEA, DENTAL MOUTH PIECE BUT PATIENT STILL SNORE Patient questionnaire completed. no - patient was advised this must be completed prior to the visit E-check in completed. no - patient was advised this must be completed prior to the visit Blood pressure: 142/82 mmHg on 02/01/2022 Height: 5FT Weight: 138 lbs (self-reported). Allergies reviewed.Yes Insurance verified.Yes Medications have been reviewed/reconciled, and pharmacy has been verified.Yes Is the patient using PAP therapy (CPAP/BiPAP)? No - other therapies being used (if any): NO PAP Name of PAP machine. other N/A PAP download status - unavailable (no DME supplier) Is patient transferring care from another Sleep Center provider? No: Are there any external records from a previous sleep provider that need to be provided prior to visit? For new patients, this includes any sleep testing records and a recent chart note from outside provider managing Sleep Disorder. No External medical records have been uploaded to patient's chart. no - patient was advised this must be completed prior to the visit Informed patient that any data from health apps (Sleep health apps - FitBit, [employer], [employer], etc.) can be uploaded to [employer] by attaching the image; and that the image would be available in scanned documents section of [employer]. Donna Hoyt MA Images from the original note were not included. [facility] New Patient Evaluation PATIENT NAME: Uzma Duran DATE OF SERVICE: March 07, 2022 CONSULTING PROVIDER: No referring provider defined for this encounter. REASON FOR VISIT: MARCY HPI: Uzma Duran is a 76 year old female. Sleep-related history: History of severe MARCY. PSG done in [place], [place] - about 5 years ago. Tried to use PAP therapy, unable to tolerate. Treated with MAD by Dr. Victor. Reports continued snoring. Takes melatonin 10mg (Natrol). Has been taking for last 6 months. Does help with her falling asleep. Referred by Karena and Shahriar Coy. SLEEP-WAKE SCHEDULE Bedtime: 11:30 PM. She falls asleep within 20-30 min. Wake time: 7:30 AM After falling asleep: she wakes up 1 time(s) per night, because of the need to urinate. Then she is unable to fall back to sleep. Average total sleep time (in a 24 hour period): 5 hours. SLEEP-RELATED DETAILS Preferred sleep position: back and side - with 3 pillows Breathing disturbances and other behaviors during sleep: snoring and stopping breathing during sleep. She does not report having an urge to move the legs in the evening (when resting) that is accompanied or caused by uncomfortable and/or unpleasant sensations in the legs. She has not been told that she has leg kicking during sleep. She denies any history of parasomnias. Daytime sleepiness is not a problem. WAKE-RELATED DETAILS She does not work. She does not have difficulty with memory or concentration. She denies falling asleep or dozing off when driving. She does not take naps. She does not drink caffeinated beverages regularly. No tobacco use. Patient Questionnaires Sleep Scores Sleep Questions 03/06/2022 Reason for visit: Sleep apnea Average hours slept in 24 hours: 5 Accidents or near accidents due to drowsy drivin [place] Sleepiness Scale 03/06/2022 Score 3 (No daytime sleepiness) PROMIS CAT Sleep Disturbance 03/06/2022 PROMIS Sleep Disturbance T-Score 59 (mild) Insomnia Severity Index 03/06/2022 Score 16 PHQ-9 03/06/2022 Score 2 PROMIS Global Health - (T-Scores - the mean of general population = 50. Five points is a clinically meaningful difference.) 03/06/2022 Physical T-Score 54.1 Mental T-Score 56 PAST MEDICAL HISTORY Diagnosis Date Mixed hyperlipidemia Sleep apnea PAST SURGICAL HISTORY Procedure Laterality Date TOTAL ABDOM HYSTERECTOMY There is no problem list on file for this patient. Allergies As of Date: 03/07/2022 Allergen Noted Reaction PENICILLINS 02/01/2022 Rash reviewed none CURRENT MEDICATIONS: atorvastatin (LIPITOR) 20 mg tablet Take by mouth q 24 HR. estradiol (ESTRACE) 0.01 % (0.1 mg/gram) vaginal cream Apply 1 pea-sized amount of cream into the lower vagina with fingertip every night for 2 weeks then 3 times weekly. SOCIAL HISTORY: Social History Tobacco Use Smoking status: Never Substance Use Topics Alcohol use: Yes Alcohol/week: 3.0 standard drinks Types: 3 Glasses of wine per week Drug use: Never FAMILY HISTORY: No family history on file. There is no family history of sleep disorders. PHYSICAL EXAMINATION: PHYSICAL EXAM: Via video conferencing General appearance: NAD Mental status: normal Neurological: Alert, well-oriented. No language deficits noted. Cranial nerves 2-12 grossly normal and symmetric. IMPRESSION/PLAN: G47.00 Persistent insomnia (primary encounter diagnosis) G47.33 MARCY (obstructive sleep apnea) Reportedly severe MARCY, treated with MAD, never tested with MAD in place to determine effectiveness. Needs updated study. - HSAT (home sleep apnea test) to reassess severity and presence of sleep apnea. - Based on sleep apnea severity, will consider PAP alternatives. Persistent insomnia - difficulties staying asleep. - Consult to [facility] for CBTi - discussed sleep tips as well. - Okay to continue melatonin for now. Perceives some benefit without adverse reactions. I spent a total of 40 minutes on the date of the service which included preparing to see the patient, [id number] patient care, completing clinical documentation, obtaining and/or reviewing separately obtained history, performing a medically appropriate examination, counseling and educating the patient/family/caregiver, and ordering medications, tests, or procedures. 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 Cystocele, midline N81.11 SURGICAL REQUEST - ELECTIVE (09/2019) IN PERSON CONSULT TO [facility] CBC + DIFF BASIC METABOLIC PNL TYPE AND SCREEN,30 DAY 3. Pre-op testing Z01.818 IN PERSON CONSULT TO [facility] CBC + DIFF BASIC METABOLIC PNL TYPE AND SCREEN,30 DAY Nury Sharif APRN.IRENE documented in this encounter [facility] 01-27-2022 History of Present illness Narrative Uzma presents for concerns of elevated blood pressure.She was here in January for check up, was elevated initially, and then normal on repeat . Went to dentist two days later and had two elevated readings.She feels fine. She hasn't been exercising as much as she normally does. She has known severe sleep apnea, she chose to treat with a dental appliance. Hasn't been working well, and saw sleep specialist at two days ago. They are in the process of ordering a new appliance for her. Has had some mild ankle edema as wellDiscussed the role of sleep apnea in elevated bp. Discussed risks of untreated hypertension . Recommend based on meeting criteria for htn, we treat, side effects discussed. She is leaving for [place] for two months next week,so will monitor with her home bp cuff and fup in office when they get back. [facility] Work Phone: Evaluation note Diagnosis Mallet finger, right- Primary documented in this encounter [facility] note* Diagnosis Vaginal vault prolapse- Primary Unspecified prolapse of vaginal maki Cystocele, midline Pre-op testing Preoperative examination, unspecified [facility]* Diagnosis Persistent insomnia- Primary Persistent disorder of initiating or maintaining sleep MARCY (obstructive sleep apnea) Obstructive sleep apnea (adult) (pediatric) documented [facility]* Diagnosis Routine general medical examination at health care facility- Primary Routine general medical examination at a health care facility Primary hypertension Unspecified essential hypertension documented in this encounter [facility] Work Phone: Evaluation note* Diagnosis Routine general medical examination at health care facility- Primary Routine general medical examination at a health care facility Primary hypertension Unspecified essential hypertension Need for vaccination Need for prophylactic vaccination and inoculation against unspecified single disease Drooling Other facial nerve disorders Leg cramps Cramp of limb Elevated glucose Other abnormal glucose Age-related osteoporosis without current pathological fracture documented in this encounter [facility] Work Phone: Evaluation note* Diagnosis MARCY (obstructive sleep apnea)- Primary Obstructive sleep apnea (adult) (pediatric) Difficulty with CPAP use Chronic insomnia Insomnia, unspecified Psychophysiological insomnia Persistent disorder of initiating or maintaining sleep Vaginal vault prolapse Unspecified prolapse of vaginal maki Cystocele, midline documented [facility]* Diagnosis Educational circumstances- Primary Educational circumstance Vaginal vault prolapse Unspecified prolapse of vaginal maki Cystocele, midline [facility]* Diagnosis Pre-op evaluation- Primary Preoperative examination, unspecified MARCY (obstructive sleep apnea) Obstructive sleep apnea (adult) (pediatric) Primary hypertension Unspecified essential hypertension Hyperlipidemia, unspecified hyperlipidemia type Vaginal vault prolapse Unspecified prolapse of vaginal maki Cystocele, midline documented in this encounter [facility] note* Diagnosis Pre-op testing- Primary Preoperative examination, unspecified Cystocele, midline Vaginal vault prolapse Unspecified prolapse of vaginal maki Vaginal vault prolapse Unspecified prolapse of vaginal maki Cystocele, midline [facility]* Diagnosis MARCY (obstructive sleep apnea) Obstructive sleep apnea (adult) (pediatric) Difficulty with CPAP use documented in this encounter [facility] note* Diagnosis MARCY (obstructive sleep apnea)- Primary Obstructive sleep apnea (adult) (pediatric) documented in this encounter [facility] note* Diagnosis Post-operative state- Primary Other postprocedural status documented in this encounter [facility] note* Diagnosis Viral illness- Primary Unspecified viral infection, in conditions classified elsewhere and of unspecified site Sore throat Acute pharyngitis Cough, unspecified type documented in this encounter [facility] note* Diagnosis Viral illness- Primary Unspecified viral infection, in conditions classified elsewhere and of unspecified site Sore throat Acute pharyngitis Cough, unspecified type documented in this encounter [facility] note* Diagnosis Screening mammogram for breast cancer- Primary Menopause Symptomatic menopausal or female climacteric states Other hyperlipidemia Primary hypertension Unspecified essential hypertension Elevated glucose Other abnormal glucose Other osteoporosis without current pathological fracture documented in this encounter [facility] Work Phone: Evaluation note* Diagnosis S/P gynecological surgery, follow-up exam- Primary Follow-up examination, following other surgery Nocturia [facility] Diagnosis Nontoxic single thyroid nodule Nontoxic uninodular goiter documented in this encounter [facility] Work Phone: Evaluation note* Diagnosis MARCY (obstructive sleep apnea)- Primary Obstructive sleep apnea (adult) (pediatric) documented in this encounter [facility] note* Diagnosis MARCY (obstructive sleep apnea)- Primary Obstructive sleep apnea (adult) (pediatric) documented in this encounter [facility] note* Diagnosis Screening mammogram for breast cancer documented in this encounter [facility] Work Phone: Evaluation note* Diagnosis Screening mammogram for breast cancer documented in this encounter [facility] Work Phone: Evaluation note* Diagnosis Menopause Symptomatic menopausal or female climacteric states documented in this encounter [facility] Work Phone: Evaluation note* Diagnosis Chronic midline thoracic back pain- Primary Other osteoporosis, unspecified pathological fracture presence documented in this encounter [facility] Work Phone: Evaluation note* Diagnosis Chronic midline thoracic back pain documented in this encounter [facility] Work Phone: Evaluation note* Diagnosis Routine general medical examination at health care facility- Primary Routine general medical examination at a health care facility Need for hepatitis C screening test Special screening examination for other specified viral diseases Primary hypertension Unspecified essential hypertension Other hyperlipidemia Elevated glucose Other abnormal glucose Other osteoporosis without current pathological fracture Severe obstructive sleep apnea documented in this encounter [facility] Work Phone: Evaluation note* Diagnosis Pre-op evaluation- Primary Preoperative examination, unspecified MARCY (obstructive sleep apnea) Obstructive sleep apnea (adult) (pediatric) Primary hypertension Unspecified essential hypertension Hyperlipidemia, unspecified hyperlipidemia type MARCY (obstructive sleep apnea)- Primary Obstructive sleep apnea (adult) (pediatric) documented in this encounter [facility] note* Diagnosis Pre-op evaluation- Primary Preoperative examination, unspecified MARCY (obstructive sleep apnea) Obstructive sleep apnea (adult) (pediatric) Primary hypertension Unspecified essential hypertension Hyperlipidemia, unspecified hyperlipidemia type MARCY (obstructive sleep apnea)- Primary Obstructive sleep apnea (adult) (pediatric) [facility] Diagnosis Abnormal screening cardiac CT- Primary Nonspecific (abnormal) findings on radiological and other examination of other intrathoracic organs Need for influenza vaccination Need for prophylactic vaccination and inoculation against influenza Hyperlipidemia, unspecified hyperlipidemia type documented in this encounter [facility] Work Phone: Evaluation note* Diagnosis Mixed hyperlipidemia- Primary Agatston CAC score, >400 Primary hypertension Unspecified essential hypertension Encounter to discuss test results Other specified counseling documented in this encounter [facility] Work Phone: Evaluation note* Diagnosis MARCY (obstructive sleep apnea)- Primary Obstructive sleep apnea (adult) (pediatric) [facility]* Diagnosis Screening mammogram for breast cancer- Primary Hyperlipidemia, unspecified hyperlipidemia type Primary hypertension Unspecified essential hypertension Elevated glucose Other abnormal glucose Other osteoporosis without current pathological fracture documented in this encounter [facility] Work Phone: Evaluation note* Diagnosis Anxiety with flying- Primary Screening for heart disease Screening for other and unspecified cardiovascular conditions Primary hypertension Unspecified essential hypertension documented in this encounter [facility] Work Phone: Evaluation note* Diagnosis Screening for heart disease Screening for other and unspecified cardiovascular conditions documented in this encounter [facility] Work Phone: Evaluation note* Diagnosis Screening mammogram for breast cancer documented in this encounter [facility] Work Phone: Evaluation note* Diagnosis Acute left-sided low back pain with left-sided sciatica- Primary Left leg pain Pain in soft tissues of limb [facility] Diagnosis Acute left-sided low back pain with left-sided sciatica- Primary Primary hypertension Unspecified essential hypertension Hyperlipidemia, unspecified hyperlipidemia type Acute pain of right shoulder Routine general medical examination at health care facility Routine general medical examination at a health care facility documented in this encounter [facility] Work Phone: Evaluation note* Diagnosis Acute left-sided low back pain with left-sided sciatica- Primary Primary hypertension Unspecified essential hypertension Hyperlipidemia, unspecified hyperlipidemia type Acute pain of right shoulder Routine general medical examination at health care facility Routine general medical examination at a health care facility Lumbar radiculopathy- Primary Thoracic or lumbosacral neuritis or radiculitis, unspecified Cervical radiculopathy Brachial neuritis or radiculitis nos documented in this encounter [facility] Work Phone: Evaluation note* Diagnosis Acute left-sided low back pain with left-sided sciatica- Primary Primary hypertension Unspecified essential hypertension Hyperlipidemia, unspecified hyperlipidemia type Acute pain of right shoulder Routine general medical examination at health care facility Routine general medical examination at a health care facility Lumbar radiculopathy Thoracic or lumbosacral neuritis or radiculitis, unspecified documented in this encounter [facility] Work Phone: Evaluation note* Diagnosis Acute left-sided low back pain with left-sided sciatica- Primary Primary hypertension Unspecified essential hypertension Hyperlipidemia, unspecified hyperlipidemia type Acute pain of right shoulder Routine general medical examination at health care facility Routine general medical examination at a health care facility Cervical radiculopathy Brachial neuritis or radiculitis nos documented in this encounter [facility] Work Phone: Evaluation note* Diagnosis Acute left-sided low back pain with left-sided sciatica- Primary Primary hypertension Unspecified essential hypertension Hyperlipidemia, unspecified hyperlipidemia type Acute pain of right shoulder Routine general medical examination at health care facility Routine general medical examination at a health care facility Hyponatremia- Primary Hyposmolality and/or hyponatremia Hyponatremia Hyposmolality and/or hyponatremia Generalized weakness Acute left-sided low back pain with left-sided sciatica Multiple falls documented in this encounter [facility] Work Phone: Evaluation note* Diagnosis Acute left-sided low back pain with left-sided sciatica- Primary Primary hypertension Unspecified essential hypertension Hyperlipidemia, unspecified hyperlipidemia type Acute pain of right shoulder Routine general medical examination at health care facility Routine general medical examination at a health care facility Numbness and tingling in right hand- Primary Disturbance of skin sensation Lumbar radiculopathy Thoracic or lumbosacral neuritis or radiculitis, unspecified Hyponatremia Hyposmolality and/or hyponatremia Lumbar radiculopathy- Primary Thoracic or lumbosacral neuritis or radiculitis, unspecified Cervical radiculopathy Brachial neuritis or radiculitis nos Lumbar radiculopathy- Primary Thoracic or lumbosacral neuritis or radiculitis, unspecified Cervical radiculopathy Brachial neuritis or radiculitis nos Lumbar radiculopathy- Primary Thoracic or lumbosacral neuritis or radiculitis, unspecified Cervical radiculopathy Brachial neuritis or radiculitis nos Lumbar radiculopathy- Primary Thoracic or lumbosacral neuritis or radiculitis, unspecified Cervical radiculopathy Brachial neuritis or radiculitis nos Lumbar radiculopathy- Primary Thoracic or lumbosacral neuritis or radiculitis, unspecified Cervical radiculopathy Brachial neuritis or radiculitis nos Lumbar radiculopathy- Primary Thoracic or lumbosacral neuritis or radiculitis, unspecified Cervical radiculopathy Brachial neuritis or radiculitis nos Lumbar radiculopathy- Primary Thoracic or lumbosacral neuritis or radiculitis, unspecified Cervical radiculopathy Brachial neuritis or radiculitis nos Lumbar radiculopathy- Primary Thoracic or lumbosacral neuritis or radiculitis, unspecified Cervical radiculopathy Brachial neuritis or radiculitis nos documented in this encounter [facility] Work Phone: Evaluation note* Diagnosis Numbness and tingling in right hand- Primary Disturbance of skin sensation [facility] Diagnosis Acute left-sided low back pain with left-sided sciatica- Primary Primary hypertension Unspecified essential hypertension Hyperlipidemia, unspecified hyperlipidemia type Acute pain of right shoulder Routine general medical examination at health care facility Routine general medical examination at a health care facility Lumbar radiculopathy- Primary Thoracic or lumbosacral neuritis or radiculitis, unspecified Lumbar spondylosis Lumbosacral spondylosis without myelopathy Myofascial pain Unspecified myalgia and myositis Lumbar radiculopathy- Primary Thoracic or lumbosacral neuritis or radiculitis, unspecified Cervical radiculopathy Brachial neuritis or radiculitis nos Lumbar radiculopathy- Primary Thoracic or lumbosacral neuritis or radiculitis, unspecified Cervical radiculopathy Brachial neuritis or radiculitis nos Lumbar radiculopathy- Primary Thoracic or lumbosacral neuritis or radiculitis, unspecified Cervical radiculopathy Brachial neuritis or radiculitis nos Lumbar radiculopathy- Primary Thoracic or lumbosacral neuritis or radiculitis, unspecified Cervical radiculopathy Brachial neuritis or radiculitis nos Lumbar radiculopathy- Primary Thoracic or lumbosacral neuritis or radiculitis, unspecified Cervical radiculopathy Brachial neuritis or radiculitis nos Lumbar radiculopathy- Primary Thoracic or lumbosacral neuritis or radiculitis, unspecified Cervical radiculopathy Brachial neuritis or radiculitis nos Lumbar radiculopathy- Primary Thoracic or lumbosacral neuritis or radiculitis, unspecified Cervical radiculopathy Brachial neuritis or radiculitis nos Lumbar radiculopathy- Primary Thoracic or lumbosacral neuritis or radiculitis, unspecified Cervical radiculopathy Brachial neuritis or radiculitis nos documented in this encounter [facility] Work Phone: Evaluation note* Diagnosis Acute left-sided low back pain with left-sided sciatica- Primary Primary hypertension Unspecified essential hypertension Hyperlipidemia, unspecified hyperlipidemia type Acute pain of right shoulder Routine general medical examination at health care facility Routine general medical examination at a health care facility Hyponatremia- Primary Hyposmolality and/or hyponatremia Lumbar radiculopathy- Primary Thoracic or lumbosacral neuritis or radiculitis, unspecified Cervical radiculopathy Brachial neuritis or radiculitis nos Lumbar radiculopathy- Primary Thoracic or lumbosacral neuritis or radiculitis, unspecified Cervical radiculopathy Brachial neuritis or radiculitis nos Lumbar radiculopathy- Primary Thoracic or lumbosacral neuritis or radiculitis, unspecified Cervical radiculopathy Brachial neuritis or radiculitis nos Lumbar radiculopathy- Primary Thoracic or lumbosacral neuritis or radiculitis, unspecified Cervical radiculopathy Brachial neuritis or radiculitis nos Lumbar radiculopathy- Primary Thoracic or lumbosacral neuritis or radiculitis, unspecified Cervical radiculopathy Brachial neuritis or radiculitis nos Lumbar radiculopathy- Primary Thoracic or lumbosacral neuritis or radiculitis, unspecified Cervical radiculopathy Brachial neuritis or radiculitis nos Lumbar radiculopathy- Primary Thoracic or lumbosacral neuritis or radiculitis, unspecified Cervical radiculopathy Brachial neuritis or radiculitis nos Lumbar radiculopathy- Primary Thoracic or lumbosacral neuritis or radiculitis, unspecified Cervical radiculopathy Brachial neuritis or radiculitis nos documented in this encounter [facility] Work Phone: Evaluation note* Diagnosis Acute left-sided low back pain with left-sided sciatica- Primary Primary hypertension Unspecified essential hypertension Hyperlipidemia, unspecified hyperlipidemia type Acute pain of right shoulder Routine general medical examination at health care facility Routine general medical examination at a health care facility Lumbar radiculopathy Thoracic or lumbosacral neuritis or radiculitis, unspecified Lumbar radiculopathy- Primary Thoracic or lumbosacral neuritis or radiculitis, unspecified Cervical radiculopathy Brachial neuritis or radiculitis nos Lumbar radiculopathy- Primary Thoracic or lumbosacral neuritis or radiculitis, unspecified Cervical radiculopathy Brachial neuritis or radiculitis nos Lumbar radiculopathy- Primary Thoracic or lumbosacral neuritis or radiculitis, unspecified Cervical radiculopathy Brachial neuritis or radiculitis nos Lumbar radiculopathy- Primary Thoracic or lumbosacral neuritis or radiculitis, unspecified Cervical radiculopathy Brachial neuritis or radiculitis nos Lumbar radiculopathy- Primary Thoracic or lumbosacral neuritis or radiculitis, unspecified Cervical radiculopathy Brachial neuritis or radiculitis nos Lumbar radiculopathy- Primary Thoracic or lumbosacral neuritis or radiculitis, unspecified Cervical radiculopathy Brachial neuritis or radiculitis nos Lumbar radiculopathy- Primary Thoracic or lumbosacral neuritis or radiculitis, unspecified Cervical radiculopathy Brachial neuritis or radiculitis nos Lumbar radiculopathy- Primary Thoracic or lumbosacral neuritis or radiculitis, unspecified Cervical radiculopathy Brachial neuritis or radiculitis nos documented in this encounter [facility] Work Phone: Evaluation note* Diagnosis Acute left-sided low back pain with left-sided sciatica- Primary Primary hypertension Unspecified essential hypertension Hyperlipidemia, unspecified hyperlipidemia type Acute pain of right shoulder Routine general medical examination at health care facility Routine general medical examination at a health care facility Lumbar radiculopathy Thoracic or lumbosacral neuritis or radiculitis, unspecified Lumbar radiculopathy- Primary Thoracic or lumbosacral neuritis or radiculitis, unspecified Cervical radiculopathy Brachial neuritis or radiculitis nos Lumbar radiculopathy- Primary Thoracic or lumbosacral neuritis or radiculitis, unspecified Cervical radiculopathy Brachial neuritis or radiculitis nos Lumbar radiculopathy- Primary Thoracic or lumbosacral neuritis or radiculitis, unspecified Cervical radiculopathy Brachial neuritis or radiculitis nos Lumbar radiculopathy- Primary Thoracic or lumbosacral neuritis or radiculitis, unspecified Cervical radiculopathy Brachial neuritis or radiculitis nos Lumbar radiculopathy- Primary Thoracic or lumbosacral neuritis or radiculitis, unspecified Cervical radiculopathy Brachial neuritis or radiculitis nos documented in this encounter [facility] Work Phone: Evaluation note* Diagnosis Acute left-sided low back pain with left-sided sciatica- Primary Primary hypertension Unspecified essential hypertension Hyperlipidemia, unspecified hyperlipidemia type Acute pain of right shoulder Routine general medical examination at health care facility Routine general medical examination at a [facility] care facility Hyponatremia- Primary Hyposmolality and/or hyponatremia Severe obstructive sleep apnea Hypokalemia Hypopotassemia Lumbar radiculopathy- Primary Thoracic or lumbosacral neuritis or radiculitis, unspecified Cervical radiculopathy Brachial neuritis or radiculitis nos Lumbar radiculopathy- Primary Thoracic or lumbosacral neuritis or radiculitis, unspecified Cervical radiculopathy Brachial neuritis or radiculitis nos Lumbar radiculopathy- Primary Thoracic or lumbosacral neuritis or radiculitis, unspecified Cervical radiculopathy Brachial neuritis or radiculitis nos Lumbar radiculopathy- Primary Thoracic or lumbosacral neuritis or radiculitis, unspecified Cervical radiculopathy Brachial neuritis or radiculitis nos Lumbar radiculopathy- Primary Thoracic or lumbosacral neuritis or radiculitis, unspecified Cervical radiculopathy Brachial neuritis or radiculitis nos documented in this encounter [facility] Work Phone: Evaluation note* Diagnosis Carpal tunnel syndrome on right- Primary Carpal tunnel syndrome Ulnar neuropathy at elbow, right [facility] Diagnosis Acute left-sided low back pain with left-sided sciatica- Primary Primary hypertension Unspecified essential hypertension Hyperlipidemia, unspecified hyperlipidemia type Acute pain of right shoulder Routine general medical examination at health care facility Routine general medical examination at a health care facility Right carpal tunnel syndrome- Primary Carpal tunnel syndrome Hyponatremia Hyposmolality and/or hyponatremia Hypokalemia Hypopotassemia Mood change Unspecified episodic mood disorder Nausea Nausea alone Noncompliance with medication regimen Personal history of noncompliance with medical treatment, presenting hazards to [facility] Lumbar radiculopathy- Primary Thoracic or lumbosacral neuritis or radiculitis, unspecified Cervical radiculopathy Brachial neuritis or radiculitis nos documented in this encounter [facility] Work Phone: Evaluation note* Diagnosis Acute left-sided low back pain with left-sided sciatica- Primary Primary hypertension Unspecified essential hypertension Hyperlipidemia, unspecified hyperlipidemia type Acute pain of right shoulder Routine general medical examination at [facility] care facility Routine general medical examination at a [facility] [place] Right carpal tunnel syndrome- Primary Carpal tunnel syndrome Right hand pain Pain in soft tissues of limb documented in this encounter [facility] Work Phone: Evaluation note* Diagnosis Acute left-sided low back pain with left-sided sciatica- Primary Primary hypertension Unspecified essential hypertension Hyperlipidemia, unspecified hyperlipidemia type Acute pain of right shoulder Routine general medical examination at [facility] [place] Routine general medical examination at a [facility] [place] Right carpal tunnel syndrome- Primary Carpal tunnel syndrome Right hand pain Pain in soft tissues of limb Right hand pain Pain in soft tissues of limb documented in this encounter [facility] Work Phone: Evaluation note* Diagnosis Acute left-sided low back pain with left-sided sciatica- Primary Primary hypertension Unspecified essential hypertension Hyperlipidemia, unspecified hyperlipidemia type Acute pain of right shoulder Routine general medical examination at [facility] care facility Routine general medical examination at a [facility] care [facility] Right carpal tunnel syndrome- Primary Carpal tunnel syndrome Right hand pain Pain in soft tissues of limb Generalized weakness- Primary Weakness of left leg Muscle weakness (generalized) Decreased appetite Anorexia Hyponatremia Hyposmolality and/or hyponatremia documented in this encounter [facility] Work Phone: Evaluation note* Diagnosis Acute left-sided low back pain with left-sided sciatica- Primary Primary hypertension Unspecified essential hypertension Hyperlipidemia, unspecified hyperlipidemia type Acute pain of right shoulder Routine general medical examination at [facility] care facility Routine general medical examination at a health care facility Right carpal tunnel syndrome- Primary Carpal tunnel syndrome Right hand pain Pain in soft tissues of limb Lumbar radiculopathy- Primary Thoracic or lumbosacral neuritis or radiculitis, unspecified Other dysphagia Hypokalemia Hypopotassemia Mood change Unspecified episodic mood disorder Weight loss Loss of weight Severe sleep apnea Primary hypertension Unspecified essential hypertension documented in this encounter [facility] Work Phone: Evaluation note* Diagnosis Back pain, unspecified back location, unspecified back pain laterality, unspecified chronicity- [facility] Diagnosis Acute left-sided low back pain with left-sided sciatica- Primary Primary hypertension Unspecified essential hypertension Hyperlipidemia, unspecified hyperlipidemia type Acute pain of right shoulder Routine general medical examination at [facility] care facility Routine general medical examination at a [facility] care [facility] Right carpal tunnel syndrome- Primary Carpal tunnel syndrome Right hand pain Pain in soft tissues of limb Primary hypertension- Primary Unspecified essential hypertension Hyponatremia Hyposmolality and/or hyponatremia Hypokalemia Hypopotassemia documented in this encounter [facility] Work Phone: Evaluation note* Diagnosis Lumbar radiculopathy- Primary Thoracic or lumbosacral neuritis or radiculitis, unspecified Hypokalemia Hypopotassemia Hyponatremia Hyposmolality and/or hyponatremia Severe obstructive sleep apnea Noncompliance with medication regimen Personal history of noncompliance with medical treatment, presenting hazards to health Nausea Nausea alone [facility] Diagnosis Acute left-sided low back pain with left-sided sciatica- Primary Primary hypertension Unspecified essential hypertension Hyperlipidemia, unspecified hyperlipidemia type Acute pain of right shoulder Routine general medical examination at health care facility Routine general medical examination at a [facility] care facility Right carpal tunnel syndrome- Primary Carpal tunnel syndrome Right hand pain Pain in soft tissues of limb Primary hypertension- Primary Unspecified essential hypertension Hyponatremia Hyposmolality and/or hyponatremia Hypokalemia Hypopotassemia Weight loss Loss of weight Hyponatremia Hyposmolality and/or hyponatremia documented in this encounter [facility] Work Phone: Evaluation note* Diagnosis Acute left-sided low back pain with left-sided sciatica- Primary Primary hypertension Unspecified essential hypertension Hyperlipidemia, unspecified hyperlipidemia type Acute pain of right shoulder Routine general medical examination at health care facility Routine general medical examination at a [facility] care [facility] Right carpal tunnel syndrome- Primary Carpal tunnel syndrome Right hand pain Pain in soft tissues of limb Primary hypertension- Primary Unspecified essential hypertension Hyponatremia Hyposmolality and/or hyponatremia Hypokalemia Hypopotassemia Personal history of pulmonary embolism- Primary Personal history of pulmonary embolism Acute pulmonary embolism without acute cor pulmonale, unspecified pulmonary embolism type (Multi) Shortness of breath Lumbar radiculopathy Thoracic or lumbosacral neuritis or radiculitis, unspecified Other acute pulmonary embolism without acute cor pulmonale documented in this encounter [facility] Work Phone: Evaluation note* Diagnosis Acute left-sided low back pain with left-sided sciatica- Primary Primary hypertension Unspecified essential hypertension Hyperlipidemia, unspecified hyperlipidemia type Acute pain of right shoulder Routine general medical examination at [facility] care facility Routine general medical examination at a [facility] care [facility] Right carpal tunnel syndrome- Primary Carpal tunnel syndrome Right hand pain Pain in soft tissues of limb Primary hypertension- Primary Unspecified essential hypertension Hyponatremia Hyposmolality and/or hyponatremia Hypokalemia Hypopotassemia Other acute pulmonary embolism without acute cor pulmonale- Primary Nausea Nausea alone Need for influenza vaccination Need for prophylactic vaccination and inoculation against influenza Dyspepsia Dyspepsia and other specified disorders of function of stomach Lumbar radiculopathy Thoracic or lumbosacral neuritis or radiculitis, unspecified Severe obstructive sleep apnea Hypokalemia Hypopotassemia Hyponatremia Hyposmolality and/or hyponatremia Right carpal tunnel syndrome Carpal tunnel syndrome Acute deep vein thrombosis (DVT) of other specified vein of left lower extremity documented in this encounter [facility] Work Phone: Evaluation note* Diagnosis Acute left-sided low back pain with left-sided sciatica- Primary Primary hypertension Unspecified essential hypertension Hyperlipidemia, unspecified hyperlipidemia type Acute pain of right shoulder Routine general medical examination at health care facility Rout[facility] at [facility] Right carpal tunnel syndrome- Primary Carpal tunnel syndrome Right hand pain Pain in soft tissues of limb Primary hypertension- Primary Unspecified essential hypertension Hyponatremia Hyposmolality and/or hyponatremia Hypokalemia Hypopotassemia Lumbar radiculopathy- Primary Thoracic or lumbosacral neuritis or radiculitis, unspecified Lumbar stenosis with neurogenic claudication documented in this encounter [facility] Work Phone: Evaluation note* Diagnosis Acute left-sided low back pain with left-sided sciatica- Primary Primary hypertension Unspecified essential hypertension Hyperlipidemia, unspecified hyperlipidemia type Acute pain of right shoulder Routine general medical examination at health care facility Routine general medical examination at a health care facility Lumbar radiculopathy Thoracic or lumbosacral neuritis or radiculitis, unspecified Right carpal tunnel syndrome- Primary Carpal tunnel syndrome Right hand pain Pain in soft tissues of limb Primary hypertension- Primary Unspecified essential hypertension Hyponatremia Hyposmolality and/or hyponatremia Hypokalemia Hypopotassemia Lumbar radiculopathy Thoracic or lumbosacral neuritis or radiculitis, unspecified Lumbar radiculopathy Thoracic or lumbosacral neuritis or radiculitis, unspecified Lumbar radiculopathy Thoracic or lumbosacral neuritis or radiculitis, unspecified Lumbar radiculopathy Thoracic or lumbosacral neuritis or radiculitis, unspecified Lumbar radiculopathy Thoracic or lumbosacral neuritis or radiculitis, unspecified Lumbar radiculopathy Thoracic or lumbosacral neuritis or radiculitis, unspecified Lumbar radiculopathy Thoracic or lumbosacral neuritis or radiculitis, unspecified Lumbar radiculopathy Thoracic or lumbosacral neuritis or radiculitis, unspecified documented in this encounter [facility] Work Phone: Evaluation note* Diagnosis Acute left-sided low back pain with left-sided sciatica- Primary Primary hypertension Unspecified essential hypertension Hyperlipidemia, unspecified hyperlipidemia type Acute pain of right shoulder Routine general medical examination at health care facility Routine general medical examination at a health care facility Right carpal tunnel syndrome- Primary Carpal tunnel syndrome Right hand pain Pain in soft tissues of limb Primary hypertension- Primary Unspecified essential hypertension Hyponatremia Hyposmolality and/or hyponatremia Hypokalemia Hypopotassemia Lumbar radiculopathy- Primary Thoracic or lumbosacral neuritis or radiculitis, unspecified Hyponatremia Hyposmolality and/or hyponatremia Hypokalemia Hypopotassemia Primary hypertension Unspecified essential hypertension Severe obstructive sleep apnea Lumbar stenosis with neurogenic claudication Acute deep vein thrombosis (DVT) of proximal vein of left lower extremity (Multi) Right carpal tunnel syndrome Carpal tunnel syndrome Lumbar radiculopathy Thoracic or lumbosacral neuritis or radiculitis, unspecified Lumbar radiculopathy Thoracic or lumbosacral neuritis or radiculitis, unspecified Lumbar radiculopathy Thoracic or lumbosacral neuritis or radiculitis, unspecified Lumbar radiculopathy Thoracic or lumbosacral neuritis or radiculitis, unspecified documented in this encounter [facility] Work Phone: Evaluation note* Diagnosis Acute left-sided low back pain with left-sided sciatica- Primary Primary hypertension Unspecified essential hypertension Hyperlipidemia, unspecified hyperlipidemia type Acute pain of right shoulder Routine general medical examination at health care facility Routine general medical examination at a [facility] care facility Right carpal tunnel syndrome- Primary Carpal tunnel syndrome Right hand pain Pain in soft tissues of limb Primary hypertension- Primary Unspecified essential hypertension Hyponatremia Hyposmolality and/or hyponatremia Hypokalemia Hypopotassemia Lumbar stenosis with neurogenic claudication- Primary Right carpal tunnel syndrome Carpal tunnel syndrome Lumbar radiculopathy Thoracic or lumbosacral neuritis or radiculitis, unspecified Lumbar radiculopathy Thoracic or lumbosacral neuritis or radiculitis, unspecified Lumbar radiculopathy Thoracic or lumbosacral neuritis or radiculitis, unspecified Lumbar radiculopathy Thoracic or lumbosacral neuritis or radiculitis, unspecified documented in this encounter [facility] Work Phone: Evaluation note* Diagnosis Acute left-sided low back pain with left-sided sciatica- Primary Primary hypertension Unspecified essential hypertension Hyperlipidemia, unspecified hyperlipidemia type Acute pain of right shoulder Routine general medical examination at health care facility Routine general medical examination at a [facility] care facility Right carpal tunnel syndrome- Primary Carpal tunnel syndrome Right hand pain Pain in soft tissues of limb Primary hypertension- Primary Unspecified essential hypertension Hyponatremia Hyposmolality and/or hyponatremia Hypokalemia Hypopotassemia Right carpal tunnel syndrome Carpal tunnel syndrome Lumbar radiculopathy Thoracic or lumbosacral neuritis or radiculitis, unspecified Lumbar radiculopathy Thoracic or lumbosacral neuritis or radiculitis, unspecified Lumbar radiculopathy Thoracic or lumbosacral neuritis or radiculitis, unspecified Lumbar radiculopathy Thoracic or lumbosacral neuritis or radiculitis, unspecified documented in this encounter [facility] Work Phone: Evaluation note* Diagnosis Acute left-sided low back pain with left-sided sciatica- Primary Primary hypertension Unspecified essential hypertension Hyperlipidemia, unspecified hyperlipidemia type Acute pain of right shoulder Routine general medical examination at health care facility Routine general medical examination at a health care facility Right carpal tunnel syndrome- Primary Carpal tunnel syndrome Right hand pain Pain in soft tissues of limb Primary hypertension- Primary Unspecified essential hypertension Hyponatremia Hyposmolality and/or hyponatremia Hypokalemia Hypopotassemia Right carpal tunnel syndrome Carpal tunnel syndrome Other chronic pulmonary embolism without acute cor pulmonale- Primary documented in this encounter [facility] Work Phone: History of Present illness Narrative* Pt presents for periodic surveillance of chronic medical problems. * Has a few new concerns. * Has mild drooling right corner of her mouth at times. Going to dentist today as well will address same. * Urinating at night more frequently. Wakes her up and then can't fall back to sleep. We discussed melatonin. Interested in something over the counter to help with sleep/falling back asleep. * Hyperlipidemia, stable * History of colon polyp, colonoscopy current * Euthyroid multinodular goiter, reviewed chart, last imaging about three years ago, no obstructive symptoms -[facility] Work Phone: History of Present illness Narrative* Uzma is here today to review her bone density results. * Reviewed with her findings of osteoporosis and fracture risk. Discussed risks of no treatment and natural progression of the disease with age. Discussed current treatment options, benefits, risks andside effects. For now she opts to choose not treatment, will continue calcium with D supplement twice daily and regular weight bearing exercise. * She has been to Dr Davenport for thyroid nodules and plan is observation at this point. * She notes end of February, she caught her finger on rug cleaning up a spilled plant, and her right middle finger has been bent distally since then . She was getting ready to leave to [place] told her all the doctor is going to do is have you wear a splint ,so she got a splint and has been wearing it at night only and hasn't had any improvement, still can' t straighten that distal joint of dominant right hand middle finger. [facility] 205 DO Work Phone: History of Present illness Narrative* Uzma is here today to review her bone density results. * Reviewed with her findings of osteoporosis and fracture risk. Discussed risks of no treatment and natural progression of the disease with age. Discussed current treatment options, benefits, risks andside effects. For now she opts to choose not treatment, will continue calcium with D supplement twice daily and regular weight bearing exercise. * She has been to Dr Davenport for thyroid nodules and plan is observation at this point. * She notes end of February, she caught her finger on rug cleaning up a spilled plant, and her right middle finger has been bent distally since then . She was getting ready to leave to [place], [facility] told her all the doctor is going to do is have you wear a splint ,so she got a splint and has been wearing it at night only and hasn't had any improvement, still can' t straighten that distal joint of dominant right hand middle finger. [facility] Work Phone: History of Present illness Narrative* Uzma is here today to review her bone density results. * Reviewed with her findings of osteoporosis and fracture risk. Discussed risks of no treatment and natural progression of the disease with age. Discussed current treatment options, benefits, risks andside effects. For now she opts to choose not treatment, will continue calcium with D supplement twice daily and regular weight bearing exercise. * She has been to Dr Davenport for thyroid nodules and plan is observation at this point. * She notes end of February, she caught her finger on rug cleaning up a spilled plant, and her right middle finger has been bent distally since then . She was getting ready to leave to [place], [facility] told her all the doctor is going to do is have you wear a splint ,so she got a splint and has been wearing it at night only and hasn't had any improvement, still can' t straighten that distal joint of dominant right hand middle finger. [facility] Work Phone: Hospital Discharge instructions* Attachments The following attachments cannot be sent through Care Everywhere. * Going Home on Blood Thinners (Lebanese) * Pulmonary embolism Discharge instructions (Lebanese) [facility] Reason for referral (narrative)* Diagnostic Procedure Only (Routine) - Pending Review Specialty Diagnoses / Procedures Referred By Contac t Referred To Contact [facility] [place] Diagnoses MARCY (obstructive sleep apnea) Procedures HOME SLEEP APNEA TEST (HSAT) SLEEP STD AIRFLOW HRT RATE&O2 SAT EFFORT UNATT Lin Alcantar MD [id number] [place] [address] Referral ID Status Reason Start Date Expiration Date Visits Requested Visits Authorized [id number] Pending Review Auto-Generat ed Referral 03/07/2022 03/07/2023 1 1 [facility] for referral (narrative)* Consultation (Routine) - Authorized Specialty Diagnoses / Procedures Referred By Contkatelyn t Referred To Contact Primary Care Diagnoses Primary hypertension Procedures Follow Up In Primary Care Cyndi Horn MD [address] [facility] [place] [address] Referral ID Status Reason Start Date Expiration Date V isits Requested Visits Authorized [id number] Authorized 06/01/2022 11/28/2022 1 1 * Consultation (Routine) - Authorized Specialty Diagnoses / Procedures Referred By Contac t Referred To Contact Primary Care Diagnoses Primary hypertension Procedures Follow Up In Primary Care Cyndi Horn MD [address] [facility] [place] [address] Referral ID Status Reason Start Date Expiration Date V isits Requested Visits Authorized [id number] Authorized 06/01/2022 11/28/2022 1 1 [facility] Work Phone: ason for referral (narrative)* Diagnostic Procedure Only (Routine) - Pending Review Specialty Diagnoses / Procedures Referred By Contac t Referred To Contact [facility] [place] Diagnoses MARCY (obstructive sleep apnea) Procedures HOME SLEEP APNEA TEST (HSAT) SLEEP STD AIRFLOW HRT RATE&O2 SAT EFFORT Naomi Prakash MD [address] [place] [address] [address] Referral ID Status Reason Start Date Expiration Date Visits Requested Visits Authorized [id number] Pending Review Auto-Generat ed Referral 05/16/2023 05/15/2024 1 1 T [facility] for referral (narrative)* Diagnostic Procedure Only (Routine) - New Request Specialty Diagnoses / Procedures Referred By Ron t Referred To Contact [facility] Diagnoses MARCY (obstructive sleep apnea) Procedures HOME SLEEP APNEA TEST (HSAT) SLEEP STD AIRFLOW HRT RATE&O2 SAT EFFORT Naomi Prakash MD [address] [place] [address] [address] Referral ID Status Reason Start Date Expiration Date Visits Requested Visits Authorized [id number] New Request Auto-Generat ed Referral 10/17/2023 10/16/2024 1 1 [facility] for referral (narrative)* Consultation (Routine) - Authorized Specialty Diagnoses / Procedures Referred By Contac t Referred To Contact Cardiology Diagnoses Abnormal screening cardiac CT Cyndi Horn MD [address] [place] [address] Referral ID Status Reason Start Date Expiration Date Visits Requested Visits Authorized [id number] Authorized Specialty Services Required 4 12/06/2024 1 1 [facility] Work Phone: reason for visit Narrative* Imaging (Routine) - Authorized Specialty Diagnoses / Procedures Referred By Ron t Referred To Contact Radiology Diagnoses Screening mammogram for breast cancer Procedures BI mammo bilateral screening tomosynthesis Cyndi Horn MD [address] [place] [address] Phone: tel: fax: Referral ID Status Reason Start Date Expiration Date Visits Requested Visits Authorized [id number] Authorized Perform Procedure 4 02/08/2025 1 1 [facility] Work Phone: reason for visit Narrative* Imaging (Routine) - Authorized Specialty Diagnoses / Procedures Referred By Contac t Referred To Contact Radiology Diagnoses Lumbar radiculopathy Procedures XR lumbar spine 2-3 views Cyndi Horn MD [address] [place] [address] Phone: tel: fax: Referral ID Status Reason Start Date Expiration Date Visits Requested Visits Authorized [id number] Authorized Perform Procedure 09/19/2024 09/19/2025 1 1 [facility] Work Phone: reason for visit Narrative* Imaging (Routine) - Authorized Specialty Diagnoses / Procedures Referred By Contac t Referred To Contact Radiology Diagnoses Cervical radiculopathy Procedures XR cervical spine 2-3 views Cyndi Horn MD [address] [place] [address] Phone: tel: fax: Referral ID Status Reason Start Date Expiration Date Visits Requested Visits Authorized [id number] Authorized Perform Procedure 09/19/2024 09/19/2025 1 1 [facility] Work Phone: Reason for visit Narrative* Imaging (Routine) - Authorized Specialty Diagnoses / Procedures Referred By Contac t Referred To Contact Radiology Diagnoses Lumbar radiculopathy Procedures MR lumbar spine wo IV contrast Cyndi Horn MD [address] [address] Phone: tel: fax: Referral ID Status Reason Start Date Expiration Date Visits Requested Visits Authorized [id number] Authorized Perform Procedure 10/01/2024 10/01/2025 1 1 [facility] Work Phone: Reason for visit Narrative* Procedure (Routine) - Authorized Specialty Diagnoses / Procedures Referred By Contac t Referred To Contact Pain Medicine / Procedural Diagnoses Lumbar radiculopathy Procedures Epidural Steroid Injection MA NJX DX/THER SBST INTRLMNR LMBR/SAC W/IMG GDN Tarik Horn, DO [address] [place] [address] Phone: tel: fax: [facility] [place] [address] [place] [phone] fax: Referral ID Status Reason Start Date Expiration Date Visits Requested Visits Authorized [id number] Authorized Perform Procedure 10/02/2024 10/02/2025 1 1 [facility] Work Phone: Reaium for visit Narrative* EMG/NCS (Routine) - Closed Specialty Diagnoses / Procedures Referred By Contac t Referred To Contact Neurology Diagnoses Numbness and tingling in right hand Cyndi Horn MD [address] [address] Phone: tel: fax: [facility] Referral ID Status Reason Start Date Expiration Date Visits Re quested Visits Authorized [id number] Closed 10/02/2024 10/02/2025 1 1 [facility] for visit Narrative* Imaging (Routine) - Authorized Specialty Diagnoses / Procedures Referred By Contac t Referred To Contact Radiology Diagnoses Right hand pain Procedures XR hand right 3+ views [facility] Calderon [facility] [address] [facility] [address] [place] [address] Phone: tel: fax: Referral ID Status Reason Start Date Expiration Date Visits Requested Visits Authorized [id number] Authorized Perform Procedure 10/31/2024 11/29/2025 1 1 [facility] Work Phone: Reason for visit Narrative* Imaging (Routine) - Authorized Specialty Diagnoses / Procedures Referred By Contac t Referred To Contact Radiology Diagnoses Weight loss Procedures CT chest abdomen pelvis w IV contrast Cyndi Horn MD [address] [facility] [address] [place] [address] Phone: tel: fax: Referral ID Status Reason Start Date Expiration Date Visits Requested Visits Authorized [id number] Authorized Perform Procedure 11/05/2024 12/05/2025 1 1 [facility] Work Phone: Summary Purpose Family History No Family History Records FoundUnknown Family Member Name Dates Details Family history of diabetes m ellitus: Mother(V18.0, Z83.3) Status:Active Family history of osteoporos is: Mother(V17.81, Z82.62) Status:Active Primary malignant neoplasm o f lung: Mother Status:Active Family history of cardiac di sorder: Father(V17.49, Z82.49) Status:Active Family history of hypertensi on: Father(V17.49, Z82.49) Status:Active Primary malignant neoplasm o f prostate: Father Status:Active Psychological disorder: Fath er Status:Active Family history of asthma: Mo ther(V17.5, Z82.5) Status:Active Unknown Family Member Name Dates Details Family history of diabetes m ellitus: Mother(V18.0, Z83.3) Status:Active Family history of osteoporos is: Mother(V17.81, Z82.62) Status:Active Primary malignant neoplasm o f lung: Mother Status:Active Family history of cardiac di sorder: Father(V17.49, Z82.49) Status:Active Family history of hypertensi on: Father(V17.49, Z82.49) Status:Active Primary malignant neoplasm o f prostate: Father Status:Active Psychological disorder: Fath er Status:Active Family history of asthma: Mo ther(V17.5, Z82.5) Status:Active Unknown Family Member Name Dates Details Family history of diabetes m ellitus: Mother(V18.0, Z83.3) Status:Active Family history of osteoporos is: Mother(V17.81, Z82.62) Status:Active Primary malignant neoplasm o f lung: Mother Status:Active Family history of cardiac di sorder: Father(V17.49, Z82.49) Status:Active Family history of hypertensi on: Father(V17.49, Z82.49) Status:Active Primary malignant neoplasm o f prostate: Father Status:Active Psychological disorder: Fath er Status:Active Family history of asthma: Mo ther(V17.5, Z82.5) Status:Active Unknown Family Member Name Dates Details Family history of diabetes m ellitus: Mother(V18.0, Z83.3) Status:Active Family history of osteoporos is: Mother(V17.81, Z82.62) Status:Active Primary malignant neoplasm o f lung: Mother Status:Active Family history of cardiac di sorder: Father(V17.49, Z82.49) Status:Active Family history of hypertensi on: Father(V17.49, Z82.49) Status:Active Primary malignant neoplasm o f prostate: Father Status:Active Psychological disorder: Fath er Status:Active Family history of asthma: Mo ther(V17.5, Z82.5) Status:Active Unknown Family Member Name Dates Details Family history of diabetes m ellitus: Mother(V18.0, Z83.3) Status:Active Family history of osteoporos is: Mother(V17.81, Z82.62) Status:Active Primary malignant neoplasm o f lung: Mother Status:Active Family history of cardiac di sorder: Father(V17.49, Z82.49) Status:Active Family history of hypertensi on: Father(V17.49, Z82.49) Status:Active Primary malignant neoplasm o f prostate: Father Status:Active Psychological disorder: Fath er Status:Active Family history of asthma: Mo ther(V17.5, Z82.5) Status:Active Unknown Family Member Name Dates Details Family history of diabetes m ellitus: Mother(V18.0, Z83.3) Status:Active Family history of osteoporos is: Mother(V17.81, Z82.62) Status:Active Primary malignant neoplasm o f lung: Mother Status:Active Family history of cardiac di sorder: Father(V17.49, Z82.49) Status:Active Family history of hypertensi on: Father(V17.49, Z82.49) Status:Active Primary malignant neoplasm o f prostate: Father Status:Active Psychological disorder: Fath er Status:Active Family history of asthma: Mo ther(V17.5, Z82.5) Status:Active Unknown Family Member Name Dates Details Family history of diabetes m ellitus: Mother(V18.0, Z83.3) Status:Active Family history of osteoporos is: Mother(V17.81, Z82.62) Status:Active Primary malignant neoplasm o f lung: Mother Status:Active Family history of cardiac di sorder: Father(V17.49, Z82.49) Status:Active Family history of hypertensi on: Father(V17.49, Z82.49) Status:Active Primary malignant neoplasm o f prostate: Father Status:Active Psychological disorder: Fath er Status:Active Family history of asthma: Mo ther(V17.5, Z82.5) Status:Active Unknown Family Member Name Dates Details Family history of diabetes m ellitus: Mother(V18.0, Z83.3) Status:Active Family history of osteoporos is: Mother(V17.81, Z82.62) Status:Active Primary malignant neoplasm o f lung: Mother Status:Active Family history of cardiac di sorder: Father(V17.49, Z82.49) Status:Active Family history of hypertensi on: Father(V17.49, Z82.49) Status:Active Primary malignant neoplasm o f prostate: Father Status:Active Psychological disorder: Fath er Status:Active Family history of asthma: Mo ther(V17.5, Z82.5) Status:Active Unknown Family Member Name Dates Details Family history of diabetes m ellitus: Mother(V18.0, Z83.3) Status:Active Family history of osteoporos is: Mother(V17.81, Z82.62) Status:Active Primary malignant neoplasm o f lung: Mother Status:Active Family history of cardiac di sorder: Father(V17.49, Z82.49) Status:Active Family history of hypertensi on: Father(V17.49, Z82.49) Status:Active Primary malignant neoplasm o f prostate: Father Status:Active Psychological disorder: Fath er Status:Active Family history of asthma: Mo ther(V17.5, Z82.5) Status:Active Unknown Family Member Name Dates Details Family history of diabetes m ellitus: Mother(V18.0, Z83.3) Status:Active Family history of osteoporos is: Mother(V17.81, Z82.62) Status:Active Primary malignant neoplasm o f lung: Mother Status:Active Family history of cardiac di sorder: Father(V17.49, Z82.49) Status:Active Family history of hypertensi on: Father(V17.49, Z82.49) Status:Active Primary malignant neoplasm o f prostate: Father Status:Active Psychological disorder: Fath er Status:Active Family history of asthma: Mo ther(V17.5, Z82.5) Status:Active Unknown Family Member Name Dates Details Family history of diabetes m ellitus: Mother(V18.0, Z83.3) Status:Active Family history of osteoporos is: Mother(V17.81, Z82.62) Status:Active Primary malignant neoplasm o f lung: Mother Status:Active Family history of cardiac di sorder: Father(V17.49, Z82.49) Status:Active Family history of hypertensi on: Father(V17.49, Z82.49) Status:Active Primary malignant neoplasm o f prostate: Father Status:Active Psychological disorder: Fath er Status:Active Family history of asthma: Mo ther(V17.5, Z82.5) Status:Active Advance Directives No Advanced Directives Records FoundDocuments on File Type Date Recorded Patient Pediatric Critical Care Nurse Expl anation Living Will 02/05/2016 Date Activated Date Inactivated Comments 09/21/2024 8:39 PM Question Answer Comments Plan of Care: Code Status Discussion Completed Decision Maker: Patient Documents on File Type Date Recorded Patient Pediatric Critical Care Nurse Expl anation Advance Directives and Living Will Documents on File Type Date Recorded Patient Pediatric Critical Care Nurse Expl anation Advance Directives and Living Will 02/05/2016 Documents on File Type Date Recorded Patient Pediatric Critical Care Nurse Expl anation Living Will 02/05/2016 Documents on File Type Date Recorded Patient Pediatric Critical Care Nurse Expl anation Advance Directives and Living Will 02/05/2016 Living Will 02/05/2016 Documents on File Type Date Recorded Patient Pediatric Critical Care Nurse Expl anation Advance Directives and Living Will 02/05/2016 Living Will 02/05/2016 Date Activated Date Inactivated Comments 09/21/2024 8:39 PM Question Answer Comments Plan of Care: Code Status Discussion Completed Decision Maker: Patient Date Activated Date Inactivated Comments 11/14/2024 4:30 PM Question Answer Comments Plan of Care: Code Status Discussion Not Compl eted Decision Maker: Provider Rationale: Patient condition does not warra nt discussion Date Activated Date Inactivated Comments 09/21/2024 8:39 PM 11/14/2024 4:30 PM Question Answer Comments Plan of Care: Code Status Discussion Completed Decision Maker: Patient Date Activated Date Inactivated Comments 11/14/2024 4:30 PM Question Answer Comments Plan of Care: Code Status Discussion Not Compl eted Decision Maker: Provider Rationale: Patient condition does not warra nt discussion Date Activated Date Inactivated Comments 09/21/2024 8:39 PM 11/14/2024 4:30 PM Question Answer Comments Plan of Care: Code Status Discussion Completed Decision Maker: Patient Chief Complaint Chief Complaint: UZMA DURAN is here with a chief complaint of HERE FOR MED CHECK; F/U LABS.follow up to bone density scanfollow up to bone density scan follow up to bone density scanChief Complaint: UZMA DURAN is here with a chief complaint of C/O ELEVATED BP SINCE LAST VISIT WITH [facility]. BROUGHT HOME BP CUFF FOR COMPARISON BP 154/94. Reason for Referral Specialty Diagnoses / Procedures Referred By Ron andrade Referred To Contact Dentistry Diagnoses MARCY (obstructive sleep apnea) Difficulty with CPAP use Procedures CONSULT TO DENTISTRY OFFICE/OUTPATIENT NEW HIGH MDM 60-74 MINUTES Naomi Trejo MD [address] [place] [address] Referral ID Status Reason Start Date Expiration Date Visits Requested Visits Authorized [id number] Pending Review PCP Requested Referral 07/04/2022 07/04/2023 1 1 Specialty Diagnoses / Procedures Referred By Ron andrade Referred To Contact Radiology Diagnoses Screening mammogram for breast cancer Procedures BI mammo bilateral screening tomosynthesis Cyndi Horn MD [address] [place] [address] Referral ID Status Reason Start Date Expiration Date Visits Requested Visits Authorized [id number] Authorized Perform Procedure 02/02/2023 02/02/2024 1 1 Specialty Diagnoses / Procedures Referred By Contac t Referred To Contact Radiology Diagnoses Menopause Procedures XR DEXA bone density Cyndi Horn MD [address] [place] [address] Referral ID Status Reason Start Date Expiration Date Visits Requested Visits Authorized [id number] Pending Review Perform Procedure 02/02/2023 02/02/2024 1 1 Specialty Diagnoses / Procedures Referred By Contac t Referred To Contact Radiology Diagnoses Nontoxic single thyroid nodule Procedures US thyroid Abdiaziz Davenport MD [address] [place] [address] Referral ID Status Reason Start Date Expiration Date Visits Requested Visits Authorized [id number] Authorized Perform Procedure 02/28/2023 02/28/2024 1 1 Specialty Diagnoses / Procedures Referred By Contac t Referred To Contact Radiology Diagnoses Chronic midline thoracic back pain Procedures XR thoracic spine 3 views Cyndi Horn MD [address] [place] [address] Referral ID Status Reason Start Date Expiration Date Visits Requested Visits Authorized [id number] Authorized Perform Procedure 06/15/2023 06/14/2024 1 1 Specialty Diagnoses / Procedures Referred By Contac t Referred To Contact Radiology Diagnoses Screening for heart disease Procedures CT cardiac scoring wo IV contrast Cyndi Horn MD [address] [place] [address] Referral ID Status Reason Start Date Expiration Date Visits Requested Visits Authorized [id number] Pending Review Perform Procedure 10/19/2023 10/18/2024 1 1 Specialty Diagnoses / Procedures Referred By Contac t Referred To Contact Radiology Diagnoses Screening for heart disease Procedures CT cardiac scoring wo IV contrast Cyndi Horn MD [address] [facility] [address] [place] [address] Additional Source Comments INFORMATION SOURCE (unrecogn ized section and content) DATE CREATED AUTHOR 02/05/2018 [facility] DATE CREATED AUTHOR AUTHOR'S ORGANIZ ATION 03/12/2018 [facility] DATE CREATED AUTHOR AUTHOR'S ORGANIZ ATION 03/11/2022 [facility] DATE CREATED AUTHOR AUTHOR'S ORGANIZ ATION 06/29/2022 [facility] DATE CREATED AUTHOR AUTHOR'S ORGANIZ ATION 11/20/2023 [facility] DATE CREATED AUTHOR AUTHOR'S ORGANIZ ATION 09/11/2024 [facility] DATE CREATED AUTHOR AUTHOR'S ORGANIZ ATION 11/16/2024 [facility] DATE CREATED AUTHOR AUTHOR'S ORGANIZ ATION 12/15/2024 [facility] DATE CREATED AUTHOR AUTHOR'S ORGANIZ ATION 12/18/2024 [facility] DATE CREATED AUTHOR AUTHOR'S ORGANIZ ATION 01/01/2025 [facility] DATE CREATED AUTHOR AUTHOR'S ORGANIZ ATION 01/03/2025 [facility] DATE CREATED AUTHOR AUTHOR'S ORGANIZ ATION 01/07/2025 [facility] Care Teams (unrecognized sec tion and content) Watermaster Relationship Specialty Start Date End Date Cyndi Horn MD [address] [place] [phone] PCP - General Family Medicine 05/20/16 Watermaster Relationship Specialty Start Date End Date Cyndi Horn MD [address] [facility] [place] [address] PCP - A[employer]na Medicare Advantage PCP 02/27/21 Cyndi Horn MD [address] [facility] [place] [phone] PCP - General Family Medicine 05/31/22 Watermaster Relationship Specialty Start Date End Date Cyndi Horn MD [address] [place] [address] PCP - A[employer]na Medicare Advantage PCP 02/27/21 Cyndi Horn MD [address] [place] [address] PCP - General Family Medicine 05/31/22 Watermaster Relationship Specialty Start Date End Date Cyndi Horn MD [address] [place], [place] [phone] PCP - General Family Medicine 10/17/22 Watermaster Relationship Specialty Start Date End Date Cyndi Horn MD [address] [place] [address] PCP - General Family Medicine 10/17/22 Watermaster Relationship Specialty Start Date End Date Cyndi Horn MD [address] [place] [address] PCP - General Family Medicine 10/17/22 Watermaster Relationship Specialty Start Date End Date Cyndi Horn MD [address] [place] [address] PCP - General Family Medicine 10/17/22 Watermaster Relationship Specialty Start Date End Date Cyndi Horn MD [address] [place] [address] PCP - General Family Medicine 10/17/22 Watermaster Relationship Specialty Start Date End Date Cyndi Horn MD [address] [place], [place] [phone] PCP - General Family Medicine 10/17/22 Watermaster Relationship Specialty Start Date End Date Cyndi Horn MD [address] [place], [place] [phone] PCP - General Family Medicine 10/17/22 Watermaster Relationship Specialty Start Date End Date Cyndi Horn MD [address] [place], [place] [phone] PCP - General Family Medicine 05/20/16 Watermaster Relationship Specialty Start Date End Date Cyndi Horn MD [address] [place], [place] [phone] PCP - General Family Medicine 05/20/16 Watermaster Relationship Specialty Start Date End Date Cyndi Horn MD [address] [place] [address] [place] [address] PCP - A[employer]na Medicare Advantage PCP 02/27/21 Cyndi Horn MD [address] [place] [address] [place] [address] PCP - General Family Medicine 05/31/22 Watermaster Relationship Specialty Start Date End Date Cyndi Horn MD [address] [place] [address] Medical Office [place], [place] [phone] PCP - A[employer]na Medicare Advantage PCP 02/27/21 Cyndi Horn MD [address] [facility] [place] [phone] PCP - General Family Medicine 05/31/22 Watermaster Relationship Specialty Start Date End Date Cyndi Horn MD [address] [place] [address] PCP - General Family Medicine 10/17/22 Watermaster Relationship Specialty Start Date End Date Cyndi Horn MD [address] [place] [address] PCP - General Family Medicine 10/17/22 Watermaster Relationship Specialty Start Date End Date Cyndi Horn MD [address] [place] [place] [address] PCP - General Family Medicine 10/17/22 Watermaster Relationship Specialty Start Date End Date Cyndi Horn MD [address] [place], [place] [phone] PCP - General Family Medicine 10/17/22 Watermaster Relationship Specialty Start Date End Date Cyndi Horn MD [address] [place] [address] PCP - Aetna Medicare Advantage PCP 02/27/21 Cyndi Horn MD [address] [place] [address] PCP - General Family Medicine 05/31/22 Watermaster Relationship Specialty Start Date End Date Cyndi Horn MD [address] [place] [address] [phone] PCP - A[employer]na Medicare Advantage PCP 02/27/21 Cyndi Horn MD [address] [place] [address] [place] [address] PCP - General Family Medicine 05/31/22 Watermaster Relationship Specialty Start Date End Date Cyndi Horn MD [address] [place] [address] [place] [phone] PCP - Aetna Medicare Advantage PCP 02/27/21 Cyndi Horn MD [address] [place], [place] [phone] PCP - General Family Medicine 05/31/22 Watermaster Relationship Specialty Start Date End Date Cyndi Horn MD [address] [place] [address] PCP - General Family Medicine 10/17/22 Watermaster Relationship Specialty Start Date End Date Cyndi Horn MD [address] [place] [address] PCP - Aetna Medicare Advantage PCP 02/27/21 Cyndi Horn MD [address] [place] [address] PCP - General Family Medicine 05/31/22 Watermaster Relationship Specialty Start Date End Date Cyndi Horn MD [address] [place] [address] PCP - General Family Medicine 10/17/22 Watermaster Relationship Specialty Start Date End Date Cyndi Horn MD [address] [facility] [place] [address] PCP - Aetna Medicare Advantage PCP 02/27/21 Cyndi Horn MD [address] [facility] [place] [address] PCP - General Family Medicine 05/31/22 Watermaster Relationship Specialty Start Date End Date Cyndi Horn MD [address] [place] [address] PCP - General Family Medicine 10/17/22 Watermaster Relationship Specialty Start Date End Date Cyndi Horn MD [address] [place] [address] PCP - General Family Medicine 10/17/22 Watermaster Relationship Specialty Start Date End Date Cyndi Horn MD [address] [place] [address] PCP - General Family Medicine 10/17/22 Watermaster Relationship Specialty Start Date End Date Cyndi Horn MD [address] [address] PCP - Aetna Medicare Advantage PCP 02/27/21 Cyndi Horn MD [address] [address] PCP - General Family Medicine 05/31/22 Watermaster Relationship Specialty Start Date End Date Cyndi Horn MD [address] [place] [address] PCP - General Family Medicine 10/17/22 Watermaster Relationship Specialty Start Date End Date Cyndi Horn MD [address] [address] PCP - Aetna Medicare Advantage PCP 02/27/21 Cyndi Horn MD [address] [address] PCP - General Family Medicine 05/31/22 Watermaster Relationship Specialty Start Date End Date Cyndi Horn MD [address] [facility] [place] [address] PCP - Aetna Medicare Advantage PCP 02/27/21 Cyndi Horn MD [address] [facility] [place] [address] PCP - General Family Medicine 05/31/22 Watermaster Relationship Specialty Start Date End Date Cyndi Horn MD [address] [address] PCP - Aetna Medicare Advantage PCP 02/27/21 Cyndi Horn MD [address] [address] PCP - General Family Medicine 05/31/22 Watermaster Relationship Specialty Start Date End Date Cyndi Horn MD [address] [address] PCP - Aetna Medicare Advantage PCP 02/27/21 Cyndi Horn MD [address] [address] PCP - General Family Medicine 05/31/22 Watermaster Relationship Specialty Start Date End Date Cyndi Horn MD [address] [place] [phone] PCP - General Family Medicine 05/20/16 Watermaster Relationship Specialty Start Date End Date Cyndi Horn MD [address] [place] [address] [place] [address] PCP - Aetna Medicare Advantage PCP 02/27/21 Cyndi Horn MD [address] [address] PCP - General Family Medicine 05/31/22 Watermaster Relationship Specialty Start Date End Date Cyndi Horn MD [address] [address] PCP - Aetna Medicare Advantage PCP 02/27/21 Cyndi Horn MD [address] [address] PCP - General Family Medicine 05/31/22 Watermaster Relationship Specialty Start Date End Date Cyndi Horn MD [address] [address] PCP - Aetna Medicare Advantage PCP 02/27/21 Cyndi Horn MD [address] [address] PCP - General Family Medicine 05/31/22 Watermaster Relationship Specialty Start Date End Date Cyndi Horn MD [address] [address] PCP - Aetna Medicare Advantage PCP 02/27/21 Cyndi Horn MD [address] [place] [address] [place] [address] PCP - General Family Medicine 05/31/22 Watermaster Relationship Specialty Start Date End Date Cyndi Horn MD [address] [place] [address] [place] [address] PCP - Aetna Medicare Advantage PCP 02/27/21 Cyndi Horn MD [address] [place] [address] [place] [address] PCP - General Family Medicine 05/31/22 Napoleon Oreilly Mortar MakerCollision Mechanic 09/25/24 Watermaster Relationship Specialty [place] [address] [place] [phone] PCP - General Family Medicine 05/20/16 Watermaster Relationship Specialty Start Date End Date Cyndi Horn MD [address] [place] [address] [place] [address] PCP - Aetna Medicare Advantage PCP 02/27/21 Cyndi Horn MD [address] [place] [address] [place] [address] PCP - General Family Medicine 05/31/22 Napoleon Oreilly Mortar MakerCollision Mechanic 09/25/24 Watermaster Relationship Specialty Start Date End Date Cyndi Horn MD [address] [place] [address] [place] [address] PCP - Aetna Medicare Advantage PCP 02/27/21 Cyndi Horn MD [address] [place] [address] [place] [address] PCP - General Family Medicine 05/31/22 Napoleon Oreilly Case Management 09/25/24 Watermaster Relationship Specialty Start Date End Date Cyndi Horn MD [address] [place] [address] [place] [address] PCP - Aetna Medicare Advantage PCP 02/27/21 Cyndi Horn MD [address] [place] [address] [place] [address] PCP - General Family Medicine 05/31/22 Napoleon Oreilly Collision Mechanic 09/25/24 Watermaster Relationship Specialty Start Date End Date Cyndi Horn MD [address] [place] [address] [place] [address] PCP - Aetna Medicare Advantage PCP 02/27/21 Cyndi Horn MD [address] [place] [address] [place] [address] PCP - General Family Medicine 05/31/22 Napoleon Oreilly Case Management 09/25/24 Watermaster Relationship Specialty Start Date End Date Cyndi oHrn MD [address] [place] [address] [place] [address] PCP - Aetna Medicare Advantage PCP 02/27/21 Cyndi Horn MD [address] [place] [address] [place] [address] PCP - General Family Medicine 05/31/22 Napoleon Oreilly Collision Mechanic 09/25/24 Watermaster Relationship Specialty Start Date End Date Cyndi Horn MD [address] [place] [phone] PCP - General Family Medicine 05/20/16 Watermaster Relationship Specialty Start Date End Date Cyndi Horn MD [address] [place] [address] [place] [address] PCP - Aetna Medicare Advantage PCP 02/27/21 Cyndi Horn MD [address] [place] [address] [place] [address] PCP - General Family Medicine 05/31/22 Napoleon Oreilly Collision Mechanic 09/25/24 Watermaster Relationship Specialty Start Date End Date Cyndi Horn MD [address] [place] [address] [place] [address] PCP - Aetna Medicare Advantage PCP 02/27/21 Cyndi Horn MD [address] [place] [address] [place] [address] PCP - General Family Medicine 05/31/22 Napoleon Oreilly Mortar MakerCollision Mechanic 09/25/24 Watermaster Relationship Specialty Start Date End Date Cyndi Horn MD [address] [place] [address] [place] [address] PCP - Aetna Medicare Advantage PCP 02/27/21 Cyndi Horn MD [address] [place] [address] [place] [address] PCP - General Family Medicine 05/31/22 Napoleon Oreilly Mortar MakerCollision Mechanic 09/25/24 Watermaster Relationship Specialty Start Date End Date Cyndi Horn MD [address] [place] [address] [place] [address] PCP - Aetna Medicare Advantage PCP 02/27/21 Cyndi Horn MD [address] [place] [address] [place] [address] PCP - General Family Medicine 05/31/22 Napoleon Oreilly Mortar MakerCollision Mechanic 09/25/24 Watermaster Relationship Specialty Start Date End Date Cyndi Horn MD [address] [place] [address] [place] [address] PCP - Aetna Medicare Advantage PCP 02/27/21 Cyndi Horn MD [address] [place] [address] [place] [address], [place] [address] PCP - General Family Medicine 05/31/22 Napoleon Oreilly Mortar MakerCollision Mechanic 09/25/24 Watermaster Relationship Specialty Start Date End Date Cyndi Horn MD [address] [place] [address] [place] [address], [place] [address] PCP - Aetna Medicare Advantage PCP 02/27/21 Cyndi Horn MD [address] [place] [address] [place] [address], [place] [address] PCP - General Family Medicine 05/31/22 [facility] Mortar MakerCollision Mechanic 09/25/24 Watermaster Relationship Specialty Start Date End Date Cyndi Horn MD [address] [place] [phone] PCP - General Family Medicine 05/20/16 Watermaster Relationship Specialty Start Date End Date Cyndi Horn MD [address] [place] [address] [place] [address] PCP - Aetna Medicare Advantage PCP 02/27/21 Cyndi Horn MD [address] [place] [address] [place] [address] PCP - General Family Medicine 05/31/22 Napoleon Oreilly Case Management 09/25/24 11/15/24 Watermaster Relationship Specialty Start Date End Date Cyndi Horn MD [address] [place] [address] [place] [address] PCP - Aetna Medicare Advantage PCP 02/27/21 Cyndi Horn MD [address] [place] [address] [place] [address] PCP - General Family Medicine 05/31/22 Napoleon Oreilly Mortar MakerCollision Mechanic 11/18/24 Watermaster Relationship Specialty Start Date End Date Cyndi Horn MD [address] [place] [address] [place] [address] PCP - Aetna Medicare Advantage PCP 02/27/21 Cyndi Horn MD [address] [place] [address] [place] [address] PCP - General Family Medicine 05/31/22 Napoleon Oreilly Mortar MakerCollision Mechanic 11/18/24 Watermaster Relationship Specialty Start Date End Date Cyndi Horn MD [address] [place] [address] [place] [address] PCP - Aetna Medicare Advantage PCP 02/27/21 Cyndi Horn MD [address] [place] [address] [place] [address] PCP - General Family Medicine 05/31/22 Napoleon Oreilly Mortar MakerCollision Mechanic 09/25/24 11/15/24 Watermaster Relationship Specialty Start Date End Date Cyndi Horn MD [address] [place] [address] [place] [address] PCP - Aetna Medicare Advantage PCP 02/27/21 Cyndi Horn MD [address] [place] [address] [place] [address] PCP - General Family Medicine 05/31/22 Napoleon Oreilly Mortar MakerCollision Mechanic 11/18/24 Watermaster Relationship Specialty Start Date End Date Cyndi Horn MD [address] [place] [address] [place] [address] PCP - Aetna Medicare Advantage PCP 02/27/21 Cyndi Horn MD [address] [place] [address] [place] [address] PCP - General Family Medicine 05/31/22 Napoleon Oreilly Mortar MakerCollision Mechanic 11/18/24 Watermaster Relationship Specialty Start Date End Date Cyndi Horn MD [address] [place] [address] [place] [address] PCP - Aetna Medicare Advantage PCP 02/27/21 Cyndi Horn MD [address] [place] [address] [place] [address] PCP - General Family Medicine 05/31/22 Napoleon Oreilly Mortar MakerCollision Mechanic 11/18/24 Watermaster Relationship Specialty Start Date End Date Cyndi Horn MD [address] [place] [address] [place] [address] PCP - Aetna Medicare Advantage PCP 02/27/21 Cyndi Horn MD [address] [place] [address] [place] [address] PCP - General Family Medicine 05/31/22 Napoleon Oreilly Mortar MakerCollision Mechanic 11/18/24 Watermaster Relationship Specialty Start Date End Date Cyndi Horn MD [address] [place] [phone] PCP - Aetna Medicare Advantage PCP 02/27/21 Cyndi Horn MD [address] [place] [phone] PCP - General Family Medicine 05/31/22 Napoleon Oreilly Mortar MakerCollision Mechanic 11/18/24 Asya Cunha MD [address] [place] [address] [place] [address] Consulting Physician Hematology and Oncology 12/30/24 Source Comments (unrecognize d section and content) In the event this informatio n is protected by the Federal Confidentiality of Alcohol and Drug Abuse Patient Records regulations: The Federal rules restrict any use of the information to criminally investigate or prosecute any alcohol or drug abuse patient.[facility] [place] the event this information is protected by the Federal Confidentiality of Alcohol and Drug Abuse Patient Records regulations: The Federal rules restrict any use of the information to criminally investigate or prosecute any alcohol or drug abuse patient.[facility] [place] the event this information is protected by the Federal Confidentiality of Alcohol and Drug Abuse Patient Records regulations: The Federal rules restrict any use of the information to criminally investigate or prosecute any alcohol or drug abuse patient.[facility] [place] the event this information is protected by the Federal Confidentiality of Alcohol and Drug Abuse Patient Records regulations: The Federal rules restrict any use of the information to criminally investigate or prosecute any alcohol or drug abuse patient.[facility] [place] the event this information is protected by the Federal Confidentiality of Alcohol and Drug Abuse Patient Records regulations: The Federal rules restrict any use of the information to criminally investigate or prosecute any alcohol or drug abuse patient.[facility] [place] the event this information is protected by the Federal Confidentiality of Alcohol and Drug Abuse Patient Records regulations: The Federal rules restrict any use of the information to criminally investigate or prosecute any alcohol or drug abuse patient.[facility] OhioIn the event this information is protected by the Federal Confidentiality of Alcohol and Drug Abuse Patient Records regulations: The Federal rules restrict any use of the information to criminally investigate or prosecute any alcohol or drug abuse patient.[facility] [place]In the event this information is protected by the Federal Confidentiality of Alcohol and Drug Abuse Patient Records regulations: The Federal rules restrict any use of the information to criminally investigate or prosecute any alcohol or drug abuse patient.[facility] [place]In the event this information is protected by the Federal Confidentiality of Alcohol and Drug Abuse Patient Records regulations: The Federal rules restrict any use of the information to criminally investigate or prosecute any alcohol or drug abuse patient.[facility] [facility] [place] the event this information is protected by the Federal Confidentiality of Alcohol and Drug Abuse Patient Records regulations: The Federal rules restrict any use of the information to criminally investigate or prosecute any alcohol or drug abuse patient.[facility] [place] the event this information is protected by the Federal Confidentiality of Alcohol and Drug Abuse Patient Records regulations: The Federal rules restrict any use of the information to criminally investigate or prosecute any alcohol or drug abuse patient.[facility] [place] the event this information is protected by the Federal Confidentiality of Alcohol and Drug Abuse Patient Records regulations: The Federal rules restrict any use of the information to criminally investigate or prosecute any alcohol or drug abuse patient.[facility] [place] the event this information is protected by the Federal Confidentiality of Alcohol and Drug Abuse Patient Records regulations: The Federal rules restrict any use of the information to criminally investigate or prosecute any alcohol or drug abuse patient.[facility] [place] the event this information is protected by the Federal Confidentiality of Alcohol and Drug Abuse Patient Records regulations: The Federal rules restrict any use of the information to criminally investigate or prosecute any alcohol or drug abuse patient.[facility] [place] the event this information is protected by the Federal Confidentiality of Alcohol and Drug Abuse Patient Records regulations: The Federal rules restrict any use of the information to criminally investigate or prosecute any alcohol or drug abuse patient.[facility] [place] the event this information is protected by the Federal Confidentiality of Alcohol and Drug Abuse Patient Records regulations: The Federal rules restrict any use of the information to criminally investigate or prosecute any alcohol or drug abuse patient.[facility] [place] the event this information is protected by the Federal Confidentiality of Alcohol and Drug Abuse Patient Records regulations: The Federal rules restrict any use of the information to criminally investigate or prosecute any alcohol or drug abuse patient.[facility] [place] the event this information is protected by the Federal Confidentiality of Alcohol and Drug Abuse Patient Records regulations: The Federal rules restrict any use of the information to criminally investigate or prosecute any alcohol or drug abuse patient.[facility] [place] the event this information is protected by the Federal Confidentiality of Alcohol and Drug Abuse Patient Records regulations: The Federal rules restrict any use of the information to criminally investigate or prosecute any alcohol or drug abuse patient.[facility] [place] the event this information is protected by the Federal Confidentiality of Alcohol and Drug Abuse Patient Records regulations: The Federal rules restrict any use of the information to criminally investigate or prosecute any alcohol or drug abuse patient.[facility] [place] the event this information is protected by the Federal Confidentiality of Alcohol and Drug Abuse Patient Records regulations: The Federal rules restrict any use of the information to criminally investigate or prosecute any alcohol or drug abuse patient.[facility] [place] the event this information is protected by the Federal Confidentiality of Alcohol and Drug Abuse Patient Records regulations: The Federal rules restrict any use of the information to criminally investigate or prosecute any alcohol or drug abuse patient.[facility] [place] the event this information is protected by the Federal Confidentiality of Alcohol and Drug Abuse Patient Records regulations: The Federal rules restrict any use of the information to criminally investigate or prosecute any alcohol or drug abuse patient.[facility] [place] the event this information is protected by the Federal Confidentiality of Alcohol and Drug Abuse Patient Records regulations: The Federal rules restrict any use of the information to criminally investigate or prosecute any alcohol or drug abuse patient.[facility] [place] the event this information is protected by the Federal Confidentiality of Alcohol and Drug Abuse Patient Records regulations: The Federal rules restrict any use of the information to criminally investigate or prosecute any alcohol or drug abuse patient.[facility] [place] the event this information is protected by the Federal Confidentiality of Alcohol and Drug Abuse Patient Records regulations: The Federal rules restrict any use of the information to criminally investigate or prosecute any alcohol or drug abuse patient.[facility] [place] the event this information is protected by the Federal Confidentiality of Alcohol and Drug Abuse Patient Records regulations: The Federal rules restrict any use of the information to criminally investigate or prosecute any alcohol or drug abuse patient.[facility] [place] Reason for Visit (unrecogniz ed section and content) Reason Comments Pre-Op Visit Specialty Diagnoses / Procedures Referred By Contac t Referred To Contact [facility] Diagnoses Vaginal vault prolapse Cystocele, midline Procedures URODYNAMICS WHI COMPLX CYSTOMETRO W/VOID PRESS&URETHRAL PROFILE [place], Lorena Sanches MD [address] [place] [address] [facility] [address] [place] [address] Referral ID Status Reason Start Date Expiration Date V isits Requested Visits Authorized [id number] Closed Auto-Generate d Referral 02/01/2022 02/01/2023 1 1 Reason Comments New Patient Evaluation Reason Comments Hypertension Foot Swelling Reason Comments Surgery Scheduling Clarification Future Appointment Reason Comments Follow-up Specialty Diagnoses / Procedures Referred By Contac t Referred To Contact Primary Care Diagnoses Primary hypertension Procedures Follow Up In Primary Care Cyndi Horn MD [address] [facility] Medical Office [place] [id number] Referral ID Status Reason Start Date Expiration Date V isits Requested Visits Authorized [id number] Authorized 06/01/2022 11/28/2022 1 1 Reason Comments Sleep Apnea Reason Onset Date Comments Pre-Op Teaching 10/26/2022 Specialty Diagnoses / Procedures Referred By Contac t Referred To Contact ANESTHESIOLOGY Diagnoses PRE OP Procedures COMPLETE PACC Lorena Urbina MD [address] [place] [address] 4, P[address] [place] [address] Referral ID Status Reason Start Date Expiration Date V isits Requested Visits Authorized [id number] Pending Review 11/08/2022 02/06/2023 1 1 Reason Comments Results Reason Comments Patient Question Reason Comments Sleep Apnea Specialty Diagnoses / Procedures [facility]erred [facility] Referred To Contact Dentistry / DENTISTRY Diagnoses MARCY (obstructive sleep apnea) Difficulty with CPAP use Procedures CONSULT TO DENTISTRY OFFICE/OUTPATIENT [facility] 60-74 MINUTES Naomi Trejo MD [address] [place] [address] [facility] [address] [place] [address] Referral ID Status Reason Start Date Expiration Date Visits Requested Visits Authorized [id number] Pending Review PCP Requested Referral 07/04/2022 07/04/2023 2 1 Specialty Diagnoses / Procedures Referred [facility] Referred To Contact Dentistry / DENTISTRY Diagnoses Obstructive sleep apnea (adult) (pediatric) Sleep Impressions Procedures ORAL DEVICE/APPLIANCE CUSFAB DENT SLEEP FOLLOW UP Naomi Trejo MD [address] [place] [address] Rodri Benoit DMD [address] [place] [address] Referral ID Status Reason Start Date Expiration Date V isits Requested Visits Authorized [id number] Authorized 02/27/2022 02/26/2023 99 99 Reason Comments Post-Op Visit Reason Comments Covid-19 Screening Cough, sroe throat, hoarse , x 5 days Reason Comments Annual Exam Reason Comments Post Op Specialty Diagnoses / Procedures Referred By Contac t Referred To Contact Radiology Diagnoses Nontoxic single thyroid nodule Procedures US thyroid Abdiaziz Davenport MD [address] [facility] [address] [place] [address] Referral ID Status Reason Start Date Expiration Date Visits Requested Visits Authorized [id number] Authorized Perform Procedure 02/28/2023 02/28/2024 1 1 Reason Comments Appointment Specialty Diagnoses / Procedures Referred By Contac t Referred To Contact Radiology Diagnoses Screening mammogram for breast cancer Procedures BI mammo bilateral screening tomosynthesis Cyndi Horn MD [address] [place] [address] Referral ID Status Reason Start Date Expiration Date Visits Requested Visits Authorized [id number] Authorized Perform Procedure 02/02/2023 02/02/2024 1 1 Specialty Diagnoses / Procedures Referred By Contac t Referred To Contact Radiology Diagnoses Menopause Procedures XR DEXA bone density Cyndi Horn MD [address] [place] [address] Referral ID Status Reason Start Date Expiration Date Visits Requested Visits Authorized [id number] Pending Review Perform Procedure 02/02/2023 02/02/2024 1 1 Reason Comments Follow-up Specialty Diagnoses / Procedures Referred By Contac t Referred To Contact Radiology Diagnoses Chronic midline thoracic back pain Procedures XR thoracic spine 3 views Cyndi Horn MD [address] [place] [address] Referral ID Status Reason Start Date Expiration Date Visits Requested Visits Authorized [id number] Authorized Perform Procedure 06/15/2023 06/14/2024 1 1 Reason Comments Med check Reason Comments Follow Up Reason Comments New Patient Visit Abnormal cardiac CT Specialty Diagnoses / Procedures Referred By Contac t Referred To Contact Cardiology Diagnoses Abnormal screening cardiac CT Cyndi Horn MD [address] [facility] [address] [place] [address] Phone: tel: fax: Referral ID Status Reason Start Date Expiration Date Visits Requested Visits Authorized [id number] Authorized Specialty Services Required 12/06/2024 1 1 Reason Comments Medication Question Specialty Diagnoses / Procedures Referred By Ron andrade Referred To Contact Radiology Diagnoses Screening for heart disease Procedures CT cardiac scoring wo IV contrast Cyndi Horn MD [address] [place] [address] Referral ID Status Reason Start Date Expiration Date Visits Requested Visits Authorized [id number] Pending Review Perform Procedure 10/19/2023 10/18/2024 1 1 Reason Comments Leg Pain X Monday, cramps in calf that caused her to be unable to sleep, states she now feels it in her thigh, is now traveling up L hip, R shoulder, shooting pains, concern for sciatica, family hx of heart issues Reason Comments Back Pain Reason Comments Sciatica Reason Comments Back Pain Fall Pt recently diagnose d with sciatic pain. On prednisone, meloxicam and gabopentin. Pt reports falls x 3 this week, states my leg just gives out on me. Denies injury. Specialty Diagnoses / Procedures Referred By Ron andrade Referred To Contact Diagnoses Hyponatremia Generalized weakness Multiple falls Acute left-sided low back pain with left-sided sciatica Procedures ip Camryn Child MD [address] [place] [address] Phone: tel: fax: [facility] [address] [place] [phone] Phone: tel: Referral ID Status Reason Start Date Expiration Date Visits Re quested Visits Authorized [id number] 1 1 Reason Comments Follow-up Reason Comments Back Pain NEW PATIENT, LEFT LO WER BACK AND BILATERAL LEG SCIATIC PAIN AND WEAKNESS FOR THE PAST 4 WEEKS,NUMBNESS TO RIGHT LEG, SHE HAS FALLEN THREE TIMES TRYING TO STEP UP AND HER LEFT LEG GAVE OUT SHE BRACED HERSELF WITH HER RIGHT HAND AND HAS TINGLING WAITING ON EMG, SHE HAS WEAKNESS IN THE LEFT LEG CANNOT EVEN LIFT HER LEFT LEG, VERY PAINFUL, SHE WAS GIVEN PREDNISONE AND DID GET RELIEF WITH THE TAPER PACK, SHE TAKES TRAMADOL AND TYLENOL, Specialty Diagnoses / Procedures Referred By Contac t Referred To Contact Pain Medicine Diagnoses Lumbar radiculopathy Cyndi Horn MD [address] [address] Phone: tel: fax: Referral ID Status Reason Start Date Expiration Date Visits Requested Visits Authorized [id number] Authorized Specialty Services Required 10/01/2024 10/01/2025 1 1 Reason Comments Follow-up Hospital Reason Comments Follow-up 2 weeksReview labs Specialty Diagnoses / Procedures Referred By Contac t Referred To Contact Nephrology Diagnoses Hyponatremia Procedures Follow Up In Nephrology Gerson Ram, [address] [address] Phone: tel: fax: Referral ID Status Reason Start Date Expiration Date V isits Requested Visits Authorized [id number] Authorized 10/03/2024 10/03/2025 1 1 Reason Comments New Patient Visit X-RAYS -25-25 EMGHas braces wearing them at night Specialty Diagnoses / Procedures Referred By Contac t Referred To Contact Orthopaedic Surgery / Orthopedic Surgery Diagnoses Right carpal tunnel syndrome Cyndi Horn MD [address] [address] Phone: tel: fax: Referral ID Status Reason Start Date Expiration Date Visits Requested Visits Authorized [id number] Authorized Specialty Services Required 10/29/2024 10/29/2025 1 1 Reason Comments Weakness, Gen Pt arrived to ED wit h c/o weakness to left side of body. Pt states she was seen 6 weeks ago for a similar thing and she had low sodium. Pt also c/o a fall this past from her left leg giving out. Pt also c/o decreased appetite. Reason Comments Follow-up ER visit 11/02 Reason Comments pulmonary embolism Pt was called by and told she has bilateral PE, pt denies SOB/chest pain. Pt reports bilateral leg and hip pain, left worse than right. Specialty Diagnoses / Procedures Referred By Contac t Referred To Contact Diagnoses Personal history of pulmonary embolism Acute pulmonary embolism without acute cor pulmonale, unspecified pulmonary embolism type (Multi) Procedures . Suzanne Steward MD [address] [place] [address] Phone: tel: fax: [facility] [address] [place] [phone] Phone: tel: Referral ID Status Reason Start Date Expiration Date Visits Re quested Visits Authorized [id number] 1 1 Reason Comments Follow-up Reason Comments Follow-up FOLLOW UP CAUDAL RADHA DONE ON 10/15/24 PATIENT HAD SHORT TERM RELIEF FOR 2 WEEKS, SHE WAS DOING PHYSICAL THERAPY EXERCISES AND WALKING WITH A WALKER, ON 11/02/24 SHE FELL AND LANDED ON HER LEFT SIDE WAS TAKEN TO THE ER, SHE STATES SHE FELT HER LEFT LEG GO OUT, SHE WENT TO THE ER, SHE HAS HAD MULTIPLE FALLS AND FEELING HER LEFT LEG GO OUT, Reason Comments Follow-up Patient here in clin for follow up visit after initiating Lyrica. Patient and patient's daughter state that they think this therapy has been helpful with her nerve pain. Patient states she does have intermittent low back pain, and complains of numbness/tingling in feet and toes. Left being more severe than the right. She uses lidocaine cream on her back for pain relief when needed. Patient does report that she has been taking her Lyrica at dinner time, then again at bedtime. Reason Comments Follow-up X-RAYS EMGHas braces wearing them at night Reason Comments New Patient Visit Specialty Diagnoses / Procedures Referred By Ron andrade Referred To Contact Hematology and Oncology Diagnoses Other acute pulmonary embolism without acute cor pulmonale Cyndi Horn MD [address] [place] [address] Phone: tel: fax: Referral ID Status Reason Start Date Expiration Date Visits Requested Visits Authorized [id number] Authorized Specialty Services Required 11/18/2024 11/18/2025 1 1 Scheduled Active and Recently Administ ered Medications (unrecognized section and content) Medication Order 09/22/2024 09/23/2024 09/24/2024 aspirin EC tablet 81 mg 81 mg, oral, Daily, First dose on 09/22/24 at 0900, Do not crush, chew, or split. 0810 (Given - Provider: Joce Rayo RN) 0842 (Given - Provider: Rachel Curran, ANI) 1009 (Given - Provider: Rachael Warren RN) atorvastatin (Lipitor) tablet 20 mg 20 mg, oral, Daily, First dose on Mon09/22/24 at 2100 2052 (Given - Provider: Asya Bobo RN) 2036 (Given - Provider: Roseline Perdomo, RN) 2099 (Due - Provider: Lovely Manzo, MarquiseD) enoxaparin (Lovenox) syringe 40 mg 40 mg, subcutaneous, Every 24 hours, First dose on Mon09/21/24 at 2100, Indications: deep vein thrombosis prevention 2099 (Not Given - Provider: Asya Bobo RN - Reason: Patient/family refused) 2099 (Not Given - Provider: Roseline Perdomo RN - Reason: Patient/family refused) 2099 (Due) furosemide (Lasix) tablet 20 mg 20 mg, oral, 2 times daily (morning and late afternoon), First dose on Mon09/24/24 at 1700 1700 (Due) meloxicam (Mobic) tablet 15 mg 15 mg, oral, Daily with breakfast, First dose (after last modification) on Mon09/24/24 at 0915, May administer with food to reduce GI upset. 1010 (Given - Provider: Rachael Warren RN) sodium chloride tablet 2 g 2 g (2,000 mg), oral, 2 times daily (morning and late afternoon), First dose on Mon09/24/24 at 1700 1700 (Due) Continuous Medication Order 09/22/2024 09/23/2024 09/24/2024 sodium chloride 0.9% infusion (CANCELED) 125 mL/hr, intravenous, Continuous, Starting on Mon09/21/24 at 1935, For 1 day 0337 (New Bag - Provider: Lin Malone RN)0937 (Stopped - Provider: Joce Rayo RN - Comment: [Order ends at this time. Document the following action when infusion is complete: Stopped]) PRN Medication Order 09/22/2024 09/23/2024 09/24/2024 acetaminophen (Tylenol) tablet 650 mg 650 mg, oral, Every 4 hours PRN, pain mild (1-3), first line, Starting on 09/21/24 at 2038, Administer tablet or oral liquid per patient preference., If ordered PRN for pain, nurse is permitted to administer this medication for higher pain scores based on patient preference? Yes 1241 (Given - Provider: Joce Rayo RN) 0225 (Given - Provider: Asya Bobo RN) alum-mag hydroxide-simeth (Mylanta) 200-200-20 mg/5 mL oral suspension 20 mL 20 mL, oral, 4 times daily PRN, indigestion, heartburn, second line, Starting on 09/21/24 at 2038 benzocaine-menthol (Cepastat Sore Throat) lozenge 1 lozenge 1 lozenge, Mouth/Throat, Every 2 hour PRN, sore throat, Starting on 09/21/24 at 2038 benzonatate (Tessalon) capsule 100 mg 100 mg, oral, 3 times daily PRN, cough, Starting on 09/21/24 at 2038, Do not crush or chew. bisacodyl (Dulcolax) suppository 10 mg 10 mg, rectal, Daily PRN, constipation, second line, Starting on 09/21/24 at 2038 calcium carbonate (Tums) 500 mg (200 mg elemental) chewable tablet 2 tablet 2 tablet, oral, 4 times daily PRN, indigestion, heartburn, Starting on 09/21/24 at 2038 guaiFENesin (Mucinex) 12 hr tablet 600 mg 600 mg, oral, 2 times daily PRN, congestion, Starting on 09/21/24 at 2038, Administer with plenty of fluids to ensure proper action. Do not crush, chew, or split. hydrALAZINE (Apresoline) injection 10 mg 10 mg, intravenous, Every 4 hours PRN, SBP >180, DBP >100 (second line), Starting on 09/21/24 at 2038 HYDROmorphone (Dilaudid) injection 0.4 mg 0.4 mg, intravenous, Every 3 hours PRN, pain breakthrough, Starting on 09/21/24 at 2202 0020 (Given - Provider: Lin Malone RN)0334 (Given - Provider: Lin Malone RN)0810 (Given - Provider: Joce Rayo, RN)2118 (Given - Provider: Asya Bobo, ANI) 0842 (Given - Provider: Rachel Curran, ANI)1355 (Given - Provider: Rachel Curran RN)2038 (Given - Provider: Roseline Perdomo, ANI) 0443 (Given - Provider: Roseline Perdomo, ANI) hydrOXYzine HCL (Atarax) tablet 25 mg 25 mg, oral, Every 4 hours PRN, anxiety, itching, Starting on 09/21/24 at 2038 melatonin tablet 6 mg 6 mg, oral, Nightly PRN, sleep, Starting on 09/21/24 at 2038 2052 (Given - Provider: Asya Bobo RN) meloxicam (Mobic) tablet 15 mg (CANCELED) 15 mg, oral, Daily PRN, pain, Starting on 09/21/24 at 2038, May administer with food to reduce GI upset. 0023 (Given - Provider: Roseline Perdomo RN) methocarbamol (Robaxin) tablet 500 mg 500 mg, oral, Nightly PRN, muscle spasms, Starting on 09/21/24 at 2038 metoprolol tartrate (Lopressor) injection 5 mg 5 mg, intravenous, Every 6 hours PRN, sbp >180, DBP >100, HR >120 (hold for HR <55), Starting on 09/21/24 at 2038 ondansetron (Zofran) injection 4 mg 4 mg, intravenous, Every 4 hours PRN, nausea/vomiting, first line, Starting on 09/21/24 at 2038, When administering via IV Push, administer over 3-5 minutes. oxyCODONE (Roxicodone) immediate release tablet 5 mg (CANCELED) 5 mg, oral, Every 6 hours PRN, pain moderate (4-6), first line, Starting on 09/22/24 at 1250, If ordered PRN for pain, nurse is permitted to administer this medication for higher pain scores based on patient preference? Yes 224 (Given - Provider: Asya Bobo RN) polyethylene glycol (Glycolax, Miralax) packet 17 g 17 g, oral, Daily PRN, constipation, Starting on 09/21/24 at 2038 prochlorperazine (Compazine) injection 10 mg 10 mg, intravenous, Every 6 hours PRN, nausea/vomiting, second line, Starting on 09/21/24 at 2039, Give IV if patient is unable to take orally. traMADol (Ultram) tablet 50 mg 50 mg, oral, Every 8 hours PRN, pain severe (7-10), first line, Starting on Mon09/24/24 at 0857, Max of 300 mg daily for patients > 75 years of age., If ordered PRN for pain, nurse is permitted to administer this medication for higher pain scores based on patient preference? Yes 1009 (Given - Provider: Rachael Warren RN) Continuous Medication Order 10/31/2024 11/01/2024 11/02/2024 sodium chloride 0.9% infusion 150 mL/hr, intravenous, Continuous, Starting on 11/02/24 at 1450, For 1 day 1524 (New Bag - Prov ider: Deedee Cunha RN)1804 (Stopped - Provider: Deedee Cunha RN) Scheduled Medication Order 11/14/2024 11/15/2024 11/16/2024 apixaban (Eliquis) tablet 10 mg(Linked Group 1) 10 mg, oral, 2 times daily, First dose on 11/16/24 at 1045, For 7 days 1158 (Given - Provider: Miranda Serna RN)2100 (Due) apixaban (Eliquis) tablet 5 mg(Linked Group 1) 5 mg, oral, 2 times daily, First dose on 11/23/24 at 0900 atorvastatin (Lipitor) tablet 20 mg 20 mg, oral, Daily, First dose on Mon11/15/24 at 0900 0857 (Given - Provider: Margaret Mcfarland RN) 0930 (Given - Provider: Miranda Serna, ANI) DULoxetine (Cymbalta) DR capsule 30 mg 30 mg, oral, Daily, First dose on Mon11/15/24 at 0900, Do not crush or chew. 0857 (Given - Provider: Margaret Mcfarland RN) 0929 (Given - Provider: Miranda Serna, ANI) furosemide (Lasix) tablet 20 mg 20 mg, oral, 2 times daily (morning and late afternoon), First dose on [place] 11/14/24 at 1700 1803 (Given - Provider: Rachel Curran RN) 0857 (Given - Provider: Margaret Mcfarland RN)1720 (Given - Provider: Margaret Mcfarland, ANI) 0930 (Given - Provider: Miranda Serna, ANI)1700 (Due) heparin bolus from bag 4,300 Units (COMPLETED) 4,300 Units (rounded from 4,264 Units = 80 Units/kg 53.3 kg), intravenous, Once, On Roc[place] 11/14/24 at 0915, For 1 dose, Initial bolus. 1000 (Bolus from Bag - Provider: Naveed Smiley, ANI) iohexol (OMNIPaque) 350 mg iodine/mL solution 68 mL (COMPLETED) 68 mL, intravenous, Once in imaging, Starting on Roc[place] 11/14/24 at 1215, For 1 dose 1216 (Given - Provider: Sky Luis, RT - Comment: 3.5 mL/s) lactobacillus acidophilus capsule 1 capsule 1 capsule, oral, Daily, First dose on Mon11/15/24 at 0900 0857 (Given - Provider: Margaret Mcfarland RN) 0928 (Given - Provider: Miradna Serna, ANI) losartan (Cozaar) tablet 25 mg 25 mg, oral, Daily, First dose on Mon11/15/24 at 0900 0857 (Given - Provider: Margaret Mcfarland RN - Comment: pt states she only takes 12.5mg) 0930 (Given - Provider: Miranda Serna, ANI) mirtazapine (Remeron) tablet 15 mg 15 mg, oral, Nightly, First dose on Mon11/14/24 at 2100 2012 (Given - Provider: Gerson Phillips, ANI) 2126 (Not Given - Provider: Elle Hilton RN - Reason: Patient/family refused) 2099 (Due) polyethylene glycol (Glycolax, Miralax) packet 17 g 17 g, oral, Daily, First dose on Roc[place] 11/14/24 at 1645, Bowel Regimen - for prevention of constipation. 1803 (Given - Provider: Rachel Curran RN) 1719 (Not Given - Provider: Margaret Mcfarland RN - Reason: Patient/family refused - Comment: per pt request) 0928 (Not Given - Provider: Miranda Serna RN - Reason: Patient/family refused) potassium chloride (Klor-Con) packet 20 mEq 20 mEq, oral, Daily, First dose on [place] 11/14/24 at 1645, Dissolve each packet in 4 ounces of water = 5 mEq per 1 oz fluid. 1803 (Given - Provider: Rachel Curran RN) 1726 (Canceled Entry - Provider: Margaret Mcfarland RN)1747 (Given - Provider: Margaret Mcfarland RN - Comment: re-timed d/t pt request)2100 (Canceled Entry - Provider: Margaret Mcfarland RN) 0928 (Given - Provider: Miranda Serna RN) potassium chloride (Klor-Con) packet 20 mEq (COMPLETED) 20 mEq, oral, Once, On 11/16/24 at 1230, For 1 dose, Dissolve each packet in 4 ounces of water = 5 mEq per 1 oz fluid. 1254 (Given - Provider: Miranda Serna, ANI) sodium chloride tablet 2 g 2 g (2,000 mg), oral, 2 times daily (morning and late afternoon), First dose on [place] 11/14/24 at 1700 1803 (Given - Provider: Rachel Curran RN) 0857 (Given - Provider: Margaret Mcfarland RN)1720 (Given - Provider: Margaret Mcfarland RN) 0930 (Given - Provider: Miranda Serna, ANI)1700 (Due) Continuous Medication Order 11/14/2024 11/15/2024 11/16/2024 heparin 25,000 Units in dextrose 5% 250 mL (100 Units/mL) infusion (premix) (CANCELED) 0-4,500 Units/hr (0-45 mL/hr), intravenous, Continuous, Starting on [place] 11/14/24 at 0915, Until 11/16/24 at 1028, High Intensity Heparin Protocol (<70kg) Initial Dose: 18 units/kg/hr --> Use heparin calculator for units/hr rate Maximum Initial Dose: 2000 units/hr Recheck Heparin Assay, UFH level 4 hours after any rate change, or per protocol. Titration Table: Heparin Assay, UFH < 0.1: Bolus 4,000 units, INCREASE rate by 200 units/hr. , Heparin Assay, UFH 0.1 to 0.2: Bolus 2,000 units. INCREASE rate by 100 units/hr. Heparin Assay, UFH 0.3 to 0.7: (THERAPEUTIC) DO NOT CHANGE Infusion Rate. No Bolus. Heparin Assay, UFH 0.8 to 1: No Bolus. DECREASE rate by 100 unit/hour. Heparin Assay, UFH 1.1 to 1.2: No Bolus. HOLD heparin infusion for 1 hour, then DECREASE rate by 200 units/hour. Heparin Assay, UFH > 1.2: NoBolus. HOLD heparin infusion for 1 hour, then recheck heparin assay: *If repeat is > 0.7, continue to HOLD INFUSION. -Confirm last draw was performed correctly (pump was paused for a minimum of 2 minutes, sample NOT drawn off line/lumen where medication was infusing) -Contact provider for further orders. *If repeat is < or = 0.7, REDUCE previous infusion rate by 300 units/hour and restart infusion. -Recheck Heparin Assay, UFH in 4 hours after dose reduction. -Resume nomogram Resuming Heparin when interrupted or held due to a test/procedure: - If it was discontinued/held for < 4 hours: restart at previous therapeutic dose. If patient has not had a therapeutic dose, contact provider for orders. - If discontinued/held > 4 hours, contact provider for orders. Notify providerof last previous therapeutic dose, provider to place new orders (+/- bolus order). Provider to order any additional labs or monitoring, if needed. 0956 (New Bag - Provider: Naveed Smiley RN)1009 (Canceled Entry - Provider: Naveed Smiley RN)1500 (Held Per Protocol - Provider: Naveed Smiley RN)1600 (Restarted - Provider: Naveed D Kennish, RN)1700 (Rate/Dose Verify - Provider: Rachel Curran, RN)1939 (Rate/Dose Verify - Provider: Gerson Phillips, RN)2300 (Rate/Dose Verify - Provider: Gerson Phillips, RN) 0134 (Rate/Dose Verify - Provider: Gerson Phillips, RN)0238 (New Bag - Provider: Gerson Phillips, RN)0845 (Rate/Dose Verify - Provider: Margaret Mcfarland RN)1049 (Rate/Dose Verify - Provider: Margaret Mcfarland RN)1321 (Rate/Dose Verify - Provider: Margaret Mcfarland RN)1543 (Rate/Dose Verify - Provider: Margaret Mcfarland RN)1757 (Rate/Dose Verify - Provider: Margaret Mcfarland RN) 0238 (New Bag - Provider: Elle Hilton RN)1056 (Stopped - Provider: Miranda Serna RN - Comment: [Order ends at this time. Document the following action when infusion is complete: Stopped]) PRN Medication Order 11/14/2024 11/15/2024 11/16/2024 acetaminophen (Tylenol) tablet 650 mg(Linked Group 2) 650 mg, oral, Every 4 hours PRN, pain mild (1-3), first line, Starting on [place] 11/14/24 at 1629, Administer tablet or oral liquid per patient preference., If ordered PRN for pain, nurse is permitted to administer this medication for higher pain scores based on patient preference? Yes ipratropium-albuteroL (Duo-Neb) 0.5-2.5 mg/3 mL nebulizer solution 3 mL 3 mL, nebulization, Every 6 hours PRN, wheezing, Starting on [place] 11/14/24 at 1629 1835 (Not Given - Provider: Harley Turner RRT - Reason: Patient/family refused - Comment: patient denies need for treatment at this time. no shortness of breath no wheeze)2333 (Not Given - Provider: Harley Turner RRT - Reason: Patient/family refused - Comment: patient sleeping and did not want woke for treatment.) 0635 (Given - Provider: Brenda Cross RRT)1116 (Due)1925 (Not Given - Provider: Harley Turner RRT - Reason: Patient/family refused - Comment: denies need)2311 (Not Given - Provider: Harley Turner RRT - Reason: Patient/family refused - Comment: patient does not want treatment no shortness of breath) 0603 (Given - Provider: Marlyn Calero RRT)1106 (Not Given - Provider: Marlyn Calero RRT - Reason: Patient/family refused - Comment: Pt refused at this time. No SOB/Wheezing noted) morphine injection 0.5 mg 0.5 mg, intravenous, Every 4 hours PRN, pain moderate (4-6), first line, Starting on [place] 11/14/24 at 1629 morphine injection 1 mg 1 mg, intravenous, Every 4 hours PRN, pain severe (7-10), first line, Starting on [place] 11/14/24 at 1629 2259 (Given - Provider: Gerson Phillips, RN) 2233 (Given - Provider: Elle Hilton, ANI) 0235 (Given - Provider: Elle Hilton, ANI) ondansetron (Zofran) injection 4 mg(Linked Group 3) 4 mg, intravenous, Every 8 hours PRN, nausea/vomiting, first line, Starting on [place] 11/14/24 at 1629, Administer IV if patient unable to take oral tablet. When administering via IV Push, administer over 3-5 minutes. ondansetron ODT (Zofran-ODT) disintegrating tablet 4 mg(Linked Group 3) 4 mg, oral, Every 8 hours PRN, nausea/vomiting, first line, Starting on [place] 11/14/24 at 1629, 1st Line. Patient should allow tablet to dissolve on tongue. Do not remove from blister pack until just before administering. If inadequate response within 60 minutes, proceed to next-line agent for same PRN reason or contact provider if no further options ordered. zolpidem (Ambien) tablet 5 mg 5 mg, oral, Nightly PRN, sleep, Starting on [place] 11/14/24 at 1843 Linked Groups Order Group 1: apixaban (Eliquis) tablet 10 mgJump to med 10 mg, oral, 2 times daily, First dose on 11/16/24 at 1045, For 7 days Followed by apixaban (Eliquis) tablet 5 mgJump to med 5 mg, oral, 2 times daily, First dose on 11/23/24 at 0900 Group 2: acetaminophen (Tylenol) tablet 650 mgJump to med 650 mg, oral, Every 4 hours PRN, pain mild (1-3), first line, Starting on [place] 11/14/24 at 1629, Administer tablet or oral liquid per patient preference., If ordered PRN for pain, nurse is permitted to administer this medication for higher pain scores based on patient preference? Yes Or acetaminophen (Tylenol) oral liquid 650 mg (CANCELED) 650 mg, oral, Every 4 hours PRN, pain mild (1-3), first line, Starting on [place] 11/14/24 at 1629, Give oral liquid per feeding tube if present or if patient prefers oral liquid over tablets. Or acetaminophen (Tylenol) suppository 650 mg (CANCELED) 650 mg, rectal, Every 4 hours PRN, pain mild (1-3), first line, Starting on [place] 11/14/24 at 1629, Give rectally if unable to administer by mouth or feeding tube., If ordered PRN for pain, nurse is permitted to administer this medication for higher pain scores based on patient preference? Yes Group 3: ondansetron ODT (Zofran-ODT) disintegrating tablet 4 mgJump to med 4 mg, oral, Every 8 hours PRN, nausea/vomiting, first line, Starting on [place] 11/14/24 at 1629, 1st Line. Patient should allow tablet to dissolve on tongue. Do not remove from blister pack until just before administering. If inadequate response within 60 minutes, proceed to next-line agent for same PRN reason or contact provider if no further options ordered. Or ondansetron (Zofran) injection 4 mgJump to med 4 mg, intravenous, Every 8 hours PRN, nausea/vomiting, first line, Starting on [place] 11/14/24 at 1629, Administer IV if patient unable to take oral tablet. When administering via IV Push, administer over 3-5 minutes. FOR RECORDS PERTAINING TO PATIENTS WHO ARE OR HAVE BEEN ENROLLED IN A CHEMICAL DEPENDENCY/SUBSTANCEABUSE PROGRAM, SOME INFORMATION MAY BE OMITTED. This clinical summary was aggregated from multiple sources. Caution should be exercised in using it in the provision of clinical care. This summary normalizes information from multiple sources, and as a consequence, information in this document may materially change the coding, format and clinical context of patient data. In addition, data may be omitted in some cases. CLINICAL DECISIONS SHOULD BE BASED ON THE PRIMARY CLINICAL RECORDS. [facility]. provides no warranty or guarantee of the accuracy or completeness of information in this document.
--- NOTE | 2025-01-29 13:30 | NEURO ---
NCS and/or EMG Patient Report Ordering Doctor: Lovely Krueger NP DATE OF SERVICE: 01/29/25 Uzma presents for electrodiagnostic testing of the lower limbs. She reports a low back pain radiating into the left occasionally the right leg. She has a history of weakness in both legs. Electrodiagnostic findings: Left peroneal motor nerve demonstrates normal distal latency. Measurements at both the EDB and tibialis anterior showed decreased amplitude and conduction velocity. Right peroneal motor nerve demonstrates decreased motor amplitude and conduction velocity measured at the EDB. Decreased amplitude is also noted when measured at the tibialis anterior. Tibial motor response within normal limits bilaterally. Absent superficial peroneal response bilaterally. Sural latency within normal limits bilaterally. Prolonged left tibial H-reflex. Peroneal F-waves could not be obtained. Normal tibial F?wave bilaterally. Needle EMG testing was performed in the lower limbs. 1+ fibrillations were noted in the right vastus medialis, right tibialis anterior and right lumbar paraspinals. 1+ fibrillations also noted in the left tibialis anterior, left gastrocnemius and left lower lumbar paraspinals. Motor unit action potentials were normal amplitude and duration. Electrodiagnostic impression: This is an abnormal study 1. Electrodiagnostic findings are suggestive of acute right L4 radiculopathy. There is also evidence of acute left L5 and S1 radiculopathy. 2. 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 There is evidence of axonal loss and demyelination. Multi Select Codes Neurology Neurology Interp Codes: 27173-41 Musc test done w/n test comp (interp) (2) and 41196-21 Nrv cndj test 11-12 studies (interp)
== END | disposition home or self-care (01) ==
PROVIDERS: PCP Family Medicine; Referring Provider Nurse Practitioner Family; Visit Provider Nurse Practitioner Family
DX: G62.9 Polyneuropathy, unspecified (principal); G57.93 Unspecified mononeuropathy of bilateral lower limbs
CPT/HCPCS: 95886; 95912